=== PATIENT | male | born 1955 | race Caucasian/White ===

== ENCOUNTER 2016-09-30 15:04 | Emergency (ER) | payer MEDICARE, MEDICAID ==
[~2016-09-30 15:04] MED LIST: /HYDR10T PO; /LAMO20TA PO; /MOM400 PO; ABIL15TA PO; ABIL15TA2 PO; ACET-654 PO; ACET50TA PO; ALBU17IN2 INH; ARTISOL10 OU; ARTISOL2 OU; ASTE137S; ATIV2INJ2 IM; ATOR1TAB19 PO; AUGM500T34 PO; AUGM875T27 PO; AZEL0.055; AZEL0.1S3; BENZ1TA PO; BENZ1TAB PO; CALC0.25 PO; CARV3.12 PO; CEFD1CAP8 PO; CEPH500C PO; CLIN1CAP5 PO; CLON1TAB PO; COLA100C PO; COUM1TAB17 PO; COUM7.5T PO; DEPA500T2 PO; DIPH50VL IM; DOCU100T PO; DOXY100C PO; DOXY10CA PO; DOXY200C PO; DOXY75CA3 PO; ECON1CRE TOP; FLON0.05; FLON0.054; FLON1SPR; FRUICHW PO; HALD5INJ2 IM; HYDR-3363 PO; HYDR25T PO; KETOPOW TOP; KLON1TAB PO; LAMI200T3 PO; LATU80TA PO; LEVA250T PO; LIPI10TA PO; LITH1TAB PO; LITH300C PO; LITH300T2 PO; LOPR50TA PO; LORA2TA IM; MUPI2OI TOP; MYLASS PO; NATURAL TEARS OU; NYST100024 TOP; NYST10CR TOP; OLAN10TA2 PO; OMEP40CA2 PO; OXCA150T PO; PRIL20CA9 PO; PRIL40CA PO; RISP4TAB33 PO; ROCA0.25 PO; SENN15UDC PO; THERTAB30 PO; TRIL150T PO; TYLE325T5 PO; VITMTA PO; ZYPR15TA PO; ZYPR20TA PO; [UNRECOGNIZED DRUG - CODE] IM; [UNRECOGNIZED DRUG - CODE] TOP; [UNRECOGNIZED DRUG - OTHER] TOP
[2016-09-30 15:51] LABS: BASO % 0.6 % (0.0-1.0); EOS # 0.3 K/mm3 (0.0-0.50); EOS % 7.5 % (0.0-3.0); LARGE UNSTAINED CELL # 0.1 K/mm3 (0.0-0.4); LARGE UNSTAINED CELL % 3.1 % (0.0-4.0); LYMPH # 1.3 K/mm3 (1.5-4.5); LYMPH % 33.5 % (24.0-44.0); MEAN CORPUSCULAR HEMOGLOBIN 29.6 pg (27.0-33.0); MEAN CORPUSCULAR HGB CONC 32.5 g/dl (32.0-36.5); MEAN CORPUSCULAR VOLUME 91.2 fl (80.0-96.0); MONO # 0.3 K/mm3 (0.0-0.8); MONO % 8.2 % (0.0-5.0); NEUTROPHILS # 1.7 K/mm3 (1.8-7.7); PLATELET COUNT, AUTOMATED 167 k/mm3 (150-450); RED CELL DISTRIBUTION WIDTH 13.7 % (11.5-14.5); WHITE BLOOD COUNT 3.6 K/mm3 (4.0-10.0)
[2016-09-30 15:59] LABS: INR 2.4
[2016-09-30 16:23] LABS: CALCIUM LEVEL 9.5 MG/DL (8.8-10.2); CREATININE FOR GFR 2.03 MG/DL (0.70-1.30); GLOMERULAR FILTRATION RATE 35.8 (>49); POTASSIUM SERUM 4.2 MEQ/L (3.5-5.1)
--- NOTE | 2016-09-30 17:01 | REP ---
RIGHT LOWER EXTREMITY DOPPLER VENOUS ULTRASOUND: 09/30/2016. Comparison: 10/26/2015. Clinical history: Right lower extremity pain. Evaluate for DVT. Technique: The deep venous system of the right lower extremity is evaluated with king scale imaging, compression ultrasound, color imaging and duplex Doppler interrogation. Examination from the groin through the popliteal fossa into the proximal calf. Findings: There is full compressibility from the common femoral vein in the inguinal region through the popliteal vein. Color imaging confirms patency throughout the course of the deep venous system. There is respiratory variation and augmented flow at all levels. Impression: 1. No Doppler venous ultrasound evidence of DVT in the right lower extremity. Signed by Emiliano Morrlel MD 09/30/2016 04:52 P
--- NOTE | 2016-09-30 18:02 | EDDOCDS ---
Nurse's Notes [facility] Name: Palmira Gerard Age: 61 yrs Sex: Male : 1955 Arrival Date: 09/30/2016 Time: 15:04 Bed 15 Private MD: Diagnosis: Pain in unspecified limb-right - transient - no signs of DVT or cellulitis at this point Presentation: 09/30 15:10 Presenting complaint: EMS states: Pt with chronic cellulitis with reported pain to both kc3 legs. Adult Sepsis Screening:. Suicide/Homicide risk assessment- Unable to assess, due to patient's chronic mental disability. 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 Transition of care: patient was received from [facility]. 15:10 Acuity: LETITIA Level 3 kc3 15:10 Method Of Arrival: Ambulance kc3 15:22 Adult Sepsis Screening: The patient does not have new or worsening altered mentation. kc3 Patient's respiratory rate is less than 22. Systolic blood pressure is greater than 100. Patient has a qSOFA score of 0- Negative Sepsis Screen. Triage Assessment: 15:18 General: Appears in no apparent distress, comfortable, Behavior is agitated. Pain: kc3 Location: right leg and left leg. HIV screening NA for this visit Offered previously. Neurological: Level of Consciousness is awake, alert, Oriented to person, place. Respiratory: Airway is patent Respiratory effort is even, unlabored. Musculoskeletal: Circulation, motion, and sensation intact. Historical: - Allergies: NSAIDS; - Home Meds: 1. cogentin benztropine 1 mg twice a day 2. theragram M 1 tab daily 3. Colace 100 mg oral cap 2 caps twice a day 4. Klonopin 1 mg Oral tab 1 tab 3 times per day 5. Ativan 2mg IM as needed 6. Flonase 50 mcg/actuation Nasal spsn 2 sprays once daily 7. Zyprexa 30 mg Oral twice a day 8. lithium carbonate 300 mg Oral TbER 2 times per day 9. Lamictal 200 mg Oral tab 1 tab 2 times per day 10. Prilosec 40 mg Oral cpDR 1 cap once daily 11. astelin 2 sprays twice a day 12. Coreg 3.125 mg Oral tab 1 tab every 12 hours 13. Atarax 25 mg Oral tab 1 tab 3 times per day 14. nystatin 100,000 unit/gram Topical powd 2 times per day 15. Lipitor 10 mg Oral tab 1 tab once daily 16. Coumadin 7.5 mg Oral tab 1 tab daily 17. Keflex 500 mg Oral cap daily 18. calcitriol 0.25 mcg oral cap 1 cap 5 x a week 19. Latuda 60 mg oral tab 2 tabs once daily 20. Natural Tears (PF) ophthalmic four times a day as needed 21. Triamcinolone Acetonide Topical as needed 22. nystatin 100,000 unit/gram Topical powd 2 times per day 23. Hydrocortisone Topical as needed 24. Eucerin Topical crea as needed - PMHx: Chronic Renal Insufficiency; Diabetes - NIDDM: controlled; GERD; Hypercholesterolemia; mild mental retardation; Hypertension; Schizo-Affective Disorder; Seizure Disorder; - PSHx: none; - Social history: No barriers to communication noted, The patient speaks fluent French, Speaks appropriately for age, Smoking status: Patient uses tobacco products, light tobacco smoker. - Family history: Not pertinent. - : The pt / caregiver states he / she is on anticoagulants: coumadin. Home medication list is obtained from the facility MAR. - Exposure Risk Screening:: None identified. Screenin:20 Screening information is obtained from residence staff. Fall risk: At risk due to kc3 apparent cognitive impairment, The following interventions are performed due to a positive Fall Risk Screen: Fall Risk is added to Special Handling on the patient Summary Screen. A Fall Risk Bracelet was applied to the patient. Side Rails are placed in the up position. A Call Gomes is given with instruction to call for help when getting out of bed. Fall Alert bracelet is placed on the patient. Assistance ADL's: Requires assistance with meal preparation, this assistance is provided by residence staff, ambulation, assistance is provided by residence staff, housework, assistance is provided by residence staff, medication administration, assistance is provided by residence staff. Abuse/DV Screen: The patient / caregiver reports he/she is: not in a situation that causes fear, pain or injury. Nutritional screening: No deficits noted. Advance Directives: Currently, there is a health care proxy, Natalie Bright. home support is adequate. Assessment: 15:22 General: See triage for initial assessment. . kc3 16:00 General: Caregivers at bedside. Pt given magazines. . kc3 17:00 General: Pt ambulated to restroom and back to bed without assistance. . kc3 17:30 General: Pt given room service tray. . kc3 17:56 General: Appears in no apparent distress, comfortable, Behavior is appropriate for age, kc3 cooperative, Caregivers at bedside. . Respiratory: Respiratory effort is even, unlabored. Derm: Skin is pink, warm & dry. 17:57 General: Appears in no apparent distress, comfortable, Behavior is appropriate for age. kc3 Respiratory: Respiratory effort is even, unlabored. Derm: Skin is pink, warm & dry. Vital Signs: 15:12 BP 110 / 74; Pulse 84; Resp 16; Temp 99.1(TE); Pulse Ox 96% on R/A; Weight 72.57 kg; kc3 Height 5 ft. 7 in. (170.18 cm); 17:59 BP 140 / 87; Pulse 73; Resp 18; Temp 97.6(TE); Pulse Ox 97% on R/A; kc3 15:12 Body Mass Index 25.06 (72.57 kg, 170.18 cm) kc3 Vitals: 15:12 Log In Time N/A - ambulance arrival. kc3 ED Course: 15:05 Patient visited by Amanda Santos, Field Examiner. deg 15:05 Patient moved to Waiting deg 15:06 Mira Ramachandran RN is Primary Nurse. deg 15:06 Patient moved to 15 deg 15:12 Alice Fish MD is Attending Physician. ml 15:12 Patient visited by Alice Fish MD. ml 15:12 Triage Initiated kc3 15:23 The patient / caregiver is instructed regarding the plan of care and ED course. kc3 15:41 PTT Sent. kc3 15:41 PT/INR Sent. kc3 15:41 MED Profile Sent. kc3 15:42 CBC with Diff Sent. kc3 15:44 Patient visited by Mira Ramachandran RN. kc3 15:54 [facility] Payment Agreement was scanned into [employer] and attached to record. zo 15:57 Patient name changed from Palmira\S\\S\Tremonte\S\ to Palmira\S\ \S\Tremonte. EDMS 16:02 Patient moved to Ultrasound hgl 16:20 Patient visited by Mira Ramachandran RN. kc3 16:20 Patient moved to 15 kc3 16:51 Patient visited by Mira Ramachandran RN. kc3 17:34 Patient visited by Mira Ramachandran RN. kc3 17:37 US Lower Extremity R/O DVT Returned. EDIA 17:42 Inderjit Fountain PA is Referral Physician. ml 18:00 No IV's were initiated during this patient's visit. No procedures done that require kc3 assistance. Order Results: Lab Order: CBC with Diff; SPEC'M 09/30/16 15:36 Test: WHITE BLOOD COUNT; Value: 3.6; Range: 4.0-10.0; Abnormal: Below low normal; Units: K/mm3; Status: F Test: RED BLOOD COUNT; Value: 3.50; Range: 4.30-6.10; Abnormal: Below low normal; Units: M/mm3; Status: F Test: HEMOGLOBIN; Value: 10.4; Range: 14.0-18.0; Abnormal: Below low normal; Units: g/dl; Status: F Test: HEMATOCRIT; Value: 31.9; Range: 42.0-52.0; Abnormal: Below low normal; Units: %; Status: F Test: MEAN CORPUSCULAR VOLUME; Value: 91.2; Range: 80.0-96.0; Units: fl; Status: F Test: MEAN CORPUSCULAR HEMOGLOBIN; Value: 29.6; Range: 27.0-33.0; Units: pg; Status: F Test: MEAN CORPUSCULAR HGB CONC; Value: 32.5; Range: 32.0-36.5; Units: g/dl; Status: F Test: RED CELL DISTRIBUTION WIDTH; Value: 13.7; Range: 11.5-14.5; Units: %; Status: F Test: PLATELET COUNT, AUTOMATED; Value: 167; Range: 150-450; Units: k/mm3; Status: F Test: NEUTROPHILS %; Value: 47.0; Range: 36.0-66.0; Units: %; Status: F Test: LYMPH %; Value: 33.5; Range: 24.0-44.0; Units: %; Status: F Test: MONO %; Value: 8.2; Range: 0.0-5.0; Abnormal: Above high normal; Units: %; Status: F Test: EOS %; Value: 7.5; Range: 0.0-3.0; Abnormal: Above high normal; Units: %; Status: F Test: BASO %; Value: 0.6; Range: 0.0-1.0; Units: %; Status: F Test: LARGE UNSTAINED CELL %; Value: 3.1; Range: 0.0-4.0; Units: %; Status: F Test: NEUTROPHILS #; Value: 1.7; Range: 1.8-7.7; Abnormal: Below low normal; Units: K/mm3; Status: F Test: LYMPH #; Value: 1.3; Range: 1.5-4.5; Abnormal: Below low normal; Units: K/mm3; Status: F Test: MONO #; Value: 0.3; Range: 0.0-0.8; Units: K/mm3; Status: F Test: EOS #; Value: 0.3; Range: 0.0-0.50; Units: K/mm3; Status: F Test: BASO #; Value: 0.0; Range: 0.0-0.2; Units: K/mm3; Status: F Test: LARGE UNSTAINED CELL #; Value: 0.1; Range: 0.0-0.4; Units: K/mm3; Status: F Lab Order: [facility]; [facility]' 09/30/16 15:36 Test: GLUCOSE, FASTING; Value: 112; Range: 80-110; Abnormal: Above high normal; Units: MG/DL; Status: F Test: BLOOD UREA NITROGEN; Value: 28; Range: 7-18; Abnormal: Above high normal; Units: MG/DL; Status: F Test: CREATININE FOR GFR; Value: 2.03; Range: 0.70-1.30; Abnormal: Above high normal; Units: MG/DL; Status: F Test: GLOMERULAR FILTRATION RATE; Value: 35.8; Range: >49; Abnormal: Below low normal; Status: F Test: SODIUM LEVEL; Value: 144; Range: 136-145; Units: MEQ/L; Status: F Test: POTASSIUM SERUM; Value: 4.2; Range: 3.5-5.1; Units: MEQ/L; Status: F Test: CHLORIDE LEVEL; Value: 107; Range: 98-107; Units: MEQ/L; Status: F Test: CARBON DIOXIDE LEVEL; Value: 31; Range: 21-32; Units: MEQ/L; Status: F Test: ANION GAP; Value: 6; Range: 8-16; Abnormal: Below low normal; Units: MEQ/L; Status: F Test: CALCIUM LEVEL; Value: 9.5; Range: 8.8-10.2; Units: MG/DL; Status: F Test Note: ; Units are mL/min/1.73 m2 Chronic Kidney Disease Staging per NKF: Stage I & II GFR >=60 Normal to Mildly Decreased Stage III GFR 30-59 Moderately Decreased Stage IV GFR 15-29 Severely Decreased Stage V GFR <15 Very Little GFR Left ESRD GFR <15 on TRACE CLERK Lab Order: PT/INR; SPEC'M 09/30/16 15:36 Test: PROTHROMBIN TIME; Value: 26.2; Range: 12.3-14.5; Abnormal: Above high normal; Units: SECONDS; Status: F Test: INR; Value: 2.40; Status: F Test Note: ; THERAPUTIC HUMAN INR VALUES INDICATIONS NORMAL RANGES PROPHYLAXIS/TREATMENT OF: VENOUS THROMBOSIS 2.0-3.0 PULMONARY EMBOLISM 2.0-3.0 PREVENTION OF SYSTEMIC EMBOLISM FROM: TISSUE HEART VALVES 2.0-3.0 ACUTE MYOCARDIAL INFARCTION 2.0-3.0 VALVULAR HEART DISEASE 2.0-3.0 ATRIAL FIBRILLATION 2.0-3.0 MECHANICAL VALVES(HIGH RISK) 2.5-3.5 RECURRENT MYOCARDIAL INFARCTION 2.5-3.5 Lab Order: PTT; SPEC'09/30/16 15:36 Test: PARTIAL THROMBOPLASTIN TIME; Value: 64.2; Range: 26.6-37.1; Abnormal: Above high normal; Units: SECONDS; Status: F Radiology Order: US Lower Extremity R/O DVT Test: US Lower Extremity R/O DVT REASON FOR EXAMINATION: pain; RIGHT LOWER EXTREMITY DOPPLER VENOUS ULTRASOUND: 09/30/2016.; ; Comparison: 10/26/2015.; ; Clinical history: Right lower extremity pain. Evaluate for DVT.; ; Technique: The deep venous system of the right lower extremity is evaluated with; king scale imaging, compression ultrasound, color imaging and duplex Doppler; interrogation. Examination from the groin through the popliteal fossa into the; proximal calf.; ; Findings: There is full compressibility from the common femoral vein in the; inguinal region through the popliteal vein. Color imaging confirms patency; throughout the course of the deep venous system. There is respiratory variation; and augmented flow at all levels.; ; Impression:; 1. No Doppler venous ultrasound evidence of DVT in the right lower extremity.; ; ; Signed by; Emiliano Morrell MD 09/30/2016 04:52 P; Outcome: 17:42 Discharge ordered by Provider. 18:00 Discharge Assessment: Patient awake, alert and oriented x 3. No cognitive and/or kc3 functional deficits noted. Patient verbalized understanding of disposition instructions. patient administered narcotics - no. The following High Risk Discharge criteria are identified: None. Discharged to [facility]. Condition: stable. Discharge instructions given to hydrometer finisher, Instructed on discharge instructions, follow up and referral plans. Demonstrated understanding of instructions, Pt was receptive of discharge instructions/ teaching. Ultrasound Study completed. Property :Personal belongings accompany Pt. 18:01 Patient left the ED. kc3 Signatures: Dispatcher [employer] Alice Jackson MD MD ml Murray, Denise, Field Examiner Unit Iker Braden Huy hgl Crane, Kelsi,RN RN kc3 MTDD
--- NOTE | 2016-09-30 18:02 | EDDOCDS ---
Physician Documentation [facility] Name: Palmira Gerard Age: 61 yrs Sex: Male : 1955 Arrival Date: 09/30/2016 Time: 15:04 Bed 15 Private MD: Disposition: 09/30/16 17:42 Discharged to Home/Self Care. Impression: Pain in unspecified limb - right - transient - no signs of DVT or cellulitis at this point. - Condition is Stable. - Discharge Instructions: Pain Without a Known Cause. - Medication Reconciliation, Local Pharmacy Hours form. - Follow up: Inderjit Fountain PA; When: 2 - 3 days. - Problem is new. - Symptoms are unchanged. - Notes: there are no signs of cellulitis or DVT at this point in time. REturn if fever, redness, increasing pain. Follow up with Inderjit Fountain,. Historical: - Allergies: NSAIDS; - Home Meds: 1. cogentin benztropine 1 mg twice a day 2. theragram M 1 tab daily 3. Colace 100 mg oral cap 2 caps twice a day 4. Klonopin 1 mg Oral tab 1 tab 3 times per day 5. Ativan 2mg IM as needed 6. Flonase 50 mcg/actuation Nasal spsn 2 sprays once daily 7. Zyprexa 30 mg Oral twice a day 8. lithium carbonate 300 mg Oral TbER 2 times per day 9. Lamictal 200 mg Oral tab 1 tab 2 times per day 10. Prilosec 40 mg Oral cpDR 1 cap once daily 11. astelin 2 sprays twice a day 12. Coreg 3.125 mg Oral tab 1 tab every 12 hours 13. Atarax 25 mg Oral tab 1 tab 3 times per day 14. nystatin 100,000 unit/gram Topical powd 2 times per day 15. Lipitor 10 mg Oral tab 1 tab once daily 16. Coumadin 7.5 mg Oral tab 1 tab daily 17. Keflex 500 mg Oral cap daily 18. calcitriol 0.25 mcg oral cap 1 cap 5 x a week 19. Latuda 60 mg oral tab 2 tabs once daily 20. Natural Tears (PF) ophthalmic four times a day as needed 21. Triamcinolone Acetonide Topical as needed 22. nystatin 100,000 unit/gram Topical powd 2 times per day 23. Hydrocortisone Topical as needed 24. Eucerin Topical crea as needed - PMHx: Chronic Renal Insufficiency; Diabetes - NIDDM: controlled; GERD; Hypercholesterolemia; mild mental retardation; Hypertension; Schizo-Affective Disorder; Seizure Disorder; - PSHx: none; - Social history: No barriers to communication noted, The patient speaks fluent Lithuanian, Speaks appropriately for age, Smoking status: Patient uses tobacco products, light tobacco smoker. - Family history: Not pertinent. - : The pt / caregiver states he / she is on anticoagulants: coumadin. Home medication list is obtained from the facility OCT. - Exposure Risk Screening:: None identified. Vital Signs: 09/30 15:12 BP 110 / 74; Pulse 84; Resp 16; Temp 99.1(TE); Pulse Ox 96% on R/A; Weight 72.57 kg / kc3 159.99 lbs; Height 5 ft. 7 in. (170.18 cm); 17:59 BP 140 / 87; Pulse 73; Resp 18; Temp 97.6(TE); Pulse Ox 97% on R/A; kc3 15:12 Body Mass Index 25.06 (72.57 kg, 170.18 cm) kc3 MDM: 15:34 CBC with Diff Ordered. EDMS 15:34 MED Profile Ordered. EDMS 15:34 PT/INR Ordered. EDMS 15:34 PTT Ordered. EDMS 15:35 US Lower Extremity R/O DVT Ordered. EDMS 15:45 Financial registration complete. zo 15:54 [facility] Payment Agreement was scanned into [employer] and attached to record. zo 16:23 REGULAR DIET ROOM SERVICE ED+DIET ordered. EDMS 17:02 CBC with Diff Reviewed. ml 17:02 MED Profile Reviewed. ml 17:02 PT/INR Reviewed. ml 17:02 PTT Reviewed. ml Signatures: Dispatcher [employer] EDMS Alice Fish MD MD ml Olin, Zoeann zo Crane, KelsiRN RN kc3 The chart was reviewed and I authenticate all verbal orders and agree with the evaluation and treatment provided.Attachments: 15:54 [facility] Payment Agreement zo MTDD
--- NOTE | 2016-10-02 19:03 | EDDOCDS ---
Nurse's Notes [facility] Name: Lalito Gerard Age: 61 yrs Sex: Male : 1955 Arrival Date: 09/30/2016 Time: 15:04 Bed 15 Private MD: Diagnosis: Pain in unspecified limb-right - transient - no signs of DVT or cellulitis at this point Presentation: 09/30 15:10 Presenting complaint: EMS states: Pt with chronic cellulitis with reported pain to both kc3 legs. Adult Sepsis Screening:. Suicide/Homicide risk assessment- Unable to assess, due to patient's chronic mental disability. Status: Patient is not a captain room service or dependent. Transition of care: patient was received from [facility]. 15:10 Acuity: LETITIA Level 3 kc3 15:10 Method Of Arrival: Ambulance kc3 15:22 Adult Sepsis Screening: The patient does not have new or worsening altered mentation. kc3 Patient's respiratory rate is less than 22. Systolic blood pressure is greater than 100. Patient has a qSOFA score of 0- Negative Sepsis Screen. Triage Assessment: 15:18 General: Appears in no apparent distress, comfortable, Behavior is agitated. Pain: kc3 Location: right leg and left leg. HIV screening NA for this visit Offered previously. Neurological: Level of Consciousness is awake, alert, Oriented to person, place. Respiratory: Airway is patent Respiratory effort is even, unlabored. Musculoskeletal: Circulation, motion, and sensation intact. Historical: - Allergies: NSAIDS; - Home Meds: 1. cogentin benztropine 1 mg twice a day 2. theragram M 1 tab daily 3. Colace 100 mg oral cap 2 caps twice a day 4. Klonopin 1 mg Oral tab 1 tab 3 times per day 5. Ativan 2mg IM as needed 6. Flonase 50 mcg/actuation Nasal spsn 2 sprays once daily 7. Zyprexa 30 mg Oral twice a day 8. lithium carbonate 300 mg Oral TbER 2 times per day 9. Lamictal 200 mg Oral tab 1 tab 2 times per day 10. Prilosec 40 mg Oral cpDR 1 cap once daily 11. astelin 2 sprays twice a day 12. Coreg 3.125 mg Oral tab 1 tab every 12 hours 13. Atarax 25 mg Oral tab 1 tab 3 times per day 14. nystatin 100,000 unit/gram Topical powd 2 times per day 15. Lipitor 10 mg Oral tab 1 tab once daily 16. Coumadin 7.5 mg Oral tab 1 tab daily 17. Keflex 500 mg Oral cap daily 18. calcitriol 0.25 mcg oral cap 1 cap 5 x a week 19. Latuda 60 mg oral tab 2 tabs once daily 20. Natural Tears (PF) ophthalmic four times a day as needed 21. Triamcinolone Acetonide Topical as needed 22. nystatin 100,000 unit/gram Topical powd 2 times per day 23. Hydrocortisone Topical as needed 24. Eucerin Topical crea as needed - PMHx: Chronic Renal Insufficiency; Diabetes - NIDDM: controlled; GERD; Hypercholesterolemia; mild mental retardation; Hypertension; Schizo-Affective Disorder; Seizure Disorder; - PSHx: none; - Social history: No barriers to communication noted, The patient speaks fluent Latvian, Speaks appropriately for age, Smoking status: Patient uses tobacco products, light tobacco smoker. - Family history: Not pertinent. - : The pt / caregiver states he / she is on anticoagulants: coumadin. Home medication list is obtained from the facility MAR. - Exposure Risk Screening:: None identified. Screenin:20 Screening information is obtained from residence staff. Fall risk: At risk due to kc3 apparent cognitive impairment, The following interventions are performed due to a positive Fall Risk Screen: Fall Risk is added to Special Handling on the patient Summary Screen. A Fall Risk Bracelet was applied to the patient. Side Rails are placed in the up position. A Call Gomes is given with instruction to call for help when getting out of bed. Fall Alert bracelet is placed on the patient. Assistance ADL's: Requires assistance with meal preparation, this assistance is provided by residence staff, ambulation, assistance is provided by residence staff, housework, assistance is provided by residence staff, medication administration, assistance is provided by residence staff. Abuse/DV Screen: The patient / caregiver reports he/she is: not in a situation that causes fear, pain or injury. Nutritional screening: No deficits noted. Advance Directives: Currently, there is a health care proxy, Natalie Bright. home support is adequate. Assessment: 15:22 General: See triage for initial assessment. . kc3 16:00 General: Caregivers at bedside. Pt given magazines. . kc3 17:00 General: Pt ambulated to restroom and back to bed without assistance. . kc3 17:30 General: Pt given room service tray. . kc3 17:56 General: Appears in no apparent distress, comfortable, Behavior is appropriate for age, kc3 cooperative, Caregivers at bedside. . Respiratory: Respiratory effort is even, unlabored. Derm: Skin is pink, warm & dry. 17:57 General: Appears in no apparent distress, comfortable, Behavior is appropriate for age. kc3 Respiratory: Respiratory effort is even, unlabored. Derm: Skin is pink, warm & dry. Vital Signs: 15:12 BP 110 / 74; Pulse 84; Resp 16; Temp 99.1(TE); Pulse Ox 96% on R/A; Weight 72.57 kg; kc3 Height 5 ft. 7 in. (170.18 cm); 17:59 BP 140 / 87; Pulse 73; Resp 18; Temp 97.6(TE); Pulse Ox 97% on R/A; kc3 15:12 Body Mass Index 25.06 (72.57 kg, 170.18 cm) kc3 Vitals: 15:12 Log In Time N/A - ambulance arrival. kc3 ED Course: 15:05 Patient visited by Amanda Santos, Chips Screen Tender. deg 15:05 Patient moved to Waiting deg 15:06 Mira Ramachandran RN is Primary Nurse. deg 15:06 Patient moved to 15 deg 15:12 Alice Fish MD is Attending Physician. ml 15:12 Patient visited by Alice Fish MD. ml 15:12 Triage Initiated kc3 15:23 The patient / caregiver is instructed regarding the plan of care and ED course. kc3 15:41 PTT Sent. kc3 15:41 PT/INR Sent. kc3 15:41 MED Profile Sent. kc3 15:42 CBC with Diff Sent. kc3 15:44 Patient visited by Mira Ramachandran RN. kc3 15:54 [facility] Payment Agreement was scanned into [employer] and attached to record. zo 15:57 Patient name changed from Palmira\S\\S\Tremonte\S\ to Palmira\S\ \S\Tremonte. EDMS 16:02 Patient moved to Ultrasound hgl 16:20 Patient visited by Mira Ramachandran RN. kc3 16:20 Patient moved to 15 kc3 16:51 Patient visited by Mira Ramachandran RN. kc3 17:34 Patient visited by Mira Ramachandran RN. kc3 17:37 US Lower Extremity R/O DVT Returned. EDMS 17:42 Inderjit Fountain PA is Referral Physician. ml 18:00 No IV's were initiated during this patient's visit. No procedures done that require kc3 assistance. 10/01 14:07 T-Sheet-- Draft Copy was scanned into [employer] and attached to record. 14:22 Patient name changed from Palmira\S\ \S\Tremonte\S\ to Lalito\S\ \S\Tremonte. EDMS Order Results: Lab Order: CBC with Diff; SPEC'M 09/30/16 15:36 Test: WHITE BLOOD COUNT; Value: 3.6; Range: 4.0-10.0; Abnormal: Below low normal; Units: K/mm3; Status: F Test: RED BLOOD COUNT; Value: 3.50; Range: 4.30-6.10; Abnormal: Below low normal; Units: M/mm3; Status: F Test: HEMOGLOBIN; Value: 10.4; Range: 14.0-18.0; Abnormal: Below low normal; Units: g/dl; Status: F Test: HEMATOCRIT; Value: 31.9; Range: 42.0-52.0; Abnormal: Below low normal; Units: %; Status: F Test: MEAN CORPUSCULAR VOLUME; Value: 91.2; Range: 80.0-96.0; Units: fl; Status: F Test: MEAN CORPUSCULAR HEMOGLOBIN; Value: 29.6; Range: 27.0-33.0; Units: pg; Status: F Test: MEAN CORPUSCULAR HGB CONC; Value: 32.5; Range: 32.0-36.5; Units: g/dl; Status: F Test: RED CELL DISTRIBUTION WIDTH; Value: 13.7; Range: 11.5-14.5; Units: %; Status: F Test: PLATELET COUNT, AUTOMATED; Value: 167; Range: 150-450; Units: k/mm3; Status: F Test: NEUTROPHILS %; Value: 47.0; Range: 36.0-66.0; Units: %; Status: F Test: LYMPH %; Value: 33.5; Range: 24.0-44.0; Units: %; Status: F Test: MONO %; Value: 8.2; Range: 0.0-5.0; Abnormal: Above high normal; Units: %; Status: F Test: EOS %; Value: 7.5; Range: 0.0-3.0; Abnormal: Above high normal; Units: %; Status: F Test: BASO %; Value: 0.6; Range: 0.0-1.0; Units: %; Status: F Test: LARGE UNSTAINED CELL %; Value: 3.1; Range: 0.0-4.0; Units: %; Status: F Test: NEUTROPHILS #; Value: 1.7; Range: 1.8-7.7; Abnormal: Below low normal; Units: K/mm3; Status: F Test: LYMPH #; Value: 1.3; Range: 1.5-4.5; Abnormal: Below low normal; Units: K/mm3; Status: F Test: MONO #; Value: 0.3; Range: 0.0-0.8; Units: K/mm3; Status: F Test: EOS #; Value: 0.3; Range: 0.0-0.50; Units: K/mm3; Status: F Test: BASO #; Value: 0.0; Range: 0.0-0.2; Units: K/mm3; Status: F Test: LARGE UNSTAINED CELL #; Value: 0.1; Range: 0.0-0.4; Units: K/mm3; Status: F Lab Order: MED Profile; [facility]' 09/30/16 15:36 Test: GLUCOSE, FASTING; Value: 112; Range: 80-110; Abnormal: Above high normal; Units: MG/DL; Status: F Test: BLOOD UREA NITROGEN; Value: 28; Range: 7-18; Abnormal: Above high normal; Units: MG/DL; Status: F Test: CREATININE FOR GFR; Value: 2.03; Range: 0.70-1.30; Abnormal: Above high normal; Units: MG/DL; Status: F Test: GLOMERULAR FILTRATION RATE; Value: 35.8; Range: >49; Abnormal: Below low normal; Status: F Test: SODIUM LEVEL; Value: 144; Range: 136-145; Units: MEQ/L; Status: F Test: POTASSIUM SERUM; Value: 4.2; Range: 3.5-5.1; Units: MEQ/L; Status: F Test: CHLORIDE LEVEL; Value: 107; Range: 98-107; Units: MEQ/L; Status: F Test: CARBON DIOXIDE LEVEL; Value: 31; Range: 21-32; Units: MEQ/L; Status: F Test: ANION GAP; Value: 6; Range: 8-16; Abnormal: Below low normal; Units: MEQ/L; Status: F Test: CALCIUM LEVEL; Value: 9.5; Range: 8.8-10.2; Units: MG/DL; Status: F Test Note: ; Units are mL/min/1.73 m2 Chronic Kidney Disease Staging per NKF: Stage I & II GFR >=60 Normal to Mildly Decreased Stage III GFR 30-59 Moderately Decreased Stage IV GFR 15-29 Severely Decreased Stage V GFR <15 Very Little GFR Left ESRD GFR <15 on TOOL SETTER APPRENTICE Lab Order: PT/INR; SPEC'M 09/30/16 15:36 Test: PROTHROMBIN TIME; Value: 26.2; Range: 12.3-14.5; Abnormal: Above high normal; Units: SECONDS; Status: F Test: INR; Value: 2.40; Status: F Test Note: ; THERAPUTIC HUMAN INR VALUES INDICATIONS NORMAL RANGES PROPHYLAXIS/TREATMENT OF: VENOUS THROMBOSIS 2.0-3.0 PULMONARY EMBOLISM 2.0-3.0 PREVENTION OF SYSTEMIC EMBOLISM FROM: TISSUE HEART VALVES 2.0-3.0 ACUTE MYOCARDIAL INFARCTION 2.0-3.0 VALVULAR HEART DISEASE 2.0-3.0 ATRIAL FIBRILLATION 2.0-3.0 MECHANICAL VALVES(HIGH RISK) 2.5-3.5 RECURRENT MYOCARDIAL INFARCTION 2.5-3.5 Lab Order: PTT; SPEC'M 09/30/16 15:36 Test: PARTIAL THROMBOPLASTIN TIME; Value: 64.2; Range: 26.6-37.1; Abnormal: Above high normal; Units: SECONDS; Status: F Radiology Order: US Lower Extremity R/O DVT Test: US Lower Extremity R/O DVT REASON FOR EXAMINATION: pain; RIGHT LOWER EXTREMITY DOPPLER VENOUS ULTRASOUND: 09/30/2016.; ; Comparison: 10/26/2015.; ; Clinical history: Right lower extremity pain. Evaluate for DVT.; ; Technique: The deep venous system of the right lower extremity is evaluated with; king scale imaging, compression ultrasound, color imaging and duplex Doppler; interrogation. Examination from the groin through the popliteal fossa into the; proximal calf.; ; Findings: There is full compressibility from the common femoral vein in the; inguinal region through the popliteal vein. Color imaging confirms patency; throughout the course of the deep venous system. There is respiratory variation; and augmented flow at all levels.; ; Impression:; 1. No Doppler venous ultrasound evidence of DVT in the right lower extremity.; ; ; Signed by; Emiliano Morrell MD 09/30/2016 04:52 P; Outcome: 09/30 17:42 Discharge ordered by Provider. 18:00 Discharge Assessment: Patient awake, alert and oriented x 3. No cognitive and/or kc3 functional deficits noted. Patient verbalized understanding of disposition instructions. patient administered narcotics - no. The following High Risk Discharge criteria are identified: None. Discharged to [facility]. Condition: stable. Discharge instructions given to deputy probation officer, Instructed on discharge instructions, follow up and referral plans. Demonstrated understanding of instructions, Pt was receptive of discharge instructions/ teaching. Ultrasound Study completed. Property :Personal belongings accompany Pt. 18:01 Patient left the ED. kc3 Signatures: Dispatcher [employer] EDAlice Mnotelongo MD MD ml Murray, Denise, Chips Screen Tender Unit deg Karolina Leonard, Iker Mcqueen Huy Mira Mathias,HEIKE RN kc3 Chart Complete MTDD
--- NOTE | 2016-10-02 19:03 | EDDOCDS ---
Physician Documentation [facility] Name: Lalito Gerard Age: 61 yrs Sex: Male : 1955 Arrival Date: 09/30/2016 Time: 15:04 Bed 15 Private MD: Disposition: 09/30/16 17:42 Discharged to Home/Self Care. Impression: Pain in unspecified limb - right - transient - no signs of DVT or cellulitis at this point. - Condition is Stable. - Discharge Instructions: Pain Without a Known Cause. - Medication Reconciliation, Local Pharmacy Hours form. - Follow up: Inderjit Fountain PA; When: 2 - 3 days. - Problem is new. - Symptoms are unchanged. - Notes: there are no signs of cellulitis or DVT at this point in time. REturn if fever, redness, increasing pain. Follow up with Inderjit Fountain,. Historical: - Allergies: NSAIDS; - Home Meds: 1. cogentin benztropine 1 mg twice a day 2. theragram M 1 tab daily 3. Colace 100 mg oral cap 2 caps twice a day 4. Klonopin 1 mg Oral tab 1 tab 3 times per day 5. Ativan 2mg IM as needed 6. Flonase 50 mcg/actuation Nasal spsn 2 sprays once daily 7. Zyprexa 30 mg Oral twice a day 8. lithium carbonate 300 mg Oral TbER 2 times per day 9. Lamictal 200 mg Oral tab 1 tab 2 times per day 10. Prilosec 40 mg Oral cpDR 1 cap once daily 11. astelin 2 sprays twice a day 12. Coreg 3.125 mg Oral tab 1 tab every 12 hours 13. Atarax 25 mg Oral tab 1 tab 3 times per day 14. nystatin 100,000 unit/gram Topical powd 2 times per day 15. Lipitor 10 mg Oral tab 1 tab once daily 16. Coumadin 7.5 mg Oral tab 1 tab daily 17. Keflex 500 mg Oral cap daily 18. calcitriol 0.25 mcg oral cap 1 cap 5 x a week 19. Latuda 60 mg oral tab 2 tabs once daily 20. Natural Tears (PF) ophthalmic four times a day as needed 21. Triamcinolone Acetonide Topical as needed 22. nystatin 100,000 unit/gram Topical powd 2 times per day 23. Hydrocortisone Topical as needed 24. Eucerin Topical crea as needed - PMHx: Chronic Renal Insufficiency; Diabetes - NIDDM: controlled; GERD; Hypercholesterolemia; mild mental retardation; Hypertension; Schizo-Affective Disorder; Seizure Disorder; - PSHx: none; - Social history: No barriers to communication noted, The patient speaks fluent Austrian, Speaks appropriately for age, Smoking status: Patient uses tobacco products, light tobacco smoker. - Family history: Not pertinent. - : The pt / caregiver states he / she is on anticoagulants: coumadin. Home medication list is obtained from the facility OCT. - Exposure Risk Screening:: None identified. Vital Signs: 09/30 15:12 BP 110 / 74; Pulse 84; Resp 16; Temp 99.1(TE); Pulse Ox 96% on R/A; Weight 72.57 kg / kc3 159.99 lbs; Height 5 ft. 7 in. (170.18 cm); 17:59 BP 140 / 87; Pulse 73; Resp 18; Temp 97.6(TE); Pulse Ox 97% on R/A; kc3 15:12 Body Mass Index 25.06 (72.57 kg, 170.18 cm) kc3 MDM: 15:34 CBC with Diff Ordered. EDMS 15:34 MED Profile Ordered. EDMS 15:34 PT/INR Ordered. EDMS 15:34 PTT Ordered. EDMS 15:35 US Lower Extremity R/O DVT Ordered. EDMS 15:45 Financial registration complete. zo 15:54 [facility] Payment Agreement was scanned into [employer] and attached to record. zo 16:23 REGULAR DIET ROOM SERVICE ED+DIET ordered. EDMS 17:02 CBC with Diff Reviewed. ml 17:02 MED Profile Reviewed. ml 17:02 PT/INR Reviewed. ml 17:02 PTT Reviewed. ml 10/01 14:07 T-Sheet-- Draft Copy was scanned into [employer] and attached to record. gb Signatures: Dispatcher [employer] EDMS Alice Fish MD MD ml Barnhardt, Gloria, Reg Reg Iker Jurado Kelsi,HEIKE RN kc3 The chart was reviewed and I authenticate all verbal orders and agree with the evaluation and treatment provided.Attachments: 09/30 15:54 [facility] Payment Agreement zo 10/01 14:07 T-Sheet-- Draft Copy gb Chart Complete MTDD
--- NOTE | 2016-10-02 19:03 | EDDOCDS ---
Physician Documentation [facility] Name: Lalito Gerard Age: 61 yrs Sex: Male : 1955 Arrival Date: 09/30/2016 Time: 15:04 Bed 15 Private MD: Disposition: 09/30/16 17:42 Discharged to Home/Self Care. Impression: Pain in unspecified limb - right - transient - no signs of DVT or cellulitis at this point. - Condition is Stable. - Discharge Instructions: Pain Without a Known Cause. - Medication Reconciliation, Local Pharmacy Hours form. - Follow up: Inderjit Fountain PA; When: 2 - 3 days. - Problem is new. - Symptoms are unchanged. - Notes: there are no signs of cellulitis or DVT at this point in time. REturn if fever, redness, increasing pain. Follow up with Inderjit Fountain,. Historical: - Allergies: NSAIDS; - Home Meds: 1. cogentin benztropine 1 mg twice a day 2. theragram M 1 tab daily 3. Colace 100 mg oral cap 2 caps twice a day 4. Klonopin 1 mg Oral tab 1 tab 3 times per day 5. Ativan 2mg IM as needed 6. Flonase 50 mcg/actuation Nasal spsn 2 sprays once daily 7. Zyprexa 30 mg Oral twice a day 8. lithium carbonate 300 mg Oral TbER 2 times per day 9. Lamictal 200 mg Oral tab 1 tab 2 times per day 10. Prilosec 40 mg Oral cpDR 1 cap once daily 11. astelin 2 sprays twice a day 12. Coreg 3.125 mg Oral tab 1 tab every 12 hours 13. Atarax 25 mg Oral tab 1 tab 3 times per day 14. nystatin 100,000 unit/gram Topical powd 2 times per day 15. Lipitor 10 mg Oral tab 1 tab once daily 16. Coumadin 7.5 mg Oral tab 1 tab daily 17. Keflex 500 mg Oral cap daily 18. calcitriol 0.25 mcg oral cap 1 cap 5 x a week 19. Latuda 60 mg oral tab 2 tabs once daily 20. Natural Tears (PF) ophthalmic four times a day as needed 21. Triamcinolone Acetonide Topical as needed 22. nystatin 100,000 unit/gram Topical powd 2 times per day 23. Hydrocortisone Topical as needed 24. Eucerin Topical crea as needed - PMHx: Chronic Renal Insufficiency; Diabetes - NIDDM: controlled; GERD; Hypercholesterolemia; mild mental retardation; Hypertension; Schizo-Affective Disorder; Seizure Disorder; - PSHx: none; - Social history: No barriers to communication noted, The patient speaks fluent Pry[place]in[place], Speaks appropriately for age, Smoking status: Patient uses tobacco products, light tobacco smoker. - Family history: Not pertinent. - : The pt / caregiver states he / she is on anticoagulants: coumadin. Home medication list is obtained from the facility OCT. - Exposure Risk Screening:: None identified. Vital Signs: 09/30 15:12 BP 110 / 74; Pulse 84; Resp 16; Temp 99.1(TE); Pulse Ox 96% on R/A; Weight 72.57 kg / kc3 159.99 lbs; Height 5 ft. 7 in. (170.18 cm); 17:59 BP 140 / 87; Pulse 73; Resp 18; Temp 97.6(TE); Pulse Ox 97% on R/A; kc3 15:12 Body Mass Index 25.06 (72.57 kg, 170.18 cm) kc3 MDM: 15:34 CBC with Diff Ordered. EDMS 15:34 MED Profile Ordered. EDMS 15:34 PT/INR Ordered. EDMS 15:34 PTT Ordered. EDMS 15:35 US Lower Extremity R/O DVT Ordered. EDMS 15:45 Financial registration complete. zo 15:54 [facility] Payment Agreement was scanned into [employer] and attached to record. zo 16:23 REGULAR DIET ROOM SERVICE ED+DIET ordered. EDMS 17:02 CBC with Diff Reviewed. ml 17:02 MED Profile Reviewed. ml 17:02 PT/INR Reviewed. ml 17:02 PTT Reviewed. ml 10/01 14:07 T-Sheet-- Draft Copy was scanned into [employer] and attached to record. gb Signatures: Dispatcher [employer] EDMS Alice Fish MD MD ml Barnhardt, Gloria, Reg Reg Iker Jurado Kelsi,HEIKE RN kc3 The chart was reviewed and I authenticate all verbal orders and agree with the evaluation and treatment provided.Attachments: 09/30 15:54 [facility] Payment Agreement zo 10/01 14:07 T-Sheet-- Draft Copy gb Chart Complete MTDD
== END 2016-09-30 18:01 | disposition home or self-care (01) ==
LOC: M ED 15:04
DX: M79.604 Pain in right leg (principal); N18.9 Chronic kidney disease, unspecified; E11.29 Type 2 diabetes mellitus with other diabetic kidney complication; I12.9 Hypertensive chronic kidney disease with stage 1 through stage 4 chronic kidney disease, or unspecified chronic kidney disease; K21.9 Gastro-esophageal reflux disease without esophagitis; E78.00 Pure hypercholesterolemia, unspecified; F70 Mild intellectual disabilities; G40.909 Epilepsy, unspecified, not intractable, without status epilepticus; F25.9 Schizoaffective disorder, unspecified; F17.200 Nicotine dependence, unspecified, uncomplicated; Z79.01 Long term (current) use of anticoagulants; Z79.899 Other long term (current) drug therapy; Z88.6 Allergy status to analgesic agent

== ENCOUNTER → 2016-10-01 | Outpatient (CLI) | payer MEDICARE, MEDICAID ==
--- NOTE | 2016-10-01 08:46 | REP ---
Clinical: Trauma. Technique: AP, lateral, bilateral oblique views left second digit. Findings: The osseous structures and joint spaces are intact and normal. There is no evidence for acute fracture or dislocation. Surrounding soft tissues are unremarkable. No subcutaneous emphysema or radiodense foreign body. Impression: No acute fracture or dislocation. Signed by Alan Salinas MD 10/01/2016 08:38 A
== END ==
LOC: M WUC 08:14
PROVIDERS: ATTEND Physician Assistant
DX: S69.92XA Unspecified injury of left wrist, hand and finger(s), initial encounter (principal); W22.09XA Striking against other stationary object, initial encounter; Y92.89 Other specified places as the place of occurrence of the external cause; Y93.89 Activity, other specified; Y99.8 Other external cause status

== ENCOUNTER → 2016-11-01 | Outpatient (CLI) | payer MEDICARE, MEDICAID ==
[~2016-11-01] MED LIST changes: +COGE1INJ PO; -COLA100C PO; +COLA100C3 PO; +ZYPR10TA PO; +ZYPR1INJ IM; +ZYPR20TA3 PO
[2016-11-01 09:44] LABS: ALBUMIN 3.6 GM/DL (3.2-5.2); ALBUMIN/GLOBULIN RATIO 1.24 (1.00-1.93); BILIRUBIN,TOTAL 0.3 MG/DL (0.2-1.0); CREATININE FOR GFR 2.7 MG/DL (0.70-1.30); GLOMERULAR FILTRATION RATE 25.8 (>49); POTASSIUM SERUM 4.5 MEQ/L (3.5-5.1); TOTAL PROTEIN 6.5 GM/DL (6.4-8.2)
== END ==
LOC: M WUC 08:04
PROVIDERS: ATTEND Nurse Practitioner Family
DX: E11.22 Type 2 diabetes mellitus with diabetic chronic kidney disease (principal); E78.4 Other hyperlipidemia; N18.3 Chronic kidney disease, stage 3 (moderate); D63.1 Anemia in chronic kidney disease

== ENCOUNTER → 2016-11-01 | Outpatient (CLI) | payer MEDICARE, MEDICAID ==
[~2016-11-01] MED LIST changes: -COGE1INJ PO; +COLA100C PO; -COLA100C3 PO; -ZYPR10TA PO; -ZYPR1INJ IM; -ZYPR20TA3 PO
[2016-11-01 09:17] LABS: MEAN CORPUSCULAR HEMOGLOBIN 30.9 pg (27.0-33.0); MEAN CORPUSCULAR HGB CONC 33.6 g/dl (32.0-36.5); MEAN CORPUSCULAR VOLUME 91.9 fl (80.0-96.0); RED CELL DISTRIBUTION WIDTH 13.5 % (11.5-14.5); WHITE BLOOD COUNT 3.4 K/mm3 (4.0-10.0)
[2016-11-01 09:36] LABS: ALBUMIN 3.7 GM/DL (3.2-5.2); CREATININE FOR GFR 2.68 MG/DL (0.70-1.30); MAGNESIUM LEVEL 2.2 MG/DL (1.8-2.4); PHOSPHORUS LEVEL 2.2 MG/DL (2.5-4.9); POTASSIUM SERUM 4.4 MEQ/L (3.5-5.1)
== END ==
LOC: M WUC 08:09
PROVIDERS: ATTEND Internal Medicine Nephrology
DX: E11.22 Type 2 diabetes mellitus with diabetic chronic kidney disease (principal); N18.3 Chronic kidney disease, stage 3 (moderate); N25.81 Secondary hyperparathyroidism of renal origin; D63.1 Anemia in chronic kidney disease

== ENCOUNTER → 2016-11-05 | Outpatient (REF) | payer MEDICARE, MEDICAID | LOC: M SFHCPLAZ 11:42 | PROVIDERS: ATTEND Internal Medicine Infectious Disease | DX: L03.119 Cellulitis of unspecified part of limb (principal); Z53.8 Procedure and treatment not carried out for other reasons ==

== ENCOUNTER → 2016-11-06 | Outpatient (CLI) | payer MEDICARE, MEDICAID ==
--- NOTE | 2016-11-06 11:52 | REP ---
Clinical: Chronic medical renal disease. Technique: Real time king scale ultrasound examination using curved array transducer. Findings: The kidneys are normal in reniform shape demonstrating mild increased parenchymal echogenicity and subtle cortical lobulation suggesting chronic medical renal disease. There is no evidence for hydronephrosis, nephrolithiasis, or renal mass lesion. Right kidney measures 10.5 x 5.0 x 5.4 cm and includes 3 cm medial parapelvic cyst. Left kidney measures 9.9 x 5.9 x 4.8 cm. Impression: Chronic medical renal disease and 3 cm right parapelvic cyst. Signed by Alan Salinas MD 11/06/2016 11:44 A
== END ==
LOC: M RAD 11:03
PROVIDERS: ATTEND Internal Medicine Nephrology
DX: N18.3 Chronic kidney disease, stage 3 (moderate) (principal); E11.9 Type 2 diabetes mellitus without complications; I12.9 Hypertensive chronic kidney disease with stage 1 through stage 4 chronic kidney disease, or unspecified chronic kidney disease

== ENCOUNTER → 2016-11-09 | Outpatient (CLI) | payer MEDICARE, MEDICAID ==
[~2016-11-09] MED LIST changes: +COGE1INJ PO; +ZYPR10TA PO; +ZYPR1INJ IM; +ZYPR20TA3 PO
== END ==
LOC: M WUC 08:51
PROVIDERS: ATTEND Internal Medicine Nephrology
DX: N18.3 Chronic kidney disease, stage 3 (moderate) (principal); E87.0 Hyperosmolality and hypernatremia; F31.9 Bipolar disorder, unspecified

== ENCOUNTER 2016-11-10 15:47 | Emergency (ER) | payer MEDICARE, MEDICAID ==
[~2016-11-10] VITALS: Ht 170.2 cm; Wt 74.8 kg
[~2016-11-10 15:47] MED LIST changes: -COGE1INJ PO; -COLA100C PO; +COLA100C3 PO; -ZYPR10TA PO; -ZYPR1INJ IM; -ZYPR20TA3 PO
[2016-11-10 16:04] VITALS: BP 123/75
[2016-11-10] MEDS ORDERED: LITH300C PO (16:21)
[2016-11-10] MEDS ORDERED: ZYPR10TA PO (16:21)
[2016-11-10] MEDS ORDERED: COUM7.5T PO (16:21)
[2016-11-10] MEDS ORDERED: COGE1INJ PO (16:21)
[2016-11-10] MEDS ORDERED: ZYPR20TA3 PO (16:21)
[2016-11-10] MEDS ORDERED: ZYPR1INJ IM (16:21)
--- NOTE | 2016-11-10 16:35 | REP ---
Clinical: Trauma. Comparison: 05/23/2016. Findings: Age-related atrophy and microvascular ischemic changes are appreciated. The ventricles and sulci are symmetric. Tai-white differentiation is maintained. There is no evidence for acute intracranial hemorrhage, mass/mass effect, pathology or infarction. No extra-axial fluid collection. Calvarium is intact. Paranasal sinuses and mastoid air cells are clear. Impression: Age related atrophy and microvascular ischemic changes. No acute intracranial hemorrhage, infarction, or mass/mass effect. Signed by Alan Salinas MD 11/10/2016 04:26 P
[2016-11-10] MEDS ORDERED: POLYSPORIN OPHTH OINT 3.5 GM As Ordered ONE (16:41)
--- NOTE | 2016-11-10 16:49 | REP ---
Clinical: Trauma. Fall. Technique: AP and lateral views of the left knee. Findings: Age-related degenerative changes are appreciated. No acute fracture dislocation. Anterior swelling. No obvious effusion. Impression: Anterior swelling. No acute fracture or dislocation. Signed by Alan Salinas MD 11/10/2016 04:41 P
== END 2016-11-10 16:48 | disposition home or self-care (01) ==
LOC: EDBD 15:47 → M ED 16:12
DX: S09.90XA Unspecified injury of head, initial encounter (principal); W18.30XA Fall on same level, unspecified, initial encounter; Y92.099 Unspecified place in other non-institutional residence as the place of occurrence of the external cause; Y93.89 Activity, other specified; Y99.9 Unspecified external cause status; E11.9 Type 2 diabetes mellitus without complications; D64.9 Anemia, unspecified; F25.0 Schizoaffective disorder, bipolar type; F89 Unspecified disorder of psychological development; Z79.01 Long term (current) use of anticoagulants; Z79.899 Other long term (current) drug therapy; Z88.6 Allergy status to analgesic agent

== ENCOUNTER → 2017-01-16 | Outpatient (CLI) | payer MEDICARE, MEDICAID ==
[~2017-01-16] MED LIST changes: +COGE1INJ PO; +ZYPR10TA PO; +ZYPR1INJ IM; +ZYPR20TA3 PO
[2017-01-16 13:38] LABS: PROLACTIN 38.7 NG/ML (2.1-17.7)
== END ==
LOC: M WUC 08:38
PROVIDERS: ATTEND Anesthesiology Pain Medicine
DX: Z51.81 Encounter for therapeutic drug level monitoring (principal); Z79.899 Other long term (current) drug therapy; R79.89 Other specified abnormal findings of blood chemistry

== ENCOUNTER → 2017-01-16 | Outpatient (CLI) | payer MEDICARE, MEDICAID | LOC: M WUC 08:43 | PROVIDERS: ATTEND Internal Medicine Infectious Disease | DX: R79.89 Other specified abnormal findings of blood chemistry (principal) ==

== ENCOUNTER → 2017-03-06 | Outpatient (CLI) | payer MEDICARE, MEDICAID ==
[~2017-03-06] MED LIST changes: -ABIL15TA2 PO; +ABIL1TAB12 PO; -ACET-654 PO; +ACET1TAB17 PO; +BENZ-52 PO; +CLIN150C14 PO; -CLIN1CAP5 PO; -COLA100C3 PO; +COLA100C5 PO; +EUCECRE3 TOP; -HYDR25T PO; +LAC-12LO3 TOP; +LAMI1TAB9 PO; -LAMI200T3 PO; +LEVA1TAB PO; -LEVA250T PO; +LORA1TAB12 PO; +LORA2TA PO; -NYST100024 TOP; +NYST1POW9 TOP; +PROM25TA PO
[2017-03-06 13:06] LABS: BASO % 0.5 % (0.0-1.0); EOS # 0.2 K/mm3 (0.0-0.50); EOS % 3.9 % (0.0-3.0); LARGE UNSTAINED CELL # 0.1 K/mm3 (0.0-0.4); LARGE UNSTAINED CELL % 2.5 % (0.0-4.0); LYMPH # 1.1 K/mm3 (1.5-4.5); LYMPH % 22.7 % (24.0-44.0); MEAN CORPUSCULAR HEMOGLOBIN 32.4 pg (27.0-33.0); MEAN CORPUSCULAR HGB CONC 34.9 g/dl (32.0-36.5); MEAN CORPUSCULAR VOLUME 92.9 fl (80.0-96.0); MONO # 0.4 K/mm3 (0.0-0.8); MONO % 7.8 % (0.0-5.0); NEUTROPHILS # 2.8 K/mm3 (1.8-7.7); NEUTROPHILS % 62.6 % (36.0-66.0); PLATELET COUNT, AUTOMATED 210 k/mm3 (150-450); RED CELL DISTRIBUTION WIDTH 13.8 % (11.5-14.5); WHITE BLOOD COUNT 4.5 K/mm3 (4.0-10.0)
[2017-03-06 13:14] LABS: ALBUMIN 3.7 GM/DL (3.2-5.2); ALBUMIN/GLOBULIN RATIO 1.28 (1.00-1.93); BILIRUBIN,TOTAL 0.4 MG/DL (0.2-1.0); CALCIUM LEVEL 9.8 MG/DL (8.8-10.2); CREATININE FOR GFR 1.95 MG/DL (0.70-1.30); GLOMERULAR FILTRATION RATE 37.5 (>49); POTASSIUM SERUM 4.4 MEQ/L (3.5-5.1); TOTAL PROTEIN 6.6 GM/DL (6.4-8.2)
[2017-03-07 14:15] LABS: PSA TOTAL 1.2 ng/mL (0.0-4.0)
== END ==
LOC: M WUC 08:42
PROVIDERS: ATTEND Nurse Practitioner Family
DX: E11.9 Type 2 diabetes mellitus without complications (principal); N18.3 Chronic kidney disease, stage 3 (moderate); E78.4 Other hyperlipidemia; K21.9 Gastro-esophageal reflux disease without esophagitis; Z12.5 Encounter for screening for malignant neoplasm of prostate

== ENCOUNTER → 2017-04-11 | Outpatient (REF) | payer MEDICARE, MEDICAID ==
[2017-04-11 12:18] LABS: BASO % 0.7 % (0.0-1.0); EOS # 0.2 K/mm3 (0.0-0.50); EOS % 5.4 % (0.0-3.0); LARGE UNSTAINED CELL # 0.1 K/mm3 (0.0-0.4); LARGE UNSTAINED CELL % 2.9 % (0.0-4.0); LYMPH # 1.1 K/mm3 (1.5-4.5); LYMPH % 27.5 % (24.0-44.0); MEAN CORPUSCULAR HEMOGLOBIN 31.3 pg (27.0-33.0); MEAN CORPUSCULAR HGB CONC 33.5 g/dl (32.0-36.5); MEAN CORPUSCULAR VOLUME 93.5 fl (80.0-96.0); MONO # 0.3 K/mm3 (0.0-0.8); MONO % 7.8 % (0.0-5.0); NEUTROPHILS # 2.1 K/mm3 (1.8-7.7); NEUTROPHILS % 55.7 % (36.0-66.0); PLATELET COUNT, AUTOMATED 202 k/mm3 (150-450); RED CELL DISTRIBUTION WIDTH 13.4 % (11.5-14.5); WHITE BLOOD COUNT 3.8 K/mm3 (4.0-10.0)
[2017-04-11 12:48] LABS: ANION GAP 7 MEQ/L (8-16); BLOOD UREA NITROGEN 39 MG/DL (7-18); CALCIUM LEVEL 9.4 MG/DL (8.8-10.2); CARBON DIOXIDE LEVEL 28 MEQ/L (21-32); CHLORIDE LEVEL 109 MEQ/L (98-107); CREATININE FOR GFR 2.32 MG/DL (0.70-1.30); GLOMERULAR FILTRATION RATE 30.6 (>49); GLUCOSE, FASTING 125 MG/DL (80-110); POTASSIUM SERUM 4.8 MEQ/L (3.5-5.1); SODIUM LEVEL 144 MEQ/L (136-145)
== END ==
LOC: M SFHCPLAZ 09:11
PROVIDERS: ATTEND Internal Medicine Infectious Disease
DX: L03.119 Cellulitis of unspecified part of limb (principal)
CPT/HCPCS: 36415; 80048; 85025; 86140; G0463

== ENCOUNTER → 2017-05-09 | Outpatient (CLI) | payer MEDICARE, MEDICAID ==
--- NOTE | 2017-05-09 18:25 | REP ---
Left hand series: Four views. History: Pain in the left hand. Findings: There is moderate to marked dorsal soft tissue swelling over the metacarpals. There is old post-traumatic deformity along the diaphysis of the third metacarpal. No acute fracture is seen. No opaque foreign body is seen. Impression: Old 3rd metacarpal fracture. Diffuse soft tissue swelling. No acute fracture seen. Signed by Fuad Adorno MD 05/10/2017 08:07 A
== END ==
LOC: M WUC 13:26
PROVIDERS: ATTEND Physician Assistant
DX: M25.542 Pain in joints of left hand (principal)

== ENCOUNTER 2017-05-29 10:23 | Day surgery (SDC) | payer MEDICARE, MEDICAID ==
[~2017-05-29] VITALS: Ht 167.6 cm; Wt 72.6 kg
[~2017-05-29 10:23] MED LIST changes: +ACETAMINOPHEN 325 MG TAB PO PRN; +BSS with VANC/TOB/EPI for EYE CASES IR ONE; +CYCLOPENTOLATE 2% OPHTH SOLN 2ML BTL OS ONE; -EUCECRE3 TOP; -LAC-12LO3 TOP; +LIDOCAINE 3.5 % 1ML OPHTH TOPICAL GEL OU ONE; -LORA1TAB12 PO; -LORA2TA PO; +MIDAZOLAM INJ 2 MG/2 ML VIAL (J2250) As Ordered ONE; +OFLOXACIN 0.3 % (OCUFLOX) OPTH SOL 5ML OS ONE; +PHENYLEPHRINE 2.5% OPHTH SOL 2ML OS ONE; -PROM25TA PO; +PROPARACAINE 0.5% OPHTH SOL 15ML OS PRN; +TROPICAMIDE 1% OPHTH SOLN 2ML OS ONE; +fentaNYL 100 MCG/2 ML INJECTION (J3010) As Ordered ONE
[2017-05-29] MEDS ORDERED: LR 500 ML IV ONE (10:30)
[2017-05-29] MEDS ORDERED: HEALON DUET (HEALON 10MG/ML 0.55ML & HEALON ENDOCOAT 30MG/ML 0.85ML) As Ordered ONE (11:10)
[2017-05-29] MEDS ORDERED: MOXIFLOXACIN IN BSS 0.25MG/0.25ML INTRACAMERAL INJ (OR EYE ONLY)(J2280) As Ordered ONE (11:10)
[2017-05-29] MEDS ORDERED: POVIDONE-IODINE 5% OPHTH PREP SOL 30ML As Ordered ONE (11:10)
[2017-05-29] MEDS ORDERED: TRIAMCINOLONE PRES FR 40 MG/ML 1ML(TRIESENCE)(OR EYE ONLY)(J3300 PER 1MG) As Ordered ONE (11:10)
[2017-05-29] MEDS ORDERED: LIDOCAINE 1% SDV 5 ML VIAL As Ordered ONE (11:10)
[2017-05-29] MEDS ORDERED: KETOROLAC 0.5% OPHTH SOLN OS ONE (12:45)
[2017-05-29] MEDS ORDERED: AcetaZOLAMIDE 500 MG ER CAP PO ONE (12:45)
[2017-05-29] MEDS ORDERED: TRIMETHOBENZAMIDE 300 MG CAP PO PRN (12:45)
[2017-05-29] MEDS ORDERED: LR 1,000 ML IV SCH (12:45)
[2017-05-29] MEDS ORDERED: ONDANSETRON 4MG/2ML VIAL (J2405) IV PRN (12:45)
[2017-05-29 13:00] VITALS: BP 123/84
--- NOTE | 2017-05-30 10:13 | RO ---
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 PROCEDURE: Phacoemulsification with intraocular lens implantation along with placement of 7 mm Malyugin ring to dilate the pupil. SURGEON: Mikie Otero MD OFFSHORE DIVER: None. ANESTHESIA: COMPLICATIONS: None. PROCEDURE IN DETAIL: The patient was brought to the operating room and laid in supine position. The left eye was prepped and draped in a sterile fashion for ophthalmic surgery and a lid speculum was placed. A side port incision was then made and EndoCoat was injected into the anterior chamber. A temporal clear cornea incision was then made with a 2.5 mm keratome and capsulorrhexis was done followed by hydrodissection. Prior to this, the Malyugin ring 7 mm was then inserted into the anterior chamber and with the help of the hook pupil was dilated. Following capsulorrhexis and hydrodissection, phacoemulsification was done in a divide and conquer method within the capsular bag followed by aspiration of the cortical material. Healon was then placed in the capsular bag followed by placement of the intraocular lens. Excess viscoelastic was then aspirated prior to that and Malyugin ring was removed with the help of the inserted. The wound was hydrated and subconjunctival injection of triamcinolone and intracameral injection of moxifloxacin were given. The lid speculum removed, and patient returned to the recovery room in stable condition.
== END 2017-05-29 13:15 | disposition home or self-care (01) ==
LOC: M SDC 10:23
PROVIDERS: ATTEND Ophthalmology
DX: H25.9 Unspecified age-related cataract (principal); H57.03 Miosis; E11.9 Type 2 diabetes mellitus without complications; I10 Essential (primary) hypertension; K21.9 Gastro-esophageal reflux disease without esophagitis; F32.9 Major depressive disorder, single episode, unspecified; F41.9 Anxiety disorder, unspecified; F17.210 Nicotine dependence, cigarettes, uncomplicated; N18.3 Chronic kidney disease, stage 3 (moderate); Z79.899 Other long term (current) drug therapy
CPT/HCPCS: 66982; J2250; J2280; J3010; J3300; V2632

== ENCOUNTER 2017-06-01 22:56 | Emergency (ER) | payer MEDICARE, MEDICAID ==
[~2017-06-01] VITALS: Ht 167.6 cm; Wt 79.5 kg
[~2017-06-01 22:56] MED LIST changes: -ACETAMINOPHEN 325 MG TAB PO PRN; -BSS with VANC/TOB/EPI for EYE CASES IR ONE; -CYCLOPENTOLATE 2% OPHTH SOLN 2ML BTL OS ONE; -LIDOCAINE 3.5 % 1ML OPHTH TOPICAL GEL OU ONE; -MIDAZOLAM INJ 2 MG/2 ML VIAL (J2250) As Ordered ONE; -OFLOXACIN 0.3 % (OCUFLOX) OPTH SOL 5ML OS ONE; -PHENYLEPHRINE 2.5% OPHTH SOL 2ML OS ONE; -PROPARACAINE 0.5% OPHTH SOL 15ML OS PRN; -TROPICAMIDE 1% OPHTH SOLN 2ML OS ONE; -fentaNYL 100 MCG/2 ML INJECTION (J3010) As Ordered ONE
[2017-06-01] MEDS ORDERED: LACTULOSE 20 GM/30 ML SYRUP UD PO ONE (23:45)
[2017-06-01] MEDS ORDERED: PROM25TA PO (23:45)
[2017-06-01] MEDS ORDERED: ZYPR20TA PO (23:45)
[2017-06-01] MEDS ORDERED: LORA1TAB12 PO (23:45)
[2017-06-01] MEDS ORDERED: EUCECRE3 TOP (23:45)
[2017-06-01] MEDS ORDERED: LAC-12LO3 TOP (23:45)
[2017-06-01] MEDS ORDERED: LORA2TA PO (23:45)
[2017-06-01] MEDS ORDERED: COUM1TAB17 PO (23:45)
[2017-06-02 00:43] LABS: CALCIUM LEVEL 9.2 MG/DL (8.8-10.2); CREATININE FOR GFR 2.06 MG/DL (0.70-1.30); GLOMERULAR FILTRATION RATE 35.1 (>49); POTASSIUM SERUM 3.8 MEQ/L (3.5-5.1)
[2017-06-02 01:59] LABS: LITHIUM LEVEL 0.93 MEQ/L (0.60-1.20)
[2017-06-02 02:22] VITALS: BP 109/67
--- NOTE | 2017-06-02 11:30 | REP ---
Abdomen series: Three views. History: Pain. Comparison chest x-ray is from October 23, 2015. Findings: Supine AP chest x-ray shows no evidence of infiltrate. Heart is not enlarged. Supine and cross-table lateral views of the abdomen are presented. Bowel gas pattern is unremarkable. There is no evidence of free intraperitoneal air or significant air fluid level. There are degenerative disc changes in the thoracolumbar spine. Some osteoarthritic facet disease is seen in the lower lumbar spine as well. No mass, organomegaly, or pathologic calcification is seen. Impression: Unremarkable abdominal views. Signed by Fuad Adorno MD 06/02/2017 09:38 A
== END 2017-06-02 02:30 | disposition home or self-care (01) ==
LOC: M ED 22:56 → EDBD 22:56 → M ED 06-02 02:30
DX: K59.00 Constipation, unspecified (principal); F17.200 Nicotine dependence, unspecified, uncomplicated; Z79.01 Long term (current) use of anticoagulants; Z79.899 Other long term (current) drug therapy; Z88.6 Allergy status to analgesic agent

== ENCOUNTER 2017-06-11 07:31 | Emergency (ER) | payer MEDICARE, MEDICAID ==
[~2017-06-11] VITALS: Ht 167.6 cm; Wt 101.4 kg
[~2017-06-11 07:31] MED LIST changes: +EUCECRE3 TOP; +LAC-12LO3 TOP; +LORA1TAB12 PO; +LORA2TA PO; +PROM25TA PO
--- NOTE | 2017-06-11 08:24 | REP ---
CT brain without contrast: History: Patient on Coumadin. Trauma. Comparison study November 10 2016. Findings: Digital line person radiographs are unremarkable. Bone window settings demonstrate an intact bony calvarium. There is mild mucosal thickening in the sphenoid and posterior ethmoid sinuses. No intraorbital abnormality is seen. There is mild diffuse cerebral atrophy. There is no evidence of intracranial hemorrhage. No infarct, mass, extra-axial fluid collection or midline shift is seen. Mild vascular calcification is observed. Impression: No acute intracranial lesion. Mild vascular calcification and diffuse atrophy again seen. Signed by Fuad Adorno MD 06/11/2017 12:49 P
--- NOTE | 2017-06-11 08:25 | REP ---
CT study of the cervical spine without contrast: History: Trauma. Patient on Coumadin. Technique: Helical scanning is acquired and overlapping 2 mm high resolution axial images were generated and reviewed at bone and soft tissue window settings. Coronal and sagittal multiplanar re-formations images are generated. CT findings: There is no evidence of cervical spine element fracture. No skull base fracture is seen. Cervical vertebral body heights are preserved. Alignment is normal. Facet joints are normally aligned bilaterally at each cervical level on multiplanar re-formations images. There is no evidence of intraspinal or paraspinal hematoma. No extra vertebral abnormality is seen. There is some degenerative spondylosis change with degenerative disc disease at C 05/06 and C6-7 and C7-T1. There is osteoarthritis at the articulation between the dens and the anterior arch of C1. There is minimal osteoarthritic facet hypertrophy. Impression: Degenerative spondylosis changes, otherwise negative CT study of the cervical spine without contrast. No fracture seen. Signed by Fuad Adorno MD 06/11/2017 08:16 A
[2017-06-11 10:04] VITALS: BP 111/78
== END 2017-06-11 10:20 | disposition home or self-care (01) ==
LOC: M ED 07:31
DX: S60.229A Contusion of unspecified hand, initial encounter (principal); W19.XXXA Unspecified fall, initial encounter; Y92.099 Unspecified place in other non-institutional residence as the place of occurrence of the external cause; Y93.9 Activity, unspecified; Y99.9 Unspecified external cause status; M47.892 Other spondylosis, cervical region; E11.9 Type 2 diabetes mellitus without complications; I10 Essential (primary) hypertension; F81.9 Developmental disorder of scholastic skills, unspecified; Z87.01 Personal history of pneumonia (recurrent); Z86.718 Personal history of other venous thrombosis and embolism; F17.200 Nicotine dependence, unspecified, uncomplicated; Z79.01 Long term (current) use of anticoagulants; Z79.899 Other long term (current) drug therapy; Z88.6 Allergy status to analgesic agent

== ENCOUNTER → 2017-07-16 | Outpatient (CLI) | payer MEDICARE, MEDICAID ==
[2017-07-16 10:05] LABS: BASO % 0.6 % (0.0-1.0); EOS # 0.2 10^3/uL (0.0-0.50); EOS % 3.2 % (0.0-3.0); IMMATURE GRANULOCYTE % 0.2 % (0-0); LYMPH # 1.3 10^3/uL (1.5-4.5); LYMPH % 25.2 % (24.0-44.0); MEAN CORPUSCULAR HEMOGLOBIN 31.2 pg (27.0-33.0); MEAN CORPUSCULAR HGB CONC 33.3 g/dl (32.0-36.5); MEAN CORPUSCULAR VOLUME 93.7 fl (80.0-96.0); MONO # 0.5 10^3/uL (0.0-0.8); MONO % 10.5 % (0.0-5.0); NEUTROPHILS # 3.1 10^3/uL (1.8-7.7); NEUTROPHILS % 60.3 % (36.0-66.0); PLATELET COUNT, AUTOMATED 187 10^3/uL (150-450); RED CELL DISTRIBUTION WIDTH 13.9 % (11.5-14.5); WHITE BLOOD COUNT 5.1 10^3/uL (4.0-10.0)
[2017-07-16 10:29] LABS: CALCIUM LEVEL 10.1 MG/DL (8.8-10.2); CREATININE FOR GFR 1.87 MG/DL (0.70-1.30); GLOMERULAR FILTRATION RATE 39.3 (>49); POTASSIUM SERUM 4.5 MEQ/L (3.5-5.1)
== END ==
LOC: M WUC 08:14
PROVIDERS: ATTEND Nurse Practitioner Family
DX: N18.3 Chronic kidney disease, stage 3 (moderate) (principal)

== ENCOUNTER → 2017-08-07 | Outpatient (CLI) | payer MEDICARE, MEDICAID ==
[2017-08-07 10:22] LABS: THYROXINE (T4) 8.8 UG/DL (4.5-12.0)
[2017-08-07 11:53] LABS: PROLACTIN 30.3 NG/ML (2.1-17.7)
== END ==
LOC: M WUC 08:20
PROVIDERS: ATTEND Anesthesiology Pain Medicine
DX: Z51.81 Encounter for therapeutic drug level monitoring (principal); Z79.899 Other long term (current) drug therapy

== ENCOUNTER 2017-08-13 14:18 | Emergency (ER) | payer MEDICARE, MEDICAID | END 2017-08-13 16:57 | disposition home or self-care (01) | LOC: M ED 14:18 | DX: S00.93XA Contusion of unspecified part of head, initial encounter (principal); W01.10XA Fall on same level from slipping, tripping and stumbling with subsequent striking against unspecified object, initial encounter; Y92.099 Unspecified place in other non-institutional residence as the place of occurrence of the external cause; Y93.9 Activity, unspecified; E11.9 Type 2 diabetes mellitus without complications; R56.9 Unspecified convulsions; M50.80 Other cervical disc disorders, unspecified cervical region; Z79.02 Long term (current) use of antithrombotics/antiplatelets; Z79.899 Other long term (current) drug therapy; Z88.6 Allergy status to analgesic agent | CPT/HCPCS: 70450 ==

== ENCOUNTER 2017-10-16 07:59 | Day surgery (SDC) | payer MEDICARE, MEDICAID ==
[2017-10-16] MEDS: LIDOCAINE 1% SDV 5 ML VIAL As Ordered (07:05)
[~2017-10-16 07:59] MED LIST changes: -/HYDR10T PO; -/LAMO20TA PO; -/MOM400 PO; -ABIL15TA PO; -ABIL1TAB12 PO; -ACET1TAB17 PO; -ACET50TA PO; +ACETAMINOPHEN 325 MG TAB PO; -ALBU17IN2 INH; -ARTISOL10 OU; -ARTISOL2 OU; -ASTE137S; -ATIV2INJ2 IM; -ATOR1TAB19 PO; -AUGM500T34 PO; -AUGM875T27 PO; -AZEL0.055; -AZEL0.1S3; -BENZ-52 PO; -BENZ1TA PO; -BENZ1TAB PO; -CALC0.25 PO; -CARV3.12 PO; -CEFD1CAP8 PO; -CEPH500C PO; -CLIN150C14 PO; -CLON1TAB PO; -COGE1INJ PO; -COLA100C5 PO; -COUM1TAB17 PO; -COUM7.5T PO; -DEPA500T2 PO; -DIPH50VL IM; -DOCU100T PO; -DOXY100C PO; -DOXY10CA PO; -DOXY200C PO; -DOXY75CA3 PO; -ECON1CRE TOP; -EUCECRE3 TOP; -FLON0.05; -FLON0.054; -FLON1SPR; -FRUICHW PO; -HALD5INJ2 IM; -HYDR-3363 PO; -KETOPOW TOP; -KLON1TAB PO; -LAC-12LO3 TOP; -LAMI1TAB9 PO; -LATU80TA PO; -LEVA1TAB PO; -LIPI10TA PO; -LITH1TAB PO; -LITH300C PO; -LITH300T2 PO; -LOPR50TA PO; -LORA1TAB12 PO; -LORA2TA IM; -LORA2TA PO; +MIDAZOLAM INJ 2 MG/2 ML VIAL (J2250) As Ordered; -MUPI2OI TOP; -MYLASS PO; -NATURAL TEARS OU; -NYST10CR TOP; -NYST1POW9 TOP; -OLAN10TA2 PO; -OMEP40CA2 PO; -OXCA150T PO; +PHENYLEPHRINE HCL 10 % OPHTH. SOL 5ML OD; -PRIL20CA9 PO; -PRIL40CA PO; -PROM25TA PO; +PROPARACAINE 0.5% OPHTH SOL 15ML OD; -RISP4TAB33 PO; -ROCA0.25 PO; -SENN15UDC PO; -THERTAB30 PO; -TRIL150T PO; -TYLE325T5 PO; -VITMTA PO; -ZYPR10TA PO; -ZYPR15TA PO; -ZYPR1INJ IM; -ZYPR20TA PO; -ZYPR20TA3 PO; -[UNRECOGNIZED DRUG - CODE] IM; -[UNRECOGNIZED DRUG - CODE] TOP; -[UNRECOGNIZED DRUG - OTHER] TOP; +fentaNYL 100 MCG/2 ML INJECTION (J3010) As Ordered
[2017-10-16] MEDS ORDERED: AcetaZOLAMIDE 500 MG ER CAP PO (08:15)
[2017-10-16] MEDS ORDERED: TRIMETHOBENZAMIDE 300 MG CAP PO (08:15)
[2017-10-16] MEDS: MOXIFLOXACIN IN BSS 0.25MG/0.25ML INTRACAMERAL INJ (OR EYE ONLY)(J2280) As Ordered (08:29)
[2017-10-16] MEDS ORDERED: PHENYLEPHRINE 2.5% OPHTH SOL 2ML As Ordered (09:00)
[2017-10-16] MEDS ORDERED: TROPICAMIDE 1% OPHTH SOLN 2ML As Ordered (09:00)
[2017-10-16] MEDS ORDERED: CYCLOPENTOLATE 2% OPHTH SOLN 2ML BTL As Ordered (09:00)
[2017-10-16] MEDS ORDERED: OFLOXACIN 0.3 % (OCUFLOX) OPTH SOL 5ML As Ordered (09:00)
[2017-10-16] MEDS: OFLOXACIN 0.3 % (OCUFLOX) OPTH SOL 5ML OD (09:20)
[2017-10-16] MEDS: CYCLOPENTOLATE 2% OPHTH SOLN 2ML BTL OD (09:20)
[2017-10-16] MEDS: PHENYLEPHRINE 2.5% OPHTH SOL 2ML OD (09:20)
[2017-10-16] MEDS: LIDOCAINE 3.5 % 1ML OPHTH TOPICAL GEL OU (09:20)
[2017-10-16] MEDS: TROPICAMIDE 1% OPHTH SOLN 2ML OD (09:20)
[2017-10-16] MEDS: HEALON DUET (HEALON 10MG/ML 0.55ML & HEALON ENDOCOAT 30MG/ML 0.85ML) As Ordered (10:49)
[2017-10-16] MEDS: POVIDONE-IODINE 5% OPHTH PREP SOL 30ML As Ordered ×2 (10:49→10:50)
[2017-10-16] MEDS: BSS with VANC/TOB/EPI for EYE CASES IR (10:49)
[2017-10-16] MEDS: TRIAMCINOLONE PRES FR 40 MG/ML 1ML(TRIESENCE)(OR EYE ONLY)(J3300 PER 1MG) As Ordered (10:50)
== END 2017-10-16 11:31 | disposition home or self-care (01) ==
LOC: M SDC 07:59
DX: H26.9 Unspecified cataract (principal); I12.9 Hypertensive chronic kidney disease with stage 1 through stage 4 chronic kidney disease, or unspecified chronic kidney disease; E78.4 Other hyperlipidemia; I73.9 Peripheral vascular disease, unspecified; E11.22 Type 2 diabetes mellitus with diabetic chronic kidney disease; K21.9 Gastro-esophageal reflux disease without esophagitis; D64.9 Anemia, unspecified; R23.3 Spontaneous ecchymoses; M12.9 Arthropathy, unspecified; F41.9 Anxiety disorder, unspecified; F32.9 Major depressive disorder, single episode, unspecified; R51 Headache; F20.5 Residual schizophrenia; F70 Mild intellectual disabilities; R56.9 Unspecified convulsions; N18.3 Chronic kidney disease, stage 3 (moderate); Z88.6 Allergy status to analgesic agent; Z79.899 Other long term (current) drug therapy; Z79.02 Long term (current) use of antithrombotics/antiplatelets; Z86.718 Personal history of other venous thrombosis and embolism; Z72.0 Tobacco use
CPT/HCPCS: 66984

== ENCOUNTER → 2017-10-30 | Outpatient (REF) | payer MEDICARE, MEDICAID ==
[2017-10-30 18:01] LABS: FERRITIN 35 NG/ML (26-388); IRON (FE) 46 UG/DL (65-175); PERCENT SATURATION 14.2 % (19.7-50.0); TOTAL IRON BINDING CAPACITY 323 UG/DL (250-450); VITAMIN B12 LEVEL 902 PG/ML
[2017-10-30 18:02] LABS: FOLATE 18.9 NG/ML
== END ==
LOC: M LAB REF 17:22
DX: D64.9 Anemia, unspecified (principal)
CPT/HCPCS: 82746

== ENCOUNTER 2017-10-31 20:28 | Emergency (ER) | payer MEDICARE, MEDICAID ==
[2017-10-31] MEDS: NS 1,000 ML IV (21:15)
[2017-10-31] MEDS: MORPHINE 2 MG/ML 1ML SYRINGE (J2270) IV (21:20)
[2017-10-31 21:25] LABS: BASO % 0.4 % (0.0-1.0); EOS # 0.3 10^3/uL (0.0-0.50); EOS % 6.3 % (0.0-3.0); HEMOGLOBIN 9.7 g/dl (14.0-18.0); IMMATURE GRANULOCYTE % 0.4 % (0-3.0); LYMPH # 1.2 10^3/uL (1.5-4.5); LYMPH % 24.3 % (24.0-44.0); MEAN CORPUSCULAR HEMOGLOBIN 31.7 pg (27.0-33.0); MEAN CORPUSCULAR HGB CONC 32.3 g/dl (32.0-36.5); MONO # 0.5 10^3/uL (0.0-0.8); MONO % 10.8 % (0.0-5.0); NEUTROPHILS # 2.8 10^3/uL (1.8-7.7); NEUTROPHILS % 57.8 % (36.0-66.0); PLATELET COUNT, AUTOMATED 192 10^3/uL (150-450); RED BLOOD COUNT 3.06 10^6/uL (4.30-6.10); RED CELL DISTRIBUTION WIDTH 13.6 % (11.5-14.5); WHITE BLOOD COUNT 4.9 10^3/uL (4.0-10.0)
[2017-10-31 22:56] LABS: INR 2.26; PROTHROMBIN TIME 25.8 SECONDS (12.4-14.5)
[2017-10-31] MEDS ORDERED: ISOVUE-370 76% 100ML VIAL (Q9967) As Ordered (23:21)
[2017-10-31 23:43] LABS: ALBUMIN 3.1 GM/DL (3.2-5.2); ALBUMIN/GLOBULIN RATIO 1.11 (1.00-1.93); ALKALINE PHOSPHATASE 106 U/L (45-117); ALT/SGPT 34 U/L (12-78); ANION GAP 4 MEQ/L (8-16); AST/SGOT 16 U/L (7-37); BILIRUBIN,DIRECT < 0.1 MG/DL (0.0-0.2); BILIRUBIN,TOTAL 0.3 MG/DL (0.2-1.0); BLOOD UREA NITROGEN 28 MG/DL (7-18); CALCIUM LEVEL 8.9 MG/DL (8.8-10.2); CARBON DIOXIDE LEVEL 29 MEQ/L (21-32); CHLORIDE LEVEL 109 MEQ/L (98-107); CREATININE FOR GFR 1.91 MG/DL (0.70-1.30); GLOMERULAR FILTRATION RATE 38.3 (>49); GLUCOSE, FASTING 129 MG/DL (70-100); LIPASE 100 U/L (73-393); SODIUM LEVEL 142 MEQ/L (136-145); TOTAL PROTEIN 5.9 GM/DL (6.4-8.2)
[2017-11-01 00:12] LABS: KETONE, URINE AUTO RFX NEGATIVE (NEGATIVE); LEUKOCYTE ESTERASE UR AUTO RFX NEGATIVE (NEGATIVE); NITRITE, URINE AUTO RFX NEGATIVE (NEGATIVE); RBC, URINE AUTO RFX 0 /HPF (0-3); SPECIFIC GRAVITY UR AUTO RFX 1.002 (1.002-1.035); SQUAM EPITHELIAL CELL UR AURFX 0 /HPF (0-6); WBC, URINE AUTO RFX 0 /HPF (0-3)
== END 2017-11-01 01:26 | disposition home or self-care (01) ==
LOC: M ED 11-01 01:26
DX: S30.1XXA Contusion of abdominal wall, initial encounter (principal); S27.321A Contusion of lung, unilateral, initial encounter; W19.XXXA Unspecified fall, initial encounter; Y92.10 Unspecified residential institution as the place of occurrence of the external cause; J91.8 Pleural effusion in other conditions classified elsewhere; D64.9 Anemia, unspecified; E11.9 Type 2 diabetes mellitus without complications; I12.9 Hypertensive chronic kidney disease with stage 1 through stage 4 chronic kidney disease, or unspecified chronic kidney disease; N18.9 Chronic kidney disease, unspecified; E78.5 Hyperlipidemia, unspecified; R56.9 Unspecified convulsions; F25.9 Schizoaffective disorder, unspecified; K21.9 Gastro-esophageal reflux disease without esophagitis; H53.9 Unspecified visual disturbance; F79 Unspecified intellectual disabilities; F17.210 Nicotine dependence, cigarettes, uncomplicated; F17.290 Nicotine dependence, other tobacco product, uncomplicated; Z79.01 Long term (current) use of anticoagulants; Z79.899 Other long term (current) drug therapy; Z79.51 Long term (current) use of inhaled steroids; Z86.718 Personal history of other venous thrombosis and embolism; Z88.8 Allergy status to other drugs, medicaments and biological substances
CPT/HCPCS: J2270

== ENCOUNTER 2017-12-10 12:32 | Emergency (ER) | payer MEDICARE, MEDICAID ==
[2017-12-10] MEDS: EMLA CREAM 5GM (LIDOCAINE/PRILOCAINE) TOP (15:51)
== END 2017-12-10 16:53 | disposition home or self-care (01) ==
LOC: M ED 12:32
DX: S09.90XA Unspecified injury of head, initial encounter (principal); S01.01XA Laceration without foreign body of scalp, initial encounter; W01.10XA Fall on same level from slipping, tripping and stumbling with subsequent striking against unspecified object, initial encounter; Y92.099 Unspecified place in other non-institutional residence as the place of occurrence of the external cause; Y93.89 Activity, other specified; Y99.9 Unspecified external cause status; E11.9 Type 2 diabetes mellitus without complications; I10 Essential (primary) hypertension; R56.9 Unspecified convulsions; N28.9 Disorder of kidney and ureter, unspecified; F79 Unspecified intellectual disabilities; F17.200 Nicotine dependence, unspecified, uncomplicated; M47.812 Spondylosis without myelopathy or radiculopathy, cervical region; Z79.01 Long term (current) use of anticoagulants; Z79.899 Other long term (current) drug therapy; Z88.6 Allergy status to analgesic agent
CPT/HCPCS: 70450

== ENCOUNTER 2018-01-08 11:12 | Inpatient (IN) | payer MEDICARE, MEDICAID ==
[2018-01-08 13:16] LABS: BASO % 0.6 % (0.0-1.0); EOS # 0.2 10^3/uL (0.0-0.50); EOS % 3.7 % (0.0-3.0); HEMATOCRIT 33.6 % (42.0-52.0); HEMOGLOBIN 11.3 g/dl (13.5-17.5); IMMATURE GRANULOCYTE % 0.4 % (0-3.0); LYMPH # 0.9 10^3/uL (1.5-4.5); LYMPH % 16.7 % (24.0-44.0); MEAN CORPUSCULAR HGB CONC 33.6 g/dl (32.0-36.5); MEAN CORPUSCULAR VOLUME 95.2 fl (80.0-96.0); MONO # 0.5 10^3/uL (0.0-0.8); MONO % 9.8 % (0.0-5.0); NEUTROPHILS # 3.5 10^3/uL (1.8-7.7); NEUTROPHILS % 68.8 % (36.0-66.0); PLATELET COUNT, AUTOMATED 193 10^3/uL (150-450); RED BLOOD COUNT 3.53 10^6/uL (4.30-6.10); RED CELL DISTRIBUTION WIDTH 13.3 % (11.5-14.5); WHITE BLOOD COUNT 5.1 10^3/uL (4.0-10.0)
[2018-01-08 13:27] LABS: INR 2.18; PROTHROMBIN TIME 25.1 SECONDS (12.4-14.5)
[2018-01-08 13:35] LABS: AMMONIA 48 uMOL/L (<32)
[2018-01-08 13:40] LABS: ALBUMIN 3.9 GM/DL (3.2-5.2); ALBUMIN/GLOBULIN RATIO 1.26 (1.00-1.93); ALKALINE PHOSPHATASE 213 U/L (45-117); ALT/SGPT 31 U/L (12-78); ANION GAP 4 MEQ/L (8-16); AST/SGOT 16 U/L (7-37); BILIRUBIN,TOTAL 0.6 MG/DL (0.2-1.0); BLOOD UREA NITROGEN 45 MG/DL (7-18); CALCIUM LEVEL 10.6 MG/DL (8.8-10.2); CARBON DIOXIDE LEVEL 26 MEQ/L (21-32); CHLORIDE LEVEL 108 MEQ/L (98-107); CREATININE FOR GFR 2.55 MG/DL (0.70-1.30); GLOMERULAR FILTRATION RATE 27.5 (>49); GLUCOSE, FASTING 82 MG/DL (70-100); SODIUM LEVEL 138 MEQ/L (136-145)
[2018-01-08 13:47] LABS: LITHIUM LEVEL 2.22 MEQ/L (0.60-1.20); POTASSIUM SERUM 5.8 MEQ/L (3.5-5.1)
[2018-01-08] MEDS ORDERED: NS 1,000 ML IV (14:05)
[2018-01-08] MEDS: NS 1,000 ML IV ×3 (14:40→21:36)
[2018-01-08] MEDS: WARFARIN SOD 2.5 MG TAB PO (17:00)
[2018-01-08 18:24] LABS: PHOSPHORUS LEVEL 3.3 MG/DL (2.5-4.9)
[2018-01-08] MEDS: AZELASTINE 137MCG NASAL SPY 30 ML (ASTELIN) (21:00)
[2018-01-08] MEDS: FLUTICASONE PROP 0.05% NASAL SPRAY 16 GM (FLONASE) (21:00)
[2018-01-08] MEDS: SOD POLYSTYRENE SULFONATE SUSP 15 GM/60 ML UD PO (21:48)
[2018-01-08] MEDS: CARVedilol 3.125 MG TAB PO (21:52)
[2018-01-08] MEDS: lamoTRIgine 100MG TAB PO (21:53)
[2018-01-08] MEDS: MULTIVITAMINS/MINERALS THERAP 1 TAB PO (21:53)
[2018-01-08] MEDS: DOCUSATE SODIUM 100 MG CAP PO (21:53)
[2018-01-08] MEDS: LURASIDONE HCL 40 MG TAB (LATUDA) PO (23:45)
[2018-01-09] MEDS: NS 1,000 ML IV ×3 (05:26→21:57)
[2018-01-09 06:12] LABS: BASO % 0.2 % (0.0-1.0); EOS # 0.2 10^3/uL (0.0-0.50); EOS % 4.9 % (0.0-3.0); HEMATOCRIT 31.7 % (42.0-52.0); HEMOGLOBIN 10.2 g/dl (13.5-17.5); IMMATURE GRANULOCYTE % 0.5 % (0-3.0); LYMPH # 0.8 10^3/uL (1.5-4.5); LYMPH % 18.5 % (24.0-44.0); MEAN CORPUSCULAR HGB CONC 32.2 g/dl (32.0-36.5); MEAN CORPUSCULAR VOLUME 96.4 fl (80.0-96.0); MONO # 0.5 10^3/uL (0.0-0.8); MONO % 11.1 % (0.0-5.0); NEUTROPHILS # 2.6 10^3/uL (1.8-7.7); NEUTROPHILS % 64.8 % (36.0-66.0); PLATELET COUNT, AUTOMATED 178 10^3/uL (150-450); RED BLOOD COUNT 3.29 10^6/uL (4.30-6.10); RED CELL DISTRIBUTION WIDTH 13.6 % (11.5-14.5); WHITE BLOOD COUNT 4.1 10^3/uL (4.0-10.0)
[2018-01-09 06:22] LABS: INR 2.19; PROTHROMBIN TIME 25.1 SECONDS (12.4-14.5)
[2018-01-09 06:47] LABS: ALBUMIN 3.3 GM/DL (3.2-5.2); ALBUMIN/GLOBULIN RATIO 1.22 (1.00-1.93); ALKALINE PHOSPHATASE 208 U/L (45-117); ALT/SGPT 28 U/L (12-78); ANION GAP 3 MEQ/L (8-16); AST/SGOT 15 U/L (7-37); BILIRUBIN,TOTAL 0.4 MG/DL (0.2-1.0); BLOOD UREA NITROGEN 34 MG/DL (7-18); CALCIUM LEVEL 9.4 MG/DL (8.8-10.2); CARBON DIOXIDE LEVEL 27 MEQ/L (21-32); CHLORIDE LEVEL 114 MEQ/L (98-107); CREATININE FOR GFR 2.13 MG/DL (0.70-1.30); GLOMERULAR FILTRATION RATE 33.8 (>49); GLUCOSE, FASTING 141 MG/DL (70-100); POTASSIUM SERUM 4.8 MEQ/L (3.5-5.1); SODIUM LEVEL 144 MEQ/L (136-145)
[2018-01-09 06:57] LABS: LITHIUM LEVEL 1.61 MEQ/L (0.60-1.20)
[2018-01-09] MEDS ORDERED: OLANZapine 10 MG TAB PO (09:00)
[2018-01-09] MEDS: DOCUSATE SODIUM 100 MG CAP PO ×2 (10:32→21:58)
[2018-01-09] MEDS: OMEPRAZOLE 20 MG CAP PO (10:32)
[2018-01-09] MEDS: CARVedilol 3.125 MG TAB PO ×2 (10:33→21:58)
[2018-01-09] MEDS: FERROUS GLUCONATE 324 MG TAB PO (10:34)
[2018-01-09] MEDS: ATORVASTATIN 10 MG TAB PO (10:34)
[2018-01-09] MEDS: lamoTRIgine 100MG TAB PO ×2 (10:34→21:59)
[2018-01-09] MEDS: OLANZapine 10 MG TAB PO (10:35)
[2018-01-09] MEDS: AZELASTINE 137MCG NASAL SPY 30 ML (ASTELIN) ×2 (10:35→22:00)
[2018-01-09] MEDS ORDERED: GLUCOSE 4 GM CHEW TABLET PO (14:45)
[2018-01-09] MEDS ORDERED: GLUCAGON FOR INJ 1 MG VIAL (J1610) SC (14:45)
[2018-01-09] MEDS ORDERED: DEXTROSE 50% 50 ML SYRINGE IV (14:45)
[2018-01-09] MEDS: WARFARIN SOD 5 MG TAB PO (18:15)
[2018-01-09 18:16] LABS: BEDSIDE GLUCOSE 204 MG/DL (80-115)
[2018-01-09] MEDS: HumaLOG INSULIN (NovoLOG) PER UNIT SC ×2 (18:21→21:00)
[2018-01-09 21:41] LABS: BEDSIDE GLUCOSE 103 MG/DL (80-115)
[2018-01-09] MEDS: MULTIVITAMINS/MINERALS THERAP 1 TAB PO (21:59)
[2018-01-09] MEDS: LURASIDONE HCL 40 MG TAB (LATUDA) PO (21:59)
[2018-01-09] MEDS: FLUTICASONE PROP 0.05% NASAL SPRAY 16 GM (FLONASE) (22:00)
[2018-01-10 05:52] LABS: BASO % 0.5 % (0.0-1.0); EOS # 0.2 10^3/uL (0.0-0.50); EOS % 3.4 % (0.0-3.0); HEMATOCRIT 33.2 % (42.0-52.0); HEMOGLOBIN 10.4 g/dl (13.5-17.5); IMMATURE GRANULOCYTE % 0.5 % (0-3.0); LYMPH # 0.9 10^3/uL (1.5-4.5); MEAN CORPUSCULAR HEMOGLOBIN 31.1 pg (27.0-33.0); MEAN CORPUSCULAR HGB CONC 31.3 g/dl (32.0-36.5); MEAN CORPUSCULAR VOLUME 99.4 fl (80.0-96.0); MONO # 0.5 10^3/uL (0.0-0.8); MONO % 8.3 % (0.0-5.0); NEUTROPHILS # 4.1 10^3/uL (1.8-7.7); NEUTROPHILS % 72.3 % (36.0-66.0); PLATELET COUNT, AUTOMATED 193 10^3/uL (150-450); RED BLOOD COUNT 3.34 10^6/uL (4.30-6.10); RED CELL DISTRIBUTION WIDTH 13.7 % (11.5-14.5); WHITE BLOOD COUNT 5.7 10^3/uL (4.0-10.0)
[2018-01-10 06:03] LABS: INR 1.48; PROTHROMBIN TIME 18.3 SECONDS (12.4-14.5)
[2018-01-10] MEDS: NS 1,000 ML IV (06:25)
[2018-01-10 07:37] LABS: ALBUMIN 3.2 GM/DL (3.2-5.2); ALBUMIN/GLOBULIN RATIO 0.97 (1.00-1.93); ALKALINE PHOSPHATASE 212 U/L (45-117); ALT/SGPT 29 U/L (12-78); ANION GAP 2 MEQ/L (8-16); AST/SGOT 13 U/L (7-37); BILIRUBIN,TOTAL 0.5 MG/DL (0.2-1.0); BLOOD UREA NITROGEN 26 MG/DL (7-18); CALCIUM LEVEL 9.8 MG/DL (8.8-10.2); CARBON DIOXIDE LEVEL 26 MEQ/L (21-32); CHLORIDE LEVEL 120 MEQ/L (98-107); CREATININE FOR GFR 1.95 MG/DL (0.70-1.30); GLOMERULAR FILTRATION RATE 37.4 (>49); GLUCOSE, FASTING 136 MG/DL (70-100); POTASSIUM SERUM 4.7 MEQ/L (3.5-5.1); SODIUM LEVEL 148 MEQ/L (136-145); TOTAL PROTEIN 6.5 GM/DL (6.4-8.2)
[2018-01-10 09:31] LABS: LITHIUM LEVEL 1.07 MEQ/L (0.60-1.20)
[2018-01-10 09:46] LABS: LACTIC ACID SEPSIS PROTOCOL 0.8 MMOL/L (0.4-2.0)
[2018-01-10] MEDS: OLANZapine 10 MG TAB PO (10:23)
[2018-01-10] MEDS: DOCUSATE SODIUM 100 MG CAP PO ×2 (10:23→21:01)
[2018-01-10] MEDS: ATORVASTATIN 10 MG TAB PO (10:23)
[2018-01-10] MEDS: FERROUS GLUCONATE 324 MG TAB PO (10:23)
[2018-01-10] MEDS: lamoTRIgine 100MG TAB PO ×2 (10:23→21:01)
[2018-01-10] MEDS: OMEPRAZOLE 20 MG CAP PO (10:23)
[2018-01-10] MEDS: HumaLOG INSULIN (NovoLOG) PER UNIT SC ×4 (10:23→21:00)
[2018-01-10] MEDS: AZELASTINE 137MCG NASAL SPY 30 ML (ASTELIN) ×2 (10:24→21:03)
[2018-01-10] MEDS: CARVedilol 3.125 MG TAB PO ×2 (10:24→21:02)
[2018-01-10 12:06] LABS: BEDSIDE GLUCOSE 152 MG/DL (80-115)
[2018-01-10] MEDS: WARFARIN SOD 2.5 MG TAB PO (17:39)
[2018-01-10] MEDS: MULTIVITAMINS/MINERALS THERAP 1 TAB PO (21:01)
[2018-01-10 21:02] LABS: BEDSIDE GLUCOSE 128 MG/DL (80-115)
[2018-01-10] MEDS: LURASIDONE HCL 40 MG TAB (LATUDA) PO (21:02)
[2018-01-10] MEDS: FLUTICASONE PROP 0.05% NASAL SPRAY 16 GM (FLONASE) (21:03)
[2018-01-11 05:33] LABS: BASO % 0.3 % (0.0-1.0); EOS # 0.2 10^3/uL (0.0-0.50); EOS % 2.6 % (0.0-3.0); HEMATOCRIT 34.1 % (42.0-52.0); HEMOGLOBIN 11.1 g/dl (13.5-17.5); IMMATURE GRANULOCYTE % 0.4 % (0-3.0); MEAN CORPUSCULAR HEMOGLOBIN 31.6 pg (27.0-33.0); MEAN CORPUSCULAR HGB CONC 32.6 g/dl (32.0-36.5); MEAN CORPUSCULAR VOLUME 97.2 fl (80.0-96.0); MONO # 0.6 10^3/uL (0.0-0.8); MONO % 8.7 % (0.0-5.0); NEUTROPHILS # 5.4 10^3/uL (1.8-7.7); PLATELET COUNT, AUTOMATED 209 10^3/uL (150-450); RED BLOOD COUNT 3.51 10^6/uL (4.30-6.10); RED CELL DISTRIBUTION WIDTH 13.9 % (11.5-14.5); WHITE BLOOD COUNT 7.3 10^3/uL (4.0-10.0)
[2018-01-11 05:50] LABS: INR 1.37; PROTHROMBIN TIME 17.2 SECONDS (12.4-14.5)
[2018-01-11 05:53] LABS: ALBUMIN 3.6 GM/DL (3.2-5.2); ALBUMIN/GLOBULIN RATIO 1.09 (1.00-1.93); ALKALINE PHOSPHATASE 239 U/L (45-117); ALT/SGPT 30 U/L (12-78); ANION GAP 3 MEQ/L (8-16); AST/SGOT 10 U/L (7-37); BILIRUBIN,TOTAL 0.7 MG/DL (0.2-1.0); BLOOD UREA NITROGEN 25 MG/DL (7-18); CALCIUM LEVEL 10.6 MG/DL (8.8-10.2); CARBON DIOXIDE LEVEL 30 MEQ/L (21-32); CHLORIDE LEVEL 120 MEQ/L (98-107); CREATININE FOR GFR 2.03 MG/DL (0.70-1.30); GLOMERULAR FILTRATION RATE 35.7 (>49); GLUCOSE, FASTING 150 MG/DL (70-100); POTASSIUM SERUM 4.8 MEQ/L (3.5-5.1); SODIUM LEVEL 153 MEQ/L (136-145); TOTAL PROTEIN 6.9 GM/DL (6.4-8.2)
[2018-01-11] MEDS: DOCUSATE SODIUM 100 MG CAP PO ×2 (08:04→20:54)
[2018-01-11] MEDS: lamoTRIgine 100MG TAB PO ×2 (08:04→20:55)
[2018-01-11] MEDS: OLANZapine 10 MG TAB PO (08:04)
[2018-01-11] MEDS: ATORVASTATIN 10 MG TAB PO (08:04)
[2018-01-11] MEDS: CARVedilol 3.125 MG TAB PO ×2 (08:05→10:57)
[2018-01-11] MEDS: OMEPRAZOLE 20 MG CAP PO (08:05)
[2018-01-11] MEDS: FERROUS GLUCONATE 324 MG TAB PO (08:05)
[2018-01-11] MEDS: AZELASTINE 137MCG NASAL SPY 30 ML (ASTELIN) ×2 (08:06→21:01)
[2018-01-11] MEDS: D5W 1,000 ML IV ×2 (08:06→12:03)
[2018-01-11] MEDS: HumaLOG INSULIN (NovoLOG) PER UNIT SC ×4 (08:06→20:46)
[2018-01-11 08:14] LABS: LITHIUM LEVEL 0.92 MEQ/L (0.60-1.20)
[2018-01-11 11:32] LABS: BEDSIDE GLUCOSE 124 MG/DL (80-115)
[2018-01-11] MEDS: ERYTHROMYCIN OPHTH OINT OU ×3 (12:07→21:01)
[2018-01-11 12:59] LABS: ANION GAP 4 MEQ/L (8-16); BLOOD UREA NITROGEN 24 MG/DL (7-18); CALCIUM LEVEL 10.1 MG/DL (8.8-10.2); CARBON DIOXIDE LEVEL 28 MEQ/L (21-32); CHLORIDE LEVEL 113 MEQ/L (98-107); CREATININE FOR GFR 1.99 MG/DL (0.70-1.30); GLOMERULAR FILTRATION RATE 36.6 (>49); GLUCOSE, FASTING 118 MG/DL (70-100); POTASSIUM SERUM 4.6 MEQ/L (3.5-5.1); SODIUM LEVEL 145 MEQ/L (136-145)
[2018-01-11 16:46] LABS: BEDSIDE GLUCOSE 149 MG/DL (80-115)
[2018-01-11] MEDS: WARFARIN SOD 2.5 MG TAB PO (16:55)
[2018-01-11 20:43] LABS: BEDSIDE GLUCOSE 185 MG/DL (80-115)
[2018-01-11] MEDS: MULTIVITAMINS/MINERALS THERAP 1 TAB PO (20:54)
[2018-01-11] MEDS: CARVedilol 6.25 MG TAB PO (20:55)
[2018-01-11] MEDS: LITHIUM CARBONATE 150 MG CAP PO (20:55)
[2018-01-11] MEDS: LURASIDONE HCL 40 MG TAB (LATUDA) PO (20:58)
[2018-01-11] MEDS: FLUTICASONE PROP 0.05% NASAL SPRAY 16 GM (FLONASE) (21:01)
[2018-01-12 06:50] LABS: BASO % 0.6 % (0.0-1.0); EOS # 0.2 10^3/uL (0.0-0.50); EOS % 2.9 % (0.0-3.0); HEMATOCRIT 33.7 % (42.0-52.0); IMMATURE GRANULOCYTE % 0.3 % (0-3.0); LYMPH # 1.2 10^3/uL (1.5-4.5); LYMPH % 17.2 % (24.0-44.0); MEAN CORPUSCULAR HEMOGLOBIN 31.3 pg (27.0-33.0); MEAN CORPUSCULAR HGB CONC 32.6 g/dl (32.0-36.5); MONO # 0.7 10^3/uL (0.0-0.8); MONO % 9.5 % (0.0-5.0); NEUTROPHILS % 69.5 % (36.0-66.0); PLATELET COUNT, AUTOMATED 198 10^3/uL (150-450); RED BLOOD COUNT 3.51 10^6/uL (4.30-6.10); RED CELL DISTRIBUTION WIDTH 13.9 % (11.5-14.5); WHITE BLOOD COUNT 7.2 10^3/uL (4.0-10.0)
[2018-01-12 07:04] LABS: INR 1.34; PROTHROMBIN TIME 16.9 SECONDS (12.4-14.5)
[2018-01-12 07:10] LABS: ALBUMIN 3.4 GM/DL (3.2-5.2); ALBUMIN/GLOBULIN RATIO 1.17 (1.00-1.93); ALKALINE PHOSPHATASE 205 U/L (45-117); ALT/SGPT 28 U/L (12-78); ANION GAP 3 MEQ/L (8-16); AST/SGOT 15 U/L (7-37); BILIRUBIN,TOTAL 0.6 MG/DL (0.2-1.0); BLOOD UREA NITROGEN 28 MG/DL (7-18); CALCIUM LEVEL 10.3 MG/DL (8.8-10.2); CARBON DIOXIDE LEVEL 29 MEQ/L (21-32); CHLORIDE LEVEL 112 MEQ/L (98-107); CREATININE FOR GFR 2.13 MG/DL (0.70-1.30); GLOMERULAR FILTRATION RATE 33.8 (>49); GLUCOSE, FASTING 130 MG/DL (70-100); POTASSIUM SERUM 4.5 MEQ/L (3.5-5.1); SODIUM LEVEL 144 MEQ/L (136-145); TOTAL PROTEIN 6.3 GM/DL (6.4-8.2)
[2018-01-12 07:28] LABS: LITHIUM LEVEL 0.77 MEQ/L (0.60-1.20)
[2018-01-12] MEDS: HumaLOG INSULIN (NovoLOG) PER UNIT SC (07:30)
[2018-01-12] MEDS: CARVedilol 12.5 MG TAB PO (09:00)
[2018-01-12] MEDS: OLANZapine 10 MG TAB PO (09:12)
[2018-01-12] MEDS: DOCUSATE SODIUM 100 MG CAP PO (09:13)
[2018-01-12] MEDS: LITHIUM CARBONATE 150 MG CAP PO (09:13)
[2018-01-12] MEDS: lamoTRIgine 100MG TAB PO (09:13)
[2018-01-12] MEDS: FERROUS GLUCONATE 324 MG TAB PO (09:13)
[2018-01-12] MEDS: ATORVASTATIN 10 MG TAB PO (09:13)
[2018-01-12] MEDS: OMEPRAZOLE 20 MG CAP PO (09:13)
[2018-01-12] MEDS: ERYTHROMYCIN OPHTH OINT OU (09:15)
[2018-01-12] MEDS: AZELASTINE 137MCG NASAL SPY 30 ML (ASTELIN) (09:15)
[2018-01-15 09:10] LABS: LAMOTRIGINE (LAMICTAL) 6.7 ug/mL
== END 2018-01-12 12:05 | disposition home or self-care (01) | DRG 683 ==
LOC: M MSPAV 01-11 09:17 → M ED 11:12 → M ED INP 15:24 → M PCU 20:57
DX: N17.9 Acute kidney failure, unspecified (principal); E87.0 Hyperosmolality and hypernatremia; T43.595A Adverse effect of other antipsychotics and neuroleptics, initial encounter; F25.9 Schizoaffective disorder, unspecified; I10 Essential (primary) hypertension; E11.9 Type 2 diabetes mellitus without complications; E78.5 Hyperlipidemia, unspecified; N18.3 Chronic kidney disease, stage 3 (moderate); G40.909 Epilepsy, unspecified, not intractable, without status epilepticus; Z79.01 Long term (current) use of anticoagulants; F41.9 Anxiety disorder, unspecified; K21.9 Gastro-esophageal reflux disease without esophagitis; R42 Dizziness and giddiness; R29.6 Repeated falls; F79 Unspecified intellectual disabilities; J30.9 Allergic rhinitis, unspecified; Z79.899 Other long term (current) drug therapy; K59.00 Constipation, unspecified; Z88.6 Allergy status to analgesic agent; D50.9 Iron deficiency anemia, unspecified; E87.5 Hyperkalemia; E83.52 Hypercalcemia

== ENCOUNTER → 2018-01-14 | Outpatient (CLI) | payer MEDICARE, MEDICAID ==
[2018-01-14 12:47] LABS: INR 1.51; PROTHROMBIN TIME 18.6 SECONDS (12.4-14.5)
== END ==
LOC: M WUC 08:45
DX: I48.1 Persistent atrial fibrillation (principal)
CPT/HCPCS: 85610

== ENCOUNTER → 2018-02-04 | Outpatient (CLI) | payer MEDICARE, MEDICAID ==
[2018-02-04 10:28] LABS: BASO % 0.4 % (0.0-1.0); EOS # 0.2 10^3/uL (0.0-0.50); EOS % 3.7 % (0.0-3.0); HEMATOCRIT 30.3 % (42.0-52.0); HEMOGLOBIN 9.6 g/dl (13.5-17.5); IMMATURE GRANULOCYTE % 0.8 % (0-3.0); LYMPH # 1.2 10^3/uL (1.5-4.5); LYMPH % 24.3 % (24.0-44.0); MEAN CORPUSCULAR HEMOGLOBIN 31.3 pg (27.0-33.0); MEAN CORPUSCULAR HGB CONC 31.7 g/dl (32.0-36.5); MEAN CORPUSCULAR VOLUME 98.7 fl (80.0-96.0); MONO # 0.7 10^3/uL (0.0-0.8); MONO % 13.7 % (0.0-5.0); NEUTROPHILS # 2.9 10^3/uL (1.8-7.7); NEUTROPHILS % 57.1 % (36.0-66.0); PLATELET COUNT, AUTOMATED 171 10^3/uL (150-450); RED BLOOD COUNT 3.07 10^6/uL (4.30-6.10); RED CELL DISTRIBUTION WIDTH 14.6 % (11.5-14.5); WHITE BLOOD COUNT 5.1 10^3/uL (4.0-10.0)
[2018-02-04 10:55] LABS: ERYTHROCYTE SEDIMENTATION RATE 54 mm/hr (0-20)
[2018-02-04 11:47] LABS: ANION GAP 6 MEQ/L (8-16); BLOOD UREA NITROGEN 30 MG/DL (7-18); C REACTIVE PROTEIN QUANTITATIV 0.99 MG/DL (0.00-0.30); CARBON DIOXIDE LEVEL 31 MEQ/L (21-32); CHLORIDE LEVEL 107 MEQ/L (98-107); GLOMERULAR FILTRATION RATE 43.8 (>49); GLUCOSE, FASTING 106 MG/DL (70-100); POTASSIUM SERUM 4.5 MEQ/L (3.5-5.1); SODIUM LEVEL 144 MEQ/L (136-145)
== END ==
LOC: M RAD 09:23
DX: L03.119 Cellulitis of unspecified part of limb (principal); I82.511 Chronic embolism and thrombosis of right femoral vein
CPT/HCPCS: 93971

== ENCOUNTER → 2018-02-12 | Outpatient (CLI) | payer MEDICARE, MEDICAID ==
[2018-02-12 12:10] LABS: BASO % 0.4 % (0.0-1.0); EOS # 0.2 10^3/uL (0.0-0.50); EOS % 4.4 % (0.0-3.0); HEMATOCRIT 31.6 % (42.0-52.0); HEMOGLOBIN 10.3 g/dl (13.5-17.5); IMMATURE GRANULOCYTE % 0.6 % (0-3.0); LYMPH # 1.3 10^3/uL (1.5-4.5); LYMPH % 26.1 % (24.0-44.0); MEAN CORPUSCULAR HEMOGLOBIN 31.6 pg (27.0-33.0); MEAN CORPUSCULAR HGB CONC 32.6 g/dl (32.0-36.5); MEAN CORPUSCULAR VOLUME 96.9 fl (80.0-96.0); MONO # 0.6 10^3/uL (0.0-0.8); MONO % 13.3 % (0.0-5.0); NEUTROPHILS # 2.7 10^3/uL (1.8-7.7); NEUTROPHILS % 55.2 % (36.0-66.0); PLATELET COUNT, AUTOMATED 228 10^3/uL (150-450); RED BLOOD COUNT 3.26 10^6/uL (4.30-6.10); RED CELL DISTRIBUTION WIDTH 13.9 % (11.5-14.5); WHITE BLOOD COUNT 4.8 10^3/uL (4.0-10.0)
[2018-02-12 12:37] LABS: ALBUMIN 3.5 GM/DL (3.2-5.2); ALBUMIN/GLOBULIN RATIO 1.25 (1.00-1.93); ALKALINE PHOSPHATASE 155 U/L (45-117); ALT/SGPT 53 U/L (12-78); ANION GAP 6 MEQ/L (8-16); AST/SGOT 21 U/L (7-37); BILIRUBIN,TOTAL 0.4 MG/DL (0.2-1.0); BLOOD UREA NITROGEN 34 MG/DL (7-18); CARBON DIOXIDE LEVEL 32 MEQ/L (21-32); CHLORIDE LEVEL 107 MEQ/L (98-107); CHOLESTEROL LEVEL 146 MG/DL (<200); CHOLESTEROL RISK RATIO 4.171 (<5); CREATININE FOR GFR 1.78 MG/DL (0.70-1.30); GLOMERULAR FILTRATION RATE 41.6 (>49); GLUCOSE, FASTING 105 MG/DL (70-100); HDL CHOLESTEROL 35 MG/DL (>40); LDL CHOLESTEROL 47.6 MG/DL (<100); NON-HDL-C 111 MG/DL; POTASSIUM SERUM 4.4 MEQ/L (3.5-5.1); SODIUM LEVEL 145 MEQ/L (136-145); THYROID STIMULATING HORMONE 0.689 uIU/ML (0.358-3.740); TOTAL PROTEIN 6.3 GM/DL (6.4-8.2); TRIGLYCERIDES LEVEL 317 MG/DL (<150)
[2018-02-12 12:38] LABS: LITHIUM LEVEL 0.34 MEQ/L (0.60-1.20)
[2018-02-12 12:43] LABS: PROLACTIN 40.6 NG/ML (2.1-17.7)
[2018-02-12 13:00] LABS: ESTIMATED AVERAGE GLUCOSE 108 MG/DL (60-110); HEMOGLOBIN A1c 5.4 %
== END ==
LOC: M WUC 08:32
DX: F71 Moderate intellectual disabilities (principal); Z79.899 Other long term (current) drug therapy
CPT/HCPCS: 80178

== ENCOUNTER → 2018-02-25 | Outpatient (REF) | payer MEDICARE, MEDICAID | LOC: M SFHCPLAZ 15:58 | DX: L03.115 Cellulitis of right lower limb (principal) | CPT/HCPCS: 87186; 87205 ==

== ENCOUNTER 2018-03-13 08:24 | Emergency (ER) | payer MEDICARE, MEDICAID ==
[2018-03-13] MEDS ORDERED: HALOPERIDOL 5 MG/ML VIAL (J1630) As Ordered (08:50)
[2018-03-13] MEDS ORDERED: diphenhydrAMINE INJ 50MG/ML VIAL (J1200) As Ordered (08:50)
[2018-03-13] MEDS: diphenhydrAMINE INJ 50MG/ML VIAL (J1200) IM (09:00)
[2018-03-13] MEDS: HALOPERIDOL 5 MG/ML VIAL (J1630) IM (09:00)
[2018-03-13 10:02] LABS: BASO % 0.4 % (0.0-1.0); EOS # 0.4 10^3/uL (0.0-0.50); HEMATOCRIT 33.1 % (42.0-52.0); HEMOGLOBIN 10.5 g/dl (13.5-17.5); IMMATURE GRANULOCYTE % 0.5 % (0-3.0); LYMPH # 0.8 10^3/uL (1.5-4.5); LYMPH % 9.4 % (24.0-44.0); MEAN CORPUSCULAR HEMOGLOBIN 31.1 pg (27.0-33.0); MEAN CORPUSCULAR HGB CONC 31.7 g/dl (32.0-36.5); MEAN CORPUSCULAR VOLUME 97.9 fl (80.0-96.0); MONO # 0.9 10^3/uL (0.0-0.8); MONO % 10.5 % (0.0-5.0); NEUTROPHILS # 6.1 10^3/uL (1.8-7.7); NEUTROPHILS % 74.2 % (36.0-66.0); PLATELET COUNT, AUTOMATED 193 10^3/uL (150-450); RED BLOOD COUNT 3.38 10^6/uL (4.30-6.10); RED CELL DISTRIBUTION WIDTH 13.5 % (11.5-14.5); WHITE BLOOD COUNT 8.2 10^3/uL (4.0-10.0)
[2018-03-13 10:33] LABS: ALKALINE PHOSPHATASE 140 U/L (45-117); ALT/SGPT 47 U/L (12-78); AST/SGOT 17 U/L (7-37); BILIRUBIN,DIRECT 0.1 MG/DL (0.0-0.2); BILIRUBIN,TOTAL 0.5 MG/DL (0.2-1.0); BLOOD UREA NITROGEN 28 MG/DL (7-18); CALCIUM LEVEL 9.5 MG/DL (8.8-10.2); CHLORIDE LEVEL 108 MEQ/L (98-107); CPK CREATINE PHOSPHOKINASE 119 U/L (39-308); CREATININE FOR GFR 2.16 MG/DL (0.70-1.30); GLUCOSE, FASTING 124 MG/DL (70-100); LIPASE 78 U/L (73-393); POTASSIUM SERUM 4.3 MEQ/L (3.5-5.1); SODIUM LEVEL 146 MEQ/L (136-145); TOTAL PROTEIN 6.7 GM/DL (6.4-8.2); TROPONIN I < 0.02 NG/ML (< 0.10)
[2018-03-13 10:39] LABS: CK-MB VALUE MASS < 1.0 NG/ML (<3.6); MB/CK RELATIVE INDEX 0.84 (< OR =4); NT-PRO BNP 126 PG/ML (<125); THYROID STIMULATING HORMONE 0.425 uIU/ML (0.358-3.740)
[2018-03-13 12:30] LABS: ALBUMIN 3.4 GM/DL (3.2-5.2); ALBUMIN/GLOBULIN RATIO 1.03 (1.00-1.93); ANION GAP 6 MEQ/L (8-16); CARBON DIOXIDE LEVEL 32 MEQ/L (21-32)
[2018-03-13 15:25] LABS: CPK CREATINE PHOSPHOKINASE 154 U/L (39-308); TROPONIN I < 0.02 NG/ML (< 0.10)
[2018-03-13 15:26] LABS: CK-MB VALUE MASS < 1.0 NG/ML (<3.6); MB/CK RELATIVE INDEX 0.64 (< OR =4)
== END 2018-03-13 16:48 | disposition home or self-care (01) ==
LOC: M ED 08:24
DX: R07.9 Chest pain, unspecified (principal); E11.9 Type 2 diabetes mellitus without complications; I12.9 Hypertensive chronic kidney disease with stage 1 through stage 4 chronic kidney disease, or unspecified chronic kidney disease; N18.9 Chronic kidney disease, unspecified; F79 Unspecified intellectual disabilities; Z79.899 Other long term (current) drug therapy; Z79.01 Long term (current) use of anticoagulants; Z88.8 Allergy status to other drugs, medicaments and biological substances
CPT/HCPCS: J1200

== ENCOUNTER → 2018-04-03 | Outpatient (CLI) | payer MEDICARE, MEDICAID ==
[2018-04-03 09:18] LABS: BASO % 0.4 % (0.0-1.0); EOS # 0.3 10^3/uL (0.0-0.50); EOS % 5.5 % (0.0-3.0); HEMATOCRIT 30.9 % (42.0-52.0); IMMATURE GRANULOCYTE % 0.4 % (0-3.0); LYMPH # 1.4 10^3/uL (1.5-4.5); LYMPH % 28.4 % (24.0-44.0); MEAN CORPUSCULAR HEMOGLOBIN 30.8 pg (27.0-33.0); MEAN CORPUSCULAR HGB CONC 32.4 g/dl (32.0-36.5); MEAN CORPUSCULAR VOLUME 95.1 fl (80.0-96.0); MONO # 0.5 10^3/uL (0.0-0.8); MONO % 10.8 % (0.0-5.0); NEUTROPHILS # 2.7 10^3/uL (1.8-7.7); NEUTROPHILS % 54.5 % (36.0-66.0); PLATELET COUNT, AUTOMATED 234 10^3/uL (150-450); RED BLOOD COUNT 3.25 10^6/uL (4.30-6.10); RED CELL DISTRIBUTION WIDTH 13.5 % (11.5-14.5); WHITE BLOOD COUNT 4.9 10^3/uL (4.0-10.0)
[2018-04-03 10:01] LABS: ALBUMIN 3.3 GM/DL (3.2-5.2); ALBUMIN/GLOBULIN RATIO 0.92 (1.00-1.93); ALKALINE PHOSPHATASE 142 U/L (45-117); ALT/SGPT 48 U/L (12-78); ANION GAP 5 MEQ/L (8-16); AST/SGOT 20 U/L (7-37); BILIRUBIN,TOTAL 0.3 MG/DL (0.2-1.0); BLOOD UREA NITROGEN 24 MG/DL (7-18); CALCIUM LEVEL 9.7 MG/DL (8.8-10.2); CARBON DIOXIDE LEVEL 32 MEQ/L (21-32); CHLORIDE LEVEL 108 MEQ/L (98-107); CHOLESTEROL LEVEL 166 MG/DL (<200); GLOMERULAR FILTRATION RATE 36.2 (>49); GLUCOSE, FASTING 96 MG/DL (70-100); HDL CHOLESTEROL 40 MG/DL (>40); LDL CHOLESTEROL 79.6 MG/DL (<100); NON-HDL-C 126 MG/DL; POTASSIUM SERUM 4.3 MEQ/L (3.5-5.1); SODIUM LEVEL 145 MEQ/L (136-145); TOTAL PROTEIN 6.9 GM/DL (6.4-8.2); TRIGLYCERIDES LEVEL 232 MG/DL (<150)
[2018-04-03 10:27] LABS: ESTIMATED AVERAGE GLUCOSE 111 MG/DL (60-110); HEMOGLOBIN A1c 5.5 %
[2018-04-04 14:46] LABS: PSA TOTAL 2.3 ng/mL (0.0-4.0)
== END ==
LOC: M WUC 08:10
DX: E78.4 Other hyperlipidemia (principal); E11.9 Type 2 diabetes mellitus without complications; K21.9 Gastro-esophageal reflux disease without esophagitis; Z12.5 Encounter for screening for malignant neoplasm of prostate
CPT/HCPCS: 80053

== ENCOUNTER 2018-04-21 13:03 | Emergency (ER) | payer MEDICARE, MEDICAID | END 2018-04-21 16:55 | disposition home or self-care (01) | LOC: M ED 13:03 | DX: L03.113 Cellulitis of right upper limb (principal); E11.9 Type 2 diabetes mellitus without complications; F41.9 Anxiety disorder, unspecified; F32.9 Major depressive disorder, single episode, unspecified; F25.9 Schizoaffective disorder, unspecified; K21.9 Gastro-esophageal reflux disease without esophagitis; F79 Unspecified intellectual disabilities; R51 Headache; R56.9 Unspecified convulsions; Z86.718 Personal history of other venous thrombosis and embolism; Z88.8 Allergy status to other drugs, medicaments and biological substances; Z79.899 Other long term (current) drug therapy; Z79.01 Long term (current) use of anticoagulants | CPT/HCPCS: 73090 ==

== ENCOUNTER → 2018-06-17 | Outpatient (REF) | payer MEDICARE, MEDICAID ==
[2018-06-17 11:41] LABS: BASO % 0.4 % (0.0-1.0); EOS # 0.2 10^3/uL (0.0-0.50); EOS % 3.9 % (0.0-3.0); HEMATOCRIT 34.3 % (42.0-52.0); HEMOGLOBIN 11.1 g/dl (13.5-17.5); IMMATURE GRANULOCYTE % 0.5 % (0-3.0); LYMPH # 1.3 10^3/uL (1.5-4.5); LYMPH % 22.8 % (24.0-44.0); MEAN CORPUSCULAR HGB CONC 32.4 g/dl (32.0-36.5); MEAN CORPUSCULAR VOLUME 92.7 fl (80.0-96.0); MONO # 0.8 10^3/uL (0.0-0.8); MONO % 13.8 % (0.0-5.0); NEUTROPHILS # 3.4 10^3/uL (1.8-7.7); NEUTROPHILS % 58.6 % (36.0-66.0); PLATELET COUNT, AUTOMATED 190 10^3/uL (150-450); RED CELL DISTRIBUTION WIDTH 13.6 % (11.5-14.5); WHITE BLOOD COUNT 5.7 10^3/uL (4.0-10.0)
[2018-06-17 11:54] LABS: INR 1.81; PROTHROMBIN TIME 21.3 SECONDS (12.1-14.4)
[2018-06-17 12:18] LABS: ERYTHROCYTE SEDIMENTATION RATE 54 mm/hr (0-20)
[2018-06-17 12:43] LABS: ANION GAP 6 MEQ/L (8-16); BLOOD UREA NITROGEN 32 MG/DL (7-18); CALCIUM LEVEL 9.5 MG/DL (8.8-10.2); CARBON DIOXIDE LEVEL 30 MEQ/L (21-32); CHLORIDE LEVEL 108 MEQ/L (98-107); CREATININE FOR GFR 2.23 MG/DL (0.70-1.30); GLOMERULAR FILTRATION RATE 31.9 (>49); GLUCOSE, FASTING 100 MG/DL (70-100); POTASSIUM SERUM 4.5 MEQ/L (3.5-5.1); SODIUM LEVEL 144 MEQ/L (136-145)
== END ==
LOC: M SFHCPLAZ 09:32
DX: L03.119 Cellulitis of unspecified part of limb (principal); I82.511 Chronic embolism and thrombosis of right femoral vein
CPT/HCPCS: 80048

== ENCOUNTER → 2018-07-02 | Outpatient (REF) | payer MEDICARE, MEDICAID ==
[2018-07-02 20:20] LABS: INR 2.38; PROTHROMBIN TIME 26.5 SECONDS (12.1-14.4)
== END ==
LOC: M LAB REF 19:51
DX: Z79.01 Long term (current) use of anticoagulants (principal)
CPT/HCPCS: 85610

== ENCOUNTER 2018-07-30 18:05 | Emergency (ER) | payer MEDICARE, MEDICAID ==
[2018-07-30] MEDS: LORazepam 2 MG/ML VIAL (J2060) IM (19:29)
== END 2018-07-30 20:40 | disposition home or self-care (01) ==
LOC: M ED 18:05
DX: F43.20 Adjustment disorder, unspecified (principal); R45.1 Restlessness and agitation; I12.9 Hypertensive chronic kidney disease with stage 1 through stage 4 chronic kidney disease, or unspecified chronic kidney disease; N18.9 Chronic kidney disease, unspecified; Z79.899 Other long term (current) drug therapy; Z88.8 Allergy status to other drugs, medicaments and biological substances; F17.210 Nicotine dependence, cigarettes, uncomplicated
CPT/HCPCS: J2060

== ENCOUNTER → 2018-08-01 | Outpatient (REF) | payer MEDICARE, MEDICAID ==
[~2018-08-01] MED LIST changes: +/HYDR10T PO; +/LAMO20TA PO; +/MOM400 PO; +ABIL15TA PO; +ABIL1TAB12 PO; +ACET1TAB55 PO; +ACET50TA PO; -ACETAMINOPHEN 325 MG TAB PO; +ALBU17IN2 INH; +AMIL5TAB4 PO; +AMMO12CR4 TOP; +ARTISOL10 OU; +ARTISOL2 OU; +ASTE137S; +ATIV2INJ2 IM; +ATOR1TAB19 PO; +AUGM500T34 PO; +AUGM875T27 PO; +AZEL0.055; +AZEL0.1S; +AZEL0.1S3; +BENZ-52 PO; +BENZ1TA PO; +BENZ1TAB PO; +CALC0.25 PO; +CARV12.5 PO; +CARV3.12 PO; +CARV6.25 PO; +CEFD1CAP8 PO; +CEPH500C PO; +CLIN150C14 PO; +CLON1TAB8 PO; +COGE1INJ PO; +COLA100C5 PO; +COUM1TAB17 PO; +COUM1TAB19 PO; +COUM2.5T17 PO; +COUM7.5T PO; +DEPA500T2 PO; +DIPH50VL IM; +DOCU100T PO; +DOXY100C PO; +DOXY10CA PO; +DOXY200C PO; +DOXY75CA3 PO; +ECON1CRE TOP; +ERYT5OPO OU; +EUCECRE3 TOP; +FERR325T16 PO; +FINA5TAB2 PO; +FLOM0.4C39 PO; +FLON0.05; +FLON0.054; +FLON1SPR; +FRUICHW PO; +HALD5INJ2 IM; +HYDR-3363 PO; +KEFL500C17 PO; +KETOPOW TOP; +KLON1TAB PO; +LAC-12LO3 TOP; +LAMI1TAB9 PO; +LATU1TAB PO; +LATU80TA PO; +LEVA250T13 PO; +LIPI10TA PO; +LITH150C PO; +LITH1TAB PO; +LITH300C PO; +LITH300T2 PO; +LOPR50TA PO; +LORA1TAB12 PO; +LORA2TA IM; +LORA2TA PO; +LORA2TAB9 PO; -MIDAZOLAM INJ 2 MG/2 ML VIAL (J2250) As Ordered; +MUCI600T37 PO; +MUPI2OI TOP; +MYLASS PO; +NATURAL TEARS OU; +NYST10CR TOP; +NYST1POW9 TOP; +OLAN10TA2 PO; +OMEP40CA2 PO; +OXCA150T21 PO; -PHENYLEPHRINE HCL 10 % OPHTH. SOL 5ML OD; +PRIL20CA9 PO; +PRIL40CA PO; +PROM25TA PO; -PROPARACAINE 0.5% OPHTH SOL 15ML OD; +RISP4TAB33 PO; +ROCA0.25 PO; +SENN15UDC PO; +THERTAB30 PO; +TRIA25CR TOP; +TRIL150T PO; +TYLE325T5 PO; +VITA50005 PO; +VITMTA PO; +WARF-23 PO; +ZYPR10TA PO; +ZYPR15TA PO; +ZYPR1INJ IM; +ZYPR20TA PO; +ZYPR20TA3 PO; +[UNRECOGNIZED DRUG - CODE] IM; +[UNRECOGNIZED DRUG - CODE] OU; +[UNRECOGNIZED DRUG - CODE] OU; +[UNRECOGNIZED DRUG - CODE] TOP; +[UNRECOGNIZED DRUG - OTHER] TOP; -fentaNYL 100 MCG/2 ML INJECTION (J3010) As Ordered
[2018-08-01 19:40] LABS: BASO % 0.4 % (0.0-1.0); EOS # 0.3 10^3/uL (0.0-0.50); EOS % 5.6 % (0.0-3.0); HEMATOCRIT 29.1 % (42.0-52.0); HEMOGLOBIN 9.1 g/dl (13.5-17.5); LYMPH # 1.2 10^3/uL (1.5-4.5); MEAN CORPUSCULAR HEMOGLOBIN 29.7 pg (27.0-33.0); MEAN CORPUSCULAR HGB CONC 31.3 g/dl (32.0-36.5); MEAN CORPUSCULAR VOLUME 95.1 fl (80.0-96.0); MONO # 0.5 10^3/uL (0.0-0.8); MONO % 10.8 % (0.0-5.0); NEUTROPHILS # 2.8 10^3/uL (1.8-7.7); NEUTROPHILS % 57.8 % (36.0-66.0); PLATELET COUNT, AUTOMATED 228 10^3/uL (150-450); RED BLOOD COUNT 3.06 10^6/uL (4.30-6.10); WHITE BLOOD COUNT 4.8 10^3/uL (4.0-10.0)
[2018-08-01 19:44] LABS: ALBUMIN 3.4 GM/DL (3.2-5.2); BILIRUBIN,TOTAL 0.5 MG/DL (0.2-1.0); CHOLESTEROL RISK RATIO 4.342 (<5); CREATININE FOR GFR 2.12 MG/DL (0.70-1.30); GLOMERULAR FILTRATION RATE 33.9 (>49); LITHIUM LEVEL 0.36 MEQ/L (0.60-1.20); POTASSIUM SERUM 4.4 MEQ/L (3.5-5.1); THYROID STIMULATING HORMONE 0.889 uIU/ML (0.358-3.740); TOTAL PROTEIN 6.4 GM/DL (6.4-8.2)
[2018-08-01 19:49] LABS: HEMOGLOBIN A1c 5.8 %
== END ==
LOC: M LABDRWAD 18:59
PROVIDERS: ATTEND Physician Assistant
DX: F25.9 Schizoaffective disorder, unspecified (principal); E07.9 Disorder of thyroid, unspecified; E78.00 Pure hypercholesterolemia, unspecified

== ENCOUNTER → 2018-08-06 | Outpatient (REF) | payer MEDICARE, MEDICAID ==
[2018-08-06 12:48] LABS: INR 2.01; PROTHROMBIN TIME 23.2 SECONDS (12.1-14.4)
== END ==
LOC: M LABDRWAD 12:02
DX: Z79.01 Long term (current) use of anticoagulants (principal)

== ENCOUNTER 2018-08-07 15:16 | Inpatient (IN) | payer MEDICARE, MEDICAID ==
[2018-08-07] MEDS ORDERED: LORazepam 2 MG/ML VIAL (J2060) As Ordered (15:45)
[2018-08-07] MEDS: LORazepam 2 MG/ML VIAL (J2060) IM (15:47)
[2018-08-07] MEDS: NS 1,000 ML IV ×2 (17:01→23:58)
[2018-08-07 17:09] LABS: BASO % 0.3 % (0.0-1.0); EOS # 0.2 10^3/uL (0.0-0.50); EOS % 1.5 % (0.0-3.0); HEMATOCRIT 30.5 % (42.0-52.0); HEMOGLOBIN 9.7 g/dl (13.5-17.5); IMMATURE GRANULOCYTE % 0.3 % (0-3.0); LYMPH # 1.2 10^3/uL (1.5-4.5); LYMPH % 10.1 % (24.0-44.0); MEAN CORPUSCULAR HEMOGLOBIN 29.9 pg (27.0-33.0); MEAN CORPUSCULAR HGB CONC 31.8 g/dl (32.0-36.5); MEAN CORPUSCULAR VOLUME 94.1 fl (80.0-96.0); MONO % 8.5 % (0.0-5.0); NEUTROPHILS # 9.1 10^3/uL (1.8-7.7); NEUTROPHILS % 79.3 % (36.0-66.0); PLATELET COUNT, AUTOMATED 182 10^3/uL (150-450); RED BLOOD COUNT 3.24 10^6/uL (4.30-6.10); RED CELL DISTRIBUTION WIDTH 14.7 % (11.5-14.5); WHITE BLOOD COUNT 11.5 10^3/uL (4.0-10.0)
[2018-08-07] MEDS: LORazepam 2 MG/ML VIAL (J2060) IV ×2 (17:19→22:36)
[2018-08-07 17:27] LABS: ALBUMIN 3.1 GM/DL (3.2-5.2); ALBUMIN/GLOBULIN RATIO 1.03 (1.00-1.93); ALKALINE PHOSPHATASE 131 U/L (45-117); ALT/SGPT 26 U/L (12-78); ANION GAP 7 MEQ/L (8-16); AST/SGOT 9 U/L (7-37); BILIRUBIN,DIRECT < 0.1 MG/DL (0.0-0.2); BILIRUBIN,TOTAL 0.5 MG/DL (0.2-1.0); BLOOD UREA NITROGEN 36 MG/DL (7-18); CARBON DIOXIDE LEVEL 31 MEQ/L (21-32); CHLORIDE LEVEL 104 MEQ/L (98-107); CREATININE FOR GFR 2.85 MG/DL (0.70-1.30); GLOMERULAR FILTRATION RATE 24.1 (>49); GLUCOSE, FASTING 216 MG/DL (70-100); INR 2.33; POTASSIUM SERUM 4.2 MEQ/L (3.5-5.1); PROTHROMBIN TIME 26.1 SECONDS (12.1-14.4); SODIUM LEVEL 142 MEQ/L (136-145); TOTAL PROTEIN 6.1 GM/DL (6.4-8.2)
[2018-08-07 17:32] LABS: INFLUENZA A AMPLIFICATION NEGATIVE (NEGATIVE); INFLUENZA B AMPLIFICATION NEGATIVE (NEGATIVE)
[2018-08-07] MEDS: HALOPERIDOL 5 MG/ML VIAL (J1630) IM ×2 (17:55→22:35)
[2018-08-07 18:30] LABS: IRON (FE) 18 UG/DL (65-175)
[2018-08-07 18:31] LABS: FERRITIN 28 NG/ML (26-388); PERCENT SATURATION 6.2 % (19.7-50.0); TOTAL IRON BINDING CAPACITY 292 UG/DL (250-450)
[2018-08-07 18:36] LABS: KETONE, URINE AUTO RFX NEGATIVE (NEGATIVE); LEUKOCYTE ESTERASE UR AUTO RFX NEGATIVE (NEGATIVE); NITRITE, URINE AUTO RFX NEGATIVE (NEGATIVE); RBC, URINE AUTO RFX 0 /HPF (0-3); SPECIFIC GRAVITY UR AUTO RFX 1.005 (1.002-1.035); SQUAM EPITHELIAL CELL UR AURFX 0 /HPF (0-6); WBC, URINE AUTO RFX 1 /HPF (0-3)
[2018-08-07] MEDS: ACETAMINOPHEN TAB 650MG DOSE (2X325MG) PO (18:45)
[2018-08-07] MEDS: cefTRIAXone SOD 1 GM in D5W MINI-BAG PLUS 50 ML IV (18:49)
[2018-08-07] MEDS ORDERED: BISACODYL 10 MG SUPP PR (20:30)
[2018-08-07] MEDS ORDERED: BISACODYL 5 MG TAB PO (20:30)
[2018-08-07] MEDS: HumaLOG INSULIN (NovoLOG) PER UNIT SC (21:00)
[2018-08-07] MEDS ORDERED: GLUCAGON FOR INJ 1 MG VIAL (J1610) SC (21:00)
[2018-08-07] MEDS ORDERED: DEXTROSE 50% 50 ML SYRINGE IV (21:00)
[2018-08-07] MEDS ORDERED: GLUCOSE 4 GM CHEW TABLET PO (21:00)
[2018-08-07] MEDS: hydrOXYzine 25 MG TAB PO (22:35)
[2018-08-08] MEDS: AZITHROMYCIN INJ 500 MG, VIAL MATE ADAPTER 1 EACH in D5W 250 ML IV (00:41)
[2018-08-08] MEDS: NS 1,000 ML IV ×3 (04:19→17:06)
[2018-08-08] MEDS: LORazepam 2 MG/ML VIAL (J2060) IV ×2 (04:51→21:51)
[2018-08-08 05:50] LABS: HEMATOCRIT 27.2 % (42.0-52.0); HEMOGLOBIN 8.4 g/dl (13.5-17.5); MEAN CORPUSCULAR HEMOGLOBIN 29.8 pg (27.0-33.0); MEAN CORPUSCULAR HGB CONC 30.9 g/dl (32.0-36.5); MEAN CORPUSCULAR VOLUME 96.5 fl (80.0-96.0); PLATELET COUNT, AUTOMATED 172 10^3/uL (150-450); RED BLOOD COUNT 2.82 10^6/uL (4.30-6.10); WHITE BLOOD COUNT 11.8 10^3/uL (4.0-10.0)
[2018-08-08 06:05] LABS: INR 2.49; PROTHROMBIN TIME 27.4 SECONDS (12.1-14.4)
[2018-08-08 06:18] LABS: ANION GAP 8 MEQ/L (8-16); BLOOD UREA NITROGEN 28 MG/DL (7-18); CALCIUM LEVEL 8.6 MG/DL (8.8-10.2); CARBON DIOXIDE LEVEL 28 MEQ/L (21-32); CHLORIDE LEVEL 107 MEQ/L (98-107); CREATININE FOR GFR 2.52 MG/DL (0.70-1.30); GLOMERULAR FILTRATION RATE 27.7 (>49); GLUCOSE, FASTING 162 MG/DL (70-100); POTASSIUM SERUM 4.1 MEQ/L (3.5-5.1); SODIUM LEVEL 143 MEQ/L (136-145)
[2018-08-08] MEDS ORDERED: LORazepam 2 MG/ML VIAL (J2060) IM (07:45)
[2018-08-08] MEDS ORDERED: LORazepam 1 MG TAB PO (07:45)
[2018-08-08] MEDS ORDERED: TRIAMCINOLONE ACETONIDE 0.025 % 80 GM CREAM TOP (07:45)
[2018-08-08] MEDS: DOCUSATE SODIUM 100 MG CAP PO (08:22)
[2018-08-08] MEDS: CARVedilol 6.25 MG TAB PO (08:24)
[2018-08-08] MEDS: clonazePAM 1 MG TAB PO ×3 (08:24→22:47)
[2018-08-08] MEDS: OMEPRAZOLE 20 MG CAP PO (08:24)
[2018-08-08] MEDS: ATORVASTATIN 10 MG TAB PO (08:25)
[2018-08-08] MEDS: CALCITRIOL 0.25 MCG CAP (S0169) PO (08:25)
[2018-08-08] MEDS: FERROUS GLUCONATE 324 MG TAB PO (08:25)
[2018-08-08] MEDS: LITHIUM CARBONATE 150 MG CAP PO ×2 (08:26→22:47)
[2018-08-08] MEDS: OLANZapine 10 MG TAB PO (08:26)
[2018-08-08] MEDS: NYSTATIN 100,000 UNITS/GM TOPICAL PWD 15 GM TOP ×2 (08:27→22:52)
[2018-08-08] MEDS: LACTIC ACID 12% LOTION 225 GM BTL TOP ×2 (08:32→22:52)
[2018-08-08] MEDS: EUCERIN 120GM CREAM TOP ×4 (08:32→22:52)
[2018-08-08] MEDS: HumaLOG INSULIN (NovoLOG) PER UNIT SC ×4 (08:33→22:48)
[2018-08-08] MEDS: lamoTRIgine 100MG TAB PO ×2 (08:53→22:47)
[2018-08-08 11:17] LABS: LITHIUM LEVEL 0.45 MEQ/L (0.60-1.20)
[2018-08-08] MEDS: guaiFENesin ER 600 MG TAB PO ×2 (13:36→22:47)
[2018-08-08] MEDS ORDERED: LURASIDONE 20 MG TAB (LATUDA) PO (16:00)
[2018-08-08 16:33] LABS: ANION GAP 7 MEQ/L (8-16); BLOOD UREA NITROGEN 27 MG/DL (7-18); CARBON DIOXIDE LEVEL 25 MEQ/L (21-32); CHLORIDE LEVEL 114 MEQ/L (98-107); CREATININE FOR GFR 2.23 MG/DL (0.70-1.30); GLOMERULAR FILTRATION RATE 31.9 (>49); GLUCOSE, FASTING 160 MG/DL (70-100); SODIUM LEVEL 146 MEQ/L (136-145)
[2018-08-08 16:49] LABS: BEDSIDE GLUCOSE 162 MG/DL (80-115)
[2018-08-08 16:49] LABS: BEDSIDE GLUCOSE 153 MG/DL (80-115)
[2018-08-08] MEDS: WARFARIN SOD 5 MG TAB PO (16:57)
[2018-08-08] MEDS: LURASIDONE HCL 40 MG TAB (LATUDA) PO (17:05)
[2018-08-08] MEDS ORDERED: cefTRIAXone SOD 1 GM in D5W MINI-BAG PLUS 50 ML IV (20:00)
[2018-08-08] MEDS ORDERED: LORazepam 2 MG/ML VIAL (J2060) IV (21:00)
[2018-08-08 22:27] LABS: BEDSIDE GLUCOSE 153 MG/DL (80-115)
[2018-08-08 22:35] LABS: ABG BASE EXCESS 2.8 (-2.0-2.0); ABG HCO3 29.2 MEQ/L (22.0-26.0); ABG O2 SATURATION 92.7 % (95.0-99.0); ABG PARTIAL PRESSURE CO2 54.3 mmHg (35.0-45.0); ABG PARTIAL PRESSURE O2 64.2 mmHg (75.0-100.0); ABG STANDARD HCO3 26.9 MEQ/L (22.0-26.0); ABG TOTAL CO2 30.8 MEQ/L (23.0-31.0); ABG pH (ARTERIAL) 7.348 UNITS (7.350-7.450)
[2018-08-08] MEDS: TAMSULOSIN 0.4 MG CAP PO (22:46)
[2018-08-08] MEDS: FINASTERIDE 5 MG TAB PO (22:47)
[2018-08-08] MEDS: SENOKOT S TAB PO (22:48)
[2018-08-08] MEDS: ONDANSETRON 4MG/2ML VIAL (J2405) IV (22:48)
[2018-08-08] MEDS: MULTIVITAMINS/MINERALS THERAP 1 TAB PO (22:48)
[2018-08-08] MEDS: FLUTICASONE PROP 0.05% NASAL SPRAY 16 GM (FLONASE) (22:52)
[2018-08-08] MEDS: CARVedilol 3.125 MG TAB PO (22:52)
[2018-08-08] MEDS: IPRATROPIUM 0.5MG/ALBUTEROL 2.5MG INH SOL UD 3ML (DUONEB)(J7620) NEB (23:15)
[2018-08-09] MEDS ORDERED: IPRATROPIUM 0.5MG/ALBUTEROL 2.5MG INH SOL UD 3ML (DUONEB)(J7620) NEB (01:45)
[2018-08-09] MEDS: IPRATROPIUM 0.5MG/ALBUTEROL 2.5MG INH SOL UD 3ML (DUONEB)(J7620) NEB ×4 (02:00→20:55)
[2018-08-09 05:27] LABS: ABG BASE EXCESS 3.4 (-2.0-2.0); ABG HCO3 29.9 MEQ/L (22.0-26.0); ABG O2 SATURATION 92.7 % (95.0-99.0); ABG PARTIAL PRESSURE CO2 55.5 mmHg (35.0-45.0); ABG PARTIAL PRESSURE O2 66.3 mmHg (75.0-100.0); ABG STANDARD HCO3 27.5 MEQ/L (22.0-26.0); ABG TOTAL CO2 31.6 MEQ/L (23.0-31.0); ABG pH (ARTERIAL) 7.349 UNITS (7.350-7.450)
[2018-08-09 05:42] LABS: HEMATOCRIT 29.8 % (42.0-52.0); HEMOGLOBIN 8.9 g/dl (13.5-17.5); MEAN CORPUSCULAR HEMOGLOBIN 29.7 pg (27.0-33.0); MEAN CORPUSCULAR HGB CONC 29.9 g/dl (32.0-36.5); MEAN CORPUSCULAR VOLUME 99.3 fl (80.0-96.0); PLATELET COUNT, AUTOMATED 177 10^3/uL (150-450); RED CELL DISTRIBUTION WIDTH 14.9 % (11.5-14.5); WHITE BLOOD COUNT 7.6 10^3/uL (4.0-10.0)
[2018-08-09 05:52] LABS: INR 1.95; PROTHROMBIN TIME 22.6 SECONDS (12.1-14.4)
[2018-08-09 05:58] LABS: ESTIMATED AVERAGE GLUCOSE 120 MG/DL (60-110); HEMOGLOBIN A1c 5.8 %
[2018-08-09 05:59] LABS: ANION GAP 2 MEQ/L (8-16); BLOOD UREA NITROGEN 20 MG/DL (7-18); CALCIUM LEVEL 9.6 MG/DL (8.8-10.2); CARBON DIOXIDE LEVEL 32 MEQ/L (21-32); CHLORIDE LEVEL 113 MEQ/L (98-107); GLOMERULAR FILTRATION RATE 34.2 (>49); GLUCOSE, FASTING 129 MG/DL (70-100); POTASSIUM SERUM 4.6 MEQ/L (3.5-5.1); SODIUM LEVEL 147 MEQ/L (136-145)
[2018-08-09] MEDS: LACTIC ACID 12% LOTION 225 GM BTL TOP ×2 (08:34→21:16)
[2018-08-09] MEDS: EUCERIN 120GM CREAM TOP ×3 (08:34→21:15)
[2018-08-09] MEDS: FERROUS GLUCONATE 324 MG TAB PO (08:35)
[2018-08-09] MEDS: clonazePAM 1 MG TAB PO ×3 (08:35→21:12)
[2018-08-09] MEDS: OLANZapine 10 MG TAB PO (08:35)
[2018-08-09] MEDS: SENOKOT S TAB PO ×2 (08:35→21:12)
[2018-08-09] MEDS: guaiFENesin ER 600 MG TAB PO ×2 (08:35→21:12)
[2018-08-09] MEDS: NYSTATIN 100,000 UNITS/GM TOPICAL PWD 15 GM TOP ×2 (08:35→21:16)
[2018-08-09] MEDS: LITHIUM CARBONATE 150 MG CAP PO ×2 (08:35→22:00)
[2018-08-09] MEDS: lamoTRIgine 100MG TAB PO ×2 (08:35→21:12)
[2018-08-09] MEDS: ATORVASTATIN 10 MG TAB PO (08:36)
[2018-08-09] MEDS: OMEPRAZOLE 20 MG CAP PO (08:36)
[2018-08-09] MEDS: CARVedilol 3.125 MG TAB PO ×2 (08:36→21:00)
[2018-08-09] MEDS: D5W 1,000 ML IV ×2 (14:42→21:15)
[2018-08-09] MEDS: WARFARIN SOD 3 MG TAB PO (17:28)
[2018-08-09] MEDS: LURASIDONE HCL 40 MG TAB (LATUDA) PO (17:28)
[2018-08-09] MEDS: FLUTICASONE PROP 0.05% NASAL SPRAY 16 GM (FLONASE) (21:00)
[2018-08-09] MEDS: cefTRIAXone SOD 1 GM in D5W MINI-BAG PLUS 50 ML IV (21:11)
[2018-08-09] MEDS: FINASTERIDE 5 MG TAB PO (21:11)
[2018-08-09] MEDS: MULTIVITAMINS/MINERALS THERAP 1 TAB PO (21:12)
[2018-08-09] MEDS: TAMSULOSIN 0.4 MG CAP PO (21:12)
[2018-08-09 21:35] LABS: BEDSIDE GLUCOSE 195 MG/DL (80-115)
[2018-08-09] MEDS: AZITHROMYCIN INJ 500 MG, VIAL MATE ADAPTER 1 EACH in D5W 250 ML IV (22:00)
[2018-08-10] MEDS: IPRATROPIUM 0.5MG/ALBUTEROL 2.5MG INH SOL UD 3ML (DUONEB)(J7620) NEB ×4 (02:00→20:06)
[2018-08-10] MEDS: ACETAMINOPHEN TAB 650MG DOSE (2X325MG) PO (03:15)
[2018-08-10 07:16] LABS: HEMATOCRIT 28.5 % (42.0-52.0); HEMOGLOBIN 8.9 g/dl (13.5-17.5); MEAN CORPUSCULAR HEMOGLOBIN 29.4 pg (27.0-33.0); MEAN CORPUSCULAR HGB CONC 31.2 g/dl (32.0-36.5); MEAN CORPUSCULAR VOLUME 94.1 fl (80.0-96.0); PLATELET COUNT, AUTOMATED 191 10^3/uL (150-450); RED BLOOD COUNT 3.03 10^6/uL (4.30-6.10); RED CELL DISTRIBUTION WIDTH 14.5 % (11.5-14.5); WHITE BLOOD COUNT 6.2 10^3/uL (4.0-10.0)
[2018-08-10 07:18] LABS: ANION GAP 4 MEQ/L (8-16); BLOOD UREA NITROGEN 18 MG/DL (7-18); C REACTIVE PROTEIN QUANTITATIV 5.08 MG/DL (0.00-0.30); CALCIUM LEVEL 9.4 MG/DL (8.8-10.2); CARBON DIOXIDE LEVEL 31 MEQ/L (21-32); CHLORIDE LEVEL 106 MEQ/L (98-107); GLOMERULAR FILTRATION RATE 34.2 (>49); GLUCOSE, FASTING 115 MG/DL (70-100); POTASSIUM SERUM 4.1 MEQ/L (3.5-5.1); SODIUM LEVEL 141 MEQ/L (136-145)
[2018-08-10 07:24] LABS: INR 1.91; PROTHROMBIN TIME 22.2 SECONDS (12.1-14.4)
[2018-08-10] MEDS: guaiFENesin ER 600 MG TAB PO ×2 (08:57→21:06)
[2018-08-10] MEDS: lamoTRIgine 100MG TAB PO ×2 (08:57→21:07)
[2018-08-10] MEDS: OLANZapine 10 MG TAB PO (08:57)
[2018-08-10] MEDS: ATORVASTATIN 10 MG TAB PO (08:57)
[2018-08-10] MEDS: clonazePAM 1 MG TAB PO ×3 (08:57→21:07)
[2018-08-10] MEDS: FERROUS GLUCONATE 324 MG TAB PO (08:57)
[2018-08-10] MEDS: NYSTATIN 100,000 UNITS/GM TOPICAL PWD 15 GM TOP ×2 (08:58→21:08)
[2018-08-10] MEDS: EUCERIN 120GM CREAM TOP ×3 (08:58→21:09)
[2018-08-10] MEDS: SENOKOT S TAB PO ×2 (08:58→21:07)
[2018-08-10] MEDS: LACTIC ACID 12% LOTION 225 GM BTL TOP ×2 (08:58→21:08)
[2018-08-10] MEDS: LITHIUM CARBONATE 150 MG CAP PO ×2 (08:58→21:07)
[2018-08-10] MEDS: OMEPRAZOLE 20 MG CAP PO (08:58)
[2018-08-10] MEDS: CARVedilol 3.125 MG TAB PO ×2 (08:59→21:06)
[2018-08-10] MEDS ORDERED: IRON SUCROSE 100MG 5ML VIAL (J1756 PER 1MG) IV (09:00)
[2018-08-10] MEDS: IRON SUCROSE 200 MG in NS 100 ML OVER 1 HR IV (10:22)
[2018-08-10] MEDS: D5W 1,000 ML IV (12:36)
[2018-08-10] MEDS: LURASIDONE HCL 40 MG TAB (LATUDA) PO (17:03)
[2018-08-10] MEDS: WARFARIN SOD 4 MG TAB PO (17:04)
[2018-08-10] MEDS: WARFARIN SOD 3 MG TAB PO (17:04)
[2018-08-10] MEDS: cefTRIAXone SOD 1 GM in D5W MINI-BAG PLUS 50 ML IV (21:03)
[2018-08-10] MEDS: TAMSULOSIN 0.4 MG CAP PO (21:06)
[2018-08-10] MEDS: MULTIVITAMINS/MINERALS THERAP 1 TAB PO (21:07)
[2018-08-10] MEDS: FINASTERIDE 5 MG TAB PO (21:07)
[2018-08-10] MEDS: AZITHROMYCIN INJ 500 MG, VIAL MATE ADAPTER 1 EACH in D5W 250 ML IV (22:01)
[2018-08-10] MEDS: FLUTICASONE PROP 0.05% NASAL SPRAY 16 GM (FLONASE) (22:50)
[2018-08-11] MEDS: IPRATROPIUM 0.5MG/ALBUTEROL 2.5MG INH SOL UD 3ML (DUONEB)(J7620) NEB ×2 (01:46→07:24)
[2018-08-11 06:14] LABS: ANION GAP 3 MEQ/L (8-16); BLOOD UREA NITROGEN 21 MG/DL (7-18); C REACTIVE PROTEIN QUANTITATIV 2.68 MG/DL (0.00-0.30); CALCIUM LEVEL 9.5 MG/DL (8.8-10.2); CARBON DIOXIDE LEVEL 31 MEQ/L (21-32); CHLORIDE LEVEL 111 MEQ/L (98-107); GLOMERULAR FILTRATION RATE 34.2 (>49); GLUCOSE, FASTING 115 MG/DL (70-100); POTASSIUM SERUM 4.8 MEQ/L (3.5-5.1); SODIUM LEVEL 145 MEQ/L (136-145)
[2018-08-11 08:03] LABS: HEMATOCRIT 32.1 % (42.0-52.0); MEAN CORPUSCULAR HEMOGLOBIN 30.5 pg (27.0-33.0); MEAN CORPUSCULAR HGB CONC 31.2 g/dl (32.0-36.5); MEAN CORPUSCULAR VOLUME 97.9 fl (80.0-96.0); PLATELET COUNT, AUTOMATED 197 10^3/uL (150-450); RED BLOOD COUNT 3.28 10^6/uL (4.30-6.10); RED CELL DISTRIBUTION WIDTH 14.5 % (11.5-14.5); WHITE BLOOD COUNT 5.9 10^3/uL (4.0-10.0)
[2018-08-11] MEDS: OLANZapine 10 MG TAB PO (08:22)
[2018-08-11] MEDS: ATORVASTATIN 10 MG TAB PO (08:22)
[2018-08-11] MEDS: LACTIC ACID 12% LOTION 225 GM BTL TOP (08:23)
[2018-08-11] MEDS: lamoTRIgine 100MG TAB PO (08:23)
[2018-08-11] MEDS: LITHIUM CARBONATE 150 MG CAP PO (08:23)
[2018-08-11] MEDS: guaiFENesin ER 600 MG TAB PO (08:23)
[2018-08-11] MEDS: CARVedilol 3.125 MG TAB PO (08:23)
[2018-08-11] MEDS: OMEPRAZOLE 20 MG CAP PO (08:23)
[2018-08-11] MEDS: CALCITRIOL 0.25 MCG CAP (S0169) PO (08:23)
[2018-08-11] MEDS: clonazePAM 1 MG TAB PO (08:23)
[2018-08-11] MEDS: FERROUS GLUCONATE 324 MG TAB PO (08:23)
[2018-08-11] MEDS: EUCERIN 120GM CREAM TOP (08:24)
[2018-08-11] MEDS: SENOKOT S TAB PO (08:24)
[2018-08-11] MEDS: NYSTATIN 100,000 UNITS/GM TOPICAL PWD 15 GM TOP (08:24)
[2018-08-11] MEDS: IRON SUCROSE 200 MG in NS 100 ML OVER 1 HR IV (10:00)
== END 2018-08-11 13:29 | disposition home or self-care (01) | DRG 682 ==
LOC: M PCU 08-09 01:11 → M ED 15:16 → M ED INP 20:19 → M MSPAV 23:36
DX: N17.9 Acute kidney failure, unspecified (principal); J15.9 Unspecified bacterial pneumonia; E87.0 Hyperosmolality and hypernatremia; J20.9 Acute bronchitis, unspecified; B97.89 Other viral agents as the cause of diseases classified elsewhere; K21.9 Gastro-esophageal reflux disease without esophagitis; D50.9 Iron deficiency anemia, unspecified; G40.909 Epilepsy, unspecified, not intractable, without status epilepticus; F41.9 Anxiety disorder, unspecified; I12.9 Hypertensive chronic kidney disease with stage 1 through stage 4 chronic kidney disease, or unspecified chronic kidney disease; D72.829 Elevated white blood cell count, unspecified; R33.9 Retention of urine, unspecified; N18.3 Chronic kidney disease, stage 3 (moderate); Z86.718 Personal history of other venous thrombosis and embolism; E16.2 Hypoglycemia, unspecified; F25.9 Schizoaffective disorder, unspecified; F79 Unspecified intellectual disabilities; Z79.01 Long term (current) use of anticoagulants; Z79.899 Other long term (current) drug therapy; E11.65 Type 2 diabetes mellitus with hyperglycemia; Z88.6 Allergy status to analgesic agent; D63.1 Anemia in chronic kidney disease

== ENCOUNTER → 2018-08-25 | Outpatient (REF) | payer MEDICARE, MEDICAID ==
[~2018-08-25] MED LIST changes: +CEFD300CAP PO; +DOXY100T PO; +ELIQ2.5T PO; +HALO1TA PO; +HALO5TA PO; -PROM25TA PO; +PROM25TA12 PO; +ZYPR5TAB2 PO
[2018-08-25 13:31] LABS: APPEARANCE, URINE CLEAR (CLEAR); BACTERIA, URINE AUTO NEGATIVE (NEGATIVE); BILIRUBIN, URINE AUTO NEGATIVE (NEGATIVE); BLOOD, URINE BLOOD NEGATIVE (NEGATIVE); COLOR, URINE STRAW (YELLOW); GLUCOSE, URINE (UA) AUTO NEGATIVE (NEGATIVE); KETONE, URINE AUTO NEGATIVE (NEGATIVE); LEUKOCYTE ESTERASE, URINE AUTO NEGATIVE (NEGATIVE); NITRITE, URINE AUTO NEGATIVE (NEGATIVE); PROTEIN, URINE AUTO NEGATIVE (NEGATIVE); RBC, URINE AUTO 0 /HPF (0-3); SPECIFIC GRAVITY URINE AUTO 1.004 (1.002-1.035); SQUAMOUS EPITHELIAL CELL UR AU 0 /HPF (0-6); UROBILINOGEN, URINE AUTO 0.2 mg/dL (0.0-2.0); WBC, URINE AUTO 1 /HPF (0-3)
== END ==
LOC: M SMT 13:08
PROVIDERS: ATTEND Nurse Practitioner Women's Health
DX: N28.89 Other specified disorders of kidney and ureter (principal)
CPT/HCPCS: 51798; 81001; 87086; G0463

== ENCOUNTER 2018-10-10 16:49 | Inpatient (IN) | payer MEDICARE, MEDICAID ==
[~2018-10-10] VITALS: Ht 167.6 cm; Wt 90.7 kg
[~2018-10-10 16:49] MED LIST changes: -ELIQ2.5T PO; -HALO1TA PO; -HALO5TA PO; -ZYPR5TAB2 PO
[2018-10-10] MEDS ORDERED: NS 1,000 ML IV ONE (18:00)
[2018-10-10 19:00] LABS: INFLUENZA A AMPLIFICATION NEGATIVE (NEGATIVE); INFLUENZA B AMPLIFICATION NEGATIVE (NEGATIVE)
[2018-10-10 19:02] LABS: BASO % 0.1 % (0.0-1.0); HEMATOCRIT 23.3 % (42.0-52.0); HEMOGLOBIN 7.2 g/dl (13.5-17.5); LYMPH # 0.6 10^3/uL (1.5-4.5); LYMPH % 5.4 % (24.0-44.0); MEAN CORPUSCULAR HEMOGLOBIN 30.3 pg (27.0-33.0); MEAN CORPUSCULAR HGB CONC 30.9 g/dl (32.0-36.5); MEAN CORPUSCULAR VOLUME 97.9 fl (80.0-96.0); MONO # 0.5 10^3/uL (0.0-0.8); MONO % 4.4 % (0.0-5.0); NEUTROPHILS # 9.9 10^3/uL (1.8-7.7); NEUTROPHILS % 88.7 % (36.0-66.0); PLATELET COUNT, AUTOMATED 191 10^3/uL (150-450); RED BLOOD COUNT 2.38 10^6/uL (4.30-6.10); WHITE BLOOD COUNT 11.2 10^3/uL (4.0-10.0)
[2018-10-10 19:15] LABS: MONO SCRN NEGATIVE (NEGATIVE)
[2018-10-10 19:23] LABS: ALT/SGPT 26 U/L (12-78); BILIRUBIN,DIRECT 0.1 MG/DL (0.0-0.2); BILIRUBIN,TOTAL 0.4 MG/DL (0.2-1.0); BLOOD UREA NITROGEN 38 MG/DL (7-18); CALCIUM LEVEL 8.6 MG/DL (8.8-10.2); CARBON DIOXIDE LEVEL 28 MEQ/L (21-32); CHLORIDE LEVEL 103 MEQ/L (98-107); CREATININE FOR GFR 2.75 MG/DL (0.70-1.30); GLOMERULAR FILTRATION RATE 25.1 (>49); GLUCOSE, FASTING 151 MG/DL (70-100); POTASSIUM SERUM 4.4 MEQ/L (3.5-5.1); SODIUM LEVEL 138 MEQ/L (136-145)
[2018-10-10] MEDS ORDERED: ZYPR5TAB2 PO (19:26)
[2018-10-10] MEDS ORDERED: HALO5TA PO (19:26)
[2018-10-10] MEDS ORDERED: ELIQ2.5T PO ×2 (19:26→19:30)
[2018-10-10] MEDS ORDERED: ZYPR10TA PO (19:26)
[2018-10-10] MEDS ORDERED: HALO1TA PO (19:26)
[2018-10-10] MEDS: GASTROGRAFIN SOLUTION 30ML PO SCH ×2 (19:56→20:30)
[2018-10-10] MEDS ORDERED: ACETAMINOPHEN 325 MG TAB PO ONE (22:00)
--- NOTE | 2018-10-10 22:14 | REPVR ---
EXAM: CT Abdomen and Pelvis Without Contrast EXAM DATE/TIME: 10/10/2018 9:47 PM CLINICAL HISTORY: 63 years old, male; Pain; Abdominal pain; Localized; Left lower quadrant (llq); Patient HX: Patient has MR unable to follow breathing instructions; Additional info: SOB, llq pain, fever, MR TECHNIQUE: Axial computed tomography images of the abdomen and pelvis without contrast. All CT scans at this facility use at least one of these dose optimization techniques: automated exposure control; mA and/or kV adjustment per patient size (includes targeted exams where dose is matched to clinical indication); or iterative reconstruction. Coronal and sagittal reformatted images were created and reviewed. COMPARISON: CT ABD PELVIS W/O CONTRAST 10/31/2017 11:50 PM FINDINGS: Lower thorax: Cardiomegaly. Small sliding hiatal hernia. ABDOMEN: Liver: Normal. No mass. Gallbladder and bile ducts: Normal. No calcified stones. No ductal dilation. Pancreas: Mildly edematous appearance of the pancreas, findings may indicate the presence of mild pancreatitis. Correlation with serum amylase and lipase suggested. Spleen: Normal. No splenomegaly. Adrenals: Normal. No mass. Kidneys and ureters: Low density lesion in the anterior aspect of the right kidney measuring 2.6 x 2.2 cm may represent a cyst although correlation with ultrasound suggested in order to exclude a solid process. Stomach and bowel: Diffuse thickening of the gastric wall likely related to incomplete distention. Clinical correlation to exclude infiltrative disease suggested. There is increased feces throughout the colon consistent with constipation. Appendix: No evidence of appendicitis. PELVIS: Bladder: Unremarkable as visualized. Reproductive: Unremarkable as visualized. ABDOMEN and PELVIS: Intraperitoneal space: Normal. No free air. No significant fluid collection. Bones/joints: The spine demonstrates moderate degenerative changes. Soft tissues: Note is made of dependent anasarca. Vasculature: The aorta demonstrates mild atherosclerotic calcification. Lymph nodes: Normal. No enlarged lymph nodes. IMPRESSION: 1. Mildly edematous appearance of the pancreas, findings may indicate the presence of mild pancreatitis. Correlation with serum amylase and lipase suggested. 2. Diffuse thickening of the gastric wall likely related to incomplete distention. Clinical correlation to exclude infiltrative disease suggested. 3. Low density lesion in the anterior aspect of the right kidney measuring 2.6 x 2.2 cm may represent a cyst although correlation with ultrasound suggested in order to exclude a solid process. 4. There is increased feces throughout the colon consistent with constipation. Electronically signed by: Inderjit Leary On 10/10/2018 22:13:37 PM
--- NOTE | 2018-10-10 22:16 | REPVR ---
EXAM: CT Chest Without Contrast EXAM DATE/TIME: 10/10/2018 9:47 PM CLINICAL HISTORY: 63 years old, male; Signs and symptoms; Fever and shortness of breath; Patient HX: PT unable to follow breathing instructions; Additional info: SOB, llq pain, fever, MR TECHNIQUE: Axial computed tomography images of the chest without intravenous contrast. All CT scans at this facility use at least one of these dose optimization techniques: automated exposure control; mA and/or kV adjustment per patient size (includes targeted exams where dose is matched to clinical indication); or iterative reconstruction. Coronal and sagittal reformatted images were created and reviewed. COMPARISON: CT Chest without contrast 08/08/2018 11:29 PM FINDINGS: Lungs: Compressive atelectasis both lower lung zones, right greater than left likely positional. Lungs otherwise clear. Pleural space: Normal. No pneumothorax. No pleural effusion. Heart: Normal. No cardiomegaly. No pericardial effusion. Mediastinum: Small sliding hiatal hernia. Pulmonary arteries: Prominent central pulmonary arteries may indicate the presence of pulmonary arterial hypertension. Aorta: Normal. No aortic aneurysm. Lymph nodes: Unremarkable. No enlarged lymph nodes. Bones/joints: Multiple old rib fractures on the left. Soft tissues: Unremarkable. IMPRESSION: No acute findings. Electronically signed by: Inderjit Leary On 10/10/2018 22:16:16 PM
[2018-10-10 23:06] LABS: APPEARANCE, URINE CLEAR (CLEAR); BACTERIA, URINE AUTO NEGATIVE (NEGATIVE); BILIRUBIN, URINE AUTO NEGATIVE (NEGATIVE); BLOOD, URINE BLOOD NEGATIVE (NEGATIVE); COLOR, URINE STRAW (YELLOW); GLUCOSE, URINE (UA) AUTO NEGATIVE (NEGATIVE); KETONE, URINE AUTO NEGATIVE (NEGATIVE); LEUKOCYTE ESTERASE, URINE AUTO NEGATIVE (NEGATIVE); NITRITE, URINE AUTO NEGATIVE (NEGATIVE); PROTEIN, URINE AUTO NEGATIVE (NEGATIVE); RBC, URINE AUTO 2 /HPF (0-3); SPECIFIC GRAVITY URINE AUTO 1.003 (1.002-1.035); SQUAMOUS EPITHELIAL CELL UR AU 0 /HPF (0-6); UROBILINOGEN, URINE AUTO 0.2 mg/dL (0.0-2.0); WBC, URINE AUTO 0 /HPF (0-3)
[2018-10-10 23:24] LABS: LIPASE 43 U/L (73-393)
[2018-10-11] MEDS ORDERED: NS 1,000 ML IV SCH (00:21)
[2018-10-11 00:44] LABS: ERYTHROCYTE SEDIMENTATION RATE 107 mm/hr (0-20)
[2018-10-11] MEDS ORDERED: HALO5TA PO (00:55)
[2018-10-11] MEDS ORDERED: FINA5TAB2 PO (00:55)
[2018-10-11] MEDS ORDERED: VANCOMYCIN HCL 1,000 MG, VIAL MATE ADAPTER 1 EACH in D5W 250 ML IV ONE (01:00)
[2018-10-11] MEDS: ACETAMINOPHEN TAB 650MG DOSE (2X325MG) PO PRN ×2 (02:56→21:22)
[2018-10-11 02:58] VITALS: BP 115/68
[2018-10-11 05:11] LABS: BASO % 0.1 % (0.0-1.0); EOS % 0.1 % (0.0-3.0); HEMATOCRIT 21.9 % (42.0-52.0); LYMPH # 0.7 10^3/uL (1.5-4.5); LYMPH % 8.7 % (24.0-44.0); MEAN CORPUSCULAR HEMOGLOBIN 29.6 pg (27.0-33.0); MEAN CORPUSCULAR HGB CONC 30.1 g/dl (32.0-36.5); MEAN CORPUSCULAR VOLUME 98.2 fl (80.0-96.0); MONO # 0.4 10^3/uL (0.0-0.8); MONO % 5.6 % (0.0-5.0); NEUTROPHILS # 6.7 10^3/uL (1.8-7.7); NEUTROPHILS % 84.9 % (36.0-66.0); PLATELET COUNT, AUTOMATED 175 10^3/uL (150-450); RED BLOOD COUNT 2.23 10^6/uL (4.30-6.10); WHITE BLOOD COUNT 7.9 10^3/uL (4.0-10.0)
--- NOTE | 2018-10-11 05:15 | PHACANCOPD ---
PHARMACY VANCOMYCIN DOSING Pt Demographics Demographics Patient Age:63 , Weight:90.700 , Gender: male Adjusted Body Weight Date: 10/11/18, Adjusted Body Weight: [74.5] Kg Vancomycin Vancomycin indication: CELLULITIS Vancomycin Target Ranges: 10-20 mcg/ml Vancomycin Load Y/N: No Load Dose Date Time Vancomycin Load Dose: Date: Time: Vancomycin Dose Date: 10/11/18. Current Vancomycin Dose: [1 GM Q24H] Intermittent Dosing?: No Labs Labs Laboratory Tests 10/10/18 18:06 Red Blood Count 2.38 L, Mean Corpuscular Volume 97.9 H, Mean Corpuscular Hemoglobin 30.3, Mean Corpuscular Hemoglobin Concent 30.9 L, Red Cell Distribution Width 14.8 H, Neutrophils (%) (Auto) 88.7 H, Lymphocytes (%) (Auto) 5.4 L, Monocytes (%) (Auto) 4.4, Eosinophils (%) (Auto) 0.0, Basophils (%) (Auto) 0.1, Neutrophils # (Auto) 9.9 H, Lymphocytes # (Auto) 0.6 L, Monocytes # (Auto) 0.5, Eosinophils # (Auto) 0.0, Basophils # (Auto) 0.0 Micro Microbiology 10/10/18 Blood Culture, Received Pending 10/10/18 Blood Culture, Received Pending 10/10/18 Group A Streptococcus Screen ([facility]), Received Pending 10/10/18 Urine Culture, Received Pending Creatinine Clearance Date:10/11/18. Creatinine Clearance: [29.4].CALCULATED Pending Labs Vancomycin trough due Assessment and Plan Maintaining Current Dose?: Yes Reason for dose change: No Dose Change Pharmacist Note Pharmacist Note Date: 10/11/18. Pharmacist note:rx.cellulitis with Pip/Tazo 2.25 IV Q8h plus Vancomycin per Pharmacy consult. SCR=2.75,CRCL=29.4.Allergy:NSAIDS, Vancomycin 1 GM 10/11@03,then 1 gram IV Q24 hours to begin 10/11@2100. First trough scheduled prior to the third dose ()-will continue to follow [facility] Oct 11, 2018 05:15
[2018-10-11 05:18] LABS: HEMOGLOBIN 6.6 g/dl (13.5-17.5)
[2018-10-11 05:28] LABS: CALCIUM LEVEL 8.4 MG/DL (8.8-10.2); CREATININE FOR GFR 2.64 MG/DL (0.70-1.30); GLOMERULAR FILTRATION RATE 26.3 (>49); POTASSIUM SERUM 4.3 MEQ/L (3.5-5.1)
[2018-10-11 07:05] LABS: HEMATOCRIT 23.3 % (42.0-52.0); HEMOGLOBIN 7.1 g/dl (13.5-17.5); MEAN CORPUSCULAR HEMOGLOBIN 30.3 pg (27.0-33.0); MEAN CORPUSCULAR HGB CONC 30.5 g/dl (32.0-36.5); MEAN CORPUSCULAR VOLUME 99.6 fl (80.0-96.0); PLATELET COUNT, AUTOMATED 153 10^3/uL (150-450); RED BLOOD COUNT 2.34 10^6/uL (4.30-6.10); WHITE BLOOD COUNT 8.4 10^3/uL (4.0-10.0)
--- NOTE | 2018-10-11 07:06 | HPE ---
DATE OF ADMISSION: 10/11/2018 ATTENDING PHYSICIAN: Ara Dillard MD CHIEF COMPLAINT: Fever. HISTORY OF PRESENT ILLNESS: The patient is a 63-year-old male came from [facility] with complaint of fever. Since patient has mental retardation and he is very confused, he is not able to provide any information. [facility] staff provided history. Per [facility] staff, patient was doing fine until today. He was found to have a temperature of 103. Also he complained of some difficulty breathing, and also he was found to have worsening redness in his right lower extremity. So, he was sent her for full evaluation. In the ER, he was found to have temperature up to 102.9 and also his initial workup indicated he has worsening kidney function and worsening chronic anemia. His chest and abdominal CT were normal. Medicine service called for admission. REVIEW OF SYSTEMS: Not available due to mental retardation as well as confusion. PAST MEDICAL HISTORY: 1. Mental retardation. 2. Schizoaffective disorder. 3. Hypertension. 4. Chronic anemia. 5. Chronic kidney disease (CKD), stage III. 6. History of deep venous thrombosis (DVT). On Eliquis. 7. Acid reflux. PAST SURGICAL HISTORY: Right lower extremity surgery. ALLERGIES: No known drug allergies. MEDICATIONS: Reviewed. SOCIAL HISTORY: No alcohol abuse. No illicit drug abuse. No tobacco use. He is a resident in [facility]. He is FULL CODE. PHYSICAL EXAMINATION: VITALS: Temperature 102.9, heart rate 123, respiratory rate 20, blood pressure 107/56 and oxygen saturation 95% on room air. GENERAL: He is awake, alert, but he is very confused. He does not follow any commands. He does not answer any questoins. HEENT: Atraumatic. Pupils equal, round and reactive to light. No jaundice. Extraocular muscles intact. Ears, nose, throat: Normal. Mouth: Mucous moist. Neck: No JVD. No bruits. LUNGS: Clear. No wheezing, no crackles. HEART: S1, S2, regular, but tachycardia. ABDOMEN: Soft, bowel sounds positive. Nontender. LOWER EXTREMITIES: Extensive redness in his right lower extremities below the knee, up the ankle, but there is no evidence of abscess. SKIN: No other rashes. NEUROLOGICAL: Nonfocal. PSYCHOLOGICAL: Demented, but no acute psychosis. DIAGNOSTICS AND LABS: CBC and differential: WBC 11.2, hemoglobin and hematocrit 7.2/23.3, platelets 195. Sodium 130, potassium 4.4, chloride 102, bicarbonate 28, BUN 28, creatinine 2.75. UA is normal. Influenza screen was normal. Abdominal as well as chest CT was unremarkable. IMPRESSION: 1. Severe sepsis. 2. Right lower extremity cellulitis. 3. Acute on CKD, stage III. 4. Acute on chronic anemia. 5. History of mental retardation. 6. History of DVT, on Eliquis. PLAN: Patient will be admitted to the PCU for close monitoring. Will treat him with IV fluid and antibiotics including Zosyn and vancomycin since he has history of Methicillin-resistant Staphylococcus aureus (MRSA). Will follow the cultures. Will continue most regular medications including Eliquis. Will followup his hemoglobin and hematocrit. May need a transfusion if his hemoglobin and hematocrit is done more. THAO
[2018-10-11] MEDS ORDERED: NS 2,000 ML IV ONE (08:30)
[2018-10-11] MEDS ORDERED: ACETAMINOPHEN TAB 650MG DOSE (2X325MG) PO ONE (08:30)
[2018-10-11] MEDS: HALOPERIDOL 5 MG TAB PO SCH ×2 (08:53→20:35)
[2018-10-11] MEDS: EUCERIN 120GM CREAM TOP SCH ×4 (08:53→20:40)
[2018-10-11] MEDS: LACTIC ACID 12% LOTION 225 GM BTL TOP SCH ×3 (08:53→20:40)
[2018-10-11] MEDS: LITHIUM CARBONATE 150 MG CAP PO SCH ×2 (08:54→20:32)
[2018-10-11] MEDS: NYSTATIN 100,000 UNITS/GM TOPICAL PWD 15 GM TOP SCH ×3 (08:54→20:41)
[2018-10-11] MEDS: clonazePAM 1 MG TAB PO SCH ×3 (08:54→20:33)
[2018-10-11] MEDS: FERROUS GLUCONATE 324 MG TAB PO SCH (08:54)
[2018-10-11] MEDS: BENZTROPINE 1 MG TAB PO SCH ×2 (08:55→20:33)
[2018-10-11] MEDS: APIXABAN 2.5 MG TAB (ELIQUIS) PO SCH ×2 (08:55→20:32)
[2018-10-11] MEDS: lamoTRIgine 100MG TAB PO SCH ×2 (08:55→20:32)
[2018-10-11] MEDS: OMEPRAZOLE 20 MG CAP PO SCH (08:55)
[2018-10-11] MEDS: ATORVASTATIN 10 MG TAB PO SCH (08:55)
[2018-10-11] MEDS: DOCUSATE SODIUM 100 MG CAP PO SCH ×2 (08:56→20:32)
[2018-10-11] MEDS: OLANZapine 5 MG TAB PO SCH ×3 (08:56→16:34)
[2018-10-11] MEDS: PIPERACILLIN/TAZOBACTAM SOD 2.25 GM in D5W MINI-BAG PLUS 50 ML IV SCH ×5 (08:57→23:41)
--- NOTE | 2018-10-11 08:58 | REP ---
Renal ultrasound for renal failure: The right kidney measures 10.0 x 4.5 x 4.6 cm. The left kidney measures 9.2 x 4.4 x 5.1 cm. The kidneys are in the low normal size range. Renal cortical echogenicity is mildly echogenic bilaterally, compatible with medical renal disease. There is no hydronephrosis on the right or the left. No renal calculi are identified. No renal solid masses are identified. There are two right renal cyst in the lower pole, one measuring up to 2.7 cm in diameter and the other measuring up to 1.2 cm in diameter. These appear to be Bosniak type 1 simple cysts. There is a single cyst in the lower pole left kidney measuring up to 1.2 cm. This appears to be a Bosniak type 1 simple cyst. Impression: Mild bilateral renal cortical echogenicity. The kidneys are in the low normal size range. There are bilateral renal cortical simple cysts. No hydronephrosis, calculus or solid mass. Electronically Signed by Mikal Pina MD 10/11/2018 08:49 A
[2018-10-11] MEDS ORDERED: HALOPERIDOL 5 MG TAB PO PRN (09:00)
[2018-10-11] MEDS: CARVedilol 6.25 MG TAB PO SCH ×2 (09:02→20:35)
[2018-10-11 09:42] LABS: C REACTIVE PROTEIN QUANTITATIV 18.8 MG/DL (0.00-0.30)
[2018-10-11] MEDS ORDERED: diphenhydrAMINE 25 MG CAP PO ONE (09:45)
[2018-10-11 10:42] LABS: ERYTHROCYTE SEDIMENTATION RATE > 140 mm/hr (0-20)
--- NOTE | 2018-10-11 10:45 | IPNPDOC ---
Date Seen The patient was seen on 10/11/18. Progress Note SUBJECTIVE: Pt c/o rigors, fever, chills, and rightleg pain. no cough, no sob. no dizziness, lightheadedness. OBJECTIVE: PHYSICAL EXAMINATION: VITALS: PLS SEE BELOW GENERAL: He is awake, alert, but he is very confused. He does not follow any commands. He does not answer any questoins. HEENT: Atraumatic. Pupils equal, round and reactive to light. No jaundice. Extraocular muscles intact. Ears, nose, throat: Normal. Mouth: Mucous moist. Neck: No JVD. No bruits. LUNGS: Clear. No wheezing, no crackles. HEART: S1, S2, regular, but tachycardia. ABDOMEN: Soft, bowel sounds positive. Nontender. LOWER EXTREMITIES: Extensive redness in his right lower extremities below the knee, up the ankle, but there is no evidence of abscess. SKIN: No other rashes. NEUROLOGICAL: Nonfocal. PSYCHOLOGICAL: Demented, but no acute psychosis. DIAGNOSTICS AND LABS:PLS SEE BELOW IMAGING STUDIES: Renal ultrasound for renal failure: The right kidney measures 10.0 x 4.5 x 4.6 cm. The left kidney measures 9.2 x 4.4 x 5.1 cm. The kidneys are in the low normal size range. Renal cortical echogenicity is mildly echogenic bilaterally, compatible with medical renal disease. There is no hydronephrosis on the right or the left. No renal calculi are identified. No renal solid masses are identified. There are two right renal cyst in the lower pole, one measuring up to 2.7 cm in diameter and the other measuring up to 1.2 cm in diameter. These appear to be Bosniak type 1 simple cysts. There is a single cyst in the lower pole left kidney measuring up to 1.2 cm. This appears to be a Bosniak type 1 simple cyst. Impression: Mild bilateral renal cortical echogenicity. The kidneys are in the low normal size range. There are bilateral renal cortical simple cysts. No hydronephrosis, calculus or solid mass. Electronically Signed by Mikal Pina MD 10/11/2018 08:49 A DD: Mikal Pina MD 10/11/18 0846 ASSESSMENT AND PLAN:The patient is a 63-year-old male came from [facility] with complaint of fever. Since patient has mental retardation and he is very confused, he is not able to provide any information. [facility] staff provided history. Per [facility] staff, patient was doing fine until today. He was found to have a temperature of 103. Also he complained of some difficulty breathing, and also he was found to have worsening redness in his right lower extremity. So, he was sent her for full evaluation. In the ER, he was found to have temperature up to 102.9 and also his initial workup indicated he has worsening kidney function and worsening chronic anemia. His chest CT was abnormal, which was not significant. Medicine service called for admission. Severe sepsis/ Right lower extremity, cellulitis. atient will be admitted to the PCU for close monitoring. Will treat him with IV fluid and antibiotic including Zosyn and vancomycin since he has history of Methicillin-resistant Staphylococcus aureus (MRSA). Will follow the cultures. Acute onset CKD, stage III. RENAL u/s no solid masses. avoid nephrotoxins, renally dose meds, strict i/o. ivfluids for sepsis Acute on chronic anemia. iron studies, retic count, stool for blood. hgb 10 as goal. History of mental retardation/ schizophrenia. hcp contacted History of DVT, on Eliquis. VS, I&O, 24H, Fishbone Vital Signs/I&O Vital Signs Date Time Temp Pulse Resp B/P (MAP) Pulse Ox O2 Delivery O2 Flow Rate FiO2 10/11/18 09:02 125 120/70 10/11/18 08:00 100.3 22 94 10/11/18 01:09 Room Air I&O- Last 24 Hours up to 6 AM 10/11/18 06:00 Intake Total 30 ml Output Total 700 ml Balance -670 ml Laboratory Data 24H LABS Laboratory Tests 2 10/10/18 18:06: Immature Granulocyte % (Auto) 1.4, White Blood Count 11.2H, Red Blood Count 2.38L, Hemoglobin 7.2L, Hematocrit 23.3L, Mean Corpuscular Volume 97.9H, Mean Corpuscular Hemoglobin 30.3, Mean Corpuscular Hemoglobin Concent 30.9L, Red Cell Distribution Width 14.8H, Platelet Count 191, Neutrophils (%) (Auto) 88.7H, Lymphocytes (%) (Auto) 5.4L, Monocytes (%) (Auto) 4.4, Eosinophils (%) (Auto) 0.0, Basophils (%) (Auto) 0.1, Neutrophils # (Auto) 9.9H, Lymphocytes # (Auto) 0.6L, Monocytes # (Auto) 0.5, Eosinophils # (Auto) 0.0, Basophils # (Auto) 0.0, Nucleated Red Blood Cells % (auto) 0.0, Erythrocyte Sedimentation Rate 107H, Anion Gap 7L, Glomerular Filtration Rate 25.1L, Calcium Level 8.6L, Aspartate Amino Transf (AST/SGOT) 31, Alanine Aminotransferase (ALT/SGPT) 26, Alkaline Phosphatase 115, Total Bilirubin 0.4, Direct Bilirubin 0.1, C-Reactive Protein, Quantitative 15.60H, Total Protein 6.0L, Albumin 3.0L, Albumin/Globulin Ratio 1. 00, Lipase 43L, Monoscreen NEGATIVE 10/10/18 18:07: Urine Appearance CLEAR, Urine Color STRAW, Urine pH 6.0, Urine Specific Streeter 1.003, Urine Protein NEGATIVE, Urine Glucose (UA) NEGATIVE, Urine Ketones NEGATIVE, Urine Urobilinogen 0.2, Urine Bilirubin NEGATIVE, Urine Leukocyte Esterase NEGATIVE, Urine Blood NEGATIVE, Urine Nitrite NEGATIVE, Urine WBC (Auto) 0, Urine RBC (Auto) 2, Urine Hyaline Casts (Auto) 0, Urine Bacteria (Auto) NEGATIVE, Urine Squamous Epithelial Cells 0, Urine Sperm (Auto) , Lactic Acid Level 1.4, Influenza Type A (RT-PCR) NEGATIVE, Influenza Type B (RT-PCR) NEGATIVE, Respiratory Syncytial Virus (RT-PCR NEGATIVE 10/11/18 04:22: Immature Granulocyte % (Auto) 0.6, White Blood Count 7.9, Red Blood Count 2.23L, Hemoglobin 6.6*L, Hematocrit 21.9L, Mean Corpuscular Volume 98.2H, Mean Corpuscular Hemoglobin 29.6, Mean Corpuscular Hemoglobin Concent 30.1L, Red Cell Distribution Width 15.0H, Platelet Count 175, Neutrophils (%) (Auto) 84.9H, Lymphocytes (%) (Auto) 8.7L, Monocytes (%) (Auto) 5.6H, Eosinophils (%) (Auto) 0.1, Basophils (%) (Auto) 0.1, Neutrophils # (Auto) 6.7, Lymphocytes # (Auto) 0.7L, Monocytes # (Auto) 0.4, Eosinophils # (Auto) 0.0, Basophils # (Auto) 0.0, Nucleated Red Blood Cells % (auto) 0.0, Anion Gap 6L, Glomerular Filtration Rate 26.3L, Calcium Level 8.4L, C-Reactive Protein, Quantitative 18.80H, Blood Urea Nitrogen 34H, Creatinine 2.64H, Sodium Level 140, Potassium Level 4.3, Chloride Level 106, Carbon Dioxide Level 28 10/11/18 06:45: Nucleated Red Blood Cells % (auto) 0.0 CBC/BMP Laboratory Tests 10/10/18 18:06 Red Blood Count 2.38 L, Mean Corpuscular Volume 97.9 H, Mean Corpuscular Hemoglobin 30.3, Mean Corpuscular Hemoglobin Concent 30.9 L, Red Cell Distribution Width 14.8 H, Neutrophils (%) (Auto) 88.7 H, Lymphocytes (%) (Auto) 5.4 L, Monocytes (%) (Auto) 4.4, Eosinophils (%) (Auto) 0.0, Basophils (%) (Auto) 0.1, Neutrophils # (Auto) 9.9 H, Lymphocytes # (Auto) 0.6 L, Monocytes # (Auto) 0.5, Eosinophils # (Auto) 0.0, Basophils # (Auto) 0.0 10/11/18 04:22 Red Blood Count 2.23 L, Mean Corpuscular Volume 98.2 H, Mean Corpuscular Hemoglobin 29.6, Mean Corpuscular Hemoglobin Concent 30.1 L, Red Cell Distribution Width 15.0 H, Neutrophils (%) (Auto) 84.9 H, Lymphocytes (%) (Auto) 8.7 L, Monocytes (%) (Auto) 5.6 H, Eosinophils (%) (Auto) 0.1, Basophils (%) (Auto) 0.1, Neutrophils # (Auto) 6.7, Lymphocytes # (Auto) 0.7 L, Monocytes # (Auto) 0.4, Eosinophils # (Auto) 0.0, Basophils # (Auto) 0.0, Calcium Level 8.4 L 10/11/18 06:45 Red Blood Count 2.34 L, Mean Corpuscular Volume 99.6 H, Mean Corpuscular Hemoglobin 30.3, Mean Corpuscular Hemoglobin Concent 30.5 L, Red Cell Distribution Width 14.9 H Microbiology Microbiology 10/10/18 Blood Culture, Received Pending 10/10/18 Blood Culture, Received Pending 10/10/18 Group A Streptococcus Screen (CAROL), Received Pending 10/10/18 Respiratory Virus Panel (PCR) (CAROL), Received Pending 10/10/18 Urine Culture, Received Pending NINI PICKARD MD Oct 11, 2018 10:39
[2018-10-11 12:00] VITALS: BP 100/53
[2018-10-11 15:06] LABS: HEMATOCRIT 29.6 % (42.0-52.0); MEAN CORPUSCULAR HEMOGLOBIN 29.8 pg (27.0-33.0); MEAN CORPUSCULAR HGB CONC 30.7 g/dl (32.0-36.5); PLATELET COUNT, AUTOMATED 158 10^3/uL (150-450); RED BLOOD COUNT 3.05 10^6/uL (4.30-6.10); WHITE BLOOD COUNT 8.2 10^3/uL (4.0-10.0)
[2018-10-11 16:00] VITALS: BP 110/64
[2018-10-11 16:25] LABS: HEMOGLOBIN 9.1 g/dl (13.5-17.5)
[2018-10-11 20:00] VITALS: BP 121/75
[2018-10-11] MEDS: FLUTICASONE PROP 0.05% NASAL SPRAY 16 GM (FLONASE) SCH (20:31)
[2018-10-11] MEDS: MULTIVITAMINS/MINERALS THERAP 1 TAB PO SCH (20:33)
[2018-10-11] MEDS: FINASTERIDE 5 MG TAB PO SCH (20:33)
[2018-10-11] MEDS: OLANZapine 10 MG TAB PO SCH (20:33)
[2018-10-11] MEDS: VANCOMYCIN HCL 1,000 MG, VIAL MATE ADAPTER 1 EACH in D5W 250 ML IV SCH (20:45)
[2018-10-11 21:15] LABS: HEMOGLOBIN 9.9 g/dl (13.5-17.5); MEAN CORPUSCULAR HEMOGLOBIN 30.5 pg (27.0-33.0); MEAN CORPUSCULAR HGB CONC 30.9 g/dl (32.0-36.5); MEAN CORPUSCULAR VOLUME 98.5 fl (80.0-96.0); PLATELET COUNT, AUTOMATED 188 10^3/uL (150-450); RED BLOOD COUNT 3.25 10^6/uL (4.30-6.10); WHITE BLOOD COUNT 9.2 10^3/uL (4.0-10.0)
[2018-10-12] VITALS (7 sets, daily range): BP systolic 112–156; BP diastolic 77–89
[2018-10-12] MEDS: ACETAMINOPHEN TAB 650MG DOSE (2X325MG) PO PRN ×2 (01:28→13:07)
[2018-10-12] MEDS: diphenhydrAMINE 25 MG CAP PO PRN (03:14)
[2018-10-12 04:50] LABS: BASO % 0.4 % (0.0-1.0); EOS # 0.4 10^3/uL (0.0-0.50); EOS % 4.4 % (0.0-3.0); HEMATOCRIT 29.3 % (42.0-52.0); LYMPH # 0.7 10^3/uL (1.5-4.5); LYMPH % 9.1 % (24.0-44.0); MEAN CORPUSCULAR HEMOGLOBIN 30.2 pg (27.0-33.0); MEAN CORPUSCULAR HGB CONC 30.7 g/dl (32.0-36.5); MEAN CORPUSCULAR VOLUME 98.3 fl (80.0-96.0); MONO # 0.8 10^3/uL (0.0-0.8); MONO % 9.8 % (0.0-5.0); NEUTROPHILS % 75.7 % (36.0-66.0); RED BLOOD COUNT 2.98 10^6/uL (4.30-6.10)
[2018-10-12 05:08] LABS: CALCIUM LEVEL 8.7 MG/DL (8.8-10.2); CREATININE FOR GFR 2.25 MG/DL (0.70-1.30); GLOMERULAR FILTRATION RATE 31.6 (>49); POTASSIUM SERUM 4.2 MEQ/L (3.5-5.1)
[2018-10-12 05:42] LABS: PLATELET COUNT, AUTOMATED 167 10^3/uL (150-450)
[2018-10-12] MEDS: PIPERACILLIN/TAZOBACTAM SOD 2.25 GM in D5W MINI-BAG PLUS 50 ML IV SCH ×2 (08:14→18:55)
[2018-10-12] MEDS: ATORVASTATIN 10 MG TAB PO SCH (08:15)
[2018-10-12] MEDS: BENZTROPINE 1 MG TAB PO SCH ×2 (08:15→20:45)
[2018-10-12] MEDS: clonazePAM 1 MG TAB PO SCH ×3 (08:15→20:45)
[2018-10-12] MEDS: LITHIUM CARBONATE 150 MG CAP PO SCH ×2 (08:15→20:45)
[2018-10-12] MEDS: DOCUSATE SODIUM 100 MG CAP PO SCH ×2 (08:15→20:44)
[2018-10-12] MEDS: HALOPERIDOL 5 MG TAB PO SCH ×2 (08:15→20:47)
[2018-10-12] MEDS: OMEPRAZOLE 20 MG CAP PO SCH (08:15)
[2018-10-12] MEDS: CARVedilol 6.25 MG TAB PO SCH ×2 (08:16→20:45)
[2018-10-12] MEDS: OLANZapine 10 MG TAB PO SCH (08:16)
[2018-10-12] MEDS: APIXABAN 2.5 MG TAB (ELIQUIS) PO SCH ×2 (08:16→20:47)
[2018-10-12] MEDS: FERROUS GLUCONATE 324 MG TAB PO SCH (08:16)
[2018-10-12] MEDS: lamoTRIgine 100MG TAB PO SCH ×2 (08:16→20:46)
[2018-10-12] MEDS: LACTIC ACID 12% LOTION 225 GM BTL TOP SCH ×2 (08:17→21:00)
[2018-10-12] MEDS: EUCERIN 120GM CREAM TOP SCH ×3 (08:17→21:00)
[2018-10-12] MEDS: OLANZapine 5 MG TAB PO SCH ×3 (08:17→18:54)
[2018-10-12] MEDS: NYSTATIN 100,000 UNITS/GM TOPICAL PWD 15 GM TOP SCH ×2 (08:18→21:00)
--- NOTE | 2018-10-12 09:45 | IPNPDOC ---
Date Seen The patient was seen on 10/12/18. Progress Note SUBJECTIVE: Per RN overnight, pt c/o severe pruritis and was scratching his right inner thigh and leg. s/p bendaryl due to increased agitation. on prn atarax. since blood tranfusion, pt's h&h has improved. he denies any recurrent rigors or chills. afebrile and on broad spectrum abx. pt is refusing to take any new medications. sister gave verbal consent for blood transfusion yesterday. OBJECTIVE: PHYSICAL EXAMINATION: VITALS: PLS SEE BELOW GENERAL: He is awake, alert, but he is very confused. He does not follow any commands. He does not answer any questoins. HEENT: Atraumatic. Pupils equal, round and reactive to light. No jaundice. Extraocular muscles intact. Ears, nose, throat: Normal. Mouth: Mucous moist. Neck: No JVD. No bruits. LUNGS: Clear. No wheezing, no crackles. HEART: S1, S2, regular, but tachycardia. ABDOMEN: Soft, bowel sounds positive. Nontender. LOWER EXTREMITIES: Extensive redness in his right lower extremities below the knee, up the ankle, but there is no evidence of abscess. SKIN: No other rashes. NEUROLOGICAL: Nonfocal. PSYCHOLOGICAL: Demented, but no acute psychosis. DIAGNOSTICS AND LABS:PLS SEE BELOW IMAGING STUDIES: Renal ultrasound for renal failure: The right kidney measures 10.0 x 4.5 x 4.6 cm. The left kidney measures 9.2 x 4.4 x 5.1 cm. The kidneys are in the low normal size range. Renal cortical echogenicity is mildly echogenic bilaterally, compatible with medical renal disease. There is no hydronephrosis on the right or the left. No renal calculi are identified. No renal solid masses are identified. There are two right renal cyst in the lower pole, one measuring up to 2.7 cm in diameter and the other measuring up to 1.2 cm in diameter. These appear to be Bosniak type 1 simple cysts. There is a single cyst in the lower pole left kidney measuring up to 1.2 cm. This appears to be a Bosniak type 1 simple cyst. Impression: Mild bilateral renal cortical echogenicity. The kidneys are in the low normal size range. There are bilateral renal cortical simple cysts. No hydronephrosis, calculus or solid mass. Electronically Signed by Mikal Pina MD 10/11/2018 08:49 A DD: Mikal Pina MD 10/11/18 0846 ASSESSMENT AND PLAN:The patient is a 63-year-old male came from [facility] with complaint of fever. Since patient has mental retardation and he is very confused, he is not able to provide any information. [facility] staff provided history. Per [facility] staff, patient was doing fine until today. He was found to have a temperature of 103. Also he complained of some difficulty breathing, and also he was found to have worsening redness in his right lower extremity. So, he was sent her for full evaluation. In the ER, he was found to have temperature up to 102.9 and also his initial workup indicated he has worsening kidney function and worsening chronic anemia. His chest CT was abnormal, which was not significant. Medicine service called for admission. Severe sepsis/ Right lower extremity, cellulitis. atient will be admitted to the PCU for close monitoring. Will treat him with IV fluid and antibiotic including Zosyn and vancomycin since he has history of Methicillin-resistant Staphylococcus aureus (MRSA). Will follow the cultures. Acute onset CKD, stage III. RENAL u/s no solid masses. avoid nephrotoxins, renally dose meds, strict i/o. ivfluids for sepsis Acute on chronic anemia. s/p 2 units rbc transfusion. reviewed iron studies, retic count, stool for blood. hgb 10 as goal. History of mental retardation/ schizophrenia. hcp contacted History of DVT, on Eliquis. disposition: medically stable for medsurg transfer. VS, I&O, 24H, Fishbone Vital Signs/I&O Vital Signs Date Time Temp Pulse Resp B/P (MAP) Pulse Ox O2 Delivery O2 Flow Rate FiO2 10/12/18 08:00 98.8 109 18 93 10/12/18 04:00 117/77 (90) 10/11/18 01:09 Room Air I&O- Last 24 Hours up to 6 AM 10/12/18 06:00 Intake Total 1040 ml Output Total 0 ml Balance 1040 ml Laboratory Data 24H LABS Laboratory Tests 2 10/11/18 15:00: Nucleated Red Blood Cells % (auto) 0.0 10/11/18 20:56: Nucleated Red Blood Cells % (auto) 0.0 10/12/18 04:24: Nucleated Red Blood Cells % (auto) 0.0, Immature Granulocyte % (Auto) 0.6, White Blood Count 8.0, Red Blood Count 2.98L, Hemoglobin 9.0L, Hematocrit 29.3L, Mean Corpuscular Volume 98.3H, Mean Corpuscular Hemoglobin 30.2, Mean Corpuscular Hemoglobin Concent 30.7L, Red Cell Distribution Width 16.8H, Platelet Count 167, Neutrophils (%) (Auto) 75.7H, Lymphocytes (%) (Auto) 9.1L, Monocytes (%) (Auto) 9.8H, Eosinophils (%) (Auto) 4.4H, Basophils (%) (Auto) 0.4, Neutrophils # (Auto) 6.0, Lymphocytes # (Auto) 0.7L, Monocytes # (Auto) 0.8, Eosinophils # (Auto) 0.4, Basophils # (Auto) 0.0, Anion Gap 7L, Glomerular Filtration Rate 31.6L, Blood Urea Nitrogen 29H, Creatinine 2.25H, Sodium Level 144, Potassium Level 4.2, Chloride Level 112H, Carbon Dioxide Level 25, Calcium Level 8.7L CBC/BMP Laboratory Tests 10/11/18 15:00 Red Blood Count 3.05 L, Mean Corpuscular Volume 97.0 H, Mean Corpuscular Hemoglobin 29.8, Mean Corpuscular Hemoglobin Concent 30.7 L, Red Cell Distribution Width 16.3 H 10/11/18 20:56 Red Blood Count 3.25 L, Mean Corpuscular Volume 98.5 H, Mean Corpuscular Hemoglobin 30.5, Mean Corpuscular Hemoglobin Concent 30.9 L, Red Cell Distribution Width 16.8 H 10/12/18 04:24 Red Blood Count 2.98 L, Mean Corpuscular Volume 98.3 H, Mean Corpuscular Hemoglobin 30.2, Mean Corpuscular Hemoglobin Concent 30.7 L, Red Cell Distribution Width 16.8 H, Neutrophils (%) (Auto) 75.7 H, Lymphocytes (%) (Auto) 9.1 L, Monocytes (%) (Auto) 9.8 H, Eosinophils (%) (Auto) 4.4 H, Basophils (%) (Auto) 0.4, Neutrophils # (Auto) 6.0, Lymphocytes # (Auto) 0.7 L, Monocytes # (Auto) 0.8, Eosinophils # (Auto) 0.4, Basophils # (Auto) 0.0, Calcium Level 8.7 L Microbiology Microbiology 10/10/18 Blood Culture - Preliminary, Resulted No growth after 24 hours . All specim... 10/10/18 Blood Culture - Preliminary, Resulted No growth after 24 hours . All specim... 10/10/18 Group A Streptococcus Screen ([facility]) - Final, Complete 10/10/18 Respiratory Virus Panel (PCR) (CAROL) - Final, Complete 10/10/18 Urine Culture - Final, Complete NINI PICKARD MD Oct 12, 2018 09:45
[2018-10-12] MEDS ORDERED: diphenhydrAMINE INJ 50MG/ML VIAL (J1200) IV STA (18:10)
[2018-10-12] MEDS ORDERED: LORazepam 2 MG/ML VIAL (J2060) IV STA (18:10)
[2018-10-12] MEDS: hydrOXYzine 25 MG TAB PO PRN (18:54)
[2018-10-12] MEDS: FINASTERIDE 5 MG TAB PO SCH (20:46)
[2018-10-12] MEDS: MULTIVITAMINS/MINERALS THERAP 1 TAB PO SCH (20:47)
[2018-10-12] MEDS: VANCOMYCIN HCL 1,000 MG, VIAL MATE ADAPTER 1 EACH in D5W 250 ML IV SCH (21:00)
[2018-10-12] MEDS: FLUTICASONE PROP 0.05% NASAL SPRAY 16 GM (FLONASE) SCH (21:00)
[2018-10-12] MEDS ORDERED: HALOPERIDOL 5 MG/ML VIAL (J1630) IM PRN (22:00)
[2018-10-13 05:54] LABS: BASO % 0.4 % (0.0-1.0); EOS # 0.3 10^3/uL (0.0-0.50); EOS % 6.1 % (0.0-3.0); HEMATOCRIT 28.9 % (42.0-52.0); LYMPH # 0.6 10^3/uL (1.5-4.5); LYMPH % 11.6 % (24.0-44.0); MEAN CORPUSCULAR HEMOGLOBIN 29.7 pg (27.0-33.0); MEAN CORPUSCULAR HGB CONC 31.1 g/dl (32.0-36.5); MEAN CORPUSCULAR VOLUME 95.4 fl (80.0-96.0); MONO # 0.5 10^3/uL (0.0-0.8); MONO % 9.6 % (0.0-5.0); NEUTROPHILS # 3.9 10^3/uL (1.8-7.7); NEUTROPHILS % 71.6 % (36.0-66.0); PLATELET COUNT, AUTOMATED 190 10^3/uL (150-450); RED BLOOD COUNT 3.03 10^6/uL (4.30-6.10); WHITE BLOOD COUNT 5.4 10^3/uL (4.0-10.0)
[2018-10-13 06:01] LABS: CALCIUM LEVEL 9.2 MG/DL (8.8-10.2); CREATININE FOR GFR 2.13 MG/DL (0.70-1.30); GLOMERULAR FILTRATION RATE 33.7 (>49); POTASSIUM SERUM 4.5 MEQ/L (3.5-5.1)
[2018-10-13] MEDS ORDERED: diphenhydrAMINE INJ 50MG/ML VIAL (J1200) IV STA (08:56)
[2018-10-13] MEDS ORDERED: LORazepam 2 MG/ML VIAL (J2060) IV STA (08:57)
[2018-10-13] MEDS: LACTIC ACID 12% LOTION 225 GM BTL TOP SCH ×2 (09:00→21:00)
[2018-10-13] MEDS: NYSTATIN 100,000 UNITS/GM TOPICAL PWD 15 GM TOP SCH ×2 (09:00→21:00)
[2018-10-13] MEDS: EUCERIN 120GM CREAM TOP SCH ×3 (09:00→21:00)
[2018-10-13] MEDS: PIPERACILLIN/TAZOBACTAM SOD 2.25 GM in D5W MINI-BAG PLUS 50 ML IV SCH ×4 (09:32→18:20)
[2018-10-13] MEDS: LITHIUM CARBONATE 150 MG CAP PO SCH ×2 (09:44→21:10)
[2018-10-13] MEDS: OMEPRAZOLE 20 MG CAP PO SCH (09:44)
[2018-10-13] MEDS: CALCITRIOL 0.25 MCG CAP (S0169) PO SCH (09:44)
[2018-10-13] MEDS: DOCUSATE SODIUM 100 MG CAP PO SCH ×2 (09:44→21:08)
[2018-10-13] MEDS: ATORVASTATIN 10 MG TAB PO SCH (09:44)
[2018-10-13] MEDS: hydrOXYzine 25 MG TAB PO PRN (09:45)
[2018-10-13] MEDS: clonazePAM 1 MG TAB PO SCH ×3 (09:45→21:11)
[2018-10-13] MEDS: BENZTROPINE 1 MG TAB PO SCH ×2 (09:45→21:10)
[2018-10-13] MEDS: FERROUS GLUCONATE 324 MG TAB PO SCH (09:45)
[2018-10-13] MEDS: OLANZapine 5 MG TAB PO SCH ×3 (09:45→17:47)
[2018-10-13] MEDS: lamoTRIgine 100MG TAB PO SCH ×2 (09:45→21:11)
[2018-10-13] MEDS: APIXABAN 2.5 MG TAB (ELIQUIS) PO SCH ×2 (09:45→21:11)
[2018-10-13] MEDS: ACETAMINOPHEN TAB 650MG DOSE (2X325MG) PO PRN ×2 (09:45→21:11)
[2018-10-13] MEDS: CARVedilol 6.25 MG TAB PO SCH ×2 (09:56→21:07)
[2018-10-13] MEDS ORDERED: PILL CRUSHER/CUTTER 1 EACH XX PRN (10:30)
[2018-10-13] MEDS: VANCOMYCIN HCL 1,000 MG, VIAL MATE ADAPTER 1 EACH in D5W 250 ML IV SCH (10:45)
[2018-10-13] MEDS: HALOPERIDOL 5 MG TAB PO SCH ×2 (11:58→21:06)
--- NOTE | 2018-10-13 20:19 | IPNPDOC ---
Date Seen The patient was seen on 10/13/18. Progress Note SUBJECTIVE: Per RN, pt has been refusing to take his po meds. He has not been taking his haldol, and has been yelling out, "I don't want any pills." At times, he is cooperative and RN is able to hang his IV antibiotics. Per RN, pt has been scratching his inner right thigh and leg. This morning, pt c/o severe pruritis in his right leg and thigh. "It bothers me. It's itchy, but I don't want pills." Iv benadryl given for pruritus. Pt became more belligerent yelling out and more agitated. Iv ativan could not be given as it would be chemical restraint. After a few minutes, patient settled down and RN was able to give IV zosyn. OBJECTIVE: PHYSICAL EXAMINATION: VITALS: PLS SEE BELOW GENERAL: He is awake, alert, but he is very agitated, yelling. HEENT: Atraumatic. Pupils equal, round and reactive to light. No jaundice. Extraocular muscles intact. Ears, nose, throat: Normal. Mouth: Mucous moist. Neck: No JVD. No bruits. LUNGS: Clear. No wheezing, no crackles. HEART: S1, S2, regular, but tachycardia. ABDOMEN: Soft, bowel sounds positive. Nontender. LOWER EXTREMITIES: Extensive redness in his right lower extremities below the knee, up the ankle, but there is no evidence of abscess. some induration and weeping. SKIN: No other rashes. NEUROLOGICAL: Nonfocal. PSYCHOLOGICAL: Demented, but no acute psychosis. DIAGNOSTICS AND LABS:PLS SEE BELOW IMAGING STUDIES: Renal ultrasound for renal failure: The right kidney measures 10.0 x 4.5 x 4.6 cm. The left kidney measures 9.2 x 4.4 x 5.1 cm. The kidneys are in the low normal size range. Renal cortical echogenicity is mildly echogenic bilaterally, compatible with medical renal disease. There is no hydronephrosis on the right or the left. No renal calculi are identified. No renal solid masses are identified. There are two right renal cyst in the lower pole, one measuring up to 2.7 cm in diameter and the other measuring up to 1.2 cm in diameter. These appear to be Bosniak type 1 simple cysts. There is a single cyst in the lower pole left kidney measuring up to 1.2 cm. This appears to be a Bosniak type 1 simple cyst. Impression: Mild bilateral renal cortical echogenicity. The kidneys are in the low normal size range. There are bilateral renal cortical simple cysts. No hydronephrosis, calculus or solid mass. Electronically Signed by Mikal Pina MD 10/11/2018 08:49 A DD: Mikal Pina MD 10/11/18 0846 ASSESSMENT AND PLAN:The patient is a 63-year-old male came from [facility] with complaint of fever. Since patient has mental retardation and he is very confused, he is not able to provide any information. [facility] staff provided history. Per [facility] staff, patient was doing fine until today. He was found to have a temperature of 103. Also he complained of some difficulty breathing, and also he was found to have worsening redness in his right lower extremity. So, he was sent her for full evaluation. In the ER, he was found to have temperature up to 102.9 and also his initial workup indicated he has worsening kidney function and worsening chronic anemia. His chest CT was abnormal, which was not significant. Medicine service called for admission. Severe sepsis/ Right lower extremity, cellulitis. on iv Zosyn and vancomycin since he has history of Methicillin-resistant Staphylococcus aureus (MRSA). Will follow the cultures. slightly improved. CKD, stage III. RENAL u/s no solid masses. avoid nephrotoxins, renally dose meds, strict i/o. ivfluids for sepsis . at baseline creatinine. Acute on chronic anemia. s/p 2 units rbc transfusion. reviewed iron studies, retic count, stool for blood. hgb 10 as goal. History of mental retardation/ schizophrenia. hcp contacted. will need psychiatriac consultation if schizophrenia symptoms arise or pt becomes much more agitated. History of DVT, on Eliquis. disposition: if increased agitation, will need psych to assess for active schizo issues.. VS, I&O, 24H, Fishbone Vital Signs/I&O Vital Signs Date Time Temp Pulse Resp B/P (MAP) Pulse Ox O2 Delivery O2 Flow Rate FiO2 10/13/18 09:56 106 131/80 10/12/18 22:00 96.6 20 96 10/11/18 01:09 Room Air I&O- Last 24 Hours up to 6 AM 10/13/18 06:00 Intake Total 2390 ml Output Total 800 ml Balance 1590 ml Laboratory Data 24H LABS Laboratory Tests 2 10/13/18 05:20: Immature Granulocyte % (Auto) 0.7, White Blood Count 5.4, Red Blood Count 3.03L, Hemoglobin 9.0L, Hematocrit 28.9L, Mean Corpuscular Volume 95.4, Mean Corpuscular Hemoglobin 29.7, Mean Corpuscular Hemoglobin Concent 31.1L, Red Cell Distribution Width 15.6H, Platelet Count 190, Neutrophils (%) (Auto) 71.6H, Lymphocytes (%) (Auto) 11.6L, Monocytes (%) (Auto) 9.6H, Eosinophils (%) (Auto) 6.1H, Basophils (%) (Auto) 0.4, Neutrophils # (Auto) 3.9, Lymphocytes # (Auto) 0.6L, Monocytes # (Auto) 0.5, Eosinophils # (Auto) 0.3, Basophils # (Auto) 0.0, Nucleated Red Blood Cells % (auto) 0.0, Anion Gap 5L, Glomerular Filtration Rate 33.7L, Blood Urea Nitrogen 21H, Creatinine 2.13H, Sodium Level 147H, Potassium Level 4.5, Chloride Level 114H, Carbon Dioxide Level 28, Calcium Level 9.2 CBC/BMP Laboratory Tests 10/13/18 05:20 Red Blood Count 3.03 L, Mean Corpuscular Volume 95.4, Mean Corpuscular Hemoglobin 29.7, Mean Corpuscular Hemoglobin Concent 31.1 L, Red Cell Distribution Width 15.6 H, Neutrophils (%) (Auto) 71.6 H, Lymphocytes (%) (Auto) 11.6 L, Monocytes (%) (Auto) 9.6 H, Eosinophils (%) (Auto) 6.1 H, Basophils (%) (Auto) 0.4, Neutrophils # (Auto) 3.9, Lymphocytes # (Auto) 0.6 L, Monocytes # (Auto) 0.5, Eosinophils # (Auto) 0.3, Basophils # (Auto) 0.0, Calcium Level 9.2 Microbiology Microbiology 10/10/18 Blood Culture - Preliminary, Resulted No Growth after 72 hours. All specime... 10/10/18 Blood Culture - Preliminary, Resulted No Growth after 72 hours. All specime... 10/10/18 Group A Streptococcus Screen ([facility]OL) - Final, Complete 10/10/18 Respiratory Virus Panel (PCR) (CAROL) - Final, Complete 10/10/18 Urine Culture - Final, Complete NINI PICKARD MD Oct 13, 2018 20:19
[2018-10-13] MEDS: NS 0.45% 1,000 ML IV SCH (20:30)
[2018-10-13] MEDS: FLUTICASONE PROP 0.05% NASAL SPRAY 16 GM (FLONASE) SCH (21:00)
[2018-10-13] MEDS: MULTIVITAMINS/MINERALS THERAP 1 TAB PO SCH (21:00)
[2018-10-13] MEDS: diphenhydrAMINE 25 MG CAP PO PRN (21:06)
[2018-10-13] MEDS: FINASTERIDE 5 MG TAB PO SCH (21:06)
[2018-10-13] MEDS: OLANZapine 10 MG TAB PO SCH (21:06)
[2018-10-13 22:00] VITALS: BP 146/87
[2018-10-14] MEDS: hydrOXYzine 25 MG TAB PO PRN ×2 (03:04→17:25)
[2018-10-14] MEDS: ACETAMINOPHEN TAB 650MG DOSE (2X325MG) PO PRN ×3 (03:51→17:25)
[2018-10-14] MEDS ORDERED: HALOPERIDOL 5 MG TAB PO PRN (09:00)
[2018-10-14 09:16] VITALS: BP 130/85
[2018-10-14 09:16] LABS: BASO % 0.5 % (0.0-1.0); EOS # 0.4 10^3/uL (0.0-0.50); HEMATOCRIT 34.4 % (42.0-52.0); HEMOGLOBIN 10.5 g/dl (13.5-17.5); LYMPH # 0.8 10^3/uL (1.5-4.5); LYMPH % 20.3 % (24.0-44.0); MEAN CORPUSCULAR HGB CONC 30.5 g/dl (32.0-36.5); MEAN CORPUSCULAR VOLUME 98.3 fl (80.0-96.0); MONO # 0.4 10^3/uL (0.0-0.8); MONO % 9.7 % (0.0-5.0); NEUTROPHILS # 2.5 10^3/uL (1.8-7.7); NEUTROPHILS % 59.8 % (36.0-66.0); PLATELET COUNT, AUTOMATED 191 10^3/uL (150-450); WHITE BLOOD COUNT 4.1 10^3/uL (4.0-10.0)
[2018-10-14 09:40] LABS: C REACTIVE PROTEIN QUANTITATIV 8.27 MG/DL (0.00-0.30); CALCIUM LEVEL 9.2 MG/DL (8.8-10.2); CREATININE FOR GFR 1.75 MG/DL (0.70-1.30); GLOMERULAR FILTRATION RATE 42.3 (>49); POTASSIUM SERUM 4.9 MEQ/L (3.5-5.1); VANCOMYCIN LEVEL TROUGH 9.7 UG/ML (10.0-20.0)
[2018-10-14 09:47] LABS: ERYTHROCYTE SEDIMENTATION RATE 69 mm/hr (0-20)
[2018-10-14] MEDS: lamoTRIgine 100MG TAB PO SCH ×2 (10:20→20:11)
[2018-10-14] MEDS: CALCITRIOL 0.25 MCG CAP (S0169) PO SCH (10:21)
[2018-10-14] MEDS: diphenhydrAMINE 25 MG CAP PO PRN ×2 (10:22→20:10)
[2018-10-14] MEDS: OMEPRAZOLE 20 MG CAP PO SCH (10:22)
[2018-10-14] MEDS: CARVedilol 6.25 MG TAB PO SCH ×2 (10:22→20:13)
[2018-10-14] MEDS: DOCUSATE SODIUM 100 MG CAP PO SCH ×2 (10:22→20:10)
[2018-10-14] MEDS: FERROUS GLUCONATE 324 MG TAB PO SCH (10:23)
[2018-10-14] MEDS: ATORVASTATIN 10 MG TAB PO SCH (10:23)
[2018-10-14] MEDS: LITHIUM CARBONATE 150 MG CAP PO SCH ×2 (10:23→20:10)
[2018-10-14] MEDS: BENZTROPINE 1 MG TAB PO SCH ×2 (10:23→20:10)
[2018-10-14] MEDS: OLANZapine 5 MG TAB PO SCH ×3 (10:23→17:26)
[2018-10-14] MEDS: APIXABAN 2.5 MG TAB (ELIQUIS) PO SCH ×2 (10:23→20:11)
[2018-10-14] MEDS: clonazePAM 1 MG TAB PO SCH ×3 (10:23→20:12)
[2018-10-14] MEDS: EUCERIN 120GM CREAM TOP SCH ×3 (10:24→20:27)
[2018-10-14] MEDS: HALOPERIDOL 5 MG TAB PO SCH ×2 (10:24→20:12)
[2018-10-14] MEDS: LACTIC ACID 12% LOTION 225 GM BTL TOP SCH ×2 (10:25→20:27)
[2018-10-14] MEDS: NYSTATIN 100,000 UNITS/GM TOPICAL PWD 15 GM TOP SCH ×2 (10:25→20:27)
[2018-10-14] MEDS: NS 0.45% 1,000 ML IV SCH (11:36)
[2018-10-14] MEDS: PIPERACILLIN/TAZOBACTAM SOD 2.25 GM in D5W MINI-BAG PLUS 50 ML IV SCH ×3 (11:36)
[2018-10-14] MEDS: VANCOMYCIN HCL 1,000 MG, VIAL MATE ADAPTER 1 EACH in D5W 250 ML IV SCH (11:37)
--- NOTE | 2018-10-14 12:48 | IPNPDOC ---
Text Note Date of Service The patient was seen on 10/14/18. NOTE Subjective: Patient is a 63 year old male with with a PMHx MR, HTN, Hx of DVT on Eliquis, CKD3, Anemia, Schizoaffective disorder and GERD who presented to the ER with complaints of fever and was found to have a right lower extremity cellulitis. Patient was admitted to hospitalist service for further evaluation and treatment. Patient was seen and examined at the bedside. Patient did not have any complaints. Minimally conversive. Objective: Vitals (See below) General: Lying in bed, no acute distress, comfortable, AAOx3 HEENT: NC, AT CVS: RRR, +S1S2 Lungs: Fair air entry b/l, -w/r/r Abdomen: Soft, ND, NT Extremities: - Edema, - Calf tenderness Assessment and plan: Severe sepsis - likely 2/2 RLE cellulitis - Currently appears to be doing better - Physical still reveal some swelling, redness - reportedly improved from prior - Leukocytosis resolved; CRP improving - Blood culture 10/10: Negative after 72 hours - Will start Cefdinir / Doxycycline; s/p Vancomycin and Zosyn CKD3 - Creatinine has trended down - Cr appears to have improved Acute on Chronic Anemia - s/p 2 units PRBC MR / Schizophrenia - Patient continues to have agitation; will continue with existing medications History of DVT / DVT prophylaxis - c/w Eliquis Disposition: - Awaiting clinical improvement of LE cellulitis VS,Nash, I+O VS, Nash, I+O Laboratory Tests 10/14/18 08:55 Red Blood Count 3.50 L, Mean Corpuscular Volume 98.3 H, Mean Corpuscular Hemoglobin 30.0, Mean Corpuscular Hemoglobin Concent 30.5 L, Red Cell Distributi on Width 15.1 H, Neutrophils (%) (Auto) 59.8, Lymphocytes (%) (Auto) 20.3 L, Monocytes (%) (Auto) 9.7 H, Eosinophils (%) (Auto) 9.0 H, Basophils (%) (Auto) 0.5, Neutrophils # (Auto) 2.5, Lymphocytes # (Auto) 0.8 L, Monocytes # (Auto) 0.4, Eosinophils # (Auto) 0.4, Basophils # (Auto) 0.0, Calcium Level 9.2 Vital Signs Date Time Temp Pulse Resp B/P (MAP) Pulse Ox O2 Delivery O2 Flow Rate FiO2 10/14/18 10:22 97 130/85 10/14/18 09:16 97.0 20 97 10/11/18 01:09 Room Air I&O- Last 24 Hours up to 6 AM 10/14/18 06:00 Intake Total 3355 ml Output Total 750 ml Balance 2605 ml OLMAN UNDERWOOD MD Oct 14, 2018 12:48
[2018-10-14 14:00] VITALS: BP 135/90
[2018-10-14] MEDS: CEFDINIR 300 MG CAP (OMNICEF) PO SCH ×2 (14:34→20:12)
[2018-10-14] MEDS: DOXYCYCLINE HYCLATE 100 MG TAB PO SCH ×2 (14:34→20:09)
[2018-10-14] MEDS: MULTIVITAMINS/MINERALS THERAP 1 TAB PO SCH (20:10)
[2018-10-14] MEDS: OLANZapine 10 MG TAB PO SCH (20:11)
[2018-10-14] MEDS: FINASTERIDE 5 MG TAB PO SCH (20:12)
[2018-10-14] MEDS: FLUTICASONE PROP 0.05% NASAL SPRAY 16 GM (FLONASE) SCH (20:27)
[2018-10-14 22:00] VITALS: BP 141/79
[2018-10-15 02:00] VITALS: BP 133/84
[2018-10-15] MEDS: diphenhydrAMINE 25 MG CAP PO PRN (03:36)
[2018-10-15] MEDS: hydrOXYzine 25 MG TAB PO PRN (03:36)
[2018-10-15 06:00] VITALS: BP 129/81
[2018-10-15 06:41] LABS: BASO % 0.6 % (0.0-1.0); EOS # 0.3 10^3/uL (0.0-0.50); EOS % 9.7 % (0.0-3.0); HEMATOCRIT 27.9 % (42.0-52.0); HEMOGLOBIN 8.6 g/dl (13.5-17.5); LYMPH # 0.7 10^3/uL (1.5-4.5); LYMPH % 21.3 % (24.0-44.0); MEAN CORPUSCULAR HEMOGLOBIN 30.1 pg (27.0-33.0); MEAN CORPUSCULAR HGB CONC 30.8 g/dl (32.0-36.5); MEAN CORPUSCULAR VOLUME 97.6 fl (80.0-96.0); MONO # 0.4 10^3/uL (0.0-0.8); MONO % 12.5 % (0.0-5.0); NEUTROPHILS # 1.7 10^3/uL (1.8-7.7); NEUTROPHILS % 54.3 % (36.0-66.0); PLATELET COUNT, AUTOMATED 191 10^3/uL (150-450); RED BLOOD COUNT 2.86 10^6/uL (4.30-6.10); WHITE BLOOD COUNT 3.2 10^3/uL (4.0-10.0)
[2018-10-15 07:15] LABS: CALCIUM LEVEL 9.2 MG/DL (8.8-10.2); CREATININE FOR GFR 1.8 MG/DL (0.70-1.30); GLOMERULAR FILTRATION RATE 40.9 (>49); POTASSIUM SERUM 4.6 MEQ/L (3.5-5.1)
[2018-10-15] MEDS ORDERED: DOXY100T PO (08:29)
[2018-10-15] MEDS ORDERED: CEFD300CAP PO (08:29)
[2018-10-15] MEDS: FERROUS GLUCONATE 324 MG TAB PO SCH (09:00)
[2018-10-15] MEDS: CALCITRIOL 0.25 MCG CAP (S0169) PO SCH (09:00)
[2018-10-15] MEDS: DOCUSATE SODIUM 100 MG CAP PO SCH (09:59)
[2018-10-15] MEDS: CEFDINIR 300 MG CAP (OMNICEF) PO SCH (09:59)
[2018-10-15] MEDS: clonazePAM 1 MG TAB PO SCH (10:00)
[2018-10-15] MEDS: lamoTRIgine 100MG TAB PO SCH (10:00)
[2018-10-15] MEDS: APIXABAN 2.5 MG TAB (ELIQUIS) PO SCH (10:00)
[2018-10-15 10:01] VITALS: BP 129/81
[2018-10-15] MEDS: DOXYCYCLINE HYCLATE 100 MG TAB PO SCH (10:01)
[2018-10-15] MEDS: OMEPRAZOLE 20 MG CAP PO SCH (10:01)
[2018-10-15] MEDS: HALOPERIDOL 5 MG TAB PO SCH (10:01)
[2018-10-15] MEDS: BENZTROPINE 1 MG TAB PO SCH (10:01)
[2018-10-15] MEDS: CARVedilol 6.25 MG TAB PO SCH (10:01)
[2018-10-15] MEDS: LITHIUM CARBONATE 150 MG CAP PO SCH (10:02)
[2018-10-15] MEDS: EUCERIN 120GM CREAM TOP SCH (10:02)
[2018-10-15] MEDS: OLANZapine 5 MG TAB PO SCH (10:02)
[2018-10-15] MEDS: ATORVASTATIN 10 MG TAB PO SCH (10:02)
[2018-10-15] MEDS: LACTIC ACID 12% LOTION 225 GM BTL TOP SCH (10:03)
[2018-10-15] MEDS: NYSTATIN 100,000 UNITS/GM TOPICAL PWD 15 GM TOP SCH (10:03)
--- NOTE | 2018-10-15 13:09 | DS.PDOC ---
Discharge Summary General Date of Admission Oct 11, 2018 at 00:21 Date of Discharge 10/15/2018 Discharge Summary PROCEDURES PERFORMED DURING STAY: [None]. ADMITTING DIAGNOSES / DISCHARGE DIAGNOSES: s/p Severe sepsis - likely 2/2 RLE cellulitis CKD3 Acute on Chronic Anemia Mental retardation / Cognitive delay Schizophrenia History of DVT DVT prophylaxis COMPLICATIONS/CHIEF COMPLAINT: Right leg redness / swelling / warmth HISTORY OF PRESENT ILLNESS: Patient is a 63 year old male with with a PMHx MR, HTN, Hx of DVT on Eliquis, CKD3, Anemia, Schizoaffective disorder and GERD who presented to the ER with complaints of fever and was found to have a right lower extremity cellulitis. Patient was admitted to hospitalist service for further evaluation and treatment. HOSPITAL COURSE: s/p Severe sepsis - likely 2/2 RLE cellulitis - Currently appears to be doing better - Physical shows resolution of swelling, redness and warmth - Leukocytosis resolved; CRP improving - Blood culture 10/10: Negative after 72 hours - c/w Cefdinir / Doxycycline; s/p Vancomycin and Zosyn - will complete course of antibiotics as outpatient CKD3 - Creatinine has trended down - Cr appears to have improved Acute on Chronic Anemia - s/p 2 units PRBC MR / Schizophrenia - Patient continues to have agitation; will continue with existing medications History of DVT / DVT prophylaxis - c/w Eliquis DISCHARGE MEDICATIONS: Please see below. ALLERGIES: Please see below. PHYSICAL EXAMINATION ON DISCHARGE: Vitals (See below) General: Lying in bed, no acute distress, comfortable, AAOx3 HEENT: NC, AT CVS: RRR, +S1S2 Lungs: Fair air entry b/l, no evidence of wheezing / rhonchi / rales Abdomen: Soft, ND, non-tender Extremities: No evidence of pitting edema, - Calf tenderness Skin: Improved redness / warmth / tenderness of Right leg LABORATORY DATA: Please see below. ACTIVITY: [As tolerated]. DISCHARGE PLAN: Follow up with Dr. Marleni Fountain within 7 days Remain compliant with treatment plan and medications Return to the ER if you experience any problems DISPOSITION: Transfer to [facility] DISCHARGE CONDITION: [Stable]. TIME SPENT ON DISCHARGE: Greater than [35] minutes. Vital Signs/I&Os Vital Signs Date Time Temp Pulse Resp B/P (MAP) Pulse Ox O2 Delivery O2 Flow Rate FiO2 10/15/18 10:01 84 129/81 10/15/18 06:00 98.0 19 98 10/11/18 01:09 Room Air I&O- Last 24 Hours up to 6 AM 10/15/18 06:00 Intake Total 4900 ml Output Total 400 ml Balance 4500 ml Laboratory Data Labs 24H Laboratory Tests 2 10/15/18 06:04: Immature Granulocyte % (Auto) 1.6, White Blood Count 3.2L, Red Blood Count 2.86L, Hemoglobin 8.6L, Hematocrit 27.9L, Mean Corpuscular Volume 97.6H, Mean Corpuscular Hemoglobin 30.1, Mean Corpuscular Hemoglobin Concent 30.8L, Red Cell Distribution Width 14.6H, Platelet Count 191, Neutrophils (%) (Auto) 54.3, Lym phocytes (%) (Auto) 21.3L, Monocytes (%) (Auto) 12.5H, Eosinophils (%) (Auto) 9.7H, Basophils (%) (Auto) 0.6, Neutrophils # (Auto) 1.7L, Lymphocytes # (Auto) 0.7L, Monocytes # (Auto) 0.4, Eosinophils # (Auto) 0.3, Basophils # (Auto) 0.0, Nucleated Red Blood Cells % (auto) 0.0 10/15/18 06:05: Anion Gap 4L, Glomerular Filtration Rate 40.9L, Blood Urea Nitrogen 21H, Creatinine 1.80H, Sodium Level 145, Potassium Level 4.6, Chloride Level 111H, Carbon Dioxide Level 30, Calcium Level 9.2 CBC/BMP Laboratory Tests 10/15/18 06:04 Red Blood Count 2.86 L, Mean Corpuscular Volume 97.6 H, Mean Corpuscular Hemoglobin 30.1, Mean Corpuscular Hemoglobin Concent 30.8 L, Red Cell Distribution Width 14.6 H, Neutrophils (%) (Auto) 54.3, Lymphocytes (%) (Auto) 21.3 L, Monocytes (%) (Auto) 12.5 H, Eosinophils (%) (Auto) 9.7 H, Basophils (%) (Auto) 0.6, Neutrophils # (Auto) 1.7 L, Lymphocytes # (Auto) 0.7 L, Monocytes # (Auto) 0.4, Eosinophils # (Auto) 0.3, Basophils # (Auto) 0.0 10/15/18 06:05 Calcium Level 9.2 Microbiology Microbiology 10/10/18 Blood Culture - Preliminary, Resulted No Growth after 72 hours. All specime... 10/10/18 Blood Culture - Preliminary, Resulted No Growth after 72 hours. All specime... 10/10/18 Group A Streptococcus Screen ([facility]) - Final, Complete 10/10/18 Respiratory Virus Panel (PCR) (CAR[facility]) - Final, Complete 10/10/18 Urine Culture - Final, Complete Discharge Medications Scheduled (Azelastine Hydrochloride) 0.1 % Spr, 1 SPRAY NA BID, (Reported) Ammonium Lactate (Ammonium Lactate) 12 % Cre, 1 DOSE TOP BID, (Reported) APPLIES TO BOTTOM OF FEET Apixaban Base (Eliquis) 2.5 Mg Tab, 2.5 MG PO BID, (Reported) Atorvastatin Calcium (Atorvastatin Calcium) 10 Mg Tab, 10 MG PO DAILY, (Report ed) Benztropine Mesylate (Benztropine Mesylate) 1 Mg Tab, 1 MG PO BID, (Reported) Calcitriol (Rocaltrol) 0.25 Mcg Cap, 0.25 MCG PO 5XW, (Reported) SATURDAY-SATURDAY Carvedilol (Carvedilol) 6.25 Mg Tab, 6.25 MG PO BID, (Reported) Cefdinir (Cefdinir) 300 Mg Cap, 300 MG PO BID Clonazepam (Clonazepam) 1 Mg Tab, 1 MG PO TID, (Reported) 0800/1600/QHS Docusate Sodium (Colace) 100 Mg Cap, 200 MG PO BID, (Reported) Doxycycline Hyclate (Doxycycline Hyclate) 100 Mg Tab, 100 MG PO BID Ergocalciferol (Vitamin D) 50,000 Unit Cap, 50,000 UNIT PO 1XWK, (Reported) TAKES ON SATURDAY NIGHTS Eucerin (Eucerin) 1 Cre Cre, 1 DOSE TOP TID, (Reported) USES ON RIGHT LEG Ferrous Gluconate (Ferrous Gluconate) 324 Mg Tab, 324 MG PO DAILY, (Reported) Finasteride (Finasteride) 5 Mg Tab, 5 MG PO QHS, (Reported) Fluticasone Propionate (Flonase Allergy Relief) 50 Mcg/Act Spr, 2 SPRAYS NA QHS, (Reported) Haloperidol (Haloperidol) 5 Mg Tab, 2.5 MG PO BID, (Reported) Lamotrigine (Lamictal) 200 Mg Tab, 200 MG PO BID, (Reported) Wedron Carbonate (Wedron Carbonate) 150 Mg Cap, 150 MG PO BID, (Reported) Multivitamins *[facility] STOCKED* (Thera M Plus *[facility] STOCKED*) 1 Tab Tab, 1 TAB PO QHS, (Reported) Nystatin (Nystatin Powder) 100,000 Unit/Gm Pow, 1 DOSE TOP BID, (Reported) APPLY BETWEEN TOES Olanzapine (Zyprexa) 5 Mg Tab, 5 MG PO TID, (Reported) Olanzapine (Zyprexa) 10 Mg Tab, 10 MG PO QHS, (Reported) Omeprazole (Omeprazole) 40 Mg Cap, 40 MG PO DAILY, (Reported) Sorbitan (Ocusoft Lid Scrub) 1 Ea Pad, 1 EA OU BID, (Reported) Scheduled PRN Haloperidol (Haloperidol) 5 Mg Tab, 5 MG PO DAILY PRN for ANXIETY/AGITATION, (Reported) Hydroxyzine HCl (Hydroxyzine HCl) 25 Mg Tab, 25 MG PO TID PRN for ITCHING, (Reported) Allergies Coded Allergies: NSAIDs (Verified Adverse Reaction, Intermediate, GERD, LIVER ISSUES, 08/07/18) OLMAN UNDERWOOD MD Oct 15, 2018 13:09
[2018-10-17] MEDS ORDERED: VITAMIN D 50,000 UNITS CAPSULE (ERGOCALCIFEROL 1.25MG) PO SCH (21:00)
== END 2018-10-15 10:30 | disposition home or self-care (01) | DRG 872 ==
LOC: M ED 16:49 → M ED INP 10-11 00:21 → M PCU 10-11 02:35 → M MS5PR 10-12 14:50
PROVIDERS: ADMIT Hospitalist; ATTEND Internal Medicine
DX: A41.9 Sepsis, unspecified organism (principal); L03.115 Cellulitis of right lower limb; N18.3 Chronic kidney disease, stage 3 (moderate); F79 Unspecified intellectual disabilities; F20.9 Schizophrenia, unspecified; D64.9 Anemia, unspecified; Z86.718 Personal history of other venous thrombosis and embolism; I12.9 Hypertensive chronic kidney disease with stage 1 through stage 4 chronic kidney disease, or unspecified chronic kidney disease; Z79.899 Other long term (current) drug therapy; Z88.6 Allergy status to analgesic agent; K21.9 Gastro-esophageal reflux disease without esophagitis; Z79.01 Long term (current) use of anticoagulants

== ENCOUNTER → 2018-10-10 | Outpatient (REF) | payer MEDICARE, MEDICAID ==
[~2018-10-10] MED LIST changes: -CEFD300CAP PO; -DOXY100T PO
== END ==
LOC: M LAB REF 19:06
PROVIDERS: ATTEND Physician Assistant Medical
DX: R50.9 Fever, unspecified (principal); R41.0 Disorientation, unspecified

== ENCOUNTER → 2018-11-21 | Outpatient (REF) | payer MEDICARE, MEDICAID ==
[~2018-11-21] MED LIST changes: -/LAMO20TA PO; -/MOM400 PO; -ACET50TA PO; -AMMO12CR4 TOP; +AMMO12CR7 TOP; -ATIV2INJ2 IM; +ATIV2INJ5 IM; +BENA2CRE3 TOP; -BENZ1TA PO; +BENZ1TAB42 PO; +CEFD300CAP PO; +DIPH50IN14 IM; -DIPH50VL IM; +DOXY100T PO; +ELIQ2.5T PO; +ERYT1OIN26 OU; -ERYT5OPO OU; +HALO1TA PO; +HALO5TA PO; +MAPA500T17 PO; +MILK10SU PO; +MUPI1OIN2 TOP; -MUPI2OI TOP; +NYST100029 TOP; -NYST10CR TOP; +ZYPR5TAB2 PO; -[UNRECOGNIZED DRUG - OTHER] TOP
[2018-11-21 19:15] LABS: PERCENT SATURATION 29.6 % (19.7-50.0)
== END ==
LOC: M LAB REF 17:25
PROVIDERS: ATTEND Internal Medicine Nephrology
DX: D50.9 Iron deficiency anemia, unspecified (principal)

== ENCOUNTER → 2018-12-10 | Outpatient (REF) | payer MEDICARE, MEDICAID ==
[2018-12-10 20:04] LABS: BASO % 0.6 % (0.0-1.0); EOS # 0.3 10^3/uL (0.0-0.50); EOS % 5.7 % (0.0-3.0); HEMATOCRIT 27.3 % (42.0-52.0); HEMOGLOBIN 8.2 g/dl (13.5-17.5); LYMPH # 1.3 10^3/uL (1.5-4.5); MEAN CORPUSCULAR HEMOGLOBIN 28.6 pg (27.0-33.0); MEAN CORPUSCULAR VOLUME 95.1 fl (80.0-96.0); MONO # 0.5 10^3/uL (0.0-0.8); MONO % 10.4 % (0.0-5.0); NEUTROPHILS # 2.9 10^3/uL (1.8-7.7); NEUTROPHILS % 57.3 % (36.0-66.0); PLATELET COUNT, AUTOMATED 284 10^3/uL (150-450); RED BLOOD COUNT 2.87 10^6/uL (4.30-6.10); WHITE BLOOD COUNT 5.1 10^3/uL (4.0-10.0)
== END ==
LOC: M LABDRWAD 19:14
PROVIDERS: ATTEND Nurse Practitioner Family
DX: L03.115 Cellulitis of right lower limb (principal)

== ENCOUNTER 2019-02-18 20:24 | Emergency (ER) | payer MEDICARE, MEDICAID ==
[~2019-02-18] VITALS: Ht 167.6 cm; Wt 79.5 kg
[2019-02-18] MEDS ORDERED: VITMTA PO (21:21)
[2019-02-18] MEDS ORDERED: LATU1TAB PO (21:34)
[2019-02-18] MEDS ORDERED: TRIA1CR80 TOP (21:34)
[2019-02-18] MEDS ORDERED: BENA25TA5 PO (21:34)
[2019-02-18] MEDS ORDERED: EYEL1MED TOP (21:34)
[2019-02-18] MEDS ORDERED: EUCECRE8 TOP (21:34)
--- NOTE | 2019-02-18 22:05 | REPVR ---
EXAM: CT Head Without Contrast EXAM DATE/TIME: 02/18/2019 8:51 PM CLINICAL HISTORY: 63 years old, male; Injury or trauma; Fall; Initial encounter; Blunt trauma (contusions or hematomas); Additional info: Head injury on blood thinners TECHNIQUE: Imaging protocol: Axial computed tomography images of the head without contrast. Radiation optimization: All CT scans at this facility use at least one of these dose optimization techniques: automated exposure control; mA and/or kV adjustment per patient size (includes targeted exams where dose is matched to clinical indication); or iterative reconstruction. COMPARISON: CT Head without contrast 01/08/2018 11:45 AM FINDINGS: Brain: Tiny hypodense lacunar infarcts are visualized within the left thalamus, too small to determine acuity. There is minimal periventricular white matter hypodensity, likely representing small vessel ischemic disease in a patient this age. The acuity of the white matter disease is indeterminate. The white-king differentiation is otherwise preserved demonstrating no acute territorial type infarct. No acute intracranial hemorrhage is seen. Midline shift: There is no midline shift. Ventricles: There is minimal to mild prominence of the ventricles and sulci, compatible with atrophy. Bones/joints: The calvarium demonstrates no evidence for a depressed fracture. Sinuses: Mucosal thickening of scattered ethmoid air cells. Mastoid air cells: Mild effusions within the right mastoid air cells. Soft tissues: There is soft tissue fullness/swelling involving the nasal cavity. Vasculature: Intracranial atherosclerosis visualized. IMPRESSION: 1. No acute intracranial hemorrhage. 2. Tiny hypodense lacunar infarcts are visualized within the left thalamus, too small to determine acuity. If further evaluation is clinically indicated, an MRI of the brain is recommended. 3. There is minimal periventricular white matter hypodensity, likely representing small vessel ischemic disease in a patient this age. 4. Minimal to mild atrophy. 5. Additional findings described above. Electronically signed by: Allan Kessler On 02/18/2019 22:05:39 PM
--- NOTE | 2019-02-18 22:12 | REPVR ---
EXAM: CT Cervical Spine Without Contrast EXAM DATE/TIME: 02/18/2019 8:51 PM CLINICAL HISTORY: 63 years old, male; Injury or trauma; Fall; Initial encounter; Blunt trauma TECHNIQUE: Imaging protocol: Axial computed tomography images of the cervical spine without contrast. Coronal and sagittal reformatted images were created and reviewed. Radiation optimization: All CT scans at this facility use at least one of these dose optimization techniques: automated exposure control; mA and/or kV adjustment per patient size (includes targeted exams where dose is matched to clinical indication); or iterative reconstruction. COMPARISON: CT Spine,cervical w/o contrast 01/08/2018 11:45 AM FINDINGS: Vertebrae: Motion artifact limits evaluation for fracture from the C1-C6 vertebral levels. No acute fracture of the C7 vertebral level. No abnormal subluxation of the cervical vertebral bodies. The facet alignment is preserved bilaterally. The occipital condyles appear intact. Discs/Spinal canal/Neural foramina: Spondylosis is visualized at multiple cervical levels. Although limited by artifact, there appears to be moderate narrowing of the thecal sac at C5-6 and C6-7. Facet arthropathy is identified at multiple cervical levels. Soft tissues: The prevertebral soft tissues are unremarkable. Lungs: No pneumothorax, as visualized. IMPRESSION: 1. Motion artifact limits evaluation for fracture from the C1-C6 vertebral levels. Repeat CT imaging is recommended, as clinically indicated. 2. Spondylosis is visualized at multiple cervical levels. 3. Although limited by artifact, there appears to be moderate narrowing of the thecal sac at C5-6 and C6-7. Electronically signed by: Allan Kessler On 02/18/2019 22:12:40 PM
--- NOTE | 2019-02-18 23:38 | REPVR ---
EXAM: CT Cervical Spine Without Contrast EXAM DATE/TIME: 02/18/2019 10:56 PM CLINICAL HISTORY: 63 years old, male; Injury or trauma; Fall; Initial encounter; Blunt trauma TECHNIQUE: Imaging protocol: Axial computed tomography images of the cervical spine without contrast. Coronal and sagittal reformatted images were created and reviewed. Radiation optimization: All CT scans at this facility use at least one of these dose optimization techniques: automated exposure control; mA and/or kV adjustment per patient size (includes targeted exams where dose is matched to clinical indication); or iterative reconstruction. COMPARISON: CT Spine,cervical w/o contrast 02/18/2019 8:47 PM FINDINGS: Vertebrae: No acute cervical spine fracture or subluxation. The facet alignment is preserved bilaterally. The occipital condyles and C1-C2 articulations appear intact. Hypertrophic degenerative changes are identified at the junction of the anterior C1 arch and dens process. Discs/Spinal canal/Neural foramina: Spondylosis is visualized at multiple cervical levels. Facet arthropathy is identified at multiple cervical levels. Artifact limits evaluation of the lower cervical spinal canal. Soft tissues: The prevertebral soft tissues are unremarkable. Lungs: No pneumothorax, as visualized. IMPRESSION: 1. No acute cervical spine fracture or subluxation. 2. Spondylosis is visualized at multiple cervical levels. Electronically signed by: Allan Kessler On 02/18/2019 23:37:29 PM
[2019-02-19 00:06] VITALS: BP 129/79
--- NOTE | 2019-02-23 11:38 | ED PDOC ---
Post-Departure Follow-Up shanti guzman faxed formal report of ct c spine for fu Alice Leyav MD Feb 23, 2019 11:38
--- NOTE | 2019-02-23 11:39 | ED PDOC ---
Post-Departure Follow-Up ct head also faxed to Alice Goodman MD Feb 23, 2019 11:39
[2019-03-06] MEDS ORDERED: DOXY100T16 PO (16:13)
== END 2019-02-19 00:12 | disposition home or self-care (01) ==
LOC: M ED 20:24
DX: S09.90XA Unspecified injury of head, initial encounter (principal); W08.XXXA Fall from other furniture, initial encounter; Y92.198 Other place in other specified residential institution as the place of occurrence of the external cause; M47.812 Spondylosis without myelopathy or radiculopathy, cervical region; F79 Unspecified intellectual disabilities; I12.9 Hypertensive chronic kidney disease with stage 1 through stage 4 chronic kidney disease, or unspecified chronic kidney disease; K21.9 Gastro-esophageal reflux disease without esophagitis; F25.9 Schizoaffective disorder, unspecified; D64.9 Anemia, unspecified; N18.9 Chronic kidney disease, unspecified; Z86.718 Personal history of other venous thrombosis and embolism; Z79.899 Other long term (current) drug therapy; Z79.01 Long term (current) use of anticoagulants

== ENCOUNTER → 2019-02-27 | Outpatient (CLI) | payer MEDICARE, MEDICAID ==
[~2019-02-27] MED LIST changes: +BENA25TA5 PO; +DOXY100T16 PO; +ERYTOIN8 OU; +EUCECRE8 TOP; +EYEL1MED TOP; +FLON1SPR NARES; +LORA2CON5 PO; +TRIA1CR80 TOP; +VENTAER INH
[2019-02-27 13:25] LABS: BASO % 0.7 % (0.0-1.0); EOS # 0.4 10^3/uL (0.0-0.50); EOS % 6.8 % (0.0-3.0); HEMATOCRIT 29.4 % (42.0-52.0); HEMOGLOBIN 9.2 g/dl (13.5-17.5); LYMPH # 1.3 10^3/uL (1.5-4.5); LYMPH % 20.8 % (24.0-44.0); MEAN CORPUSCULAR HEMOGLOBIN 29.3 pg (27.0-33.0); MEAN CORPUSCULAR HGB CONC 31.3 g/dl (32.0-36.5); MEAN CORPUSCULAR VOLUME 93.6 fl (80.0-96.0); MONO # 0.8 10^3/uL (0.0-0.8); MONO % 12.9 % (0.0-5.0); NEUTROPHILS # 3.6 10^3/uL (1.8-7.7); NEUTROPHILS % 57.8 % (36.0-66.0); PLATELET COUNT, AUTOMATED 228 10^3/uL (150-450); RED BLOOD COUNT 3.14 10^6/uL (4.30-6.10); WHITE BLOOD COUNT 6.1 10^3/uL (4.0-10.0)
[2019-02-27 13:45] LABS: BILIRUBIN,TOTAL 0.3 MG/DL (0.2-1.0); CALCIUM LEVEL 9.3 MG/DL (8.8-10.2); CREATININE FOR GFR 2.52 MG/DL (0.70-1.30); GLOMERULAR FILTRATION RATE 27.7 (>49); POTASSIUM SERUM 4.7 MEQ/L (3.5-5.1); TOTAL PROTEIN 6.3 GM/DL (6.4-8.2)
--- NOTE | 2019-02-27 15:08 | REP ---
Chest x-ray: Two views. History: Fever. Comparison study: August 08, 2018. Findings: The lungs are symmetrically aerated. No new infiltrate is seen. Pleural angles are sharp. Heart is not enlarged. There is an old slightly displaced healed rib fracture on the right. There are degenerative changes in the thoracic spine. Impression: No acute cardiopulmonary disease. Electronically Signed by Fuad Adorno MD 02/27/2019 08:18 P
== END ==
LOC: M WUC 10:46
PROVIDERS: ATTEND Physician Assistant
DX: R50.9 Fever, unspecified (principal)

== ENCOUNTER 2019-03-06 10:43 | Observation (INO) | payer MEDICARE, MEDICAID ==
[~2019-03-06] VITALS: Ht 167.6 cm; Wt 80.0 kg
[~2019-03-06 10:43] MED LIST changes: -DOXY100T16 PO; -ERYTOIN8 OU; -FLON1SPR NARES; -LORA1TAB12 PO; +LORA1TAB4 PO; -LORA2CON5 PO; +LORA2TAB14 PO; -LORA2TAB9 PO; -OMEP40CA2 PO; +OMEP40CA97 PO; -VENTAER INH
[2019-03-06] MEDS ORDERED: LORA2CON5 PO (11:38)
[2019-03-06] MEDS ORDERED: FLON1SPR NARES (11:38)
[2019-03-06 12:24] LABS: BASO % 0.1 % (0.0-1.0); EOS # 0.4 10^3/uL (0.0-0.50); EOS % 2.1 % (0.0-3.0); HEMATOCRIT 33.3 % (42.0-52.0); HEMOGLOBIN 10.6 g/dl (13.5-17.5); LYMPH # 0.5 10^3/uL (1.5-4.5); LYMPH % 3.2 % (24.0-44.0); MEAN CORPUSCULAR HGB CONC 31.8 g/dl (32.0-36.5); MEAN CORPUSCULAR VOLUME 94.3 fl (80.0-96.0); MONO # 1.1 10^3/uL (0.0-0.8); MONO % 6.8 % (0.0-5.0); NEUTROPHILS # 14.6 10^3/uL (1.8-7.7); NEUTROPHILS % 87.1 % (36.0-66.0); PLATELET COUNT, AUTOMATED 205 10^3/uL (150-450); RED BLOOD COUNT 3.53 10^6/uL (4.30-6.10); WHITE BLOOD COUNT 16.8 10^3/uL (4.0-10.0)
--- NOTE | 2019-03-06 12:45 | REP ---
Chest x-ray: Two views. History: New infiltrate on chest x-ray February 27, 2019. Comparison chest CT study October 10, 2018. Chest x-ray findings: There are multiple healed or healing bilateral rib fractures. No infiltrate is seen. Pleural angles are sharp. Heart is not enlarged. Pulmonary vasculature is not increased. Impression: Multiple bilateral old healed rib fractures. No acute infiltrate seen. Electronically Signed by Fuad Adorno MD 03/06/2019 01:05 P
[2019-03-06 13:04] LABS: CALCIUM LEVEL 9.9 MG/DL (8.8-10.2); GLOMERULAR FILTRATION RATE 36.2 (>49); POTASSIUM SERUM 4.3 MEQ/L (3.5-5.1)
[2019-03-06] MEDS ORDERED: ERYTOIN8 OU (16:13)
[2019-03-06] MEDS ORDERED: DOXY100T27 PO (16:13)
[2019-03-06] MEDS ORDERED: FINA5TAB2 PO (16:13)
[2019-03-06] MEDS ORDERED: VENTAER INH (16:13)
[2019-03-06] MEDS ORDERED: DALBAVANCIN 1,125 MG in D5W 250 ML IV ONE (16:30)
[2019-03-06] MEDS ORDERED: LORazepam 2 MG/ML VIAL (J2060) IM STA (16:55)
[2019-03-06] MEDS ORDERED: ACETAMINOPHEN 500 MG TAB PO ONE (17:00)
[2019-03-06] MEDS ORDERED: NS 1,000 ML IV ONE (19:00)
--- NOTE | 2019-03-06 19:25 | CR.PDOC ---
General Date of Consultation: Mar 06, 2019 Referring Provider: Clary Desai Attending Physician: ANTOINETTE BRAND MD Consultation Hospitalist consult note REASON FOR CONSULTATION/CHIEF COMPLAINT: right LE redness HISTORY OF PRESENT ILLNESS: Mr. Gerard is a 61-year-old male patient from [facility] brought in by staff for concern of fevers. Per the staff, he has had low temps of 100 yesterday that improved with Tylenol. They state he had low-grade temperatures of 99 starting end of last week, for which she was brought to urgent care on Saturday, and diagnosed with bronchitis and given doxycycline, which they state he is compliant with, as he receives [id number] care at [facility]. They brought him in because they were told he had a fever of 101.4 earlier today at daycare. However they state that he is otherwise like himself without any new complaints. They deny any recent chills, nausea, vomiting, abdominal pain, constipation, diarrhea, skin rashes, and loss of appetite of the patient. Hospitalist was consulted for concern of right lower extremity erythema for possible cellulitis. Patient does not allow any physical exam when examined at bedside in the ER and becomes belligerent and physical 1 attempting. Information obtained from his staff clarifies that his right lower extremity is always erythematous and has been treated for cellulitis in September this year. They state he picks at his lower legs often and is unhygienic overall, which is visible on exam. Per the staff, who have been with him since April 2018, they state he is otherwise like his normal self besides his temperature. ALLERGIES: Please see below. HOME MEDICATIONS: Please see below. PAST MEDICAL HISTORY: 1. Schizoaffective disorder 2. Hx of right femoral DVT, on Elig[place] 3. Hyperlipidemia 4. CKD stage III 5. Secondary hyperparathyroidism 6. 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 GERD PAST SURGICAL HISTORY: Right lower extremity surgery. SOCIAL HISTORY: lives at [facility], no drugs, alcohol, or illicit substances. REVIEW OF SYSTEMS: Patient is fast asleep and does not want to answer any questions, although he does awaken to his name and sternal rub. However due to his baseline MR, he is a very poor historian. Per his EMAIL PRODUCER and [facility] staff in the room, both confirm that he is essentially at his baseline currently. No recent chills, nausea, vomiting, abdominal pain, skin rashes, constipation or diarrhea. They state his right lower extremity is always erythematous and has not been oozing any additional fluids or pus. They denied patient complaining of any pain of his lower legs. They states that besides the fever, he is otherwise healthy and like his normal self. They deny the pt having any coughing or wheezing in the past few days. PHYSICAL EXAMINATION: Limited as the patient did not allow self or attending to touch and to examine him. One attempted, he kicked out his leg in an attempt to hit us. He did not allow us to listen to his heart or lungs or to unbandaged his right lower extremity. Per history or see staff, this is quite normal for him to burst out in anger. When reattempting to examine him, he repeated the same violent behavior. VITAL SIGNS: Please see below. GENERAL APPEARANCE: resting comfy in bed, NAD, baseline mental retardation HEENT: NCAT, dry mucous membrane PSYCHIATRIC: incoherent at times, lashing out, emotional, violently moving arms and legs attempting to kick anyone touching him LABORATORY DATA: Please see below. ASSESSMENT/PLAN: 1. Possible right lower extremity cellulitis: Patient did not allow any examination at all and became violent when attempting to unwrap his bandages. Per [facility] staff, his right lower extremity is always erythematous and often gets treated for cellulitis, most recently September this year. He was started on oral doxycycline last Saturday, currently being day 7 of his course, however he was started on this by urgent care for presumed bronchitis given his low-grade t emps. Patient is otherwise doing well per the [facility] staff, and infectious etiology is suspicious at this point given his clinical picture and information obtained from his day staff. He is not ill appearing, there is no lactic acidosis, and when asked how he is feeling, patient says "fine" and when asked if his leg is bothering him, he says "no." Chest x-ray and right lower extremity Doppler negative. We have recommended he get 1 dose of renally-dosed Dalvance, which will provide prolonged coverage for MRSA as well. This was discussed with ER Provider and also Pharmacist. It was relayed that pt is not ill-appearing, resting comfortably and of his normal state of health per his day-to-day staff accompanying him. His [facility] staff has been advised to bring him back immediately should he appear unwell or if they have any concerns. They were also explained that pt may still have low-grade temps for the next few days as antibiotic takes his course. All questions were answered. The remainder of his medical conditions, he is to follow-up with his regular physicians and continue her current outpatient regimen. His renal function is at baseline. Vital Signs/I&O Vital Signs Date Time Temp Pulse Resp B/P (MAP) Pulse Ox O2 Delivery O2 Flow Rate FiO2 03/06/19 18:29 101.1 123 22 113/65 (81) 93 Room Air Laboratory Data Labs 24H Laboratory Tests 2 03/06/19 12:16: Immature Granulocyte % (Auto) 0.7, White Blood Count 16.8H, Red Blood Count 3.53L, Hemoglobin 10.6L, Hematocrit 33.3L, Mean Corpuscular Volume 94.3, Mean Corpuscular Hemoglobin 30.0, Mean Corpuscular Hemoglobin Concent 31.8L, Red Cell Distribution Width 14.6H, Platelet Count 205, Neutrophils (%) (Auto) 87.1H, Lymphocytes (%) (Auto) 3.2L, Monocytes (%) (Auto) 6.8H, Eosinophils (%) (Auto) 2.1, Basophils (%) (Auto) 0.1, Neutrophils # (Auto) 14.6H, Lymphocytes # (Auto) 0.5L, Monocytes # (Auto) 1.1H, Eosinophils # (Auto) 0.4, Basophils # (Auto) 0.0, Nucleated Red Blood Cells % (auto) 0.0, D-Dimer, Quantitative 312.68, Anion Gap 7L, Glomerular Filtration Rate 36.2L, Blood Urea Nitrogen 34H, Creatinine 2.00H, Sodium Level 139, Potassium Level 4.3, Chloride Level 102, Carbon Dioxide Level 30, Calcium Level 9.9 03/06/19 13:41: POC Lactate (Misc Panel) 1.42 CBC/BMP Laboratory Tests 03/06/19 12:16 Red Blood Count 3.53 L, Mean Corpuscular Volume 94.3, Mean Corpuscular Hemoglobin 30.0, Mean Corpuscular Hemoglobin Concent 31.8 L, Red Cell Distribution Width 14.6 H, Neutrophils (%) (Auto) 87.1 H, Lymphocytes (%) (Auto) 3.2 L, Monocytes (%) (Auto) 6.8 H, Eosinophils (%) (Auto) 2.1, Basophils (%) (Auto) 0.1, Neutrophils # (Auto) 14.6 H, Lymphocytes # (Auto) 0.5 L, Monocytes # (Auto) 1.1 H, Eosinophils # (Auto) 0.4, Basophils # (Auto) 0.0, Calcium Level 9.9 Allergies Coded Allergies: NSAIDS (Non-Steroidal Anti-Inflamma (Verified Adverse Reaction, Intermediate, GERD , LIVER ISSUES, 02/18/19) Home Medications Scheduled Apixaban (Eliquis) 2.5 Mg Tab, 2.5 MG PO BID, (Reported) Atorvastatin Calcium (Atorvastatin Calcium) 10 Mg Tab, 10 MG PO DAILY, (Repor brandon) Azelastine HCl (Azelastine HCl) 0.1 % Spr, 2 SPRAY NA BID, (Reported) Benztropine Mesylate (Benztropine Mesylate) 1 Mg Tab, 1 MG PO BID, (Reported) Calcitriol (Rocaltrol) 0.25 Mcg Cap, 0.25 MCG PO 5XW, (Reported) SATURDAY-SATURDAY Carvedilol (Carvedilol) 6.25 Mg Tab, 6.25 MG PO BID, (Reported) Clonazepam (Clonazepam) 1 Mg Tab, 1 MG PO TID, (Reported) 0800/1600/QHS Docusate Sodium (Colace) 100 Mg Cap, 200 MG PO BID, (Reported) Doxycycline Monohydrate (Doxycycline Monohydrate) 100 Mg Tablet, 100 MG PO BID, (Reported) FOR 10 DAYS, STARTED 02/27 Ergocalciferol (Vitamin D2) (Vitamin D2) 50,000 Unit Cap, 50,000 UNIT PO 1XWK, (Reported) TAKES ON SATURDAY NIGHTS Erythromycin Base (Erythromycin) 3.5 Gm Oint...g., 1 APLCT OU TID, (Reported) apply 1 cm ribbon into the lower conjunctival sac Eyelid Cleanser Combination 5 (Ocusoft Lid Scrub) 1 Each Med..pad, 1 EACH TOP BID, (Reported) USES TO REMOVE OIL AND DEBRIS ASSOCIATED WITH DRY EYES Ferrous Gluconate (Ferrous Gluconate) 324 Mg Tab, 324 MG PO DAILY, (Reported) Finasteride (Finasteride) 5 Mg Tablet, 5 MG PO QHS, (Reported) Fluticasone Propionate (Flonase Allergy Relief) 9.9 Ml [place].susp, 2 SPRAY NARES QHS, (Reported) Haloperidol (Haloperidol) 5 Mg Tab, 2.5 MG PO BID, (Reported) Hydroxyzine HCl (Hydroxyzine HCl) 25 Mg Tab, 25 MG PO TID, (Reported) Lamotrigine (Lamictal) 200 Mg Tab, 200 MG PO BID, (Reported) Edgeworth Carbonate (Edgeworth Carbonate) 150 Mg Cap, 150 MG PO BID, (Reported) Multivitamins (Thera M Plus Tablet) 1 Tab Tab, 1 TAB PO DAILY, (Reported) Nystatin (Nystatin Powder) 100,000 Unit/Gm Pow, 1 DOSE TOP BID, (Reported) APPLY BETWEEN TOES Olanzapine (Zyprexa) 5 Mg Tab, 5 MG PO TID, (Reported) AM/NOON/1600 Olanzapine (Zyprexa) 10 Mg Tab, 10 MG PO QHS, (Reported) Omeprazole (Omeprazole) 40 Mg Cap, 40 MG PO DAILY, (Reported) Scheduled PRN Albuterol Sulfate (Ventolin Hfa) 18 Gm Hfa.aer.ad, 2 PUFF INH Q4H PRN for SHORTNESS OF BREATH, (Reported) diphenhydrAMINE HCl (Benadryl Allergy) 25 Mg Tablet, 50 MG PO DAILY PRN for ANX IETY/AGITATION, (Reported) GME ATTESTATION GME ATTESTATION My faculty preceptor for this patient encounter was physically present during the encounter and was fully available. All aspects of the patient interview, examination, medical decision making process, and medical care plan development were reviewed and approved by the faculty preceptor. The faculty preceptor is aware and concurs with the plan as stated in the body of this note and will attest to such by his/her cosignature. ATTENDING NOTE I have personally seen and examined the patient . I agree with the finding and the plan of care as documented above in the resident's note. Patient is very uncooperative to exam . he di tell that his belly was hurting but had a full lunch with no issues. As per staff from [facility] he is at his baseline mental status. ED provider to treat the cellulitis with Dalvance and discharge from the ED. JEAN-PAUL SPENCE DO Mar 06, 2019 19:25 ANTOINETTE BRAND MD Mar 06, 2019 23:26
[2019-03-06] MEDS: IPRATROPIUM 0.5MG/ALBUTEROL 2.5MG INH SOL UD 3ML (DUONEB)(J7620) NEB SCH (20:00)
[2019-03-06] MEDS ORDERED: MOM 30ML SUSPENSION UDC PO PRN (20:30)
[2019-03-06] MEDS ORDERED: ACETAMINOPHEN TAB 650MG DOSE (2X325MG) PO PRN (20:30)
[2019-03-06] MEDS ORDERED: MAALOX 30 ML SUSP *UDC PO PRN (20:30)
--- NOTE | 2019-03-06 20:40 | HPEPDOC ---
General Date of Admission 03/06/19 Date of Service: Mar 06, 2019 Primary Care Physician: A Attending Physician: LIOR WORTHINGTON MD Chief Complaint The patient is a 63-year-old male admitted with a reason for visit of Fever, Skin Problem. Source: Caregiver Exam Limitations: Mild cognitive slowing Timing/Duration: Unsure Severity: Moderate Associated Symptoms: Cough, Shortness of breath History of Present Illness Evangeline [age] years old white male with intellectual disability, was seen in the ED by internal medicine group and was scheduled to be discharged home after getting IV dalvance for right lower leg cellulitis. Called in by PA from ED that they don't feel comfortable discharging patient home as patient was agitated now. He has calmed down but also has cough and shortness of breath. Patient is being admitted with acute bronchitis, exacerbation of COPD as patient is active smoker and cellulitis right lower extremity Home Medications Scheduled Apixaban (Eliquis) 2.5 Mg Tab, 2.5 MG PO BID, (Reported) Atorvastatin Calcium (Atorvastatin Calcium) 10 Mg Tab, 10 MG PO DAILY, (Reported) Azelastine HCl (Azelastine HCl) 0.1 % Spr, 2 SPRAY NA BID, (Reported) Benztropine Mesylate (Benztropine Mesylate) 1 Mg Tab, 1 MG PO BID, (Reported) Calcitriol (Rocaltrol) 0.25 Mcg Cap, 0.25 MCG PO 5XW, (Reported) SATURDAY-SATURDAY Carvedilol (Carvedilol) 6.25 Mg Tab, 6.25 MG PO BID, (Reported) Clonazepam (Clonazepam) 1 Mg Tab, 1 MG PO TID, (Reported) 0800/1600/QHS Docusate Sodium (Colace) 100 Mg Cap, 200 MG PO BID, (Reported) Doxycycline Monohydrate (Doxycycline Monohydrate) 100 Mg Tablet, 100 MG PO BID, (Reported) FOR 10 DAYS, STARTED 02/27 Ergocalciferol (Vitamin D2) (Vitamin D2) 50,000 Unit Cap, 50,000 UNIT PO 1XWK, (Reported) TAKES ON SATURDAY NIGHTS Erythromycin Base (Erythromycin) 3.5 Gm Oint...g., 1 APLCT OU TID, (Reported) apply 1 cm ribbon into the lower conjunctival sac Eyelid Cleanser Combination 5 (Ocusoft Lid Scrub) 1 Each Med..pad, 1 EACH TOP BID, (Reported) USES TO REMOVE OIL AND DEBRIS ASSOCIATED WITH DRY EYES Ferrous Gluconate (Ferrous Gluconate) 324 Mg Tab, 324 MG PO DAILY, (Reported) Finasteride (Finasteride) 5 Mg Tablet, 5 MG PO QHS, (Reported) Fluticasone Propionate (Flonase Allergy Relief) 9.9 Ml Gregory.susp, 2 SPRAY NARES QHS, (Reported) Haloperidol (Haloperidol) 5 Mg Tab, 2.5 MG PO BID, (Reported) Hydroxyzine HCl (Hydroxyzine HCl) 25 Mg Tab, 25 MG PO TID, (Reported) Lamotrigine (Lamictal) 200 Mg Tab, 200 MG PO BID, (Reported) Pitkin Carbonate (Pitkin Carbonate) 150 Mg Cap, 150 MG PO BID, (Reported) Multivitamins (Thera M Plus Tablet) 1 Tab Tab, 1 TAB PO DAILY, (Reported) Nystatin (Nystatin Powder) 100,000 Unit/Gm Pow, 1 DOSE TOP BID, (Reported) APPLY BETWEEN TOES Olanzapine (Zyprexa) 5 Mg Tab, 5 MG PO TID, (Reported) AM/NOON/1600 Olanzapine (Zyprexa) 10 Mg Tab, 10 MG PO QHS, (Reported) Omeprazole (Omeprazole) 40 Mg Cap, 40 MG PO DAILY, (Reported) Scheduled PRN Albuterol Sulfate (Ventolin Hfa) 18 Gm Hfa.aer.ad, 2 PUFF INH Q4H PRN for SHORTNESS OF BREATH, (Reported) diphenhydrAMINE HCl (Benadryl Allergy) 25 Mg Tablet, 50 MG PO DAILY PRN for ANXIETY/AGITATION, (Reported) Allergies Coded Allergies: NSAIDS (Non-Steroidal Anti-Inflamma (Verified Adverse Reaction, Intermediate, GERD , LIVER ISSUES, 02/18/19) Past Medical History Medical History DVT right leg. Pleural effusion intellectually challenged Surgical History Close head injury in the past, right leg surgery Social History * Smoker: current smoker Alcohol: Denies Drugs: denies A-FIB/CHADSVASC A-FIB History Current/History of A-Fib/PAF?: No Review of Systems Constitutional: Reports: Other (unable to obtained review of systems secondary to patient's mental status and agitation) Physical Examination General Exam: Positive: Alert, Other (, not cooperative. Agitated) Eye Exam: Positive: PERRLA, Conjunctiva & lids normal ENT Exam: Positive: Atraumatic, Mucous membr. moist/pink Neck Exam: Positive: Supple, JVD Chest Exam: Positive: Wheezing, Other (bilateral expiratory wheezing) Heart Exam: Positive: Rate Normal, Normal S1, Normal S2 Abdomen Exam: Positive: Normal bowel sounds Extremity Exam: Positive: Normal pulses Skin Exam: Positive: Other skin issue (, chronic ischemic changes. Right lower extremity) Neuro Exam: Positive: Other (, unable to do neuro exam) Psych Exam: Positive: Other (. Agitated) Vital Signs Vital Signs Date Time Temp Pulse Resp B/P (MAP) Pulse Ox O2 Delivery O2 Flow Rate FiO2 03/06/19 20:12 100.3 119 20 114/60 (78) 94 03/06/19 18:29 Room Air Laboratory Data Labs 24H Laboratory Tests 2 03/06/19 12:16: Immature Granulocyte % (Auto) 0.7, White Blood Count 16.8H, Red Blood Count 3.53L, Hemoglobin 10.6L, Hematocrit 33.3L, Mean Corpuscular Volume 94.3, Mean Corpuscular Hemoglobin 30.0, Mean Corpuscular Hemoglobin Concent 31.8L, Red Cell Distribution Width 14.6H, Platelet Count 205, Neutrophils (%) (Auto) 87.1H, Lymphocytes (%) (Auto) 3.2L, Monocytes (%) (Auto) 6.8H, Eosinophils (%) (Auto) 2.1, Basophils (%) (Auto) 0.1, Neutrophils # (Auto) 14.6H, Lymphocytes # (Auto) 0.5L, Monocytes # (Auto) 1.1H, Eosinophils # (Auto) 0.4, Basophils # (Auto) 0.0, Nucleated Red Blood Cells % (auto) 0.0, D-Dimer, Quantitative 312.68, Anion Gap 7L, Glomerular Filtration Rate 36.2L, Blood Urea Nitrogen 34H, Creatinine 2.00H, Sodium Level 139, Potassium Level 4.3, Chloride Level 102, Carbon Dioxide Level 30, Calcium Level 9.9 03/06/19 13:41: POC Lactate (Misc Panel) 1.42 CBC/BMP Laboratory Tests 03/06/19 12:16 Red Blood Count 3.53 L, Mean Corpuscular Volume 94.3, Mean Corpuscular Hemoglobin 30.0, Mean Corpuscular Hemoglobin Concent 31.8 L, Red Cell Distribution Width 14.6 H, Neutrophils (%) (Auto) 87.1 H, Lymphocytes (%) (Auto) 3.2 L, Monocytes (%) (Auto) 6.8 H, Eosinophils (%) (Auto) 2.1, Basophils (%) (Auto) 0.1, Neutrophils # (Auto) 14.6 H, Lymphocytes # (Auto) 0.5 L, Monocytes # (Auto) 1.1 H, Eosinophils # (Auto) 0.4, Basophils # (Auto) 0.0, Calcium Level 9.9 Microbiology Microbiology 03/06/19 Respiratory Virus Panel (PCR) ([facility]) - Final, Complete Human Rhinovirus/Enterovirus Problems (1) COPD exacerbation Status: Acute Problem Text: Admitted under observation to medical floor Solu-Medrol 60 mg IV every 8 hours DuoNeb every 4 hours and Proventil nebulizer when necessary every hour O2 support 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 for Atypical coverage A.m. labs including CBC (3) Cellulitis of right leg Status: Chronic Problem Text: Patient received a dose of dalvance in the ED Continue monitoring clinical condition Will order blood cultures 2, febrile again Dressing as per nursing Plan / VTE VTE Prophylaxis Ordered?: Yes LIOR WORTHINGTON MD Mar 06, 2019 20:40
[2019-03-06] MEDS ORDERED: IPRATROPIUM 0.5MG/ALBUTEROL 2.5MG INH SOL UD 3ML (DUONEB)(J7620) NEB PRN (20:45)
[2019-03-06] MEDS ORDERED: VITAMIN D 50,000 UNITS CAPSULE (ERGOCALCIFEROL 1.25MG) PO SCH (21:00)
[2019-03-06] MEDS ORDERED: FINASTERIDE 5 MG TAB PO SCH (21:00)
[2019-03-06] MEDS ORDERED: OLANZapine 10 MG TAB PO SCH (21:00)
[2019-03-06] MEDS ORDERED: FLUTICASONE PROP 0.05% NASAL SPRAY 16 GM (FLONASE) NARES SCH (21:00)
[2019-03-06] MEDS ORDERED: DOCUSATE SODIUM 100 MG CAP PO SCH (21:00)
[2019-03-06] MEDS: NYSTATIN 100,000 UNITS/GM TOPICAL PWD 15 GM TOP SCH (21:00)
[2019-03-06] MEDS: hydrOXYzine 25 MG TAB PO SCH (21:10)
[2019-03-06] MEDS: APIXABAN 2.5 MG TAB (ELIQUIS) PO SCH (21:11)
[2019-03-06] MEDS: DOCUSATE SODIUM 100 MG CAP PO SCH (21:11)
[2019-03-06] MEDS: clonazePAM 1 MG TAB PO SCH (21:12)
[2019-03-06] MEDS: haloperidoL 5 MG TAB PO SCH (21:12)
[2019-03-06] MEDS: methylPREDNISolone INJ 125 MG/2 ML VIAL (J2930) IV SCH (21:12)
[2019-03-06] MEDS: lamoTRIgine 100MG TAB PO SCH (21:12)
[2019-03-06] MEDS: ERYTHROMYCIN OPHTH OINT OU SCH (21:13)
[2019-03-06] MEDS: CARVedilol 6.25 MG TAB PO SCH (21:24)
[2019-03-06] MEDS: LITHIUM CARBONATE 150 MG CAP PO SCH (21:54)
[2019-03-06] MEDS ORDERED: HALOPERIDOL 5 MG/ML VIAL (J1630) IM STA (22:51)
[2019-03-07] MEDS: IPRATROPIUM 0.5MG/ALBUTEROL 2.5MG INH SOL UD 3ML (DUONEB)(J7620) NEB SCH ×4 (04:00→11:41)
[2019-03-07] MEDS: methylPREDNISolone INJ 125 MG/2 ML VIAL (J2930) IV SCH (05:47)
[2019-03-07 06:00] VITALS: BP 116/67
[2019-03-07] MEDS ORDERED: BUDESONIDE 0.25 MG/2 ML INHALATION SUSPENSION INH SCH (08:00)
[2019-03-07] MEDS ORDERED: OLANZapine 5 MG TAB PO SCH (09:00)
[2019-03-07] MEDS: LITHIUM CARBONATE 150 MG CAP PO SCH (09:00)
[2019-03-07] MEDS: NYSTATIN 100,000 UNITS/GM TOPICAL PWD 15 GM TOP SCH (09:00)
[2019-03-07] MEDS: DOCUSATE SODIUM 100 MG CAP PO SCH ×2 (09:00→10:25)
[2019-03-07] MEDS: ERYTHROMYCIN OPHTH OINT OU SCH (09:00)
[2019-03-07] MEDS ORDERED: ATORVASTATIN 10 MG TAB PO SCH (09:00)
[2019-03-07] MEDS ORDERED: ENOXAPARIN 40 MG/0.4 ML SYRINGE (J1650) SC SCH (09:00)
[2019-03-07] MEDS: MULTIVITAMINS/MINERALS THERAP 1 TAB PO SCH ×2 (09:00→10:26)
[2019-03-07] MEDS: OMEPRAZOLE 20 MG CAP PO SCH ×2 (09:00→10:24)
[2019-03-07] MEDS ORDERED: AZITHROMYCIN 250 MG TAB PO SCH (09:00)
[2019-03-07] MEDS: FERROUS GLUCONATE 324 MG TAB PO SCH ×2 (09:00→10:26)
[2019-03-07] MEDS: haloperidoL 5 MG TAB PO SCH (10:23)
[2019-03-07] MEDS: hydrOXYzine 25 MG TAB PO SCH (10:23)
[2019-03-07] MEDS: lamoTRIgine 100MG TAB PO SCH (10:24)
[2019-03-07] MEDS: clonazePAM 1 MG TAB PO SCH (10:25)
[2019-03-07 10:26] VITALS: BP 128/70
[2019-03-07] MEDS: APIXABAN 2.5 MG TAB (ELIQUIS) PO SCH (10:26)
[2019-03-07] MEDS: CARVedilol 6.25 MG TAB PO SCH (10:26)
--- NOTE | 2019-03-07 12:15 | DS.PDOC ---
Discharge Summary General Date of Admission Mar 06, 2019 at 21:03 Date of Discharge 03/07/19 Attending Physician: ANTOINETTE BRAND MD Discharge Summary PROCEDURES PERFORMED DURING STAY: None. ADMITTING DIAGNOSES: 1. fever DISCHARGE DIAGNOSES: 1. 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 HISTORY OF PRESENT ILLNESS: Mr. Gerard is a 63-year-old male patient from [facility] brought in by staff for concern of fevers. Per the staff, he has had low temps of 100 yesterday that improved with Tylenol. They state he had low-grade temperatures of 99 starting end of last week, for which she was brought to urgent care on Saturday, and diagnosed with bronchitis and given doxycycline, which they state he is compliant with, as he receives dnvnve-alr-mpwdi care at [facility]. They brought him in because they were told he had a fever of 101.4 earlier today at daycare. However they state that he is otherwise like himself without any new complaints. They deny any recent chills, nausea, vomiting, abdominal pain, constipation, diarrhea, skin rashes, and loss of appetite of the patient. Hospitalist was consulted for concern of right lower extremity erythema for possible cellulitis. He was initially belligerent and refused exam, kicking violently when attempting to auscultate or undress leg wrapping. ER was advised to give him 1 dose renally-dosed Dalvance and send home given that he looked well and his own [facility] staff was not concerned about his health being out of the ordinary. He received Dalvance, but continued being aggressive, and thus was admitted. HOSPITAL COURSE: Positive for rhinovirus/enterovirus. Patient had no lactic acidosis. Was afebrile the next morning. He was of better mentation the next morning and allowed a physical exam this time, which revealed clear lungs bilaterally, no accessory muscle use. Left lower extremity was erythematous and showed signs of chronic skin changes with visible lesions supporting his history of picking at his wounds, but no sign of infection. He was cleared for discharge. His [facility] staff was informed of his viral bronchitis, and advised to implement respiratory precautions at their facility and symtomatic management for his fever, cough and any bronchospasm. Patient was otherwise doing well and has no complaints, and per staff, no longer coughing. Is medically stable and at his baseline per his [employer] rep. DISCHARGE MEDICATIONS: Please see below. ALLERGIES: Please see below. PHYSICAL EXAMINATION ON DISCHARGE: VITAL SIGNS: Please see below. GENERAL: resting comfy in bed, NAD, poor historian at baseline given cognitive deficits, poor hygiene HEENT: NCAT, moist weeks membranes, poor dentition NECK: Supple CARDIOVASCULAR EXAMINATION: Regular rate and rhythm RESPIRATORY EXAMINATION: Clear throughout, no accessory muscle use, no adventitious sounds, equal chest rise ABDOMINAL EXAMINATION: Soft nontender nondistended EXTREMITIES: Able to move all extremities SKIN: LLE erythematous. No edema or warmth or tenderness. No signs of infection, no purulent drainage or abscess. Appears chronic venous stasis changes PSYCHIATRIC EXAMINATION: Baseline psychiatric issues, aggressive and combative at times, cognitive deficits LABORATORY DATA: Please see below. IMAGIN03/06/2019 CXR: Multiple bilateral old healed rib fractures. No acute infiltrate seen. PROGNOSIS: Fair ACTIVITY: As tolerated. DIET: 2G sodium DISPOSITION: Back to [facility] DISCHARGE INSTRUCTIONS: 1. Follow-up with PCP in one week 2. Supportive care for cough. DISCHARGE CONDITION: Stable. TIME SPENT ON DISCHARGE: 35 minutes. Vital Signs/I&Os Vital Signs Date Time Temp Pulse Resp B/P (MAP) Pulse Ox O2 Delivery O2 Flow Rate FiO2 03/07/19 10:26 100 128/70 03/07/19 06:00 97.8 18 93 03/06/19 18:29 Room Air I&O- Last 24 Hours up to 6 AM 03/07/19 06:00 Intake Total 2206.25 ml Output Total 350 ml Balance 1856.25 ml Laboratory Data Labs 24H Laboratory Tests 2 03/06/19 12:16: Immature Granulocyte % (Auto) 0.7, White Blood Count 16.8H, Red Blood Count 3.53L, Hemoglobin 10.6L, Hematocrit 33.3L, Mean Corpuscular Volume 94.3, Mean Corpuscular Hemoglobin 30.0, Mean Corpuscular Hemoglobin Concent 31.8L, Red Cell Distribution Width 14.6H, Platelet Count 205, Neutrophils (%) (Auto) 87.1H, Lymphocytes (%) (Auto) 3.2L, Monocytes (%) (Auto) 6.8H, Eosinophils (%) (Auto) 2.1, Basophils (%) (Auto) 0.1, Neutrophils # (Auto) 14.6H, Lymphocytes # (Auto) 0.5L, Monocytes # (Auto) 1.1H, Eosinophils # (Auto) 0.4, Basophils # (Auto) 0.0, Nucleated Red Blood Cells % (auto) 0.0, D-Dimer, Quantitative 312.68, Anion Gap 7L, Glomerular Filtration Rate 36.2L, Blood Urea Nitrogen 34H, Creatinine 2.00H, Sodium Level 139, Potassium Level 4.3, Chloride Level 102, Carbon Dioxide Level 30, Calcium Level 9.9 03/06/19 13:41: POC Lactate (Misc Panel) 1.42 CBC/BMP Laboratory Tests 03/06/19 12:16 Red Blood Count 3.53 L, Mean Corpuscular Volume 94.3, Mean Corpuscular Hemoglobin 30.0, Mean Corpuscular Hemoglobin Concent 31.8 L, Red Cell Distribution Width 14.6 H, Neutrophils (%) (Auto) 87.1 H, Lymphocytes (%) (Auto) 3.2 L, Monocytes (%) (Auto) 6.8 H, Eosinophils (%) (Auto) 2.1, Basophils (%) (Auto) 0.1, Neutrophils # (Auto) 14.6 H, Lymphocytes # (Auto) 0.5 L, Monocytes # (Auto) 1.1 H, Eosinophils # (Auto) 0.4, Basophils # (Auto) 0.0, Calcium Level 9.9 Microbiology Microbiology 03/06/19 Respiratory Virus Panel (PCR) (CAROL) - Final, Complete Human Rhinovirus/Enterovirus Discharge Medications Scheduled Apixaban (Eliquis) 2.5 Mg Tab, 2.5 MG PO BID, (Reported) Atorvastatin Calcium (Atorvastatin Calcium) 10 Mg Tab, 10 MG PO DAILY, (Reported) Azelastine HCl (Azelastine HCl) 0.1 % Spr, 2 SPRAY NA BID, (Reported) Benztropine Mesylate (Benztropine Mesylate) 1 Mg Tab, 1 MG PO BID, (Reported) Calcitriol (Rocaltrol) 0.25 Mcg Cap, 0.25 MCG PO 5XW, (Reported) SATURDAY-SATURDAY Carvedilol (Carvedilol) 6.25 Mg Tab, 6.25 MG PO BID, (Reported) Clonazepam (Clonazepam) 1 Mg Tab, 1 MG PO TID, (Reported) 0800/1600/QHS Docusate Sodium (Colace) 100 Mg Cap, 200 MG PO BID, (Reported) Ergocalciferol (Vitamin D2) (Vitamin D2) 50,000 Unit Cap, 50,000 UNIT PO 1XWK, (Reported) TAKES ON SATURDAY NIGHTS Erythromycin Base (Erythromycin) 3.5 Gm Oint...g., 1 APLCT OU TID, (Reported) apply 1 cm ribbon into the lower conjunctival sac Eyelid Cleanser Combination 5 (Ocusoft Lid Scrub) 1 Each Med..pad, 1 EACH TOP BID, (Reported) USES TO REMOVE OIL AND DEBRIS ASSOCIATED WITH DRY EYES Ferrous Gluconate (Ferrous Gluconate) 324 Mg Tab, 324 MG PO DAILY, (Reported) Finasteride (Finasteride) 5 Mg Tablet, 5 MG PO QHS, (Reported) Fluticasone Propionate (Flonase Allergy Relief) 9.9 Ml [place].susp, 2 SPRAY NARES QHS, (Reported) Haloperidol (Haloperidol) 5 Mg Tab, 2.5 MG PO BID, (Reported) Hydroxyzine HCl (Hydroxyzine HCl) 25 Mg Tab, 25 MG PO TID, (Reported) Lamotrigine (Lamictal) 200 Mg Tab, 200 MG PO BID, (Reported) Saucier Carbonate (Saucier Carbonate) 150 Mg Cap, 150 MG PO BID, (Reported) Multivitamins (Thera M Plus Tablet) 1 Tab Tab, 1 TAB PO DAILY, (Reported) Nystatin (Nystatin Powder) 100,000 Unit/Gm Pow, 1 DOSE TOP BID, (Reported) APPLY BETWEEN TOES Olanzapine (Zyprexa) 5 Mg Tab, 5 MG PO TID, (Reported) AM/NOON/1600 Olanzapine (Zyprexa) 10 Mg Tab, 10 MG PO QHS, (Reported) Omeprazole (Omeprazole) 40 Mg Cap, 40 MG PO DAILY, (Reported) Scheduled PRN Albuterol Sulfate (Ventolin Hfa) 18 Gm Hfa.aer.ad, 2 PUFF INH Q4H PRN for SHORTNESS OF BREATH, (Reported) diphenhydrAMINE HCl (Benadryl Allergy) 25 Mg Tablet, 50 MG PO DAILY PRN for ANXIETY/AGITATION, (Reported) Allergies Coded Allergies: NSAIDS (Non-Steroidal Anti-Inflamma (Verified Adverse Reaction, Intermediate, GERD , LIVER ISSUES, 02/18/19) GME ATTESTATION GME ATTESTATION My faculty preceptor for this patient encounter was physically present during the encounter and was fully available. All aspects of the patient interview, examination, medical decision making process, and medical care plan development were reviewed and approved by the faculty preceptor. The faculty preceptor is aware and concurs with the plan as stated in the body of this note and will attest to such by his/her cosignature. ATTENDING NOTE I saw and examined the patient. I agree with the finding and the plan of care as documented in the resident's note. I spent 35 mins in counselling the patient and coordinating the discharge. JEAN-PAUL SPENCE DO Mar 07, 2019 12:15 ANTOINETTE BRAND MD Mar 14, 2019 09:20
--- NOTE | 2019-03-07 19:12 | ECGEPIP ---
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
[2019-03-09] MEDS ORDERED: CALCITRIOL 0.25 MCG CAP (S0169) PO SCH (09:00)
== END 2019-03-07 13:05 | disposition home or self-care (01) ==
LOC: M ED 10:43 → M ED INP 21:03 → M MSPAV 22:29
PROVIDERS: ADMIT Internal Medicine; ATTEND Internal Medicine Nephrology
DX: J20.6 Acute bronchitis due to rhinovirus (principal); F25.9 Schizoaffective disorder, unspecified; Z86.718 Personal history of other venous thrombosis and embolism; Z79.01 Long term (current) use of anticoagulants; E78.49 Other hyperlipidemia; N18.3 Chronic kidney disease, stage 3 (moderate); N25.81 Secondary hyperparathyroidism of renal origin; D63.1 Anemia in chronic kidney disease; K21.9 Gastro-esophageal reflux disease without esophagitis; L03.115 Cellulitis of right lower limb; F17.210 Nicotine dependence, cigarettes, uncomplicated; Z79.899 Other long term (current) drug therapy
CPT/HCPCS: 36415; 71046; 80048; 83605; 85025; 85379; 87486; 87581; 87633; 87798; 93005; 96361; 96372; 96374; 96375; 96376; 99284; G0378; J0875; J1630; J2060; J2930

== ENCOUNTER → 2019-03-26 | Outpatient (REF) | payer MEDICARE, MEDICAID ==
[~2019-03-26] MED LIST changes: +DOXY100T16 PO; +ERYTOIN8 OU; +FLON1SPR NARES; +LORA1TAB12 PO; -LORA1TAB4 PO; +LORA2CON5 PO; -LORA2TAB14 PO; +LORA2TAB9 PO; +OMEP40CA2 PO; -OMEP40CA97 PO; +VENTAER INH
[2019-03-26 14:12] LABS: PERCENT SATURATION 47.9 % (19.7-50.0)
== END ==
LOC: M LAB REF 13:33
PROVIDERS: ATTEND Nurse Practitioner Family
DX: D64.9 Anemia, unspecified (principal)

== ENCOUNTER → 2019-07-30 | Outpatient (REF) | payer MEDICARE, MEDICAID ==
[~2019-07-30] MED LIST changes: -DOXY100T16 PO; +DOXY100T27 PO; -OMEP40CA2 PO; +OMEP40CA97 PO
[2019-07-30 13:16] LABS: BASO % 0.4 % (0.0-1.0); EOS # 0.3 10^3/uL (0.0-0.5); EOS % 3.9 % (0.0-3.0); HEMATOCRIT 35.2 % (42.0-52.0); LYMPH # 1.1 10^3/uL (1.5-5.0); LYMPH % 14.4 % (24.0-44.0); MEAN CORPUSCULAR HEMOGLOBIN 30.2 pg (27.0-33.0); MEAN CORPUSCULAR HGB CONC 31.3 g/dl (32.0-36.5); MEAN CORPUSCULAR VOLUME 96.7 fl (80.0-96.0); MONO # 0.8 10^3/uL (0.0-0.8); MONO % 10.9 % (0.0-5.0); NEUTROPHILS # 5.2 10^3/uL (1.5-8.5); NEUTROPHILS % 69.7 % (36.0-66.0); PLATELET COUNT, AUTOMATED 215 10^3/uL (150-450); RED BLOOD COUNT 3.64 10^6/uL (4.30-6.10); WHITE BLOOD COUNT 7.4 10^3/uL (4.0-10.0)
[2019-07-30 13:32] LABS: ALBUMIN 3.3 GM/DL (3.2-5.2); BILIRUBIN,TOTAL 0.6 MG/DL (0.2-1.0); CALCIUM LEVEL 9.3 MG/DL (8.8-10.2); CHOLESTEROL RISK RATIO 4.547 (<5); CREATININE FOR GFR 1.95 MG/DL (0.70-1.30); GLOMERULAR FILTRATION RATE 37.2 (>49); LITHIUM LEVEL 0.41 MEQ/L (0.60-1.20); POTASSIUM SERUM 4.5 MEQ/L (3.5-5.1); THYROID STIMULATING HORMONE 0.688 uIU/ML (0.358-3.740); TOTAL PROTEIN 6.5 GM/DL (6.4-8.2)
[2019-07-30 14:21] LABS: HEMOGLOBIN A1c 6.5 %
== END ==
LOC: M LABDRWAD 12:52
PROVIDERS: ATTEND Physician Assistant
DX: F25.9 Schizoaffective disorder, unspecified (principal); Z79.899 Other long term (current) drug therapy

== ENCOUNTER → 2019-10-13 | Outpatient (REF) | payer MEDICARE, MEDICAID ==
[~2019-10-13] MED LIST changes: -LORA1TAB12 PO; +LORA1TAB4 PO; +LORA2TAB14 PO; -LORA2TAB9 PO; +OLAN5TAB PO; +PRED10TA2 PO
== END ==
LOC: M LAB REF 16:02
PROVIDERS: ATTEND Surgery
DX: L97.312 Non-pressure chronic ulcer of right ankle with fat layer exposed (principal); L02.413 Cutaneous abscess of right upper limb

== ENCOUNTER 2019-10-27 09:13 | Inpatient (IN) | payer MEDICARE, MEDICAID ==
[~2019-10-27] VITALS: Ht 167.6 cm; Wt 88.0 kg
[2019-10-27] VITALS (7 sets, daily range): BP systolic 86–123; BP diastolic 56–73
[~2019-10-27 09:13] MED LIST changes: -OLAN5TAB PO; -PRED10TA2 PO
[2019-10-27] MEDS ORDERED: methylPREDNISolone INJ 125 MG/2 ML VIAL (J2930) IV ONE (09:45)
[2019-10-27] MEDS: IPRATROPIUM 0.5MG/ALBUTEROL 2.5MG INH SOL UD 3ML (DUONEB)(J7620) NEB PRN ×3 (09:50→10:50)
[2019-10-27 09:53] LABS: ABG BASE EXCESS 10.1 (-2.0-2.0); ABG HCO3 41.4 MEQ/L (22.0-26.0); ABG O2 SATURATION 98.4 % (95.0-99.0); ABG PARTIAL PRESSURE O2 134.7 mmHg (75.0-100.0); ABG STANDARD HCO3 33.9 MEQ/L (22.0-26.0); ABG TOTAL CO2 44.6 MEQ/L (23.0-31.0)
[2019-10-27] MEDS ORDERED: ACETAMINOPHEN 650 MG SUPP PR ONE (10:00)
[2019-10-27 10:01] LABS: ABG pH (ARTERIAL) 7.222 UNITS (7.350-7.450)
[2019-10-27 10:16] LABS: BASO # 0.1 10^3/uL (0.0-0.2); BASO % 0.5 % (0.0-1.0); EOS # 0.2 10^3/uL (0.0-0.5); EOS % 1.8 % (0.0-3.0); HEMATOCRIT 37.6 % (42.0-52.0); HEMOGLOBIN 11.5 g/dl (13.5-17.5); LYMPH # 1.1 10^3/uL (1.5-5.0); LYMPH % 10.2 % (24.0-44.0); MEAN CORPUSCULAR HEMOGLOBIN 30.4 pg (27.0-33.0); MEAN CORPUSCULAR HGB CONC 30.6 g/dl (32.0-36.5); MEAN CORPUSCULAR VOLUME 99.5 fl (80.0-96.0); MONO # 0.8 10^3/uL (0.0-0.8); MONO % 7.5 % (0.0-5.0); NEUTROPHILS # 8.3 10^3/uL (1.5-8.5); NEUTROPHILS % 78.6 % (36.0-66.0); PLATELET COUNT, AUTOMATED 256 10^3/uL (150-450); RED BLOOD COUNT 3.78 10^6/uL (4.30-6.10); WHITE BLOOD COUNT 10.5 10^3/uL (4.0-10.0)
--- NOTE | 2019-10-27 10:17 | REP ---
PORTABLE CHEST X-RAY: Sitting AP view. HISTORY: Dyspnea and cough. COMPARISON STUDY: 03/06/2019. FINDINGS: Oxygen delivery tubing and EKG monitoring electrodes are seen. Cardiac enlargement is observed. There is blunting of the left lateral pleural angle and some elevation of the right hemidiaphragm again noted. There is questionable blunting of the right lateral pleural angle. Pulmonary vasculature is cephalized. Today's views exposed at a lesser level of inspiration than the prior study. IMPRESSION: Cardiomegaly. Small left effusion. Question small right effusion. Low level of inspiration. Cephalization of the pulmonary vasculature. Electronically Signed by Fuad Adorno MD 10/27/2019 12:54 P
[2019-10-27 10:47] LABS: INFLUENZA A AMPLIFICATION NEGATIVE (NEGATIVE); INFLUENZA B AMPLIFICATION NEGATIVE (NEGATIVE)
[2019-10-27] MEDS ORDERED: HYDR-3363 PO (10:50)
[2019-10-27] MEDS ORDERED: ATOR1TAB19 PO (10:50)
[2019-10-27] MEDS ORDERED: OLAN5TAB PO (10:58)
[2019-10-27] MEDS ORDERED: FUROSEMIDE 40 MG/4 ML VIAL (J1940) IV ONE ×2 (11:00)
[2019-10-27 11:11] LABS: ALBUMIN 3.5 GM/DL (3.2-5.2); ALT/SGPT 27 U/L (12-78); BILIRUBIN,DIRECT < 0.1 MG/DL (0.0-0.2); BILIRUBIN,TOTAL 0.3 MG/DL (0.2-1.0); BLOOD UREA NITROGEN 22 MG/DL (7-18); CALCIUM LEVEL 9.9 MG/DL (8.8-10.2); CARBON DIOXIDE LEVEL 38 MEQ/L (21-32); CHLORIDE LEVEL 107 MEQ/L (98-107); CK-MB VALUE MASS 1.3 NG/ML (<3.6); CPK CREATINE PHOSPHOKINASE 253 U/L (39-308); CREATININE FOR GFR 1.95 MG/DL (0.70-1.30); GLOMERULAR FILTRATION RATE 37.2 (>49); GLUCOSE, FASTING 166 MG/DL (70-100); MB/CK RELATIVE INDEX 0.51 (< OR =4); NT-PRO BNP 654 PG/ML (<125); POTASSIUM SERUM 5.4 MEQ/L (3.5-5.1); SODIUM LEVEL 146 MEQ/L (136-145); TOTAL PROTEIN 6.9 GM/DL (6.4-8.2); TROPONIN I 0.02 NG/ML (< 0.10)
[2019-10-27] MEDS ORDERED: VANCOMYCIN HCL 1,000 MG, VIAL MATE ADAPTER 1 EACH in D5W 250 ML IV ONE ×2 (12:00→14:00)
[2019-10-27] MEDS ORDERED: CALCIUM GLUCONATE 1,000 MG in D5W MINI-BAG PLUS 100 ML IV ONE (12:00)
--- NOTE | 2019-10-27 12:12 | REP ---
CT of the chest without IV contrast: Comparison is the chest CT of 10/10/2018. There are small bilateral lower lobe infiltrates. There are small bilateral pleural effusions. There are multiple small nodular densities in the right middle lobe. These are all changes from the prior study. There is no mediastinal or axillary lymph node enlargement. The study is insensitive for hilar lymph node enlargement in the absence of known IV contrast. The unenhanced thoracic aorta is unremarkable. Cardiac size is enlarged. There is no pericardial effusion. Upper abdomen: The adrenals are unremarkable. The visualized areas of the hepatic parenchyma, gallbladder, pancreas and spleen are unremarkable. Impression: Small bilateral lower lobe infiltrates. Small bilateral pleural effusions. Multiple small nodular densities in the right middle lobe. All of these findings are changes from the comparison CT. Electronically Signed by Mikal Pina MD 10/27/2019 12:03 P
[2019-10-27 12:20] LABS: C REACTIVE PROTEIN QUANTITATIV 2.42 MG/DL (0.00-0.30)
--- NOTE | 2019-10-27 12:32 | HPE ---
DATE OF ADMISSION: 10/27/2019 CHIEF COMPLAINT: Fever, shortness of breath. HISTORY OF PRESENT ILLNESS: This is a 64-year-old male with a history of chronic kidney disease stage III, deep vein thrombosis (DVT) on chronic anticoagulation, hypertension, intellectual disability, schizoaffective disorder, anxiety, behavioral issues, who was in his usual state of health until a few days ago when he developed sinus congestion with exposure to staff members with the flu. The patient was not feeling well and was seen at the [facility], diagnosed with a sinus infection, would not permit anyone to examine him fully, had a temperature of 102, was given antibiotic, which he continued at home. The patient was in day hab yesterday morning. [facility] ([facility]) staff were called to take him home as he was not feeling well. When he got home, he had a fever and vomited, slept all day long. After awakening for dinner, he was able to sit up and eat his meals, took his medications. This morning, he had a temperature of 102.1 with labored breathing. The patient has not had any diarrhea, headaches or neck stiffness at home. Shortness of breath was much more apparent and he was seen in the emergency room this morning. The patient had a maximum temperature (t-max) of 101.9, white count was 10.5 with 78% neutrophils. Arterial blood gas was 7.22, CO2 of 103, O2 of 134. Chest x-ray showed vascular congestion, cardiomegaly, left pleural effusion and small right effusion, low level of inspiration. The patient was placed on bilevel positive airway pressure (BIPAP) and pulmonary was consulted. Influenza A and B were negative. [place] level is low at 0.4, creatinine at baseline at 1.95, troponin 0.02, and BNP was 654. Lactic acid was normal at 1.4. Due to vascular congestion seen on chest x-ray, the patient was given one dose of IV Lasix 40 mg, two sets of blood cultures were sent, urinalysis is still pending, Sánchez still needs to be placed. REVIEW OF SYSTEMS: Could not be completed, as the patient is obtunded. PAST MEDICAL HISTORY: 1. Schizoaffective disorder. 2. Behavioral issues. 3. Intellectual disability. 4. Chronic kidney disease III, baseline creatinine of 2.0. 5. Iron deficiency anemia. 6. Hypertension. 7. History of seizure. 8. Reflux disease. 9. History of deep vein thrombosis (DVT) on chronic anticoagulation. 10. [place] toxicity. 11. Reflux. 12. Chronic right lower extremity infection. PAST SURGICAL HISTORY: 1. Right leg surgery. SOCIAL HISTORY: Resident at [facility]. FULL CODE. No alcohol use. ALLERGIES: Nonsteroidal antiinflammatory drugs (NSAIDs). HOME MEDICATIONS: - Eliquis 2.5 mg twice a day - atorvastatin 10 mg daily - azelastine one spray twice a day - benztropine 1 mg twice a day - calcitriol 0.25 mcg five times weekly - clonazepam 1 mg three times a day - Coreg 6.25 mg twice a day - ferrous gluconate 324 mg daily - finasteride 4 mg at night - Flonase two sprays in the nares at night - hydroxyzine 25 mg three times a day - lithium 150 mg twice a day - multivitamin one tablet daily - Nystatin topically twice a day - olanzapine 10 mg at night and 5 mg three times a day - Prilosec 40 mg daily FAMILY HISTORY: Could not be obtained as the patient is obtunded. PHYSICAL EXAMINATION: VITAL SIGNS: Temperature 101.9, pulse 120, respiratory rate 38, blood pressure 152/84, 95% on BiPAP 14/8. GENERAL: The patient is obtunded, unresponsive. Pupils are reactive. Unable to assess for jugular venous distention (JVD), as the patient is on BiPAP with a thick neck. LUNGS: Diminished with wheezing, rales and crackles at the bases. HEART: S1, S2. Sinus tachycardia. ABDOMEN: Obese, soft, nontender, nondistended. EXTREMITIES: The patient has erythema and excoriations in the right lower extremity, which is new according to staff members. Scarring is noted in the left lower extremity. No pitting edema. EKG showed sinus tachycardia, ventricular rate of 123, inferior wave changes with possible inferior myocardial infarction. LABORATORY DATA: White count 10, hemoglobin 11, hematocrit 37, platelet count 256, 28% neutrophils, lymphocytes 10. Sodium 146, potassium 5.4, chloride 107, bicarbonate 38, BUN 22, creatinine 1.95, glucose 166. Lactic acid 1.4, calcium 9.9, total bilirubin 0.3, direct bilirubin less than 0.1, AST 17, ALT 27, alkaline phosphatase 150, total CK 253, MB fraction 1.3, relative index 0.51, troponin 0.02, BNP 654, albumin 3.5. IMAGING STUDIES: Chest x-ray showed cardiomegaly, small left effusion, low level of inspiration, cephalization of pulmonary vasculature, small right effusion. ASSESSMENT AND PLAN: This is a 64-year-old male with a history of schizoaffective disorder, intellectual disability, chronic kidney disease stage III, anxiety, and behavioral issues, iron deficiency anemia, hypertension, history of seizure disorder, who was brought to the emergency room with a several day complaint of sinus infection, treated with antibiotic and now with a fever of 101.9 and fever at home of 102. The patient is currently obtunded with acute hypercapnic respiratory failure with vascular congestion on chest x-ray. ACUTE ISSUES: 1. Sepsis, most likely from a sinus infection. The patient has a fever of 101.9. Influenza A and B are negative. Respiratory panel has been obtained. Sputum culture if the patient is much more awake can be obtained. Repeat CT of the chest to determine if the patient has any infiltrate on the chest x-ray versus edema. The patient does have some excoriations on the right lower extremity. We have added intravenous vancomycin and pharmacy consulted for renal dosing. 2. Acute hypercapnic respiratory failure. The patient has been placed on BiPAP. Pulmonology has been consulted for management of the BiPAP. Nothing by mouth status due to obtundation and risk for aspiration. 4. Chronic kidney disease stage III with hyperkalemia and hypernatremia. Nephrology has been consulted for help in management of fluid status. 5. History of deep vein thrombosis (DVT). On chronic Eliquis. The patient will be evaluated for any intracranial hemorrhage with a stat CT of the head. If negative, may start on heparin subcutaneously. 6. Right lower extremity possible cellulitis with scarring and some excoriations. The patient is on broad spectrum antibiotics for now due to fevers. 7. Hyperkalemia. Calcium gluconate and rectal Kayexalate. Recheck metabolic panel serially. 8. Diet. Nothing by mouth. 9. Deep vein thrombosis (DVT) prophylaxis. If negative CT of the head heparin subcutaneously. CODE STATUS: FULL CODE.
--- NOTE | 2019-10-27 12:36 | CR ---
DATE OF CONSULTATION: 10/27/2019 I was asked by Dr. Santizo to evaluate Mr. Gerard for acute and chronic hypercapnic respiratory failure. HISTORY OF PRESENT ILLNESS: Mr. Gerard is a 64-year-old male. He is a resident of [facility] ([facility]) who reportedly became ill last Saturday with nasal congestion. He was seen by Dr. Herrera's office. He would not allow an examination, and because his nasal congestion, they thought perhaps he had a sinus infection and he was placed on amoxicillin. He also has a right elbow abscess for which he has been on doxycycline. He did reasonably well over the weekend and went to work yesterday. At work, he had one episode emesis and was sent home. This morning his breathing was described as labored and he had a temperature of 102 and a saturation of reportedly in the mid 60s. 911 was summoned and he was brought to the emergency department. He was hypoxic when seen by the emergency family practice medical doctor (hand wrapper operator) when he presented to the emergency room he was saturating 93% on non-rebreather with 15 meters flow. They report a room air saturation of 42% on arrival as well. An arterial blood gas was obtained which showed a pH of 7.22 and a pCO2 103, so was started on noninvasive mechanical ventilation. He had influenza A and B swab, which were negative. A viral panel has been ordered but not yet done. The [facility] staff reportedly had influenza in early September. Additional information is that he has a mildly erythematous and warm right garvin region with scratches on it. Apparently, this is habitual for him and he is followed for this. He was doing well until 2 days ago when he again scratched that region. ALLERGIES: NSAIDs. MEDICATIONS ON ADMISSION: - Eliquis 2.5 mg by mouth daily - atorvastatin 10 mg by mouth daily - azelastine nasal spray 1 spray twice a day - benztropine 1 mg by mouth twice a day - calcitriol 0.25 mcg by mouth five times a week - carvedilol 6.25 mg by mouth twice a day - clonazepam 1 mg by mouth three times a day - ferrous gluconate to 324 mg by mouth daily - finasteride 5 mg by mouth nightly - Flonase nasal spray two sprays each nares nightly - hydroxyzine 25 mg by mouth three times a day - lithium carbonate 150 mg by mouth twice a day - multivitamin one by mouth daily - nystatin powder topically between toes twice a day - Zyprexa 5 mg by mouth three times a day - olanzapine 10 mg by mouth nightly - omeprazole 40 mg by mouth daily PAST MEDICAL HISTORY: 1. Schizoaffective disorder. 2. Mental retardation. 3. Hypertension. 4. Chronic anemia. 5. Chronic kidney disease stage III. 6. History of deep venous thrombosis (DVT), on Eliquis. 7. Gastroesophageal reflux disease 8. Status post surgery to his right lower extremity. 9. Diabetes mellitus, type 2, diet controlled. SOCIAL HISTORY: Mr. Gerard resides at [facility]. He does not drink alcohol. No tobacco usage. No illicit drug usage. He is a [employer]. FAMILY HISTORY: Unattainable secondary to decreased mental status and mental retardation. REVIEW OF SYSTEMS: Unattainable secondary to decreased mental status and mental retardation. What is known from the [facility] staff is contained in the history of present illness (HPI). PHYSICAL EXAMINATION: GENERAL: Mr. Gerard is lying in bed with a full face mask in place and no acute distress. He will occasionally mumble and at one point, raised his fist to strike. VITAL SIGNS: Temperature of 101.9, pulse 115, blood pressure 128/64 with a MAP 85, sPO2 96% on noninvasive mechanical ventilation with an IPAP of 20 and EPAP 10. I am not certain of the oxygen bleed in, with an FiO2 of 0.5. HEENT: Anicteric, pupils 2-3 mm and reactive. Oropharynx and nares not examined secondary to full face mask. NECK: Supple, without jugular venous distention (JVD), thyromegaly or masses, trachea is midline. LYMPH: Without cervical or supraclavicular lymphadenopathy. CHEST: Normal shape. LUNGS: Symmetric excursion, fair air entry, no wheeze, rhonchi or crackle on tidal excursion. Normal I:E. No accessory muscle usage or retractions. CARDIOVASCULAR: Tachycardiac, regular rhythm, normal S1, S2, no murmur, rub or gallop appreciated. ABDOMEN: Positive bowel sounds, obese, nondistended, no hepatosplenomegaly or masses expected appreciated. EXTREMITIES: Warm and well-perfused. He has an erythematous and mildly warm region on the right garvin, which has some excoriated regions. No clubbing, cyanosis, edema. Palpable pedal pulses bilaterally. NEURO: Easy to arouse and mumbles (I do not know his baseline status). LABORATORY DATA: CBC showed a hemoglobin 11.5, hematocrit 37.6, platelet count 256,000, white blood cell count 10,500 with a differential 77% neutrophils, 10%, lymphocytes 8% monocytes. Chemistries show sodium 146, potassium 5.4, chloride 107, bicarbonate 38, anion gap 1, BUN 22, creatinine 1.95, glucose 166, lactic acid 1.4. Calcium 9.9, total bilirubin 0.3, AST 17, ALT 27, alkaline phosphatase 150, CK 253, CK-MB 1.3, troponin-I 0.02, BMP 654, total protein 6.9, albumin 3.5. [place] level 0.4 Influenza A and influenza B swab negative. Arterial blood gas was 7.22/103/135 with a measured saturation of 98.4 and a base excess of 10.1. I reviewed his chest x-ray from earlier today. That x-ray is difficult to interpret given poor inspiration. There is a blunting of the left costophrenic angle and possibly some air bronchograms retrocardiac (though again shallow breath). He has a mild elevation right hemidiaphragm which is old. There is increased pulmonary vascular markings but again shallow inspiration. No consolidated region. IMPRESSION: 1. Acute on chronic respiratory failure: I suspect that the acute portion is secondary to an acute respiratory infection be it viral or bacterial. I suspect a chronic portion may be secondary to untreated sleep apnea (he does not wear a device at [facility]). There may be other reasons for the chronic portion. 2. Abnormal chest x-ray: It is difficult to interpret his chest x-ray because of poor inspiration and would not over interpret. 3. Right garvin cellulitis. 4. Chronic kidney disease, stage III. 5. Hypertension at baseline. 6. History of right femoral DVT greater than 10 years ago, on Eliquis. 7. Diabetes mellitus, type 2, diet controlled. 8. Mental retardation. 9. Schizoaffective disorder. 1o. Gastroesophageal reflux disease (GERD). RECOMMENDATIONS: 1. Continue on noninvasive mechanical ventilation. On his current settings (07/06), he is receiving at tidal volume in the low to mid 300s. 2. Will check a blood gas after his been on this device for close to 2 hours. 3. Agree with sending a respiratory panel. I am most suspicious of a viral process given his constellation of symptoms. 4. Agree with antibiotics pending further information. Regardless, he needs some antibiotics for his elbow and garvin. Given that he is in a health care facility, agree with broad-spectrum including vancomycin and Zosyn. Hopefully, this to be weaned later. 5. Would send a procalcitonin as again a lot of the history supports a viral process. Critical care time: 40 minutes. THAO
--- NOTE | 2019-10-27 12:37 | REP ---
HEAD CT WITHOUT CONTRAST: HISTORY: Unresponsive. Patient on Eliquis for DVT. Rule out intracranial hemorrhage. COMPARISON STUDY: Comparison head CT study February 18, 2019. CT FINDINGS: Bone window settings demonstrate an intact bony calvarium. There is no evidence of skull fracture or incidental bony calvarial lesion. The visualized paranasal sinuses appear clear. There is minimal vascular calcification in the distal internal carotids. No intraorbital abnormality is seen. On soft tissue window setting images; the lateral, third, and fourth ventricles are normal in size and position. Tai-white differentiation pattern is normal above and below the tentorium. There are is no evidence of intracranial hemorrhage. No mass, edema, infarction, or midline shift is seen. No extra-axial fluid collection is appreciated. IMPRESSION: Minimal vascular calcification. Otherwise negative noncontrast head CT. Electronically Signed by Fuad Adorno MD 10/27/2019 12:57 P
[2019-10-27 12:56] LABS: ERYTHROCYTE SEDIMENTATION RATE 73 mm/hr (0-20)
--- NOTE | 2019-10-27 13:07 | REP ---
Duplex extremity venous ultrasound: Bilateral lower extremities. History: Right leg erythema. History of DVT. Rule out DVT. Findings: The deep veins are anechoic and fully compressible from the groin to the popliteal fossa in the right and left lower extremity. Color flow imaging is homogeneous. Spectral Doppler interrogation demonstrates intact respiratory variation in flow and normal manual augmentation of flow. There is no evidence of deep vein thrombosis. Impression: Negative bilateral lower extremity duplex venous ultrasound. No evidence of deep vein thrombosis. Electronically Signed by Fuad Adorno MD 10/27/2019 12:59 P
[2019-10-27 13:08] LABS: ABG BASE EXCESS 9.7 (-2.0-2.0); ABG HCO3 40.1 MEQ/L (22.0-26.0); ABG O2 SATURATION 97.6 % (95.0-99.0); ABG PARTIAL PRESSURE O2 107.7 mmHg (75.0-100.0); ABG STANDARD HCO3 33.4 MEQ/L (22.0-26.0)
[2019-10-27 13:11] LABS: ABG pH (ARTERIAL) 7.247 UNITS (7.350-7.450)
[2019-10-27 13:12] LABS: ABG PARTIAL PRESSURE CO2 94.1 mmHg (35.0-45.0)
[2019-10-27] MEDS: PIPERACILLIN/TAZOBACTAM SOD 3.375 GM in D5W MINI-BAG PLUS 50 ML IV SCH ×2 (15:35→20:29)
[2019-10-27 16:22] LABS: ABG BASE EXCESS 7.1 (-2.0-2.0); ABG HCO3 37.6 MEQ/L (22.0-26.0); ABG O2 SATURATION 96.7 % (95.0-99.0); ABG PARTIAL PRESSURE O2 101.4 mmHg (75.0-100.0); ABG STANDARD HCO3 30.9 MEQ/L (22.0-26.0); ABG TOTAL CO2 40.5 MEQ/L (23.0-31.0)
[2019-10-27 16:25] LABS: ABG PARTIAL PRESSURE CO2 94.7 mmHg (35.0-45.0); ABG pH (ARTERIAL) 7.217 UNITS (7.350-7.450)
[2019-10-27 18:09] LABS: ABG BASE EXCESS 11.1 (-2.0-2.0); ABG HCO3 37.9 MEQ/L (22.0-26.0); ABG O2 SATURATION 78.9 % (95.0-99.0); ABG STANDARD HCO3 34.4 MEQ/L (22.0-26.0); ABG TOTAL CO2 39.8 MEQ/L (23.0-31.0); ABG pH (ARTERIAL) 7.404 UNITS (7.350-7.450)
[2019-10-27 18:12] LABS: ABG PARTIAL PRESSURE O2 40.4 mmHg (75.0-100.0)
[2019-10-27 20:40] LABS: ABG BASE EXCESS 9.5 (-2.0-2.0); ABG HCO3 37.7 MEQ/L (22.0-26.0); ABG O2 SATURATION 96.3 % (95.0-99.0); ABG PARTIAL PRESSURE O2 86.9 mmHg (75.0-100.0); ABG STANDARD HCO3 33.2 MEQ/L (22.0-26.0); ABG pH (ARTERIAL) 7.329 UNITS (7.350-7.450)
[2019-10-27 20:41] LABS: ABG PARTIAL PRESSURE CO2 73.4 mmHg (35.0-45.0)
[2019-10-27 21:03] LABS: CALCIUM LEVEL 10.2 MG/DL (8.8-10.2); CREATININE FOR GFR 2.54 MG/DL (0.70-1.30); GLOMERULAR FILTRATION RATE 27.4 (>49); POTASSIUM SERUM 5.2 MEQ/L (3.5-5.1)
[2019-10-27] MEDS ORDERED: VANCOMYCIN HCL 750 MG, VIAL MATE ADAPTER 1 EACH in D5W 250 ML IV SCH (22:00)
[2019-10-28] VITALS (7 sets, daily range): BP systolic 107–137; BP diastolic 66–80; O2SAT 98
[2019-10-28] MEDS: PIPERACILLIN/TAZOBACTAM SOD 3.375 GM in D5W MINI-BAG PLUS 50 ML IV SCH ×2 (03:23→08:18)
[2019-10-28 05:05] LABS: HEMOGLOBIN 10.7 g/dl (13.5-17.5); MEAN CORPUSCULAR HEMOGLOBIN 29.6 pg (27.0-33.0); MEAN CORPUSCULAR HGB CONC 29.7 g/dl (32.0-36.5); MEAN CORPUSCULAR VOLUME 99.4 fl (80.0-96.0); PLATELET COUNT, AUTOMATED 255 10^3/uL (150-450); RED BLOOD COUNT 3.62 10^6/uL (4.30-6.10); WHITE BLOOD COUNT 9.1 10^3/uL (4.0-10.0)
[2019-10-28 05:46] LABS: CALCIUM LEVEL 10.1 MG/DL (8.8-10.2); CREATININE FOR GFR 2.43 MG/DL (0.70-1.30); GLOMERULAR FILTRATION RATE 28.8 (>49); POTASSIUM SERUM 4.6 MEQ/L (3.5-5.1)
--- NOTE | 2019-10-28 08:33 | IPNPDOC ---
Subjective Date Seen The patient was seen on 10/28/19. Subjective Chief Complaint/HPI respiratory failure with hypoxia Events since last encounter Patient weaned off of Bipap this am. ABG obtained and is stable. Patient awake and requesting water and food. Constitutional: Denies: Fever, Night Sweats ENT: Denies: Head Aches, Ear Pain, Dysphagia Skin: Denies: Rash, Lesions, Breakdown Pulmonary: Reports: Dyspnea, Cough Cardiovascular: Denies: Chest Pain, Palpitations, Orthopnea, Paroxysmal Noc. Dyspnea, Edema, Lt Headedness Gastrointestinal: Denies: Nausea, Vomiting, Abdominal Pain, Diarrhea, Constipation Genitourinary: Reports: Retention; Denies: Dysuria, Frequency, Incontinence Psych: Reports: Mood Normal; Denies: Depression, Memory Issues Objective Physical Examination General Exam: Positive: Alert, No Acute Distress Eye Exam: Positive: PERRLA, Conjunctiva & lids normal, EOMI; Negative: Sclera icteric Neck Exam: Positive: Supple; Negative: JVD, thyromegaly Chest Exam: Positive: Diminished (bibasilar) Telemetry: Positive: No significant arrhythmia Abdomen Exam: Positive: Normal bowel sounds, Soft; Negative: Tenderness, Hepatospenomegaly Psych Exam: Positive: Mental status NL, Mood NL, Oriented x 3 Assessment /Plan Problems (1) Coronavirus infection Problem Text: CORONAVIRUS NL63 on respiratory panel. Procalcitonin level pending. Most likely will not need abx tx. (2) Acute on chronic respiratory failure with hypoxia and hypercapnia Status: Acute Problem Text: weaned from Bipap to NC. (3) Hypernatremia Status: Acute Problem Text: monitor. taking po well. recheck in am. (4) Diabetes Status: Chronic Problem Text: Hgba1c 6.5. will monitor. (5) Schizoaffective disorder Status: Chronic Problem Text: routine home medications ordered: lithium resumed. will order baseline level (6) Seizure disorder Status: Chronic Problem Text: home medications ordered: lamictal (7) DVT (deep venous thrombosis) Status: Chronic Problem Text: resumed Eliquis (8) Mental retardation Status: Chronic Problem Text: stable behavior (9) HTN (hypertension) Status: Chronic Problem Text: resume home dose coreg 6.25 mg po bid (10) HLD (hyperlipidemia) Status: Chronic Problem Text: resume home dose Atorvastatin 10 mg po daily Plan/VTE VTE Prophylaxis Ordered?: Yes VS, I&O, 24H, Fishbone Vital Signs/I&O Vital Signs Date Time Temp Pulse Resp B/P (MAP) Pulse Ox O2 Delivery O2 Flow Rate FiO2 10/28/19 07:58 30 10/28/19 07:56 97.1 86 19 137/73 (94) 99 NIPPV (BIPAP/CPAP) 10/27/19 09:45 15.0 I&O- Last 24 Hours up to 6 AM 10/28/19 05:59 Intake Total 1035 ml Output Total 1830 ml Balance -795 ml Laboratory Data 24H LABS Laboratory Tests 2 10/27/19 09:36: Blood Gas Bicarbonate Standard 33.9H, Arterial Blood pH 7.222*L, Arterial Blood Partial Pressure CO2 103.0*H, Arterial Blood Partial Pressure O2 134.7H, Arterial Blood Total CO2 44.6H, Arterial Blood HCO3 41.4H, Arterial Blood Base Excess 10.1H, Arterial Blood Oxygen Saturation 98.4 10/27/19 09:52: Immature Granulocyte % (Auto) 1.4, Neutrophils (%) (Auto) 78.6H, Lymphocytes (%) (Auto) 10.2L, Monocytes (%) (Auto) 7.5H, Eosinophils (%) (Auto) 1.8, Basophils (%) (Auto) 0.5, Neutrophils # (Auto) 8.3, Lymphocytes # (Auto) 1.1L, Monocytes # (Auto) 0.8, Eosinophils # (Auto) 0.2, Basophils # (Auto) 0.1, Nucleated Red Blood Cells % (auto) 0.0, Erythrocyte Sedimentation Rate 73H, Anion Gap 1L, Glomerular Filtration Rate 37.2L, Lactic Acid Level 1.4, Calcium Level 9.9, Total Bilirubin 0.3, Direct Bilirubin < 0.1, Aspartate Amino Transf (AST/SGOT) 17, Alanine Aminotransferase (ALT/SGPT) 27, Alkaline Phosphatase 150H, Total Creatine Kinase 253, Creatine Kinase MB 1.3, Creatine Kinase MB Relative Index 0.51, Troponin I 0.02, C-Reactive Protein, Quantitative 2.42H, WH-Ham-C-Type Natriuretic Peptide 654H, Total Protein 6.9, Albumin 3.5, Albumin/Globulin Ratio 1.03, [place] Level 0.40L, Influenza Type A (RT-PCR) NEGATIVE, Influenza Type B (RT-PCR) NEGATIVE 10/27/19 12:58: Blood Gas Bicarbonate Standard 33.4H, Arterial Blood pH 7.247*L, Arterial Blood Partial Pressure CO2 94.1*H, Arterial Blood Partial Pressure O2 107.7H, Arterial Blood Total CO2 43.0H, Arterial Blood HCO3 40.1H, Arterial Blood Base Excess 9.7H, Arterial Blood Oxygen Saturation 97.6, Urine Color YELLOW, Urine Appearance CLEAR, Urine pH 6.0, Urine Specific [place] 1.008, Urine Protein 2+H, Urine Glucose (UA) NEGATIVE, Urine Ketones NEGATIVE, Urine Blood 1+H, Urine Nitrite NEGATIVE, Urine Bilirubin NEGATIVE, Urine Urobilinogen 0.2, Urine Leukocyte Esterase NEGATIVE, Urine WBC (Auto) 1, Urine RBC (Auto) 0, Urine Hyaline Casts (Auto) 0, Urine Bacteria (Auto) NEGATIVE, Urine Squamous Epithelial Cells 0, Urine Sperm (Auto) , Methicillin-Resist S.aureus DNA PCR DETECTEDH 10/27/19 15:53: Blood Gas Bicarbonate Standard 30.9H, Arterial Blood pH 7.217*L, Arterial Blood Partial Pressure CO2 94.7*H, Arterial Blood Partial Pressure O2 101.4H, Arterial Blood Total CO2 40.5H, Arterial Blood HCO3 37.6H, Arterial Blood Base Excess 7.1H, Arterial Blood Oxygen Saturation 96.7 10/27/19 17:57: Blood Gas Bicarbonate Standard 34.4H, Arterial Blood pH 7.404, Arterial Blood Partial Pressure CO2 62.0*H, Arterial Blood Partial Pressure O2 40.4*L, Arterial Blood Total CO2 39.8H, Arterial Blood HCO3 37.9H, Arterial Blood Base Excess 11.1H, Arterial Blood Oxygen Saturation 78.9L 10/27/19 20:21: Anion Gap 5L, Glomerular Filtration Rate 27.4L, Calcium Level 10.2 10/27/19 20:32: Blood Gas Bicarbonate Standard 33.2H, Arterial Blood pH 7.329L, Arterial Blood Partial Pressure CO2 73.4*H, Arterial Blood Partial Pressure O2 86.9, Arterial Blood Total CO2 40.0H, Arterial Blood HCO3 37.7H, Arterial Blood Base Excess 9.5H, Arterial Blood Oxygen Saturation 96.3 10/28/19 04:46: Anion Gap 3L, Glomerular Filtration Rate 28.8L, Calcium Level 10.1, Nucleated Red Blood Cells % (auto) 0.0 CBC/BMP Laboratory Tests 10/27/19 09:52 10/27/19 20:21 10/28/19 04:46 Microbiology Microbiology 10/27/19 Blood Culture, Received Pending 10/27/19 Respiratory Virus Panel (PCR) ([facility]) - Final, Complete Coronavirus Nl63 10/27/19 Blood Culture, Received Pending Emily Mcintosh [facility] Oct 28, 2019 08:33
[2019-10-28] MEDS: APIXABAN 2.5 MG TAB (ELIQUIS) PO SCH ×2 (10:27→20:07)
[2019-10-28] MEDS: clonazePAM 1 MG TAB PO SCH ×3 (10:27→20:07)
[2019-10-28] MEDS: LITHIUM CARBONATE 150 MG CAP PO SCH ×2 (10:27→20:13)
[2019-10-28] MEDS: OMEPRAZOLE 20 MG CAP PO SCH (10:27)
[2019-10-28] MEDS: ATORVASTATIN 10 MG TAB PO SCH (10:27)
[2019-10-28] MEDS: CARVedilol 6.25 MG TAB PO SCH ×2 (10:27→20:10)
[2019-10-28] MEDS: CALCITRIOL 0.25 MCG CAP (S0169) PO SCH (10:28)
[2019-10-28] MEDS: MULTIVITAMINS/MINERALS THERAP 1 TAB PO SCH (10:28)
[2019-10-28] MEDS: hydrOXYzine 25 MG TAB PO SCH ×3 (10:28→20:07)
[2019-10-28] MEDS: AZELASTINE 137MCG NASAL SPY 30 ML (ASTELIN) SCH ×2 (10:28→20:06)
[2019-10-28] MEDS: OLANZapine 5 MG TAB PO SCH ×4 (10:28→20:06)
[2019-10-28] MEDS: FERROUS GLUCONATE 324 MG TAB PO SCH (10:28)
[2019-10-28] MEDS: BENZTROPINE 1 MG TAB PO SCH ×2 (10:28→20:13)
[2019-10-28] MEDS: methylPREDNISolone INJ 125 MG/2 ML VIAL (J2930) IV SCH ×2 (10:29→16:10)
[2019-10-28] MEDS: NYSTATIN 100,000 UNITS/GM TOPICAL PWD 15 GM TOP SCH ×2 (10:29→20:06)
--- NOTE | 2019-10-28 10:29 | CR ---
DATE OF CONSULTATION: 10/27/2019 CONSULTATION FOR: Ara Dillard MD REASON FOR CONSULTATION: Acute renal failure and acute respiratory failure. HISTORY OF PRESENT ILLNESS: This is a 64-year-old gentleman with multiple chronic medical problems including a known history of stage III of chronic kidney disease with baseline serum creatinine of about 1.9 mg/dl, history of deep venous thrombosis (DVT) requiring chronic anticoagulation, hypertension, schizoaffective disorder, and left ear disability, and behavioral issues. He was seen by [facility] recently and diagnosed with a sinus infection; and as the patient was unable to cooperate for a complete examination, a presumptive diagnosis was made, and the patient was given antibiotic. He is now admitted to [facility] in intensive care unit (ICU) for respiratory failure, as he was brought to the emergency room with difficulty breathing today. He did test positive for coronavirus N163, which is not Covid-19. Nephrology consultation was requested, as the patient has significant acidosis and acute kidney injury superimposed on chronic kidney disease. I have seen the patient in intensive care unit this afternoon. The patient is unable to provide any information, and he is not usually even good historian at baseline. He is a [facility] ([facility]) resident, and currently a [facility] staff member is also present in the room. PAST SURGICAL HISTORY: Is significant for right leg surgery. PAST MEDICAL HISTORY: Is significant for stage III of chronic kidney disease, secondary hyperparathyroidism, hyperlipidemia, schizoaffective disorder, benign prostatic hypertrophy (BPH), anemia with iron deficiency, hypertension, gastroesophageal reflux disease. ALLERGIES: He has allergy to NSAIDs. MEDICATIONS: His home medications include: - Eliquis 2.5 mg twice a day for history of DVT - atorvastatin 10 mg daily - benztropine 1 mg twice a day - calcitriol 0.25 mcg five times a week - clonazepam 1 mg three times a day - Coreg 6.25 mg (dictation cut off) - ferrous gluconate 324 mg daily - finasteride 5 mg at bedtime - Flonase nasal spray at night - hydroxyzine 25 mg three times a day - lithium 150 mg twice a day - multivitamin one tablet daily - Prilosec 40 mg daily - olanzapine 10 mg at night and 5 mg three times a day FAMILY HISTORY: Is noncontributory. REVIEW OF SYSTEMS: The patient is not able to provide any information. He was brought to the emergency room with respiratory insufficiency and has been put on bilateral positive airway pressure (BiPAP). Prior to this, he did have respiratory symptoms for a few days and was treated with antibiotics for presumed respiratory infection. Apparently, other residents of [facility] have been treated for similar symptoms. PHYSICAL EXAMINATION: Temperature 102 degrees Fahrenheit, heart rate 120 per minute, and respiratory rate 38 per minute. Blood pressure is now about 89/54 mmHg while he is on BiPAP. The patient is obtunded, currently on BiPAP. Neck veins are difficult to be assessed. Heart sounds are tachycardiac. Lungs have bilateral rhonchi and mild wheezing. Abdomen: Soft and nontender. Bowel sounds are present. Extremities: Without any cyanosis or clubbing. Skin has no rash or ulcers. Neurologically, he is not able to cooperate for an examination. LABORATORY DATA: WBC count is 10.5, hemoglobin 11.5, and hematocrit 37.6. Platelets 256. Initial blood gas showed a pH of 7.22, pCO2 103, pO2 134.7, and bicarbonate 34. Another blood gas showed a pH of 7.21, pCO2 94.7, and pO2 101.4. Most recent blood gas showed a pH of 7.40, pCO2 62. and pO2 40.4. Saturation 79%. CT scan of chest showed infiltrates and some pulmonary nodules with minimal effusion. His chemistry showed a sodium 146, potassium 5.4, CO2 38, BUN 22, and creatinine 1.95. Glucose 166 and lactic acid 1.4. AST 17, ALT 27, alkaline phosphatase 150, troponin 0.02, pro-BNP 654, and albumin 3.5. Urinalysis showed 2+ protein and 1+ blood with only 1 WBC. His respiratory panel showed coronavirus N163. PROBLEMS: 1. Acute kidney injury superimposed on chronic kidney disease. His kidney function is still at about baseline. His volume status seems clinically reasonably well compensated. I do not feel that he is volume overloaded at present. We will monitor him closely. 2. Hyperkalemia. Mild hyperkalemia most likely related to respiratory acidosis and is likely to correct in repeat laboratories. At this point, no intervention is needed. Only will need to repeat his chemistry. 3. Respiratory acidosis and respiratory failure. The patient has tested positive for coronavirus N163 and not COVID-19. He is being treated with BiPAP and supportive care. His respiratory acidosis has already improved with adjustment in the BiPAP. His volume status is reasonably well compensated, and I do not feel that any urgent nephrology intervention, like continuous renal replacement therapy (CRRT) is indicated. 4. Anemia, at baseline. He does have anemia history and could be slightly volume depleted now. No urgent intervention is indicated at this point. Nephrology service will follow him along with you. I thank you for involving us in the care of Mr. Gerard.
--- NOTE | 2019-10-28 11:04 | PHACANCOPD ---
PHARMACY VANCOMYCIN DOSING Pt Demographics Demographics Patient Age:64 , Weight:90.000 , Gender: male Adjusted Body Weight Date: 10/28/19, Adjusted Body Weight: Kg Events Past 24 Hours Events Past 24 Hours: YES: Change in CrCl; NO: Dialysis, Diuretic Therapy, Fever, Elevation in WBC, Pending Diagnostics, Pending Procedures, Other Vancomycin Vancomycin Target Ranges: 15-20 mcg/ml Vancomycin Load Y/N: Yes Load Dose Date Time Vancomycin Load Dose: 2GM Date: 10/27/19 Time: 1300 Vancomycin Dose Date: 10/28/19. Current Vancomycin Dose: Intermittent Dosing?: No Labs Labs Vital Signs Label Value Date Time Patient Temperature 97.2 degrees F 10/28/19 0400 Temperature Source Temporal 10/28/19 0400 Patient Temperature 97.1 degrees F 10/28/19 0756 Temperature Source Temporal 10/28/19 0756 Patient Temperature 97.0 degrees F 10/28/19 0000 Temperature Source Temporal 10/28/19 0000 Item Value Date Time White Blood Count 9.1 10^3/uL 10/28/19 0446 White Blood Count 10.5 10^3/uL H 10/27/19 0952 Erythrocyte Sedimentation Rate 73 mm/hr H 10/27/19 0952 Methicillin-Resist S.aureus DNA PCR DETECTED H 10/27/19 1258 Vancomycin Level Trough 23.3 UG/ML H 10/28/19 0900 Creatinine 2.43 MG/DL H 10/28/19 0446 Creatinine 2.54 MG/DL H 10/27/19 2021 Micro Microbiology 10/27/19 Blood Culture - Preliminary, Resulted No growth after 24 hours . All specim... 10/27/19 Respiratory Virus Panel (PCR) ([facility]) - Final, Complete Coronavirus Nl63 10/27/19 Blood Culture - Preliminary, Resulted No growth after 24 hours . All specim... Creatinine Clearance Date:10/28/19. Creatinine Clearance: . Assessment and Plan Maintaining Current Dose?: No Reason for dose change: Trough too high Pharmacist Note Pharmacist Note Date: 10/28/19. Pharmacist note: Trough today before 3rd dose resulted at 23.3mcg/ml. I have changed the dose to Vanco 1250mg IV Q24H@2100 based on previous consults. Pt positive for coronavirus, pending procalcitonin and will likely be able to d/c abx. Scr baseline is ~2.2. We will continue to monitor and adjust dose as needed. [facility] Oct 28, 2019 11:04
--- NOTE | 2019-10-28 13:19 | CCN ---
DATE: 10/28/2019 Mr. Gerard was admitted for acute and chronic hypercapnic respiratory failure. Last evening he had difficulties with a worsened arterial blood gas with a pH of 7.22. He was also less responsive. Manipulations were made to the noninvasive mechanical ventilator, including using it as a true ventilator with the set rate of 20 breaths per minute. After an hour on these settings, his gas completely normalized. At that point, the set rate was decreased 16 to allow him to overbreathe ventilator. He gradually became more alert and began spontaneously overbreathing the ventilator. This morning, he is wide awake and answering questions. He had a breakfast of clear liquids and tolerated it well, though he did drink his carbonated soda rather rapidly. He is not complaining of any discomfort. He feels a little bit nauseous after drinking so fast but otherwise feels okay. His last bowel movement was a couple of days ago, and he has difficulty with chronic constipation though does well if he is kept on Colace. He stated he was coughing, though the aide that was with him said that he has not been coughing this morning. When he was admitted he was febrile but has remained afebrile since admission. OBJECTIVE: PHYSICAL EXAMINATION: GENERAL: Mr. Gerard is sitting in bed in no acute distress. He can complete full sentences. No cough throughout the evaluation. VITAL SIGNS: Temperature 97.1 with a maximal temperature of 97.2, pulse 86, respiratory rate high teens, blood pressure 137/73 with a mean arterial pressure (MAP) of 94. SpO2 was on 100% 2 liters by nasal cannula. HEENT: Anicteric. Nares patent bilaterally. Oropharynx clear. He has a slight right facial droop with deviation of the tongue in that direction (chronic). NECK: Supple without jugular venous distention (JVD), without thyromegaly or masses. Trachea is midline. LYMPHATICS: Without cervical or supraclavicular lymphadenopathy. LUNGS: Symmetric excursion. Good air entry. No wheeze, rhonchi, or crackle on tidal excursion. Normal inspiratory to expiratory (I-to-E). No accessory muscle usage or retractions. CARDIOVASCULAR: Regular rate and rhythm with a normal S1, S2. No murmur, rub, or gallop appreciated. ABDOMEN: Mild protuberance, soft, positive bowel sounds. No hepatosplenomegaly or masses appreciated. EXTREMITIES: Warm and well perfused without clubbing, cyanosis, or edema. Palpable pedal pulses. Right garvin is less erythematous and no longer warmer than the other leg. LABORATORY DATA: CBC showed a hemoglobin of 10.7, hematocrit 36, platelet count 255,000, white blood cell count 9100. His chemistry showed a sodium 146, potassium 4.6, chloride 103, bicarbonate 40, anion gap 3, BUN 32, creatinine 2.4, glucose 167, calcium 10.1. Arterial blood gas yesterday afternoon was 7.22/95/101 with saturation of 97%. This was on non-invasive mechanical ventilation 18/10 with an FiO2 of 0.50, and a backup rate of 10. A repeat blood gas on NIMV / with an FiO2 of 0.21 and a rate of 20 was 7.4/62/40 with a measured saturation of 79%. A final blood gas on NIMV at 09/06 with a rate of 16 and an FiO2 of 0.3 was 7.33/73/87 with a measured saturation of 96%. Viral panel came back positive for coronavirus NL63. IMPRESSION: 1. Acute and chronic hypercapnic respiratory failure. I feel that acute portion was secondary to the coronavirus in the setting of what is likely obstructive sleep apnea along with medications. His acute decompensation appears to have resolved. The etiology of his chronic hypercapnia is not known, but I am suspicious for obstructive sleep apnea. 2. Coronavirus. 3. Abnormal chest CT scan with several nodules. Differential would include inflammatory, infectious, or other. 4. Right garvin cellulitis, improved. 5. Chronic kidney disease, stage III, renal following. 6. Diabetes mellitus, type 2, diet controlled. 7. Mental retardation. 8. Schizoaffective disorder. 9. Gastroesophageal reflux disease (GERD), on omeprazole. 10. Deep vein thrombosis (DVT) prophylaxis, fully anticoagulated with Eliquis. 11. Infectious disease. On Zosyn and vancomycin. 12. Nutrition. On clears. RECOMMENDATIONS: 1. Agree with plan to discontinue antibiotics if his procalcitonin is normal. 2. In regard to his abnormal chest CT scan, would recommend a repeat in about approximately 3 months. 3. Will discontinue Solu-Medrol. He has no history of an obstructive lung process. 4. More than likely he will not require noninvasive mechanical ventilation; however, I feel he likely would benefit, at least while is recovering form his acute illness, from bilevel therapy nocturnally and with naps. 5. I would continue his diet with clear liquids for the immediate future, given that he is a full code and he did have significant difficulty last evening, though I suspect that it will not be long before it can be advanced. CRITICAL CARE: Was 35 minutes, not including procedure time. THAO
--- NOTE | 2019-10-28 15:19 | REP ---
Renal ultrasound for a YADIRA on CKD: For comparison is 10/11/2018. The right kidney measures 9.5 x 4.7 x 4.4 cm. The left kidney measures 9.5 x 4.9 x 5.5 cm. The kidneys are in the low normal size range, as previously. There is increased echogenicity of the renal cortices bilaterally. This is compatible with medical renal disease was also present previously. There is no hydronephrosis on the right on the left. There are no renal calculi on the right on the left. There are no solid renal masses on the wall. There is a Bosniak type 1 cyst in the right renal lower pole medially measuring 2.9 x 1.6 x 1.6 cm. On the prior study there was an additional right renal cyst and there was also a left renal cyst. These cysts are not visible on the study today. The study today is technically difficult because the patient is unable to suspend respirations. Bladder: There is a Sánchez catheter. The bladder is collapsed and cannot be evaluated. Impression: The kidneys are in the low normal size range bilaterally. There is bilateral renal cortical echogenicity, compatible with medical renal disease. There is no hydronephrosis. There are no solid renal masses. There are no calculi. There is a single Bosniak type 1 right renal cyst. On the comparison study there was an additional right renal cyst and there was a left renal cyst. The cisterna visible on the study today. The study today is technically difficult, the patient is unable to suspend respiration. Electronically Signed by Mikal Pina MD 10/28/2019 03:11 P
[2019-10-28] MEDS: FLUTICASONE PROP 0.05% NASAL SPRAY 16 GM (FLONASE) NARES SCH (20:06)
[2019-10-28] MEDS: VANCOMYCIN HCL 750 MG, VIAL MATE ADAPTER 1 EACH in D5W 250 ML IV SCH (20:06)
[2019-10-28] MEDS: FINASTERIDE 5 MG TAB PO SCH (20:07)
--- NOTE | 2019-10-28 20:43 | ECGEPIP ---
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
[2019-10-28] MEDS: VANCOMYCIN HCL 500 MG in D5W MINI-BAG PLUS 100 ML IV SCH (21:30)
[2019-10-29] VITALS (7 sets, daily range): BP systolic 105–121; BP diastolic 58–70
[2019-10-29] MEDS: methylPREDNISolone INJ 125 MG/2 ML VIAL (J2930) IV SCH ×3 (01:05→16:28)
[2019-10-29 05:03] LABS: HEMATOCRIT 33.5 % (42.0-52.0); HEMOGLOBIN 10.2 g/dl (13.5-17.5); MEAN CORPUSCULAR HEMOGLOBIN 29.6 pg (27.0-33.0); MEAN CORPUSCULAR HGB CONC 30.4 g/dl (32.0-36.5); MEAN CORPUSCULAR VOLUME 97.1 fl (80.0-96.0); PLATELET COUNT, AUTOMATED 255 10^3/uL (150-450); RED BLOOD COUNT 3.45 10^6/uL (4.30-6.10); WHITE BLOOD COUNT 8.2 10^3/uL (4.0-10.0)
[2019-10-29 05:22] LABS: CALCIUM LEVEL 9.3 MG/DL (8.8-10.2); CREATININE FOR GFR 2.21 MG/DL (0.70-1.30); GLOMERULAR FILTRATION RATE 32.2 (>49)
[2019-10-29] MEDS: hydrOXYzine 25 MG TAB PO SCH ×3 (08:49→21:09)
[2019-10-29] MEDS: BENZTROPINE 1 MG TAB PO SCH ×2 (08:49→21:08)
[2019-10-29] MEDS: MULTIVITAMINS/MINERALS THERAP 1 TAB PO SCH (08:49)
[2019-10-29] MEDS: APIXABAN 2.5 MG TAB (ELIQUIS) PO SCH ×2 (08:49→21:08)
[2019-10-29] MEDS: OMEPRAZOLE 20 MG CAP PO SCH (08:49)
[2019-10-29] MEDS: ATORVASTATIN 10 MG TAB PO SCH (08:50)
[2019-10-29] MEDS: CARVedilol 6.25 MG TAB PO SCH ×2 (08:50→21:09)
[2019-10-29] MEDS: LITHIUM CARBONATE 150 MG CAP PO SCH ×2 (08:50→21:08)
[2019-10-29] MEDS: OLANZapine 5 MG TAB PO SCH ×4 (08:50→21:09)
[2019-10-29] MEDS: FERROUS GLUCONATE 324 MG TAB PO SCH (08:50)
[2019-10-29] MEDS: clonazePAM 1 MG TAB PO SCH ×3 (08:51→21:08)
[2019-10-29] MEDS: AZELASTINE 137MCG NASAL SPY 30 ML (ASTELIN) SCH ×2 (08:51→21:09)
[2019-10-29] MEDS: CALCITRIOL 0.25 MCG CAP (S0169) PO SCH (08:51)
[2019-10-29] MEDS: NYSTATIN 100,000 UNITS/GM TOPICAL PWD 15 GM TOP SCH ×2 (08:51→21:10)
--- NOTE | 2019-10-29 08:54 | IPNPDOC ---
Subjective Date Seen The patient was seen on 10/29/19. Subjective Chief Complaint/HPI Pt this morning states that he is feeling a lot better. He states that it feels easier to breath, he is less SOB. He has less cough. He slept well last night. Nursing reports that he did well off BIpap when awake yesterday. General: Denies: Fatigue Constitutional: Denies: Chills, Fever ENT: Denies: Head Aches Pulmonary: Denies: Dyspnea, Cough Cardiovascular: Denies: Chest Pain, Palpitations Gastrointestinal: Denies: Nausea, Vomiting, Abdominal Pain, Diarrhea Neurological: Denies: Weakness Psych: Reports: Mood Normal Objective Physical Examination General Exam: Positive: Alert, No Acute Distress Eye Exam: Negative: Sclera icteric ENT Exam: Positive: Mucous membr. moist/pink Neck Exam: Positive: Supple; Negative: JVD, thyromegaly Chest Exam: Positive: Diminished (bibasilar) Telemetry: Positive: No significant arrhythmia Abdomen Exam: Positive: Normal bowel sounds, Soft; Negative: Tenderness, Hepatospenomegaly Extremity Exam: Negative: Edema Neuro Exam: Positive: Normal Speech Psych Exam: Positive: Oriented x 3 Assessment /Plan Problems (1) Coronavirus infection Problem Text: CORONAVIRUS NL63 on respiratory panel. Procalcitonin level 0.30. Most likely will not need abx tx. (2) Acute on chronic respiratory failure with hypoxia and hypercapnia Status: Acute Problem Text: Pulm following, Bipap while sleeping, otherwise has been weaned to NC. (3) Hypernatremia Status: Resolved Problem Text: monitor. taking po well. recheck in am. (4) Diabetes Status: Chronic Problem Text: Hgba1c 6.5. will monitor. (5) Schizoaffective disorder Status: Chronic Problem Text: routine home medications ordered: lithium resumed. will order baseline level (6) Seizure disorder Status: Chronic Problem Text: home medications ordered: lamictal (7) DVT (deep venous thrombosis) Status: Chronic Problem Text: resumed Eliquis (8) Mental retardation Status: Chronic Problem Text: stable behavior (9) HTN (hypertension) Status: Chronic Problem Text: resume home dose coreg 6.25 mg po bid (10) HLD (hyperlipidemia) Status: Chronic Problem Text: resume home dose Atorvastatin 10 mg po daily Plan/VTE VTE Prophylaxis Ordered?: Yes VS, I&O, 24H, Kenneybonnitin Vital Signs/I&O Vital Signs Date Time Temp Pulse Resp B/P (MAP) Pulse Ox O2 Delivery O2 Flow Rate FiO2 10/29/19 04:00 97.6 85 18 120/58 (78) 95 NIPPV (BIPAP/CPAP) 1.0 10/28/19 20:00 30 I&O- Last 24 Hours up to 6 AM 10/29/19 05:59 Intake Total 2595 ml Output Total 2725 ml Balance -130 ml Laboratory Data 24H LABS Laboratory Tests 2 10/28/19 09:00: Vancomycin Level Trough 23.3H, [place] Level 0.31L 10/29/19 04:36: Nucleated Red Blood Cells % (auto) 0.0, Anion Gap 2L, Glomerular Filtration Rate 32.2L, Calcium Level 9.3 CBC/BMP Laboratory Tests 10/29/19 04:36 Microbiology Microbiology 10/27/19 Blood Culture - Preliminary, Resulted No growth after 24 hours . All specim... 10/27/19 Respiratory Virus Panel (PCR) ([facility]) - Final, Complete Coronavirus Nl63 10/27/19 Blood Culture - Preliminary, Resulted No growth after 24 hours . All specim... BRANDY WRIGHT PA-C Oct 29, 2019 08:54
--- NOTE | 2019-10-29 12:25 | IPN ---
DATE: 10/29/2019 NOTE: Mr. Gerard did well overnight. He used the table top bilevel device without difficulty. He was placed on 1 liter bleed in though it is not clear that he truly required it. This morning he is alert and awake and eating. He offers no complaints. There were no hemodynamic events overnight. OBJECTIVE: PHYSICAL EXAMINATION: VITAL SIGNS: Temperature of 97.6 with a maximum temperature (t-max) of 98.1, pulse 87, blood pressure 117/67, respiratory rate 18, SPO2 in the 90s on 1 meter by nasal cannula. General: Mr. Gerard is sitting in bed in no acute distress. He is eating his breakfast. He had one cough while I was in the room. He is nasal cannula in place. HEENT: Anicteric. Nares: Patent bilaterally. Moist mucosa. O2 tubing in place. Oropharynx clear, no lesions, again with mild right facial droop and tongue deviation (chronic). Neck: Supple, without jugular venous distention (JVD). Without thyromegaly or masses. Trachea is midline. Lymphatics: Without cervical or supraclavicular lymphadenopathy. Lungs: Symmetric excursion, good air entry, no wheeze, rhonchi or crackle on tidal excursion. Normal I to E. No accessory muscle usage or retractions. Cardiovascular: Regular rate and rhythm with a normal S1, S2. No murmur, rub or gallop appreciated. Abdomen: Positive bowel sounds, mild to acute protuberance, soft, nontender, no hepatosplenomegaly or masses appreciated. Extremities: Warm and well-perfused, without clubbing, cyanosis or significant edema. Palpable pedal pulses bilaterally. The right lower garvin is not warm and remains with decreased erythema. The small lesion on the right just above the elbow is clean and not fluctuant. LABORATORY DATA: CBC showed a hemoglobin 10.2, hematocrit 33.5, platelet count 255,000, white blood cell count 8200. Chemistry shows sodium 140, potassium 5.0, chloride 101, bicarbonate 37, anion gap 2, BUN 40, creatinine 2.2, glucose 229, calcium 9.3. Cultures remain negative. Procalcitonin 0.30. IMPRESSION: 1. Acute on chronic respiratory failure with the acute portion being secondary to coronavirus and that portion is resolving. The chronic portion is unknown but thought possibly, in part, secondary to untreated obstructive lead sleep apnea. 2. Coronavirus. 3. Abnormal CT scan with several nodules, recommend consideration of repeat CT in 3 months if clinically indicated. Differential includes inflammatory, infectious, or other. 4. Right garvin cellulitis, improving. 5. Chronic kidney disease, stage III, renal following. 6. Diabetes mellitus, type 2, diet-controlled. 7. Mental retardation. 8. Schizoaffective disorder. 9. Gastroesophageal reflux disease (GERD), on omeprazole. 10. Deep vein thrombosis (DVT) prophylaxis. Fully anticoagulated with Eliquis. 11. Infectious. On Zosyn and vancomycin. 12. Nutrition, full regular diet. RECOMMENDATIONS 1. Procalcitonin returned in the range of low risk for progression to severe sepsis / septic shock with localized infection possible. Given that his presentation was consistent with a viral syndrome and he is positive for coronavirus, would recommend discontinuing broad-spectrum antibiotics. It would be reasonable to continue antibiotics for his cellulitis and possibly his elbow lesion, although that looks as if it is almost resolved. 2. Agree with transfer out of the intensive care unit (ICU). 3. Would recommend discontinuing the Sánchez. 4. We will continue on bedside bilevel therapy as he is now as he resolves his acute illness. If it is felt that he would benefit from this long-term, he will need to be evaluated as an outpatient and will need to be referred to the pulmonary clinic. As we were consulted for noninvasive mechanical ventilation and he no longer has that need, the intensive service will sign off. Please re contact the nurse first assist service or pulmonary service should there be further problems / questions. THAO
--- NOTE | 2019-10-29 13:34 | IPN ---
DATE OF SERVICE: 10/28/2019 SUBJECTIVE: The patient is seen and examined this morning in the intensive care unit at the bedside. Denies any overnight events or complaints. Seen on nasal cannula at the time of my visit. Reports he is thirsty and is requesting drinks at the bedside. He remains with Sánchez catheter in place. His blood gas has improved. Vital Signs: Temperature 98.4, pulse 77, respiratory rate 21, blood pressure 107/70, saturating 98% on bilevel positive airway pressure (BiPAP). Intake yesterday was 980, urine output yesterday was 1600, net negative 620. Weight in the bed scale today is 90 kg. General: The patient is seen sitting in bed, head of the bed elevated, awake, alert and in no apparent distress. He was on nasal cannula at the time of my visit. He was sipping liquids. His sclerae are anicteric. Ear, nose and throat are unremarkable. Neck is supple. Jugular veins are not elevated. Heart sounds are regular, S1, S2. No friction murmur. Lungs are symmetric air entry. No accessory muscle use seen on nasal cannula. No crackle or rale. Abdomen is soft, obese and nontender. Genitourinary shows Sánchez catheter with urine. Extremities are negative for clubbing, cyanosis or edema. Neurologic: He is awake, alert, at baseline mentation, and cooperative with the physical exam. LABORATORY DATA: White count 9.1, hemoglobin 10.7, platelet 255. Sodium 146, potassium 4.6, bicarbonate 40, BUN 32, creatinine 2.4. Renal ultrasound, 10/28/2019, Sánchez catheter in collapsed bladder, echogenic kidneys without hydronephrosis. Bosniak type 1 right renal cyst. INPATIENT MEDICATIONS: Reviewed by myself. He continues on renally dosed vancomycin, Solu-Medrol 80 mg IV every 8 hours, and remainder medications are unchanged from prior. PROBLEMS: 1. Acute kidney injury on chronic kidney disease (CKD) stage III. Baseline creatinine is around 1.8 to 2. Renal function is slightly worse than baseline, and the patient is also mildly hypernatremic. 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 2. Hyperkalemia. It has improved with improvement in his acidosis and no intervention is needed at present. 3. Hypernatremia. It is mild. 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 Recommend liberal oral hydration. 4. Metabolic alkalosis. It is appropriate and secondary to his significant respiratory acidosis. The primary pulmonary team is managing his BiPAP.
--- NOTE | 2019-10-29 14:08 | IPN ---
DATE OF SERVICE: 10/29/2019 SUBJECTIVE: The patient was seen and examined this morning at the bedside in the intensive care unit. He reports he is thirsty and is requesting assistance with beverages. Otherwise, denies any new complaints. Renal function continues to improve towards baseline. Urine output to Sánchez catheter has been adequate. He offers no complaints. Vital Signs: Temperature 98.0, pulse 84, respiratory rate 18, blood pressure 121/66, saturating 95% on 1 liter nasal cannula. Intake yesterday 2600, urine output 2600, equivalent fluid balance. Weight in the bed scale today 89.8 kg. General: The patient is seen awake, alert and sitting in bed with the head of the bed elevated drinking liquids. Chronic tremor in the hand noted. He is on nasal cannula. Sclerae are anicteric. Neck is supple. Jugular veins were not elevated. Heart sounds are regular. S1, S2. There is no edema in the peripheries. Lungs show symmetric air entry. He is comfortable on nasal cannula. There is no accessory muscle use. There is no tachypnea. Abdomen is soft and nontender. There are bowel sounds. Genitourinary: Shows the Sánchez catheter draining clear yellow urine. Extremities are negative for clubbing, cyanosis or edema. Labs: Sodium 140, potassium 5.0, bicarbonate 37, BUN 40, creatinine 2.2, hemoglobin 10.2. INPATIENT MEDICATIONS: Reviewed by myself and no change as compared to yesterday. PROBLEMS: 1. Acute kidney injury on chronic kidney disease (CKD) stage III. Renal function has improved in the past 24 hours and is going back towards baseline. The patient is encouraged for liberal oral fluid hydration. Please keep liquids at bedside within easy reach. 2. Hyperkalemia. It is mild and intermittent. I have added on a 2 gram potassium restriction. 3. Hypernatremia. It was very mild, it has resolved. 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 4. Nephrology signing off at this time. Please reconsult as needed.
--- NOTE | 2019-10-29 20:44 | PHACANCOPD ---
PHARMACY VANCOMYCIN DOSING Pt Demographics Demographics Patient Age:64 , Weight:89.800 , Gender: male Adjusted Body Weight Date: 10/28/19, Adjusted Body Weight: Kg Events Past 24 Hours Events Past 24 Hours: NO: Dialysis, Diuretic Therapy, Change in CrCl, Fever, Elevation in WBC, Pending Diagnostics, Pending Procedures, Other Vancomycin Vancomycin Target Ranges: 15-20 mcg/ml Vancomycin Load Y/N: Yes Load Dose Date Time Vancomycin Load Dose: 2GM Date: 10/27/19 Time: 1300 Vancomycin Dose Date: 10/28/19. Current Vancomycin Dose: [1250MG Q24H] Intermittent Dosing?: No Labs Labs Item Value Date Time White Blood Count 8.2 10^3/uL 10/29/196 Glomerular Filtration Rate 32.2 L 10/29/19 0436 Creatinine 2.21 MG/DL H 10/29/19 0436 Blood Urea Nitrogen 40 MG/DL H 10/29/19 0436 Vancomycin Level Trough 17.7 UG/ML 10/29/19 2000 Vital Signs Label Value Date Time Patient Temperature 97.9 degrees F 10/29/19 1600 Temperature Source Temporal 10/29/19 1600 Micro Microbiology 10/27/19 Blood Culture - Preliminary, Resulted No Growth after 48 hours. All Specime... 10/27/19 Respiratory Virus Panel (PCR) ([facility]) - Final, Complete Coronavirus Nl63 10/27/19 Blood Culture - Preliminary, Resulted No Growth after 48 hours. All Specime... Creatinine Clearance Date:10/28/19. Creatinine Clearance: [~30]. Assessment and Plan Maintaining Current Dose?: Yes Reason for dose change: No Dose Change Pharmacist Note Pharmacist Note Date: 10/29/19. Pharmacist note: Trough of 17.7 is within target range. Will continue current dosing. Will monitor and make adjustments as needed. KASHIF SAM PHARMACY Oct 29, 2019 20:44
[2019-10-29] MEDS: FINASTERIDE 5 MG TAB PO SCH (21:08)
[2019-10-29] MEDS: VANCOMYCIN HCL 750 MG, VIAL MATE ADAPTER 1 EACH in D5W 250 ML IV SCH (21:09)
[2019-10-29] MEDS: FLUTICASONE PROP 0.05% NASAL SPRAY 16 GM (FLONASE) NARES SCH (21:09)
[2019-10-29] MEDS: VANCOMYCIN HCL 500 MG in D5W MINI-BAG PLUS 100 ML IV SCH (22:54)
[2019-10-30] VITALS: BP 118/78
[2019-10-30] MEDS: methylPREDNISolone INJ 125 MG/2 ML VIAL (J2930) IV SCH ×4 (01:15→21:00)
[2019-10-30 04:00] VITALS: BP 122/68
[2019-10-30 04:44] LABS: HEMOGLOBIN 10.3 g/dl (13.5-17.5); MEAN CORPUSCULAR HEMOGLOBIN 29.6 pg (27.0-33.0); MEAN CORPUSCULAR HGB CONC 30.3 g/dl (32.0-36.5); MEAN CORPUSCULAR VOLUME 97.7 fl (80.0-96.0); PLATELET COUNT, AUTOMATED 253 10^3/uL (150-450); RED BLOOD COUNT 3.48 10^6/uL (4.30-6.10); WHITE BLOOD COUNT 8.3 10^3/uL (4.0-10.0)
[2019-10-30 05:31] LABS: CALCIUM LEVEL 10.1 MG/DL (8.8-10.2); CREATININE FOR GFR 2.1 MG/DL (0.70-1.30); GLOMERULAR FILTRATION RATE 34.1 (>49); POTASSIUM SERUM 5.1 MEQ/L (3.5-5.1)
[2019-10-30 08:00] VITALS: BP 131/69
[2019-10-30] MEDS: NYSTATIN 100,000 UNITS/GM TOPICAL PWD 15 GM TOP SCH ×3 (10:00→21:00)
[2019-10-30] MEDS: OLANZapine 5 MG TAB PO SCH ×4 (10:01→20:53)
[2019-10-30] MEDS: LITHIUM CARBONATE 150 MG CAP PO SCH ×2 (10:01→20:51)
[2019-10-30] MEDS: CALCITRIOL 0.25 MCG CAP (S0169) PO SCH (10:02)
[2019-10-30] MEDS: clonazePAM 1 MG TAB PO SCH ×3 (10:02→20:52)
[2019-10-30] MEDS: BENZTROPINE 1 MG TAB PO SCH ×2 (10:02→20:52)
[2019-10-30] MEDS: MULTIVITAMINS/MINERALS THERAP 1 TAB PO SCH (10:03)
[2019-10-30] MEDS: CARVedilol 6.25 MG TAB PO SCH ×2 (10:03→20:56)
[2019-10-30] MEDS: FERROUS GLUCONATE 324 MG TAB PO SCH (10:03)
[2019-10-30] MEDS: ATORVASTATIN 10 MG TAB PO SCH (10:04)
[2019-10-30] MEDS: OMEPRAZOLE 20 MG CAP PO SCH (10:04)
[2019-10-30] MEDS: hydrOXYzine 25 MG TAB PO SCH ×3 (10:04→20:54)
[2019-10-30] MEDS: APIXABAN 2.5 MG TAB (ELIQUIS) PO SCH ×2 (10:04→20:51)
[2019-10-30] MEDS: AZELASTINE 137MCG NASAL SPY 30 ML (ASTELIN) SCH ×2 (10:05→20:54)
--- NOTE | 2019-10-30 11:03 | IPNPDOC ---
Subjective Date Seen The patient was seen on 10/30/19. Subjective Chief Complaint/HPI Pt this morning states that he is feeling better. [facility] staff at bedside, no new concerns. General: Denies: Fatigue Constitutional: Denies: Chills, Fever Pulmonary: Denies: Dyspnea, Cough Cardiovascular: Denies: Chest Pain Gastrointestinal: Denies: Nausea, Vomiting Psych: Reports: Mood Normal Objective Physical Examination General Exam: Positive: Alert, No Acute Distress Eye Exam: Negative: Sclera icteric ENT Exam: Positive: Mucous membr. moist/pink Neck Exam: Positive: Supple; Negative: JVD, thyromegaly Chest Exam: Positive: Wheezing, Diminished (bibasilar) Telemetry: Positive: No significant arrhythmia Abdomen Exam: Positive: Normal bowel sounds, Soft; Negative: Tenderness, Hepatospenomegaly Extremity Exam: Negative: Edema Neuro Exam: Positive: Normal Speech Psych Exam: Positive: Oriented x 3 Assessment /Plan Problems (1) Coronavirus infection Problem Text: CORONAVIRUS NL63 on respiratory panel. Procalcitonin level 0.30. (2) Acute on chronic respiratory failure with hypoxia and hypercapnia Status: Acute Problem Text: 10/29 Pulm has signed off as of yesterday, nursing spoke with Dr Webber while I was present to address the Bipap. Reports that pt will need to be DC without, may need home O2, then will need close outpt f/u with Pulm for outpt testing. 10/28 Pulm following, Bipap while sleeping, otherwise has been weaned to NC. (3) Hypernatremia Status: Resolved Problem Text: monitor. taking po well. recheck in am. (4) Diabetes Status: Chronic Problem Text: Hgba1c 6.5. will monitor. (5) Schizoaffective disorder Status: Chronic Problem Text: routine home medications ordered: lithium resumed. will order baseline level (6) Seizure disorder Status: Chronic Problem Text: home medications ordered: lamictal (7) DVT (deep venous thrombosis) Status: Chronic Problem Text: resumed Eliquis (8) Mental retardation Status: Chronic Problem Text: stable behavior (9) HTN (hypertension) Status: Chronic Problem Text: resume home dose coreg 6.25 mg po bid (10) HLD (hyperlipidemia) Status: Chronic Problem Text: resume home dose Atorvastatin 10 mg po daily Plan/VTE VTE Prophylaxis Ordered?: Yes VS, I&O, 24H, Fishbone Vital Signs/I&O Vital Signs Date Time Temp Pulse Resp B/P (MAP) Pulse Ox O2 Delivery O2 Flow Rate FiO2 10/30/19 10:03 83 125/78 10/30/19 08:00 97.2 26 95 Nasal Cannula 1.0 10/28/19 20:00 30 I&O- Last 24 Hours up to 6 AM 10/30/19 06:00 Intake Total 3715 ml Output Total 4900 ml Balance -1185 ml Laboratory Data 24H LABS Laboratory Tests 2 10/29/19 20:00: Vancomycin Level Trough 17.7 10/30/19 04:22: Nucleated Red Blood Cells % (auto) 0.0, Anion Gap 3L, Glomerular Filtration Rate 34.1L, Calcium Level 10.1 CBC/BMP Laboratory Tests 10/30/19 04:22 Microbiology Microbiology 10/27/19 Blood Culture - Preliminary, Resulted No Growth after 72 hours. All specime... 10/27/19 Respiratory Virus Panel (PCR) ([facility]) - Final, Complete Coronavirus Nl63 10/27/19 Blood Culture - Preliminary, Resulted No Growth after 72 hours. All specime... BRANDY WRIGHT PA-C Oct 30, 2019 11:03
[2019-10-30] MEDS: DOXYCYCLINE HYCLATE 100 MG TAB PO SCH ×2 (11:30→18:03)
[2019-10-30 15:31] VITALS: BP 138/86
[2019-10-30 20:00] VITALS: BP 134/71
[2019-10-30] MEDS: FINASTERIDE 5 MG TAB PO SCH (20:52)
[2019-10-30] MEDS: FLUTICASONE PROP 0.05% NASAL SPRAY 16 GM (FLONASE) NARES SCH ×2 (20:54→21:00)
[2019-10-31 02:00] VITALS: BP 117/66
[2019-10-31 06:00] VITALS: BP 110/67
[2019-10-31] MEDS: DOXYCYCLINE HYCLATE 100 MG TAB PO SCH ×2 (06:33→18:45)
[2019-10-31 07:01] LABS: HEMATOCRIT 36.3 % (42.0-52.0); MEAN CORPUSCULAR HEMOGLOBIN 29.6 pg (27.0-33.0); MEAN CORPUSCULAR HGB CONC 30.3 g/dl (32.0-36.5); MEAN CORPUSCULAR VOLUME 97.6 fl (80.0-96.0); PLATELET COUNT, AUTOMATED 224 10^3/uL (150-450); RED BLOOD COUNT 3.72 10^6/uL (4.30-6.10); WHITE BLOOD COUNT 7.1 10^3/uL (4.0-10.0)
[2019-10-31 07:23] LABS: CREATININE FOR GFR 1.99 MG/DL (0.70-1.30); GLOMERULAR FILTRATION RATE 36.3 (>49); POTASSIUM SERUM 4.1 MEQ/L (3.5-5.1)
[2019-10-31] MEDS: clonazePAM 1 MG TAB PO SCH ×3 (08:33→20:28)
[2019-10-31] MEDS: methylPREDNISolone INJ 125 MG/2 ML VIAL (J2930) IV SCH ×2 (08:33→20:30)
[2019-10-31] MEDS: OMEPRAZOLE 20 MG CAP PO SCH (08:34)
[2019-10-31] MEDS: OLANZapine 5 MG TAB PO SCH ×4 (08:34→20:28)
[2019-10-31] MEDS: BENZTROPINE 1 MG TAB PO SCH ×2 (08:34→20:30)
[2019-10-31] MEDS: ATORVASTATIN 10 MG TAB PO SCH (08:34)
[2019-10-31] MEDS: FERROUS GLUCONATE 324 MG TAB PO SCH (08:34)
[2019-10-31] MEDS: MULTIVITAMINS/MINERALS THERAP 1 TAB PO SCH (08:34)
[2019-10-31] MEDS: hydrOXYzine 25 MG TAB PO SCH ×3 (08:34→20:30)
[2019-10-31] MEDS: APIXABAN 2.5 MG TAB (ELIQUIS) PO SCH ×2 (08:34→20:29)
[2019-10-31] MEDS: CARVedilol 6.25 MG TAB PO SCH ×2 (08:34→20:30)
[2019-10-31] MEDS: LITHIUM CARBONATE 150 MG CAP PO SCH ×2 (08:35→20:29)
[2019-10-31] MEDS: NYSTATIN 100,000 UNITS/GM TOPICAL PWD 15 GM TOP SCH ×2 (08:36→20:31)
[2019-10-31] MEDS: AZELASTINE 137MCG NASAL SPY 30 ML (ASTELIN) SCH ×2 (08:36→20:31)
[2019-10-31 10:00] VITALS: BP 131/81
[2019-10-31 14:00] VITALS: BP 138/79
--- NOTE | 2019-10-31 16:18 | IPNPDOC ---
Subjective Date Seen The patient was seen on 10/31/19. Subjective Chief Complaint/HPI He reports he is feeling fairly well and does not have concerns about his breathing today. He really would like to go home as soon as possible. Staff reports he is doing well, but that he still occasionally tries to do things that cause him problems (like drinking too fast). General: Reports: ROS Unobtainable (Limited secondary to his intellectual disability) Constitutional: Denies: Chills, Fever Pulmonary: Reports: Dyspnea, Cough Cardiovascular: Denies: Chest Pain, Palpitations Gastrointestinal: Denies: Nausea, Vomiting Objective Physical Examination General Exam: Positive: Alert (laying in bed interacting with his staff member when I entered the room), No Acute Distress Eye Exam: Negative: Sclera icteric ENT Exam: Positive: Mucous membr. moist/pink Neck Exam: Positive: Supple; Negative: Lymphadenopathy Chest Exam: Positive: Wheezing (only scattered inspiratory and expiratory), Diminished (bibasilar) Telemetry: Positive: No significant arrhythmia Abdomen Exam: Positive: Normal bowel sounds, Soft; Negative: Tenderness, Hepatospenomegaly Extremity Exam: Negative: Edema Neuro Exam: Positive: Normal Speech Psych Exam: Negative: Anxiety Assessment /Plan Problems (1) Acute on chronic respiratory failure with hypoxia and hypercapnia Status: Acute Problem Text: 10/30 - has been weaned off oxygen most of the day. His saturations did dip down while up to go to the bathroom and while sleeping. 10/29 Pulm has signed off as of yesterday, nursing spoke with Dr Webber while I was present to address the Bipap. Reports that pt will need to be DC without, may need home O2, then will need close outpt f/u with Pulm for outpt testing. 10/28 Pulm following, Bipap while sleeping, otherwise has been weaned to NC. (2) Coronavirus infection Problem Text: CORONAVIRUS NL63 on respiratory panel. Procalcitonin level 0.30. (3) Hypernatremia Status: Resolved Problem Text: monitor. taking po well. recheck in am. (4) Diabetes Status: Chronic Problem Text: Hgba1c 6.5. will monitor. (5) Schizoaffective disorder Status: Chronic Problem Text: routine home medications ordered: lithium resumed. will order baseline level (6) Seizure disorder Status: Chronic Problem Text: home medications ordered: lamictal (7) DVT (deep venous thrombosis) Status: Chronic Problem Text: resumed Eliquis (8) Mental retardation Status: Chronic Problem Text: stable behavior (9) HTN (hypertension) Status: Chronic Problem Text: resume home dose coreg 6.25 mg po bid (10) HLD (hyperlipidemia) Status: Chronic Problem Text: resume home dose Atorvastatin 10 mg po daily Plan/VTE VTE Prophylaxis Ordered?: Yes Plan Anticipated Discharge: Other Anticipated D/C (back to [facility] tomorrow if he doesn't require supplemental oxygen) VS, I&O, 24H, Fishbone Vital Signs/I&O Vital Signs Date Time Temp Pulse Resp B/P (MAP) Pulse Ox O2 Delivery O2 Flow Rate FiO2 10/31/19 14:00 98.1 89 14 138/79 (98) 90 Nasal Cannula 1.0 10/28/19 20:00 30 I&O- Last 24 Hours up to 6 AM 10/31/19 06:00 Intake Total 6870 ml Output Total 4025 ml Balance 2845 ml Laboratory Data 24H LABS Laboratory Tests 2 10/31/19 06:31: Nucleated Red Blood Cells % (auto) 0.0, Anion Gap 1L, Glomerular Filtration Rate 36.3L, Calcium Level 10.0 CBC/BMP Laboratory Tests 10/31/19 06:31 Microbiology Microbiology 10/27/19 Blood Culture - Preliminary, Resulted No Growth after 72 hours. All specime... 10/27/19 Respiratory Virus Panel (PCR) (CAROL) - Final, Complete Coronavirus Nl63 10/27/19 Blood Culture - Preliminary, Resulted No Growth after 72 hours. All specime... Ned Bowman MD Oct 31, 2019 4:18 pm
[2019-10-31 20:00] VITALS: BP 118/82
[2019-10-31] MEDS: FINASTERIDE 5 MG TAB PO SCH (20:29)
[2019-10-31] MEDS: FLUTICASONE PROP 0.05% NASAL SPRAY 16 GM (FLONASE) NARES SCH (20:30)
[2019-11-01 02:00] VITALS: BP 120/78
[2019-11-01 06:00] VITALS: BP 136/81
[2019-11-01] MEDS: DOXYCYCLINE HYCLATE 100 MG TAB PO SCH (06:30)
[2019-11-01 07:40] LABS: HEMATOCRIT 38.2 % (42.0-52.0); HEMOGLOBIN 11.5 g/dl (13.5-17.5); MEAN CORPUSCULAR HEMOGLOBIN 29.5 pg (27.0-33.0); MEAN CORPUSCULAR HGB CONC 30.1 g/dl (32.0-36.5); MEAN CORPUSCULAR VOLUME 97.9 fl (80.0-96.0); PLATELET COUNT, AUTOMATED 245 10^3/uL (150-450); WHITE BLOOD COUNT 8.5 10^3/uL (4.0-10.0)
[2019-11-01 08:00] LABS: CALCIUM LEVEL 10.1 MG/DL (8.8-10.2); CREATININE FOR GFR 1.85 MG/DL (0.70-1.30); GLOMERULAR FILTRATION RATE 39.5 (>49); POTASSIUM SERUM 5.2 MEQ/L (3.5-5.1)
[2019-11-01] MEDS: clonazePAM 1 MG TAB PO SCH (08:28)
[2019-11-01] MEDS: FERROUS GLUCONATE 324 MG TAB PO SCH (08:28)
[2019-11-01 08:29] VITALS: BP 136/81
[2019-11-01] MEDS: LITHIUM CARBONATE 150 MG CAP PO SCH (08:29)
[2019-11-01] MEDS: CARVedilol 6.25 MG TAB PO SCH (08:29)
[2019-11-01] MEDS: MULTIVITAMINS/MINERALS THERAP 1 TAB PO SCH (08:29)
[2019-11-01] MEDS: BENZTROPINE 1 MG TAB PO SCH (08:29)
[2019-11-01] MEDS: OMEPRAZOLE 20 MG CAP PO SCH (08:29)
[2019-11-01] MEDS: hydrOXYzine 25 MG TAB PO SCH (08:29)
[2019-11-01] MEDS: APIXABAN 2.5 MG TAB (ELIQUIS) PO SCH (08:29)
[2019-11-01] MEDS: NYSTATIN 100,000 UNITS/GM TOPICAL PWD 15 GM TOP SCH (08:30)
[2019-11-01] MEDS: methylPREDNISolone INJ 125 MG/2 ML VIAL (J2930) IV SCH (08:30)
[2019-11-01] MEDS: OLANZapine 5 MG TAB PO SCH ×2 (08:30→12:34)
[2019-11-01] MEDS: AZELASTINE 137MCG NASAL SPY 30 ML (ASTELIN) SCH (08:30)
[2019-11-01] MEDS: ATORVASTATIN 10 MG TAB PO SCH (08:30)
--- NOTE | 2019-11-01 12:54 | DS.PDOC ---
Discharge Summary General Date of Admission Oct 27, 2019 at 10:40 Date of Discharge 11/01/19 Primary Care Physician: Mickey Herrera MD Attending Physician: Ned Bowman MD Specialist/Consultants Involve: Aline BRADLEY MD Specialist/Consultants Involve Drs. Miles (nephrology) Discharge Summary PROCEDURES PERFORMED DURING STAY: [None]. ADMITTING DIAGNOSES: 1. . DISCHARGE DIAGNOSES: 1. . COMPLICATIONS/CHIEF COMPLAINT: Acute Chronic Respiratory Failure W Hypoxia. HISTORY OF PRESENT ILLNESS: . HOSPITAL COURSE: . DISCHARGE MEDICATIONS: Please see below. ALLERGIES: Please see below. PHYSICAL EXAMINATION ON DISCHARGE: VITAL SIGNS: Please see below. GENERAL: HEENT: NECK: CARDIOVASCULAR EXAMINATION: RESPIRATORY EXAMINATION: ABDOMINAL EXAMINATION: EXTREMITIES: SKIN: NEUROLOGICAL EXAMINATION: PSYCHIATRIC EXAMINATION: LABORATORY DATA: Please see below. IMAGING: PROGNOSIS: ACTIVITY: [As tolerated]. DIET: DISCHARGE PLAN: DISPOSITION: . DISCHARGE INSTRUCTIONS: 1. . ITEMS TO FOLLOWUP ON ON OUTPATIENT: 1. . DISCHARGE CONDITION: [Stable]. TIME SPENT ON DISCHARGE: Greater than minutes. Vital Signs/I&Os Vital Signs Date Time Temp Pulse Resp B/P (MAP) Pulse Ox O2 Delivery O2 Flow Rate FiO2 11/01/19 08:29 84 136/81 11/01/19 06:00 97.7 20 96 Room Air 10/31/19 20:00 0.5 10/28/19 20:00 30 I&O- Last 24 Hours up to 6 AM 11/01/19 05:59 Intake Total 3520 ml Output Total 1100 ml Balance 2420 ml Laboratory Data Labs 24H Laboratory Tests 2 11/01/19 07:15: Nucleated Red Blood Cells % (auto) 0.0 11/01/19 07:16: Anion Gap 3L, Glomerular Filtration Rate 39.5L, Calcium Level 10.1 CBC/BMP Laboratory Tests 11/01/19 07:15 11/01/19 07:16 Microbiology Microbiology 10/27/19 Blood Culture - Final, Complete NO GROWTH AFTER 5 DAYS 10/27/19 Respiratory Virus Panel (PCR) (CAROL) - Final, Complete Coronavirus Nl63 10/27/19 Blood Culture - Final, Complete NO GROWTH AFTER 5 DAYS Discharge Medications Scheduled Apixaban (Eliquis) 2.5 Mg Tab, 2.5 MG PO BID, (Reported) Atorvastatin Calcium (Atorvastatin Calcium) 10 Mg Tablet, 10 MG PO DAILY, (Reported) Azelastine HCl (Azelastine HCl) 0.1 % Spr, 1 SPRAY NA BID, (Reported) Benztropine Mesylate (Benztropine Mesylate) 1 Mg Tab, 1 MG PO BID, (Reported) Calcitriol (Rocaltrol) 0.25 Mcg Cap, 0.25 MCG PO 5XW, (Reported) SATURDAY-SATURDAY Carvedilol (Carvedilol) 6.25 Mg Tab, 6.25 MG PO BID, (Reported) Clonazepam (Clonazepam) 1 Mg Tab, 1 MG PO TID, (Reported) 0800/1600/QHS Ferrous Gluconate (Ferrous Gluconate) 324 Mg Tab, 324 MG PO DAILY, (Reported) Finasteride (Finasteride) 5 Mg Tablet, 5 MG PO QHS, (Reported) Fluticasone Propionate (Flonase Allergy Relief) 9.9 Ml [place].susp, 2 SPRAY NARES QHS, (Reported) Hydroxyzine HCl (Hydroxyzine HCl) 25 Mg Tablet, 25 MG PO TID, (Reported) [place] Carbonate ([place] Carbonate) 150 Mg Cap, 150 MG PO BID, (Reported) Multivitamins (Thera M Plus Tablet) 1 Tab Tab, 1 TAB PO DAILY, (Reported) Nystatin (Nystatin Powder) 100,000 Unit/Gm Pow, 1 DOSE TOP BID, (Reported) APPLY BETWEEN TOES Olanzapine (Zyprexa) 5 Mg Tab, 5 MG PO TID, (Reported) AM/NOON/1600 Olanzapine (Olanzapine) 5 Mg Tablet, 10 MG PO QHS, (Reported) Omeprazole (Omeprazole) 40 Mg Cap, 40 MG PO DAILY, (Reported) Allergies Coded Allergies: NSAIDS (Non-Steroidal Anti-Inflamma (Verified Adverse Reaction, Intermediate, GERD , LIVER ISSUES, 02/18/19) Ned Bowman MD Nov 01, 2019 12:54
[2019-11-01] MEDS ORDERED: DOXY100T PO (13:06)
[2019-11-01] MEDS ORDERED: PRED10TA2 PO (13:06)
[2019-11-01 14:00] VITALS: BP 151/95
== END 2019-11-01 15:40 | disposition home or self-care (01) | DRG 189 ==
LOC: M ED 09:13 → EDBD 09:13 → M ED INP 10:40 → ENRESERVTM 10:51 → ENRESERVDT 10:51 → M ICU 11:55 → M MS5PR 10-30 15:05
PROVIDERS: ADMIT General Practice; ATTEND Family Medicine
DX: J96.22 Acute and chronic respiratory failure with hypercapnia (principal); E87.0 Hyperosmolality and hypernatremia; L03.115 Cellulitis of right lower limb; N17.9 Acute kidney failure, unspecified; E87.2 Acidosis; B97.29 Other coronavirus as the cause of diseases classified elsewhere; Z79.899 Other long term (current) drug therapy; Z88.8 Allergy status to other drugs, medicaments and biological substances; N18.3 Chronic kidney disease, stage 3 (moderate); Z79.01 Long term (current) use of anticoagulants; Z86.718 Personal history of other venous thrombosis and embolism; I12.9 Hypertensive chronic kidney disease with stage 1 through stage 4 chronic kidney disease, or unspecified chronic kidney disease; F41.9 Anxiety disorder, unspecified; F25.9 Schizoaffective disorder, unspecified; F79 Unspecified intellectual disabilities; D50.9 Iron deficiency anemia, unspecified; K21.9 Gastro-esophageal reflux disease without esophagitis; E87.5 Hyperkalemia; G40.909 Epilepsy, unspecified, not intractable, without status epilepticus; E11.9 Type 2 diabetes mellitus without complications; E78.5 Hyperlipidemia, unspecified

== ENCOUNTER 2019-12-22 09:40 | Inpatient (IN) | payer MEDICARE, MEDICAID ==
[~2019-12-22] VITALS: Ht 160 cm; Wt 89.9 kg
[~2019-12-22 09:40] MED LIST changes: -ERYT1OIN26 OU; +ERYT5OIN25 OU; +OLAN5TAB PO; +PRED10TA2 PO
[2019-12-22] MEDS ORDERED: ACETAMINOPHEN 650 MG SUPP PR ONE (10:30)
[2019-12-22 10:47] LABS: VENOUS HCO3 32.4 MEQ/L (23.0-27.0); VENOUS O2 SATURATION 98.8 % (60.0-80.0); VENOUS PARTIAL PRESSURE CO2 60.8 mmHg (38.0-50.0); VENOUS PARTIAL PRESSURE O2 141.6 mmHg (30.0-50.0); VENOUS PH 7.344 UNITS (7.330-7.430); VENOUS TOTAL CO2 34.2 MEQ/L (24.0-28.0)
[2019-12-22 10:49] LABS: BASO % 0.2 % (0.0-1.0); EOS % 0.2 % (0.0-3.0); HEMATOCRIT 39.8 % (42.0-52.0); HEMOGLOBIN 12.2 g/dl (13.5-17.5); LYMPH # 0.4 10^3/uL (1.5-5.0); LYMPH % 2.3 % (24.0-44.0); MEAN CORPUSCULAR HEMOGLOBIN 29.9 pg (27.0-33.0); MEAN CORPUSCULAR HGB CONC 30.7 g/dl (32.0-36.5); MEAN CORPUSCULAR VOLUME 97.5 fl (80.0-96.0); MONO % 5.7 % (0.0-5.0); NEUTROPHILS # 15.7 10^3/uL (1.5-8.5); NEUTROPHILS % 90.3 % (36.0-66.0); PLATELET COUNT, AUTOMATED 194 10^3/uL (150-450); RED BLOOD COUNT 4.08 10^6/uL (4.30-6.10); WHITE BLOOD COUNT 17.3 10^3/uL (4.0-10.0)
[2019-12-22 11:05] LABS: INR 1.13; PROTHROMBIN TIME 14.2 SECONDS (11.8-14.0)
[2019-12-22 11:06] LABS: PARTIAL THROMBOPLASTIN TIME 42.8 SECONDS (25.0-38.4)
--- NOTE | 2019-12-22 11:16 | REP ---
REASON: Pyrexia. COMPARISON: 10/27/2019 The technique utilized in obtaining the radiograph has magnified the cardiac silhouette and accentuated the interstitial markings. There is cardiomegaly accentuated by technique. Once again, lung alexandre are hypo expanded. Once again, there is evidence to suggest pulmonary vascular redistribution, however, the examination was obtained in a semiupright fashion. The opacity seen previously in the left lower lobe is not definitely present today. There are no new abnormal opacities. There is no change in the osseous structures. IMPRESSION: Cardiomegaly. Technical factors as described above. I cannot rule out the possibility of mild interstitial edema. PA and lateral views of the chest are recommended. Electronically Signed by Terrell Dickson DO 12/22/2019 12:09 P
[2019-12-22 11:28] LABS: ALBUMIN 3.4 GM/DL (3.2-5.2); ALT/SGPT 18 U/L (12-78); BILIRUBIN,DIRECT 0.2 MG/DL (0.0-0.2); BLOOD UREA NITROGEN 30 MG/DL (7-18); CALCIUM LEVEL 9.5 MG/DL (8.8-10.2); CARBON DIOXIDE LEVEL 34 MEQ/L (21-32); CHLORIDE LEVEL 102 MEQ/L (98-107); CK-MB VALUE MASS < 1.0 NG/ML (<3.6); CPK CREATINE PHOSPHOKINASE 26 U/L (39-308); CREATININE FOR GFR 2.48 MG/DL (0.70-1.30); GLOMERULAR FILTRATION RATE 28.2 (>49); GLUCOSE, FASTING 280 MG/DL (70-100); LIPASE 46 U/L (73-393); MB/CK RELATIVE INDEX 3.85 (< OR =4); POTASSIUM SERUM 5.1 MEQ/L (3.5-5.1); SODIUM LEVEL 140 MEQ/L (136-145); TROPONIN I < 0.02 NG/ML (< 0.10)
[2019-12-22] MEDS ORDERED: NS 1,000 ML IV SCH (11:30)
--- NOTE | 2019-12-22 11:37 | REP ---
Right lower extremity Duplex Doppler venous ultrasound: Real time compression and duplex Doppler interrogation of the right lower extremity deep venous system is performed. The right common femoral, superficial femoral and popliteal veins are fully compressible with transducer pressure and demonstrate normal spontaneous and phasic flow, without evidence of deep venous thrombosis. Impression: No evidence of deep venous thrombosis of the right lower extremity femoral popliteal venous system. There are two enlarged right inguinal lymph nodes with fatty lesly, measuring 3.0 x 2.2 x 2.6 cm and 4.0 x 2.2 x 2.4 cm. Electronically Signed by Mikal Tai MD 12/22/2019 11:28 A
[2019-12-22] MEDS ORDERED: IBUPROFEN 100 MG/5 ML SUSP UDC DYE FREE As Ordered ONE (11:59)
[2019-12-22] MEDS ORDERED: IBUPROFEN 100 MG/5 ML SUSP UDC DYE FREE PO ONE (12:00)
[2019-12-22] MEDS ORDERED: CEFTAROLINE FOSAMIL 600 MG in D5W MINI-BAG PLUS 50 ML IV ONE (12:15)
[2019-12-22 12:31] LABS: LITHIUM LEVEL 0.63 MEQ/L (0.60-1.20)
[2019-12-22] MEDS ORDERED: COLA100C5 PO (13:20)
[2019-12-22] MEDS ORDERED: LAMI1TAB9 PO (13:20)
[2019-12-22] MEDS ORDERED: HALO5TA PO (13:20)
[2019-12-22] MEDS ORDERED: ACETAMINOPHEN TAB 650MG DOSE (2X325MG) PO PRN (13:45)
[2019-12-22] MEDS ORDERED: PILL CUTTER 1 EACH XX PRN (14:30)
[2019-12-22 14:50] VITALS: BP 106/63
[2019-12-22] MEDS: NS 1,000 ML IV SCH ×2 (14:53→21:21)
[2019-12-22] MEDS: clonazePAM 1 MG TAB PO SCH ×3 (15:02→21:35)
--- NOTE | 2019-12-22 15:09 | HPEPDOC ---
[facility] Medical History & Physical Date of Admission December 22, 2019 Date of Service: December 22, 2019 Attending Physician: Kristal Garcia MD History and Physical CHIEF COMPLAINT: Fever HISTORY OF PRESENT ILLNESS: Patient is a 64-year-old male with past medical history of recurrent right lower extremity cellulitis, hypertension, iron deficiency anemia, CK D stage III, chronic femoral vein thrombosis in the right lower extremity on our request, GERD, history of seizures, diabetes mellitus type 2, schizoaffective disorder, anxiety, mental handicap, secondary hyperparathyroidism of renal cause who presented to [facility] emergency room from [facility] with fever according to staff. The patient is a poor historian and most of the information was given to us by the industrial sales representative from the home and ER notes. There was reports of sudden onset of fever, increased weakness, lethargy, decreased appetite, substernal chest pain described as sharp, intermittent, 4- 5/10, resolved on its own. The pain was not associated with activity or a particular activity. The patient denied nausea, vomiting, shortness of breath, recent sick contacts. The patient has a history of recurrent right lower extremity cellulitis and is on chronic antibiotic treatment, he's had multiple hospitalizations in the past. According to staff his right lower extremity has looked increasingly red and has become more warm to touch over the past several days. He also follows with adult health clinical nurse specialist outside of the hospital. In the ER, VS showed temperature 102.8, pulse [id number], blood pressure 121/80, O2 sat 96% on room air. Patient appeared diaphoretic, denied chest pain on exam. Trop neg, ECG showed sinus tachycardia with possible anterior WI of indeterminate age, old probably WI inferior- all similar to prior ECG on file from 10/27/2019. Right lower extremity was red, warm, slightly tender to touch. He had chronic skin changes below the knee; however, above the right knee there appeared to be new areas of cellulitis developing extending into the groin. There was no redness in the groin or in the genital area. Chest x-ray showed cardiomegaly, possibility of mild interstitial edema. PA and lateral views of the chest were recommended. Doppler RLE showed no evidence of deep venous thrombosis of the right lower extremity femoral popliteal venous system. WBC 17K, LA elevated at 2.6, COVID neg. Cr 2.48, baseline Cr 1.95-2.5. He was started on IVFs and given IV ceftaroline x 1 dose. Patient showed little improvement in VS and remained lethargic. He was admitted for recurrent RLE cellulitis, sepsis. REVIEW OF SYSTEMS: CONSTITUTIONAL: Denies unexplained weight gain or weight loss EYES: Denies eye drainage, eye pain, visual changes, dry/irritated eye EARS, NOSE, MOUTH, THROAT: Denies difficulty hearing, ringing in ears, mouth sores, loose teeth, sore throat, facial numbness or pain NECK: Denies swollen glands CARDIOVASCULAR: Denies irregular heartbeat, racing heart, pain in legs with walking RESPIRATORY: Denies shortness of breath, wheezing, sputum production, oxygen at home, coughing up blood, cough lasting > 1 month GASTROINTESTINAL: Denies abdominal pain, constipation, bloody stool, diarrhea, heartburn, nausea, vomiting GENITOURINARY: Denies painful urination, bloody urine, frequent urination, urgency, leaking urine, impotence MUSCULOSKELETAL: Denies joint pain, muscle pain, leg swelling INTEGUMENTARY: Denies itching, change in existing skin lesion, hair loss or increase, breast changes. NEUROLOGICAL: Denies headaches, dizziness, difficulty walking, numbness or tingling PAST MEDICAL HISTORY: 1. Recurrent right lower extremity cellulitis, prior hospitalizations on chronic suppressive antibiotic therapy 2. Hypertension 3. Iron deficiency anemia 4. CK D stage III 5. Hyperlipidemia 6. History of seizure 7. GERD 8. Diabetes mellitus type 2 9. Mental disability 10. Secondary hyperparathyroidism of renal cause 11. Schizoaffective disorder 12. Anxiety 13. Behavioral issues, aggression 14. Chronic venous stasis dermatitis and ulcers 15. Chronic respiratory failure history PAST SURGICAL HISTORY: 1. Right lower extremity surgery FAMILY HISTORY: The patient was a poor historian due to his mental disability and lethargy, but the following information was collected from notes sent over from the home: Father: Unknown history Mother: Own history, Siblings: 16 siblings, history unknown according to notes SOCIAL HISTORY: Current smoker of cigarettes and cigars, 5 cigarettes or less daily. The patient has no history of alcohol or drug abuse. The patient lives [place] at [facility]. He is a full code. ALLERGIES: Please see below. HOME MEDICATIONS: Please see below. PHYSICAL EXAMINATION: CONSTITUTIONAL: No acute distress, lethargic, resting in bed, AAO x 1 EYES: PERRLA, EOM intact HENT, MOUTH: Normocephalic, atraumatic,dry mucous membranes, NECK: SUPPLE, no JVD, no lymphadenopathy, no carotid bruit CV: tachycardic, Regular rhythm, S1S2 normal, no murmurs/rubs/gallops RESPIRATORY: Clear to auscultation bilaterally, no rales/rhonchi/wheezes GI: Distended abdomen, nontender. BS positive in 4 quadrants, soft, no rebound or guarding, no organomegaly : Deferred MUSCULOSKELETAL: Normal ROM. No cyanosis, clubbing, swelling, joint deformity. INTEGUMENTARY: Multiple small scabbed areas on the RLE, no open sores. Warm, erythematous and slightly tender to touch below the right knee. Areas of redness/rash above the right knee/on right thigh appears cellulitic, +1 edema, nonpitting below right knee. LLE no redness. NEUROLOGIC: Cranial Nerves II-XII are intact, no focal deficits LABORATORY DATA: Please see below IMAGING: Doppler RLE: showed no evidence of deep venous thrombosis of the right lower extremity femoral popliteal venous system. CXR: Cardiomegaly. Technical factors as described above. I cannot rule out the possibility of mild interstitial edema. PA and lateral views of the chest are recommended. Note: CXR PA/lateral being done now and will f/u results. ASSESSMENT: 64-year-old male with history of recurrent right lower from the cellulitis admitted under inpatient status for worsening right lower extremity cellulitis, sepsis. PLAN: 1. Recurrent right lower extremity cellulitis, sepsis. Hx of chronic venous statis/dermatitis; however, this does not look like chronic skin changes. On daily doxycycline but lactic acid incr, WBC greater than 17,000, febrile. F/u repeat LA. C/w IVFs, Ceftaroline, tylenol PRN, daily labs, telemetry. 2. HTN. BP slightly lower than normal at 109/60. On IVFs for sepsis, holding BB today, resume if BP increases. 3. Chest pain. Currently resolved. CXR above with additional views to be obtained. BNP mildly elevated, abnormal ECG, trop neg x1. F/u 2 additional troponin. Resume home meds, holding BB due to lower than normal BP. 4. Mental disability/schizoaffective disorder/anxiety/ behavioral issues with aggression. Currently stable. Resume all home medications. Patient has industrial sales representative with him at bedside from his facility. 5. Iron deficiency anemia. Stable. C/w iron supplement. F/u CBC daily. 6. Hx of DVT. New doppler RLE neg. C/w anticoagulation. 7. HLD. C/w statin. 8. CKD Stage III. BL Cr appears to be 1.9-2.5. At baseline currently. F/u daily labs. 9. Hx of seizure. No seizure-like activity. C/w home medications. 10. GERD. C/w PPI. 11. BPH. C/w finasteride. 12. DM type II. Not on home medications. 280 on initial blood draw. Start on ISS, consistent carb diet, AC/HS blood sugar checks. 13. DVT px. Eliquis BID. DISPOSITION: Early admitted under inpatient status. Plan is for patient to return to prior living situation on discharge when medically cleared. Vital Signs Vital Signs Date Time Temp Pulse Resp B/P (MAP) Pulse Ox O2 Delivery O2 Flow Rate FiO2 12/22/19 14:16 103 93 12/22/19 14:15 96/51 (66) 12/22/19 13:10 101.6 12/22/19 10:51 Nasal Cannula 4.0 12/22/19 10:45 32 Laboratory Data Labs 24H Laboratory Tests 2 12/22/19 10:12: Immature Granulocyte % (Auto) 1.3, Neutrophils (%) (Auto) 90.3H, Lymphocytes (%) (Auto) 2.3L, Monocytes (%) (Auto) 5.7H, Eosinophils (%) (Auto) 0.2, Basophils (%) (Auto) 0.2, Neutrophils # (Auto) 15.7H, Lymphocytes # (Auto) 0.4L, Monocytes # (Auto) 1.0H, Eosinophils # (Auto) 0.0, Basophils # (Auto) 0.0, Nucleated Red Blood Cells % (auto) 0.0, Prothrombin Time 14.2H, Prothromb Time International Ratio 1.13, Activated Partial Thromboplast Time 42.8H, Lactic Acid Level 2.6*H, Coronavirus (COVID-19)(PCR) NEGATIVE 12/22/19 10:21: Urine Color YELLOW, Urine Appearance CLEAR, Urine pH 7.0, Urine Specific [place] 1.005, Urine Protein 2+H, Urine Glucose (UA) 1+H, Urine Ketones NEGATIVE, Urine Blood NEGATIVE, Urine Nitrite NEGATIVE, Urine Bilirubin NEGATIVE, Urine Urobilinogen 0.2, Urine Leukocyte Esterase NEGATIVE, Urine WBC (Auto) 1, Urine RBC (Auto) 1, Urine Hyaline Casts (Auto) 0, Urine Bacteria (Auto) NEGATIVE, Urine Squamous Epithelial Cells 0, Urine Sperm (Auto) , Blood Gas Bicarbonate Standard 29.0, Venous Blood pH 7.344, Venous Blood Partial Pressure CO2 60.8H, Venous Blood Partial Pressure O2 141.6H, Venous Blood Total Carbon Dioxide 34.2H, Venous Blood HCO3 32.4H, Venous Blood Oxygen Saturation 98.8H, Venous Blood Base Excess 5.0H, Anion Gap 4L, Glomerular Filtration Rate 28.2L, Calcium Level 9.5, Total Bilirubin 1.0, Direct Bilirubin 0.2, Aspartate Amino Transf (AST/SGOT) 7, Alanine Aminotransferase (ALT/SGPT) 18, Alkaline Phosphatase 135H, Total Creatine Kinase 26L, Creatine Kinase MB < 1.0, Creatine Kinase MB Relative Index 3.85, Troponin I < 0.02, Total Protein 7.0, Albumin 3.4, Albumin/Globulin Ratio 0.94L, Lipase 46L 12/22/19 11:52: OG-Aoq-I-Type Natriuretic Peptide 255H, [place] Level 0.63 CBC/BMP Laboratory Tests 12/22/19 10:12 12/22/19 10:21 Microbiology Microbiology 12/22/19 Respiratory Virus Panel (PCR) (CAROL) - Final, Complete 12/22/19 Blood Culture, Received Pending 12/22/19 Blood Culture, Received Pending Home Medications Scheduled Apixaban (Eliquis) 2.5 Mg Tab, 2.5 MG PO BID Atorvastatin Calcium (Atorvastatin Calcium) 10 Mg Tablet, 10 MG PO DAILY Azelastine HCl (Azelastine HCl) 0.1 % Spr, 1 SPRAY NA BID Benztropine Mesylate (Benztropine Mesylate) 1 Mg Tab, 1 MG PO BID Calcitriol (Rocaltrol) 0.25 Mcg Cap, 0.25 MCG PO 5XW SATURDAY-SATURDAY Carvedilol (Carvedilol) 6.25 Mg Tab, 6.25 MG PO BID Clonazepam (Clonazepam) 1 Mg Tab, 1 MG PO TID 0800/1600/QHS Docusate Sodium (Colace) 100 Mg Capsule, 200 MG PO BID Ferrous Gluconate (Ferrous Gluconate) 324 Mg Tab, 324 MG PO DAILY Finasteride (Finasteride) 5 Mg Tablet, 5 MG PO QHS Fluticasone Propionate (Flonase Allergy Relief) 9.9 Ml [place].susp, 2 SPRAY NARES QHS Haloperidol (Haloperidol) 5 Mg Tablet, 2.5 MG PO BID Hydroxyzine HCl (Hydroxyzine HCl) 25 Mg Tablet, 25 MG PO TID Lamotrigine (Lamictal) 200 Mg Tablet, 200 MG PO BID [place] Carbonate ([place] Carbonate) 150 Mg Cap, 150 MG PO BID Multivitamins (Thera M Plus Tablet) 1 Tab Tab, 1 TAB PO QHS Nystatin (Nystatin Powder) 100,000 Unit/Gm Pow, 1 DOSE TOP BID APPLY BETWEEN TOES Olanzapine (Zyprexa) 5 Mg Tab, 5 MG PO TID AM/NOON/1600 Olanzapine (Olanzapine) 5 Mg Tablet, 10 MG PO QHS Omeprazole (Omeprazole) 40 Mg Cap, 40 MG PO DAILY Allergies Coded Allergies: NSAIDS (Non-Steroidal Anti-Inflamma (Verified Adverse Reaction, Intermediate, GERD , LIVER ISSUES, 02/18/19) A-FIB/CHADSVASC A-FIB History Current/History of A-Fib/PAF?: No Current PO Anticoag Therapy: Yes Age/Risk Factor Scoring CHADSVASC: CHADSVASC Response (Comments) Value Age Risk Factor Age < 65 years old 0 Gender Risk Factor Male 0 Hx of CHF No 0 Hx of HTN Yes 1 Hx of Stroke/TIA/or VTE No 0 Hx of Diabetes Yes 1 Hx of Vascular Disease No 0 Total 2 Treatment Treatment ordered: Apixaban Kristal Garcia MD December 22, 2019 15:09
[2019-12-22] MEDS: hydrOXYzine 25 MG TAB PO SCH ×3 (17:01→21:35)
[2019-12-22] MEDS: OLANZapine 5 MG TAB PO SCH (17:03)
[2019-12-22 20:00] VITALS: BP 101/61
[2019-12-22] MEDS ORDERED: CARVedilol 6.25 MG TAB PO SCH (21:00)
[2019-12-22] MEDS: NYSTATIN 100,000 UNITS/GM TOPICAL PWD 15 GM TOP SCH (21:00)
[2019-12-22] MEDS: AZELASTINE 137MCG NASAL SPY 30 ML (ASTELIN) SCH (21:00)
[2019-12-22] MEDS: FLUTICASONE PROP 0.05% NASAL SPRAY 16 GM (FLONASE) NARES SCH (21:00)
[2019-12-22] MEDS: LITHIUM CARBONATE 150 MG CAP PO SCH ×2 (21:18→21:35)
[2019-12-22] MEDS: haloperidoL 5 MG TAB PO SCH ×2 (21:18→21:35)
[2019-12-22] MEDS: DOCUSATE SODIUM 100 MG CAP PO SCH ×2 (21:19→21:35)
[2019-12-22] MEDS: FINASTERIDE 5 MG TAB PO SCH ×2 (21:19→21:35)
[2019-12-22] MEDS: BENZTROPINE 1 MG TAB PO SCH ×2 (21:19→21:35)
[2019-12-22] MEDS: MULTIVITAMINS/MINERALS THERAP 1 TAB PO SCH ×2 (21:19→21:35)
[2019-12-22] MEDS: OLANZapine 10 MG TAB PO SCH ×2 (21:20→21:35)
[2019-12-22] MEDS: APIXABAN 2.5 MG TAB (ELIQUIS) PO SCH ×2 (21:20→21:35)
[2019-12-22] MEDS: lamoTRIgine 100MG TAB PO SCH ×2 (21:20→21:35)
[2019-12-23] MEDS ORDERED: CEFTAROLINE FOSAMIL 600 MG in D5W MINI-BAG PLUS 50 ML IV SCH ×2
[2019-12-23] MEDS: CEFTAROLINE FOSAMIL 400 MG in D5W MINI-BAG PLUS 50 ML IV SCH ×2 (00:05→13:07)
[2019-12-23 04:00] VITALS: BP 125/85
[2019-12-23 05:51] LABS: BASO % 0.2 % (0.0-1.0); EOS # 0.1 10^3/uL (0.0-0.5); EOS % 1.5 % (0.0-3.0); HEMATOCRIT 35.1 % (42.0-52.0); HEMOGLOBIN 10.8 g/dl (13.5-17.5); LYMPH # 0.8 10^3/uL (1.5-5.0); LYMPH % 8.6 % (24.0-44.0); MEAN CORPUSCULAR HEMOGLOBIN 30.3 pg (27.0-33.0); MEAN CORPUSCULAR HGB CONC 30.8 g/dl (32.0-36.5); MEAN CORPUSCULAR VOLUME 98.6 fl (80.0-96.0); MONO # 0.8 10^3/uL (0.0-0.8); MONO % 8.4 % (0.0-5.0); NEUTROPHILS # 7.6 10^3/uL (1.5-8.5); NEUTROPHILS % 80.9 % (36.0-66.0); PLATELET COUNT, AUTOMATED 143 10^3/uL (150-450); RED BLOOD COUNT 3.56 10^6/uL (4.30-6.10); WHITE BLOOD COUNT 9.3 10^3/uL (4.0-10.0)
[2019-12-23] MEDS: NS 1,000 ML IV SCH ×3 (06:09→23:12)
[2019-12-23 06:21] LABS: ALBUMIN 2.8 GM/DL (3.2-5.2); ALT/SGPT 19 U/L (12-78); BILIRUBIN,TOTAL 0.4 MG/DL (0.2-1.0); BLOOD UREA NITROGEN 34 MG/DL (7-18); CALCIUM LEVEL 8.6 MG/DL (8.8-10.2); CARBON DIOXIDE LEVEL 37 MEQ/L (21-32); CHLORIDE LEVEL 105 MEQ/L (98-107); CREATININE FOR GFR 2.69 MG/DL (0.70-1.30); GLOMERULAR FILTRATION RATE 25.6 (>49); GLUCOSE, FASTING 143 MG/DL (70-100); POTASSIUM SERUM 4.7 MEQ/L (3.5-5.1); SODIUM LEVEL 141 MEQ/L (136-145); TOTAL PROTEIN 6.4 GM/DL (6.4-8.2)
[2019-12-23 08:00] VITALS: BP 142/88
[2019-12-23] MEDS: clonazePAM 1 MG TAB PO SCH ×3 (08:32→23:17)
[2019-12-23] MEDS: OMEPRAZOLE 20 MG CAP PO SCH (08:33)
[2019-12-23] MEDS: FERROUS GLUCONATE 324 MG TAB PO SCH (08:34)
[2019-12-23] MEDS: DOCUSATE SODIUM 100 MG CAP PO SCH ×2 (08:34→23:17)
[2019-12-23] MEDS: APIXABAN 2.5 MG TAB (ELIQUIS) PO SCH ×2 (08:35→23:16)
[2019-12-23] MEDS: haloperidoL 5 MG TAB PO SCH ×2 (08:35→23:18)
[2019-12-23] MEDS: LITHIUM CARBONATE 150 MG CAP PO SCH ×2 (08:35→23:18)
[2019-12-23] MEDS: BENZTROPINE 1 MG TAB PO SCH ×2 (08:35→23:20)
[2019-12-23] MEDS: lamoTRIgine 100MG TAB PO SCH ×2 (08:35→23:16)
[2019-12-23] MEDS: ATORVASTATIN 10 MG TAB PO SCH (08:36)
[2019-12-23] MEDS: hydrOXYzine 25 MG TAB PO SCH ×3 (08:37→23:18)
--- NOTE | 2019-12-23 08:55 | ECGEPIP ---
[facility] - ED Test Date: 2019-12-22 Pat Name: EVELYN ORDOÑEZ Department: Room: [place] [address] Gender: Male Tire Specialist: doron : [id number] Requested By: ASHLEY Florez Order Number: [id number] Reading MD: Nemo Mccauley Measurements Intervals [place] Rate: 125 P: 16 NH: 199 QRS: -60 QRSD: 84 T: 18 QT: 283 QTc: 409 Interpretive Statements SINUS TACHYCARDIA POSSIBLE ANTERIOR MYOCARDIAL INFARCTION, OF INDETERMINATE AGE INFERIOR MYOCARDIAL INFARCTION, PROBABLY OLD SIMILAR 10/27/19 Electronically Signed on 12-23-2019 8:55:40 EDT by Nemo Mccauley
[2019-12-23] MEDS: AZELASTINE 137MCG NASAL SPY 30 ML (ASTELIN) SCH ×2 (09:00→23:20)
[2019-12-23] MEDS: NYSTATIN 100,000 UNITS/GM TOPICAL PWD 15 GM TOP SCH ×2 (09:00→23:20)
[2019-12-23] MEDS: OLANZapine 5 MG TAB PO SCH ×3 (09:46→16:41)
[2019-12-23] MEDS: OLANZapine 10 MG TAB PO SCH ×2 (13:06→23:17)
[2019-12-23 16:00] VITALS: BP 161/95
--- NOTE | 2019-12-23 19:14 | IPNPDOC ---
Date Seen The patient was seen on 12/23/19. Progress Note SUBJECTIVE: Improved HR, WBC wnl, afebrile. Remains on 2 L NC but will try to wean off today. Cr 2.69. Sleepy this AM; however, according to staff at bedside from home this is normal for patient. Transferring to med/surg with tele. OBJECTIVE: VITAL SIGNS: Please see below PHYSICAL EXAMINATION: CONSTITUTIONAL: No acute distress,resting in bed EYES: PERRLA, EOM intact HENT, MOUTH: Normocephalic, atraumatic,dry mucous membranes, NECK: SUPPLE, no JVD, no lymphadenopathy, no carotid bruit CV: tachycardic, Regular rhythm, S1S2 normal, no murmurs/rubs/gallops RESPIRATORY: Clear to auscultation bilaterally, no rales/rhonchi/wheezes GI: Distended abdomen, nontender. BS positive in 4 quadrants, soft, no rebound or guarding, no organomegaly : Deferred MUSCULOSKELETAL: Normal ROM. No cyanosis, clubbing, swelling, joint deformity. INTEGUMENTARY: Multiple small scabbed areas on the RLE, no open sores. Warm, erythematous and slightly tender to touch below the right knee. Areas of re dness/rash above the right knee/on right thigh appears cellulitic- slightly more red today, area outlined in marker. +1 edema, nonpitting below right knee. LLE no redness. NEUROLOGIC: Cranial Nerves II-XII are intact, no focal deficits LABORATORY DATA: Please see below IMAGING: No new imaging. ASSESSMENT: 64-year-old male with history of recurrent right lower from the cellulitis admitted under inpatient status for worsening right lower extremity cellulitis, resolved sepsis. PLAN: 1. Recurrent right lower extremity cellulitis, resolved sepsis. WBC wnl, afebrile, lactic acid normal. C/w IVFs, Ceftaroline (Day 2), tylenol PRN, daily labs. 2. HTN. BP slightly high today, decreased IVFs. Consider dose of lasix, started BB again with holding parameters. 3. Atypical chest pain- resolved. Troponin neg x3, no events overnight on tele. Resume home medications. 4. CKD Stage III. Cr slightly increased with IVFs. BL Cr appears to be 1.9-2.5. F/u daily labs. 5. Iron deficiency anemia. Stable. C/w iron supplement. F/u CBC daily. 6. Hx of DVT. New doppler RLE neg. C/w anticoagulation. 7. HLD. C/w statin. 8. Mental disability/schizoaffective disorder/anxiety/ behavioral issues with aggression. Currently stable. Patient has paper sales representative with him at bedside from his facility. C/w all home medications. 9. Hx of seizure. No seizure-like activity. C/w home medications. 10. GERD. C/w PPI. 11. BPH. C/w finasteride. 12. DM type II. Not on home medications. Start on ISS, consistent carb diet, AC/HS blood sugar checks. 13. DVT px. Eliquis BID. DISPOSITION: Currently under inpatient status. Plan is for patient to return to prior living situation on discharge when medically cleared. PT/OT ordered. VS, I&O, 24H, Fishbone Vital Signs/I&O Vital Signs Date Time Temp Pulse Resp B/P (MAP) Pulse Ox O2 Delivery O2 Flow Rate FiO2 12/23/19 16:00 99.5 106 20 161/95 (117) 94 12/23/19 12:00 2.0 12/23/19 04:00 Nasal Cannula I&O- Last 24 Hours up to 6 AM 12/23/19 06:00 Intake Total 2350 ml Output Total 300 ml Balance 2050 ml Laboratory Data 24H LABS Laboratory Tests 2 12/22/19 21:11: Lactic Acid Level 0.8, Troponin I < 0.02 12/22/19 21:18: Bedside Glucose (Misc Panel) 246H 12/23/19 04:54: Lactic Acid Level 0.6, Immature Granulocyte % (Auto) 0.4, Neutrophils (%) (Auto) 80.9H, Lymphocytes (%) (Auto) 8.6L, Monocytes (%) (Auto) 8.4H, Eosinophils (%) (Auto) 1.5, Basophils (%) (Auto) 0.2, Neutrophils # (Auto) 7.6, Lymphocytes # (Auto) 0.8L, Monocytes # (Auto) 0.8, Eosinophils # (Auto) 0.1, Basophils # (Auto) 0.0, Nucleated Red Blood Cells % (auto) 0.0, Anion Gap , Glomerular Filtration Rate 25.6L, Calcium Level 8.6L, Total Bilirubin 0.4#, Aspartate Amino Transf (AST/SGOT) 11, Alanine Aminotransferase (ALT/SGPT) 19, Alkaline Phosphatase 119H, Total Protein 6.4, Albumin 2.8L, Albumin/Globulin Ratio 0.78L 12/23/19 13:14: Bedside Glucose (Misc Panel) 171H 12/23/19 18:22: Bedside Glucose (Misc Panel) 162H CBC/BMP Laboratory Tests 12/23/19 04:54 Microbiology Microbiology 12/22/19 Respiratory Virus Panel (PCR) (CAROL) - Final, Complete 12/22/19 Blood Culture - Preliminary, Resulted No growth after 24 hours . All specim... 12/22/19 Blood Culture - Preliminary, Resulted No growth after 24 hours . All specim... Current Medications Current Medications Medications (Trade) Dose Ordered Sig/Grant Route PRN Reason Start Time Stop Time Status Last Admin Dose Admin Acetaminophen (Tylenol Tab) 650 mg Q4H PRN PO PAIN OR FEVER 12/22/19 13:45 Apixaban (Eliquis) 2.5 mg BID PO 12/22/19 21:00 12/23/19 08:35 Atorvastatin Calcium (Lipitor) 10 mg DAILY PO 12/23/19 09:00 12/23/19 08:36 Azelastine HCl (Astelin) 1 spray BID NA 12/22/19 21:00 Benztropine Mesylate (Cogentin) 1 mg BID PO 12/22/19 21:00 12/23/19 08:35 Carvedilol (COReg) 6.25 mg BID PO 12/22/19 21:00 12/22/19 14:59 DC Ceftaroline Fosamil 400 mg/ Dextrose 50 ml @ 50 mls/hr Q12H IV 12/23/19 00:00 12/23/19 13:07 Ceftaroline Fosamil 600 mg/ Dextrose 50 ml @ 50 mls/hr Q12H IV 12/23/19 00:00 12/22/19 14:25 DC Clonazepam (KlonoPIN) 1 mg TID PO 12/22/19 16:00 12/23/19 16:36 Docusate Sodium (Colace) 200 mg BID PO 12/22/19 21:00 12/23/19 08:34 Ferrous Gluconate (Fergon) 324 mg DAILY PO 12/23/19 09:00 12/23/19 08:34 Finasteride (Proscar) 5 mg QHS PO 12/22/19 21:00 12/22/19 21:35 Fluticasone Propionate (Flonase 0.05% Nasal [place]) 2 spray QHS NARES 12/22/19 21:00 Haloperidol (Haldol) 2.5 mg BID PO 12/22/19 21:00 12/23/19 08:35 Home Med (Med Rec Complete!) ASDIRECTED XX 12/22/19 13:30 12/22/19 13:23 DC Hydroxyzine HCl (Atarax) 25 mg TID PO 12/22/19 16:00 12/23/19 16:37 Lamotrigine (LaMICtal) 200 mg BID PO 12/22/19 21:00 12/23/19 08:35 Utopia Carbonate (Utopia Carbonate) 150 mg BID PO 12/22/19 21:00 12/23/19 08:35 Multivitamins (Theragram-M) 1 tab QHS PO 12/22/19 21:00 12/22/19 21:35 Nystatin (Mycostatin Powder, Nystop) 1 dose BID TOP 12/22/19 21:00 Olanzapine (ZyPREXA) 5 mg TID@0800,1200,1600 PO 12/22/19 16:00 12/23/19 16:41 Olanzapine (ZyPREXA) 10 mg QHS PO 12/22/19 21:00 12/23/19 13:06 Omeprazole (PriLOSEC) 40 mg DAILY PO 12/23/19 09:00 12/23/19 08:33 Sodium Chloride 1,000 ml @ 125 mls/hr Q8H IV 12/22/19 13:45 12/23/19 15:44 Sodium Chloride 1,000 ml @ 150 mls/hr Q6H40M IV 12/22/19 11:30 12/22/19 14:04 DC 12/22/19 11:54 Allergies Coded Allergies: NSAIDS (Non-Steroidal Anti-Inflamma (Verified Adverse Reaction, Intermediate, GERD , LIVER ISSUES, 02/18/19) Kristal Garcia MD December 23, 2019 19:14
[2019-12-23 20:00] VITALS: BP 136/72
[2019-12-23] MEDS: MULTIVITAMINS/MINERALS THERAP 1 TAB PO SCH (23:16)
[2019-12-23] MEDS: FINASTERIDE 5 MG TAB PO SCH (23:17)
[2019-12-23] MEDS: CARVedilol 6.25 MG TAB PO SCH (23:19)
[2019-12-23] MEDS: FLUTICASONE PROP 0.05% NASAL SPRAY 16 GM (FLONASE) NARES SCH (23:21)
[2019-12-24 04:00] VITALS: BP 138/76
[2019-12-24 06:00] LABS: BASO % 0.3 % (0.0-1.0); EOS # 0.2 10^3/uL (0.0-0.5); HEMOGLOBIN 10.8 g/dl (13.5-17.5); LYMPH # 0.8 10^3/uL (1.5-5.0); MEAN CORPUSCULAR HEMOGLOBIN 29.8 pg (27.0-33.0); MEAN CORPUSCULAR VOLUME 99.2 fl (80.0-96.0); MONO # 0.7 10^3/uL (0.0-0.8); MONO % 8.5 % (0.0-5.0); NEUTROPHILS % 77.5 % (36.0-66.0); PLATELET COUNT, AUTOMATED 148 10^3/uL (150-450); RED BLOOD COUNT 3.63 10^6/uL (4.30-6.10); WHITE BLOOD COUNT 7.7 10^3/uL (4.0-10.0)
[2019-12-24 06:34] LABS: ALBUMIN 2.9 GM/DL (3.2-5.2); BILIRUBIN,TOTAL 0.4 MG/DL (0.2-1.0); CREATININE FOR GFR 2.52 MG/DL (0.70-1.30); GLOMERULAR FILTRATION RATE 27.7 (>49); POTASSIUM SERUM 4.7 MEQ/L (3.5-5.1); TOTAL PROTEIN 6.2 GM/DL (6.4-8.2)
[2019-12-24] MEDS: NYSTATIN 100,000 UNITS/GM TOPICAL PWD 15 GM TOP SCH ×2 (09:00→21:00)
[2019-12-24] MEDS: APIXABAN 2.5 MG TAB (ELIQUIS) PO SCH ×2 (09:44→21:00)
[2019-12-24] MEDS: clonazePAM 1 MG TAB PO SCH ×3 (09:44→21:00)
[2019-12-24] MEDS: haloperidoL 5 MG TAB PO SCH ×2 (09:44→21:00)
[2019-12-24] MEDS: OLANZapine 5 MG TAB PO SCH ×3 (09:44→16:31)
[2019-12-24] MEDS: lamoTRIgine 100MG TAB PO SCH ×2 (09:44→21:00)
[2019-12-24] MEDS: LITHIUM CARBONATE 150 MG CAP PO SCH ×2 (09:45→21:00)
[2019-12-24] MEDS: CARVedilol 6.25 MG TAB PO SCH ×2 (09:45→21:00)
[2019-12-24] MEDS: DOCUSATE SODIUM 100 MG CAP PO SCH ×2 (09:45→21:00)
[2019-12-24] MEDS: OMEPRAZOLE 20 MG CAP PO SCH (09:45)
[2019-12-24] MEDS: AZELASTINE 137MCG NASAL SPY 30 ML (ASTELIN) SCH ×2 (09:46→21:00)
[2019-12-24] MEDS: FERROUS GLUCONATE 324 MG TAB PO SCH (09:46)
[2019-12-24] MEDS: ATORVASTATIN 10 MG TAB PO SCH (09:46)
[2019-12-24] MEDS: hydrOXYzine 25 MG TAB PO SCH ×3 (09:46→21:00)
[2019-12-24] MEDS: BENZTROPINE 1 MG TAB PO SCH ×2 (09:50→21:00)
[2019-12-24 12:15] VITALS: BP 140/87
[2019-12-24] MEDS ORDERED: HALOPERIDOL 5MG/ML VIAL (J1630 PER 1) IM ONE (12:30)
--- NOTE | 2019-12-24 13:15 | IPNPDOC ---
Date Seen The patient was seen on 12/24/19. Progress Note SUBJECTIVE: Agitated this a.m., nurses could not get IV due to poor venous access and agitation combined. The patient became combative with nursing staff around 12:30 this afternoon and he was needing to be given 1 mg of IM Haldol. Infectious disease was called to discuss case, awaiting return call. WBC within normal limits, remains afebrile with improving cellulitis. OBJECTIVE: VITAL SIGNS: Please see below PHYSICAL EXAMINATION: CONSTITUTIONAL: Agitated, mumbling-according to bedside sitter, this can be baseline for patient. EYES: PERRLA, EOM intact HENT, MOUTH: Normocephalic, atraumatic,dry mucous membranes, NECK: SUPPLE, no JVD, no lymphadenopathy, no carotid bruit CV: tachycardic, Regular rhythm, S1S2 normal, no murmurs/rubs/gallops RESPIRATORY: Clear to auscultation bilaterally, no rales/rhonchi/wheezes GI: nontender. BS positive in 4 quadrants, soft, no rebound or guarding, no organomegaly : Deferred MUSCULOSKELETAL: Normal ROM. No cyanosis, clubbing, swelling, joint deformity. INTEGUMENTARY: Multiple small scabbed areas on the RLE, no open sores. Warm, erythematous and slightly tender to touch below the right knee. Areas of redness/rash above the right knee/on right thigh appears cellulitic- improved compared to yesterday. nonpitting edema below right knee. LLE no redness. NEUROLOGIC: Cranial Nerves II-XII are intact, no focal deficits LABORATORY DATA: Please see below IMAGING: No new imaging. ASSESSMENT: 64-year-old male with history of recurrent right lower from the cellulitis admitted under inpatient status for worsening right lower extremity cellulitis, resolved sepsis. PLAN: 1. Recurrent right lower extremity cellulitis, resolved sepsis. WBC wnl, afebrile. Appears to be improving. D/twila IVF, Ceftaroline (Day 3), tylenol PRN, daily labs. Poor access, nurses will attempt again after haldol administration. 2. Increased agitation, aggression. Hx of mental disability/schizoaffective disorder/anxiety/ behavioral issues with aggression. S/p 1 mg IM haldol in addition, f/u ECG. Patient has c s s representative with him at bedside from his facility. C/w all home medications. 3. HTN. BP slightly high still, stopped IVF. C/w BB again with holding parameters. 4. CKD Stage III. Cr 2.5, near baseline. F/u daily labs. 5. Iron deficiency anemia. Stable. C/w iron supplement. F/u CBC daily. 6. Hx of DVT. New doppler RLE neg. C/w anticoagulation. 7. HLD. C/w statin. 8. Hx of seizure. No seizure-like activity. C/w home medications. 9. GERD. C/w PPI. 10. BPH. C/w finasteride. 11. DM type II. Not on home medications. Start on ISS, consistent carb diet, AC/HS blood sugar checks. 12. DVT px. Eliquis BID. DISPOSITION: Currently under inpatient status. Plan is for patient to return to prior living situation on discharge when medically cleared. PT/OT ordered. VS, I&O, 24H, Fishbone Vital Signs/I&O Vital Signs Date Time Temp Pulse Resp B/P (MAP) Pulse Ox O2 Delivery O2 Flow Rate FiO2 12/24/19 09:45 114 138/76 12/24/19 04:00 99.6 18 90 Room Air 12/23/19 12:00 2.0 I&O- Last 24 Hours up to 6 AM 12/24/19 06:00 Intake Total 1440 ml Output Total 1600 ml Balance -160 ml Laboratory Data 24H LABS Laboratory Tests 2 12/23/19 13:14: Bedside Glucose (Misc Panel) 171H 12/23/19 18:22: Bedside Glucose (Misc Panel) 162H 12/23/19 23:17: Bedside Glucose (Misc Panel) 142H 12/24/19 05:43: Immature Granulocyte % (Auto) 0.7, Neutrophils (%) (Auto) 77.5H, Lymphocytes (%) (Auto) 11.0L, Monocytes (%) (Auto) 8.5H, Eosinophils (%) (Auto) 2.0, Basophils (%) (Auto) 0.3, Neutrophils # (Auto) 6.0, Lymphocytes # (Auto) 0.8L, Monocytes # (Auto) 0.7, Eosinophils # (Auto) 0.2, Basophils # (Auto) 0.0, Nucleated Red Blood Cells % (auto) 0.0, Anion Gap 1L, Glomerular Filtration Rate 27.7L, Calcium Level 9.0, Total Bilirubin 0.4, Aspartate Amino Transf (AST/SGOT) 10, Alanine Aminotransferase (ALT/SGPT) 32, Alkaline Phosphatase 123H, Total Protein 6.2L, Albumin 2.9L, Albumin/Globulin Ratio 0.88L CBC/BMP Laboratory Tests 12/24/19 05:43 Microbiology Microbiology 12/22/19 Respiratory Virus Panel (PCR) (CAROL) - Final, Complete 12/22/19 Blood Culture - Preliminary, Resulted No Growth after 48 hours. All Specime... 12/22/19 Blood Culture - Preliminary, Resulted No Growth after 48 hours. All Specime... Current Medications Current Medications Medications (Trade) Dose Ordered Sig/Grant Route PRN Reason Start Time Stop Time Status Last Admin Dose Admin Acetaminophen (Tylenol Tab) 650 mg Q4H PRN PO PAIN OR FEVER 12/22/19 13:45 Apixaban (Eliquis) 2.5 mg BID PO 12/22/19 21:00 12/24/19 09:44 Atorvastatin Calcium (Lipitor) 10 mg DAILY PO 12/23/19 09:00 12/24/19 09:46 Azelastine HCl (Astelin) 1 spray BID NA 12/22/19 21:00 12/24/19 09:46 Benztropine Mesylate (Cogentin) 1 mg BID PO 12/22/19 21:00 12/24/19 09:50 Carvedilol (COReg) 6.25 mg BID PO 12/22/19 21:00 12/22/19 14:59 DC Carvedilol (COReg) 6.25 mg BID PO 12/23/19 21:00 12/24/19 09:45 Ceftaroline Fosamil 400 mg/ Dextrose 50 ml @ 50 mls/hr Q12H IV 12/23/19 00:00 12/23/19 13:07 Ceftaroline Fosamil 600 mg/ Dextrose 50 ml @ 50 mls/hr Q12H IV 12/23/19 00:00 12/22/19 14:25 DC Clonazepam (KlonoPIN) 1 mg TID PO 12/22/19 16:00 12/24/19 09:44 Docusate Sodium (Colace) 200 mg BID PO 12/22/19 21:00 12/24/19 09:45 Ferrous Gluconate (Fergon) 324 mg DAILY PO 12/23/19 09:00 12/24/19 09:46 Finasteride (Proscar) 5 mg QHS PO 12/22/19 21:00 12/23/19 23:17 Fluticasone Propionate (Flonase 0.05% Nasal [place]) 2 spray QHS NARES 12/22/19 21:00 Haloperidol (Haldol) 2.5 mg BID PO 12/22/19 21:00 12/24/19 09:44 Home Med (Med Rec Complete!) ASDIRECTED XX 12/22/19 13:30 12/22/19 13:23 DC Hydroxyzine HCl (Atarax) 25 mg TID PO 12/22/19 16:00 12/24/19 09:46 Lamotrigine (LaMICtal) 200 mg BID PO 12/22/19 21:00 12/24/19 09:44 Mildred Carbonate (Mildred Carbonate) 150 mg BID PO 12/22/19 21:00 12/24/19 09:45 Multivitamins (Theragram-M) 1 tab QHS PO 12/22/19 21:00 12/23/19 23:16 Nystatin (Mycostatin Powder, Nystop) 1 dose BID TOP 12/22/19 21:00 Olanzapine (ZyPREXA) 5 mg TID@0800,1200,1600 PO 12/22/19 16:00 12/24/19 09:44 Olanzapine (ZyPREXA) 10 mg QHS PO 12/22/19 21:00 12/23/19 23:17 Omeprazole (PriLOSEC) 40 mg DAILY PO 12/23/19 09:00 12/24/19 09:45 Sodium Chloride 1,000 ml @ 80 mls/hr [id number] IV 12/22/19 13:45 12/24/19 08:29 DC 12/23/19 15:44 Sodium Chloride 1,000 ml @ 150 mls/hr Q6H40M IV 12/22/19 11:30 12/22/19 14:04 DC 12/22/19 11:54 Allergies Coded Allergies: NSAIDS (Non-Steroidal Anti-Inflamma (Verified Adverse Reaction, Intermediate, GERD , LIVER ISSUES, 02/18/19) Kristal Garcia MD December 24, 2019 13:15
[2019-12-24 13:51] LABS: VENOUS BASE EXCESS 3.5 (-2.0-2.0); VENOUS HCO3 32.4 MEQ/L (23.0-27.0); VENOUS O2 SATURATION 87.6 % (60.0-80.0); VENOUS PH 7.253 UNITS (7.330-7.430); VENOUS STANDARD HCO3 27.4 MEQ/L; VENOUS TOTAL CO2 34.7 MEQ/L (24.0-28.0)
[2019-12-24] MEDS: CEFTAROLINE FOSAMIL 400 MG in D5W MINI-BAG PLUS 50 ML IV SCH ×4 (14:11→23:57)
[2019-12-24 16:00] VITALS: BP 118/71
[2019-12-24 16:40] LABS: ABG BASE EXCESS 3.8 (-2.0-2.0); ABG HCO3 32.8 MEQ/L (22.0-26.0); ABG O2 SATURATION 97.1 % (95.0-99.0); ABG STANDARD HCO3 27.9 MEQ/L (22.0-26.0); ABG TOTAL CO2 35.2 MEQ/L (23.0-31.0)
[2019-12-24 16:43] LABS: ABG PARTIAL PRESSURE CO2 76.9 mmHg (35.0-45.0); ABG pH (ARTERIAL) 7.248 UNITS (7.350-7.450)
[2019-12-24] MEDS ORDERED: ALBUTEROL SULFATE 2.5 MG/0.5 ML INH NEB SOLN NEB PRN (17:15)
[2019-12-24] MEDS ORDERED: FUROSEMIDE 40MG/4ML VIAL (J1940) IV ONE (17:30)
[2019-12-24] MEDS ORDERED: GLUCAGON INJ 1MG VIAL SC PRN (17:45)
[2019-12-24] MEDS ORDERED: DEXTROSE 50% 50 ML SYRINGE IV PRN (17:45)
[2019-12-24] MEDS ORDERED: GLUCOSE 4GM CHEW TABLET PO PRN (17:45)
--- NOTE | 2019-12-24 18:04 | REP ---
Clinical: Hypoxia. Comparison: 12/22/2019. Findings: Mediastinum and cardiac silhouette are stable with mild cardiomegaly again suggested. Lung alexandre demonstrate chronic changes without focal consolidation, effusion, or pneumothorax. Skeletal structures are intact. Impression: No focal consolidation or effusion. Stable cardiomegaly. Electronically Signed by Alan Salinas MD 12/24/2019 05:56 P
[2019-12-24 18:43] LABS: CHOLESTEROL RISK RATIO 5.5 (<5)
[2019-12-24 19:33] LABS: HEMOGLOBIN A1c 7.6 %
[2019-12-24] MEDS: OLANZapine 10 MG TAB PO SCH (19:56)
[2019-12-24 20:00] VITALS: BP 137/80
[2019-12-24] MEDS: IPRATROPIUM 0.5MG/ALBUTEROL 2.5MG INH SOL UD 3ML (DUONEB)(J7620) NEB SCH (20:00)
[2019-12-24] MEDS: MULTIVITAMINS/MINERALS THERAP 1 TAB PO SCH (21:00)
[2019-12-24] MEDS ORDERED: HumaLOG INSULIN (NovoLOG) PER UNIT SC SCH (21:00)
[2019-12-24] MEDS: FLUTICASONE PROP 0.05% NASAL SPRAY 16 GM (FLONASE) NARES SCH (21:00)
--- NOTE | 2019-12-24 21:18 | ECGEPIP ---
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
[2019-12-24 22:00] VITALS: BP 110/71
[2019-12-24 22:44] LABS: ABG BASE EXCESS 8.6 (-2.0-2.0); ABG HCO3 35.8 MEQ/L (22.0-26.0); ABG O2 SATURATION 99.1 % (95.0-99.0); ABG PARTIAL PRESSURE O2 194.2 mmHg (75.0-100.0); ABG STANDARD HCO3 32.5 MEQ/L (22.0-26.0); ABG TOTAL CO2 37.8 MEQ/L (23.0-31.0); ABG pH (ARTERIAL) 7.365 UNITS (7.350-7.450)
[2019-12-24 22:45] LABS: ABG PARTIAL PRESSURE CO2 64.1 mmHg (35.0-45.0)
[2019-12-25] VITALS (17 sets, daily range): BP systolic 84–128; BP diastolic 56–83; O2SAT 95–97
[2019-12-25] MEDS: IPRATROPIUM 0.5MG/ALBUTEROL 2.5MG INH SOL UD 3ML (DUONEB)(J7620) NEB SCH ×7 (00:31→23:27)
[2019-12-25] MEDS: DOCUSATE SODIUM 100 MG CAP PO SCH ×2 (02:13→20:06)
[2019-12-25] MEDS: FINASTERIDE 5 MG TAB PO SCH ×2 (02:14→20:05)
[2019-12-25 04:33] LABS: BASO % 0.2 % (0.0-1.0); EOS # 0.3 10^3/uL (0.0-0.5); EOS % 5.4 % (0.0-3.0); HEMATOCRIT 38.4 % (42.0-52.0); HEMOGLOBIN 11.3 g/dl (13.5-17.5); LYMPH # 0.7 10^3/uL (1.5-5.0); MEAN CORPUSCULAR HGB CONC 29.4 g/dl (32.0-36.5); MEAN CORPUSCULAR VOLUME 98.7 fl (80.0-96.0); MONO # 0.6 10^3/uL (0.0-0.8); MONO % 9.7 % (0.0-5.0); NEUTROPHILS # 4.2 10^3/uL (1.5-8.5); NEUTROPHILS % 72.4 % (36.0-66.0); PLATELET COUNT, AUTOMATED 146 10^3/uL (150-450); RED BLOOD COUNT 3.89 10^6/uL (4.30-6.10); WHITE BLOOD COUNT 5.8 10^3/uL (4.0-10.0)
[2019-12-25 05:02] LABS: ALBUMIN 3.2 GM/DL (3.2-5.2); BILIRUBIN,TOTAL 0.5 MG/DL (0.2-1.0); CALCIUM LEVEL 9.9 MG/DL (8.8-10.2); CREATININE FOR GFR 2.31 MG/DL (0.70-1.30); GLOMERULAR FILTRATION RATE 30.6 (>49); POTASSIUM SERUM 4.8 MEQ/L (3.5-5.1); TOTAL PROTEIN 6.6 GM/DL (6.4-8.2)
[2019-12-25] MEDS ORDERED: HumaLOG INSULIN (NovoLOG) PER UNIT SC SCH (07:30)
[2019-12-25] MEDS: OLANZapine 5 MG TAB PO SCH ×4 (08:00→20:06)
[2019-12-25 08:12] LABS: ABG BASE EXCESS 8.2 (-2.0-2.0); ABG HCO3 37.1 MEQ/L (22.0-26.0); ABG O2 SATURATION 96.6 % (95.0-99.0); ABG TOTAL CO2 39.5 MEQ/L (23.0-31.0); ABG pH (ARTERIAL) 7.297 UNITS (7.350-7.450)
[2019-12-25 08:18] LABS: ABG PARTIAL PRESSURE CO2 77.6 mmHg (35.0-45.0)
[2019-12-25] MEDS: clonazePAM 1 MG TAB PO SCH ×3 (08:28→20:05)
[2019-12-25] MEDS: ATORVASTATIN 10 MG TAB PO SCH (08:28)
[2019-12-25] MEDS: haloperidoL 5 MG TAB PO SCH ×2 (08:28→20:07)
[2019-12-25] MEDS: FERROUS GLUCONATE 324 MG TAB PO SCH (08:28)
[2019-12-25] MEDS: CARVedilol 6.25 MG TAB PO SCH ×2 (08:29→20:07)
[2019-12-25] MEDS ORDERED: ENOXAPARIN 100MG/1ML SYRINGE (J1650 PER 10MG) SC SCH (09:00)
[2019-12-25] MEDS: hydrOXYzine 25 MG TAB PO SCH ×3 (09:30→20:06)
[2019-12-25] MEDS: LITHIUM CARBONATE 150 MG CAP PO SCH ×2 (09:30→20:07)
[2019-12-25] MEDS: lamoTRIgine 100MG TAB PO SCH ×2 (09:30→20:06)
[2019-12-25] MEDS: AZELASTINE 137MCG NASAL SPY 30 ML (ASTELIN) SCH ×2 (09:31→20:04)
[2019-12-25] MEDS: NYSTATIN 100,000 UNITS/GM TOPICAL PWD 15 GM TOP SCH ×2 (09:31→20:05)
[2019-12-25] MEDS: BENZTROPINE 1 MG TAB PO SCH ×2 (09:33→20:07)
--- NOTE | 2019-12-25 10:56 | CCN ---
DATE OF VISIT: 12/25/2019 ATTENDING PHYSICIAN: REASON FOR CONSULTATION: Respiratory acidosis. Mr. Gerard is a 64-year-old gentleman who is a resident of [facility]. He has known multiple medical problems, including significant difficulties with mental disability, schizophrenia and seizure disorder. He has difficulties as well with behavioral disorder and aggression. He is admitted with a right lower extremity cellulitis which has been an ongoing problem for him. He has underlying chronic kidney disease as well. Yesterday, he was noted to have mental status changes and suffered a fall. Blood gas done at that point in time showed a pH of 7.25 and pCo2 of 75. This is corroborated with an arterial blood gas with a pH of 7.248, pCO2 of 76.9 and pO2 of 108. He was moved to the intensive care unit and placed on noninvasive support. Repeat blood gas at that time showed a pH of 7.365, pCO2 of 64 and pO2 of 194. Chest x-ray done at that time was poor inspiratory effort, but cannot rule out some vascular congestion. I spoke at length with yesterday and physically attended the patient this morning. At 0800, he was a little bit more sedate. Blood gas done at that time showed a pH of 7.297, pCO2 of 77.6 and a pAO2 of 93.0. On exam, however, with BiPAP mask in place, he is easily arousable. He wants to eat. T-max overnight was 97.9, blood pressures 80s to the 120s systolic, heart rate generally in the 90s and respiratory rate varies from 11 to 20 depending upon whether or not he is being stimulated. Ins and outs midnight to midnight are 2560 mL in with 3445 mL out. On exam, he is sedate, but arousable. Moves all extremities. Pupils react. Sclerae are clear. Trachea is in the midline. Chest is quite clear to both auscultation and percussion, except for some faint crackles at the extreme bases bilaterally. No focal adventitious breath sounds are identified. Cardiac exam is generally regular. Peripheral pulses palpable. Trace edema. Abdomen is soft with active bowel sounds. No convincing organomegaly or masses. Extremities are without cyanosis or clubbing. Neurologically, he is conversant. He does not routinely follow commands, but I am told that this is his baseline. The most pressing problems requiring my presence at the bedside: 1. Acute on chronic respiratory failure, both hypoxemic and hypercapnic. 2. Cellulitis. 3. Seizure disorder. 4. Mental disability. 5. Mental illness. I had a very lengthy discussion with who is his attending. At this point, manipulations will be made in the noninvasive support. He certainly is not in extremis and I do not believe he will require intubation. I reviewed his medication list, which has multiple sedating psychiatric meds on it and I believe that is part of the issue. He also has a little bit of a change in his sleep wake cycle and seems to actually do better at night than during the day. For now, I would hold him in an nothing by mouth status until he is able to maintain at least several hours off the BiPAP. He is also being seen by infectious diseases for his cellulitis and I did speak at length with Dr. Ward regarding him this morning as well. They are managing his antimicrobials. His last white blood cell count was down to 5.8. At this point, he is critically ill. My hopes is that we will be able to keep him managed with just noninvasive support. I certainly wonder about concomitant underlying sleep apnea, but at this point, will treat him empirically. At this point, we will continue as outlined above. START TIME: 914 I LEFT THE BEDSIDE AT: 0956 41 minutes of critical care time delivered at the bedside, not including procedures.
[2019-12-25] MEDS: HumaLOG INSULIN (NovoLOG) PER UNIT SC SCH ×2 (12:00→18:00)
[2019-12-25] MEDS: DIMETHICONE 2% OINTMENT(VANIPLY) 70GM TUBE TOP SCH ×2 (12:27→20:04)
[2019-12-25] MEDS: CEFTAROLINE FOSAMIL 400 MG in D5W MINI-BAG PLUS 50 ML IV SCH (12:28)
--- NOTE | 2019-12-25 16:48 | IPNPDOC ---
Date Seen The patient was seen on 12/25/19. Progress Note SUBJECTIVE: Repeat ABG this a.m. showed worsening hypercapnia, at bedside the patient was more obtunded than baseline in the morning. Modifications were made to pressure settings on BiPAP and will recheck ABG 12/26/2019 in the a.m. Pulmonary is consult it to help manage. 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 Our concern with removing them completely would be withdrawal as he has been on many of these medications for a very long time. Infectious disease was consult it on the case and agrees with current treatment. OBJECTIVE: VITAL SIGNS: Please see below PHYSICAL EXAMINATION: CONSTITUTIONAL: lethargic, mumbling at times EYES: PERRLA, EOM intact HENT, MOUTH: Normocephalic, atraumatic,dry mucous membranes, BIPAP mask in place NECK: SUPPLE, no JVD, no lymphadenopathy, no carotid bruit CV: regular rhythm, S1S2 normal, no murmurs/rubs/gallops RESPIRATORY: Clear to auscultation bilaterally, no rales/rhonchi/wheezes GI: nontender. BS positive in 4 quadrants, soft, no rebound or guarding, no organomegaly : Deferred MUSCULOSKELETAL: Normal ROM. No cyanosis, clubbing, swelling, joint deformity. INTEGUMENTARY: Multiple small scabbed areas on the RLE, no open sores. . Areas of cellulitis redness/rash above the right knee/on right thigh improving. Area below knee on right leg improving as well. Nonpitting edema below right knee. LLE no redness. NEUROLOGIC: no focal deficits, CN 2-12 not tested LABORATORY DATA: Please see below IMAGING: CXR 12/24/19: No focal consolidation or effusion. Stable cardiomegaly. ASSESSMENT: 64-year-old male admitted to ICU for acute hypoxic and hypercapnic respiratory failure, right lower extremity cellulitis. PLAN: 1. Acute hypoxic and hypercapnic respiratory failure likely multifactorial to obesity hypoventilation syndrome, possible DANIEL. Cannot rule out medications as factor as well. Decreased many sedating medications, increased pressures on BIPAP machine and will repeat ABG in AM. More awake throughout the day today, will monitor mental status closely. Ensuring HOB raised 45 degrees, avoiding allowing patient to lay in bent position. 2. Right lower extremity cellulitis. WBC wnl, afebrile. Appears to be improving. C/w Ceftaroline (Day 4), tylenol PRN, daily labs. ID following. 3. Hx of mental disability/schizoaffective disorder/anxiety/ behavioral issues with aggression. Monitor for changes in behavior, as we have decreased multiple medications. Patient has signs sales representative with him at bedside from his facility. 4. HTN. Controlled. C/w BB again with holding parameters. 5. CKD Stage III. Cr 2.3, near baseline. F/u daily labs. 6. Iron deficiency anemia. Stable. C/w iron supplement. F/u CBC daily. 7. Hx of DVT. C/w anticoagulation. 8. HLD. C/w statin. 9. Hx of seizure. No seizure-like activity. C/w home medications. 10. GERD. C/w PPI. 11. BPH. C/w finasteride. 12. DM type II. HbA1c 7.5, not on home medications but should be. Start on ISS, consistent carb diet, AC/HS blood sugar checks. 13. DVT px. Apixiban BID. DISPOSITION: Currently under inpatient status in ICU. TOTAL AMOUNT OF ICU TIME SPENT ADDRESSING CARE: 45 mins 1. Acute on chronic respiratory failure, both hypoxemic and hypercapnic. 2. Cellulitis. 3. Seizure disorder. 4. Mental disability. 5. Mental illness. I had a very lengthy discussion with who is his attending. At this point, manipulations will be made in the noninvasive support. He certainly is not in extremis and I do not believe he will require intubation. I reviewed his medication list, which has multiple sedating psychiatric meds on it and I believe that is part of the issue. He also has a little bit of a change in his sleep wake cycle and seems to actually do better at night than during the day. For now, I would hold him in an nothing by mouth status until he is able to maintain at least several hours off the BiPAP. He is also being seen by infectious diseases for his cellulitis and I did speak at length with Dr. Ward regarding him this morning as well. They are managing his antimicrobials. His last white blood cell count was down to 5.8. At this point, he is critically ill. My hopes is that we will be able to keep him managed with just noninvasive support. I certainly wonder about concomitant underlying sleep apnea, but at this point, will treat him empirically. At this point, we will continue as outlined above. START TIME: 914 I LEFT THE BEDSIDE AT: 0956 41 minutes of critical care time delivered at the bedside, not including procedures. VS, I&O, 24H, Fishbone Vital Signs/I&O Vital Signs Date Time Temp Pulse Resp B/P (MAP) Pulse Ox O2 Delivery O2 Flow Rate FiO2 12/25/19 16:00 97.1 89 16 117/76 (90) 96 NIPPV (BIPAP/CPAP) 30 12/24/19 20:00 2.0 I&O- Last 24 Hours up to 6 AM 12/25/19 06:00 Intake Total 2860 ml Output Total 3845 ml Balance -985 ml Laboratory Data 24H LABS Laboratory Tests 2 12/24/19 22:35: Bedside Glucose (Misc Panel) 150H 12/24/19 22:38: Blood Gas Bicarbonate Standard 32.5H, Arterial Blood pH 7.365, Arterial Blood Partial Pressure CO2 64.1*H, Arterial Blood Partial Pressure O2 194.2H, Arterial Blood Total CO2 37.8H, Arterial Blood HCO3 35.8H, Arterial Blood Base Excess 8.6 H, Arterial Blood Oxygen Saturation 99.1H 12/25/19 04:12: Immature Granulocyte % (Auto) 0.3, Neutrophils (%) (Auto) 72.4H, Lymphocytes (%) (Auto) 12.0L, Monocytes (%) (Auto) 9.7H, Eosinophils (%) (Auto) 5.4H, Basophils (%) (Auto) 0.2, Neutrophils # (Auto) 4.2, Lymphocytes # (Auto) 0.7L, Monocytes # (Auto) 0.6, Eosinophils # (Auto) 0.3, Basophils # (Auto) 0.0, Nucleated Red Bloo d Cells % (auto) 0.0, Anion Gap 3L, Glomerular Filtration Rate 30.6L, Calcium Level 9.9, Total Bilirubin 0.5, Aspartate Amino Transf (AST/SGOT) 11, Alanine Aminotransferase (ALT/SGPT) 19, Alkaline Phosphatase 127H, Total Protein 6.6, Albumin 3.2, Albumin/Globulin Ratio 0.94L 12/25/19 08:01: Blood Gas Bicarbonate Standard 32.0H, Arterial Blood pH 7.297L, Arterial Blood Partial Pressure CO2 77.6*H, Arterial Blood Partial Pressure O2 93.0, Arterial Blood Total CO2 39.5H, Arterial Blood HCO3 37.1H, Arterial Blood Base Excess 8.2H, Arterial Blood Oxygen Saturation 96.6 12/25/19 12:07: Bedside Glucose (Misc Panel) 140H CBC/BMP Laboratory Tests 12/25/19 04:12 Microbiology Microbiology 12/22/19 Respiratory Virus Panel (PCR) (CAROL) - Final, Complete 12/22/19 Blood Culture - Preliminary, Resulted No Growth after 72 hours. All specime... 12/22/19 Blood Culture - Preliminary, Resulted No Growth after 72 hours. All specime... Current Medications Current Medications Medications (Trade) Dose Ordered Sig/Grant Route PRN Reason Start Time Stop Time Status Last Admin Dose Admin Acetaminophen (Tylenol Tab) 650 mg Q4H PRN PO PAIN OR FEVER 12/22/19 13:45 Albuterol Sulfate (Proventil Neb) 2.5 mg Q6HP PRN NEB SHORTNESS OF BREATH 12/24/19 17:15 Albuterol/ Ipratropium (Duoneb (Ipr 0.5mg/Alb 2.5mg)) 3 ml RQ4H NEB 12/24/19 20:00 12/25/19 15:06 Apixaban (Eliquis) 2.5 mg BID PO 12/22/19 21:00 12/25/19 09:07 DC 12/24/19 09:44 Atorvastatin Calcium (Lipitor) 10 mg DAILY PO 12/23/19 09:00 12/24/19 09:46 Azelastine HCl (Astelin) 1 spray BID NA 12/22/19 21:00 12/25/19 09:31 Benztropine Mesylate (Cogentin) 1 mg BID PO 12/22/19 21:00 12/25/19 09:33 Carvedilol (COReg) 6.25 mg BID PO 12/22/19 21:00 12/22/19 14:59 DC Carvedilol (COReg) 6.25 mg BID PO 12/23/19 21:00 12/24/19 09:45 Ceftaroline Fosamil 400 mg/ Dextrose 50 ml @ 50 mls/hr Q12H IV 12/23/19 00:00 12/25/19 12:28 Ceftaroline Fosamil 600 mg/ Dextrose 50 ml @ 50 mls/hr Q12H IV 12/23/19 00:00 12/22/19 14:25 DC Clonazepam (KlonoPIN) 1 mg BID PO 12/25/19 21:00 Clonazepam (KlonoPIN) 1 mg TID PO 12/22/19 16:00 12/25/19 16:28 DC 12/24/19 16:31 Dextrose (Dextrose 50%) 25 ml ASDIRECTED PRN IV SEE LABEL COMMENTS 12/24/19 17:45 Dimethicone (Vaniply) 1 dose BID TOP 12/25/19 09:00 12/25/19 12:27 Docusate Sodium (Colace) 200 mg BID PO 12/22/19 21:00 12/24/19 09:45 Enoxaparin Sodium (Lovenox) 90 mg Q12H SC 12/25/19 09:00 12/25/19 10:44 Ferrous Gluconate (Fergon) 324 mg DAILY PO 12/23/19 09:00 12/24/19 09:46 Finasteride (Proscar) 5 mg QHS PO 12/22/19 21:00 12/23/19 23:17 Fluticasone Propionate (Flonase 0.05% Nasal [place]) 2 spray QHS NARES 12/22/19 21:00 Glucagon (Glucagon) 1 mg ASDIRECTED PRN SC SEE LABEL COMMENTS 12/24/19 17:45 Glucose (Glucose) 16 GM ASDIRECTED PRN PO SEE LABEL COMMENTS 12/24/19 17:45 Haloperidol (Haldol) 2.5 mg BID PO 12/22/19 21:00 12/24/19 09:44 Home Med (Med Rec Complete!) ASDIRECTED XX 12/22/19 13:30 12/22/19 13:23 DC Hydroxyzine HCl (Atarax) 25 mg BID PO 12/25/19 21:00 Hydroxyzine HCl (Atarax) 25 mg TID PO 12/22/19 16:00 12/25/19 16:28 DC 12/25/19 16:05 Insulin Human Lispro (HumaLOG INSULIN) SEE PROTOCOL TABLE AC SC 12/25/19 07:30 12/25/19 09:16 DC Insulin Human Lispro (HumaLOG INSULIN) SEE PROTOCOL TABLE Q6H SC 12/25/19 12:00 Insulin Human Lispro (HumaLOG INSULIN) SEE PROTOCOL TABLE QHS SC 12/24/19 21:00 12/25/19 09:16 DC Lamotrigine (LaMICtal) 200 mg BID PO 12/22/19 21:00 12/25/19 09:30 [place] Carbonate ([place] Carbonate) 150 mg BID PO 12/22/19 21:00 12/25/19 09:30 Multivitamins (Theragram-M) 1 tab QHS PO 12/22/19 21:00 12/23/19 23:16 Nystatin (Mycostatin Powder, Nystop) 1 dose BID TOP 12/22/19 21:00 12/25/19 09:31 Olanzapine (ZyPREXA) 5 mg BID@0900,1600 PO 12/26/19 09:00 Olanzapine (ZyPREXA) 5 mg QHS PO 12/25/19 21:00 Olanzapine (ZyPREXA) 5 mg TID@0800,1200,1600 PO 12/22/19 16:00 12/25/19 16:28 DC 12/25/19 16:04 Olanzapine (ZyPREXA) 10 mg QHS PO 12/22/19 21:00 12/25/19 16:28 DC 12/24/19 19:56 Omeprazole (PriLOSEC) 40 mg DAILY PO 12/23/19 09:00 12/25/19 09:16 DC 12/24/19 09:45 Sodium Chloride 1,000 ml @ 80 mls/hr [id number] IV 12/22/19 13:45 12/24/19 08:29 DC 12/23/19 15:44 Sodium Chloride 1,000 ml @ 150 mls/hr Q6H40M IV 12/22/19 11:30 12/22/19 14:04 DC 12/22/19 11:54 Allergies Coded Allergies: NSAIDS (Non-Steroidal Anti-Inflamma (Verified Adverse Reaction, Intermediate, GERD , LIVER ISSUES, 02/18/19) Kristal Garcia MD December 25, 2019 16:48
[2019-12-25] MEDS: FLUTICASONE PROP 0.05% NASAL SPRAY 16 GM (FLONASE) NARES SCH (20:04)
[2019-12-25] MEDS: MULTIVITAMINS/MINERALS THERAP 1 TAB PO SCH (20:06)
[2019-12-25] MEDS: APIXABAN 2.5 MG TAB (ELIQUIS) PO SCH (20:06)
[2019-12-26] VITALS (14 sets, daily range): BP systolic 106–132; BP diastolic 67–82; O2SAT 93–96
[2019-12-26] MEDS: HumaLOG INSULIN (NovoLOG) PER UNIT SC SCH ×5 (00:23→20:52)
[2019-12-26] MEDS: CEFTAROLINE FOSAMIL 400 MG in D5W MINI-BAG PLUS 50 ML IV SCH ×2 (00:23→11:53)
[2019-12-26] MEDS: IPRATROPIUM 0.5MG/ALBUTEROL 2.5MG INH SOL UD 3ML (DUONEB)(J7620) NEB SCH ×6 (03:30→23:32)
[2019-12-26 04:59] LABS: BASO % 0.5 % (0.0-1.0); EOS # 0.2 10^3/uL (0.0-0.5); EOS % 5.1 % (0.0-3.0); HEMATOCRIT 37.3 % (42.0-52.0); LYMPH # 0.7 10^3/uL (1.5-5.0); LYMPH % 17.2 % (24.0-44.0); MEAN CORPUSCULAR HEMOGLOBIN 29.2 pg (27.0-33.0); MEAN CORPUSCULAR HGB CONC 29.5 g/dl (32.0-36.5); MEAN CORPUSCULAR VOLUME 98.9 fl (80.0-96.0); MONO # 0.4 10^3/uL (0.0-0.8); NEUTROPHILS # 2.9 10^3/uL (1.5-8.5); PLATELET COUNT, AUTOMATED 163 10^3/uL (150-450); RED BLOOD COUNT 3.77 10^6/uL (4.30-6.10); WHITE BLOOD COUNT 4.3 10^3/uL (4.0-10.0)
[2019-12-26 05:19] LABS: BILIRUBIN,TOTAL 0.5 MG/DL (0.2-1.0); CALCIUM LEVEL 10.2 MG/DL (8.8-10.2); CREATININE FOR GFR 2.19 MG/DL (0.70-1.30); GLOMERULAR FILTRATION RATE 32.5 (>49); POTASSIUM SERUM 4.6 MEQ/L (3.5-5.1)
[2019-12-26 05:40] LABS: ABG HCO3 38.1 MEQ/L (22.0-26.0); ABG O2 SATURATION 95.6 % (95.0-99.0); ABG PARTIAL PRESSURE O2 83.1 mmHg (75.0-100.0); ABG STANDARD HCO3 33.7 MEQ/L (22.0-26.0); ABG TOTAL CO2 40.4 MEQ/L (23.0-31.0); ABG pH (ARTERIAL) 7.331 UNITS (7.350-7.450)
[2019-12-26 05:44] LABS: ABG PARTIAL PRESSURE CO2 73.8 mmHg (35.0-45.0)
[2019-12-26] MEDS: DOCUSATE SODIUM 100 MG CAP PO SCH ×2 (08:00→20:51)
[2019-12-26] MEDS: lamoTRIgine 100MG TAB PO SCH ×2 (08:01→20:51)
[2019-12-26] MEDS: BENZTROPINE 1 MG TAB PO SCH ×2 (08:01→20:51)
[2019-12-26] MEDS: AZELASTINE 137MCG NASAL SPY 30 ML (ASTELIN) SCH ×2 (08:01→20:50)
[2019-12-26] MEDS: hydrOXYzine 25 MG TAB PO SCH ×2 (08:01→20:52)
[2019-12-26] MEDS: OLANZapine 5 MG TAB PO SCH ×3 (08:01→20:51)
[2019-12-26] MEDS: LITHIUM CARBONATE 150 MG CAP PO SCH ×2 (08:02→20:51)
[2019-12-26] MEDS: CARVedilol 6.25 MG TAB PO SCH ×2 (08:02→20:52)
[2019-12-26] MEDS: APIXABAN 2.5 MG TAB (ELIQUIS) PO SCH ×2 (08:02→20:51)
[2019-12-26] MEDS: ATORVASTATIN 10 MG TAB PO SCH (08:02)
[2019-12-26] MEDS: NYSTATIN 100,000 UNITS/GM TOPICAL PWD 15 GM TOP SCH ×2 (08:03→20:50)
[2019-12-26] MEDS: DIMETHICONE 2% OINTMENT(VANIPLY) 70GM TUBE TOP SCH ×2 (08:03→20:50)
[2019-12-26] MEDS: clonazePAM 1 MG TAB PO SCH ×2 (08:04→20:51)
[2019-12-26] MEDS: haloperidoL 5 MG TAB PO SCH ×2 (08:14→20:51)
[2019-12-26] MEDS: FERROUS GLUCONATE 324 MG TAB PO SCH (08:14)
--- NOTE | 2019-12-26 10:07 | CR ---
DATE OF CONSULTATION: 12/25/2019 ATTENDING PHYSICIAN: Akanksha Ward MD REASON FOR CONSULTATION: Recurrent cellulitis of the right lower extremity. HISTORY OF PRESENT ILLNESS: The patient is a 64-year-old male who presented to the hospital on 12/22/2019 with sudden onset of fever, increased weakness, and lethargy with worsening redness of the right lower extremity, especially in the thigh area just above the knee. The patient lives at the [facility], and most of the history came from the patient's housing management representative who came from the home. This morning, the patient is obtunded, which has been going on since about 1600 yesterday where the patient appears to be in respiratory acidosis and was on noninvasive positive pressure ventilation. In talking with the patient's nurse, as well as the patient's hospitalist attending, , the redness on the patient's leg has been getting better. The patient was placed on intravenous (IV) ceftaroline renally dosed at 400 mg IV every 12 hours because the patient does have a history of methicillin-resistant Staphylococcus aureus (MRSA) in wound back in 2018 on the right lower extremity and was also found to have positive MRSA in the nares and in hospitalization in October of 2019. The redness in the patient's leg is resolving and has retreated from the marker line that had been drawn upon the patient's initial admission. The patient's biggest problem at this time appears to be the obtundedness secondary to the respiratory acidosis. PAST MEDICAL HISTORY: 1. Recurrent right lower extremity cellulitis with prior hospitalizations, and he was on chronic suppressive antibiotic therapy for right lower extremity cellulitis in 2016. 2. Hypertension. 3. Iron-deficiency anemia. 4. Chronic kidney disease (CKD) stage III with baseline creatinine 1.95 to 2.5. 5. Diabetes type 2. 6. Intellectual disability. 7. Secondary hyperparathyroidism of renal cause. 8. Schizoaffective disorder. 9. Anxiety. 10. Behavioral issues with aggression. 11. Chronic venous stasis dermatitis and ulcers. 12. Chronic respiratory failure history. 13. Chronic femoral vein thrombosis in the right lower extremity. PAST SURGICAL HISTORY: The patient has had surgeries on the right lower extremity. FAMILY HISTORY: The patient is unable to answer questions at this time but appearing to look at the medical record, he did not know his father's history or his mother's history. His mother is . The patient has sixteen siblings, and the history is unknown. SOCIAL HISTORY: The patient is a current smoker of cigarettes and cigars of five cigarettes or less daily. He has no history of alcohol or drug abuse. 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. ALLERGIES: NONSTEROIDAL ANTIINFLAMMATORY DRUGS (NSAIDs). CURRENT INPATIENT MEDICATIONS: - insulin sliding scale - enoxaparin 90 mg every 12 hours - dimethicone topically daily - DuoNeb nebulizers - albuterol nebulizers as needed - carvedilol 6.25 twice a day - atorvastatin 10 mg daily - ferrous gluconate 324 mg daily - ceftaroline 400 mg IV every 12 hours - azelastine spray - benztropine docusate twice a day - finasteride 5 mg at night - fluticasone at night - haloperidol 2.5 mg twice a day - lamotrigine 200 mg twice a day - lithium 150 mg twice a day - multivitamins - nystatin powder - olanzapine 10 mg - Klonopin 1 mg three times a day - hydroxyzine 25 mg three times a day - olanzapine 5 mg three times a day - Tylenol as needed for fever or pain REVIEW OF SYSTEMS: Was unable to be elicited secondary to the patient's lethargy. PHYSICAL EXAMINATION: Vital signs: Temperature 97,3, pulse 88, respiratory rate 15, blood pressure 123/80, pulse oximetry 96% on noninvasive positive pressure ventilation with an FIO2 of 30%. General: The patient would wake up to painful stimuli and was able to somewhat wake up during examination later on in the morning but was not oriented to where he was and was unable to answer any questions. The patient does not appear to be in any acute distress. HEENT: Normocephalic, atraumatic with noninvasive positive pressure ventilation mask in place on the patient's face. Lungs: Were clear to auscultation bilaterally with minimal air movement. Cardiovascular: Was a regular rate and rhythm with no murmurs. Abdomen: Was soft, obese, and nontender. No organomegaly was appreciated. Extremities: Left lower extremity showed no edema. The right lower extremity showed red skin changes and chronic venous stasis skin changes with thickening and scaling of the skin, especially around the ankle and on the foot. The patient did have an area that was demarcated with a marker on the inner aspect of the right thigh just above the knee where there was some erythema within the marker. However, this did appear to be getting better. Skin: Findings in the lower extremities as above. No other rashes were present on the skin. Neurological examination: Unable to be performed due to the patient's lethargy. LABORATORY STUDIES: Today, complete blood count (CBC) was 5.8, hemoglobin 11.3, hematocrit 38.4, platelet count 146. Sodium 143, potassium 4.8, chloride 105, bicarbonate 35, BUN 29, creatinine 2.31, glucose 163, calcium 9.9, bilirubin 0.5, AST 11, ALT 19, alkaline phosphatase 127, total protein 6.6, albumin 3.2. MICROBIOLOGY: The patient has had two blood cultures that are negative times 72 hours that were done on 12/22/2019. Respiratory viral panel was negative on 12/22/2019. COVID-19 testing was also performed and was negative. IMAGING: The patient had a right lower extremity duplex venous ultrasound performed on 12/22/2019, which was reported to show no evidence of deep venous thrombosis of the right lower extremity femoral popliteal venous system. There were two enlarged right inguinal lymph nodes with fatty lsely, measuring 3.0 x 2.2 x 2.6 cm and 4.0 x 2.2 x 2.4 cm. The patient has had two chest x-rays with the most recent one being on 12/24/2019, which was reported as showing no focal consolidation or effusion and stable cardiomegaly. ASSESSMENT AND PLAN: The patient is a 64-year-old male who presented to the hospital with fever, lethargy, and weakness, who was diagnosed with sepsis with the source thought to be secondary from cellulitis. 1. Cellulitis. The patient's cellulitis is getting better at this time on IV ceftaroline. As long as the patient is nothing by mouth at this time we can continue with IV ceftaroline 400 mg every 12 hours, which is the renal dosing. Once the patient is able to tolerate oral intake, the patient can be switched to doxycycline 100 mg twice a day for 5 days. 2. Sepsis. This is secondary to cellulitis. This is resolved at this time, and the patient continues to get better from an infectious disease standpoint. However, the patient does have a hypercarbic respiratory failure that did require him to go on noninvasive positive pressure ventilation, which is being managed by Dr. Webber of pulmonology. PLAN: The plan is to continue with IV ceftaroline at this time until the patient is able to tolerate by mouth. Once the patient is able to tolerate by mouth, he can be switched to doxycycline 100 mg twice a day for 5 days. The patient should also undergo MRSA decolonization upon discharge with Hibiclens body washes daily for the first 3 days and then every other day for the next month. The patient should also have mupirocin ointment in the nares, fingernails, groin, and axilla once a day for a week for decolonization. We will follow along with the patient, and we thank you for the consult.
--- NOTE | 2019-12-26 12:49 | CCN ---
DATE OF VISIT: 12/26/2019 I again attended Lalito Gerard here in the intensive care unit. Patient has been examined and chart reviewed. I spoke at length with the nurse at the bedside, his aide from his residence, and as well as with Dr. Colon regarding his status. He is much more awake, alert, and appropriate. He has been able to be off noninvasive support. He just finished a meal without difficulties. At the moment, he is quite pleasant, just keeps stating he wants to go back home. Denies any complaints. Maximum temperature (Tmax) overnight 97.8, blood pressures 112-120 systolic, heart rate in the 80s with a sinus mechanism, respiratory rate 14-18 without accessory muscle use. Ins and outs midnight to midnight: 1700 mL in with 3680 mL out. Most recent other laboratories show a white blood cell count of 5.3, hemoglobin 11.0, platelet count of 163,000, 67% segs, no bands. Sodium 145, potassium 4.6, chloride 106, CO2 36, BUN 29, creatinine 2.19, down from 2.31 yesterday. Blood gas done this morning on noninvasive support I of 18, E of 10, FiO2 of 30%, showed a pH 7.331, pCO2 of 73.8, pO2 of 83. On exam, he is awake, alert, appropriate, pleasantly interactive at the moment, although gets upset when discussing his need to stay in the hospital. HEENT: Otherwise normocephalic, atraumatic. Pupils do react. Neck appears supple. Trachea is in the midline. Chest is clear to both auscultation and percussion, symmetric expansion, and no significant focal adventitious breath sounds are identified. Cardiac exam is regular with no gallop. Peripheral pulses palpable. Trace edema. Abdomen, obese, soft with active bowel sounds. Extremities are without cyanosis or clubbing. Neurologically, he does move all extremities. IMPRESSION: 1. Acute on chronic respiratory failure, both hypoxemic and hypercapnic. 2. Obstructive sleep apnea (DANIEL) suspected. 3. Cellulitis. 4. Seizure disorder. 5. Mental disability. 6. Underlying mental illness. At this point, I believe that his blood gas is really at his baseline. I suspect he does have underlying DANIEL complicated by at least some element of cor pulmonale. He has diuresed well. Antibiotics are being managed through primary service and infectious diseases for his cellulitis. I do believe trying to limit some of his sedating medications is worthwhile in view of the above, but I am told that every time that has been attempted in the past, he becomes extremely aggressive. Very difficult, as I do not believe that keeping someone on a noninvasive port to compensate for medications would be prudent. Certainly, outpatient evaluation regarding sleep apnea could be considered if it is felt by his caretakers that he would be compliant with therapy. Certainly, a sleep study would have to be done as an outpatient. For now, we will use the noninvasive support/bilevel positive airway pressure (BiPAP) for naps and at bedtime. Will wean that as able. Further recommendations will be made in the progress record as new information becomes available.
--- NOTE | 2019-12-26 15:58 | IPNPDOC ---
Date Seen The patient was seen on 12/26/19. Progress Note SUBJECTIVE: Repeat ABG this a.m. showed persistent hypercapnia with pCO2 in 70's. When trending ABG, this seems to be his baseline. More awake, alert and following commands on exam but appears weak. Starting diet. As per pulmonary, likely has DANIEL. Will use Bipap for naps and nighttime. Patient's RLE shows multiple excoriation gregory, some that are bleeding and weeping. Patient has been scratchi ng the lower extremity. Will cover loosely and c/w wound care. Patient denies chest pain, shortness of breath, n/v/d. OBJECTIVE: VITAL SIGNS: Please see below PHYSICAL EXAMINATION: CONSTITUTIONAL: awake, following commands but weak EYES: PERRLA, EOM intact HENT, MOUTH: Normocephalic, atraumatic,dry mucous membranes, BIPAP mask in place NECK: SUPPLE, no JVD, no lymphadenopathy, no carotid bruit CV: regular rhythm, S1S2 normal, no murmurs/rubs/gallops RESPIRATORY: Clear to auscultation bilaterally, no rales/rhonchi/wheezes GI: nontender. BS positive in 4 quadrants, soft, no rebound or guarding, no organomegaly : Deferred MUSCULOSKELETAL: Normal ROM. No cyanosis, clubbing, swelling, joint deformity. INTEGUMENTARY: Multiple excoriation gregory on RLE, some bleeding and weeping. Cellulitis appears slightly worsened on RLE below knee. Cellulitis redness/rash above the right knee/on right thigh improving. LLE no redness. NEUROLOGIC: no focal deficits, CN 2-12 not tested LABORATORY DATA: Please see below IMAGING: No new imaging. ASSESSMENT: 64-year-old male treated in ICU for acute hypoxic and hypercapnic respiratory failure, right lower extremity cellulitis. PLAN: 1. Acute hypoxic and hypercapnic respiratory failure likely multifactorial to obesity hypoventilation syndrome, possible DANIEL. Cannot rule out medications as factor as well. More awake and alert after decreased many sedating medications, ABG believed to be near baseline- chronic hypercapnia. C/w BIPAP at naps, night. Will need o/p sleep study if he would tolerate. Encouraging to position in upright position during day, HOB >30-45 degress 2. Right lower extremity cellulitis. Slightly worsened after patient scratching, leaving open lesions. C/w ceftaroline (Day 5), tylenol PRN, daily labs. ID following. Wound care. 3. Hx of mental disability/schizoaffective disorder/anxiety/ behavioral issues with aggression. Behavior is stable on decreased dose of meds. Patient has kiosk sales representative with him at bedside from his facility. 4. HTN. Controlled. C/w BB again with holding parameters. 5. CKD Stage III. Cr 2.19 is at baseline. F/u daily labs. 6. Iron deficiency anemia. Stable. C/w iron supplement, CBC daily. 7. Hx of DVT. C/w anticoagulation. 8. HLD. C/w statin. 9. Hx of seizure. No seizure-like activity. C/w home medications. 10. GERD. C/w PPI. 11. BPH. C/w finasteride. 12. DM type II. HbA1c 7.5, not on home medications but should be on PO after d ischarge. C/w ISS, consistent carb diet, AC/HS blood sugar checks. 13. DVT px. Apixiban BID. DISPOSITION: Currently under inpatient status in ICU. Plan is eventually to discharge back to [facility]. TOTAL AMOUNT OF ICU TIME SPENT ADDRESSING CARE: 35 mins VS, I&O, 24H, Fishbone Vital Signs/I&O Vital Signs Date Time Temp Pulse Resp B/P (MAP) Pulse Ox O2 Delivery O2 Flow Rate FiO2 12/26/19 12:00 97.8 90 16 116/80 (92) 93 Nasal Cannula 2.0 12/26/19 12:00 30 I&O- Last 24 Hours up to 6 AM 12/26/19 06:00 Intake Total 1720 ml Output Total 3225 ml Balance -1505 ml Laboratory Data 24H LABS Laboratory Tests 2 12/25/19 17:49: Bedside Glucose (Misc Panel) 138H 12/26/19 00:08: Bedside Glucose (Misc Panel) 128H 12/26/19 04:28: Immature Granulocyte % (Auto) 0.2, Neutrophils (%) (Auto) 67.0H, Lymphocytes (%) (Auto) 17.2L, Monocytes (%) (Auto) 10.0H, Eosinophils (%) (Auto) 5.1H, Basophils (%) (Auto) 0.5, Neutrophils # (Auto) 2.9, Lymphocytes # (Auto) 0.7L, Monocytes # (Auto) 0.4, Eosinophils # (Auto) 0.2, Basophils # (Auto) 0.0, Nucleated Red Blood Cells % (auto) 0.0, Anion Gap 3L, Glomerular Filtration Rate 32.5L, Calcium Level 10.2, Total Bilirubin 0.5, Aspartate Amino Transf (AST/SGOT) 7, Alanine Aminotransferase (ALT/SGPT) 20, Alkaline Phosphatase 120H, VU-Fiv-Y-Type Natriuretic Peptide 79, Total Protein 7.0, Albumin 3.0L, Albumin/Globulin Ratio 0.75L 12/26/19 05:19: Blood Gas Bicarbonate Standard 33.7H, Arterial Blood pH 7.331L, Arterial Blood Partial Pressure CO2 73.8*H, Arterial Blood Partial Pressure O2 83.1, Arterial Blood Total CO2 40.4H, Arterial Blood HCO3 38.1H, Arterial Blood Base Excess 10.0H, Arterial Blood Oxygen Saturation 95.6 12/26/19 05:39: Bedside Glucose (Misc Panel) 135H 12/26/19 11:43: Bedside Glucose (Misc Panel) 178H CBC/BMP Laboratory Tests 12/26/19 04:28 Microbiology Microbiology 12/22/19 Respiratory Virus Panel (PCR) (CAROL) - Final, Complete 12/22/19 Blood Culture - Preliminary, Resulted No Growth after 72 hours. All specime... 12/22/19 Blood Culture - Preliminary, Resulted No Growth after 72 hours. All specime... Current Medications Current Medications Medications (Trade) Dose Ordered Sig/Grant Route PRN Reason Start Time Stop Time Status Last Admin Dose Admin Acetaminophen (Tylenol Tab) 650 mg Q4H PRN PO PAIN OR FEVER 12/22/19 13:45 Albuterol Sulfate (Proventil Neb) 2.5 mg Q6HP PRN NEB SHORTNESS OF BREATH 12/24/19 17:15 Albuterol/ Ipratropium (Duoneb (Ipr 0.5mg/Alb 2.5mg)) 3 ml RQ4H NEB 12/24/19 20:00 12/26/19 11:33 Apixaban (Eliquis) 2.5 mg BID PO 12/22/19 21:00 12/25/19 09:07 DC 12/24/19 09:44 Apixaban (Eliquis) 2.5 mg BID PO 12/25/19 21:00 12/26/19 08:02 Atorvastatin Calcium (Lipitor) 10 mg DAILY PO 12/23/19 09:00 12/26/19 08:02 Azelastine HCl (Astelin) 1 spray BID NA 12/22/19 21:00 12/26/19 08:01 Benztropine Mesylate (Cogentin) 1 mg BID PO 12/22/19 21:00 12/26/19 08:01 Carvedilol (COReg) 6.25 mg BID PO 12/22/19 21:00 12/22/19 14:59 DC Carvedilol (COReg) 6.25 mg BID PO 12/23/19 21:00 12/26/19 08:02 Ceftaroline Fosamil 400 mg/ Dextrose 50 ml @ 50 mls/hr Q12H IV 12/23/19 00:00 12/26/19 11:53 Ceftaroline Fosamil 600 mg/ Dextrose 50 ml @ 50 mls/hr Q12H IV 12/23/19 00:00 12/22/19 14:25 DC Clonazepam (KlonoPIN) 1 mg BID PO 12/25/19 21:00 12/26/19 08:04 Clonazepam (KlonoPIN) 1 mg TID PO 12/22/19 16:00 12/25/19 16:28 DC 12/24/19 16:31 Dextrose (Dextrose 50%) 25 ml ASDIRECTED PRN IV SEE LABEL COMMENTS 12/24/19 17:45 Dimethicone (Vaniply) 1 dose BID TOP 12/25/19 09:00 12/26/19 08:03 Docusate Sodium (Colace) 200 mg BID PO 12/22/19 21:00 12/26/19 08:00 Enoxaparin Sodium (Lovenox) 90 mg Q12H SC 12/25/19 09:00 12/25/19 17:02 DC 12/25/19 10:44 Ferrous Gluconate (Fergon) 324 mg DAILY PO 12/23/19 09:00 12/26/19 08:14 Finasteride (Proscar) 5 mg QHS PO 12/22/19 21:00 12/25/19 20:05 Fluticasone Propionate (Flonase 0.05% Nasal [place]) 2 spray QHS NARES 12/22/19 21:00 12/25/19 20:04 Glucagon (Glucagon) 1 mg ASDIRECTED PRN SC SEE LABEL COMMENTS 12/24/19 17:45 Glucose (Glucose) 16 GM ASDIRECTED PRN PO SEE LABEL COMMENTS 12/24/19 17:45 Haloperidol (Haldol) 2.5 mg BID PO 12/22/19 21:00 12/26/19 08:14 Home Med (Med Rec Complete!) ASDIRECTED XX 12/22/19 13:30 12/22/19 13:23 DC Hydroxyzine HCl (Atarax) 25 mg BID PO 12/25/19 21:00 12/26/19 08:01 Hydroxyzine HCl (Atarax) 25 mg TID PO 12/22/19 16:00 12/25/19 16:28 DC 12/25/19 16:05 Insulin Human Lispro (HumaLOG INSULIN) SEE PROTOCOL TABLE AC AK 12/25/19 07:30 12/25/19 09:16 DC Insulin Human Lispro (H[facility]LOG INSULIN) [facility] 12/25[facility] 12:00 12/26/19 10:22 DC 12/26/19 05:42 Insulin Human Lispro (HumaLOG INSULIN) SEE PROTOCOL TABLE QHS AK 12/24/19 21:00 12/25/19 09:16 DC Insulin Human Lispro (HumaLOG INSULIN) See Protocol Table AC AK 12/26/19 12:00 12/26/19 11:53 Insulin Human Lispro (HumaLOG INSULIN) See Protocol Table QHS AK 12/26/19 21:00 Lamotrigine (LaMICtal) 200 mg BID PO 12/22/19 21:00 12/26/19 08:01 [place] Carbonate ([place] Carbonate) 150 mg BID PO 12/22/19 21:00 12/26/19 08:02 Multivitamins (Theragram-M) 1 tab QHS PO 12/22/19 21:00 12/25/19 20:06 Nystatin (Mycostatin Powder, Nystop) 1 dose BID TOP 12/22/19 21:00 12/26/19 08:03 Olanzapine (ZyPREXA) 5 mg BID@0900,1600 PO 12/26/19 09:00 12/26/19 08:01 Olanzapine (ZyPREXA) 5 mg QHS PO 12/25/19 21:00 12/25/19 20:06 Olanzapine (ZyPREXA) 5 mg TID@0800,1200,1600 PO 12/22/19 16:00 12/25/19 16:28 DC 12/25/19 16:04 Olanzapine (ZyPREXA) 10 mg QHS PO 12/22/19 21:00 12/25/19 16:28 DC 12/24/19 19:56 Omeprazole (PriLOSEC) 40 mg DAILY PO 12/23/19 09:00 12/25/19 09:16 DC 12/24/19 09:45 Sodium Chloride 1,000 ml @ 80 mls/hr Q63M87H IV 12/22/19 13:45 12/24/19 08:29 DC 12/23/19 15:44 Sodium Chloride 1,000 ml @ 150 mls/hr Q6H40M IV 12/22/19 11:30 12/22/19 14:04 DC 12/22/19 11:54 Allergies Coded Allergies: NSAIDS (Non-Steroidal Anti-Inflamma (Verified Adverse Reaction, Interm ediate, GERD , LIVER ISSUES, 02/18/19) Kristal Garcia MD December 26, 2019 15:58
[2019-12-26] MEDS: FLUTICASONE PROP 0.05% NASAL SPRAY 16 GM (FLONASE) NARES SCH (20:50)
[2019-12-26] MEDS: MULTIVITAMINS/MINERALS THERAP 1 TAB PO SCH (20:51)
[2019-12-26] MEDS: FINASTERIDE 5 MG TAB PO SCH (20:51)
[2019-12-27] VITALS (10 sets, daily range): BP systolic 91–131; BP diastolic 61–81; O2SAT 91–96
[2019-12-27] MEDS: CEFTAROLINE FOSAMIL 400 MG in D5W MINI-BAG PLUS 50 ML IV SCH ×3 (00:55→23:43)
[2019-12-27] MEDS: IPRATROPIUM 0.5MG/ALBUTEROL 2.5MG INH SOL UD 3ML (DUONEB)(J7620) NEB SCH ×6 (03:34→23:22)
[2019-12-27 05:12] LABS: BASO % 0.3 % (0.0-1.0); EOS # 0.3 10^3/uL (0.0-0.5); EOS % 5.3 % (0.0-3.0); HEMATOCRIT 36.2 % (42.0-52.0); HEMOGLOBIN 10.9 g/dl (13.5-17.5); LYMPH # 0.9 10^3/uL (1.5-5.0); LYMPH % 15.4 % (24.0-44.0); MEAN CORPUSCULAR HEMOGLOBIN 29.5 pg (27.0-33.0); MEAN CORPUSCULAR HGB CONC 30.1 g/dl (32.0-36.5); MEAN CORPUSCULAR VOLUME 97.8 fl (80.0-96.0); MONO # 0.5 10^3/uL (0.0-0.8); MONO % 9.3 % (0.0-5.0); PLATELET COUNT, AUTOMATED 173 10^3/uL (150-450); WHITE BLOOD COUNT 5.8 10^3/uL (4.0-10.0)
[2019-12-27 05:18] LABS: ALBUMIN 3.1 GM/DL (3.2-5.2); BILIRUBIN,TOTAL 0.4 MG/DL (0.2-1.0); CALCIUM LEVEL 9.7 MG/DL (8.8-10.2); CREATININE FOR GFR 2.39 MG/DL (0.70-1.30); GLOMERULAR FILTRATION RATE 29.4 (>49); POTASSIUM SERUM 4.8 MEQ/L (3.5-5.1); TOTAL PROTEIN 6.3 GM/DL (6.4-8.2)
[2019-12-27] MEDS: HumaLOG INSULIN (NovoLOG) PER UNIT SC SCH ×4 (10:14→20:57)
[2019-12-27] MEDS: clonazePAM 1 MG TAB PO SCH ×2 (10:14→20:51)
[2019-12-27] MEDS: DOCUSATE SODIUM 100 MG CAP PO SCH ×2 (10:15→20:49)
[2019-12-27] MEDS: BENZTROPINE 1 MG TAB PO SCH ×2 (10:15→20:47)
[2019-12-27] MEDS: OLANZapine 5 MG TAB PO SCH ×3 (10:15→20:50)
[2019-12-27] MEDS: CARVedilol 6.25 MG TAB PO SCH ×2 (10:15→20:49)
[2019-12-27] MEDS: LITHIUM CARBONATE 150 MG CAP PO SCH ×2 (10:16→20:50)
[2019-12-27] MEDS: APIXABAN 2.5 MG TAB (ELIQUIS) PO SCH ×2 (10:16→20:47)
[2019-12-27] MEDS: hydrOXYzine 25 MG TAB PO SCH ×2 (10:16→20:50)
[2019-12-27] MEDS: ATORVASTATIN 10 MG TAB PO SCH (10:16)
[2019-12-27] MEDS: lamoTRIgine 100MG TAB PO SCH ×2 (10:16→20:47)
[2019-12-27] MEDS: AZELASTINE 137MCG NASAL SPY 30 ML (ASTELIN) SCH ×2 (10:17→20:52)
[2019-12-27] MEDS: NYSTATIN 100,000 UNITS/GM TOPICAL PWD 15 GM TOP SCH ×2 (10:17→20:53)
[2019-12-27] MEDS: DIMETHICONE 2% OINTMENT(VANIPLY) 70GM TUBE TOP SCH ×2 (10:17→20:52)
[2019-12-27] MEDS: haloperidoL 5 MG TAB PO SCH ×2 (10:22→20:47)
[2019-12-27] MEDS: FERROUS GLUCONATE 324 MG TAB PO SCH (10:22)
--- NOTE | 2019-12-27 10:23 | IPN ---
DATE OF VISIT: 12/27/2019 I again attended Lalito Gerard here in the intensive care unit. Patient has been examined and chart reviewed. I spoke at length with the nurse at the bedside and the primary service. He has tolerated noninvasive support overnight. He was doing better from a mental status standpoint when he is off. This morning, he is awake, alert, and wants breakfast. Maximum temperature (Tmax) overnight 98.2, blood pressure 91-110 systolic, heart rate generally in the 70s with a sinus mechanism, respiratory rate 14-18 without accessory muscle use. Ins and outs midnight to midnight; 2845 mL in with 2770 mL out. White blood cell count of 5.8, hemoglobin 10.9, platelet count 173,000, 60% segs, no bands. Sodium 143, potassium of 4.8, chloride 105, CO2 36, BUN 38, creatinine 2.39. No new blood gas this morning. On exam, he is awake, alert, and follows commands. Appropriately interactive. HEENT: Shows pupils reactive to light. Sclerae clear. Trachea is in the midline. Chest, diminished but symmetric expansion. Some faint crackles at the bases with early inspiration. Clear with inspiratory effort. No other focal adventitious breath sounds are identified. Cardiac exam is regular. Peripheral pulses palpable. He does have trace edema. Abdomen, soft with active bowel sounds, mildly obese. No obvious organomegaly or masses. Extremities show a cellulitis of the right lower extremity. Area is consistent with excoriation. Neurologically, he is awake, alert, interactive. Consistent with his learning disability. IMPRESSION: 1. Acute on chronic respiratory failure, both hypoxemic and hypercapnic. 2. Suspect underlying obstructive sleep apnea (DANIEL). Further evaluation pending. 3. Mental disability. 4. Cellulitis, right lower extremity. RECOMMENDATIONS: At this point, we will transition him over to a tabletop and, hopefully, he could be allowed to get out to the progressive care unit. He will likely require formal nocturnal polysomnography upon discharge. Certainly, his medications play a role in his overall status. We will proceed as outlined above. Further recommendations will be made in the progress record as new information becomes available.
--- NOTE | 2019-12-27 11:20 | IPNPDOC ---
Date Seen The patient was seen on 12/27/19. Progress Note SUBJECTIVE: Awake and more alert this AM, BIPAP has been being used with naps, night time. 2 L NC during the day. Tolerating diet well, transferring to PCU today. Patient denies chest pain, shortness of breath, n/v/d. OBJECTIVE: VITAL SIGNS: Please see below PHYSICAL EXAMINATION: CONSTITUTIONAL: awake, following commands. More alert EYES: PERRLA, EOM intact HENT, MOUTH: Normocephalic, atraumatic,dry mucous membranes, BIPAP mask in place NECK: SUPPLE, no JVD, no lymphadenopathy, no carotid bruit CV: regular rhythm, S1S2 normal, no murmurs/rubs/gallops RESPIRATORY: Decreased breath sounds bilaterally, mild crackles in bases. No rales/rhonchi/wheezes GI: nontender. BS positive in 4 quadrants, soft, no rebound or guarding, no organomegaly : Deferred MUSCULOSKELETAL: Normal ROM. No cyanosis, clubbing, swelling, joint deformity. INTEGUMENTARY: Multiple excoriation gregory on RLE, some scabbed compared to yesterday, some weeping. Cellulitis appears slightly improved compared to 12/26/19, redness/rash above the right knee/on right thigh continues to improve. LLE no redness. NEUROLOGIC: no focal deficits, CN 2-12 not tested LABORATORY DATA: Please see below IMAGING: No new imaging. ASSESSMENT: 64-year-old male who is being treated for acute hypoxic and h ypercapnic respiratory failure, right lower extremity cellulitis. PLAN: 1. Acute on chronic hypercapnic respiratory failure likely multifactorial to obesity hypoventilation syndrome, possible DANIEL. Chronic hypercapnia on ABG. On 2 L NC between Bipap, decreased breath sounds still. C/w tabletop BIPAP at naps, night. Will need o/p nocturnal polysomnography upon discharge. Encouraging to position in upright position during day, HOB >30-45 degress. Duoneb ATC, albuterol PRN. 2. Right lower extremity cellulitis. Slightly improved today, multiple lesions now scabbed. C/w ceftaroline (Day 6), tylenol PRN, daily labs. ID following. Wound care. 3. Hx of mental disability/schizoaffective disorder/anxiety/ behavioral issues with aggression. Behavior is stable. Patient has group sales representative with him at bedside from his facility. 4. HTN. Controlled. C/w BB again with holding parameters. 5. CKD Stage III. Cr 2.39 is at baseline. F/u daily labs. 6. Iron deficiency anemia. Stable. C/w iron supplement, CBC daily. 7. Hx of DVT. C/w anticoagulation. 8. HLD. C/w statin. 9. Hx of seizure. No seizure-like activity. C/w home medications. 10. GERD. C/w PPI. 11. BPH. C/w finasteride. 12. DM type II. HbA1c 7.5, not on home medications but should be on PO after discharge. C/w ISS, consistent carb diet, AC/HS blood sugar checks. 13. DVT px. Apixiban BID. DISPOSITION: Transferring to PCU today. Plan is eventually to discharge back to [facility] when medically appropriate. TOTAL AMOUNT OF ICU TIME SPENT ADDRESSING CARE: 35 mins VS, I&O, 24H, Fishbone Vital Signs/I&O Vital Signs Date Time Temp Pulse Resp B/P (MAP) Pulse Ox O2 Delivery O2 Flow Rate FiO2 12/27/19 10:15 87 98/64 12/27/19 10:00 97.6 16 95 Nasal Cannula 2.0 12/27/19 07:53 30 I&O- Last 24 Hours up to 6 AM 12/27/19 06:00 Intake Total 2605 ml Output Total 2825 ml Balance -220 ml Laboratory Data 24H LABS Laboratory Tests 2 12/26/19 11:43: Bedside Glucose (Misc Panel) 178H 12/26/19 16:59: Bedside Glucose (Misc Panel) 109 12/26/19 20:48: Bedside Glucose (Misc Panel) 141H 12/27/19 04:35: Immature Granulocyte % (Auto) 0.7, Neutrophils (%) (Auto) 69.0H, Lymphocytes (%) (Auto) 15.4L, Monocytes (%) (Auto) 9.3H, Eosinophils (%) (Auto) 5.3H, Basophils (%) (Auto) 0.3, Neutrophils # (Auto) 4.0, Lymphocytes # (Auto) 0.9L, Monocytes # (Auto) 0.5, Eosinophils # (Auto) 0.3, Basophils # (Auto) 0.0, Nucleated Red Blood Cells % (auto) 0.0, Anion Gap 2L, Glomerular Filtration Rate 29.4L, Calcium Level 9.7, Total Bilirubin 0.4, Aspartate Amino Transf (AST/SGOT) 7, Alanine Aminotransferase (ALT/SGPT) 17, Alkaline Phosphatase 113, Total Protein 6.3L, Albumin 3.1L, Albumin/Globulin Ratio 0.97L 12/27/19 09:26: Bedside Glucose (Misc Panel) 133H CBC/BMP Laboratory Tests 12/27/19 04:35 Microbiology Microbiology 12/22/19 Respiratory Virus Panel (PCR) (CAROL) - Final, Complete 12/22/19 Blood Culture - Final, Complete NO GROWTH AFTER 5 DAYS 12/22/19 Blood Culture - Final, Complete NO GROWTH AFTER 5 DAYS Current Medications Current Medications Medications (Trade) Dose Ordered Sig/Grant Route PRN Reason Start Time Stop Time Status Last Admin Dose Admin Acetaminophen (Tylenol Tab) 650 mg Q4H PRN PO PAIN OR FEVER 12/22/19 13:45 Albuterol Sulfate (Proventil Neb) 2.5 mg Q6HP PRN NEB SHORTNESS OF BREATH 12/24/19 17:15 Albuterol/ Ipratropium (Duoneb (Ipr 0.5mg/Alb 2.5mg)) 3 ml RQ4H NEB 12/24/19 20:00 12/27/19 07:50 Apixaban (Eliquis) 2.5 mg BID PO 12/22/19 21:00 12/25/19 09:07 DC 12/24/19 09:44 Apixaban (Eliquis) 2.5 mg BID PO 12/25/19 21:00 12/27/19 10:16 Atorvastatin Calcium (Lipitor) 10 mg DAILY PO 12/23/19 09:00 12/27/19 10:16 Azelastine HCl (Astelin) 1 spray BID NA 12/22/19 21:00 12/27/19 10:17 Benztropine Mesylate (Cogentin) 1 mg BID PO 12/22/19 21:00 12/27/19 10:15 Carvedilol (COReg) 6.25 mg BID PO 12/22/19 21:00 12/22/19 14:59 DC Carvedilol (COReg) 6.25 mg BID PO 12/23/19 21:00 12/26/19 20:52 Ceftaroline Fosamil 400 mg/ Dextrose 50 ml @ 50 mls/hr Q12H IV 12/23/19 00:00 12/27/19 00:55 Ceftaroline Fosamil 600 mg/ Dextrose 50 ml @ 50 mls/hr Q12H IV 12/23/19 00:00 12/22/19 14:25 DC Clonazepam (KlonoPIN) 1 mg BID PO 12/25/19 21:00 12/27/19 10:14 Clonazepam (KlonoPIN) 1 mg TID PO 12/22/19 16:00 12/25/19 16:28 DC 12/24/19 16:31 Dextrose (Dextrose 50%) 25 ml ASDIRECTED PRN IV SEE LABEL COMMENTS 12/24/19 17:45 Dimethicone (Vaniply) 1 dose BID TOP 12/25/19 09:00 12/27/19 10:17 Docusate Sodium (Colace) 200 mg BID PO 12/22/19 21:00 12/27/19 10:15 Enoxaparin Sodium (Lovenox) 90 mg Q12H SC 12/25/19 09:00 12/25/19 17:02 DC 12/25/19 10:44 Ferrous Gluconate (Fergon) 324 mg DAILY PO 12/23/19 09:00 12/27/19 10:22 Finasteride (Proscar) 5 mg QHS PO 12/22/19 21:00 12/26/19 20:51 Fluticasone Propionate (Flonase 0.05% Nasal [place]) 2 spray QHS NARES 12/22/19 21:00 12/26/19 20:50 Glucagon (Glucagon) 1 mg ASDIRECTED PRN SC SEE LABEL COMMENTS 12/24/19 17:45 Glucose (Glucose) 16 GM ASDIRECTED PRN PO SEE LABEL COMMENTS 12/24/19 17:45 Haloperidol (Haldol) 2.5 mg BID PO 12/22/19 21:00 12/27/19 10:22 Home Med (Med Rec Complete!) ASDIRECTED XX 12/22/19 13:30 12/22/19 13:23 DC Hydroxyzine HCl (Atarax) 25 mg BID PO 12/25/19 21:00 12/27/19 10:16 Hydroxyzine HCl (Atarax) 25 mg TID PO 12/22/19 16:00 12/25/19 16:28 DC 12/25/19 16:05 Insulin Human Lispro (HumaLOG INSULIN) SEE PROTOCOL TABLE AC SC 12/25/19 07:30 12/25/19 09:16 DC Insulin Human Lispro (HumaLOG INSULIN) SEE PROTOCOL TABLE Q6H SC 12/25/19 12:00 12/26/19 10:22 DC 12/26/19 05:42 Insulin Human Lispro (HumaLOG INSULIN) SEE PROTOCOL TABLE QHS SC 12/24/19 21:00 12/25/19 09:16 DC Insulin Human Lispro (HumaLOG INSULIN) See Protocol Table AC SC 12/26/19 12:00 12/27/19 10:14 Insulin Human Lispro (HumaLOG INSULIN) See Protocol Table QHS SC 12/26/19 21:00 Lamotrigine (LaMICtal) 200 mg BID PO 12/22/19 21:00 12/27/19 10:16 [place] Carbonate ([place] Carbonate) 150 mg BID PO 12/22/19 21:00 12/27/19 10:16 Miscellaneous (Unresolved Clarification Entry) SEE LABEL COMMENTS DAILY XX 12/27/19 09:00 12/27/19 10:54 DC Multivitamins (Theragram-M) 1 tab QHS PO 12/22/19 21:00 12/26/19 20:51 Nystatin (Mycostatin Powder, Nystop) 1 dose BID TOP 12/22/19 21:00 12/27/19 10:17 Olanzapine (ZyPREXA) 5 mg BID@0900,1600 PO 12/26/19 09:00 12/27/19 10:15 Olanzapine (ZyPREXA) 5 mg QHS PO 12/25/19 21:00 12/26/19 20:51 Olanzapine (ZyPREXA) 5 mg TID@0800,1200,1600 PO 12/22/19 16:00 12/25/19 16:28 DC 12/25/19 16:04 Olanzapine (ZyPREXA) 10 mg QHS PO 12/22/19 21:00 12/25/19 16:28 DC 12/24/19 19:56 Omeprazole (PriLOSEC) 40 mg DAILY PO 12/23/19 09:00 12/25/19 09:16 DC 12/24/19 09:45 Sodium Chloride 1,000 ml @ 80 mls/hr [id number] IV 12/22/19 13:45 12/24/19 08:29 DC 12/23/19 15:44 Sodium Chloride 1,000 ml @ 150 mls/hr Q6H40M IV 12/22/19 11:30 12/22/19 14:04 DC 12/22/19 11:54 Allergies Coded Allergies: NSAIDS (Non-Steroidal Anti-Inflamma (Verified Adverse Reaction, Intermediate, GERD , LIVER ISSUES, 02/18/19) Kristal Garcia MD December 27, 2019 11:20
[2019-12-27] MEDS: FINASTERIDE 5 MG TAB PO SCH (20:50)
[2019-12-27] MEDS: MULTIVITAMINS/MINERALS THERAP 1 TAB PO SCH (20:51)
[2019-12-27] MEDS: FLUTICASONE PROP 0.05% NASAL SPRAY 16 GM (FLONASE) NARES SCH (20:52)
[2019-12-28] VITALS (11 sets, daily range): BP systolic 113–131; BP diastolic 58–84; O2SAT 94–97
[2019-12-28] MEDS: IPRATROPIUM 0.5MG/ALBUTEROL 2.5MG INH SOL UD 3ML (DUONEB)(J7620) NEB SCH ×6 (03:56→23:31)
[2019-12-28 06:06] LABS: HEMATOCRIT 34.8 % (42.0-52.0); HEMOGLOBIN 10.6 g/dl (13.5-17.5); MEAN CORPUSCULAR HEMOGLOBIN 29.9 pg (27.0-33.0); MEAN CORPUSCULAR HGB CONC 30.5 g/dl (32.0-36.5); MEAN CORPUSCULAR VOLUME 98.3 fl (80.0-96.0); PLATELET COUNT, AUTOMATED 165 10^3/uL (150-450); RED BLOOD COUNT 3.54 10^6/uL (4.30-6.10); WHITE BLOOD COUNT 5.1 10^3/uL (4.0-10.0)
[2019-12-28 06:27] LABS: BILIRUBIN,TOTAL 0.6 MG/DL (0.2-1.0); CREATININE FOR GFR 2.22 MG/DL (0.70-1.30); POTASSIUM SERUM 4.5 MEQ/L (3.5-5.1); TOTAL PROTEIN 5.9 GM/DL (6.4-8.2)
[2019-12-28] MEDS: lamoTRIgine 100MG TAB PO SCH ×2 (08:20→20:42)
[2019-12-28] MEDS: APIXABAN 2.5 MG TAB (ELIQUIS) PO SCH ×2 (08:20→20:41)
[2019-12-28] MEDS: clonazePAM 1 MG TAB PO SCH ×2 (08:20→20:42)
[2019-12-28] MEDS: LITHIUM CARBONATE 150 MG CAP PO SCH ×2 (08:20→20:41)
[2019-12-28] MEDS: HumaLOG INSULIN (NovoLOG) PER UNIT SC SCH ×4 (08:20→20:32)
[2019-12-28] MEDS: OLANZapine 5 MG TAB PO SCH ×3 (08:20→20:42)
[2019-12-28] MEDS: ATORVASTATIN 10 MG TAB PO SCH (08:20)
[2019-12-28] MEDS: haloperidoL 5 MG TAB PO SCH ×2 (08:21→20:42)
[2019-12-28] MEDS: hydrOXYzine 25 MG TAB PO SCH ×2 (08:21→20:42)
[2019-12-28] MEDS: CARVedilol 6.25 MG TAB PO SCH ×2 (08:21→20:43)
[2019-12-28] MEDS: BENZTROPINE 1 MG TAB PO SCH ×2 (08:21→20:42)
[2019-12-28] MEDS: DOCUSATE SODIUM 100 MG CAP PO SCH ×2 (08:21→20:44)
[2019-12-28] MEDS: FERROUS GLUCONATE 324 MG TAB PO SCH (08:21)
[2019-12-28] MEDS: DIMETHICONE 2% OINTMENT(VANIPLY) 70GM TUBE TOP SCH ×2 (08:22→20:48)
[2019-12-28] MEDS: NYSTATIN 100,000 UNITS/GM TOPICAL PWD 15 GM TOP SCH ×2 (08:22→20:44)
[2019-12-28] MEDS: AZELASTINE 137MCG NASAL SPY 30 ML (ASTELIN) SCH ×2 (08:22→20:45)
--- NOTE | 2019-12-28 10:31 | IPN ---
PULMONARY PROGRESS NOTE: DATE OF VISIT: 12/28/2019 I saw Lalito Gerard in the intensive care unit. Patient has been examined and chart is reviewed. His aide is at the bedside. He is asleep. He has nasal cannula oxygen placed. He is sitting somewhat recumbent. No snoring. He is resting comfortably. He easily arouses. Maximum temperature (Tmax) overnight 97.8, blood pressure 120 systolic, heart rate 70-100 with a sinus mechanism, respiratory rate 16-18 and unlabored. White blood cell count 5.1, hemoglobin 10.6, platelet count 165,000. Sodium 144, potassium 4.5, chloride 106, CO2 34, BUN 38, creatinine 2.22. Albumin of 3.0. On exam, he is easily arousable and awake. Pupils reactive. Sclerae are clear. Trachea is midline. Lungs are fairly clear without rhonchus or wheeze. Cardiac exam regular. Peripheral pulses are palpable. Abdomen obese but benign. Extremities again show his cellulitis on the right lower extremity. Neurologically, easily arousable. Moves all extremities. Psychiatric exam is reasonable. IMPRESSION: 1. Acute on chronic hypoxic and hypercapnic respiratory failure. 2. Suspect underlying obstructive sleep apnea (DANIEL). 3. Cellulitis. RECOMMENDATIONS: At this point, he is sleeping comfortably without his bilevel positive airway pressure (BiPAP) placed. He is semi-recumbent. I am told that he does not like wearing it. I think it not unreasonable in view of the above to get a nocturnal oximetry while he is here. If the pattern is reasonable, then we will completely discontinue the BiPAP and follow him clinically. We await the outcome of that exam. For now, we will remove the BiPAP and monitor. Further recommendations will be made in the progress record as new information becomes available.
[2019-12-28] MEDS: CEFTAROLINE FOSAMIL 400 MG in D5W MINI-BAG PLUS 50 ML IV SCH (12:14)
[2019-12-28 15:27] LABS: C REACTIVE PROTEIN QUANTITATIV 1.34 MG/DL (0.00-0.30)
--- NOTE | 2019-12-28 16:02 | IPNPDOC ---
Date Seen The patient was seen on 12/28/19. Progress Note SUBJECTIVE: Awake and more alert this AM. Patient is tolerating using BIPAP with naps, night time. Nocturnal oximetry test ordered with pulmonology following. PT/OT believe patient to be at baseline. Tolerating diet well. Patient denies chest pain, shortness of breath, n/v/d. OBJECTIVE: VITAL SIGNS: Please see below PHYSICAL EXAMINATION: CONSTITUTIONAL: awake, following commands-at baseline EYES: PERRLA, EOM intact HENT, MOUTH: Normocephalic, atraumatic,dry mucous membranes, BIPAP mask in place NECK: SUPPLE, no JVD, no lymphadenopathy, no carotid bruit CV: regular rhythm, S1S2 normal, no murmurs/rubs/gallops RESPIRATORY: Decreased breath sounds bilaterally, mild crackles in bases. No rales/rhonchi/wheezes GI: nontender. BS positive in 4 quadrants, soft, no rebound or guarding, no organomegaly : Deferred MUSCULOSKELETAL: Normal ROM. No cyanosis, clubbing, swelling, joint deformity. INTEGUMENTARY: Multiple excoriation gregory on RLE, some scabbed compared to yesterday, some weeping- overall improving. redness/rash above the right knee/on right thigh- light pink and improved. LLE no redness. NEUROLOGIC: no focal deficits, CN 2-12 not tested LABORATORY DATA: Please see below IMAGING: No new imaging. ASSESSMENT: 64-year-old male who is being treated for acute hypoxic and hypercapnic respiratory failure, right lower extremity cellulitis. PLAN: 1. Acute on chronic hypercapnic respiratory failure likely multifactorial to obesity hypoventilation syndrome, possible DANIEL. Currently saturating well on 2 L nasal cannula. Chronic hypercapnia on ABG. Nocturnal oximetry test ordered. C/w tabletop BIPAP at naps, night. Encouraging to position in upright position during day, HOB >30-45 degress. Duoneb ATC, albuterol PRN. 2. Right lower extremity cellulitis. Completed 7 days IV ceftaroline, transitioned to doxycycline 100 mg PO BID x 5 days. ID following. Wound care. 3. Hx of mental disability/schizoaffective disorder/anxiety/ behavioral issues with aggression. Behavior is stable. Patient has resources representative with him at bedside from his facility. Multiple medications have been decreased, tolerating well and would recommend keeping on decreased dose after discharge. 4. HTN. Controlled. C/w BB again with holding parameters. 5. CKD Stage III. Cr near baseline. F/u daily labs. 6. Iron deficiency anemia. Stable. C/w iron supplement, CBC daily. 7. Hx of DVT. C/w anticoagulation. 8. HLD. C/w statin. 9. Hx of seizure. No seizure-like activity. C/w home medications. 10. GERD. C/w PPI. 11. BPH. C/w finasteride. 12. DM type II. HbA1c 7.5, not on home medications but should be on PO after discharge. C/w ISS, consistent carb diet, AC/HS blood sugar checks. 13. DVT px. Apixiban BID. DISPOSITION: Nocturnal oximetry test needing to be done prior to discharge, as patient may need O2/respiratory support overnight at discharge. Plan is eventually to discharge back to [facility] when medically appropriate. VS, I&O, [facility] Vital Signs/I&O Vital Signs Date Time Temp Pulse Resp B/P (MAP) Pulse Ox O2 Delivery O2 Flow Rate FiO2 12/28/19 15:25 2.0 12/28/19 15:24 97 Nasal Cannula 12/28/19 12:00 98.4 77 19 113/58 (76) 12/27/19 07:53 30 I&O- Last 24 Hours up to 6 AM 12/28/19 06:00 Intake Total 1680 ml Output Total 2150 ml Balance -470 ml Laboratory Data 24H LABS Laboratory Tests 2 12/27/19 16:55: Bedside Glucose (Misc Panel) 215H 12/27/19 20:57: Bedside Glucose (Misc Panel) 135H 12/28/19 05:48: Nucleated Red Blood Cells % (auto) 0.0, Anion Gap 4L, Glomerular Filtration Rate 32.0L, Calcium Level 9.0, Total Bilirubin 0.6, Aspartate Amino Transf (AST/SGOT) 12, Alanine Aminotransferase (ALT/SGPT) 22, Alkaline Phosphatase 106, C-Reactive Protein, Quantitative 1.34H, Total Protein 5.9L, Albumin 3.0L, Albumin/Globulin Ratio 1.03 12/28/19 11:34: Bedside Glucose (Misc Panel) 150H CBC/BMP Laboratory Tests 12/28/19 05:48 Microbiology Microbiology 12/22/19 Respiratory Virus Panel (PCR) (CAROL) - Final, Complete 12/22/19 Blood Culture - Final, Complete NO GROWTH AFTER 5 DAYS 12/22/19 Blood Culture - Final, Complete NO GROWTH AFTER 5 DAYS Current Medications Current Medications Medications (Trade) Dose Ordered Sig/Grant Route PRN Reason Start Time Stop Time Status Last Admin Dose Admin Acetaminophen (Tylenol Tab) 650 mg Q4H PRN PO PAIN OR FEVER 12/22/19 13:45 Albuterol Sulfate (Proventil Neb) 2.5 mg Q6HP PRN NEB SHORTNESS OF BREATH 12/24/19 17:15 Albuterol/ Ipratropium (Duoneb (Ipr 0.5mg/Alb 2.5mg)) 3 ml RQ4H NEB 12/24/19 20:00 12/28/19 15:23 Apixaban (Eliquis) 2.5 mg BID PO 12/22/19 21:00 12/25/19 09:07 DC 12/24/19 09:44 Apixaban (Eliquis) 2.5 mg BID PO 12/25/19 21:00 12/28/19 08:20 Atorvastatin Calcium (Lipitor) 10 mg DAILY PO 12/23/19 09:00 12/28/19 08:20 Azelastine HCl (Astelin) 1 spray BID NA 12/22/19 21:00 12/28/19 08:22 Benztropine Mesylate (Cogentin) 1 mg BID PO 12/22/19 21:00 12/28/19 08:21 Carvedilol (COReg) 6.25 mg BID PO 12/22/19 21:00 12/22/19 14:59 DC Carvedilol (COReg) 6.25 mg BID PO 12/23/19 21:00 12/28/19 08:21 Ceftaroline Fosamil 400 mg/ Dextrose 50 ml @ 50 mls/hr Q12H IV 12/23/19 00:00 12/28/19 15:26 DC 12/28/19 12:14 Ceftaroline Fosamil 600 mg/ Dextrose 50 ml @ 50 mls/hr Q12H IV 12/23/19 00:00 12/22/19 14:25 DC Clonazepam (KlonoPIN) 1 mg BID PO 12/25/19 21:00 12/28/19 08:20 Clonazepam (KlonoPIN) 1 mg TID PO 12/22/19 16:00 12/25/19 16:28 DC 12/24/19 16:31 Dextrose (Dextrose 50%) 25 ml ASDIRECTED PRN IV SEE LABEL COMMENTS 12/24/19 17:45 Dimethicone (Vaniply) 1 dose BID TOP 12/25/19 09:00 12/28/19 08:22 Docusate Sodium (Colace) 200 mg BID PO 12/22/19 21:00 12/28/19 08:21 Doxycycline Hyclate (Vibramycin) 100 mg BID PO 12/28/19 21:00 12/31/19 09:00 Enoxaparin Sodium (Lovenox) 90 mg Q12H SC 12/25/19 09:00 12/25/19 17:02 DC 12/25/19 10:44 Ferrous Gluconate (Fergon) 324 mg DAILY PO 12/23/19 09:00 12/28/19 15:30 DC 12/28/19 08:21 Ferrous Gluconate (Fergon) 324 mg DAILY@1300 PO 12/29/19 13:00 Finasteride (Proscar) 5 mg QHS PO 12/22/19 21:00 12/27/19 20:50 Fluticasone Propionate (Flonase 0.05% Nasal [place]) 2 spray QHS NARES 12/22/19 21:00 12/27/19 20:52 Glucagon (Glucagon) 1 mg ASDIRECTED PRN SC SEE LABEL COMMENTS 12/24/19 17:45 Glucose (Glucose) 16 GM ASDIRECTED PRN PO SEE LABEL COMMENTS 12/24/19 17:45 Haloperidol (Haldol) 2.5 mg BID PO 12/22/19 21:00 12/28/19 08:21 Home Med (Med Rec Complete!) ASDIRECTED XX 12/22/19 13:30 12/22/19 13:23 DC Hydroxyzine HCl (Atarax) 25 mg BID PO 12/25/19 21:00 12/28/19 08:21 Hydroxyzine HCl (Atarax) 25 mg TID PO 12/22/19 16:00 12/25/19 16:28 DC 12/25/19 16:05 Insulin Human Lispro (HumaLOG INSULIN) SEE PROTOCOL TABLE AC [place] 12/25/19 07:30 12/25/19 09:16 DC Insulin Human Lispro (HumaLOG INSULIN) SEE PROTOCOL TABLE Q6H SC 12/25/19 12:00 12/26/19 10:22 DC 12/26/19 05:42 Insulin Human Lispro (HumaLOG INSULIN) SEE PROTOCOL TABLE QHS SC 12/24/19 21:00 12/25/19 09:16 DC Insulin Human Lispro (HumaLOG INSULIN) See Protocol Table AC [place] 12/26/19 12:00 12/28/19 12:14 Insulin Human Lispro (HumaLOG INSULIN) See Protocol Table QHS SC 12/26/19 21:00 Lamotrigine (LaMICtal) 200 mg BID PO 12/22/19 21:00 12/28/19 08:20 [place] Carbonate ([place] Carbonate) 150 mg BID PO 12/22/19 21:00 12/28/19 08:20 Miscellaneous (Unresolved Clarification Entry) SEE LABEL COMMENTS DAILY XX 12/27/19 09:00 12/27/19 10:54 DC Multivitamins (Theragram-M) 1 tab QHS PO 12/22/19 21:00 12/28/19 15:29 DC 12/27/19 20:51 Multivitamins (Theragram-M) 1 tab QPM@1800 PO 12/28/19 18:00 Nystatin (Mycostatin Powder, Nystop) 1 dose BID TOP 12/22/19 21:00 12/28/19 08:22 Olanzapine (ZyPREXA) 5 mg BID@0900,1600 PO 12/26/19 09:00 12/28/19 08:20 Olanzapine (ZyPREXA) 5 mg QHS PO 12/25/19 21:00 12/27/19 20:50 Olanzapine (ZyPREXA) 5 mg TID@0800,1200,1600 PO 12/22/19 16:00 12/25/19 16:28 DC 12/25/19 16:04 Olanzapine (ZyPREXA) 10 mg QHS PO 12/22/19 21:00 12/25/19 16:28 DC 12/24/19 19:56 Omeprazole (PriLOSEC) 40 mg DAILY PO 12/23/19 09:00 12/25/19 09:16 DC 12/24/19 09:45 Sodium Chloride 1,000 ml @ 80 mls/hr [id number] IV 12/22/19 13:45 12/24/19 08:29 DC 12/23/19 15:44 Sodium Chloride 1,000 ml @ 150 mls/hr Q6H40M IV 12/22/19 11:30 12/22/19 14:04 DC 12/22/19 11:54 Allergies Coded Allergies: NSAIDS (Non-Steroidal Anti-Inflamma (Verified Adverse Reaction, Intermedi ate, GERD , LIVER ISSUES, 02/18/19) Kristal Garcia MD December 28, 2019 16:02
[2019-12-28] MEDS: MULTIVITAMINS/MINERALS THERAP 1 TAB PO SCH (16:46)
[2019-12-28] MEDS: DOXYCYCLINE HYCLATE 100MG TABLET PO SCH (20:42)
[2019-12-28] MEDS: FINASTERIDE 5 MG TAB PO SCH (20:42)
[2019-12-28] MEDS: FLUTICASONE PROP 0.05% NASAL SPRAY 16 GM (FLONASE) NARES SCH (20:45)
[2019-12-29] VITALS: BP 117/65
--- NOTE | 2019-12-29 | IPN ---
DATE: 12/28/2019 Lalito is doing well. He is a little irritable this afternoon and states he wants to go home. He does not want to wear his oxygen. He does not want too much cream placed on his leg even though it is itchy, and he has been scratching. He remains afebrile with a temperature of 98.4. He has not had fever in 5 days, pulse 77, respirations 19, blood pressure 113/58, oxygen saturation (O2 sat) 97% on 2 liters nasal cannula. Heart: Normal S1, S2. No murmurs. Lungs: Clear. No wheezes, rales or rhonchi. Abdomen: Obese, soft, nontender. Extremities: No edema. Right leg with erythema from the ankle all the way to the midthigh has markedly improved. He has scratch gregory on the bottom of the leg with dry skin. Moisturizer was placed while we were in the room. Genitourinary (): He has a Sánchez catheter for urinary retention after he had mental status changes. We will attempt to remove his Sánchez catheter. LABS: White count is 5.1, hemoglobin 10.6, hematocrit 34.8, platelets 165. Sodium 144, potassium 4.5, chloride 106, bicarbonate 34, BUN 38, creatinine 2.22, glucose 140, calcium 9, total bilirubin 0.6, AST 12, ALT 22, alkaline phosphatase 106, CRP 1.34, total protein 5.9, albumin 3. IMPRESSION: 1. Right lower extremity cellulitis. Blood cultures were negative. The patient was treated with IV ceftaroline, currently day #7. This will be discontinued. He will be switched to oral doxycycline 100 mg twice a day for 3 more days to finish a 10-day course. 2. 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 Would recommend using Hibiclens body wash daily for 3 days, then every other day as an outpatient and mupirocin cream intranasally for 3 days in axilla, groin and intranasally for decolonization. 3. History of deep vein thrombosis (DVT) right lower extremity with lymphedema. Patient at risk of recurrent infection. 4. Venous stasis changes with chronic excoriation. Would recommend moisturizer of lower extremities. 5. Urinary retention. The patient has a Sánchez catheter, which needs to be discontinued. PLAN: Discontinue IV ceftaroline, start doxycycline 100 mg by mouth twice a day with end of treatment being 12/31/2019. Hibiclens body wash daily for 3 days, then every other day for a month and mupirocin cream intranasally, and axilla and groin area. Followup at Dr. Ward's office in 2-3 weeks.
[2019-12-29 04:00] VITALS: BP 112/64
[2019-12-29] MEDS: IPRATROPIUM 0.5MG/ALBUTEROL 2.5MG INH SOL UD 3ML (DUONEB)(J7620) NEB SCH ×6 (04:00→23:11)
[2019-12-29 05:48] LABS: HEMATOCRIT 35.6 % (42.0-52.0); HEMOGLOBIN 10.6 g/dl (13.5-17.5); MEAN CORPUSCULAR HEMOGLOBIN 29.4 pg (27.0-33.0); MEAN CORPUSCULAR HGB CONC 29.8 g/dl (32.0-36.5); MEAN CORPUSCULAR VOLUME 98.9 fl (80.0-96.0); PLATELET COUNT, AUTOMATED 168 10^3/uL (150-450); WHITE BLOOD COUNT 6.1 10^3/uL (4.0-10.0)
[2019-12-29 06:19] LABS: ALBUMIN 3.1 GM/DL (3.2-5.2); BILIRUBIN,TOTAL 0.5 MG/DL (0.2-1.0); CALCIUM LEVEL 8.9 MG/DL (8.8-10.2); CREATININE FOR GFR 2.16 MG/DL (0.70-1.30); POTASSIUM SERUM 4.5 MEQ/L (3.5-5.1); TOTAL PROTEIN 6.3 GM/DL (6.4-8.2)
[2019-12-29 08:00] VITALS: BP 156/94
[2019-12-29] MEDS: HumaLOG INSULIN (NovoLOG) PER UNIT SC SCH ×4 (08:44→20:41)
[2019-12-29] MEDS: DOXYCYCLINE HYCLATE 100MG TABLET PO SCH ×2 (08:45→20:15)
[2019-12-29] MEDS: LITHIUM CARBONATE 150 MG CAP PO SCH ×2 (08:45→20:58)
[2019-12-29] MEDS: BENZTROPINE 1 MG TAB PO SCH ×2 (08:45→20:58)
[2019-12-29] MEDS: APIXABAN 2.5 MG TAB (ELIQUIS) PO SCH ×2 (08:45→20:14)
[2019-12-29] MEDS: clonazePAM 1 MG TAB PO SCH ×2 (08:45→20:58)
[2019-12-29] MEDS: DOCUSATE SODIUM 100 MG CAP PO SCH ×2 (08:45→20:15)
[2019-12-29] MEDS: lamoTRIgine 100MG TAB PO SCH ×2 (08:45→20:15)
[2019-12-29] MEDS: hydrOXYzine 25 MG TAB PO SCH ×2 (08:45→20:15)
[2019-12-29] MEDS: haloperidoL 5 MG TAB PO SCH ×2 (08:45→21:02)
[2019-12-29] MEDS: OLANZapine 5 MG TAB PO SCH ×3 (08:45→20:15)
[2019-12-29] MEDS: ATORVASTATIN 10 MG TAB PO SCH (08:45)
[2019-12-29] MEDS: NYSTATIN 100,000 UNITS/GM TOPICAL PWD 15 GM TOP SCH ×2 (08:46→20:58)
[2019-12-29] MEDS: CARVedilol 6.25 MG TAB PO SCH ×2 (08:46→20:18)
[2019-12-29] MEDS: DIMETHICONE 2% OINTMENT(VANIPLY) 70GM TUBE TOP SCH ×2 (08:47→20:59)
[2019-12-29] MEDS: AZELASTINE 137MCG NASAL SPY 30 ML (ASTELIN) SCH ×2 (08:47→20:58)
--- NOTE | 2019-12-29 09:32 | NOCOX ---
DATE OF PROCEDURE: 12/28/2019 to 12/29/2019 ORDERED BY: Dr. Webber The study is performed on 2 liters nasal cannula. Study of excellent technical quality. Mean oxygen saturation was 94.8%. Lowest reliably recorded oxygen saturation was above 91%. It should be noted that this is done on 2 liters nasal cannula. No significant variability suggesting obstructive sleep apnea is identified. Again, the study is done on supplemental oxygen. One episode at approximately 0455 to 0510 does show an area of desaturation, but this will need to be correlated clinically. IMPRESSION: Borderline nocturnal oximetry on 2 liters. Please correlate clinically.
--- NOTE | 2019-12-29 10:29 | IPN ---
DATE: 12/29/2019 The patient has been examined and the chart was reviewed. I spoke with the aide at the bedside. Maximum temperature (T-max) overnight 98.4, blood pressure 112 to 150 systolic. Heart rate generally in the 70s-80s, respiratory rate in the teens without accessory muscle use. He has been able to be weaned to room air. Nocturnal oxymetry done last evening on 2 liters shows only one area of desaturation but stays above 90 and we will repeat this on room air. On exam, he is awake, alert, and appropriate. Says he is comfortable. Anxious to go home. Pupils react, sclerae clear. Trachea is in the midline. Chest clear to auscultation and percussion and symmetric. No other focal adventitious breath sounds are identified. Cardiac exam regular rate with no gallop. Peripheral pulses are palpable. Still some lower extremity edema. Abdomen obese, soft, with active bowel sounds. Extremities show improvement in his cellulitis of the right lower extremity with some chronic venous stasis changes. Excoriations are healing. Neurologically, he is awake and interactive. IMPRESSION: 1. Acute on chronic respiratory failure. 2. Obstructive sleep apnea suspected. RECOMMENDATION: At this point will check a nocturnal oximetry in room air. If there is suggestion of underlying obstructive sleep apnea, then certainly we can consider outpatient evaluation to see if he qualifies for pressure therapy. The question will really be will he cooperative with not only the exam but with therapy if needed and we will cross that bridge as we come to it. Otherwise, therapy regarding his cellulitis is being managed through primary service and infectious diseases. Further recommendations will be made in the progress records as new information becomes available.
--- NOTE | 2019-12-29 11:10 | IPNPDOC ---
Subjective Date Seen The patient was seen on 12/29/19. Subjective Chief Complaint/HPI Patient is comfortable in no distress. Offers no new complaints Constitutional: Denies: Chills, Fever, Malaise, Night Sweats, Weakness, Fatigue, Weight Loss, Lethargy, Other Pulmonary: Denies: Dyspnea, Cough, Pleuritic Chest Pain, Other Symptoms Cardiovascular: Denies: Chest Pain, Palpitations, Orthopnea, Paroxysmal Noc. Dyspnea, Edema, Lt Headedness, Other Symptoms Gastrointestinal: Denies: Nausea, Vomiting, Abdominal Pain, Diarrhea, Constipation, Melena, Hematochezia, Other Symptoms Musculoskeletal: Denies: Neck Pain, Back Pain, Shoulder Pain, Arm Pain, Hand Pain, Leg Pain, Foot Pain, Joint Pain, Muscle Pain, Spasms, Other Symptoms Objective Physical Examination General Exam: Positive: Alert, Cooperative Eye Exam: Positive: PERRLA, Conjunctiva & lids normal ENT Exam: Positive: Atraumatic Chest Exam: Positive: Clear to auscultation, Normal air movement Heart Exam: Positive: Rate Normal, Normal S1, Normal S2 Abdomen Exam: Positive: Normal bowel sounds, Soft Skin Exam: Positive: Nl turgor and temperature Assessment /Plan Problems (1) Acute and chronic respiratory failure with hypercapnia Status: Acute Problem Text: Acute on chronic hypercapnic respiratory failure likely multifactorial to obesity hypoventilation syndrome, possible DANIEL. Currently s aturating well on 2 L nasal cannula. Chronic hypercapnia on ABG. Nocturnal oximetry test ordered. Continue tabletop BIPAP at naps, night. Encouraging to position in upright position during day, HOB >30-45 degress. Duoneb ATC, albuterol PRN. Pulmonary critical care follow-up noted and appreciated (2) Cellulitis of right lower extremity Status: Acute Problem Text: Right lower extremity cellulitis. Completed 7 days IV ceftaroline, transitioned to doxycycline 100 mg PO BID until 12/31/2019. Follow with ID and wound care as an outpatient once discharged (3) CKD (chronic kidney disease), stage III Status: Chronic Problem Text: Stable continue home meds (4) COPD exacerbation Status: Chronic Problem Text: Stable continue home meds (5) HLD (hyperlipidemia) Status: Chronic Problem Text: Stable continue home meds (6) HTN (hypertension) Status: Chronic Problem Text: Stable continue home meds Plan/VTE VTE Prophylaxis Ordered?: Yes VS, I&O, 24H, Fishbone Vital Signs/I&O Vital Signs Date Time Temp Pulse Resp B/P (MAP) Pulse Ox O2 Delivery O2 Flow Rate FiO2 12/29/19 08:46 74 156/94 12/29/19 08:00 97.7 17 97 Nasal Cannula 2.0 12/27/19 07:53 30 I&O- Last 24 Hours up to 6 AM 12/29/19 06:00 Intake Total 1660 ml Output Total 5075 ml Balance -3415 ml Laboratory Data 24H LABS Laboratory Tests 2 12/28/19 11:34: Bedside Glucose (Misc Panel) 150H 12/28/19 16:31: Bedside Glucose (Misc Panel) 110 12/28/19 20:28: Bedside Glucose (Misc Panel) 211H 12/29/19 05:29: Nucleated Red Blood Cells % (auto) 0.0, Anion Gap 4L, Glomerular Filtration Rate 33.0L, Calcium Level 8.9, Total Bilirubin 0.5, Aspartate Amino Transf (AST/SGOT) 22, Alanine Aminotransferase (ALT/SGPT) 31, Alkaline Phosphatase 110, Total Protein 6.3L, Albumin 3.1L, Albumin/Globulin Ratio 0.97L CBC/BMP Laboratory Tests 12/29/19 05:29 Microbiology Microbiology 12/22/19 Respiratory Virus Panel (PCR) (CAROL) - Final, Complete 12/22/19 Blood Culture - Final, Complete NO GROWTH AFTER 5 DAYS 12/22/19 Blood Culture - Final, Complete NO GROWTH AFTER 5 DAYS LIOR WORTHINGTON MD December 29, 2019 11:10
[2019-12-29] MEDS: FERROUS GLUCONATE 324 MG TAB PO SCH (12:37)
[2019-12-29 12:57] VITALS: BP 120/75
[2019-12-29] MEDS: MULTIVITAMINS/MINERALS THERAP 1 TAB PO SCH (17:12)
[2019-12-29] MEDS: FINASTERIDE 5 MG TAB PO SCH (20:15)
[2019-12-29] MEDS: FLUTICASONE PROP 0.05% NASAL SPRAY 16 GM (FLONASE) NARES SCH (20:58)
[2019-12-29 22:00] VITALS: BP 120/75
[2019-12-30] MEDS: IPRATROPIUM 0.5MG/ALBUTEROL 2.5MG INH SOL UD 3ML (DUONEB)(J7620) NEB SCH ×3 (04:00→11:11)
[2019-12-30 06:00] VITALS: BP 118/74
[2019-12-30] MEDS: NYSTATIN 100,000 UNITS/GM TOPICAL PWD 15 GM TOP SCH (09:09)
[2019-12-30] MEDS: AZELASTINE 137MCG NASAL SPY 30 ML (ASTELIN) SCH (09:09)
[2019-12-30] MEDS: HumaLOG INSULIN (NovoLOG) PER UNIT SC SCH ×2 (09:09→12:10)
[2019-12-30] MEDS: DIMETHICONE 2% OINTMENT(VANIPLY) 70GM TUBE TOP SCH (09:09)
[2019-12-30] MEDS: clonazePAM 1 MG TAB PO SCH (09:10)
[2019-12-30] MEDS: LITHIUM CARBONATE 150 MG CAP PO SCH (09:10)
[2019-12-30] MEDS: ATORVASTATIN 10 MG TAB PO SCH (09:10)
[2019-12-30] MEDS: APIXABAN 2.5 MG TAB (ELIQUIS) PO SCH (09:10)
[2019-12-30] MEDS: hydrOXYzine 25 MG TAB PO SCH (09:10)
[2019-12-30] MEDS: BENZTROPINE 1 MG TAB PO SCH (09:10)
[2019-12-30] MEDS: DOXYCYCLINE HYCLATE 100MG TABLET PO SCH (09:10)
[2019-12-30] MEDS: OLANZapine 5 MG TAB PO SCH (09:10)
[2019-12-30] MEDS: DOCUSATE SODIUM 100 MG CAP PO SCH (09:10)
[2019-12-30] MEDS: lamoTRIgine 100MG TAB PO SCH (09:10)
[2019-12-30] MEDS: haloperidoL 5 MG TAB PO SCH (09:11)
[2019-12-30 09:12] VITALS: BP 132/83
[2019-12-30] MEDS: CARVedilol 6.25 MG TAB PO SCH (09:12)
--- NOTE | 2019-12-30 10:09 | IPNPDOC ---
Subjective Date Seen The patient was seen on 12/30/19. Subjective Chief Complaint/HPI Patient is comfortable in no distress. Wants to go back home General: Denies: ROS Unobtainable, Chills, Night Sweats, Fatigue, Malaise, Normal Appetite, Other Symptoms Constitutional: Denies: Chills, Fever, Malaise, Night Sweats, Weakness, Fatigue, Weight Loss, Lethargy, Other Pulmonary: Denies: Dyspnea, Cough, Pleuritic Chest Pain, Other Symptoms Cardiovascular: Denies: Chest Pain, Palpitations, Orthopnea, Paroxysmal Noc. Dyspnea, Edema, Lt Headedness, Other Symptoms Gastrointestinal: Denies: Nausea, Vomiting, Abdominal Pain, Diarrhea, Constipation, Melena, Hematochezia, Other Symptoms Musculoskeletal: Denies: Neck Pain, Back Pain, Shoulder Pain, Arm Pain, Hand Pain, Leg Pain, Foot Pain, Joint Pain, Muscle Pain, Spasms, Other Symptoms Neurological: Denies: Weakness, Numbness, Incoordination, Change in speech, Confusion, Seizures, Other Symptoms Objective Physical Examination General Exam: Positive: Alert, Cooperative Eye Exam: Positive: PERRLA, Conjunctiva & lids normal ENT Exam: Positive: Atraumatic Chest Exam: Positive: Clear to auscultation, Normal air movement Heart Exam: Positive: Rate Normal, Normal S1, Normal S2 Abdomen Exam: Positive: Normal bowel sounds, Soft Skin Exam: Positive: Nl turgor and temperature Assessment /Plan Problems (1) Acute and chronic respiratory failure with hypercapnia Status: Acute Problem Text: Acute on chronic hypercapnic respiratory failure likely multifactorial to obesity hypoventilation syndrome, possible DANIEL. Currently saturating well on 2 L nasal cannula. Chronic hypercapnia on ABG. Nocturnal oximetry test ordered. Continue tabletop BIPAP at naps, night. Encouraging to position in upright position during day, HOB >30-45 degress. Duoneb ATC, albuterol PRN. Pulmonary critical care follow-up noted and appreciated Patient is clinically stable and ready to be discharged home once the DC arrangements are made (2) Cellulitis of right lower extremity Status: Acute Problem Text: Right lower extremity cellulitis. Completed 7 days IV ceftaroline, transitioned to doxycycline 100 mg PO BID until 12/31/2019. Follow with ID and wound care as an outpatient once discharged (3) CKD (chronic kidney disease), stage III Status: Chronic Problem Text: Stable continue home meds (4) COPD exacerbation Status: Chronic Problem Text: Stable continue home meds (5) HLD (hyperlipidemia) Status: Chronic Problem Text: Stable continue home meds (6) HTN (hypertension) Status: Chronic Problem Text: Stable continue home meds Plan/VTE VTE Prophylaxis Ordered?: Yes VS, I&O, 24H, Fishbone Vital Signs/I&O Vital Signs Date Time Temp Pulse Resp B/P (MAP) Pulse Ox O2 Delivery O2 Flow Rate FiO2 12/30/19 09:12 89 132/83 12/30/19 06:00 98.0 20 96 12/29/19 22:00 Room Air 12/29/19 08:00 2.0 12/27/19 07:53 30 I&O- Last 24 Hours up to 6 AM 12/30/19 06:00 Intake Total 3156 ml Output Total 2100 ml Balance 1056 ml Laboratory Data 24H LABS Laboratory Tests 2 12/29/19 11:50: Bedside Glucose (Misc Panel) 195H 12/29/19 16:38: Bedside Glucose (Misc Panel) 164H 12/30/19 08:35: Bedside Glucose (Misc Panel) 176H Microbiology Microbiology 12/22/19 Respiratory Virus Panel (PCR) (CAROL) - Final, Complete 12/22/19 Blood Culture - Final, Complete NO GROWTH AFTER 5 DAYS 12/22/19 Blood Culture - Final, Complete NO GROWTH AFTER 5 DAYS LIOR WORTHINGTON MD December 30, 2019 10:08
--- NOTE | 2019-12-30 10:32 | NOCOX ---
DATE OF STUDY: Done the night of 12/29/2019 and the morning of 12/30/2019 ORDERING PROVIDER: The study was performed on room air. The oxygen saturation for the study 87%. Lowest reliably recorded oxygen saturation 74% briefly. One element of the saturation occurred at about 0140. This appeared to last about 15 minutes, but then the patient removed the probe. Oxygen saturation did remain less than 88% for greater than 5 minutes, therefore, qualifying the patient for supplemental oxygen. His previous study done on 2 liters shows that that should be sufficient. Please correlate clinically.
[2019-12-30] MEDS: FERROUS GLUCONATE 324 MG TAB PO SCH (12:10)
--- NOTE | 2019-12-30 13:15 | IPN ---
DATE: 12/29/2019 Lalito is doing well. He has no complaints. He just wants magazines. He is getting an overnight oxygen study before his discharge. He has had no fever or chills. No nausea, vomiting or diarrhea. He walks to the bathroom without discomfort. Labs: White count is 6.1, hemoglobin 10.6, hematocrit 35.6, platelets 168. Sodium 142, potassium 4.5, chloride 104, bicarb 34, BUN 37, creatinine 2.16, glucose 125, calcium 8.9, CRP 1.34, total protein 6.3, albumin 3.1. Temperature is 97.5, pulse 82, respirations 19, blood pressure 120/75, O2 sat 91% on 2 liters nasal cannula. Right leg erythema below the knee with dry skin extending all the way to the mid thigh. Erythema has markedly decreased. There is no tenderness. Mild warmth. IMPRESSION: 1. Right lower extremity cellulitis. Currently on p.o. doxycycline. Doing well. End of treatment will be 12/31/2019. 2. History of methicillin-resistant Staphylococcus aureus (MRSA) colonization with positive PCR. Would recommend Hibiclens body wash daily for 3 days and then every other day for a month along with Mupirocin cream intranasally groin, and axilla for decolonization purposes, hopefully decreasing the number of recurrent infections. PLAN: Infectious disease signing off.
[2019-12-30] MEDS ORDERED: DOXY100T PO (13:47)
[2019-12-30] MEDS ORDERED: HIBI4LIQ EX (13:49)
[2019-12-30] MEDS ORDERED: MUPI30CR TOP (13:49)
--- NOTE | 2019-12-30 13:55 | DS.PDOC ---
Discharge Summary General Date of Admission December 22, 2019 at 13:33 Date of Discharge 12/30/19 Discharge Summary PROCEDURES PERFORMED DURING STAY: None. ADMITTING DIAGNOSES: 1. Cellulitis right lower extremity. DISCHARGE DIAGNOSES: 1. Cellulitis of right lower extremity, hypertension, iron deficiency anemia, CK D stage III, femoral vein thromboses, GERD, seizure disorder, diabetes mellitus type 2, schizoaffective disorder, anxiety, mental retardation, secondary hyperparathyroidism. COMPLICATIONS/CHIEF COMPLAINT: Cellulitis Of Right Leg. 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 The patient is a poor historian and most of the information was given to us by the guest experience representative from the home and ER notes. There was reports of sudden onset of fever, increased weakness, lethargy, decreased appetite, substernal chest pain described as sharp, intermittent, 4-5/10, resolved on its own. The pain was not associated with activity or a particular activity. The patient denied nausea, vomiting, shortness of breath, recent sick contacts. The patient has a history of recurrent right lower extremity cellulitis and is on chronic antibiotic treatment, he's had multiple hospitalizations in the past. According to staff his right lower extremity has looked increasingly red and has become more warm to touch over the past several days. He also follows with self pay specialist outside of the hospital. In the ER, VS showed temperature 102.8, pulse 962212, blood pressure 121/80, O2 sat 96% on room air. Patient appeared diaphoretic, denied chest pain on exam. Trop neg, ECG showed sinus tachycardia with possible anterior RI of indeterminate age, old probably RI inferior- all similar to prior ECG on file from 10/27/2019. Right lower extremity was red, warm, slightly tender to touch. He had chronic skin changes below the knee; however, above the right knee there appeared to be new areas of cellulitis developing extending into the groin. There was no redness in the groin or in the genital area. Chest x-ray showed cardiomegaly, possibility of mild interstitial edema. PA and lateral views of the chest were recommended. Doppler RLE showed no evidence of deep venous thrombosis of the right lower extremity femoral popliteal venous system. WBC 17K, LA elevated at 2.6, COVID neg. Cr 2.48, baseline Cr 1.95-2.5. He was started on IVFs and given IV ceftaroline x 1 dose. Patient showed little improvement in VS and remained lethargic. He was admitted for recurrent RLE cellulitis, sepsis. . HOSPITAL COURSE: Patient was admitted with the diagnosis of acute on chronic hypercapnic respiratory failure and was also found to be chronic hypercapnia on blood gases Acute on chronic hypercapnic respiratory failure likely multifactorial to obesit hypoventilation syndrome, possible DANIEL. Currently saturating well on 2 L nasal cannula. Patient was started on nebulizer treatment as well as tabletop BiPAP was continued on naps and nights Patient was kept in upright position during day, HOB >30-45 degress. Duoneb ATC, albuterol PRN. Pulmonary and critical care were as well involving the patient's care Initially he was started on IV antibiotics would but O on switched to by mouth doxycycline and his last dose will be tomorrow And has been cleared by physical therapy as well as ID and pulmonary and will be discharged home today on all his current medications, along with recommendations from ID for shower with hibiclens and applying mupirocin Far chronic disturbance infection to prevent any further recurrences and continue his doxycycline 2 more days Patient advised to follow with his PMD in 1 week . DISCHARGE MEDICATIONS: Please see below. ALLERGIES: Please see below. PHYSICAL EXAMINATION ON DISCHARGE: VITAL SIGNS: Please see below. GENERAL: Within normal limits HEENT: PERRLA. Extraocular muscles intact NECK: Supple CARDIOVASCULAR EXAMINATION: S1, S2, regular RESPIRATORY EXAMINATION: Clear to A&P ABDOMINAL EXAMINATION: , Soft, nontender, bowel sound present EXTREMITIES: No clubbing, cyanosis, edema SKIN: Normal NEUROLOGICAL EXAMINATION: . No focal motor sensory deficit PSYCHIATRIC EXAMINATION: Normal LABORATORY DATA: Please see below. IMAGING: Chest x-ray:Impression: No focal consolidation or effusion. Stable cardiomegaly. PROGNOSIS: Good ACTIVITY: As tolerated. DIET: As tolerated DISCHARGE PLAN: Discharged back to [facility] DISPOSITION: To [facility]. DISCHARGE INSTRUCTIONS: 1. As per discharge instructions. ITEMS TO FOLLOWUP ON ON OUTPATIENT: 1. Follow with PCP in one week. DISCHARGE CONDITION: Stable. TIME SPENT ON DISCHARGE: 35 minutes. Vital Signs/I&Os Vital Signs Date Time Temp Pulse Resp B/P (MAP) Pulse Ox O2 Delivery O2 Flow Rate FiO2 12/30/19 09:12 89 132/83 12/30/19 06:00 98.0 20 96 12/29/19 22:00 Room Air 12/29/19 08:00 2.0 12/27/19 07:53 30 I&O- Last 24 Hours up to 6 AM 12/30/19 06:00 Intake Total 3156 ml Output Total 2100 ml Balance 1056 ml Laboratory Data Labs 24H Laboratory Tests 2 12/29/19 16:38: Bedside Glucose (Misc Panel) 164H 12/29/19 20:39: Bedside Glucose (Misc Panel) 245H 12/30/19 08:35: Bedside Glucose (Misc Panel) 176H 12/30/19 11:58: Bedside Glucose (Misc Panel) 118H FSBS Laboratory Tests Test 12/29/19 16:38 12/29/19 20:39 12/30/19 08:35 12/30/19 11:58 Range/Units Bedside Glucose (Misc Panel) 164 245 176 118 80-115 MG/DL Microbiology Microbiology 12/22/19 Respiratory Virus Panel (PCR) (CAROL) - Final, Complete 12/22/19 Blood Culture - Final, Complete NO GROWTH AFTER 5 DAYS 12/22/19 Blood Culture - Final, Complete NO GROWTH AFTER 5 DAYS Discharge Medications Scheduled Apixaban (Eliquis) 2.5 Mg Tab, 2.5 MG PO BID, (Reported) Atorvastatin Calcium (Atorvastatin Calcium) 10 Mg Tablet, 10 MG PO DAILY, (Reported) Azelastine HCl (Azelastine HCl) 0.1 % Spr, 1 SPRAY NA BID, (Reported) Benztropine Mesylate (Benztropine Mesylate) 1 Mg Tab, 1 MG PO BID, (Reported) Calcitriol (Rocaltrol) 0.25 Mcg Cap, 0.25 MCG PO 5XW, (Reported) SATURDAY-SATURDAY Carvedilol (Carvedilol) 6.25 Mg Tab, 6.25 MG PO BID, (Reported) Chlorhexidine Gluconate (Hibiclens) 118 Ml Liquid, 4 % EX ASDIRECTED Clonazepam (Clonazepam) 1 Mg Tab, 1 MG PO TID, (Reported) 0800/1600/QHS Docusate Sodium (Colace) 100 Mg Capsule, 200 MG PO BID, (Reported) Doxycycline Hyclate (Doxycycline Hyclate) 100 Mg Tablet, 100 MG PO BID Ferrous Gluconate (Ferrous Gluconate) 324 Mg Tab, 324 MG PO DAILY, (Reported) Finasteride (Finasteride) 5 Mg Tablet, 5 MG PO QHS, (Reported) Fluticasone Propionate (Flonase Allergy Relief) 9.9 Ml [place].susp, 2 SPRAY NARES QHS, (Reported) Haloperidol (Haloperidol) 5 Mg Tablet, 2.5 MG PO BID, (Reported) Hydroxyzine HCl (Hydroxyzine HCl) 25 Mg Tablet, 25 MG PO TID, (Reported) Lamotrigine (Lamictal) 200 Mg Tablet, 200 MG PO BID, (Reported) [place] Carbonate ([place] Carbonate) 150 Mg Cap, 150 MG PO BID, (Reported) Multivitamins (Thera M Plus Tablet) 1 Tab Tab, 1 TAB PO QHS, (Reported) Mupirocin (Mupirocin) 30 Gm Cream..g., 1 APLCT TOP ASDIRECTED Nystatin (Nystatin Powder) 100,000 Unit/Gm Pow, 1 DOSE TOP BID, (Reported) APPLY BETWEEN TOES Olanzapine (Zyprexa) 5 Mg Tab, 5 MG PO TID, (Reported) AM/NOON/1600 Olanzapine (Olanzapine) 5 Mg Tablet, 10 MG PO QHS, (Reported) Omeprazole (Omeprazole) 40 Mg Cap, 40 MG PO DAILY, (Reported) Allergies Coded Allergies: NSAIDS (Non-Steroidal Anti-Inflamma (Verified Adverse Reaction, Intermediate, GERD , LIVER ISSUES, 02/18/19) LIOR WORTHINGTON MD December 30, 2019 13:55
[2019-12-30 14:00] VITALS: BP_SYST 121; BP_SYST 132; BP_DIAS 61; BP_DIAS 83
== END 2019-12-30 14:50 | disposition home or self-care (01) | DRG 871 ==
LOC: EDBD 09:40 → M ED 09:40 → M PCU 13:33 → ENRESERV 13:52 → M PCU 14:32 → M ICU 12-24 18:50 → M PCU 12-27 10:37 → M MSPAV 12-29 12:53
PROVIDERS: ADMIT Internal Medicine; ATTEND Internal Medicine
DX: A41.9 Sepsis, unspecified organism (principal); J96.21 Acute and chronic respiratory failure with hypoxia; J96.22 Acute and chronic respiratory failure with hypercapnia; N25.81 Secondary hyperparathyroidism of renal origin; L03.115 Cellulitis of right lower limb; E87.2 Acidosis; J44.1 Chronic obstructive pulmonary disease with (acute) exacerbation; E66.9 Obesity, unspecified; G47.33 Obstructive sleep apnea (adult) (pediatric); I12.9 Hypertensive chronic kidney disease with stage 1 through stage 4 chronic kidney disease, or unspecified chronic kidney disease; D50.9 Iron deficiency anemia, unspecified; N40.0 Benign prostatic hyperplasia without lower urinary tract symptoms; N18.3 Chronic kidney disease, stage 3 (moderate); G40.909 Epilepsy, unspecified, not intractable, without status epilepticus; F41.9 Anxiety disorder, unspecified; I89.0 Lymphedema, not elsewhere classified; F79 Unspecified intellectual disabilities; E78.5 Hyperlipidemia, unspecified; K21.9 Gastro-esophageal reflux disease without esophagitis; E11.22 Type 2 diabetes mellitus with diabetic chronic kidney disease; F25.9 Schizoaffective disorder, unspecified; I87.2 Venous insufficiency (chronic) (peripheral); F17.210 Nicotine dependence, cigarettes, uncomplicated; R07.89 Other chest pain; Z86.718 Personal history of other venous thrombosis and embolism; Z79.01 Long term (current) use of anticoagulants; Z79.899 Other long term (current) drug therapy; Z88.6 Allergy status to analgesic agent; Z86.14 Personal history of Methicillin resistant Staphylococcus aureus infection; Z68.36 Body mass index [BMI] 36.0-36.9, adult

== ENCOUNTER → 2020-02-01 | Outpatient (CLI) | payer MEDICARE, MEDICAID ==
[~2020-02-01] MED LIST changes: -COUM7.5T PO; +COUM7.5T6 PO; +HIBI4LIQ EX; +MUPI30CR TOP
--- NOTE | 2020-02-01 15:31 | REP ---
REASON FOR EXAM: Followup right middle lobe nodules and bilateral lung base opacities. COMPARISON: Chest CT 10/27/2019, the latest prior along with other older CT examinations of the chest. Next latest prior 10/10/2018. The lack of intravenous contrast decreases the sensitivity of the exam. The mediastinum and pulmonary lesly are unchanged. There is no evidence of a gross mass or adenopathy. There are no pleural or pericardial effusions. There is no change in the appearance of the imaged upper abdomen or imaged osseous structures. Evaluation of the lung alexandre show significant respiratory motion artifact obscuring all the detail. The nodules seen previously in the right middle lobe have either resolved or significantly improved. Scattered bibasilar opacities with air bronchograms seen on the prior examination have resolved. There are no new abnormal nodules, masses or opacities. IMPRESSION: Improved findings with exam limitations as described above. Electronically Signed by Terrell Dickson DO 02/01/2020 04:14 P
== END ==
LOC: M RAD 13:27
PROVIDERS: ATTEND Internal Medicine Pulmonary Disease
DX: R91.8 Other nonspecific abnormal finding of lung field (principal)

== ENCOUNTER → 2020-02-11 | Outpatient (REF) | payer MEDICARE, MEDICAID | LOC: M SFHCPLAZ 16:45 | PROVIDERS: ATTEND Internal Medicine Infectious Disease | DX: L03.115 Cellulitis of right lower limb (principal) | CPT/HCPCS: 87070; 87077; 87186; 87205; G0463 ==

== ENCOUNTER 2020-03-25 08:40 | Inpatient (IN) | payer MEDICARE, MEDICAID ==
[~2020-03-25 08:40] MED LIST changes: +AZELASTINE 137MCG NASAL SPY 30 ML (ASTELIN) ONE; +BENZTROPINE 1 MG TAB ONE; +FLUTICASONE PROP 0.05% NASAL SPRAY 16 GM (FLONASE) ONE; +LITHIUM CARBONATE 150 MG CAP ONE; +NYSTATIN 100,000 UNITS/GM TOPICAL PWD 15 GM ONE; +OLANZapine 10 MG TAB ONE; +OLANZapine 5 MG TAB ONE; +PILL CUTTER 1 EACH XX ONE
[2020-03-25] MEDS ORDERED: IPRATROPIUM 0.5MG/ALBUTEROL 2.5MG INH SOL UD 3ML (DUONEB) ONE (10:00)
[2020-03-25] MEDS ORDERED: DOCUSATE SODIUM 100 MG CAP ONE (22:05)
[2020-03-25] MEDS ORDERED: CARVedilol 6.25 MG TAB ONE (22:05)
[2020-03-25] MEDS ORDERED: FINASTERIDE 5 MG TAB ONE (22:05)
[2020-03-25] MEDS ORDERED: clonazePAM 1 MG TAB ONE (22:05)
[2020-03-25] MEDS ORDERED: hydrOXYzine 25 MG TAB As Ordered ONE (22:05)
[2020-03-25] MEDS ORDERED: DOCUSATE SODIUM 100 MG CAP As Ordered ONE (22:05)
[2020-03-25] MEDS ORDERED: hydrOXYzine 25 MG TAB ONE (22:05)
[2020-03-25] MEDS ORDERED: FINASTERIDE 5 MG TAB As Ordered ONE (22:05)
[2020-03-25] MEDS ORDERED: haloperidoL 5 MG TAB ONE (22:05)
[2020-03-25] MEDS ORDERED: CARVedilol 6.25 MG TAB As Ordered ONE (22:05)
[2020-03-25] MEDS ORDERED: clonazePAM 1 MG TAB As Ordered ONE (22:06)
[2020-03-25] MEDS ORDERED: lamoTRIgine 100MG TAB ONE (22:06)
[2020-03-25] MEDS ORDERED: APIXABAN 2.5 MG TAB (ELIQUIS) As Ordered ONE (22:06)
[2020-03-25] MEDS ORDERED: lamoTRIgine 100MG TAB As Ordered ONE (22:06)
[2020-03-25] MEDS ORDERED: APIXABAN 2.5 MG TAB (ELIQUIS) ONE (22:06)
[2020-03-25] MEDS ORDERED: haloperidoL 5 MG TAB As Ordered ONE (22:06)
[2020-03-26] MEDS ORDERED: FUROSEMIDE 20MG/2ML VIAL (J1940) ONE ×2 (06:57)
[2020-03-26] MEDS ORDERED: FUROSEMIDE 20MG/2ML VIAL (J1940) As Ordered ONE (06:57)
[2020-03-26] MEDS ORDERED: ATORVASTATIN 10 MG TAB ONE ×2 (09:02)
[2020-03-26] MEDS ORDERED: lamoTRIgine 100MG TAB As Ordered ONE ×2 (09:02→20:48)
[2020-03-26] MEDS ORDERED: DOCUSATE SODIUM 100 MG CAP As Ordered ONE ×2 (09:02→20:49)
[2020-03-26] MEDS ORDERED: predniSONE 20 MG TAB ONE ×2 (09:02)
[2020-03-26] MEDS ORDERED: OMEPRAZOLE 20 MG CAP ONE ×2 (09:02)
[2020-03-26] MEDS ORDERED: DOCUSATE SODIUM 100 MG CAP ONE ×3 (09:02→20:48)
[2020-03-26] MEDS ORDERED: MULTIVITAMINS/MINERALS THERAP 1 TAB ONE ×2 (09:02)
[2020-03-26] MEDS ORDERED: lamoTRIgine 100MG TAB ONE ×3 (09:02→20:48)
[2020-03-26] MEDS ORDERED: AZITHROMYCIN 250MG TABLET ONE ×3 (09:02→20:48)
[2020-03-26] MEDS ORDERED: hydrOXYzine 25 MG TAB ONE ×3 (09:02→20:48)
[2020-03-26] MEDS ORDERED: AZITHROMYCIN 250MG TABLET As Ordered ONE (09:02)
[2020-03-26] MEDS ORDERED: ATORVASTATIN 10 MG TAB As Ordered ONE (09:03)
[2020-03-26] MEDS ORDERED: predniSONE 20 MG TAB As Ordered ONE (09:03)
[2020-03-26] MEDS ORDERED: MULTIVITAMINS/MINERALS THERAP 1 TAB As Ordered ONE (09:03)
[2020-03-26] MEDS ORDERED: OMEPRAZOLE 20 MG CAP As Ordered ONE (09:03)
[2020-03-26] MEDS ORDERED: hydrOXYzine 25 MG TAB As Ordered ONE ×2 (09:04→20:51)
[2020-03-26] MEDS ORDERED: NICOTINE 21MG/24HR 1 EA TRANSDERMAL ONE (09:07)
[2020-03-26] MEDS ORDERED: APIXABAN 2.5 MG TAB (ELIQUIS) ONE ×2 (09:07→20:48)
[2020-03-26] MEDS ORDERED: NICOTINE 21MG/24HR 1 EA TRANSDERMAL As Ordered ONE (09:07)
[2020-03-26] MEDS ORDERED: CARVedilol 6.25 MG TAB ONE ×2 (09:07→20:48)
[2020-03-26] MEDS ORDERED: CARVedilol 6.25 MG TAB As Ordered ONE ×2 (09:08→20:49)
[2020-03-26] MEDS ORDERED: APIXABAN 2.5 MG TAB (ELIQUIS) As Ordered ONE ×2 (09:08→20:49)
[2020-03-26] MEDS ORDERED: IPRATROPIUM 0.5MG/ALBUTEROL 2.5MG INH SOL UD 3ML (DUONEB) ONE (10:00)
[2020-03-26] MEDS ORDERED: FERROUS SULFATE 325MG TAB As Ordered ONE (11:47)
[2020-03-26] MEDS ORDERED: FERROUS SULFATE 325MG TAB ONE (11:47)
[2020-03-26] MEDS ORDERED: cefTRIAXone SOD 1GM VIAL (J0696 PER 250MG) ONE (11:47)
[2020-03-26] MEDS ORDERED: cefTRIAXone SOD 1GM VIAL (J0696 PER 250MG) As Ordered ONE (11:48)
[2020-03-26] MEDS ORDERED: HumaLOG INSULIN (NovoLOG) PER UNIT As Ordered ONE (17:09)
[2020-03-26] MEDS ORDERED: HumaLOG INSULIN (NovoLOG) PER UNIT ONE (17:09)
[2020-03-26] MEDS ORDERED: FINASTERIDE 5 MG TAB ONE (20:48)
[2020-03-26] MEDS ORDERED: FINASTERIDE 5 MG TAB As Ordered ONE (20:49)
[2020-03-27] MEDS ORDERED: DOCUSATE SODIUM 100 MG CAP ONE (08:11)
[2020-03-27] MEDS ORDERED: AZITHROMYCIN 250MG TABLET As Ordered ONE (08:11)
[2020-03-27] MEDS ORDERED: predniSONE 20 MG TAB ONE (08:11)
[2020-03-27] MEDS ORDERED: NICOTINE 21MG/24HR 1 EA TRANSDERMAL As Ordered ONE (08:11)
[2020-03-27] MEDS ORDERED: NICOTINE 21MG/24HR 1 EA TRANSDERMAL ONE (08:11)
[2020-03-27] MEDS ORDERED: OMEPRAZOLE 20 MG CAP ONE (08:11)
[2020-03-27] MEDS ORDERED: APIXABAN 2.5 MG TAB (ELIQUIS) ONE (08:11)
[2020-03-27] MEDS ORDERED: FERROUS SULFATE 325MG TAB ONE (08:11)
[2020-03-27] MEDS ORDERED: FUROSEMIDE 20MG/2ML VIAL (J1940) ONE (08:11)
[2020-03-27] MEDS ORDERED: hydrOXYzine 25 MG TAB ONE ×2 (08:11→16:36)
[2020-03-27] MEDS ORDERED: MULTIVITAMINS/MINERALS THERAP 1 TAB ONE (08:11)
[2020-03-27] MEDS ORDERED: ATORVASTATIN 10 MG TAB ONE (08:11)
[2020-03-27] MEDS ORDERED: HumaLOG INSULIN (NovoLOG) PER UNIT ONE ×3 (08:11→17:00)
[2020-03-27] MEDS ORDERED: lamoTRIgine 100MG TAB As Ordered ONE (08:11)
[2020-03-27] MEDS ORDERED: CARVedilol 6.25 MG TAB ONE (08:11)
[2020-03-27] MEDS ORDERED: lamoTRIgine 100MG TAB ONE (08:11)
[2020-03-27] MEDS ORDERED: MULTIVITAMINS/MINERALS THERAP 1 TAB As Ordered ONE (08:12)
[2020-03-27] MEDS ORDERED: DOCUSATE SODIUM 100 MG CAP As Ordered ONE (08:12)
[2020-03-27] MEDS ORDERED: OMEPRAZOLE 20 MG CAP As Ordered ONE (08:12)
[2020-03-27] MEDS ORDERED: HumaLOG INSULIN (NovoLOG) PER UNIT As Ordered ONE ×3 (08:13→17:00)
[2020-03-27] MEDS ORDERED: FUROSEMIDE 20MG/2ML VIAL (J1940) As Ordered ONE (08:13)
[2020-03-27] MEDS ORDERED: CARVedilol 6.25 MG TAB As Ordered ONE (08:13)
[2020-03-27] MEDS ORDERED: APIXABAN 2.5 MG TAB (ELIQUIS) As Ordered ONE (08:13)
[2020-03-27] MEDS ORDERED: ATORVASTATIN 10 MG TAB As Ordered ONE (08:13)
[2020-03-27] MEDS ORDERED: FERROUS SULFATE 325MG TAB As Ordered ONE (08:13)
[2020-03-27] MEDS ORDERED: hydrOXYzine 25 MG TAB As Ordered ONE ×2 (08:14→16:36)
[2020-03-27] MEDS ORDERED: predniSONE 20 MG TAB As Ordered ONE (08:14)
[2020-03-27] MEDS ORDERED: IPRATROPIUM 0.5MG/ALBUTEROL 2.5MG INH SOL UD 3ML (DUONEB) ONE (10:00)
[2020-03-27] MEDS ORDERED: cefTRIAXone SOD 1GM VIAL (J0696 PER 250MG) As Ordered ONE (11:15)
[2020-03-27] MEDS ORDERED: cefTRIAXone SOD 1GM VIAL (J0696 PER 250MG) ONE (11:15)
[2020-03-27] MEDS ORDERED: clonazePAM 1 MG TAB ONE (16:36)
[2020-03-27] MEDS ORDERED: clonazePAM 1 MG TAB As Ordered ONE (16:36)
[2020-03-28] MEDS ORDERED: hydrOXYzine 25 MG TAB ONE (08:26)
[2020-03-28] MEDS ORDERED: OMEPRAZOLE 20 MG CAP ONE (08:26)
[2020-03-28] MEDS ORDERED: MULTIVITAMINS/MINERALS THERAP 1 TAB ONE (08:26)
[2020-03-28] MEDS ORDERED: FERROUS GLUCONATE 324 MG TAB ONE (08:26)
[2020-03-28] MEDS ORDERED: CALCITRIOL 0.25 MCG CAP (S0169) ONE (08:26)
[2020-03-28] MEDS ORDERED: APIXABAN 2.5 MG TAB (ELIQUIS) ONE (08:26)
[2020-03-28] MEDS ORDERED: CARVedilol 6.25 MG TAB ONE (08:26)
[2020-03-28] MEDS ORDERED: AZITHROMYCIN 250MG TABLET ONE (08:26)
[2020-03-28] MEDS ORDERED: NICOTINE 21MG/24HR 1 EA TRANSDERMAL ONE (08:26)
[2020-03-28] MEDS ORDERED: DOCUSATE SODIUM 100 MG CAP As Ordered ONE (08:26)
[2020-03-28] MEDS ORDERED: predniSONE 20 MG TAB ONE (08:26)
[2020-03-28] MEDS ORDERED: lamoTRIgine 100MG TAB ONE (08:26)
[2020-03-28] MEDS ORDERED: MULTIVITAMINS/MINERALS THERAP 1 TAB As Ordered ONE (08:26)
[2020-03-28] MEDS ORDERED: HumaLOG INSULIN (NovoLOG) PER UNIT ONE ×2 (08:26→12:05)
[2020-03-28] MEDS ORDERED: DOCUSATE SODIUM 100 MG CAP ONE (08:26)
[2020-03-28] MEDS ORDERED: clonazePAM 1 MG TAB ONE (08:26)
[2020-03-28] MEDS ORDERED: haloperidoL 5 MG TAB ONE (08:26)
[2020-03-28] MEDS ORDERED: AZITHROMYCIN 250MG TABLET As Ordered ONE (08:27)
[2020-03-28] MEDS ORDERED: OMEPRAZOLE 20 MG CAP As Ordered ONE (08:27)
[2020-03-28] MEDS ORDERED: FERROUS GLUCONATE 324 MG TAB As Ordered ONE (08:27)
[2020-03-28] MEDS ORDERED: CARVedilol 6.25 MG TAB As Ordered ONE (08:27)
[2020-03-28] MEDS ORDERED: predniSONE 20 MG TAB As Ordered ONE (08:27)
[2020-03-28] MEDS ORDERED: clonazePAM 1 MG TAB As Ordered ONE (08:28)
[2020-03-28] MEDS ORDERED: NICOTINE 21MG/24HR 1 EA TRANSDERMAL As Ordered ONE (08:28)
[2020-03-28] MEDS ORDERED: HumaLOG INSULIN (NovoLOG) PER UNIT As Ordered ONE ×2 (08:29→12:05)
[2020-03-28] MEDS ORDERED: haloperidoL 5 MG TAB As Ordered ONE (08:29)
[2020-03-28] MEDS ORDERED: CALCITRIOL 0.25 MCG CAP (S0169) As Ordered ONE (08:29)
[2020-03-28] MEDS ORDERED: APIXABAN 2.5 MG TAB (ELIQUIS) As Ordered ONE (08:30)
[2020-03-28] MEDS ORDERED: lamoTRIgine 100MG TAB As Ordered ONE (08:30)
[2020-03-28] MEDS ORDERED: ATORVASTATIN 10 MG TAB ONE (08:38)
[2020-03-28] MEDS ORDERED: hydrOXYzine 25 MG TAB As Ordered ONE (08:38)
[2020-03-28] MEDS ORDERED: ATORVASTATIN 10 MG TAB As Ordered ONE (08:38)
[2020-03-28] MEDS ORDERED: OLANZapine 5 MG TAB ONE (08:56)
[2020-03-28] MEDS ORDERED: OLANZapine 10 MG TAB ONE (08:56)
[2020-03-28] MEDS ORDERED: BENZTROPINE 1 MG TAB ONE (08:56)
--- NOTE | 2020-05-04 16:35 | ECGEPIP ---
SINUS RHYTHM PATTERN CONSISTENT WITH PULMONARY DISEASE SEPTAL MYOCARDIAL INFARCTION, OF INDETERMINATE AGE INFERIOR MYOCARDIAL INFARCTION, PROBABLY OLD ABNORMAL ECG INTERPRETATION BASED ON A DEFAULT AGE OF 40 YEARS SEE SCANNED DOWNTIME REPORT MTDD
[2020-05-08 16:33] LABS: BASO % 0.4 % (0.0-1.0); EOS # 0.2 10^3/uL (0.0-0.5); EOS % 2.7 % (0.0-3.0); HEMATOCRIT 40.9 % (42.0-52.0); HEMOGLOBIN 12.3 g/dl (13.5-17.5); LYMPH # 1.1 10^3/uL (1.5-5.0); LYMPH % 16.3 % (24.0-44.0); MEAN CORPUSCULAR HEMOGLOBIN 30.2 pg (27.0-33.0); MEAN CORPUSCULAR HGB CONC 30.1 g/dl (32.0-36.5); MEAN CORPUSCULAR VOLUME 100.5 fl (80.0-96.0); MONO # 0.8 10^3/uL (0.0-0.8); NEUTROPHILS # 4.8 10^3/uL (1.5-8.5); NEUTROPHILS % 68.9 % (36.0-66.0); PLATELET COUNT, AUTOMATED 187 10^3/uL (150-450); RED BLOOD COUNT 4.07 10^6/uL (4.30-6.10); WHITE BLOOD COUNT 6.9 10^3/uL (4.0-10.0)
--- NOTE | 2020-05-12 12:39 | ECGEPIP ---
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 PULMONARY DISEASE. NO PRIOR TRACING. SEE SCANNED DOWNTIME REPORT
[2020-05-13 14:24] LABS: HEMATOCRIT 40.4 % (42.0-52.0); HEMOGLOBIN 11.8 g/dl (13.5-17.5); MEAN CORPUSCULAR HEMOGLOBIN 29.9 pg (27.0-33.0); MEAN CORPUSCULAR HGB CONC 29.2 g/dl (32.0-36.5); MEAN CORPUSCULAR VOLUME 102.5 fl (80.0-96.0); PLATELET COUNT, AUTOMATED 160 10^3/uL (150-450); RED BLOOD COUNT 3.94 10^6/uL (4.30-6.10)
[2020-05-13 14:26] LABS: BASO % 0.4 % (0.0-1.0); EOS # 0.2 10^3/uL (0.0-0.5); HEMATOCRIT 43.8 % (42.0-52.0); HEMOGLOBIN 12.7 g/dl (13.5-17.5); LYMPH # 0.8 10^3/uL (1.5-5.0); LYMPH % 15.8 % (24.0-44.0); MEAN CORPUSCULAR VOLUME 103.3 fl (80.0-96.0); MONO # 0.7 10^3/uL (0.0-0.8); MONO % 12.2 % (0.0-5.0); NEUTROPHILS # 3.6 10^3/uL (1.5-8.5); NEUTROPHILS % 67.7 % (36.0-66.0); PLATELET COUNT, AUTOMATED 166 10^3/uL (150-450); RED BLOOD COUNT 4.24 10^6/uL (4.30-6.10); WHITE BLOOD COUNT 5.3 10^3/uL (4.0-10.0)
[2020-05-13 18:21] LABS: HEMATOCRIT 44.8 % (42.0-52.0); HEMOGLOBIN 13.2 g/dl (13.5-17.5); MEAN CORPUSCULAR HEMOGLOBIN 30.2 pg (27.0-33.0); MEAN CORPUSCULAR HGB CONC 29.5 g/dl (32.0-36.5); MEAN CORPUSCULAR VOLUME 102.5 fl (80.0-96.0); PLATELET COUNT, AUTOMATED 172 10^3/uL (150-450); RED BLOOD COUNT 4.37 10^6/uL (4.30-6.10); WHITE BLOOD COUNT 6.8 10^3/uL (4.0-10.0)
[2020-05-18 11:20] LABS: HEMATOCRIT 41.5 % (42.0-52.0); HEMOGLOBIN 12.5 g/dl (13.5-17.5); MEAN CORPUSCULAR HEMOGLOBIN 29.8 pg (27.0-33.0); MEAN CORPUSCULAR HGB CONC 30.1 g/dl (32.0-36.5); PLATELET COUNT, AUTOMATED 187 10^3/uL (150-450); RED BLOOD COUNT 4.19 10^6/uL (4.30-6.10); WHITE BLOOD COUNT 6.6 10^3/uL (4.0-10.0)
[2020-06-13 10:22] LABS: CK-MB VALUE MASS < 1.0 NG/ML (<3.6); CPK CREATINE PHOSPHOKINASE 35 U/L (39-308); MB/CK RELATIVE INDEX 2.86 (< OR =4); NT-PRO BNP 576 PG/ML (<125); TROPONIN I < 0.02 NG/ML (< 0.10)
[2020-06-13 11:01] LABS: ABG SITE NOT GIVEN; ABG pH (ARTERIAL) 7.355 UNITS (7.350-7.450)
[2020-06-13 11:02] LABS: ABG HCO3 34.6 MEQ/L (22.0-26.0); ABG O2 SATURATION 36.6 % (95.0-99.0); ABG PARTIAL PRESSURE CO2 63.4 mmHg (35.0-45.0); ABG PARTIAL PRESSURE O2 216.9 mmHg (75.0-100.0); ABG STANDARD HCO3 30.9 MEQ/L (22.0-26.0); ABG TOTAL CO2 36.6 MEQ/L (23.0-31.0)
[2020-06-13 12:36] LABS: VENOUS BASE EXCESS 9.2 (-2.0-2.0); VENOUS HCO3 40.1 MEQ/L (23.0-27.0); VENOUS O2 SATURATION 81.9 % (60.0-80.0); VENOUS PARTIAL PRESSURE CO2 93.8 mmHg (38.0-50.0); VENOUS PARTIAL PRESSURE O2 51.2 mmHg (30.0-50.0); VENOUS PH 7.249 UNITS (7.330-7.430); VENOUS SITE NOT GIVEN; VENOUS STANDARD HCO3 32.6 MEQ/L
[2020-06-13 12:38] LABS: ALBUMIN 3.3 GM/DL (3.2-5.2); ALT/SGPT 21 U/L (12-78); BILIRUBIN,TOTAL 0.3 MG/DL (0.2-1.0); BLOOD UREA NITROGEN 28 MG/DL (7-18); CALCIUM LEVEL 9.3 MG/DL (8.8-10.2); CARBON DIOXIDE LEVEL 38 MEQ/L (21-32); CHLORIDE LEVEL 106 MEQ/L (98-107); CK-MB VALUE MASS < 1.0 NG/ML (<3.6); CPK CREATINE PHOSPHOKINASE 43 U/L (39-308); CREATININE FOR GFR 2.23 MG/DL (0.70-1.30); GLOMERULAR FILTRATION RATE 31.7 (>49); GLUCOSE, FASTING 146 MG/DL (70-100); MB/CK RELATIVE INDEX 2.33 (< OR =4); SODIUM LEVEL 144 MEQ/L (136-145); TOTAL PROTEIN 6.5 GM/DL (6.4-8.2); TROPONIN I < 0.02 NG/ML (< 0.10)
[2020-06-20 21:57] LABS: BLOOD UREA NITROGEN 23 MG/DL (7-18); CALCIUM LEVEL 9.7 MG/DL (8.8-10.2); CARBON DIOXIDE LEVEL 41 MEQ/L (21-32); CHLORIDE LEVEL 106 MEQ/L (98-107); CK-MB VALUE MASS < 1.0 NG/ML (<3.6); CPK CREATINE PHOSPHOKINASE 20 U/L (39-308); CREATININE FOR GFR 2.09 MG/DL (0.70-1.30); GLOMERULAR FILTRATION RATE 34.2 (>49); GLUCOSE, FASTING 169 MG/DL (70-100); MAGNESIUM LEVEL 2.3 MG/DL (1.8-2.4); PHOSPHORUS LEVEL 3.1 MG/DL (2.5-4.9); POTASSIUM SERUM 4.9 MEQ/L (3.5-5.1); SODIUM LEVEL 148 MEQ/L (136-145); TROPONIN I < 0.02 NG/ML (< 0.10)
[2020-06-20 21:59] LABS: ABG MODE OF VENT R/A
[2020-06-20 22:00] LABS: ABG BASE EXCESS 8.9 (-2.0-2.0); ABG HCO3 37.6 MEQ/L (22.0-26.0); ABG O2 SATURATION 92.8 % (95.0-99.0); ABG PARTIAL PRESSURE CO2 72.9 mmHg (35.0-45.0); ABG PARTIAL PRESSURE O2 63.8 mmHg (75.0-100.0); ABG STANDARD HCO3 32.6 MEQ/L (22.0-26.0); ABG TOTAL CO2 39.8 MEQ/L (23.0-31.0)
[2020-06-20 22:01] LABS: CREATININE,RANDOM URINE 66.3 MG/DL; TOTAL PROTEIN,RANDOM URINE 85.7 MG/DL (0.0-12.0)
[2020-06-20 22:13] LABS: ABG MODE OF VENT R/A; ABG pH (ARTERIAL) 7.206 UNITS (7.350-7.450)
[2020-06-20 22:14] LABS: ABG BASE EXCESS 7.8 (-2.0-2.0); ABG HCO3 39.4 MEQ/L (22.0-26.0); ABG O2 SATURATION 96.6 % (95.0-99.0); ABG PARTIAL PRESSURE CO2 101.6 mmHg (35.0-45.0); ABG PARTIAL PRESSURE O2 94.6 mmHg (75.0-100.0); ABG STANDARD HCO3 31.6 MEQ/L (22.0-26.0); ABG TOTAL CO2 42.5 MEQ/L (23.0-31.0)
[2020-06-20 22:15] LABS: ABG pH (ARTERIAL) 7.272 UNITS (7.350-7.450)
[2020-06-20 22:16] LABS: ABG MODE OF VENT R/A
[2020-06-20 22:17] LABS: ABG BASE EXCESS 9.6 (-2.0-2.0); ABG O2 SATURATION 91.6 % (95.0-99.0); ABG PARTIAL PRESSURE CO2 88.8 mmHg (35.0-45.0); ABG PARTIAL PRESSURE O2 62.4 mmHg (75.0-100.0); ABG STANDARD HCO3 33.2 MEQ/L (22.0-26.0); ABG TOTAL CO2 42.8 MEQ/L (23.0-31.0)
[2020-06-20 22:20] LABS: ALBUMIN 3.3 GM/DL (3.2-5.2); ALT/SGPT 19 U/L (12-78); BILIRUBIN,TOTAL 0.3 MG/DL (0.2-1.0); BLOOD UREA NITROGEN 22 MG/DL (7-18); CALCIUM LEVEL 9.1 MG/DL (8.8-10.2); CARBON DIOXIDE LEVEL 41 MEQ/L (21-32); CHLORIDE LEVEL 108 MEQ/L (98-107); CREATININE FOR GFR 2.08 MG/DL (0.70-1.30); GLOMERULAR FILTRATION RATE 34.4 (>49); GLUCOSE, FASTING 167 MG/DL (70-100); POTASSIUM SERUM 5.3 MEQ/L (3.5-5.1); SODIUM LEVEL 146 MEQ/L (136-145); TOTAL PROTEIN 6.7 GM/DL (6.4-8.2); TROPONIN I < 0.02 NG/ML (< 0.10)
[2020-06-20 22:33] LABS: ABG MODE OF VENT R/A; ABG pH (ARTERIAL) 7.172 UNITS (7.350-7.450)
[2020-06-20 22:34] LABS: ABG BASE EXCESS 14.5 (-2.0-2.0); ABG HCO3 48.4 MEQ/L (22.0-26.0); ABG PARTIAL PRESSURE CO2 135.2 mmHg (35.0-45.0); ABG PARTIAL PRESSURE O2 105.3 mmHg (75.0-100.0); ABG STANDARD HCO3 38.3 MEQ/L (22.0-26.0); ABG TOTAL CO2 52.6 MEQ/L (23.0-31.0)
[2020-06-20 23:12] LABS: CALCIUM LEVEL 9.5 MG/DL (8.8-10.2); CREATININE FOR GFR 2.3 MG/DL (0.70-1.30); GLOMERULAR FILTRATION RATE 30.6 (>49); POTASSIUM SERUM 4.1 MEQ/L (3.5-5.1)
[2020-06-21 02:52] LABS: BLOOD UREA NITROGEN 22 MG/DL (7-18); CARBON DIOXIDE LEVEL 42 MEQ/L (21-32); CHLORIDE LEVEL 108 MEQ/L (98-107); CK-MB VALUE MASS < 1.0 NG/ML (<3.6); CPK CREATINE PHOSPHOKINASE 32 U/L (39-308); CREATININE FOR GFR 2.07 MG/DL (0.70-1.30); GLOMERULAR FILTRATION RATE 34.6 (>49); GLUCOSE, FASTING 267 MG/DL (70-100); LITHIUM LEVEL 0.54 MEQ/L (0.60-1.20); MB/CK RELATIVE INDEX 3.12 (< OR =4); POTASSIUM SERUM 5.4 MEQ/L (3.5-5.1); SODIUM LEVEL 147 MEQ/L (136-145); TROPONIN I < 0.02 NG/ML (< 0.10)
[2020-06-21 04:12] LABS: CALCIUM LEVEL 9.5 MG/DL (8.8-10.2); CREATININE FOR GFR 2.2 MG/DL (0.70-1.30); GLOMERULAR FILTRATION RATE 32.2 (>49); POTASSIUM SERUM 3.9 MEQ/L (3.5-5.1)
== END 2020-03-28 08:57 | disposition home or self-care (01) | DRG 189 ==
LOC: M ED 08:40 → M PCU 12:00
PROVIDERS: ADMIT Internal Medicine; ATTEND Internal Medicine
DX: J96.21 Acute and chronic respiratory failure with hypoxia (principal); N17.9 Acute kidney failure, unspecified; L03.115 Cellulitis of right lower limb; E66.2 Morbid (severe) obesity with alveolar hypoventilation; J44.1 Chronic obstructive pulmonary disease with (acute) exacerbation; G47.33 Obstructive sleep apnea (adult) (pediatric); Z91.19 Patient's noncompliance with other medical treatment and regimen; F20.9 Schizophrenia, unspecified; I27.20 Pulmonary hypertension, unspecified; I50.810 Right heart failure, unspecified; Z79.01 Long term (current) use of anticoagulants; Z79.899 Other long term (current) drug therapy; Z86.718 Personal history of other venous thrombosis and embolism; F17.210 Nicotine dependence, cigarettes, uncomplicated

== ENCOUNTER → 2020-04-12 | Outpatient (REF) | payer MEDICARE, MEDICAID ==
[~2020-04-12] MED LIST changes: -AZELASTINE 137MCG NASAL SPY 30 ML (ASTELIN) ONE; -BENZTROPINE 1 MG TAB ONE; -FLUTICASONE PROP 0.05% NASAL SPRAY 16 GM (FLONASE) ONE; -LITHIUM CARBONATE 150 MG CAP ONE; -NYSTATIN 100,000 UNITS/GM TOPICAL PWD 15 GM ONE; -OLANZapine 10 MG TAB ONE; -OLANZapine 5 MG TAB ONE; -PILL CUTTER 1 EACH XX ONE
[2020-04-12 15:15] LABS: HEMATOCRIT 43.4 % (42.0-52.0); HEMOGLOBIN 13.8 g/dl (13.5-17.5); MEAN CORPUSCULAR HEMOGLOBIN 30.7 pg (27.0-33.0); MEAN CORPUSCULAR HGB CONC 31.8 g/dl (32.0-36.5); MEAN CORPUSCULAR VOLUME 96.4 fl (80.0-96.0); PLATELET COUNT, AUTOMATED 210 10^3/uL (150-450); WHITE BLOOD COUNT 6.8 10^3/uL (4.0-10.0)
[2020-04-12 16:55] LABS: HEMOGLOBIN A1c 6.8 %
[2020-04-12 23:01] LABS: ALBUMIN 3.7 GM/DL (3.2-5.2); BILIRUBIN,TOTAL 0.6 MG/DL (0.2-1.0); CALCIUM LEVEL 9.9 MG/DL (8.8-10.2); CREATININE FOR GFR 2.02 MG/DL (0.70-1.30); GLOMERULAR FILTRATION RATE 35.6 (>49); POTASSIUM SERUM 4.9 MEQ/L (3.5-5.1); TOTAL PROTEIN 7.1 GM/DL (6.4-8.2)
== END ==
LOC: M LABDRWAD 13:26
PROVIDERS: ATTEND Physician Assistant
DX: K21.9 Gastro-esophageal reflux disease without esophagitis (principal); J44.9 Chronic obstructive pulmonary disease, unspecified; E11.9 Type 2 diabetes mellitus without complications; R10.9 Unspecified abdominal pain; N18.3 Chronic kidney disease, stage 3 (moderate); Z12.5 Encounter for screening for malignant neoplasm of prostate
CPT/HCPCS: 36415; 80053; 82150; 83036; 85027; G0103; G0463

== ENCOUNTER → 2020-08-03 | Outpatient (CLI) | payer MEDICARE, MEDICAID ==
--- NOTE | 2020-08-03 08:39 | REP ---
INDICATION: OTHER ASCITES. COMPARISON: Abdomen and pelvis CT dated 10/10/2018. TECHNIQUE: Complete abdomen ultrasound. FINDINGS: There is no cholelithiasis, gallbladder wall thickening or pericholecystic fluid. There is no intrahepatic or extrahepatic biliary duct dilatation. The common duct measures 4.1 mm in diameter. The hepatic parenchyma is homogeneous and otherwise unremarkable. There are no solid or cystic hepatic masses. The visualized portions of the pancreas are unremarkable. Portions of the pancreas are obscured by bowel gas. The spleen measures 12.4 x 7.5 x 9.9 cm for a splenic index of 920, compatible splenomegaly. Normal splenic index is less than 480. There are tiny echogenic foci throughout the spleen, possibly granulomas. They are not visible on the comparison CT. The right kidney measures 9.9 x 3.6 x 4.3 cm and is in the low normal size range. The left kidney measures 8.6 x 4.9 x 4.9 cm and is in the atrophic size range. There is no hydronephrosis on the right or the left. No renal calculi are identified on right or the left. No solid renal masses are identified on the right or the left. There is a right renal upper pole Bosniak type 1 cyst measuring 2.3 x 2.1 x 3.1 cm. There is a left renal lower pole Bosniak type 1 cyst measuring 1.1 by 1.0 x 1.0 cm. There is right perinephric fluid. The proximal aorta is obscured by bowel gas. The mid aorta measures 1.6 cm in diameter and the distal aorta measures 1.6 cm in diameter. No aortic aneurysm in the visualized areas. No free fluid is identified in the abdomen. IMPRESSION: No ascites is identified. Splenomegaly. There are small splenic echogenic foci, possibly granulomas, not visible on the comparison CT. Portions of the pancreas are obscured by bowel gas. The proximal aorta is obscured by bowel gas. The left kidney is atrophic size. There are bilateral Bosniak type 1 renal cysts. There is right perinephric fluid. The study is technically difficult because of patient inability to breath hold, bowel gas and patient body habitus. <Electronically signed by Mikal Pina > 08/03/20 [id number]
== END ==
LOC: M RAD 07:09
PROVIDERS: ATTEND Nurse Practitioner Family
DX: R18.8 Other ascites (principal); R10.10 Upper abdominal pain, unspecified; R16.1 Splenomegaly, not elsewhere classified; N28.1 Cyst of kidney, acquired

== ENCOUNTER → 2020-08-25 | Outpatient (REF) | payer MEDICARE, MEDICAID | LOC: M LAB REF 17:03 | PROVIDERS: ATTEND Nurse Practitioner Family | DX: F20.81 Schizophreniform disorder (principal); Z79.899 Other long term (current) drug therapy ==

== ENCOUNTER 2020-09-09 19:29 | Emergency (ER) | payer MEDICARE, MEDICAID ==
[~2020-09-09 19:29] MED LIST changes: -CLIN150C14 PO; +CLIN150C15 PO
--- NOTE | 2020-09-09 20:33 | REPVR ---
PROCEDURE INFORMATION: Exam: XR Chest, 1 View Exam date and time: 09/09/2020 8:26 PM Age: 65 years old Clinical indication: Shortness of breath; Additional info: SOB TECHNIQUE: Imaging protocol: XR of the chest Views: 1 view. COMPARISON: CT Chest without contrast 03/25/2020 10:37 AM FINDINGS: Lungs: Unremarkable. No consolidation. Pleural space: Unremarkable. No pleural effusion. No pneumothorax. Heart/Mediastinum: Unremarkable. No cardiomegaly. Bones/joints: Unremarkable. IMPRESSION: No acute findings. Electronically signed by: Inderjit Leary On 09/09/2020 20:32:10 PM
[2020-09-09 21:06] LABS: BASO % 0.4 % (0.0-1.0); EOS # 0.2 10^3/uL (0.0-0.5); EOS % 3.1 % (0.0-3.0); HEMATOCRIT 39.7 % (42.0-52.0); HEMOGLOBIN 12.5 g/dl (13.5-17.5); LYMPH # 1.4 10^3/uL (1.5-5.0); LYMPH % 20.7 % (24.0-44.0); MEAN CORPUSCULAR HEMOGLOBIN 28.8 pg (27.0-33.0); MEAN CORPUSCULAR HGB CONC 31.5 g/dl (32.0-36.5); MEAN CORPUSCULAR VOLUME 91.5 fl (80.0-96.0); MONO # 0.7 10^3/uL (0.0-0.8); MONO % 10.3 % (0.0-5.0); NEUTROPHILS # 4.4 10^3/uL (1.5-8.5); NEUTROPHILS % 64.9 % (36.0-66.0); PLATELET COUNT, AUTOMATED 200 10^3/uL (150-450); RED BLOOD COUNT 4.34 10^6/uL (4.30-6.10); WHITE BLOOD COUNT 6.8 10^3/uL (4.0-10.0)
--- NOTE | 2020-09-09 21:16 | ECGEPIP ---
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
[2020-09-09 21:44] LABS: ALBUMIN 3.6 GM/DL (3.2-5.2); ALT/SGPT 28 U/L (12-78); BILIRUBIN,DIRECT 0.1 MG/DL (0.0-0.2); BILIRUBIN,TOTAL 0.4 MG/DL (0.2-1.0); BLOOD UREA NITROGEN 33 MG/DL (7-18); CALCIUM LEVEL 9.6 MG/DL (8.8-10.2); CARBON DIOXIDE LEVEL 34 MEQ/L (21-32); CHLORIDE LEVEL 103 MEQ/L (98-107); CK-MB VALUE MASS < 1.0 NG/ML (<3.6); CPK CREATINE PHOSPHOKINASE 31 U/L (39-308); CREATININE FOR GFR 2.57 MG/DL (0.70-1.30); GLOMERULAR FILTRATION RATE 26.9 (>49); GLUCOSE, FASTING 198 MG/DL (70-100); LIPASE 96 U/L (73-393); MB/CK RELATIVE INDEX 3.23 (< OR =4); POTASSIUM SERUM 3.7 MEQ/L (3.5-5.1); SODIUM LEVEL 141 MEQ/L (136-145); TOTAL PROTEIN 6.6 GM/DL (6.4-8.2); TROPONIN I < 0.02 NG/ML (< 0.10)
[2020-09-09 23:02] VITALS: BP 123/76
== END 2020-09-09 23:04 | disposition home or self-care (01) ==
LOC: M ED 19:29
DX: I12.9 Hypertensive chronic kidney disease with stage 1 through stage 4 chronic kidney disease, or unspecified chronic kidney disease (principal); R06.02 Shortness of breath; E11.9 Type 2 diabetes mellitus without complications; E78.5 Hyperlipidemia, unspecified; F17.200 Nicotine dependence, unspecified, uncomplicated; Z88.6 Allergy status to analgesic agent; Z79.01 Long term (current) use of anticoagulants; Z79.899 Other long term (current) drug therapy

== ENCOUNTER 2020-11-16 13:51 | Emergency (ER) | payer MEDICARE, MEDICAID ==
[~2020-11-16] VITALS: Ht 165.1 cm; Wt 94.6 kg
[2020-11-16] MEDS ORDERED: NS 1,000 ML IV SCH (14:10)
[2020-11-16] MEDS ORDERED: ONDANSETRON 4MG/2ML VIAL IV ONE (14:30)
--- NOTE | 2020-11-16 15:30 | REP ---
INDICATION: abdl pain. COMPARISON: 09/09/2020. TECHNIQUE: Portable AP chest with the patient upright.. FINDINGS: The lung alexandre are clear. Cardiac size is upper normal. The lesly, mediastinum and skeletal structures are unchanged. An old fracture of the right 8th rib posterior arch, unchanged. IMPRESSION: No interval change. Essentially negative portable chest. <Electronically signed by Mikal Pina > 11/16/20 [id number]
[2020-11-16 15:39] LABS: BASO % 0.7 % (0.0-1.0); EOS # 0.2 10^3/uL (0.0-0.5); EOS % 3.9 % (0.0-3.0); HEMATOCRIT 39.7 % (42.0-52.0); HEMOGLOBIN 12.7 g/dl (13.5-17.5); LYMPH # 1.2 10^3/uL (1.5-5.0); LYMPH % 19.6 % (24.0-44.0); MEAN CORPUSCULAR HEMOGLOBIN 29.9 pg (27.0-33.0); MEAN CORPUSCULAR VOLUME 93.4 fl (80.0-96.0); MONO # 0.6 10^3/uL (0.0-0.8); MONO % 9.5 % (2.0-8.0); NEUTROPHILS # 3.8 10^3/uL (1.5-8.5); NEUTROPHILS % 65.4 % (36.0-66.0); PLATELET COUNT, AUTOMATED 207 10^3/uL (150-450); RED BLOOD COUNT 4.25 10^6/uL (4.30-6.10); WHITE BLOOD COUNT 5.9 10^3/uL (4.0-10.0)
[2020-11-16 16:10] LABS: ALBUMIN 3.6 GM/DL (3.2-5.2); ALT/SGPT 36 U/L (12-78); AMYLASE 63 U/L (25-115); BILIRUBIN,DIRECT < 0.1 MG/DL (0.0-0.2); BILIRUBIN,TOTAL 0.4 MG/DL (0.2-1.0); CK-MB VALUE MASS < 1.0 NG/ML (<3.6); CPK CREATINE PHOSPHOKINASE 65 U/L (39-308); LIPASE 86 U/L (73-393); MB/CK RELATIVE INDEX 1.54 (< OR =4); TROPONIN I < 0.02 NG/ML (< 0.10)
--- NOTE | 2020-11-16 17:17 | REP ---
INDICATION: vomiting cr 2.2. . COMPARISON: 10/10/2018. TECHNIQUE: The patient reportedly has a creatinine level of 2.2. Therefore, the study is performed without IV contrast. There also is no bowel contrast. FINDINGS: The visualized lower lung alexandre are unremarkable. The unenhanced hepatic parenchyma is homogeneous. The gallbladder is unremarkable. The head and uncinate process of the pancreas appear enlarged but stable and unchanged from the prior study. This may represent sequela of pancreatitis. Correlation with the patient's clinical history is recommended. There is no evidence of acute pancreatic inflammation. There is no evidence of pancreatic cyst or pseudocyst. Pancreatic duct is not dilated. The spleen is normal size and unremarkable. The adrenals are unremarkable. There is a faintly visible hypodense lesion in the lower pole of the right kidney, similar to the prior CT. It measures approximately 2.9 cm in diameter. On a recent renal ultrasound dated 10/28/2019 there was a renal cyst in this location. The abdominal aorta is unremarkable. There is no periaortic mass or adenopathy. There is no bowel distention or obstruction. The mesentery is unremarkable. Pelvis: The terminal ileum and pancreas are unremarkable. There is no adenopathy or ascites. The bladder is incompletely distended but otherwise unremarkable. IMPRESSION: The head and uncinate process of the pancreas appear enlargement stable and unchanged from 10/10/2018. This may represent sequela of pancreatitis. There is no CT evidence of acute pancreatitis. There is no pancreatic cyst or pseudocyst. The pancreatic duct is not dilated. MRI follow-up of the pancreas might be considered for further evaluation. There is a right renal cortical cyst. This cyst is also noted on the recent renal ultrasound. There is no ascites or adenopathy. No bowel distention or obstruction. Terminal ileum and appendix are unremarkable. <Electronically signed by Mikal Pina > 11/16/20 [id number]
[2020-11-16 17:53] VITALS: BP 128/81
--- NOTE | 2020-11-16 20:49 | ECGEPIP ---
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
--- NOTE | 2020-11-16 21:58 | ED PDOC ---
Post-Departure Follow-Up ct abd/p faxed to dr pedro for fu Alice Leyva MD Nov 16, 2020 21:58
== END 2020-11-16 18:01 | disposition home or self-care (01) ==
LOC: M ED 13:51 → EDBD 13:51 → M ED 18:01
DX: R10.9 Unspecified abdominal pain (principal); R11.2 Nausea with vomiting, unspecified; R94.31 Abnormal electrocardiogram [ECG] [EKG]; E11.9 Type 2 diabetes mellitus without complications; I12.9 Hypertensive chronic kidney disease with stage 1 through stage 4 chronic kidney disease, or unspecified chronic kidney disease; E78.5 Hyperlipidemia, unspecified; F17.200 Nicotine dependence, unspecified, uncomplicated; Z88.6 Allergy status to analgesic agent; Z79.899 Other long term (current) drug therapy; Z79.01 Long term (current) use of anticoagulants
CPT/HCPCS: 71045; 74176; 80047; 80076; 82150; 82550; 82553; 83605; 83690; 84484; 85025; 87040; 93005; 93041; 96360; 96361; 99285; J2405

== ENCOUNTER → 2020-11-29 | Outpatient (REF) | payer MEDICARE, MEDICAID ==
[~2020-11-29] MED LIST changes: +FERR324T21 PO; -FERR325T16 PO
[2020-11-29 18:25] LABS: BASO % 0.5 % (0.0-1.0); EOS # 0.2 10^3/uL (0.0-0.5); EOS % 3.5 % (0.0-3.0); HEMATOCRIT 40.4 % (42.0-52.0); HEMOGLOBIN 12.6 g/dl (13.5-17.5); LYMPH # 1.3 10^3/uL (1.5-5.0); LYMPH % 21.1 % (24.0-44.0); MEAN CORPUSCULAR HGB CONC 31.2 g/dl (32.0-36.5); MEAN CORPUSCULAR VOLUME 92.9 fl (80.0-96.0); MONO # 0.7 10^3/uL (0.0-0.8); MONO % 11.2 % (2.0-8.0); NEUTROPHILS # 3.8 10^3/uL (1.5-8.5); NEUTROPHILS % 62.4 % (36.0-66.0); PLATELET COUNT, AUTOMATED 204 10^3/uL (150-450); RED BLOOD COUNT 4.35 10^6/uL (4.30-6.10); WHITE BLOOD COUNT 6.1 10^3/uL (4.0-10.0)
[2020-11-29 18:42] LABS: ALBUMIN 3.9 GM/DL (3.2-5.2); ALT/SGPT 27 U/L (12-78); BILIRUBIN,TOTAL 0.4 MG/DL (0.2-1.0); BLOOD UREA NITROGEN 33 MG/DL (7-18); CALCIUM LEVEL 10.2 MG/DL (8.8-10.2); CARBON DIOXIDE LEVEL 36 MEQ/L (21-32); CHLORIDE LEVEL 105 MEQ/L (98-107); CHOLESTEROL LEVEL 239 MG/DL (<200); CHOLESTEROL RISK RATIO 5.975 (<5); CREATININE FOR GFR 2.21 MG/DL (0.70-1.30); FREE T4 0.95 NG/DL (0.76-1.46); GLOMERULAR FILTRATION RATE 32.1 (>49); GLUCOSE, FASTING 183 MG/DL (70-100); HDL CHOLESTEROL 40 MG/DL (>40); NON-HDL-C 199 MG/DL; POTASSIUM SERUM 4.3 MEQ/L (3.5-5.1); SODIUM LEVEL 144 MEQ/L (136-145); THYROID STIMULATING HORMONE 0.564 uIU/ML (0.358-3.740); TOTAL PROTEIN 6.9 GM/DL (6.4-8.2); TRIGLYCERIDES LEVEL 452 MG/DL (<150)
[2020-11-29 19:18] LABS: HEMOGLOBIN A1c 6.6 %
== END ==
LOC: M SFHCADAM 11:50
PROVIDERS: ATTEND Physician Assistant
DX: D61.818 Other pancytopenia (principal); E11.22 Type 2 diabetes mellitus with diabetic chronic kidney disease; E78.2 Mixed hyperlipidemia; Z12.5 Encounter for screening for malignant neoplasm of prostate
CPT/HCPCS: 80053; 80061; 83036; 84439; 84443; 85025; G0103; G0463

== ENCOUNTER → 2021-03-15 | Outpatient (REF) | payer MEDICARE, MEDICAID ==
[~2021-03-15] MED LIST changes: -OLAN10TA2 PO; +OLAN1TAB16 PO; +OLAN1TAB20 PO; -OLAN5TAB PO; +OMEP40CA4 PO; -OMEP40CA97 PO
[2021-03-15 13:17] LABS: ALBUMIN 3.8 GM/DL (3.2-5.2); ALT/SGPT 38 U/L (12-78); BILIRUBIN,TOTAL 0.6 MG/DL (0.2-1.0); BLOOD UREA NITROGEN 28 MG/DL (7-18); CALCIUM LEVEL 9.8 MG/DL (8.8-10.2); CARBON DIOXIDE LEVEL 36 MEQ/L (21-32); CHLORIDE LEVEL 105 MEQ/L (98-107); CHOLESTEROL LEVEL 182 MG/DL (<200); CHOLESTEROL RISK RATIO 5.055 (<5); CREATININE FOR GFR 2.36 MG/DL (0.70-1.30); GLOMERULAR FILTRATION RATE 29.6 (>49); GLUCOSE, FASTING 117 MG/DL (70-100); HDL CHOLESTEROL 36 MG/DL (>40); NON-HDL-C 146 MG/DL; SODIUM LEVEL 142 MEQ/L (136-145); TOTAL PROTEIN 6.6 GM/DL (6.4-8.2); TRIGLYCERIDES LEVEL 480 MG/DL (<150)
== END ==
LOC: M SFHCADAM 09:59
PROVIDERS: ATTEND Physician Assistant
DX: E78.2 Mixed hyperlipidemia (principal)

== ENCOUNTER → 2021-03-15 | Outpatient (REF) | payer MEDICARE, MEDICAID ==
[2021-03-15 13:07] LABS: HEMOGLOBIN A1c 6.2 %
[2021-03-15 13:18] LABS: LITHIUM LEVEL 0.52 MEQ/L (0.60-1.20)
[2021-03-15 13:23] LABS: PROLACTIN 55.2 NG/ML (2.1-17.7)
== END ==
LOC: M LABDRWAD 12:27
PROVIDERS: ATTEND Physician Assistant
DX: F25.9 Schizoaffective disorder, unspecified (principal); Z79.899 Other long term (current) drug therapy; F71 Moderate intellectual disabilities; E78.5 Hyperlipidemia, unspecified

== ENCOUNTER → 2021-06-07 | Outpatient (REF) | payer MEDICARE, MEDICAID ==
[~2021-06-07] MED LIST changes: -CLIN150C15 PO; +CLIN150C17 PO; -DOXY100C PO; +DOXY100C3 PO
[2021-06-07 13:39] LABS: ALBUMIN 3.6 GM/DL (3.2-5.2); ALT/SGPT 40 U/L (12-78); BILIRUBIN,TOTAL 0.5 MG/DL (0.2-1.0); BLOOD UREA NITROGEN 26 MG/DL (7-18); CALCIUM LEVEL 10.5 MG/DL (8.8-10.2); CARBON DIOXIDE LEVEL 34 MEQ/L (21-32); CHLORIDE LEVEL 104 MEQ/L (98-107); CHOLESTEROL LEVEL 304 MG/DL (<200); CHOLESTEROL RISK RATIO 8.216 (<5); CREATININE FOR GFR 2.17 MG/DL (0.70-1.30); GLOMERULAR FILTRATION RATE 32.7 (>49); GLUCOSE, FASTING 122 MG/DL (70-100); HDL CHOLESTEROL 37 MG/DL (>40); NON-HDL-C 267 MG/DL; POTASSIUM SERUM 4.1 MEQ/L (3.5-5.1); SODIUM LEVEL 141 MEQ/L (136-145); TOTAL PROTEIN 6.6 GM/DL (6.4-8.2); TRIGLYCERIDES LEVEL 634 MG/DL (<150)
== END ==
LOC: M SFHCADAM 08:55
PROVIDERS: ATTEND Physician Assistant
DX: E78.1 Pure hyperglyceridemia (principal)

== ENCOUNTER → 2021-07-20 | Outpatient (CLI) | payer MEDICARE, MEDICAID ==
[~2021-07-20] MED LIST changes: +DOXY-350 PO; +INCR1INH INH; +MUCI600T31 PO; +SUCR1TAB56 PO; +TRAD5TAB PO; +VASC1CAP2 PO
== END ==
LOC: M LABSMTC 09:23
PROVIDERS: ATTEND Pediatrics
DX: Z20.822 Contact with and (suspected) exposure to COVID-19 (principal)

== ENCOUNTER 2021-07-23 13:39 | Inpatient (IN) | payer MEDICARE, MEDICAID ==
[~2021-07-23] VITALS: Ht 167.6 cm; Wt 87.0 kg
[2021-07-23] MEDS: AZELASTINE 137MCG NASAL SPY 30 ML (ASTELIN) SCH
[~2021-07-23 13:39] MED LIST changes: -CEFD1CAP8 PO; +CEFD300C41 PO; -DOXY-350 PO; -HALO1TA PO; +HALO1TAB PO; -HALO5TA PO; +HALO5TAB33 PO; -INCR1INH INH; +LATU80TA2 PO; -MUCI600T31 PO; -SUCR1TAB56 PO; -TRAD5TAB PO; -VASC1CAP2 PO
[2021-07-23] MEDS ORDERED: ACETAMINOPHEN 650 MG SUPP PR ONE (14:35)
[2021-07-23 16:24] LABS: BASO % 0.3 % (0.0-1.0); EOS # 0.1 10^3/uL (0.0-0.5); EOS % 0.8 % (0.0-3.0); HEMATOCRIT 35.4 % (42.0-52.0); HEMOGLOBIN 11.2 g/dl (13.5-17.5); LYMPH # 0.8 10^3/uL (1.5-5.0); LYMPH % 8.5 % (24.0-44.0); MEAN CORPUSCULAR HEMOGLOBIN 28.6 pg (27.0-33.0); MEAN CORPUSCULAR HGB CONC 31.6 g/dl (32.0-36.5); MEAN CORPUSCULAR VOLUME 90.5 fl (80.0-96.0); MONO # 0.7 10^3/uL (0.0-0.8); MONO % 8.1 % (2.0-8.0); NEUTROPHILS # 7.3 10^3/uL (1.5-8.5); NEUTROPHILS % 81.6 % (36.0-66.0); PLATELET COUNT, AUTOMATED 158 10^3/uL (150-450); RED BLOOD COUNT 3.91 10^6/uL (4.30-6.10)
[2021-07-23 16:33] LABS: INR 1.63; PROTHROMBIN TIME 19.7 SECONDS (12.7-14.5)
[2021-07-23 16:34] LABS: PARTIAL THROMBOPLASTIN TIME 53.8 SECONDS (25.9-37.0)
[2021-07-23] MEDS ORDERED: NS 1,000 ML IV SCH (16:35)
[2021-07-23 16:36] LABS: D-DIMER QUANT 897.41 ng/ml (<500)
[2021-07-23 16:57] LABS: ALBUMIN 2.8 GM/DL (3.2-5.2); BILIRUBIN,DIRECT 0.2 MG/DL (0.0-0.2); BILIRUBIN,TOTAL 0.4 MG/DL (0.2-1.0); CALCIUM LEVEL 9.3 MG/DL (8.8-10.2); CREATININE FOR GFR 3.27 MG/DL (0.70-1.30); GLOMERULAR FILTRATION RATE 20.3 (>49); POTASSIUM SERUM 4.3 MEQ/L (3.5-5.1); THYROID STIMULATING HORMONE 0.259 uIU/ML (0.358-3.740); TOTAL PROTEIN 6.2 GM/DL (6.4-8.2)
[2021-07-23] MEDS ORDERED: GLUCOSE 4GM CHEW TABLET PO PRN (17:20)
[2021-07-23] MEDS: NS 1,000 ML IV SCH (17:20)
[2021-07-23] MEDS ORDERED: DEXTROSE 50% 50 ML SYRINGE IV PRN (17:20)
[2021-07-23] MEDS ORDERED: GLUCAGON INJ 1MG VIAL SC PRN (17:20)
[2021-07-23] MEDS ORDERED: MOM 30ML SUSPENSION UDC PO PRN (17:20)
[2021-07-23] MEDS ORDERED: MAALOX 30 ML SUSP *UDC PO PRN (17:20)
[2021-07-23 18:11] LABS: PHOSPHORUS LEVEL 3.1 MG/DL (2.5-4.9)
[2021-07-23 18:12] LABS: LITHIUM LEVEL 0.61 MEQ/L (0.60-1.20); MAGNESIUM LEVEL 2.6 MG/DL (1.8-2.4); URIC ACID 10.5 MG/DL (3.5-7.2)
[2021-07-23] MEDS ORDERED: VASC1CAP2 PO (18:19)
[2021-07-23] MEDS ORDERED: HALO5TAB33 PO (18:19)
[2021-07-23] MEDS ORDERED: INCR1INH INH (18:19)
[2021-07-23] MEDS ORDERED: TRAD5TAB PO (18:19)
[2021-07-23] MEDS ORDERED: SUCR1TAB56 PO (18:19)
[2021-07-23] MEDS ORDERED: HOME MED LIST COMPLETE! XX SCH (18:20)
[2021-07-23] MEDS: cefTRIAXone SOD 1 GM in D5W MINI-BAG PLUS 50 ML IV SCH (18:37)
[2021-07-23] MEDS: dexameTHASONE 4 MG/ML 1ML VIAL (J1100 PER 1MG) IV SCH (18:37)
[2021-07-23] MEDS: HumaLOG INSULIN (NovoLOG) PER UNIT SC SCH ×2 (18:37→23:43)
[2021-07-23] MEDS ORDERED: SODIUM CHLORIDE 0.9% INJ 10 ML SYR IV ONE (20:00)
[2021-07-23] MEDS ORDERED: REMDESIVIR 200 MG in NS 250 ML IV ONE (20:00)
[2021-07-23] MEDS: DOXYCYCLINE HYCLATE 100 MG in D5W MINI-BAG PLUS 100 ML IV SCH (20:27)
[2021-07-23 20:30] LABS: C REACTIVE PROTEIN QUANTITATIV 24.2 MG/DL (0.00-0.30)
[2021-07-23 21:22] LABS: ABG BASE EXCESS 1.3 (-2.0-2.0); ABG HCO3 28.6 MEQ/L (22.0-26.0); ABG O2 SATURATION 97.6 % (95.0-99.0); ABG PARTIAL PRESSURE CO2 58.9 mmHg (35.0-45.0); ABG PARTIAL PRESSURE O2 114.3 mmHg (75.0-100.0); ABG STANDARD HCO3 25.6 MEQ/L (22.0-26.0); ABG TOTAL CO2 30.4 MEQ/L (23.0-31.0); ABG pH (ARTERIAL) 7.304 UNITS (7.350-7.450)
[2021-07-23 21:29] VITALS: BP 98/60
[2021-07-23] MEDS ORDERED: PILL CUTTER 1 EACH XX PRN (21:45)
[2021-07-23 22:00] VITALS: O2SAT 96
[2021-07-23] MEDS: CARVedilol 6.25 MG TAB PO SCH (22:32)
[2021-07-23 22:43] LABS: VENOUS BASE EXCESS 0.1 (-2.0-2.0); VENOUS HCO3 26.4 MEQ/L (23.0-27.0); VENOUS O2 SATURATION 96.7 % (60.0-80.0); VENOUS PARTIAL PRESSURE CO2 50.2 mmHg (38.0-50.0); VENOUS PARTIAL PRESSURE O2 95.3 mmHg (30.0-50.0); VENOUS PH 7.339 UNITS (7.330-7.430); VENOUS STANDARD HCO3 24.6 MEQ/L
[2021-07-23] MEDS: BENZTROPINE 1 MG TAB PO SCH (22:46)
[2021-07-23] MEDS: APIXABAN 2.5 MG TAB (ELIQUIS) PO SCH (22:46)
[2021-07-23] MEDS: LITHIUM CARBONATE 150 MG CAP PO SCH (22:46)
[2021-07-23] MEDS: guaiFENesin ER 600 MG TAB PO SCH (22:47)
[2021-07-23] MEDS: DOCUSATE SODIUM 100MG CAPSULE PO SCH (22:47)
[2021-07-23] MEDS: lamoTRIgine 100MG TAB PO SCH (22:47)
[2021-07-23] MEDS: FINASTERIDE 5 MG TAB PO SCH (22:48)
[2021-07-23] MEDS: SUCRALFATE 1 GM TAB PO SCH (22:48)
[2021-07-23] MEDS: hydrOXYzine 25 MG TAB PO SCH (22:50)
[2021-07-23] MEDS: OLANZapine 10 MG TAB PO SCH (22:52)
[2021-07-23] MEDS: BARICITINIB 2MG TABLET (OLUMIANT) FOR EUA PO SCH (22:55)
[2021-07-23 23:01] LABS: INR 1.45; PROTHROMBIN TIME 18.1 SECONDS (12.7-14.5)
[2021-07-23 23:03] LABS: PARTIAL THROMBOPLASTIN TIME 109.1 SECONDS (25.9-37.0)
[2021-07-23 23:18] LABS: LITHIUM LEVEL 0.61 MEQ/L (0.60-1.20)
[2021-07-23 23:39] VITALS: BP 109/76
[2021-07-24] VITALS (10 sets, daily range): BP systolic 95–109; BP diastolic 55–67; O2SAT 91–95
[2021-07-24 00:35] LABS: APPEARANCE, URINE CLEAR (CLEAR); BACTERIA, URINE AUTO NEGATIVE (NEGATIVE); BILIRUBIN, URINE AUTO NEGATIVE (NEGATIVE); BLOOD, URINE BLOOD 1+ (NEGATIVE); COLOR, URINE YELLOW (YELLOW); GLUCOSE, URINE (UA) AUTO NEGATIVE (NEGATIVE); KETONE, URINE AUTO NEGATIVE (NEGATIVE); LEUKOCYTE ESTERASE, URINE AUTO NEGATIVE (NEGATIVE); NITRITE, URINE AUTO NEGATIVE (NEGATIVE); PROTEIN, URINE AUTO 1+ mg/dL (NEGATIVE); RBC, URINE AUTO 0 /HPF (0-3); SPECIFIC GRAVITY URINE AUTO 1.005 (1.002-1.035); SQUAMOUS EPITHELIAL CELL UR AU 0 /HPF (0-6); UROBILINOGEN, URINE AUTO 0.2 mg/dL (0.0-2.0); WBC, URINE AUTO 0 /HPF (0-3)
[2021-07-24 00:53] LABS: CHLORIDE,RANDOM URINE < 10 MEQ/L; CREATININE,RANDOM URINE 44.6 MG/DL; POTASSIUM RANDOM URINE 15.5 MEQ/L; SODIUM,RANDOM URINE 15 MEQ/L; TOTAL PROTEIN,RANDOM URINE 45.6 MG/DL (0.0-12.0)
[2021-07-24 01:04] LABS: RSV AMPLIFICATION NEGATIVE (NEGATIVE)
[2021-07-24 01:21] LABS: OSMOLALITY URINE 208 MOSM/KG (50-1400)
[2021-07-24] MEDS: NS 1,000 ML IV SCH ×2 (03:20→12:21)
[2021-07-24] MEDS: HumaLOG INSULIN (NovoLOG) PER UNIT SC SCH ×5 (06:30→21:14)
[2021-07-24] MEDS: DOXYCYCLINE HYCLATE 100 MG in D5W MINI-BAG PLUS 100 ML IV SCH ×2 (06:30→18:13)
[2021-07-24 07:06] LABS: BASO % 0.2 % (0.0-1.0); EOS % 0.2 % (0.0-3.0); HEMATOCRIT 33.3 % (42.0-52.0); HEMOGLOBIN 10.3 g/dl (13.5-17.5); LYMPH # 0.8 10^3/uL (1.5-5.0); LYMPH % 13.7 % (24.0-44.0); MEAN CORPUSCULAR HEMOGLOBIN 28.5 pg (27.0-33.0); MEAN CORPUSCULAR HGB CONC 30.9 g/dl (32.0-36.5); MONO # 0.4 10^3/uL (0.0-0.8); MONO % 6.5 % (2.0-8.0); NEUTROPHILS # 4.5 10^3/uL (1.5-8.5); NEUTROPHILS % 78.5 % (36.0-66.0); PLATELET COUNT, AUTOMATED 152 10^3/uL (150-450); RED BLOOD COUNT 3.62 10^6/uL (4.30-6.10); WHITE BLOOD COUNT 5.7 10^3/uL (4.0-10.0)
[2021-07-24 08:03] LABS: ALBUMIN 2.5 GM/DL (3.2-5.2); BILIRUBIN,TOTAL 0.2 MG/DL (0.2-1.0); C REACTIVE PROTEIN QUANTITATIV 24.6 MG/DL (0.00-0.30); CREATININE FOR GFR 3.2 MG/DL (0.70-1.30); GLOMERULAR FILTRATION RATE 20.9 (>49); MAGNESIUM LEVEL 2.9 MG/DL (1.8-2.4); POTASSIUM SERUM 4.4 MEQ/L (3.5-5.1); TOTAL PROTEIN 6.9 GM/DL (6.4-8.2)
[2021-07-24] MEDS: CARVedilol 6.25 MG TAB PO SCH ×2 (09:00→20:13)
[2021-07-24] MEDS: AZELASTINE 137MCG NASAL SPY 30 ML (ASTELIN) SCH ×2 (09:46→21:19)
[2021-07-24] MEDS: FLUTICASONE PROP 0.05% NASAL SPRAY 16 GM (FLONASE) NARES SCH (09:46)
[2021-07-24] MEDS: lamoTRIgine 100MG TAB PO SCH ×2 (09:46→19:56)
[2021-07-24] MEDS: OMEPRAZOLE 20MG CAP PO SCH (09:47)
[2021-07-24] MEDS: hydrOXYzine 25 MG TAB PO SCH ×3 (09:47→19:56)
[2021-07-24] MEDS: APIXABAN 2.5 MG TAB (ELIQUIS) PO SCH ×2 (09:47→19:57)
[2021-07-24] MEDS: BENZTROPINE 1 MG TAB PO SCH ×2 (09:47→19:57)
[2021-07-24] MEDS: OLANZapine 5 MG TAB PO SCH ×3 (09:48→13:58)
[2021-07-24] MEDS: DOCUSATE SODIUM 100MG CAPSULE PO SCH ×2 (09:48→19:56)
[2021-07-24] MEDS: SUCRALFATE 1 GM TAB PO SCH ×4 (09:48→19:57)
[2021-07-24] MEDS: CALCITRIOL 0.25 MCG CAP (S0169) PO SCH (09:48)
[2021-07-24] MEDS: BARICITINIB 2MG TABLET (OLUMIANT) FOR EUA PO SCH (09:48)
[2021-07-24] MEDS: MULTIVITAMINS/MINERALS THERAP 1 TAB PO SCH (09:48)
[2021-07-24] MEDS: dexameTHASONE 4 MG/ML 1ML VIAL (J1100 PER 1MG) IV SCH (09:49)
[2021-07-24] MEDS: LITHIUM CARBONATE 150 MG CAP PO SCH ×2 (09:49→19:57)
[2021-07-24] MEDS: FERROUS GLUCONATE 324 MG TAB PO SCH (09:49)
[2021-07-24] MEDS: guaiFENesin ER 600 MG TAB PO SCH ×2 (12:16→19:56)
[2021-07-24] MEDS: ACETAMINOPHEN TAB 650MG DOSE (2X325MG) PO PRN (17:23)
[2021-07-24] MEDS: cefTRIAXone SOD 1 GM in D5W MINI-BAG PLUS 50 ML IV SCH (17:24)
[2021-07-24] MEDS: SODIUM CHLORIDE 0.9% INJ 10 ML SYR IV SCH (19:53)
[2021-07-24] MEDS: REMDESIVIR 100 MG in NS 250 ML IV SCH (19:53)
[2021-07-24] MEDS: OLANZapine 10 MG TAB PO SCH (19:56)
[2021-07-24] MEDS: FINASTERIDE 5 MG TAB PO SCH (20:03)
[2021-07-25] VITALS (14 sets, daily range): BP systolic 105–141; BP diastolic 59–81; O2SAT 83–98
[2021-07-25 06:22] LABS: BASO % 0.2 % (0.0-1.0); EOS # 0.2 10^3/uL (0.0-0.5); EOS % 2.4 % (0.0-3.0); HEMATOCRIT 35.7 % (42.0-52.0); LYMPH # 0.6 10^3/uL (1.5-5.0); LYMPH % 6.8 % (24.0-44.0); MEAN CORPUSCULAR HEMOGLOBIN 28.5 pg (27.0-33.0); MEAN CORPUSCULAR HGB CONC 30.8 g/dl (32.0-36.5); MEAN CORPUSCULAR VOLUME 92.5 fl (80.0-96.0); MONO # 0.6 10^3/uL (0.0-0.8); MONO % 6.3 % (2.0-8.0); NEUTROPHILS # 7.7 10^3/uL (1.5-8.5); NEUTROPHILS % 83.4 % (36.0-66.0); PLATELET COUNT, AUTOMATED 190 10^3/uL (150-450); RED BLOOD COUNT 3.86 10^6/uL (4.30-6.10); WHITE BLOOD COUNT 9.2 10^3/uL (4.0-10.0)
[2021-07-25 06:54] LABS: INR 1.3; PROTHROMBIN TIME 16.6 SECONDS (12.7-14.5)
[2021-07-25 06:55] LABS: PARTIAL THROMBOPLASTIN TIME 74.4 SECONDS (25.9-37.0)
[2021-07-25] MEDS: DOXYCYCLINE HYCLATE 100 MG in D5W MINI-BAG PLUS 100 ML IV SCH ×2 (06:55→18:04)
[2021-07-25 06:58] LABS: ALBUMIN 2.5 GM/DL (3.2-5.2); BILIRUBIN,TOTAL 0.3 MG/DL (0.2-1.0); CALCIUM LEVEL 9.5 MG/DL (8.8-10.2); CREATININE FOR GFR 2.77 MG/DL (0.70-1.30); GLOMERULAR FILTRATION RATE 24.6 (>49); MAGNESIUM LEVEL 2.5 MG/DL (1.8-2.4); POTASSIUM SERUM 4.3 MEQ/L (3.5-5.1); TOTAL PROTEIN 6.9 GM/DL (6.4-8.2)
[2021-07-25] MEDS: HumaLOG INSULIN (NovoLOG) PER UNIT SC SCH ×4 (07:30→19:49)
[2021-07-25] MEDS: OLANZapine 5 MG TAB PO SCH ×3 (08:00→15:33)
[2021-07-25] MEDS: DOCUSATE SODIUM 100MG CAPSULE PO SCH ×2 (09:00→19:37)
[2021-07-25] MEDS: BENZTROPINE 1 MG TAB PO SCH ×2 (09:00→19:34)
[2021-07-25] MEDS: OMEPRAZOLE 20MG CAP PO SCH (09:00)
[2021-07-25] MEDS: lamoTRIgine 100MG TAB PO SCH ×2 (09:00→19:38)
[2021-07-25] MEDS: CARVedilol 6.25 MG TAB PO SCH ×2 (09:00→19:37)
[2021-07-25] MEDS: SUCRALFATE 1 GM TAB PO SCH ×4 (09:00→19:34)
[2021-07-25] MEDS: LITHIUM CARBONATE 150 MG CAP PO SCH ×2 (09:00→19:33)
[2021-07-25] MEDS: FERROUS GLUCONATE 324 MG TAB PO SCH (09:00)
[2021-07-25] MEDS: BARICITINIB 2MG TABLET (OLUMIANT) FOR EUA PO SCH (09:00)
[2021-07-25] MEDS: MULTIVITAMINS/MINERALS THERAP 1 TAB PO SCH (09:00)
[2021-07-25] MEDS: hydrOXYzine 25 MG TAB PO SCH ×3 (09:00→19:37)
[2021-07-25] MEDS: APIXABAN 2.5 MG TAB (ELIQUIS) PO SCH ×2 (09:00→19:37)
[2021-07-25] MEDS: AZELASTINE 137MCG NASAL SPY 30 ML (ASTELIN) SCH ×2 (09:00→19:39)
[2021-07-25] MEDS: CALCITRIOL 0.25 MCG CAP (S0169) PO SCH (09:00)
[2021-07-25] MEDS: guaiFENesin ER 600 MG TAB PO SCH ×2 (09:00→19:33)
[2021-07-25] MEDS: FLUTICASONE PROP 0.05% NASAL SPRAY 16 GM (FLONASE) NARES SCH (09:00)
[2021-07-25] MEDS: dexameTHASONE 4 MG/ML 1ML VIAL (J1100 PER 1MG) IV SCH (10:06)
[2021-07-25 16:10] LABS: MYCOPLASMA PNEUMONIAE IgG 308 U/mL (0-99); MYCOPLASMA PNEUMONIAE IgM <770 U/mL (0-769)
[2021-07-25] MEDS: cefTRIAXone SOD 1 GM in D5W MINI-BAG PLUS 50 ML IV SCH (17:06)
[2021-07-25] MEDS: SODIUM CHLORIDE 0.9% INJ 10 ML SYR IV SCH (19:32)
[2021-07-25] MEDS: REMDESIVIR 100 MG in NS 250 ML IV SCH (19:33)
[2021-07-25] MEDS: FINASTERIDE 5 MG TAB PO SCH (19:37)
[2021-07-25] MEDS: OLANZapine 10 MG TAB PO SCH (19:39)
[2021-07-26] VITALS (8 sets, daily range): BP systolic 93–129; BP diastolic 57–83; O2SAT 93–97
[2021-07-26] MEDS: DOXYCYCLINE HYCLATE 100 MG in D5W MINI-BAG PLUS 100 ML IV SCH (06:39)
[2021-07-26 07:19] LABS: BASO % 0.3 % (0.0-1.0); EOS # 0.3 10^3/uL (0.0-0.5); EOS % 5.3 % (0.0-3.0); HEMATOCRIT 31.5 % (42.0-52.0); HEMOGLOBIN 9.5 g/dl (13.5-17.5); LYMPH # 0.7 10^3/uL (1.5-5.0); MEAN CORPUSCULAR HEMOGLOBIN 28.7 pg (27.0-33.0); MEAN CORPUSCULAR HGB CONC 30.2 g/dl (32.0-36.5); MEAN CORPUSCULAR VOLUME 95.2 fl (80.0-96.0); MONO # 0.6 10^3/uL (0.0-0.8); MONO % 9.7 % (2.0-8.0); NEUTROPHILS # 4.6 10^3/uL (1.5-8.5); NEUTROPHILS % 72.3 % (36.0-66.0); PLATELET COUNT, AUTOMATED 181 10^3/uL (150-450); RED BLOOD COUNT 3.31 10^6/uL (4.30-6.10); WHITE BLOOD COUNT 6.4 10^3/uL (4.0-10.0)
[2021-07-26 07:52] LABS: ALBUMIN 2.1 GM/DL (3.2-5.2); BILIRUBIN,TOTAL 0.2 MG/DL (0.2-1.0); CALCIUM LEVEL 9.9 MG/DL (8.8-10.2); CREATININE FOR GFR 2.28 MG/DL (0.70-1.30); GLOMERULAR FILTRATION RATE 30.8 (>49); MAGNESIUM LEVEL 2.5 MG/DL (1.8-2.4); POTASSIUM SERUM 4.2 MEQ/L (3.5-5.1); TOTAL PROTEIN 6.3 GM/DL (6.4-8.2)
[2021-07-26] MEDS: dexameTHASONE 4 MG/ML 1ML VIAL (J1100 PER 1MG) IV SCH (08:52)
[2021-07-26] MEDS: HumaLOG INSULIN (NovoLOG) PER UNIT SC SCH ×4 (08:52→21:00)
[2021-07-26] MEDS: OMEPRAZOLE 20MG CAP PO SCH (08:53)
[2021-07-26] MEDS: APIXABAN 2.5 MG TAB (ELIQUIS) PO SCH ×2 (08:53→21:23)
[2021-07-26] MEDS: CALCITRIOL 0.25 MCG CAP (S0169) PO SCH (08:53)
[2021-07-26] MEDS: BARICITINIB 2MG TABLET (OLUMIANT) FOR EUA PO SCH (08:53)
[2021-07-26] MEDS: DOCUSATE SODIUM 100MG CAPSULE PO SCH ×2 (08:53→21:22)
[2021-07-26] MEDS: MULTIVITAMINS/MINERALS THERAP 1 TAB PO SCH (08:54)
[2021-07-26] MEDS: guaiFENesin ER 600 MG TAB PO SCH ×2 (08:54→21:23)
[2021-07-26] MEDS: OLANZapine 5 MG TAB PO SCH ×3 (08:54→13:56)
[2021-07-26] MEDS: LITHIUM CARBONATE 150 MG CAP PO SCH ×2 (08:54→21:23)
[2021-07-26] MEDS: SUCRALFATE 1 GM TAB PO SCH ×4 (08:54→21:23)
[2021-07-26] MEDS: hydrOXYzine 25 MG TAB PO SCH ×3 (08:54→21:23)
[2021-07-26] MEDS: lamoTRIgine 100MG TAB PO SCH ×2 (08:54→21:22)
[2021-07-26] MEDS: BENZTROPINE 1 MG TAB PO SCH ×2 (08:55→21:22)
[2021-07-26] MEDS: FERROUS GLUCONATE 324 MG TAB PO SCH (08:55)
[2021-07-26] MEDS: CARVedilol 6.25 MG TAB PO SCH ×2 (09:00→21:23)
[2021-07-26] MEDS: FLUTICASONE PROP 0.05% NASAL SPRAY 16 GM (FLONASE) NARES SCH (09:00)
[2021-07-26] MEDS: AZELASTINE 137MCG NASAL SPY 30 ML (ASTELIN) SCH ×2 (09:00→21:24)
[2021-07-26 16:09] LABS: BODY FLUID CULTURE Not indicated. (.); LEGIONELLA ANTIGEN URINE Negative (Negative); ORGANISM ID Not indicated. (.); SPECIMEN SOURCE Urine (.); URINE STREP PNEUMONIAE ANTIGEN Negative (Negative)
[2021-07-26] MEDS: cefTRIAXone SOD 1 GM in D5W MINI-BAG PLUS 50 ML IV SCH (18:34)
[2021-07-26] MEDS: OLANZapine 10 MG TAB PO SCH (21:22)
[2021-07-26] MEDS: FINASTERIDE 5 MG TAB PO SCH (21:22)
[2021-07-26] MEDS: DOXYCYCLINE HYCLATE 100MG TABLET PO SCH (21:22)
[2021-07-26] MEDS: SODIUM CHLORIDE 0.9% INJ 10 ML SYR IV SCH (21:25)
[2021-07-26] MEDS: REMDESIVIR 100 MG in NS 250 ML IV SCH (21:25)
[2021-07-27] VITALS (7 sets, daily range): BP systolic 109–127; BP diastolic 62–84; O2SAT 92–94
[2021-07-27 07:21] LABS: BASO % 0.6 % (0.0-1.0); EOS # 0.5 10^3/uL (0.0-0.5); EOS % 6.6 % (0.0-3.0); HEMOGLOBIN 9.9 g/dl (13.5-17.5); LYMPH % 15.1 % (24.0-44.0); MEAN CORPUSCULAR HEMOGLOBIN 28.4 pg (27.0-33.0); MEAN CORPUSCULAR VOLUME 94.6 fl (80.0-96.0); MONO # 0.7 10^3/uL (0.0-0.8); NEUTROPHILS # 4.5 10^3/uL (1.5-8.5); NEUTROPHILS % 65.9 % (36.0-66.0); PLATELET COUNT, AUTOMATED 220 10^3/uL (150-450); RED BLOOD COUNT 3.49 10^6/uL (4.30-6.10); WHITE BLOOD COUNT 6.8 10^3/uL (4.0-10.0)
[2021-07-27 07:31] LABS: INR 1.24
[2021-07-27 07:33] LABS: PARTIAL THROMBOPLASTIN TIME 64.2 SECONDS (25.9-37.0)
[2021-07-27 07:47] LABS: ALBUMIN 2.2 GM/DL (3.2-5.2); BILIRUBIN,TOTAL 0.3 MG/DL (0.2-1.0); CALCIUM LEVEL 10.7 MG/DL (8.8-10.2); CREATININE FOR GFR 2.08 MG/DL (0.70-1.30); GLOMERULAR FILTRATION RATE 34.3 (>49); MAGNESIUM LEVEL 2.5 MG/DL (1.8-2.4); POTASSIUM SERUM 4.4 MEQ/L (3.5-5.1); TOTAL PROTEIN 6.3 GM/DL (6.4-8.2)
[2021-07-27] MEDS: dexameTHASONE 4 MG/ML 1ML VIAL (J1100 PER 1MG) IV SCH (08:50)
[2021-07-27] MEDS: HumaLOG INSULIN (NovoLOG) PER UNIT SC SCH ×4 (08:50→20:55)
[2021-07-27] MEDS: BARICITINIB 2MG TABLET (OLUMIANT) FOR EUA PO SCH (08:51)
[2021-07-27] MEDS: DOXYCYCLINE HYCLATE 100MG TABLET PO SCH ×2 (08:52→20:36)
[2021-07-27] MEDS: LITHIUM CARBONATE 150 MG CAP PO SCH ×2 (08:52→20:35)
[2021-07-27] MEDS: APIXABAN 2.5 MG TAB (ELIQUIS) PO SCH ×2 (08:53→20:36)
[2021-07-27] MEDS: CALCITRIOL 0.25 MCG CAP (S0169) PO SCH (08:53)
[2021-07-27] MEDS: hydrOXYzine 25 MG TAB PO SCH ×3 (08:53→20:36)
[2021-07-27] MEDS: OLANZapine 5 MG TAB PO SCH ×3 (08:53→16:13)
[2021-07-27] MEDS: CARVedilol 6.25 MG TAB PO SCH ×2 (08:53→20:36)
[2021-07-27] MEDS: BENZTROPINE 1 MG TAB PO SCH ×2 (08:53→20:36)
[2021-07-27] MEDS: lamoTRIgine 100MG TAB PO SCH ×2 (08:53→20:36)
[2021-07-27] MEDS: OMEPRAZOLE 20MG CAP PO SCH (08:54)
[2021-07-27] MEDS: AZELASTINE 137MCG NASAL SPY 30 ML (ASTELIN) SCH ×2 (08:54→20:37)
[2021-07-27] MEDS: guaiFENesin ER 600 MG TAB PO SCH ×2 (08:54→20:35)
[2021-07-27] MEDS: SUCRALFATE 1 GM TAB PO SCH ×4 (08:54→20:35)
[2021-07-27] MEDS: FERROUS GLUCONATE 324 MG TAB PO SCH (08:54)
[2021-07-27] MEDS: FLUTICASONE PROP 0.05% NASAL SPRAY 16 GM (FLONASE) NARES SCH (08:54)
[2021-07-27] MEDS: MULTIVITAMINS/MINERALS THERAP 1 TAB PO SCH (08:54)
[2021-07-27] MEDS: DOCUSATE SODIUM 100MG CAPSULE PO SCH ×2 (09:02→20:35)
[2021-07-27] MEDS: cefTRIAXone SOD 1 GM in D5W MINI-BAG PLUS 50 ML IV SCH (17:56)
[2021-07-27] MEDS: FINASTERIDE 5 MG TAB PO SCH (20:35)
[2021-07-27] MEDS: SODIUM CHLORIDE 0.9% INJ 10 ML SYR IV SCH (20:38)
[2021-07-27] MEDS: REMDESIVIR 100 MG in NS 250 ML IV SCH (20:38)
[2021-07-27] MEDS: OLANZapine 10 MG TAB PO SCH (20:40)
[2021-07-28] VITALS (10 sets, daily range): BP systolic 113–120; BP diastolic 58–75; O2SAT 86–96
[2021-07-28] MEDS: DOXYCYCLINE HYCLATE 100MG TABLET PO SCH ×2 (07:00→19:49)
[2021-07-28 07:07] LABS: BASO # 0.1 10^3/uL (0.0-0.2); BASO % 0.7 % (0.0-1.0); EOS # 0.4 10^3/uL (0.0-0.5); EOS % 5.4 % (0.0-3.0); HEMATOCRIT 33.8 % (42.0-52.0); HEMOGLOBIN 9.9 g/dl (13.5-17.5); LYMPH # 1.3 10^3/uL (1.5-5.0); MEAN CORPUSCULAR HEMOGLOBIN 28.2 pg (27.0-33.0); MEAN CORPUSCULAR HGB CONC 29.3 g/dl (32.0-36.5); MEAN CORPUSCULAR VOLUME 96.3 fl (80.0-96.0); MONO # 0.6 10^3/uL (0.0-0.8); MONO % 7.9 % (2.0-8.0); NEUTROPHILS # 4.9 10^3/uL (1.5-8.5); NEUTROPHILS % 65.1 % (36.0-66.0); PLATELET COUNT, AUTOMATED 276 10^3/uL (150-450); RED BLOOD COUNT 3.51 10^6/uL (4.30-6.10); WHITE BLOOD COUNT 7.5 10^3/uL (4.0-10.0)
[2021-07-28 07:41] LABS: ALBUMIN 2.3 GM/DL (3.2-5.2); BILIRUBIN,TOTAL 0.3 MG/DL (0.2-1.0); CALCIUM LEVEL 10.7 MG/DL (8.8-10.2); CREATININE FOR GFR 2.01 MG/DL (0.70-1.30); GLOMERULAR FILTRATION RATE 35.7 (>49); MAGNESIUM LEVEL 2.5 MG/DL (1.8-2.4); POTASSIUM SERUM 4.5 MEQ/L (3.5-5.1); TOTAL PROTEIN 6.3 GM/DL (6.4-8.2)
[2021-07-28] MEDS: dexameTHASONE 4 MG/ML 1ML VIAL (J1100 PER 1MG) IV SCH (08:37)
[2021-07-28] MEDS: FLUTICASONE PROP 0.05% NASAL SPRAY 16 GM (FLONASE) NARES SCH (08:38)
[2021-07-28] MEDS: AZELASTINE 137MCG NASAL SPY 30 ML (ASTELIN) SCH ×2 (08:38→19:52)
[2021-07-28] MEDS: MULTIVITAMINS/MINERALS THERAP 1 TAB PO SCH (08:38)
[2021-07-28] MEDS: HumaLOG INSULIN (NovoLOG) PER UNIT SC SCH ×4 (08:38→19:51)
[2021-07-28] MEDS: CALCITRIOL 0.25 MCG CAP (S0169) PO SCH (08:39)
[2021-07-28] MEDS: guaiFENesin ER 600 MG TAB PO SCH ×2 (08:39→19:50)
[2021-07-28] MEDS: OMEPRAZOLE 20MG CAP PO SCH (08:39)
[2021-07-28] MEDS: lamoTRIgine 100MG TAB PO SCH ×2 (08:39→19:49)
[2021-07-28] MEDS: BARICITINIB 2MG TABLET (OLUMIANT) FOR EUA PO SCH (08:39)
[2021-07-28] MEDS: LITHIUM CARBONATE 150 MG CAP PO SCH ×2 (08:39→19:50)
[2021-07-28] MEDS: hydrOXYzine 25 MG TAB PO SCH ×3 (08:40→23:09)
[2021-07-28] MEDS: SUCRALFATE 1 GM TAB PO SCH ×4 (08:40→23:09)
[2021-07-28] MEDS: BENZTROPINE 1 MG TAB PO SCH ×2 (08:40→19:50)
[2021-07-28] MEDS: DOCUSATE SODIUM 100MG CAPSULE PO SCH ×2 (08:40→23:09)
[2021-07-28] MEDS: FERROUS GLUCONATE 324 MG TAB PO SCH (08:40)
[2021-07-28] MEDS: CARVedilol 6.25 MG TAB PO SCH ×2 (08:40→19:49)
[2021-07-28] MEDS: OLANZapine 5 MG TAB PO SCH ×3 (08:40→17:10)
[2021-07-28] MEDS: APIXABAN 2.5 MG TAB (ELIQUIS) PO SCH ×2 (08:40→19:51)
[2021-07-28] MEDS: ACETAMINOPHEN TAB 650MG DOSE (2X325MG) PO PRN (12:16)
[2021-07-28] MEDS: cefTRIAXone SOD 1 GM in D5W MINI-BAG PLUS 50 ML IV SCH (17:45)
[2021-07-28] MEDS: FINASTERIDE 5 MG TAB PO SCH (19:49)
[2021-07-28] MEDS: OLANZapine 10 MG TAB PO SCH (19:50)
[2021-07-29] VITALS (8 sets, daily range): BP systolic 114–137; BP diastolic 72–83; O2SAT 93–95
[2021-07-29] MEDS: DOXYCYCLINE HYCLATE 100MG TABLET PO SCH ×2 (06:16→18:37)
[2021-07-29] MEDS: OLANZapine 5 MG TAB PO SCH ×3 (08:01→14:00)
[2021-07-29] MEDS: LITHIUM CARBONATE 150 MG CAP PO SCH ×2 (08:01→20:27)
[2021-07-29] MEDS: hydrOXYzine 25 MG TAB PO SCH ×3 (08:01→20:27)
[2021-07-29] MEDS: APIXABAN 2.5 MG TAB (ELIQUIS) PO SCH ×2 (08:01→20:27)
[2021-07-29] MEDS: CARVedilol 6.25 MG TAB PO SCH ×2 (08:01→20:27)
[2021-07-29] MEDS: BARICITINIB 2MG TABLET (OLUMIANT) FOR EUA PO SCH (08:02)
[2021-07-29] MEDS: DOCUSATE SODIUM 100MG CAPSULE PO SCH ×2 (08:02→20:28)
[2021-07-29] MEDS: ACETAMINOPHEN TAB 650MG DOSE (2X325MG) PO PRN (08:02)
[2021-07-29] MEDS: SUCRALFATE 1 GM TAB PO SCH ×4 (08:02→20:28)
[2021-07-29] MEDS: OMEPRAZOLE 20MG CAP PO SCH (08:02)
[2021-07-29] MEDS: guaiFENesin ER 600 MG TAB PO SCH ×2 (08:03→20:27)
[2021-07-29] MEDS: MULTIVITAMINS/MINERALS THERAP 1 TAB PO SCH (08:03)
[2021-07-29] MEDS: BENZTROPINE 1 MG TAB PO SCH ×2 (08:03→20:27)
[2021-07-29] MEDS: lamoTRIgine 100MG TAB PO SCH ×2 (08:03→20:27)
[2021-07-29] MEDS: FERROUS GLUCONATE 324 MG TAB PO SCH (08:03)
[2021-07-29] MEDS: AZELASTINE 137MCG NASAL SPY 30 ML (ASTELIN) SCH ×2 (08:09→21:00)
[2021-07-29] MEDS: FLUTICASONE PROP 0.05% NASAL SPRAY 16 GM (FLONASE) NARES SCH (08:09)
[2021-07-29] MEDS: dexameTHASONE 4 MG/ML 1ML VIAL (J1100 PER 1MG) IV SCH (08:09)
[2021-07-29] MEDS: HumaLOG INSULIN (NovoLOG) PER UNIT SC SCH ×4 (08:10→21:00)
[2021-07-29] MEDS: cefTRIAXone SOD 1 GM in D5W MINI-BAG PLUS 50 ML IV SCH (18:37)
[2021-07-29] MEDS: FINASTERIDE 5 MG TAB PO SCH (20:28)
[2021-07-29] MEDS: OLANZapine 10 MG TAB PO SCH (20:47)
[2021-07-30] VITALS: BP 113/67
[2021-07-30 04:00] VITALS: BP 131/76
[2021-07-30] MEDS: DOXYCYCLINE HYCLATE 100MG TABLET PO SCH ×2 (06:23→18:19)
[2021-07-30 08:00] VITALS: BP 125/76
[2021-07-30] MEDS: HumaLOG INSULIN (NovoLOG) PER UNIT SC SCH ×4 (08:52→21:00)
[2021-07-30] MEDS: dexameTHASONE 4 MG/ML 1ML VIAL (J1100 PER 1MG) IV SCH (08:52)
[2021-07-30] MEDS: BARICITINIB 2MG TABLET (OLUMIANT) FOR EUA PO SCH (08:53)
[2021-07-30] MEDS: OMEPRAZOLE 20MG CAP PO SCH (08:53)
[2021-07-30] MEDS: lamoTRIgine 100MG TAB PO SCH ×2 (08:53→21:26)
[2021-07-30] MEDS: DOCUSATE SODIUM 100MG CAPSULE PO SCH ×2 (08:53→21:26)
[2021-07-30] MEDS: CARVedilol 6.25 MG TAB PO SCH ×2 (08:53→21:28)
[2021-07-30] MEDS: hydrOXYzine 25 MG TAB PO SCH ×3 (08:54→21:27)
[2021-07-30] MEDS: APIXABAN 2.5 MG TAB (ELIQUIS) PO SCH ×2 (08:54→21:27)
[2021-07-30] MEDS: guaiFENesin ER 600 MG TAB PO SCH ×2 (08:54→21:26)
[2021-07-30] MEDS: LITHIUM CARBONATE 150 MG CAP PO SCH ×2 (08:55→21:26)
[2021-07-30] MEDS: SUCRALFATE 1 GM TAB PO SCH ×4 (08:55→21:26)
[2021-07-30] MEDS: OLANZapine 5 MG TAB PO SCH ×2 (08:55→14:09)
[2021-07-30] MEDS: MULTIVITAMINS/MINERALS THERAP 1 TAB PO SCH (08:55)
[2021-07-30] MEDS: BENZTROPINE 1 MG TAB PO SCH ×2 (08:55→21:26)
[2021-07-30] MEDS: FERROUS GLUCONATE 324 MG TAB PO SCH (08:55)
[2021-07-30] MEDS: AZELASTINE 137MCG NASAL SPY 30 ML (ASTELIN) SCH ×2 (08:55→21:26)
[2021-07-30] MEDS: FLUTICASONE PROP 0.05% NASAL SPRAY 16 GM (FLONASE) NARES SCH (08:55)
[2021-07-30 11:13] LABS: HEMOGLOBIN 10.4 g/dl (13.5-17.5); MEAN CORPUSCULAR HEMOGLOBIN 28.7 pg (27.0-33.0); MEAN CORPUSCULAR HGB CONC 30.6 g/dl (32.0-36.5); MEAN CORPUSCULAR VOLUME 93.7 fl (80.0-96.0); PLATELET COUNT, AUTOMATED 325 10^3/uL (150-450); RED BLOOD COUNT 3.63 10^6/uL (4.30-6.10); WHITE BLOOD COUNT 10.3 10^3/uL (4.0-10.0)
[2021-07-30 11:40] LABS: ALBUMIN 2.5 GM/DL (3.2-5.2); BILIRUBIN,TOTAL 0.3 MG/DL (0.2-1.0); CREATININE FOR GFR 1.79 MG/DL (0.70-1.30); GLOMERULAR FILTRATION RATE 40.8 (>49); MAGNESIUM LEVEL 2.7 MG/DL (1.8-2.4); POTASSIUM SERUM 4.7 MEQ/L (3.5-5.1); TOTAL PROTEIN 6.1 GM/DL (6.4-8.2)
[2021-07-30 11:56] LABS: ATYPICAL LYMPH 1 % (0-5); EOSINOPHILS 2 % (0-3); LYMPHOCYTES 13 % (16-44); METAMYELOCYTES 3 % (0-0); MONOCYTES 2 % (0-5); MYELOCYTES 4 % (0-0); NEUTROPHILS 74 % (28-66)
[2021-07-30 11:57] LABS: ANISOCYTOSIS 1+; PLATELET ESTIMATE NORMAL (NORMAL)
[2021-07-30 12:00] VITALS: BP 128/84
[2021-07-30] MEDS: cefTRIAXone SOD 1 GM in D5W MINI-BAG PLUS 50 ML IV SCH (18:20)
[2021-07-30 20:00] VITALS: BP 114/74; O2SAT 95
[2021-07-30] MEDS: OLANZapine 10 MG TAB PO SCH (21:26)
[2021-07-30] MEDS: FINASTERIDE 5 MG TAB PO SCH (21:26)
[2021-07-31] VITALS (11 sets, daily range): BP systolic 98–126; BP diastolic 59–79; O2SAT 90–99
[2021-07-31] MEDS: DOXYCYCLINE HYCLATE 100MG TABLET PO SCH ×2 (06:41→18:07)
[2021-07-31 07:28] LABS: HEMATOCRIT 34.9 % (42.0-52.0); HEMOGLOBIN 10.7 g/dl (13.5-17.5); MEAN CORPUSCULAR HEMOGLOBIN 28.5 pg (27.0-33.0); MEAN CORPUSCULAR HGB CONC 30.7 g/dl (32.0-36.5); MEAN CORPUSCULAR VOLUME 93.1 fl (80.0-96.0); PLATELET COUNT, AUTOMATED 345 10^3/uL (150-450); RED BLOOD COUNT 3.75 10^6/uL (4.30-6.10); WHITE BLOOD COUNT 10.8 10^3/uL (4.0-10.0)
[2021-07-31 07:53] LABS: CALCIUM LEVEL 10.4 MG/DL (8.8-10.2); CREATININE FOR GFR 1.91 MG/DL (0.70-1.30); GLOMERULAR FILTRATION RATE 37.8 (>49); POTASSIUM SERUM 4.6 MEQ/L (3.5-5.1)
[2021-07-31 07:56] LABS: ALBUMIN 2.4 GM/DL (3.2-5.2); ALT/SGPT 33 U/L (12-78); BILIRUBIN,DIRECT < 0.1 MG/DL (0.0-0.2); BILIRUBIN,TOTAL 0.3 MG/DL (0.2-1.0); MAGNESIUM LEVEL 2.4 MG/DL (1.8-2.4); TOTAL PROTEIN 6.5 GM/DL (6.4-8.2)
[2021-07-31 08:04] LABS: ANISOCYTOSIS 1+; ATYPICAL LYMPH 5 % (0-5); EOSINOPHILS 1 % (0-3); LYMPHOCYTES 21 % (16-44); METAMYELOCYTES 1 % (0-0); MONOCYTES 5 % (0-5); MYELOCYTES 3 % (0-0); NEUTROPHILS 64 % (28-66); PLATELET ESTIMATE NORMAL (NORMAL); POIKILOCYTOSIS 1+
[2021-07-31 08:05] LABS: POLYCHROMASIA 1+
[2021-07-31] MEDS: dexameTHASONE 4 MG/ML 1ML VIAL (J1100 PER 1MG) IV SCH (08:34)
[2021-07-31] MEDS: OLANZapine 5 MG TAB PO SCH ×3 (08:34→15:18)
[2021-07-31] MEDS: BARICITINIB 2MG TABLET (OLUMIANT) FOR EUA PO SCH (08:34)
[2021-07-31] MEDS: HumaLOG INSULIN (NovoLOG) PER UNIT SC SCH ×4 (08:34→19:54)
[2021-07-31] MEDS: lamoTRIgine 100MG TAB PO SCH ×2 (08:35→19:52)
[2021-07-31] MEDS: CARVedilol 6.25 MG TAB PO SCH ×2 (08:35→19:48)
[2021-07-31] MEDS: BENZTROPINE 1 MG TAB PO SCH ×2 (08:36→19:48)
[2021-07-31] MEDS: MULTIVITAMINS/MINERALS THERAP 1 TAB PO SCH (08:36)
[2021-07-31] MEDS: hydrOXYzine 25 MG TAB PO SCH ×3 (08:36→19:53)
[2021-07-31] MEDS: SUCRALFATE 1 GM TAB PO SCH ×4 (08:36→19:48)
[2021-07-31] MEDS: APIXABAN 2.5 MG TAB (ELIQUIS) PO SCH ×2 (08:36→19:49)
[2021-07-31] MEDS: guaiFENesin ER 600 MG TAB PO SCH ×2 (08:36→19:48)
[2021-07-31] MEDS: CALCITRIOL 0.25 MCG CAP (S0169) PO SCH (08:36)
[2021-07-31] MEDS: FERROUS GLUCONATE 324 MG TAB PO SCH (08:36)
[2021-07-31] MEDS: LITHIUM CARBONATE 150 MG CAP PO SCH ×2 (08:36→19:53)
[2021-07-31] MEDS: DOCUSATE SODIUM 100MG CAPSULE PO SCH ×2 (08:36→19:49)
[2021-07-31] MEDS: AZELASTINE 137MCG NASAL SPY 30 ML (ASTELIN) SCH ×2 (08:37→20:09)
[2021-07-31] MEDS: FLUTICASONE PROP 0.05% NASAL SPRAY 16 GM (FLONASE) NARES SCH (08:37)
[2021-07-31] MEDS: OMEPRAZOLE 20MG CAP PO SCH (08:38)
[2021-07-31] MEDS: cefTRIAXone SOD 1 GM in D5W MINI-BAG PLUS 50 ML IV SCH (18:08)
[2021-07-31] MEDS: FINASTERIDE 5 MG TAB PO SCH (19:48)
[2021-07-31] MEDS: OLANZapine 10 MG TAB PO SCH (19:49)
[2021-08-01] VITALS (7 sets, daily range): BP systolic 103–115; BP diastolic 63–72; O2SAT 92–97
[2021-08-01] MEDS: DOXYCYCLINE HYCLATE 100MG TABLET PO SCH ×2 (05:40→18:10)
[2021-08-01 06:14] LABS: HEMATOCRIT 33.8 % (42.0-52.0); HEMOGLOBIN 10.2 g/dl (13.5-17.5); MEAN CORPUSCULAR HEMOGLOBIN 28.5 pg (27.0-33.0); MEAN CORPUSCULAR HGB CONC 30.2 g/dl (32.0-36.5); MEAN CORPUSCULAR VOLUME 94.4 fl (80.0-96.0); PLATELET COUNT, AUTOMATED 317 10^3/uL (150-450); RED BLOOD COUNT 3.58 10^6/uL (4.30-6.10); WHITE BLOOD COUNT 11.1 10^3/uL (4.0-10.0)
[2021-08-01 06:27] LABS: INR 1.03; PROTHROMBIN TIME 13.9 SECONDS (12.7-14.5)
[2021-08-01 06:28] LABS: PARTIAL THROMBOPLASTIN TIME 53.9 SECONDS (25.9-37.0)
[2021-08-01 06:39] LABS: CALCIUM LEVEL 10.4 MG/DL (8.8-10.2); CREATININE FOR GFR 1.91 MG/DL (0.70-1.30); GLOMERULAR FILTRATION RATE 37.8 (>49); MAGNESIUM LEVEL 2.4 MG/DL (1.8-2.4); POTASSIUM SERUM 4.2 MEQ/L (3.5-5.1)
[2021-08-01 06:53] LABS: ATYPICAL LYMPH 2 % (0-5); EOSINOPHILS 1 % (0-3); LYMPHOCYTES 18 % (16-44); METAMYELOCYTES 2 % (0-0); MONOCYTES 9 % (0-5); MYELOCYTES 3 % (0-0); NEUTROPHILS 65 % (28-66); PLATELET ESTIMATE NORMAL (NORMAL)
[2021-08-01 06:55] LABS: OVALOCYTES 1+
[2021-08-01] MEDS: HumaLOG INSULIN (NovoLOG) PER UNIT SC SCH ×4 (08:58→21:00)
[2021-08-01] MEDS: LEVEMIR (INSULIN DETEMIR) 1 UNITS/0.01ML SC SCH (08:59)
[2021-08-01] MEDS: lamoTRIgine 100MG TAB PO SCH ×2 (08:59→21:19)
[2021-08-01] MEDS: FLUTICASONE PROP 0.05% NASAL SPRAY 16 GM (FLONASE) NARES SCH (08:59)
[2021-08-01] MEDS: AZELASTINE 137MCG NASAL SPY 30 ML (ASTELIN) SCH ×2 (08:59→21:29)
[2021-08-01] MEDS: dexameTHASONE 4 MG/ML 1ML VIAL (J1100 PER 1MG) IV SCH (08:59)
[2021-08-01] MEDS: APIXABAN 2.5 MG TAB (ELIQUIS) PO SCH ×2 (08:59→21:19)
[2021-08-01] MEDS: OLANZapine 5 MG TAB PO SCH ×3 (09:00→16:11)
[2021-08-01] MEDS: LITHIUM CARBONATE 150 MG CAP PO SCH ×2 (09:00→21:19)
[2021-08-01] MEDS: hydrOXYzine 25 MG TAB PO SCH ×3 (09:01→21:19)
[2021-08-01] MEDS: FERROUS GLUCONATE 324 MG TAB PO SCH (09:01)
[2021-08-01] MEDS: CARVedilol 6.25 MG TAB PO SCH ×2 (09:01→21:18)
[2021-08-01] MEDS: BENZTROPINE 1 MG TAB PO SCH ×2 (09:01→21:18)
[2021-08-01] MEDS: OMEPRAZOLE 20MG CAP PO SCH (09:01)
[2021-08-01] MEDS: CALCITRIOL 0.25 MCG CAP (S0169) PO SCH (09:01)
[2021-08-01] MEDS: DOCUSATE SODIUM 100MG CAPSULE PO SCH ×2 (09:01→21:18)
[2021-08-01] MEDS: BARICITINIB 2MG TABLET (OLUMIANT) FOR EUA PO SCH (09:01)
[2021-08-01] MEDS: SUCRALFATE 1 GM TAB PO SCH ×4 (09:01→21:19)
[2021-08-01] MEDS: MULTIVITAMINS/MINERALS THERAP 1 TAB PO SCH (09:01)
[2021-08-01] MEDS: guaiFENesin ER 600 MG TAB PO SCH ×2 (09:02→21:19)
[2021-08-01] MEDS: cefTRIAXone SOD 1 GM in D5W MINI-BAG PLUS 50 ML IV SCH (18:07)
[2021-08-01] MEDS: OLANZapine 10 MG TAB PO SCH (21:16)
[2021-08-01] MEDS: FINASTERIDE 5 MG TAB PO SCH (21:18)
[2021-08-02] VITALS (7 sets, daily range): BP systolic 98–111; BP diastolic 59–64; O2SAT 92–94
[2021-08-02] MEDS: DOXYCYCLINE HYCLATE 100MG TABLET PO SCH ×2 (05:57→18:01)
[2021-08-02 06:16] LABS: HEMATOCRIT 32.4 % (42.0-52.0); MEAN CORPUSCULAR HEMOGLOBIN 28.6 pg (27.0-33.0); MEAN CORPUSCULAR HGB CONC 30.9 g/dl (32.0-36.5); MEAN CORPUSCULAR VOLUME 92.6 fl (80.0-96.0); PLATELET COUNT, AUTOMATED 314 10^3/uL (150-450); WHITE BLOOD COUNT 11.5 10^3/uL (4.0-10.0)
[2021-08-02 06:41] LABS: ALBUMIN 2.5 GM/DL (3.2-5.2); BILIRUBIN,TOTAL 0.2 MG/DL (0.2-1.0); CALCIUM LEVEL 10.9 MG/DL (8.8-10.2); CREATININE FOR GFR 1.85 MG/DL (0.70-1.30); GLOMERULAR FILTRATION RATE 39.3 (>49); POTASSIUM SERUM 4.2 MEQ/L (3.5-5.1); TOTAL PROTEIN 6.3 GM/DL (6.4-8.2)
[2021-08-02] MEDS: CARVedilol 6.25 MG TAB PO SCH ×2 (09:00→21:00)
[2021-08-02] MEDS: lamoTRIgine 100MG TAB PO SCH ×2 (09:04→22:16)
[2021-08-02] MEDS: BENZTROPINE 1 MG TAB PO SCH ×2 (09:04→22:15)
[2021-08-02] MEDS: OMEPRAZOLE 20MG CAP PO SCH (09:04)
[2021-08-02] MEDS: LITHIUM CARBONATE 150 MG CAP PO SCH ×2 (09:04→21:00)
[2021-08-02] MEDS: MULTIVITAMINS/MINERALS THERAP 1 TAB PO SCH (09:04)
[2021-08-02] MEDS: SUCRALFATE 1 GM TAB PO SCH ×4 (09:05→22:09)
[2021-08-02] MEDS: APIXABAN 2.5 MG TAB (ELIQUIS) PO SCH ×2 (09:05→21:00)
[2021-08-02] MEDS: guaiFENesin ER 600 MG TAB PO SCH ×2 (09:05→22:16)
[2021-08-02] MEDS: OLANZapine 5 MG TAB PO SCH ×3 (09:05→13:44)
[2021-08-02] MEDS: DOCUSATE SODIUM 100MG CAPSULE PO SCH ×2 (09:05→22:15)
[2021-08-02] MEDS: FERROUS GLUCONATE 324 MG TAB PO SCH (09:05)
[2021-08-02] MEDS: hydrOXYzine 25 MG TAB PO SCH ×3 (09:05→21:00)
[2021-08-02] MEDS: BARICITINIB 2MG TABLET (OLUMIANT) FOR EUA PO SCH (09:06)
[2021-08-02] MEDS: CALCITRIOL 0.25 MCG CAP (S0169) PO SCH (09:06)
[2021-08-02] MEDS: HumaLOG INSULIN (NovoLOG) PER UNIT SC SCH ×4 (09:06→21:00)
[2021-08-02] MEDS: FLUTICASONE PROP 0.05% NASAL SPRAY 16 GM (FLONASE) NARES SCH (09:07)
[2021-08-02] MEDS: AZELASTINE 137MCG NASAL SPY 30 ML (ASTELIN) SCH ×2 (09:07→22:17)
[2021-08-02] MEDS: LEVEMIR (INSULIN DETEMIR) 1 UNITS/0.01ML SC SCH (09:07)
[2021-08-02] MEDS: cefTRIAXone SOD 1 GM in D5W MINI-BAG PLUS 50 ML IV SCH (17:24)
[2021-08-02] MEDS: OLANZapine 10 MG TAB PO SCH (22:15)
[2021-08-02] MEDS: FINASTERIDE 5 MG TAB PO SCH (22:17)
[2021-08-03] VITALS (7 sets, daily range): BP systolic 106–128; BP diastolic 63–82; O2SAT 92–94
[2021-08-03] MEDS: DOXYCYCLINE HYCLATE 100MG TABLET PO SCH ×2 (06:56→18:20)
[2021-08-03 08:08] LABS: HEMATOCRIT 36.8 % (42.0-52.0); HEMOGLOBIN 10.9 g/dl (13.5-17.5); MEAN CORPUSCULAR HGB CONC 29.6 g/dl (32.0-36.5); MEAN CORPUSCULAR VOLUME 94.6 fl (80.0-96.0); PLATELET COUNT, AUTOMATED 288 10^3/uL (150-450); RED BLOOD COUNT 3.89 10^6/uL (4.30-6.10); WHITE BLOOD COUNT 7.7 10^3/uL (4.0-10.0)
[2021-08-03] MEDS: BENZTROPINE 1 MG TAB PO SCH ×2 (08:13→20:56)
[2021-08-03] MEDS: MULTIVITAMINS/MINERALS THERAP 1 TAB PO SCH (08:13)
[2021-08-03] MEDS: lamoTRIgine 100MG TAB PO SCH ×2 (08:13→20:56)
[2021-08-03] MEDS: CALCITRIOL 0.25 MCG CAP (S0169) PO SCH (08:13)
[2021-08-03] MEDS: SUCRALFATE 1 GM TAB PO SCH ×4 (08:13→20:57)
[2021-08-03] MEDS: LITHIUM CARBONATE 150 MG CAP PO SCH ×2 (08:14→20:56)
[2021-08-03] MEDS: OMEPRAZOLE 20MG CAP PO SCH (08:14)
[2021-08-03] MEDS: APIXABAN 2.5 MG TAB (ELIQUIS) PO SCH ×2 (08:15→20:57)
[2021-08-03] MEDS: BARICITINIB 2MG TABLET (OLUMIANT) FOR EUA PO SCH (08:15)
[2021-08-03] MEDS: DOCUSATE SODIUM 100MG CAPSULE PO SCH ×2 (08:15→20:57)
[2021-08-03] MEDS: FERROUS GLUCONATE 324 MG TAB PO SCH (08:15)
[2021-08-03] MEDS: OLANZapine 5 MG TAB PO SCH ×3 (08:15→13:52)
[2021-08-03] MEDS: guaiFENesin ER 600 MG TAB PO SCH ×2 (08:15→20:57)
[2021-08-03] MEDS: LEVEMIR (INSULIN DETEMIR) 1 UNITS/0.01ML SC SCH (08:16)
[2021-08-03] MEDS: HumaLOG INSULIN (NovoLOG) PER UNIT SC SCH ×4 (08:16→20:44)
[2021-08-03] MEDS: hydrOXYzine 25 MG TAB PO SCH ×3 (08:16→20:56)
[2021-08-03] MEDS: CARVedilol 6.25 MG TAB PO SCH ×2 (08:17→20:56)
[2021-08-03 08:20] LABS: INR 0.97; PROTHROMBIN TIME 13.3 SECONDS (12.7-14.5)
[2021-08-03 08:21] LABS: PARTIAL THROMBOPLASTIN TIME 47.3 SECONDS (25.9-37.0)
[2021-08-03] MEDS: AZELASTINE 137MCG NASAL SPY 30 ML (ASTELIN) SCH ×2 (08:21→20:57)
[2021-08-03] MEDS: FLUTICASONE PROP 0.05% NASAL SPRAY 16 GM (FLONASE) NARES SCH (08:21)
[2021-08-03 09:05] LABS: ALBUMIN 2.6 GM/DL (3.2-5.2); ALT/SGPT 63 U/L (12-78); BILIRUBIN,DIRECT < 0.1 MG/DL (0.0-0.2); BILIRUBIN,TOTAL 0.4 MG/DL (0.2-1.0); BLOOD UREA NITROGEN 39 MG/DL (7-18); CALCIUM LEVEL 10.4 MG/DL (8.8-10.2); CARBON DIOXIDE LEVEL 36 MEQ/L (21-32); CHLORIDE LEVEL 101 MEQ/L (98-107); CREATININE FOR GFR 1.93 MG/DL (0.70-1.30); FERRITIN 312 NG/ML (26-388); GLOMERULAR FILTRATION RATE 37.4 (>49); GLUCOSE, FASTING 165 MG/DL (70-100); LDH LACTATE DEHYDROGENASE 140 U/L (87-241); NT-PRO BNP 72 PG/ML (<125); POTASSIUM SERUM 4.1 MEQ/L (3.5-5.1); SODIUM LEVEL 141 MEQ/L (136-145); TOTAL PROTEIN 6.6 GM/DL (6.4-8.2)
[2021-08-03] MEDS ORDERED: MUCI600T31 PO (17:57)
[2021-08-03] MEDS ORDERED: DOXY-350 PO (17:59)
[2021-08-03] MEDS ORDERED: PRED10TA2 PO (18:00)
[2021-08-03] MEDS: OLANZapine 10 MG TAB PO SCH (20:57)
[2021-08-03] MEDS: FINASTERIDE 5 MG TAB PO SCH (20:57)
[2021-08-04] VITALS: O2SAT 94
[2021-08-04 04:00] VITALS: BP 123/73; O2SAT 93
[2021-08-04 06:00] VITALS: O2SAT 93
[2021-08-04 06:05] VITALS: O2SAT 92
[2021-08-04] MEDS: DOXYCYCLINE HYCLATE 100MG TABLET PO SCH (06:13)
[2021-08-04 06:53] LABS: HEMATOCRIT 36.2 % (42.0-52.0); HEMOGLOBIN 11.1 g/dl (13.5-17.5); MEAN CORPUSCULAR HGB CONC 30.7 g/dl (32.0-36.5); MEAN CORPUSCULAR VOLUME 94.5 fl (80.0-96.0); PLATELET COUNT, AUTOMATED 257 10^3/uL (150-450); RED BLOOD COUNT 3.83 10^6/uL (4.30-6.10); WHITE BLOOD COUNT 8.9 10^3/uL (4.0-10.0)
[2021-08-04 07:16] LABS: ALBUMIN 2.6 GM/DL (3.2-5.2); BILIRUBIN,TOTAL 0.3 MG/DL (0.2-1.0); CALCIUM LEVEL 10.3 MG/DL (8.8-10.2); CREATININE FOR GFR 1.72 MG/DL (0.70-1.30); GLOMERULAR FILTRATION RATE 42.7 (>49); POTASSIUM SERUM 4.5 MEQ/L (3.5-5.1); TOTAL PROTEIN 6.4 GM/DL (6.4-8.2)
[2021-08-04] MEDS: BARICITINIB 2MG TABLET (OLUMIANT) FOR EUA PO SCH (08:30)
[2021-08-04] MEDS: MULTIVITAMINS/MINERALS THERAP 1 TAB PO SCH (08:30)
[2021-08-04 08:31] VITALS: BP 120/78
[2021-08-04] MEDS: DOCUSATE SODIUM 100MG CAPSULE PO SCH (08:31)
[2021-08-04] MEDS: FERROUS GLUCONATE 324 MG TAB PO SCH (08:31)
[2021-08-04] MEDS: SUCRALFATE 1 GM TAB PO SCH ×2 (08:31→12:33)
[2021-08-04] MEDS: hydrOXYzine 25 MG TAB PO SCH (08:31)
[2021-08-04] MEDS: LITHIUM CARBONATE 150 MG CAP PO SCH (08:31)
[2021-08-04] MEDS: CALCITRIOL 0.25 MCG CAP (S0169) PO SCH (08:31)
[2021-08-04] MEDS: CARVedilol 6.25 MG TAB PO SCH (08:31)
[2021-08-04] MEDS: APIXABAN 2.5 MG TAB (ELIQUIS) PO SCH (08:31)
[2021-08-04] MEDS: BENZTROPINE 1 MG TAB PO SCH (08:31)
[2021-08-04] MEDS: guaiFENesin ER 600 MG TAB PO SCH (08:32)
[2021-08-04] MEDS: OLANZapine 5 MG TAB PO SCH ×3 (08:32→14:39)
[2021-08-04] MEDS: lamoTRIgine 100MG TAB PO SCH (08:32)
[2021-08-04] MEDS: OMEPRAZOLE 20MG CAP PO SCH (08:32)
[2021-08-04] MEDS: LEVEMIR (INSULIN DETEMIR) 1 UNITS/0.01ML SC SCH (08:32)
[2021-08-04] MEDS: HumaLOG INSULIN (NovoLOG) PER UNIT SC SCH ×2 (08:33→12:34)
[2021-08-04] MEDS: FLUTICASONE PROP 0.05% NASAL SPRAY 16 GM (FLONASE) NARES SCH (08:33)
[2021-08-04] MEDS: AZELASTINE 137MCG NASAL SPY 30 ML (ASTELIN) SCH (08:33)
== END 2021-08-04 16:00 | DRG 177 ==
LOC: M ED 13:39 → M ED INP 17:20 → UNDOADMIN 17:20 → M 4MAIN 17:20 → ENRESERV 18:28 → M 4MAIN 21:29 → M ED INP 21:29 → M 4MAIN 07-30 20:24
PROVIDERS: ADMIT Internal Medicine; ATTEND Internal Medicine
DX: U07.1 COVID-19 (principal); J12.82 Pneumonia due to coronavirus disease 2019; J96.01 Acute respiratory failure with hypoxia; G93.41 Metabolic encephalopathy; I13.0 Hypertensive heart and chronic kidney disease with heart failure and stage 1 through stage 4 chronic kidney disease, or unspecified chronic kidney disease; N17.9 Acute kidney failure, unspecified; N25.81 Secondary hyperparathyroidism of renal origin; N18.30 Chronic kidney disease, stage 3 unspecified; E11.9 Type 2 diabetes mellitus without complications; K21.9 Gastro-esophageal reflux disease without esophagitis; G40.909 Epilepsy, unspecified, not intractable, without status epilepticus; D50.9 Iron deficiency anemia, unspecified; N40.0 Benign prostatic hyperplasia without lower urinary tract symptoms; F79 Unspecified intellectual disabilities; Z79.01 Long term (current) use of anticoagulants; F25.9 Schizoaffective disorder, unspecified; Z79.899 Other long term (current) drug therapy; Z88.6 Allergy status to analgesic agent

== ENCOUNTER → 2021-09-28 | Outpatient (CLI) | payer MEDICARE, MEDICAID ==
[~2021-09-28] MED LIST changes: +DOXY-350 PO; +INCR1INH INH; +MUCI600T31 PO; +SUCR1TAB56 PO; +TRAD5TAB PO; +VASC1CAP2 PO
== END ==
LOC: M PLAIMG 14:40
PROVIDERS: ATTEND Family Medicine
DX: K86.9 Disease of pancreas, unspecified (principal); N28.1 Cyst of kidney, acquired

== ENCOUNTER → 2021-10-25 | Outpatient (REF) | payer MEDICARE, MEDICAID ==
[2021-10-25 13:19] LABS: HEMATOCRIT 38.7 % (42.0-52.0); HEMOGLOBIN 12.4 g/dl (13.5-17.5); MEAN CORPUSCULAR HEMOGLOBIN 28.9 pg (27.0-33.0); MEAN CORPUSCULAR VOLUME 90.2 fl (80.0-96.0); PLATELET COUNT, AUTOMATED 153 10^3/uL (150-450); RED BLOOD COUNT 4.29 10^6/uL (4.30-6.10); WHITE BLOOD COUNT 6.4 10^3/uL (4.0-10.0)
[2021-10-25 14:41] LABS: ALBUMIN 3.7 GM/DL (3.2-5.2); BILIRUBIN,TOTAL 0.5 MG/DL (0.2-1.0); CALCIUM LEVEL 9.9 MG/DL (8.8-10.2); CHOLESTEROL RISK RATIO 4.5 (<5); CREATININE FOR GFR 2.12 MG/DL (0.70-1.30); FOLATE 18.5 NG/ML; FREE T4 0.92 NG/DL (0.76-1.46); GLOMERULAR FILTRATION RATE 33.5 (>49); POTASSIUM SERUM 4.4 MEQ/L (3.5-5.1); THYROID STIMULATING HORMONE 0.597 uIU/ML (0.358-3.740); TOTAL 25(OH) VITAMIN D 23.2 NG/ML (30.0-100.0); TOTAL PROTEIN 6.7 GM/DL (6.4-8.2)
[2021-10-25 18:42] LABS: HEMOGLOBIN A1c 6.5 %
== END ==
LOC: M SFHCADAM 11:00
PROVIDERS: ATTEND Family Medicine
DX: K86.9 Disease of pancreas, unspecified (principal); E11.22 Type 2 diabetes mellitus with diabetic chronic kidney disease; E78.2 Mixed hyperlipidemia; I12.9 Hypertensive chronic kidney disease with stage 1 through stage 4 chronic kidney disease, or unspecified chronic kidney disease; N18.4 Chronic kidney disease, stage 4 (severe); E78.1 Pure hyperglyceridemia

== ENCOUNTER 2021-11-23 13:05 | Inpatient (IN) | payer MEDICARE, MEDICAID ==
[~2021-11-23] VITALS: Ht 167.6 cm; Wt 84.0 kg
[2021-11-23 13:57] LABS: ABG BASE EXCESS 1.9 (-2.0-2.0); ABG HCO3 30.6 MEQ/L (22.0-26.0); ABG O2 SATURATION 93.4 % (95.0-99.0); ABG PARTIAL PRESSURE O2 71.9 mmHg (75.0-100.0); ABG STANDARD HCO3 26.1 MEQ/L (22.0-26.0); ABG TOTAL CO2 32.8 MEQ/L (23.0-31.0); ABG pH (ARTERIAL) 7.261 UNITS (7.350-7.450)
[2021-11-23 14:00] LABS: ABG PARTIAL PRESSURE CO2 69.7 mmHg (35.0-45.0)
[2021-11-23] MEDS ORDERED: ACETAMINOPHEN 325 MG SUPP PR ONE (14:45)
[2021-11-23] MEDS ORDERED: ACETAMINOPHEN 650 MG SUPP PR ONE (14:45)
[2021-11-23] MEDS ORDERED: NS 1,000 ML IV ONE (14:50)
[2021-11-23 15:13] LABS: BASO % 0.5 % (0.0-1.0); EOS % 0.5 % (0.0-3.0); HEMATOCRIT 38.1 % (42.0-52.0); HEMOGLOBIN 11.9 g/dl (13.5-17.5); LYMPH # 1.2 10^3/uL (1.5-5.0); MEAN CORPUSCULAR HEMOGLOBIN 28.5 pg (27.0-33.0); MEAN CORPUSCULAR HGB CONC 31.2 g/dl (32.0-36.5); MEAN CORPUSCULAR VOLUME 91.4 fl (80.0-96.0); MONO % 13.1 % (2.0-8.0); NEUTROPHILS # 5.2 10^3/uL (1.5-8.5); NEUTROPHILS % 68.4 % (36.0-66.0); PLATELET COUNT, AUTOMATED 191 10^3/uL (150-450); RED BLOOD COUNT 4.17 10^6/uL (4.30-6.10); WHITE BLOOD COUNT 7.6 10^3/uL (4.0-10.0)
[2021-11-23 15:56] LABS: ALBUMIN 3.3 GM/DL (3.2-5.2); BILIRUBIN,DIRECT 0.1 MG/DL (0.0-0.2); BILIRUBIN,TOTAL 0.6 MG/DL (0.2-1.0); CALCIUM LEVEL 10.5 MG/DL (8.8-10.2); CREATININE FOR GFR 2.94 MG/DL (0.70-1.30); LITHIUM LEVEL 0.95 MEQ/L (0.60-1.20); POTASSIUM SERUM 5.6 MEQ/L (3.5-5.1); THYROID STIMULATING HORMONE 0.218 uIU/ML (0.358-3.740)
[2021-11-23] MEDS ORDERED: FUROSEMIDE 40MG/4ML VIAL (J1940) IV ONE (16:15)
[2021-11-23 16:50] LABS: ABG BASE EXCESS 0.5 (-2.0-2.0); ABG HCO3 29.2 MEQ/L (22.0-26.0); ABG O2 SATURATION 95.7 % (95.0-99.0); ABG PARTIAL PRESSURE O2 94.7 mmHg (75.0-100.0); ABG STANDARD HCO3 24.9 MEQ/L (22.0-26.0); ABG TOTAL CO2 31.3 MEQ/L (23.0-31.0)
[2021-11-23 16:52] LABS: ABG PARTIAL PRESSURE CO2 69.6 mmHg (35.0-45.0)
[2021-11-23] MEDS ORDERED: ATOR40TA75 PO (17:39)
[2021-11-23] MEDS ORDERED: HOME MED LIST COMPLETE! XX SCH (17:40)
[2021-11-23] MEDS: HumaLOG INSULIN (NovoLOG) PER UNIT SC SCH (18:00)
[2021-11-23] MEDS ORDERED: IPRATROPIUM 0.5MG/ALBUTEROL 2.5MG INH SOL UD 3ML (DUONEB) NEB PRN (18:25)
[2021-11-23] MEDS ORDERED: GLUCOSE 4GM CHEW TABLET PO PRN (18:40)
[2021-11-23] MEDS ORDERED: DEXTROSE 50% 50 ML SYRINGE IV PRN (18:40)
[2021-11-23] MEDS ORDERED: GLUCAGON INJ 1MG VIAL SC PRN (18:40)
[2021-11-23] MEDS: IPRATROPIUM 0.5MG/ALBUTEROL 2.5MG INH SOL UD 3ML (DUONEB) NEB SCH (19:15)
[2021-11-23] MEDS ORDERED: PILL CUTTER 1 EACH XX PRN (19:20)
[2021-11-23] MEDS: methylPREDNISolone 125MG 2ML VIAL IV SCH (20:00)
[2021-11-23 20:58] LABS: ABG BASE EXCESS 1.4 (-2.0-2.0); ABG HCO3 30.2 MEQ/L (22.0-26.0); ABG O2 SATURATION 97.8 % (95.0-99.0); ABG PARTIAL PRESSURE O2 121.6 mmHg (75.0-100.0); ABG STANDARD HCO3 25.8 MEQ/L (22.0-26.0); ABG TOTAL CO2 32.4 MEQ/L (23.0-31.0)
[2021-11-23 21:00] LABS: ABG PARTIAL PRESSURE CO2 70.7 mmHg (35.0-45.0); ABG pH (ARTERIAL) 7.249 UNITS (7.350-7.450)
[2021-11-23] MEDS: SUCRALFATE 1 GM TAB PO SCH (21:00)
[2021-11-23] MEDS: OLANZapine 10 MG TAB PO SCH (21:00)
[2021-11-23] MEDS: hydrOXYzine 25 MG TAB PO SCH (21:00)
[2021-11-23] MEDS: ATORVASTATIN 20 MG TAB PO SCH (21:00)
[2021-11-23] MEDS: lamoTRIgine 100MG TAB PO SCH (21:00)
[2021-11-23] MEDS: OMEPRAZOLE 20MG CAP PO SCH (21:00)
[2021-11-23] MEDS: AZELASTINE 137MCG NASAL SPY 30 ML (ASTELIN) SCH (21:00)
[2021-11-23] MEDS: BENZTROPINE 1 MG TAB PO SCH (21:00)
[2021-11-23] MEDS: FINASTERIDE 5MG TAB PO SCH (21:00)
[2021-11-23] MEDS: MULTIVITAMINS/MINERALS THERAP 1 TAB PO SCH (21:00)
[2021-11-23] MEDS: APIXABAN 2.5 MG TAB (ELIQUIS) PO SCH (21:00)
[2021-11-23] MEDS: LITHIUM CARBONATE 150 MG CAP PO SCH (21:00)
[2021-11-23] MEDS: CARVedilol 6.25 MG TAB PO SCH (21:00)
[2021-11-23] MEDS ORDERED: HALOPERIDOL 5MG/ML VIAL (J1630 PER 1) As Ordered ONE (21:31)
[2021-11-23] MEDS ORDERED: HALOPERIDOL 5MG/ML VIAL (J1630 PER 1) IM STA (21:34)
[2021-11-24] VITALS (9 sets, daily range): BP systolic 99–144; BP diastolic 62–87
[2021-11-24] MEDS ORDERED: OLANZapine INTRAMUSCULAR 10MG VIAL IM ONE ×2 (01:00→19:40)
[2021-11-24] MEDS: IPRATROPIUM 0.5MG/ALBUTEROL 2.5MG INH SOL UD 3ML (DUONEB) NEB SCH ×4 (02:00→19:39)
[2021-11-24] MEDS: HumaLOG INSULIN (NovoLOG) PER UNIT SC SCH ×4 (03:11→18:00)
[2021-11-24 06:09] LABS: ABG BASE EXCESS 2.6 (-2.0-2.0); ABG HCO3 32.5 MEQ/L (22.0-26.0); ABG O2 SATURATION 93.8 % (95.0-99.0); ABG PARTIAL PRESSURE O2 76.4 mmHg (75.0-100.0); ABG STANDARD HCO3 26.7 MEQ/L (22.0-26.0)
[2021-11-24 06:10] LABS: ABG PARTIAL PRESSURE CO2 81.2 mmHg (35.0-45.0)
[2021-11-24 07:29] LABS: HEMOGLOBIN 11.3 g/dl (13.5-17.5); MEAN CORPUSCULAR HEMOGLOBIN 29.2 pg (27.0-33.0); MEAN CORPUSCULAR HGB CONC 31.4 g/dl (32.0-36.5); PLATELET COUNT, AUTOMATED 186 10^3/uL (150-450); RED BLOOD COUNT 3.87 10^6/uL (4.30-6.10); WHITE BLOOD COUNT 8.2 10^3/uL (4.0-10.0)
[2021-11-24] MEDS: SUCRALFATE 1 GM TAB PO SCH ×4 (07:30→20:50)
[2021-11-24] MEDS: BENZTROPINE 1 MG TAB PO SCH ×2 (07:50→20:50)
[2021-11-24] MEDS: OLANZapine 5 MG TAB PO SCH ×3 (07:50→14:00)
[2021-11-24] MEDS: hydrOXYzine 25 MG TAB PO SCH ×3 (07:50→20:50)
[2021-11-24] MEDS: APIXABAN 2.5 MG TAB (ELIQUIS) PO SCH ×2 (07:51→20:51)
[2021-11-24] MEDS: CARVedilol 6.25 MG TAB PO SCH ×2 (07:51→20:50)
[2021-11-24] MEDS: LITHIUM CARBONATE 150 MG CAP PO SCH ×2 (07:52→20:51)
[2021-11-24] MEDS: lamoTRIgine 100MG TAB PO SCH ×2 (07:52→20:51)
[2021-11-24] MEDS: AZELASTINE 137MCG NASAL SPY 30 ML (ASTELIN) SCH ×2 (07:53→20:55)
[2021-11-24 08:00] LABS: CALCIUM LEVEL 9.7 MG/DL (8.8-10.2); CREATININE FOR GFR 2.58 MG/DL (0.70-1.30); GLOMERULAR FILTRATION RATE 26.7 (>49); POTASSIUM SERUM 4.9 MEQ/L (3.5-5.1)
[2021-11-24] MEDS: methylPREDNISolone 125MG 2ML VIAL IV SCH ×2 (08:00→19:51)
[2021-11-24] MEDS: FUROSEMIDE 100MG/10ML VIAL (J1940) IV SCH ×2 (08:30→17:00)
[2021-11-24 14:02] LABS: ABG BASE EXCESS 4.7 (-2.0-2.0); ABG HCO3 36.9 MEQ/L (22.0-26.0); ABG PARTIAL PRESSURE O2 128.6 mmHg (75.0-100.0); ABG STANDARD HCO3 28.7 MEQ/L (22.0-26.0); ABG TOTAL CO2 40.3 MEQ/L (23.0-31.0)
[2021-11-24 14:13] LABS: ABG PARTIAL PRESSURE CO2 108.5 mmHg (35.0-45.0)
[2021-11-24 16:34] LABS: ABG BASE EXCESS 5.2 (-2.0-2.0); ABG HCO3 34.3 MEQ/L (22.0-26.0); ABG O2 SATURATION 92.6 % (95.0-99.0); ABG PARTIAL PRESSURE CO2 75.2 mmHg (35.0-45.0); ABG STANDARD HCO3 29.1 MEQ/L (22.0-26.0); ABG TOTAL CO2 36.6 MEQ/L (23.0-31.0); ABG pH (ARTERIAL) 7.277 UNITS (7.350-7.450)
[2021-11-24] MEDS: OMEPRAZOLE 20MG CAP PO SCH (20:51)
[2021-11-24] MEDS: ATORVASTATIN 20 MG TAB PO SCH (20:51)
[2021-11-24] MEDS: FINASTERIDE 5MG TAB PO SCH (20:52)
[2021-11-24] MEDS: OLANZapine 10 MG TAB PO SCH (20:54)
[2021-11-24] MEDS: MULTIVITAMINS/MINERALS THERAP 1 TAB PO SCH (20:54)
[2021-11-24] MEDS ORDERED: diphenhydrAMINE 50MG/ML VIAL (J1200) IV ONE (20:55)
[2021-11-25] VITALS (8 sets, daily range): BP systolic 107–150; BP diastolic 67–82
[2021-11-25] MEDS: HumaLOG INSULIN (NovoLOG) PER UNIT SC SCH ×4 (00:25→17:31)
[2021-11-25] MEDS: IPRATROPIUM 0.5MG/ALBUTEROL 2.5MG INH SOL UD 3ML (DUONEB) NEB SCH ×4 (00:39→20:03)
[2021-11-25] MEDS ORDERED: OLANZapine INTRAMUSCULAR 10MG VIAL IM ONE (03:00)
[2021-11-25 05:32] LABS: HEMATOCRIT 34.2 % (42.0-52.0); HEMOGLOBIN 10.8 g/dl (13.5-17.5); MEAN CORPUSCULAR HEMOGLOBIN 29.2 pg (27.0-33.0); MEAN CORPUSCULAR HGB CONC 31.6 g/dl (32.0-36.5); MEAN CORPUSCULAR VOLUME 92.4 fl (80.0-96.0); PLATELET COUNT, AUTOMATED 187 10^3/uL (150-450); WHITE BLOOD COUNT 7.6 10^3/uL (4.0-10.0)
[2021-11-25 05:49] LABS: CALCIUM LEVEL 10.2 MG/DL (8.8-10.2); CREATININE FOR GFR 3.14 MG/DL (0.70-1.30); GLOMERULAR FILTRATION RATE 21.3 (>49)
[2021-11-25 06:28] LABS: ABG BASE EXCESS 5.8 (-2.0-2.0); ABG HCO3 33.8 MEQ/L (22.0-26.0); ABG O2 SATURATION 91.6 % (95.0-99.0); ABG PARTIAL PRESSURE O2 65.4 mmHg (75.0-100.0); ABG STANDARD HCO3 29.6 MEQ/L (22.0-26.0); ABG TOTAL CO2 35.9 MEQ/L (23.0-31.0); ABG pH (ARTERIAL) 7.312 UNITS (7.350-7.450)
[2021-11-25 06:29] LABS: ABG PARTIAL PRESSURE CO2 68.3 mmHg (35.0-45.0)
[2021-11-25] MEDS: SUCRALFATE 1 GM TAB PO SCH ×4 (07:30→20:35)
[2021-11-25] MEDS: OLANZapine 5 MG TAB PO SCH ×4 (08:00→20:33)
[2021-11-25] MEDS: methylPREDNISolone 125MG 2ML VIAL IV SCH ×2 (08:28→20:34)
[2021-11-25] MEDS: APIXABAN 2.5 MG TAB (ELIQUIS) PO SCH ×2 (09:00→20:35)
[2021-11-25] MEDS: LITHIUM CARBONATE 150 MG CAP PO SCH ×2 (09:00→20:44)
[2021-11-25] MEDS: BENZTROPINE 1 MG TAB PO SCH ×2 (09:00→20:34)
[2021-11-25] MEDS: CARVedilol 6.25 MG TAB PO SCH ×2 (09:00→20:35)
[2021-11-25] MEDS: lamoTRIgine 100MG TAB PO SCH ×2 (09:00→20:34)
[2021-11-25] MEDS: hydrOXYzine 25 MG TAB PO SCH ×3 (09:00→20:33)
[2021-11-25] MEDS: FUROSEMIDE 100MG/10ML VIAL (J1940) IV SCH (09:00)
[2021-11-25] MEDS: AZELASTINE 137MCG NASAL SPY 30 ML (ASTELIN) SCH ×2 (09:37→20:44)
[2021-11-25 11:34] LABS: ABG O2 LITER FLOW 8 L; ABG pH (ARTERIAL) 7.322 UNITS (7.350-7.450)
[2021-11-25 11:35] LABS: ABG BASE EXCESS 7.4 (-2.0-2.0); ABG HCO3 35.5 MEQ/L (22.0-26.0); ABG O2 SATURATION 93.3 % (95.0-99.0); ABG PARTIAL PRESSURE O2 72.4 mmHg (75.0-100.0); ABG STANDARD HCO3 31.1 MEQ/L (22.0-26.0); ABG TOTAL CO2 37.6 MEQ/L (23.0-31.0)
[2021-11-25 11:39] LABS: ABG PARTIAL PRESSURE CO2 70.1 mmHg (35.0-45.0)
[2021-11-25] MEDS: OLANZapine 10 MG TAB PO SCH (20:33)
[2021-11-25] MEDS: OMEPRAZOLE 20MG CAP PO SCH (20:34)
[2021-11-25] MEDS: MULTIVITAMINS/MINERALS THERAP 1 TAB PO SCH (20:34)
[2021-11-25] MEDS: ATORVASTATIN 20 MG TAB PO SCH (20:35)
[2021-11-25] MEDS: FINASTERIDE 5MG TAB PO SCH (20:36)
[2021-11-26] VITALS (8 sets, daily range): BP systolic 94–105; BP diastolic 53–76
[2021-11-26] MEDS: IPRATROPIUM 0.5MG/ALBUTEROL 2.5MG INH SOL UD 3ML (DUONEB) NEB SCH ×4 (01:04→19:56)
[2021-11-26] MEDS: HumaLOG INSULIN (NovoLOG) PER UNIT SC SCH ×5 (06:05→20:40)
[2021-11-26 06:31] LABS: ABG BASE EXCESS 4.8 (-2.0-2.0); ABG HCO3 31.3 MEQ/L (22.0-26.0); ABG O2 SATURATION 69.2 % (95.0-99.0); ABG PARTIAL PRESSURE CO2 56.5 mmHg (35.0-45.0); ABG STANDARD HCO3 28.2 MEQ/L (22.0-26.0); ABG pH (ARTERIAL) 7.361 UNITS (7.350-7.450)
[2021-11-26 06:36] LABS: ABG PARTIAL PRESSURE O2 35.1 mmHg (75.0-100.0)
[2021-11-26] MEDS: SUCRALFATE 1 GM TAB PO SCH ×4 (07:30→20:13)
[2021-11-26] MEDS: AZELASTINE 137MCG NASAL SPY 30 ML (ASTELIN) SCH ×2 (08:58→20:20)
[2021-11-26] MEDS: lamoTRIgine 100MG TAB PO SCH ×2 (08:59→20:13)
[2021-11-26] MEDS: APIXABAN 2.5 MG TAB (ELIQUIS) PO SCH ×2 (08:59→20:16)
[2021-11-26] MEDS: BENZTROPINE 1 MG TAB PO SCH ×2 (08:59→20:13)
[2021-11-26] MEDS: methylPREDNISolone 125MG 2ML VIAL IV SCH (09:00)
[2021-11-26] MEDS: CARVedilol 6.25 MG TAB PO SCH ×2 (09:00→20:15)
[2021-11-26 10:47] LABS: HEMATOCRIT 31.5 % (42.0-52.0); HEMOGLOBIN 10.1 g/dl (13.5-17.5); MEAN CORPUSCULAR HEMOGLOBIN 28.9 pg (27.0-33.0); MEAN CORPUSCULAR HGB CONC 32.1 g/dl (32.0-36.5); MEAN CORPUSCULAR VOLUME 90.3 fl (80.0-96.0); PLATELET COUNT, AUTOMATED 216 10^3/uL (150-450); RED BLOOD COUNT 3.49 10^6/uL (4.30-6.10); WHITE BLOOD COUNT 10.6 10^3/uL (4.0-10.0)
[2021-11-26 11:19] LABS: CREATININE FOR GFR 2.72 MG/DL (0.70-1.30); GLOMERULAR FILTRATION RATE 25.2 (>49)
[2021-11-26] MEDS: LITHIUM CARBONATE 150 MG CAP PO SCH ×2 (11:33→20:16)
[2021-11-26] MEDS: OLANZapine 5 MG TAB PO SCH ×3 (12:24→20:14)
[2021-11-26] MEDS ORDERED: methylPREDNISolone 125MG 2ML VIAL IV SCH (20:00)
[2021-11-26] MEDS: OMEPRAZOLE 20MG CAP PO SCH (20:13)
[2021-11-26] MEDS: ATORVASTATIN 20 MG TAB PO SCH (20:14)
[2021-11-26] MEDS: FINASTERIDE 5MG TAB PO SCH (20:16)
[2021-11-26] MEDS: MULTIVITAMINS/MINERALS THERAP 1 TAB PO SCH (20:16)
[2021-11-27] VITALS (7 sets, daily range): BP systolic 90–143; BP diastolic 53–76
[2021-11-27] MEDS: IPRATROPIUM 0.5MG/ALBUTEROL 2.5MG INH SOL UD 3ML (DUONEB) NEB SCH ×4 (01:28→20:37)
[2021-11-27 05:06] LABS: HEMATOCRIT 29.6 % (42.0-52.0); HEMOGLOBIN 9.6 g/dl (13.5-17.5); MEAN CORPUSCULAR HGB CONC 32.4 g/dl (32.0-36.5); MEAN CORPUSCULAR VOLUME 89.4 fl (80.0-96.0); PLATELET COUNT, AUTOMATED 198 10^3/uL (150-450); RED BLOOD COUNT 3.31 10^6/uL (4.30-6.10)
[2021-11-27 05:31] LABS: CALCIUM LEVEL 9.8 MG/DL (8.8-10.2); CREATININE FOR GFR 2.76 MG/DL (0.70-1.30); GLOMERULAR FILTRATION RATE 24.7 (>49); POTASSIUM SERUM 4.5 MEQ/L (3.5-5.1)
[2021-11-27] MEDS: LITHIUM CARBONATE 150 MG CAP PO SCH ×2 (09:21→21:00)
[2021-11-27] MEDS: CARVedilol 6.25 MG TAB PO SCH ×2 (09:21→21:00)
[2021-11-27] MEDS: BENZTROPINE 1 MG TAB PO SCH ×2 (09:22→21:04)
[2021-11-27] MEDS: OLANZapine 5 MG TAB PO SCH ×4 (09:22→21:05)
[2021-11-27] MEDS: SUCRALFATE 1 GM TAB PO SCH ×4 (09:22→20:55)
[2021-11-27] MEDS: lamoTRIgine 100MG TAB PO SCH ×2 (09:22→21:04)
[2021-11-27] MEDS: APIXABAN 2.5 MG TAB (ELIQUIS) PO SCH ×2 (09:22→20:55)
[2021-11-27] MEDS: methylPREDNISolone 125MG 2ML VIAL IV SCH (09:23)
[2021-11-27] MEDS: HumaLOG INSULIN (NovoLOG) PER UNIT SC SCH ×4 (09:23→21:41)
[2021-11-27] MEDS: LEVEMIR (INSULIN DETEMIR) 1 UNITS/0.01ML SC SCH ×2 (09:23→21:41)
[2021-11-27] MEDS: AZELASTINE 137MCG NASAL SPY 30 ML (ASTELIN) SCH ×2 (09:24→21:41)
[2021-11-27] MEDS: ATORVASTATIN 20 MG TAB PO SCH (21:00)
[2021-11-27] MEDS: OMEPRAZOLE 20MG CAP PO SCH (21:02)
[2021-11-27] MEDS: MULTIVITAMINS/MINERALS THERAP 1 TAB PO SCH (21:05)
[2021-11-27] MEDS: FINASTERIDE 5MG TAB PO SCH (21:05)
[2021-11-27] MEDS ORDERED: guaiFENesin 200 MG TAB PO PRN (23:00)
[2021-11-27] MEDS: ACETAMINOPHEN TAB 650MG DOSE (2X325MG) PO PRN (23:21)
[2021-11-28] VITALS (33 sets, daily range): BP systolic 79–122; BP diastolic 49–66
[2021-11-28] MEDS ORDERED: diphenhydrAMINE 50MG/ML VIAL (J1200) IM STA (00:37)
[2021-11-28] MEDS ORDERED: LORazepam 2 MG/ML VIAL IV STA (01:20)
[2021-11-28] MEDS: IPRATROPIUM 0.5MG/ALBUTEROL 2.5MG INH SOL UD 3ML (DUONEB) NEB SCH ×6 (01:25→23:52)
[2021-11-28] MEDS ORDERED: LEVALBUTEROL 1.25 MG/0.5 ML CONCENTRATE NEB NEB ONE (02:45)
[2021-11-28 05:22] LABS: ABG BASE EXCESS 2.4 (-2.0-2.0); ABG O2 SATURATION 98.8 % (95.0-99.0); ABG STANDARD HCO3 26.6 MEQ/L (22.0-26.0); ABG TOTAL CO2 34.4 MEQ/L (23.0-31.0)
[2021-11-28 05:23] LABS: ABG PARTIAL PRESSURE CO2 80.1 mmHg (35.0-45.0); ABG pH (ARTERIAL) 7.219 UNITS (7.350-7.450)
[2021-11-28 06:00] LABS: BASO # 0.1 10^3/uL (0.0-0.2); BASO % 0.2 % (0.0-1.0); EOS % 0.1 % (0.0-3.0); HEMATOCRIT 35.7 % (42.0-52.0); HEMOGLOBIN 11.3 g/dl (13.5-17.5); LYMPH # 1.5 10^3/uL (1.5-5.0); LYMPH % 6.7 % (24.0-44.0); MEAN CORPUSCULAR HEMOGLOBIN 29.2 pg (27.0-33.0); MEAN CORPUSCULAR HGB CONC 31.7 g/dl (32.0-36.5); MEAN CORPUSCULAR VOLUME 92.2 fl (80.0-96.0); MONO # 1.3 10^3/uL (0.0-0.8); NEUTROPHILS # 19.1 10^3/uL (1.5-8.5); NEUTROPHILS % 85.8 % (36.0-66.0); PLATELET COUNT, AUTOMATED 224 10^3/uL (150-450); RED BLOOD COUNT 3.87 10^6/uL (4.30-6.10); WHITE BLOOD COUNT 22.3 10^3/uL (4.0-10.0)
[2021-11-28 06:32] LABS: ALBUMIN 2.7 GM/DL (3.2-5.2); BILIRUBIN,TOTAL 0.4 MG/DL (0.2-1.0); CALCIUM LEVEL 10.5 MG/DL (8.8-10.2); CREATININE FOR GFR 2.76 MG/DL (0.70-1.30); GLOMERULAR FILTRATION RATE 24.7 (>49); POTASSIUM SERUM 4.8 MEQ/L (3.5-5.1); TOTAL PROTEIN 6.7 GM/DL (6.4-8.2)
[2021-11-28] MEDS ORDERED: SODIUM CHLORIDE 0.9% 1000ML IV SCH (06:35)
[2021-11-28] MEDS ORDERED: VANCOMYCIN HCL 1,000 MG, VIAL MATE ADAPTER 1 EACH in NS 250 ML IV SCH (07:05)
[2021-11-28] MEDS: SUCRALFATE 1 GM TAB PO SCH ×4 (07:30→20:27)
[2021-11-28] MEDS: OLANZapine 5 MG TAB PO SCH ×3 (08:00→14:00)
[2021-11-28] MEDS ORDERED: VANCOMYCIN HCL 750 MG, VIAL MATE ADAPTER 1 EACH in NS 250 ML IV ONE ×2 (08:00→09:00)
[2021-11-28] MEDS: HumaLOG INSULIN (NovoLOG) PER UNIT SC SCH ×4 (08:03→23:11)
[2021-11-28] MEDS: PIPERACILLIN/TAZOBACTAM SOD 3.375 GM in D5W MINI-BAG PLUS 50 ML IV SCH ×3 (08:04→18:34)
[2021-11-28] MEDS: LITHIUM CARBONATE 150 MG CAP PO SCH ×2 (09:00→20:28)
[2021-11-28] MEDS: APIXABAN 2.5 MG TAB (ELIQUIS) PO SCH (09:00)
[2021-11-28] MEDS: LEVEMIR (INSULIN DETEMIR) 1 UNITS/0.01ML SC SCH ×2 (09:00→21:08)
[2021-11-28] MEDS: lamoTRIgine 100MG TAB PO SCH ×2 (09:00→20:28)
[2021-11-28] MEDS: CARVedilol 6.25 MG TAB PO SCH (09:00)
[2021-11-28] MEDS: BENZTROPINE 1 MG TAB PO SCH ×2 (09:00→20:27)
[2021-11-28 09:07] LABS: ABG BASE EXCESS 2.5 (-2.0-2.0); ABG HCO3 30.8 MEQ/L (22.0-26.0); ABG O2 SATURATION 89.3 % (95.0-99.0); ABG PARTIAL PRESSURE O2 56.4 mmHg (75.0-100.0); ABG STANDARD HCO3 26.5 MEQ/L (22.0-26.0); ABG TOTAL CO2 32.8 MEQ/L (23.0-31.0); ABG pH (ARTERIAL) 7.276 UNITS (7.350-7.450)
[2021-11-28 09:10] LABS: ABG PARTIAL PRESSURE CO2 67.6 mmHg (35.0-45.0)
[2021-11-28] MEDS: methylPREDNISolone 125MG 2ML VIAL IV SCH (10:53)
[2021-11-28] MEDS: AZELASTINE 137MCG NASAL SPY 30 ML (ASTELIN) SCH ×2 (10:53→20:28)
[2021-11-28] MEDS ORDERED: NS 1,000 ML IV ONE ×2 (12:25→15:15)
[2021-11-28] MEDS: D5W/0.45% SODIUM CHLORIDE 1,000 ML IV SCH (12:30)
[2021-11-28 14:13] LABS: ABG BASE EXCESS 5.5 (-2.0-2.0); ABG O2 SATURATION 98.9 % (95.0-99.0); ABG PARTIAL PRESSURE O2 186.8 mmHg (75.0-100.0); ABG STANDARD HCO3 29.5 MEQ/L (22.0-26.0); ABG TOTAL CO2 36.3 MEQ/L (23.0-31.0)
[2021-11-28 14:17] LABS: ABG PARTIAL PRESSURE CO2 74.1 mmHg (35.0-45.0)
[2021-11-28] MEDS ORDERED: HALOPERIDOL 5MG/ML VIAL (J1630 PER 1) IM ONE (20:20)
[2021-11-28] MEDS: APIXABAN 5 MG TAB (ELIQUIS) PO SCH (20:27)
[2021-11-28] MEDS: FINASTERIDE 5MG TAB PO SCH (20:28)
[2021-11-28] MEDS: MULTIVITAMINS/MINERALS THERAP 1 TAB PO SCH (20:28)
[2021-11-28] MEDS: ATORVASTATIN 20 MG TAB PO SCH (20:28)
[2021-11-28] MEDS: OMEPRAZOLE 20MG CAP PO SCH (20:28)
[2021-11-28] MEDS ORDERED: diphenhydrAMINE 50MG/ML VIAL (J1200) IV ONE (21:05)
[2021-11-29] VITALS (22 sets, daily range): BP systolic 97–132; BP diastolic 55–82
[2021-11-29] MEDS: PIPERACILLIN/TAZOBACTAM SOD 3.375 GM in D5W MINI-BAG PLUS 50 ML IV SCH ×2 (01:04→06:06)
[2021-11-29] MEDS ORDERED: diphenhydrAMINE 50MG/ML VIAL (J1200) IV ONE (03:00)
[2021-11-29] MEDS: D5W/0.45% SODIUM CHLORIDE 1,000 ML IV SCH (03:03)
[2021-11-29] MEDS: IPRATROPIUM 0.5MG/ALBUTEROL 2.5MG INH SOL UD 3ML (DUONEB) NEB SCH ×5 (04:00→19:15)
[2021-11-29] MEDS: HumaLOG INSULIN (NovoLOG) PER UNIT SC SCH ×4 (05:03→19:49)
[2021-11-29] MEDS ORDERED: VANCOMYCIN HCL 750 MG, VIAL MATE ADAPTER 1 EACH in NS 250 ML IV SCH (08:00)
[2021-11-29] MEDS: APIXABAN 5 MG TAB (ELIQUIS) PO SCH ×2 (08:34→19:41)
[2021-11-29] MEDS: LITHIUM CARBONATE 150 MG CAP PO SCH ×2 (08:34→19:40)
[2021-11-29] MEDS: lamoTRIgine 100MG TAB PO SCH ×2 (08:35→19:39)
[2021-11-29] MEDS: SUCRALFATE 1 GM TAB PO SCH ×4 (08:35→19:41)
[2021-11-29] MEDS: OLANZapine 5 MG TAB PO SCH ×3 (08:35→13:25)
[2021-11-29] MEDS: BENZTROPINE 1 MG TAB PO SCH ×2 (08:35→19:40)
[2021-11-29] MEDS: LEVEMIR (INSULIN DETEMIR) 1 UNITS/0.01ML SC SCH ×2 (08:36→19:38)
[2021-11-29] MEDS: AZELASTINE 137MCG NASAL SPY 30 ML (ASTELIN) SCH ×2 (08:37→19:41)
[2021-11-29] MEDS: methylPREDNISolone 125MG 2ML VIAL IV SCH (08:38)
[2021-11-29] MEDS ORDERED: VANCOMYCIN HCL 500 MG in D5W MINI-BAG PLUS 100 ML IV SCH (09:00)
[2021-11-29] MEDS ORDERED: DOXYCYCLINE HYCLATE 100 MG in D5W MINI-BAG PLUS 100 ML IV SCH (09:00)
[2021-11-29 10:00] LABS: HEMATOCRIT 35.2 % (42.0-52.0); HEMOGLOBIN 10.8 g/dl (13.5-17.5); MEAN CORPUSCULAR HEMOGLOBIN 28.9 pg (27.0-33.0); MEAN CORPUSCULAR HGB CONC 30.7 g/dl (32.0-36.5); MEAN CORPUSCULAR VOLUME 94.1 fl (80.0-96.0); PLATELET COUNT, AUTOMATED 198 10^3/uL (150-450); RED BLOOD COUNT 3.74 10^6/uL (4.30-6.10); WHITE BLOOD COUNT 21.8 10^3/uL (4.0-10.0)
[2021-11-29 10:45] LABS: CALCIUM LEVEL 10.5 MG/DL (8.8-10.2); CREATININE FOR GFR 2.43 MG/DL (0.70-1.30); GLOMERULAR FILTRATION RATE 28.7 (>49); MAGNESIUM LEVEL 2.7 MG/DL (1.8-2.4); PHOSPHORUS LEVEL 1.9 MG/DL (2.5-4.9)
[2021-11-29] MEDS: LevoFLOXacin 750 MG TABLET PO SCH (13:25)
[2021-11-29] MEDS ORDERED: SODIUM PHOSPHATE INJ 20 MMOL in D5W 250 ML IV ONE (14:00)
[2021-11-29 17:40] LABS: VENOUS BASE EXCESS 2.2 (-2.0-2.0); VENOUS HCO3 30.4 MEQ/L (23.0-27.0); VENOUS O2 SATURATION 85.3 % (60.0-80.0); VENOUS PARTIAL PRESSURE CO2 68.6 mmHg (38.0-50.0); VENOUS PARTIAL PRESSURE O2 51.3 mmHg (30.0-50.0); VENOUS PH 7.265 UNITS (7.330-7.430); VENOUS STANDARD HCO3 26.2 MEQ/L; VENOUS TOTAL CO2 32.5 MEQ/L (24.0-28.0)
[2021-11-29] MEDS: LINEZOLID 600MG TABLET (ZYVOX) PO SCH (19:39)
[2021-11-29] MEDS: OMEPRAZOLE 20MG CAP PO SCH (19:39)
[2021-11-29] MEDS: DOCUSATE SODIUM 100MG CAPSULE PO SCH (19:39)
[2021-11-29] MEDS: MULTIVITAMINS/MINERALS THERAP 1 TAB PO SCH (19:40)
[2021-11-29] MEDS: ATORVASTATIN 20 MG TAB PO SCH (19:41)
[2021-11-29] MEDS: FINASTERIDE 5MG TAB PO SCH (19:41)
[2021-11-30] VITALS (14 sets, daily range): BP systolic 100–127; BP diastolic 55–82
[2021-11-30] MEDS: IPRATROPIUM 0.5MG/ALBUTEROL 2.5MG INH SOL UD 3ML (DUONEB) NEB SCH ×6 (00:26→19:50)
[2021-11-30 04:33] LABS: VENOUS BASE EXCESS 6.3 (-2.0-2.0); VENOUS HCO3 32.2 MEQ/L (23.0-27.0); VENOUS O2 SATURATION 98.7 % (60.0-80.0); VENOUS PARTIAL PRESSURE CO2 53.8 mmHg (38.0-50.0); VENOUS PH 7.395 UNITS (7.330-7.430); VENOUS STANDARD HCO3 30.2 MEQ/L; VENOUS TOTAL CO2 33.9 MEQ/L (24.0-28.0)
[2021-11-30 04:36] LABS: HEMATOCRIT 29.1 % (42.0-52.0); HEMOGLOBIN 9.1 g/dl (13.5-17.5); MEAN CORPUSCULAR HEMOGLOBIN 29.1 pg (27.0-33.0); MEAN CORPUSCULAR HGB CONC 31.3 g/dl (32.0-36.5); PLATELET COUNT, AUTOMATED 180 10^3/uL (150-450); RED BLOOD COUNT 3.13 10^6/uL (4.30-6.10); WHITE BLOOD COUNT 19.3 10^3/uL (4.0-10.0)
[2021-11-30 05:23] LABS: CALCIUM LEVEL 10.2 MG/DL (8.8-10.2); CREATININE FOR GFR 1.82 MG/DL (0.70-1.30); POTASSIUM SERUM 3.9 MEQ/L (3.5-5.1)
[2021-11-30] MEDS: ACETAMINOPHEN TAB 650MG DOSE (2X325MG) PO PRN (05:45)
[2021-11-30] MEDS: HumaLOG INSULIN (NovoLOG) PER UNIT SC SCH ×4 (07:30→20:50)
[2021-11-30] MEDS: LEVEMIR (INSULIN DETEMIR) 1 UNITS/0.01ML SC SCH ×2 (08:22→20:51)
[2021-11-30] MEDS: methylPREDNISolone 125MG 2ML VIAL IV SCH (08:23)
[2021-11-30] MEDS: DOCUSATE SODIUM 100MG CAPSULE PO SCH ×2 (08:24→20:48)
[2021-11-30] MEDS: LINEZOLID 600MG TABLET (ZYVOX) PO SCH ×2 (08:24→20:49)
[2021-11-30] MEDS: lamoTRIgine 100MG TAB PO SCH ×2 (08:24→20:49)
[2021-11-30] MEDS: BENZTROPINE 1 MG TAB PO SCH ×2 (08:24→20:48)
[2021-11-30] MEDS: LITHIUM CARBONATE 150 MG CAP PO SCH ×2 (08:24→20:48)
[2021-11-30] MEDS: APIXABAN 5 MG TAB (ELIQUIS) PO SCH ×2 (08:25→20:49)
[2021-11-30] MEDS: SUCRALFATE 1 GM TAB PO SCH ×4 (08:26→20:49)
[2021-11-30] MEDS: AZELASTINE 137MCG NASAL SPY 30 ML (ASTELIN) SCH ×2 (08:27→23:42)
[2021-11-30] MEDS ORDERED: FUROSEMIDE 40MG/4ML VIAL (J1940) IV ONE (10:40)
[2021-11-30] MEDS: OLANZapine INTRAMUSCULAR 10MG VIAL IM PRN (20:14)
[2021-11-30] MEDS: OMEPRAZOLE 20MG CAP PO SCH (20:47)
[2021-11-30] MEDS: MULTIVITAMINS/MINERALS THERAP 1 TAB PO SCH (20:48)
[2021-11-30] MEDS: FINASTERIDE 5MG TAB PO SCH (20:48)
[2021-11-30] MEDS: ATORVASTATIN 20 MG TAB PO SCH (20:50)
[2021-12-01] MEDS: IPRATROPIUM 0.5MG/ALBUTEROL 2.5MG INH SOL UD 3ML (DUONEB) NEB SCH ×6 (00:47→19:20)
[2021-12-01] MEDS: OLANZapine INTRAMUSCULAR 10MG VIAL IM PRN (04:47)
[2021-12-01] MEDS: LevoFLOXacin 750 MG TABLET PO SCH (07:12)
[2021-12-01 07:13] LABS: BASO % 0.1 % (0.0-1.0); EOS # 0.3 10^3/uL (0.0-0.5); EOS % 1.8 % (0.0-3.0); HEMATOCRIT 30.7 % (42.0-52.0); HEMOGLOBIN 9.7 g/dl (13.5-17.5); LYMPH # 1.2 10^3/uL (1.5-5.0); LYMPH % 8.2 % (24.0-44.0); MEAN CORPUSCULAR HEMOGLOBIN 28.9 pg (27.0-33.0); MEAN CORPUSCULAR HGB CONC 31.6 g/dl (32.0-36.5); MEAN CORPUSCULAR VOLUME 91.4 fl (80.0-96.0); MONO # 0.9 10^3/uL (0.0-0.8); MONO % 6.3 % (2.0-8.0); NEUTROPHILS # 12.2 10^3/uL (1.5-8.5); NEUTROPHILS % 82.3 % (36.0-66.0); PLATELET COUNT, AUTOMATED 232 10^3/uL (150-450); RED BLOOD COUNT 3.36 10^6/uL (4.30-6.10); WHITE BLOOD COUNT 14.8 10^3/uL (4.0-10.0)
[2021-12-01 07:46] LABS: ALBUMIN 2.4 GM/DL (3.2-5.2); BILIRUBIN,TOTAL 0.6 MG/DL (0.2-1.0); CREATININE FOR GFR 2.15 MG/DL (0.70-1.30); MAGNESIUM LEVEL 2.1 MG/DL (1.8-2.4); PHOSPHORUS LEVEL 3.2 MG/DL (2.5-4.9); POTASSIUM SERUM 3.5 MEQ/L (3.5-5.1); TOTAL PROTEIN 5.4 GM/DL (6.4-8.2)
[2021-12-01] MEDS: LEVEMIR (INSULIN DETEMIR) 1 UNITS/0.01ML SC SCH ×2 (09:35→21:17)
[2021-12-01] MEDS: HumaLOG INSULIN (NovoLOG) PER UNIT SC SCH ×4 (09:35→21:27)
[2021-12-01] MEDS: APIXABAN 5 MG TAB (ELIQUIS) PO SCH ×2 (09:37→21:17)
[2021-12-01] MEDS: predniSONE 10 MG TAB PO SCH (09:37)
[2021-12-01] MEDS: BENZTROPINE 1 MG TAB PO SCH ×2 (09:37→21:22)
[2021-12-01] MEDS: lamoTRIgine 100MG TAB PO SCH ×2 (09:37→21:16)
[2021-12-01] MEDS: DOCUSATE SODIUM 100MG CAPSULE PO SCH ×2 (09:37→21:17)
[2021-12-01] MEDS: LITHIUM CARBONATE 150 MG CAP PO SCH ×2 (09:37→21:23)
[2021-12-01] MEDS: LINEZOLID 600MG TABLET (ZYVOX) PO SCH ×2 (09:37→21:22)
[2021-12-01] MEDS: SUCRALFATE 1 GM TAB PO SCH ×4 (09:37→21:16)
[2021-12-01] MEDS: AZELASTINE 137MCG NASAL SPY 30 ML (ASTELIN) SCH ×2 (09:38→21:17)
[2021-12-01 14:00] VITALS: BP 99/82
[2021-12-01 16:10] LABS: BODY FLUID CULTURE Not indicated. (.); LEGIONELLA ANTIGEN URINE Negative (Negative); ORGANISM ID Not indicated. (.); SPECIMEN SOURCE Urine (.); URINE STREP PNEUMONIAE ANTIGEN Negative (Negative)
[2021-12-01 18:00] VITALS: BP 118/68
[2021-12-01] MEDS ORDERED: LEVALBUTEROL 1.25 MG/0.5 ML CONCENTRATE NEB INH PRN (19:55)
[2021-12-01] MEDS: IPRATROPIUM 0.02% SOLN 0.5MG 2.5ML NEB INH SCH ×2 (20:00→23:14)
[2021-12-01] MEDS: MULTIVITAMINS/MINERALS THERAP 1 TAB PO SCH (21:16)
[2021-12-01] MEDS: OMEPRAZOLE 20MG CAP PO SCH (21:16)
[2021-12-01] MEDS: FINASTERIDE 5MG TAB PO SCH (21:17)
[2021-12-01] MEDS: ATORVASTATIN 20 MG TAB PO SCH (21:17)
[2021-12-01 21:55] VITALS: BP 106/82
[2021-12-02] MEDS: IPRATROPIUM 0.02% SOLN 0.5MG 2.5ML NEB INH SCH ×5 (03:03→17:50)
[2021-12-02 06:50] LABS: BASO % 0.2 % (0.0-1.0); CREATININE FOR GFR 2.01 MG/DL (0.70-1.30); EOS # 0.1 10^3/uL (0.0-0.5); EOS % 1.3 % (0.0-3.0); GLOMERULAR FILTRATION RATE 35.7 (>49); HEMATOCRIT 32.4 % (42.0-52.0); HEMOGLOBIN 10.1 g/dl (13.5-17.5); LYMPH # 0.9 10^3/uL (1.5-5.0); LYMPH % 9.6 % (24.0-44.0); MAGNESIUM LEVEL 2.4 MG/DL (1.8-2.4); MEAN CORPUSCULAR HEMOGLOBIN 28.1 pg (27.0-33.0); MEAN CORPUSCULAR HGB CONC 31.2 g/dl (32.0-36.5); MONO # 0.8 10^3/uL (0.0-0.8); MONO % 8.7 % (2.0-8.0); NEUTROPHILS # 7.7 10^3/uL (1.5-8.5); PHOSPHORUS LEVEL 2.5 MG/DL (2.5-4.9); PLATELET COUNT, AUTOMATED 244 10^3/uL (150-450); POTASSIUM SERUM 3.5 MEQ/L (3.5-5.1); WHITE BLOOD COUNT 9.7 10^3/uL (4.0-10.0)
[2021-12-02] MEDS: SUCRALFATE 1 GM TAB PO SCH ×4 (08:55→20:34)
[2021-12-02] MEDS: LINEZOLID 600MG TABLET (ZYVOX) PO SCH ×2 (08:56→20:34)
[2021-12-02] MEDS: predniSONE 10 MG TAB PO SCH (08:56)
[2021-12-02] MEDS: BENZTROPINE 1 MG TAB PO SCH ×2 (08:56→20:34)
[2021-12-02] MEDS: LITHIUM CARBONATE 150 MG CAP PO SCH ×2 (08:56→20:34)
[2021-12-02] MEDS: DOCUSATE SODIUM 100MG CAPSULE PO SCH ×2 (08:56→20:34)
[2021-12-02] MEDS: APIXABAN 5 MG TAB (ELIQUIS) PO SCH ×2 (08:56→20:34)
[2021-12-02] MEDS: lamoTRIgine 100MG TAB PO SCH ×2 (08:56→20:34)
[2021-12-02] MEDS: LEVEMIR (INSULIN DETEMIR) 1 UNITS/0.01ML SC SCH ×2 (08:56→20:33)
[2021-12-02] MEDS: HumaLOG INSULIN (NovoLOG) PER UNIT SC SCH ×4 (08:57→20:44)
[2021-12-02] MEDS: AZELASTINE 137MCG NASAL SPY 30 ML (ASTELIN) SCH ×2 (08:57→20:35)
[2021-12-02 14:00] VITALS: BP 110/79
[2021-12-02] MEDS ORDERED: guaiFENesin 200 MG TAB PO PRN (19:55)
[2021-12-02 20:30] VITALS: BP 136/74
[2021-12-02] MEDS: MULTIVITAMINS/MINERALS THERAP 1 TAB PO SCH (20:33)
[2021-12-02] MEDS: ATORVASTATIN 20 MG TAB PO SCH (20:33)
[2021-12-02] MEDS: OMEPRAZOLE 20MG CAP PO SCH (20:34)
[2021-12-02] MEDS: FINASTERIDE 5MG TAB PO SCH (23:05)
[2021-12-03] MEDS: IPRATROPIUM 0.02% SOLN 0.5MG 2.5ML NEB INH SCH ×6 (03:16→19:27)
[2021-12-03] MEDS: LevoFLOXacin 750 MG TABLET PO SCH (05:07)
[2021-12-03 05:24] VITALS: BP 120/82
[2021-12-03 06:51] LABS: BASO % 0.2 % (0.0-1.0); EOS # 0.2 10^3/uL (0.0-0.5); EOS % 1.9 % (0.0-3.0); HEMOGLOBIN 10.3 g/dl (13.5-17.5); LYMPH # 1.3 10^3/uL (1.5-5.0); LYMPH % 11.3 % (24.0-44.0); MEAN CORPUSCULAR HEMOGLOBIN 28.4 pg (27.0-33.0); MEAN CORPUSCULAR HGB CONC 31.2 g/dl (32.0-36.5); MEAN CORPUSCULAR VOLUME 90.9 fl (80.0-96.0); MONO % 8.1 % (2.0-8.0); NEUTROPHILS # 9.2 10^3/uL (1.5-8.5); NEUTROPHILS % 77.2 % (36.0-66.0); PLATELET COUNT, AUTOMATED 246 10^3/uL (150-450); RED BLOOD COUNT 3.63 10^6/uL (4.30-6.10); WHITE BLOOD COUNT 11.9 10^3/uL (4.0-10.0)
[2021-12-03 07:26] LABS: CREATININE FOR GFR 1.89 MG/DL (0.70-1.30); GLOMERULAR FILTRATION RATE 38.3 (>49); MAGNESIUM LEVEL 2.4 MG/DL (1.8-2.4); PHOSPHORUS LEVEL 3.3 MG/DL (2.5-4.9); POTASSIUM SERUM 4.1 MEQ/L (3.5-5.1)
[2021-12-03] MEDS: DOCUSATE SODIUM 100MG CAPSULE PO SCH ×3 (08:45→20:37)
[2021-12-03] MEDS: FLUTICASONE PROP 0.05% NASAL SPRAY 16 GM (FLONASE) NARES SCH (08:45)
[2021-12-03] MEDS: LINEZOLID 600MG TABLET (ZYVOX) PO SCH ×2 (08:45→20:37)
[2021-12-03] MEDS: LITHIUM CARBONATE 150 MG CAP PO SCH ×2 (08:45→20:37)
[2021-12-03] MEDS: APIXABAN 5 MG TAB (ELIQUIS) PO SCH ×2 (08:45→20:37)
[2021-12-03] MEDS: BENZTROPINE 1 MG TAB PO SCH ×2 (08:45→20:37)
[2021-12-03] MEDS: lamoTRIgine 100MG TAB PO SCH ×2 (08:46→20:37)
[2021-12-03] MEDS: predniSONE 10 MG TAB PO SCH (08:46)
[2021-12-03] MEDS: SUCRALFATE 1 GM TAB PO SCH ×4 (08:46→20:42)
[2021-12-03] MEDS: AZELASTINE 137MCG NASAL SPY 30 ML (ASTELIN) SCH ×2 (08:47→20:38)
[2021-12-03] MEDS: HumaLOG INSULIN (NovoLOG) PER UNIT SC SCH ×4 (08:47→20:38)
[2021-12-03] MEDS: LEVEMIR (INSULIN DETEMIR) 1 UNITS/0.01ML SC SCH ×2 (08:47→20:36)
[2021-12-03 14:00] VITALS: BP 133/88
[2021-12-03 18:00] VITALS: BP 136/87
[2021-12-03] MEDS: MULTIVITAMINS/MINERALS THERAP 1 TAB PO SCH (20:36)
[2021-12-03] MEDS: FINASTERIDE 5MG TAB PO SCH (20:36)
[2021-12-03] MEDS: ATORVASTATIN 20 MG TAB PO SCH (20:37)
[2021-12-03] MEDS: OMEPRAZOLE 20MG CAP PO SCH (20:37)
[2021-12-03] MEDS: ACETAMINOPHEN TAB 650MG DOSE (2X325MG) PO PRN (20:42)
[2021-12-04] MEDS: IPRATROPIUM 0.02% SOLN 0.5MG 2.5ML NEB INH SCH ×6 (00:41→19:54)
[2021-12-04 04:25] VITALS: BP 134/87
[2021-12-04 05:31] LABS: BASO % 0.2 % (0.0-1.0); EOS # 0.2 10^3/uL (0.0-0.5); EOS % 1.6 % (0.0-3.0); HEMATOCRIT 32.8 % (42.0-52.0); HEMOGLOBIN 10.3 g/dl (13.5-17.5); LYMPH # 1.3 10^3/uL (1.5-5.0); LYMPH % 10.2 % (24.0-44.0); MEAN CORPUSCULAR HEMOGLOBIN 28.5 pg (27.0-33.0); MEAN CORPUSCULAR HGB CONC 31.4 g/dl (32.0-36.5); MEAN CORPUSCULAR VOLUME 90.6 fl (80.0-96.0); MONO # 0.8 10^3/uL (0.0-0.8); MONO % 6.4 % (2.0-8.0); NEUTROPHILS # 10.4 10^3/uL (1.5-8.5); NEUTROPHILS % 80.3 % (36.0-66.0); PLATELET COUNT, AUTOMATED 253 10^3/uL (150-450); RED BLOOD COUNT 3.62 10^6/uL (4.30-6.10); WHITE BLOOD COUNT 12.9 10^3/uL (4.0-10.0)
[2021-12-04 05:51] LABS: CALCIUM LEVEL 10.1 MG/DL (8.8-10.2); CREATININE FOR GFR 1.67 MG/DL (0.70-1.30); GLOMERULAR FILTRATION RATE 44.2 (>49); MAGNESIUM LEVEL 2.4 MG/DL (1.8-2.4); POTASSIUM SERUM 3.8 MEQ/L (3.5-5.1)
[2021-12-04] MEDS ORDERED: BISACODYL 10 MG SUPP PR ONE (07:15)
[2021-12-04] MEDS: AZELASTINE 137MCG NASAL SPY 30 ML (ASTELIN) SCH ×2 (08:21→21:25)
[2021-12-04] MEDS: FLUTICASONE PROP 0.05% NASAL SPRAY 16 GM (FLONASE) NARES SCH (08:21)
[2021-12-04] MEDS: LEVEMIR (INSULIN DETEMIR) 1 UNITS/0.01ML SC SCH ×2 (08:22→21:19)
[2021-12-04] MEDS: HumaLOG INSULIN (NovoLOG) PER UNIT SC SCH ×4 (08:22→21:00)
[2021-12-04] MEDS: predniSONE 10 MG TAB PO SCH (08:22)
[2021-12-04] MEDS: APIXABAN 5 MG TAB (ELIQUIS) PO SCH ×2 (08:22→21:22)
[2021-12-04] MEDS: SUCRALFATE 1 GM TAB PO SCH ×4 (08:23→21:22)
[2021-12-04] MEDS: lamoTRIgine 100MG TAB PO SCH ×2 (08:23→21:22)
[2021-12-04] MEDS: BENZTROPINE 1 MG TAB PO SCH ×2 (08:23→21:19)
[2021-12-04] MEDS: DOCUSATE SODIUM 100MG CAPSULE PO SCH ×2 (08:23→21:22)
[2021-12-04] MEDS: LINEZOLID 600MG TABLET (ZYVOX) PO SCH ×2 (08:23→21:20)
[2021-12-04] MEDS: LITHIUM CARBONATE 150 MG CAP PO SCH ×2 (10:30→21:22)
[2021-12-04] MEDS: LEVALBUTEROL 1.25 MG/0.5 ML CONCENTRATE NEB INH SCH ×3 (11:37→19:54)
[2021-12-04 12:23] LABS: ABG BASE EXCESS 2.3 (-2.0-2.0); ABG HCO3 28.4 MEQ/L (22.0-26.0); ABG O2 SATURATION 90.7 % (95.0-99.0); ABG PARTIAL PRESSURE CO2 51.8 mmHg (35.0-45.0); ABG PARTIAL PRESSURE O2 59.9 mmHg (75.0-100.0); ABG STANDARD HCO3 26.5 MEQ/L (22.0-26.0); ABG pH (ARTERIAL) 7.357 UNITS (7.350-7.450)
[2021-12-04] MEDS: FUROSEMIDE 40MG/4ML VIAL (J1940) IV SCH ×2 (12:29→17:00)
[2021-12-04 14:00] VITALS: BP 120/82
[2021-12-04 19:08] VITALS: BP 111/76
[2021-12-04] MEDS: MULTIVITAMINS/MINERALS THERAP 1 TAB PO SCH (21:19)
[2021-12-04] MEDS: ATORVASTATIN 20 MG TAB PO SCH (21:20)
[2021-12-04] MEDS: OMEPRAZOLE 20MG CAP PO SCH (21:21)
[2021-12-04] MEDS: FINASTERIDE 5MG TAB PO SCH (21:24)
[2021-12-04] MEDS: CARVedilol 6.25 MG TAB PO SCH (21:42)
[2021-12-05] VITALS (8 sets, daily range): BP systolic 101–131; BP diastolic 49–75; O2SAT 90
[2021-12-05] MEDS: LEVALBUTEROL 1.25 MG/0.5 ML CONCENTRATE NEB INH SCH ×6 (00:26→19:41)
[2021-12-05] MEDS: IPRATROPIUM 0.02% SOLN 0.5MG 2.5ML NEB INH SCH ×6 (00:26→19:41)
[2021-12-05] MEDS ORDERED: ONDANSETRON 4MG/2ML VIAL IV PRN (04:05)
[2021-12-05 04:42] LABS: BASO % 0.2 % (0.0-1.0); EOS # 0.2 10^3/uL (0.0-0.5); EOS % 1.7 % (0.0-3.0); HEMATOCRIT 33.5 % (42.0-52.0); HEMOGLOBIN 10.7 g/dl (13.5-17.5); LYMPH # 1.3 10^3/uL (1.5-5.0); LYMPH % 12.7 % (24.0-44.0); MEAN CORPUSCULAR HEMOGLOBIN 29.1 pg (27.0-33.0); MEAN CORPUSCULAR HGB CONC 31.9 g/dl (32.0-36.5); MONO # 0.8 10^3/uL (0.0-0.8); NEUTROPHILS # 7.7 10^3/uL (1.5-8.5); NEUTROPHILS % 75.8 % (36.0-66.0); PLATELET COUNT, AUTOMATED 260 10^3/uL (150-450); RED BLOOD COUNT 3.68 10^6/uL (4.30-6.10); WHITE BLOOD COUNT 10.2 10^3/uL (4.0-10.0)
[2021-12-05 04:52] LABS: INR 1.15; PROTHROMBIN TIME 15.1 SECONDS (12.7-14.5)
[2021-12-05 04:54] LABS: PARTIAL THROMBOPLASTIN TIME 53.5 SECONDS (25.9-37.0)
[2021-12-05 05:07] LABS: ALBUMIN 2.3 GM/DL (3.2-5.2); BILIRUBIN,TOTAL 0.4 MG/DL (0.2-1.0); C REACTIVE PROTEIN QUANTITATIV 4.87 MG/DL (0.00-0.30); CALCIUM LEVEL 10.1 MG/DL (8.8-10.2); CREATININE FOR GFR 1.97 MG/DL (0.70-1.30); GLOMERULAR FILTRATION RATE 36.5 (>49); MAGNESIUM LEVEL 2.6 MG/DL (1.8-2.4); PHOSPHORUS LEVEL 4.7 MG/DL (2.5-4.9); POTASSIUM SERUM 3.9 MEQ/L (3.5-5.1); TOTAL PROTEIN 6.1 GM/DL (6.4-8.2)
[2021-12-05] MEDS: LevoFLOXacin 750 MG TABLET PO SCH (05:32)
[2021-12-05 05:34] LABS: ERYTHROCYTE SEDIMENTATION RATE 67 mm/hr (0-20)
[2021-12-05] MEDS: CARVedilol 6.25 MG TAB PO SCH ×2 (09:00→20:12)
[2021-12-05] MEDS: DOCUSATE SODIUM 100MG CAPSULE PO SCH ×2 (09:00→20:12)
[2021-12-05] MEDS: LEVEMIR (INSULIN DETEMIR) 1 UNITS/0.01ML SC SCH ×2 (09:11→21:44)
[2021-12-05] MEDS: lamoTRIgine 100MG TAB PO SCH ×2 (09:12→20:09)
[2021-12-05] MEDS: HumaLOG INSULIN (NovoLOG) PER UNIT SC SCH ×4 (09:12→21:44)
[2021-12-05] MEDS: FUROSEMIDE 40MG/4ML VIAL (J1940) IV SCH (09:12)
[2021-12-05] MEDS: predniSONE 10 MG TAB PO SCH (09:13)
[2021-12-05] MEDS: APIXABAN 5 MG TAB (ELIQUIS) PO SCH ×2 (09:13→20:09)
[2021-12-05] MEDS: BENZTROPINE 1 MG TAB PO SCH ×2 (09:13→20:12)
[2021-12-05] MEDS: LINEZOLID 600MG TABLET (ZYVOX) PO SCH ×2 (09:13→20:09)
[2021-12-05] MEDS: SUCRALFATE 1 GM TAB PO SCH ×4 (09:13→20:12)
[2021-12-05] MEDS: LITHIUM CARBONATE 150 MG CAP PO SCH ×2 (09:13→20:12)
[2021-12-05] MEDS: AZELASTINE 137MCG NASAL SPY 30 ML (ASTELIN) SCH ×2 (09:22→20:12)
[2021-12-05] MEDS: FLUTICASONE PROP 0.05% NASAL SPRAY 16 GM (FLONASE) NARES SCH (09:23)
[2021-12-05] MEDS: PIPERACILLIN/TAZOBACTAM SOD 2.25 GM in D5W MINI-BAG PLUS 50 ML IV SCH ×3 (09:45→20:09)
[2021-12-05] MEDS ORDERED: NS 1,000 ML IV ONE ×3 (12:10→22:05)
[2021-12-05 15:27] LABS: ABG BASE EXCESS 2.6 (-2.0-2.0); ABG HCO3 29.5 MEQ/L (22.0-26.0); ABG O2 SATURATION 92.8 % (95.0-99.0); ABG PARTIAL PRESSURE O2 69.4 mmHg (75.0-100.0); ABG STANDARD HCO3 26.7 MEQ/L (22.0-26.0); ABG TOTAL CO2 31.3 MEQ/L (23.0-31.0); ABG pH (ARTERIAL) 7.332 UNITS (7.350-7.450)
[2021-12-05] MEDS: ATORVASTATIN 20 MG TAB PO SCH (20:09)
[2021-12-05] MEDS: OMEPRAZOLE 20MG CAP PO SCH (20:09)
[2021-12-05] MEDS: FINASTERIDE 5MG TAB PO SCH (20:12)
[2021-12-05] MEDS: MULTIVITAMINS/MINERALS THERAP 1 TAB PO SCH (20:12)
[2021-12-05] MEDS ORDERED: BENZONATATE 100MG CAPSULE PO PRN (20:25)
[2021-12-06 00:06] LABS: ABG HCO3 29.7 MEQ/L (22.0-26.0); ABG O2 SATURATION 97.5 % (95.0-99.0); ABG PARTIAL PRESSURE CO2 50.1 mmHg (35.0-45.0); ABG PARTIAL PRESSURE O2 107.8 mmHg (75.0-100.0); ABG STANDARD HCO3 28.1 MEQ/L (22.0-26.0); ABG TOTAL CO2 31.3 MEQ/L (23.0-31.0); ABG pH (ARTERIAL) 7.391 UNITS (7.350-7.450)
[2021-12-06] MEDS: LEVALBUTEROL 1.25 MG/0.5 ML CONCENTRATE NEB INH SCH ×4 (00:21→13:06)
[2021-12-06] MEDS: IPRATROPIUM 0.02% SOLN 0.5MG 2.5ML NEB INH SCH ×4 (00:21→13:06)
[2021-12-06] MEDS: PIPERACILLIN/TAZOBACTAM SOD 2.25 GM in D5W MINI-BAG PLUS 50 ML IV SCH ×2 (02:21→09:11)
[2021-12-06 02:43] VITALS: BP 128/80
[2021-12-06] MEDS ORDERED: NS 1,000 ML IV SCH (03:00)
[2021-12-06] MEDS ORDERED: SODIUM CHLORIDE 0.9% 1000ML IV ONE (03:00)
[2021-12-06 04:43] LABS: VENOUS BASE EXCESS 6.6 (-2.0-2.0); VENOUS HCO3 32.7 MEQ/L (23.0-27.0); VENOUS O2 SATURATION 98.6 % (60.0-80.0); VENOUS PARTIAL PRESSURE CO2 54.9 mmHg (38.0-50.0); VENOUS PARTIAL PRESSURE O2 150.3 mmHg (30.0-50.0); VENOUS PH 7.393 UNITS (7.330-7.430); VENOUS STANDARD HCO3 30.5 MEQ/L; VENOUS TOTAL CO2 34.4 MEQ/L (24.0-28.0)
[2021-12-06 04:51] LABS: HEMATOCRIT 29.8 % (42.0-52.0); HEMOGLOBIN 9.2 g/dl (13.5-17.5); MEAN CORPUSCULAR HEMOGLOBIN 28.3 pg (27.0-33.0); MEAN CORPUSCULAR HGB CONC 30.9 g/dl (32.0-36.5); MEAN CORPUSCULAR VOLUME 91.7 fl (80.0-96.0); PLATELET COUNT, AUTOMATED 227 10^3/uL (150-450); RED BLOOD COUNT 3.25 10^6/uL (4.30-6.10); WHITE BLOOD COUNT 7.9 10^3/uL (4.0-10.0)
[2021-12-06 05:19] LABS: C REACTIVE PROTEIN QUANTITATIV 2.38 MG/DL (0.00-0.30); CALCIUM LEVEL 8.9 MG/DL (8.8-10.2); CREATININE FOR GFR 1.79 MG/DL (0.70-1.30); GLOMERULAR FILTRATION RATE 40.8 (>49); MAGNESIUM LEVEL 2.2 MG/DL (1.8-2.4); PHOSPHORUS LEVEL 3.1 MG/DL (2.5-4.9); POTASSIUM SERUM 4.1 MEQ/L (3.5-5.1)
[2021-12-06 06:00] VITALS: BP 118/75
[2021-12-06 08:00] VITALS: BP 110/75
[2021-12-06] MEDS: SUCRALFATE 1 GM TAB PO SCH ×2 (08:21→12:03)
[2021-12-06] MEDS: HumaLOG INSULIN (NovoLOG) PER UNIT SC SCH ×2 (08:24→12:00)
[2021-12-06 09:00] VITALS: BP 110/71
[2021-12-06] MEDS: CARVedilol 6.25 MG TAB PO SCH (09:00)
[2021-12-06] MEDS: DOCUSATE SODIUM 100MG CAPSULE PO SCH (09:12)
[2021-12-06] MEDS: LEVEMIR (INSULIN DETEMIR) 1 UNITS/0.01ML SC SCH (09:12)
[2021-12-06] MEDS: lamoTRIgine 100MG TAB PO SCH (09:13)
[2021-12-06] MEDS: LINEZOLID 600MG TABLET (ZYVOX) PO SCH (09:13)
[2021-12-06] MEDS: predniSONE 10 MG TAB PO SCH (09:13)
[2021-12-06] MEDS: ACETAMINOPHEN TAB 650MG DOSE (2X325MG) PO PRN (09:14)
[2021-12-06] MEDS: APIXABAN 5 MG TAB (ELIQUIS) PO SCH (09:14)
[2021-12-06] MEDS: BENZTROPINE 1 MG TAB PO SCH (09:14)
[2021-12-06] MEDS: AZELASTINE 137MCG NASAL SPY 30 ML (ASTELIN) SCH (09:15)
[2021-12-06] MEDS: FLUTICASONE PROP 0.05% NASAL SPRAY 16 GM (FLONASE) NARES SCH (09:15)
[2021-12-06] MEDS: LITHIUM CARBONATE 150 MG CAP PO SCH (09:52)
[2021-12-06] MEDS ORDERED: PRED10TA2 PO (10:35)
[2021-12-06] MEDS ORDERED: ELIQ5TAB PO (10:35)
[2021-12-06] MEDS ORDERED: VARIBAR NECTAR 40% w/v 240ML SUSP BTL As Ordered ONE (10:42)
[2021-12-06] MEDS ORDERED: E-Z-PAQUE 96% w/w SUSP 176GM BTL As Ordered ONE (10:42)
[2021-12-06] MEDS ORDERED: VARIBAR PUDDING 40% w/v 230ML TUBE As Ordered ONE (10:42)
[2021-12-06] MEDS ORDERED: BARIUM SULFATE 700 MG TABLET (E-Z-DISK) As Ordered ONE (10:42)
== END 2021-12-06 13:35 | DRG 871 ==
LOC: M ED 13:05 → EDBD 13:05 → M ED INP 18:21 → ENRESERV 11-24 09:27 → M ICU 11-24 10:41 → M 4MAIN 11-30 10:49 → M ICU 11-30 10:50 → M MSPAV 11-30 14:20
PROVIDERS: ADMIT Family Medicine; ATTEND Internal Medicine
DX: A41.9 Sepsis, unspecified organism (principal); J96.22 Acute and chronic respiratory failure with hypercapnia; J18.9 Pneumonia, unspecified organism; J96.21 Acute and chronic respiratory failure with hypoxia; E87.0 Hyperosmolality and hypernatremia; E87.2 Acidosis; J44.1 Chronic obstructive pulmonary disease with (acute) exacerbation; N18.4 Chronic kidney disease, stage 4 (severe); E66.2 Morbid (severe) obesity with alveolar hypoventilation; N25.81 Secondary hyperparathyroidism of renal origin; B97.21 SARS-associated coronavirus as the cause of diseases classified elsewhere; K86.9 Disease of pancreas, unspecified; E87.70 Fluid overload, unspecified; J06.9 Acute upper respiratory infection, unspecified; F79 Unspecified intellectual disabilities; I12.9 Hypertensive chronic kidney disease with stage 1 through stage 4 chronic kidney disease, or unspecified chronic kidney disease; E11.22 Type 2 diabetes mellitus with diabetic chronic kidney disease; F32.A Depression, unspecified; F25.9 Schizoaffective disorder, unspecified; K11.21 Acute sialoadenitis; E78.5 Hyperlipidemia, unspecified; D63.1 Anemia in chronic kidney disease; K21.9 Gastro-esophageal reflux disease without esophagitis; G47.33 Obstructive sleep apnea (adult) (pediatric); Z79.01 Long term (current) use of anticoagulants; Z86.718 Personal history of other venous thrombosis and embolism; Z79.899 Other long term (current) drug therapy; Z88.6 Allergy status to analgesic agent; R56.9 Unspecified convulsions; I87.2 Venous insufficiency (chronic) (peripheral)

== ENCOUNTER 2021-12-06 12:33 | Inpatient (IN) | payer MEDICARE, MEDICAID ==
[~2021-12-06] VITALS: Ht 167.6 cm; Wt 84.0 kg
[~2021-12-06 12:33] MED LIST changes: +ATOR40TA75 PO; +ELIQ5TAB PO
[2021-12-06 14:00] VITALS: BP 131/75
[2021-12-06] MEDS ORDERED: PIPERACILLIN/TAZOBACTAM SOD 2.25 GM in D5W MINI-BAG PLUS 50 ML IV SCH (14:00)
[2021-12-06] MEDS ORDERED: GLUCAGON INJ 1MG VIAL SC PRN (14:35)
[2021-12-06] MEDS ORDERED: GLUCOSE 4GM CHEW TABLET PO PRN (14:35)
[2021-12-06] MEDS ORDERED: ACETAMINOPHEN TAB 650MG DOSE (2X325MG) PO PRN (14:35)
[2021-12-06] MEDS ORDERED: DEXTROSE 50% 50 ML SYRINGE IV PRN (14:35)
[2021-12-06] MEDS ORDERED: BISACODYL 10 MG SUPP PR PRN (14:35)
[2021-12-06] MEDS ORDERED: HALOPERIDOL 5MG/ML VIAL (J1630 PER 1) IM PRN (15:00)
[2021-12-06] MEDS ORDERED: HOME MED LIST COMPLETE! XX SCH (15:30)
[2021-12-06] MEDS ORDERED: MAALOX 30 ML SUSP *UDC PO ONE (16:00)
[2021-12-06] MEDS ORDERED: CEPACOL LOZENGE PO PRN (16:00)
[2021-12-06] MEDS: guaiFENesin 200 MG TAB PO SCH ×2 (16:00→20:43)
[2021-12-06] MEDS: REMEDY PHYTOPLEX Z-GUARD PASTE 113GM TUBE (FROM STOREROOM PRODUCT) TOP SCH ×2 (16:00→21:00)
[2021-12-06] MEDS ORDERED: MAALOX 30 ML SUSP *UDC PO PRN (16:00)
[2021-12-06] MEDS ORDERED: FLEET ENEMA PR ONE (17:00)
[2021-12-06] MEDS ORDERED: CEPACOL LOZENGE PO ONE (17:00)
[2021-12-06] MEDS: HumaLOG INSULIN (NovoLOG) PER UNIT SC SCH ×2 (17:30→20:44)
[2021-12-06] MEDS: SUCRALFATE 1 GM TAB PO SCH ×2 (17:30→20:43)
[2021-12-06] MEDS: MAGIC MOUTHWASH SUSPENSION BTL SSP SCH (17:30)
[2021-12-06] MEDS: IPRATROPIUM HFA INHALER 12.9 GRAMS (ATROVENT HFA) INH SCH ×2 (17:40→20:23)
[2021-12-06] MEDS: LACTOBACILLUS ACIDOPHILUS CAP (BACID) PO SCH ×2 (17:53→20:43)
[2021-12-06] MEDS: PIPERACILLIN/TAZOBACTAM SOD 2.25 GM in D5W MINI-BAG PLUS 50 ML IV SCH (17:54)
[2021-12-06 20:23] VITALS: BP 136/80
[2021-12-06] MEDS: LEVALBUTEROL HFA 45MCG/ACT 15 GM INHALER INH SCH (20:23)
[2021-12-06] MEDS: CARVedilol 6.25 MG TAB PO SCH (20:41)
[2021-12-06] MEDS: APIXABAN 5 MG TAB (ELIQUIS) PO SCH (20:42)
[2021-12-06] MEDS: SENNA 8.6 MG TAB (SENOKOT) PO SCH (20:42)
[2021-12-06] MEDS: lamoTRIgine 100MG TAB PO SCH (20:42)
[2021-12-06] MEDS: LITHIUM CARBONATE 150 MG CAP PO SCH (20:42)
[2021-12-06] MEDS: ATORVASTATIN 20 MG TAB PO SCH (20:42)
[2021-12-06] MEDS: FINASTERIDE 5MG TAB PO SCH (20:43)
[2021-12-06] MEDS: AZELASTINE 137MCG NASAL SPY 30 ML (ASTELIN) SCH (20:43)
[2021-12-06] MEDS: DOCUSATE SODIUM 100MG CAPSULE PO SCH (20:43)
[2021-12-06] MEDS: OMEPRAZOLE 20MG CAP PO SCH (20:43)
[2021-12-06] MEDS: LINEZOLID 600MG TABLET (ZYVOX) PO SCH (20:43)
[2021-12-06] MEDS: LEVEMIR (INSULIN DETEMIR) 1 UNITS/0.01ML SC SCH (20:44)
[2021-12-06] MEDS: BENZTROPINE 1 MG TAB PO SCH (20:45)
[2021-12-07] MEDS: PIPERACILLIN/TAZOBACTAM SOD 2.25 GM in D5W MINI-BAG PLUS 50 ML IV SCH ×4 (00:24→17:37)
[2021-12-07] MEDS: LEVALBUTEROL HFA 45MCG/ACT 15 GM INHALER INH SCH ×4 (01:50→19:59)
[2021-12-07] MEDS ORDERED: RAMELTEON 8 MG TAB (ROZEREM) PO PRN (03:45)
[2021-12-07] MEDS: hydrOXYzine 25 MG TAB PO PRN (05:25)
[2021-12-07] MEDS: MAGIC MOUTHWASH SUSPENSION BTL SSP SCH ×3 (07:30→17:30)
[2021-12-07] MEDS: IPRATROPIUM HFA INHALER 12.9 GRAMS (ATROVENT HFA) INH SCH ×4 (07:42→19:59)
[2021-12-07] MEDS: SUCRALFATE 1 GM TAB PO SCH ×4 (08:59→21:59)
[2021-12-07] MEDS: CARVedilol 6.25 MG TAB PO SCH ×2 (08:59→22:01)
[2021-12-07] MEDS: guaiFENesin 200 MG TAB PO SCH ×3 (08:59→21:59)
[2021-12-07] MEDS: LITHIUM CARBONATE 150 MG CAP PO SCH ×2 (08:59→22:00)
[2021-12-07] MEDS: AZELASTINE 137MCG NASAL SPY 30 ML (ASTELIN) SCH ×2 (09:00→22:00)
[2021-12-07] MEDS: REMEDY PHYTOPLEX Z-GUARD PASTE 113GM TUBE (FROM STOREROOM PRODUCT) TOP SCH ×3 (09:00→22:00)
[2021-12-07] MEDS: DOCUSATE SODIUM 100MG CAPSULE PO SCH ×2 (09:00→22:01)
[2021-12-07] MEDS: APIXABAN 5 MG TAB (ELIQUIS) PO SCH ×2 (09:00→22:00)
[2021-12-07] MEDS: lamoTRIgine 100MG TAB PO SCH ×2 (09:00→22:00)
[2021-12-07] MEDS: BENZTROPINE 1 MG TAB PO SCH ×2 (09:00→21:59)
[2021-12-07] MEDS: LINEZOLID 600MG TABLET (ZYVOX) PO SCH (09:00)
[2021-12-07] MEDS: predniSONE 20 MG TAB PO SCH (09:00)
[2021-12-07] MEDS: FLUTICASONE PROP 0.05% NASAL SPRAY 16 GM (FLONASE) NARES SCH (09:00)
[2021-12-07] MEDS: LACTOBACILLUS ACIDOPHILUS CAP (BACID) PO SCH ×4 (09:00→21:58)
[2021-12-07] MEDS: LEVEMIR (INSULIN DETEMIR) 1 UNITS/0.01ML SC SCH ×2 (09:01→21:58)
[2021-12-07] MEDS: HumaLOG INSULIN (NovoLOG) PER UNIT SC SCH ×5 (09:02→22:00)
[2021-12-07 14:00] VITALS: BP 116/71
[2021-12-07 16:25] LABS: VENOUS BASE EXCESS 6.6 (-2.0-2.0); VENOUS HCO3 33.4 MEQ/L (23.0-27.0); VENOUS O2 SATURATION 99.2 % (60.0-80.0); VENOUS PARTIAL PRESSURE CO2 60.2 mmHg (38.0-50.0); VENOUS PARTIAL PRESSURE O2 167.2 mmHg (30.0-50.0); VENOUS PH 7.362 UNITS (7.330-7.430); VENOUS STANDARD HCO3 30.5 MEQ/L; VENOUS TOTAL CO2 35.2 MEQ/L (24.0-28.0)
[2021-12-07 16:30] LABS: BASO % 0.2 % (0.0-1.0); EOS % 0.2 % (0.0-3.0); HEMATOCRIT 32.1 % (42.0-52.0); HEMOGLOBIN 9.7 g/dl (13.5-17.5); LYMPH # 0.6 10^3/uL (1.5-5.0); LYMPH % 5.2 % (24.0-44.0); MEAN CORPUSCULAR HEMOGLOBIN 28.7 pg (27.0-33.0); MEAN CORPUSCULAR HGB CONC 30.2 g/dl (32.0-36.5); MONO # 0.2 10^3/uL (0.0-0.8); MONO % 1.3 % (2.0-8.0); NEUTROPHILS # 10.3 10^3/uL (1.5-8.5); NEUTROPHILS % 92.3 % (36.0-66.0); PLATELET COUNT, AUTOMATED 215 10^3/uL (150-450); RED BLOOD COUNT 3.38 10^6/uL (4.30-6.10); WHITE BLOOD COUNT 11.2 10^3/uL (4.0-10.0)
[2021-12-07 17:02] LABS: ALBUMIN 2.4 GM/DL (3.2-5.2); BILIRUBIN,TOTAL 0.4 MG/DL (0.2-1.0); CALCIUM LEVEL 9.3 MG/DL (8.8-10.2); CREATININE FOR GFR 1.64 MG/DL (0.70-1.30); GLOMERULAR FILTRATION RATE 45.1 (>49); POTASSIUM SERUM 5.3 MEQ/L (3.5-5.1); TOTAL PROTEIN 5.6 GM/DL (6.4-8.2)
[2021-12-07 21:51] VITALS: BP 119/63
[2021-12-07] MEDS: OMEPRAZOLE 20MG CAP PO SCH (21:58)
[2021-12-07] MEDS: ATORVASTATIN 20 MG TAB PO SCH (21:58)
[2021-12-07] MEDS: SENNA 8.6 MG TAB (SENOKOT) PO SCH (21:59)
[2021-12-07] MEDS: MULTIVITAMINS/MINERALS THERAP 1 TAB PO SCH (21:59)
[2021-12-07] MEDS: FINASTERIDE 5MG TAB PO SCH (22:01)
[2021-12-08] MEDS: PIPERACILLIN/TAZOBACTAM SOD 2.25 GM in D5W MINI-BAG PLUS 50 ML IV SCH ×5 (00:20→23:39)
[2021-12-08] MEDS: LEVALBUTEROL HFA 45MCG/ACT 15 GM INHALER INH SCH ×4 (01:55→20:19)
[2021-12-08 03:58] VITALS: BP 116/73
[2021-12-08] MEDS: IPRATROPIUM HFA INHALER 12.9 GRAMS (ATROVENT HFA) INH SCH ×4 (07:07→20:19)
[2021-12-08] MEDS: MAGIC MOUTHWASH SUSPENSION BTL SSP SCH ×3 (07:30→17:30)
[2021-12-08] MEDS: HumaLOG INSULIN (NovoLOG) PER UNIT SC SCH ×4 (08:08→21:00)
[2021-12-08] MEDS: guaiFENesin 200 MG TAB PO SCH ×3 (08:09→20:35)
[2021-12-08] MEDS: BENZTROPINE 1 MG TAB PO SCH ×2 (08:09→20:35)
[2021-12-08] MEDS: LACTOBACILLUS ACIDOPHILUS CAP (BACID) PO SCH ×4 (08:09→20:35)
[2021-12-08] MEDS: LEVEMIR (INSULIN DETEMIR) 1 UNITS/0.01ML SC SCH ×2 (08:09→20:36)
[2021-12-08] MEDS: predniSONE 20 MG TAB PO SCH (08:10)
[2021-12-08] MEDS: CARVedilol 6.25 MG TAB PO SCH ×2 (08:10→20:35)
[2021-12-08] MEDS: LITHIUM CARBONATE 150 MG CAP PO SCH ×2 (08:10→20:34)
[2021-12-08] MEDS: lamoTRIgine 100MG TAB PO SCH ×2 (08:10→20:35)
[2021-12-08] MEDS: SUCRALFATE 1 GM TAB PO SCH ×4 (08:10→20:35)
[2021-12-08] MEDS: APIXABAN 5 MG TAB (ELIQUIS) PO SCH ×2 (08:10→20:34)
[2021-12-08] MEDS: DOCUSATE SODIUM 100MG CAPSULE PO SCH ×2 (08:20→21:00)
[2021-12-08 08:23] LABS: BASO % 0.2 % (0.0-1.0); EOS # 0.2 10^3/uL (0.0-0.5); EOS % 1.4 % (0.0-3.0); HEMATOCRIT 33.8 % (42.0-52.0); HEMOGLOBIN 10.2 g/dl (13.5-17.5); LYMPH # 1.5 10^3/uL (1.5-5.0); LYMPH % 14.7 % (24.0-44.0); MEAN CORPUSCULAR HEMOGLOBIN 28.9 pg (27.0-33.0); MEAN CORPUSCULAR HGB CONC 30.2 g/dl (32.0-36.5); MEAN CORPUSCULAR VOLUME 95.8 fl (80.0-96.0); MONO # 0.5 10^3/uL (0.0-0.8); MONO % 4.5 % (2.0-8.0); NEUTROPHILS # 8.2 10^3/uL (1.5-8.5); NEUTROPHILS % 78.3 % (36.0-66.0); PLATELET COUNT, AUTOMATED 241 10^3/uL (150-450); RED BLOOD COUNT 3.53 10^6/uL (4.30-6.10); WHITE BLOOD COUNT 10.5 10^3/uL (4.0-10.0)
[2021-12-08] MEDS: AZELASTINE 137MCG NASAL SPY 30 ML (ASTELIN) SCH ×2 (08:25→20:36)
[2021-12-08] MEDS: REMEDY PHYTOPLEX Z-GUARD PASTE 113GM TUBE (FROM STOREROOM PRODUCT) TOP SCH ×3 (08:26→20:37)
[2021-12-08 08:47] LABS: CALCIUM LEVEL 9.9 MG/DL (8.8-10.2); CREATININE FOR GFR 1.7 MG/DL (0.70-1.30); GLOMERULAR FILTRATION RATE 43.3 (>49); MAGNESIUM LEVEL 2.4 MG/DL (1.8-2.4); PHOSPHORUS LEVEL 3.9 MG/DL (2.5-4.9); POTASSIUM SERUM 4.1 MEQ/L (3.5-5.1)
[2021-12-08] MEDS: FLUTICASONE PROP 0.05% NASAL SPRAY 16 GM (FLONASE) NARES SCH (09:00)
[2021-12-08 14:00] VITALS: BP 103/56
[2021-12-08 20:00] VITALS: BP 127/82
[2021-12-08] MEDS: FINASTERIDE 5MG TAB PO SCH (20:35)
[2021-12-08] MEDS: ATORVASTATIN 20 MG TAB PO SCH (20:35)
[2021-12-08] MEDS: MULTIVITAMINS/MINERALS THERAP 1 TAB PO SCH (20:35)
[2021-12-08] MEDS: OMEPRAZOLE 20MG CAP PO SCH (20:36)
[2021-12-08] MEDS: SENNA 8.6 MG TAB (SENOKOT) PO SCH (21:00)
[2021-12-09] MEDS: hydrOXYzine 25 MG TAB PO PRN (01:55)
[2021-12-09] MEDS ORDERED: FLUTICASONE PROP 0.05% NASAL SPRAY 16 GM (FLONASE) NARES PRN (02:00)
[2021-12-09] MEDS: SODIUM CHLORIDE NASAL 0.65% SPRAY BTL (OCEAN) PRN (02:50)
[2021-12-09] MEDS: LEVALBUTEROL HFA 45MCG/ACT 15 GM INHALER INH SCH ×4 (03:09→20:29)
[2021-12-09] MEDS: PIPERACILLIN/TAZOBACTAM SOD 2.25 GM in D5W MINI-BAG PLUS 50 ML IV SCH ×4 (05:42→23:33)
[2021-12-09 06:00] VITALS: BP 118/68
[2021-12-09] MEDS: MAGIC MOUTHWASH SUSPENSION BTL SSP SCH ×3 (07:30→17:21)
[2021-12-09] MEDS: IPRATROPIUM HFA INHALER 12.9 GRAMS (ATROVENT HFA) INH SCH ×3 (07:39→20:29)
[2021-12-09] MEDS: DOCUSATE SODIUM 100MG CAPSULE PO SCH ×2 (09:00→19:03)
[2021-12-09] MEDS: SUCRALFATE 1 GM TAB PO SCH ×4 (09:01→21:14)
[2021-12-09] MEDS: guaiFENesin 200 MG TAB PO SCH ×3 (09:01→21:15)
[2021-12-09] MEDS: LEVEMIR (INSULIN DETEMIR) 1 UNITS/0.01ML SC SCH ×2 (09:01→21:14)
[2021-12-09] MEDS: HumaLOG INSULIN (NovoLOG) PER UNIT SC SCH ×4 (09:01→21:00)
[2021-12-09] MEDS: LITHIUM CARBONATE 150 MG CAP PO SCH ×2 (09:02→21:14)
[2021-12-09] MEDS: predniSONE 10 MG TAB PO SCH (09:02)
[2021-12-09] MEDS: lamoTRIgine 100MG TAB PO SCH ×2 (09:02→21:14)
[2021-12-09] MEDS: APIXABAN 5 MG TAB (ELIQUIS) PO SCH ×2 (09:02→21:14)
[2021-12-09] MEDS: LACTOBACILLUS ACIDOPHILUS CAP (BACID) PO SCH ×4 (09:02→21:14)
[2021-12-09] MEDS: BENZTROPINE 1 MG TAB PO SCH ×2 (09:03→21:14)
[2021-12-09] MEDS: CARVedilol 6.25 MG TAB PO SCH ×2 (09:03→21:14)
[2021-12-09] MEDS: REMEDY PHYTOPLEX Z-GUARD PASTE 113GM TUBE (FROM STOREROOM PRODUCT) TOP SCH ×3 (09:06→21:16)
[2021-12-09] MEDS: AZELASTINE 137MCG NASAL SPY 30 ML (ASTELIN) SCH ×2 (09:06→21:16)
[2021-12-09 14:37] VITALS: BP 116/62
[2021-12-09] MEDS: SENNA 8.6 MG TAB (SENOKOT) PO SCH (19:03)
[2021-12-09 20:00] VITALS: BP 130/80
[2021-12-09] MEDS: FINASTERIDE 5MG TAB PO SCH (21:14)
[2021-12-09] MEDS: MULTIVITAMINS/MINERALS THERAP 1 TAB PO SCH (21:14)
[2021-12-09] MEDS: OMEPRAZOLE 20MG CAP PO SCH (21:14)
[2021-12-09] MEDS: ATORVASTATIN 20 MG TAB PO SCH (21:15)
[2021-12-10] MEDS: IPRATROPIUM HFA INHALER 12.9 GRAMS (ATROVENT HFA) INH SCH ×4 (02:00→19:35)
[2021-12-10] MEDS: LEVALBUTEROL HFA 45MCG/ACT 15 GM INHALER INH SCH ×4 (02:00→19:35)
[2021-12-10] MEDS: SODIUM CHLORIDE NASAL 0.65% SPRAY BTL (OCEAN) PRN ×2 (03:44→08:36)
[2021-12-10] MEDS: PIPERACILLIN/TAZOBACTAM SOD 2.25 GM in D5W MINI-BAG PLUS 50 ML IV SCH ×2 (05:48→12:23)
[2021-12-10 06:00] VITALS: BP 143/82
[2021-12-10] MEDS: MAGIC MOUTHWASH SUSPENSION BTL SSP SCH ×3 (07:30→16:46)
[2021-12-10] MEDS: DOCUSATE SODIUM 100MG CAPSULE PO SCH ×2 (07:50→21:24)
[2021-12-10] MEDS: SUCRALFATE 1 GM TAB PO SCH ×4 (08:35→21:25)
[2021-12-10] MEDS: guaiFENesin 200 MG TAB PO SCH ×3 (08:35→21:25)
[2021-12-10] MEDS: LEVEMIR (INSULIN DETEMIR) 1 UNITS/0.01ML SC SCH ×2 (08:35→21:27)
[2021-12-10] MEDS: LACTOBACILLUS ACIDOPHILUS CAP (BACID) PO SCH ×4 (08:35→21:25)
[2021-12-10] MEDS: lamoTRIgine 100MG TAB PO SCH ×2 (08:35→21:25)
[2021-12-10] MEDS: HumaLOG INSULIN (NovoLOG) PER UNIT SC SCH ×4 (08:35→21:00)
[2021-12-10] MEDS: CARVedilol 6.25 MG TAB PO SCH ×2 (08:36→21:26)
[2021-12-10] MEDS: APIXABAN 5 MG TAB (ELIQUIS) PO SCH ×2 (08:36→21:25)
[2021-12-10] MEDS: LITHIUM CARBONATE 150 MG CAP PO SCH ×2 (08:36→21:26)
[2021-12-10] MEDS: BENZTROPINE 1 MG TAB PO SCH ×2 (08:36→21:25)
[2021-12-10] MEDS: predniSONE 10 MG TAB PO SCH (08:36)
[2021-12-10] MEDS: AZELASTINE 137MCG NASAL SPY 30 ML (ASTELIN) SCH ×2 (08:36→21:27)
[2021-12-10] MEDS: REMEDY PHYTOPLEX Z-GUARD PASTE 113GM TUBE (FROM STOREROOM PRODUCT) TOP SCH ×3 (08:37→21:27)
[2021-12-10 14:00] VITALS: BP 131/78
[2021-12-10 20:00] VITALS: BP 129/81
[2021-12-10] MEDS: ATORVASTATIN 20 MG TAB PO SCH (21:24)
[2021-12-10] MEDS: FINASTERIDE 5MG TAB PO SCH (21:25)
[2021-12-10] MEDS: AUGMENTIN 875 MG TAB PO SCH (21:25)
[2021-12-10] MEDS: OMEPRAZOLE 20MG CAP PO SCH (21:25)
[2021-12-10] MEDS: SENNA 8.6 MG TAB (SENOKOT) PO SCH (21:25)
[2021-12-10] MEDS: MULTIVITAMINS/MINERALS THERAP 1 TAB PO SCH (21:25)
[2021-12-11] MEDS: IPRATROPIUM HFA INHALER 12.9 GRAMS (ATROVENT HFA) INH SCH ×4 (01:35→19:22)
[2021-12-11] MEDS: LEVALBUTEROL HFA 45MCG/ACT 15 GM INHALER INH SCH ×4 (01:35→19:21)
[2021-12-11 06:00] VITALS: BP 133/82
[2021-12-11 06:45] LABS: HEMATOCRIT 33.3 % (42.0-52.0); HEMOGLOBIN 10.3 g/dl (13.5-17.5); MEAN CORPUSCULAR HEMOGLOBIN 28.9 pg (27.0-33.0); MEAN CORPUSCULAR HGB CONC 30.9 g/dl (32.0-36.5); MEAN CORPUSCULAR VOLUME 93.5 fl (80.0-96.0); PLATELET COUNT, AUTOMATED 152 10^3/uL (150-450); RED BLOOD COUNT 3.56 10^6/uL (4.30-6.10); WHITE BLOOD COUNT 10.4 10^3/uL (4.0-10.0)
[2021-12-11 07:07] LABS: CREATININE FOR GFR 1.54 MG/DL (0.70-1.30); GLOMERULAR FILTRATION RATE 48.5 (>49); MAGNESIUM LEVEL 2.3 MG/DL (1.8-2.4); PHOSPHORUS LEVEL 2.3 MG/DL (2.5-4.9); POTASSIUM SERUM 3.8 MEQ/L (3.5-5.1)
[2021-12-11] MEDS: MAGIC MOUTHWASH SUSPENSION BTL SSP SCH ×3 (07:30→17:30)
[2021-12-11] MEDS: SUCRALFATE 1 GM TAB PO SCH ×4 (08:39→20:42)
[2021-12-11] MEDS: AZELASTINE 137MCG NASAL SPY 30 ML (ASTELIN) SCH ×2 (08:39→20:43)
[2021-12-11] MEDS: predniSONE 10 MG TAB PO SCH (08:40)
[2021-12-11] MEDS: LACTOBACILLUS ACIDOPHILUS CAP (BACID) PO SCH ×4 (08:40→20:42)
[2021-12-11] MEDS: guaiFENesin 200 MG TAB PO SCH ×3 (08:40→20:41)
[2021-12-11] MEDS: LEVEMIR (INSULIN DETEMIR) 1 UNITS/0.01ML SC SCH ×2 (08:40→20:41)
[2021-12-11] MEDS: HumaLOG INSULIN (NovoLOG) PER UNIT SC SCH ×4 (08:40→21:00)
[2021-12-11] MEDS: lamoTRIgine 100MG TAB PO SCH ×2 (08:41→20:42)
[2021-12-11] MEDS: AUGMENTIN 875 MG TAB PO SCH ×2 (08:41→20:42)
[2021-12-11] MEDS: DOCUSATE SODIUM 100MG CAPSULE PO SCH ×2 (08:41→21:00)
[2021-12-11] MEDS: APIXABAN 5 MG TAB (ELIQUIS) PO SCH ×2 (08:41→20:42)
[2021-12-11] MEDS: LITHIUM CARBONATE 150 MG CAP PO SCH ×2 (08:41→20:41)
[2021-12-11] MEDS: CARVedilol 6.25 MG TAB PO SCH ×2 (08:41→20:42)
[2021-12-11] MEDS: BENZTROPINE 1 MG TAB PO SCH ×2 (08:41→20:42)
[2021-12-11] MEDS: REMEDY PHYTOPLEX Z-GUARD PASTE 113GM TUBE (FROM STOREROOM PRODUCT) TOP SCH ×3 (08:42→20:43)
[2021-12-11 14:00] VITALS: BP 127/78
[2021-12-11 19:36] VITALS: BP 155/84
[2021-12-11] MEDS: ATORVASTATIN 20 MG TAB PO SCH (20:42)
[2021-12-11] MEDS: FINASTERIDE 5MG TAB PO SCH (20:42)
[2021-12-11] MEDS: OMEPRAZOLE 20MG CAP PO SCH (20:42)
[2021-12-11] MEDS: MULTIVITAMINS/MINERALS THERAP 1 TAB PO SCH (20:43)
[2021-12-11] MEDS: SENNA 8.6 MG TAB (SENOKOT) PO SCH (21:00)
[2021-12-12] MEDS: LEVALBUTEROL HFA 45MCG/ACT 15 GM INHALER INH SCH ×4 (01:05→19:38)
[2021-12-12] MEDS: IPRATROPIUM HFA INHALER 12.9 GRAMS (ATROVENT HFA) INH SCH ×4 (01:05→20:00)
[2021-12-12 05:59] VITALS: BP 127/88
[2021-12-12] MEDS: HumaLOG INSULIN (NovoLOG) PER UNIT SC SCH ×4 (07:30→21:00)
[2021-12-12] MEDS: MAGIC MOUTHWASH SUSPENSION BTL SSP SCH ×3 (07:30→17:08)
[2021-12-12] MEDS: LEVEMIR (INSULIN DETEMIR) 1 UNITS/0.01ML SC SCH ×2 (08:01→21:29)
[2021-12-12] MEDS: DOCUSATE SODIUM 100MG CAPSULE PO SCH ×2 (09:00→21:00)
[2021-12-12] MEDS: SUCRALFATE 1 GM TAB PO SCH ×4 (10:28→21:31)
[2021-12-12] MEDS: guaiFENesin 200 MG TAB PO SCH ×3 (10:28→21:30)
[2021-12-12] MEDS: LACTOBACILLUS ACIDOPHILUS CAP (BACID) PO SCH ×4 (10:28→21:31)
[2021-12-12] MEDS: APIXABAN 5 MG TAB (ELIQUIS) PO SCH ×2 (10:28→21:31)
[2021-12-12] MEDS: LITHIUM CARBONATE 150 MG CAP PO SCH ×2 (10:28→21:30)
[2021-12-12] MEDS: AUGMENTIN 875 MG TAB PO SCH ×2 (10:28→21:31)
[2021-12-12] MEDS: predniSONE 10 MG TAB PO SCH (10:28)
[2021-12-12] MEDS: CARVedilol 6.25 MG TAB PO SCH ×2 (10:29→21:31)
[2021-12-12] MEDS: BENZTROPINE 1 MG TAB PO SCH ×2 (10:29→21:31)
[2021-12-12] MEDS: lamoTRIgine 100MG TAB PO SCH ×2 (10:29→21:30)
[2021-12-12] MEDS: REMEDY PHYTOPLEX Z-GUARD PASTE 113GM TUBE (FROM STOREROOM PRODUCT) TOP SCH ×3 (10:31→21:33)
[2021-12-12] MEDS: AZELASTINE 137MCG NASAL SPY 30 ML (ASTELIN) SCH ×2 (10:31→21:30)
[2021-12-12 14:00] VITALS: BP 131/76
[2021-12-12 20:00] VITALS: BP 132/86
[2021-12-12] MEDS: SENNA 8.6 MG TAB (SENOKOT) PO SCH (21:00)
[2021-12-12] MEDS: MULTIVITAMINS/MINERALS THERAP 1 TAB PO SCH (21:30)
[2021-12-12] MEDS: FINASTERIDE 5MG TAB PO SCH (21:31)
[2021-12-12] MEDS: OMEPRAZOLE 20MG CAP PO SCH (21:31)
[2021-12-12] MEDS: ATORVASTATIN 20 MG TAB PO SCH (21:31)
[2021-12-13] MEDS: LEVALBUTEROL HFA 45MCG/ACT 15 GM INHALER INH SCH ×2 (00:52→07:27)
[2021-12-13] MEDS: IPRATROPIUM HFA INHALER 12.9 GRAMS (ATROVENT HFA) INH SCH ×2 (00:52→07:27)
[2021-12-13 06:00] VITALS: BP 142/88
[2021-12-13] MEDS: DOCUSATE SODIUM 100MG CAPSULE PO SCH (07:06)
[2021-12-13] MEDS: MAGIC MOUTHWASH SUSPENSION BTL SSP SCH ×2 (07:06→11:43)
[2021-12-13] MEDS: HumaLOG INSULIN (NovoLOG) PER UNIT SC SCH ×2 (07:06→11:42)
[2021-12-13] MEDS: LEVEMIR (INSULIN DETEMIR) 1 UNITS/0.01ML SC SCH (07:06)
[2021-12-13 08:51] VITALS: BP 144/84
[2021-12-13 08:53] VITALS: BP 144/84
[2021-12-13] MEDS: SUCRALFATE 1 GM TAB PO SCH ×2 (08:53→11:41)
[2021-12-13] MEDS: CARVedilol 6.25 MG TAB PO SCH (08:53)
[2021-12-13] MEDS: LACTOBACILLUS ACIDOPHILUS CAP (BACID) PO SCH ×2 (08:53→11:41)
[2021-12-13] MEDS: LITHIUM CARBONATE 150 MG CAP PO SCH (08:53)
[2021-12-13] MEDS: APIXABAN 5 MG TAB (ELIQUIS) PO SCH (08:53)
[2021-12-13] MEDS: lamoTRIgine 100MG TAB PO SCH (08:53)
[2021-12-13] MEDS: AUGMENTIN 875 MG TAB PO SCH (08:53)
[2021-12-13] MEDS: guaiFENesin 200 MG TAB PO SCH (08:53)
[2021-12-13] MEDS: BENZTROPINE 1 MG TAB PO SCH (08:53)
[2021-12-13] MEDS: predniSONE 10 MG TAB PO SCH (08:53)
[2021-12-13] MEDS: REMEDY PHYTOPLEX Z-GUARD PASTE 113GM TUBE (FROM STOREROOM PRODUCT) TOP SCH (08:54)
[2021-12-13] MEDS: AZELASTINE 137MCG NASAL SPY 30 ML (ASTELIN) SCH (08:54)
[2021-12-13] MEDS ORDERED: CARV6.25 PO (09:44)
[2021-12-13] MEDS ORDERED: TRAD5TAB PO (09:44)
[2021-12-13] MEDS ORDERED: LAMI1TAB9 PO (09:44)
[2021-12-13] MEDS ORDERED: OMEP40CA4 PO (09:44)
[2021-12-13] MEDS ORDERED: SUCR1TAB56 PO (09:44)
[2021-12-13] MEDS ORDERED: ROCA0.25 PO (09:44)
[2021-12-13] MEDS ORDERED: FINA5TAB2 PO (09:44)
[2021-12-13] MEDS ORDERED: LITH150C PO (09:44)
[2021-12-13] MEDS ORDERED: INCR1INH INH (09:44)
[2021-12-13] MEDS ORDERED: BENZ-52 PO (09:44)
[2021-12-13] MEDS ORDERED: AZEL0.1S (09:44)
[2021-12-13] MEDS ORDERED: ATOR40TA75 PO (09:45)
[2021-12-13] MEDS ORDERED: RISATAB3 PO (09:45)
[2021-12-13] MEDS ORDERED: LEVAINH INH (09:45)
[2021-12-13] MEDS ORDERED: PRED5TA PO (09:45)
[2021-12-13] MEDS ORDERED: IPRAINH INH (09:45)
[2021-12-13] MEDS ORDERED: AMOX875T2 PO (09:45)
[2021-12-13] MEDS ORDERED: ELIQ5TAB PO (09:45)
[2021-12-13 13:30] VITALS: BP 134/85
[2021-12-17] MEDS ORDERED: predniSONE 5 MG TAB PO SCH (09:00)
== END 2021-12-13 13:30 | disposition home or self-care (01) | DRG 948 ==
LOC: M PM&R 13:45
PROVIDERS: ADMIT Physical Medicine & Rehabilitation; ATTEND Physical Medicine & Rehabilitation
DX: R53.1 Weakness (principal); N25.81 Secondary hyperparathyroidism of renal origin; J96.10 Chronic respiratory failure, unspecified whether with hypoxia or hypercapnia; K21.9 Gastro-esophageal reflux disease without esophagitis; R56.9 Unspecified convulsions; F25.9 Schizoaffective disorder, unspecified; E11.9 Type 2 diabetes mellitus without complications; N18.9 Chronic kidney disease, unspecified; F41.9 Anxiety disorder, unspecified; F32.A Depression, unspecified; I87.2 Venous insufficiency (chronic) (peripheral); R13.10 Dysphagia, unspecified; D64.9 Anemia, unspecified; M94.0 Chondrocostal junction syndrome [Tietze]; Z79.01 Long term (current) use of anticoagulants; Z79.899 Other long term (current) drug therapy; Z88.6 Allergy status to analgesic agent

== ENCOUNTER → 2022-01-25 | Outpatient (CLI) | payer MEDICARE, MEDICAID ==
[~2022-01-25] MED LIST changes: +AMOX875T2 PO; +IPRAINH INH; +LEVAINH INH; +PRED5TA PO; +RISATAB3 PO
== END ==
LOC: M PLAIMG 10:48
PROVIDERS: ATTEND Otolaryngology
DX: K11.8 Other diseases of salivary glands (principal)

== ENCOUNTER 2022-05-14 10:17 | Inpatient (IN) | payer MEDICARE, MEDICAID ==
[~2022-05-14] VITALS: Ht 167.6 cm; Wt 81.1 kg
[2022-05-14] VITALS (11 sets, daily range): BP systolic 71–104; BP diastolic 46–63; O2SAT 100
[2022-05-14] MEDS ORDERED: MIDAZOLAM INJ 2MG/2ML VIAL (J2250 PER 1MG) IV STA ×3 (10:34→11:12)
[2022-05-14] MEDS ORDERED: NS 2,630 ML in IV 1 EA IV ONE (11:00)
[2022-05-14 11:52] LABS: BASO % 0.2 % (0.0-1.0); EOS % 0.1 % (0.0-3.0); HEMATOCRIT 32.7 % (42.0-52.0); HEMOGLOBIN 10.3 g/dl (13.5-17.5); LYMPH # 0.4 10^3/uL (1.5-5.0); LYMPH % 2.4 % (24.0-44.0); MEAN CORPUSCULAR HEMOGLOBIN 29.1 pg (27.0-33.0); MEAN CORPUSCULAR HGB CONC 31.5 g/dl (32.0-36.5); MEAN CORPUSCULAR VOLUME 92.4 fl (80.0-96.0); MONO # 0.8 10^3/uL (0.0-0.8); MONO % 5.4 % (2.0-8.0); NEUTROPHILS # 13.3 10^3/uL (1.5-8.5); PLATELET COUNT, AUTOMATED 172 10^3/uL (150-450); RED BLOOD COUNT 3.54 10^6/uL (4.30-6.10); WHITE BLOOD COUNT 14.8 10^3/uL (4.0-10.0)
[2022-05-14 12:16] LABS: INR 1.26; PROTHROMBIN TIME 16.2 SECONDS (12.7-14.5)
[2022-05-14 12:17] LABS: PARTIAL THROMBOPLASTIN TIME 38.7 SECONDS (25.9-37.0)
[2022-05-14 12:19] LABS: ABG BASE EXCESS -1.9 (-2.0-2.0); ABG HCO3 25.2 MEQ/L (22.0-26.0); ABG O2 SATURATION 98.7 % (95.0-99.0); ABG PARTIAL PRESSURE CO2 54.3 mmHg (35.0-45.0); ABG PARTIAL PRESSURE O2 210.2 mmHg (75.0-100.0); ABG STANDARD HCO3 22.9 MEQ/L (22.0-26.0); ABG TOTAL CO2 26.8 MEQ/L (23.0-31.0); ABG pH (ARTERIAL) 7.284 UNITS (7.350-7.450)
[2022-05-14 12:42] LABS: ALBUMIN 3.1 GM/DL (3.2-5.2); BILIRUBIN,DIRECT 0.2 MG/DL (0.0-0.2); BILIRUBIN,TOTAL 0.9 MG/DL (0.2-1.0); C REACTIVE PROTEIN QUANTITATIV 1.92 MG/DL (0.00-0.30); CALCIUM LEVEL 9.3 MG/DL (8.8-10.2); CREATININE FOR GFR 3.08 MG/DL (0.70-1.30); GLOMERULAR FILTRATION RATE 21.7 (>49); POTASSIUM SERUM 4.7 MEQ/L (3.5-5.1); TOTAL PROTEIN 5.4 GM/DL (6.4-8.2)
[2022-05-14 12:51] LABS: MB/CK RELATIVE INDEX 1.41 (< OR =4)
[2022-05-14 12:55] LABS: APPEARANCE, URINE MANUAL HAZY (CLEAR); COLOR, URINE MANUAL YELLOW (YELLOW)
[2022-05-14] MEDS ORDERED: cefTRIAXone SOD 2 GM in D5W MINI-BAG PLUS 50 ML IV ONE (12:55)
[2022-05-14 12:56] LABS: BILIRUBIN, URINE MANUAL NEGATIVE (NEGATIVE); BLOOD URINE MANUAL NEGATIVE (NEGATIVE); GLUCOSE, URINE (UA) MANUAL NEGATIVE (NEGATIVE); KETONE, URINE MANUAL NEGATIVE (NEGATIVE); NITRITE, URINE MANUAL NEGATIVE (NEGATIVE); PROTEIN, URINE MANUAL TRACE mg/dL (NEGATIVE); UROBILINOGEN, URINE MANUAL NORMAL (NORMAL)
[2022-05-14 12:57] LABS: LEUKOCYTE ESTERASE, URINE MAN POSITIVE (NEGATIVE)
[2022-05-14 13:06] LABS: BACTERIA, URINE MOD AMOUNT; MUCUS, URINE MOD AMOUNT (NEGATIVE); SQUAMOUS EPITHELIAL CELL URINE MOD AMOUNT /hpf (SMALL AMT)
[2022-05-14] MEDS: NS 1,000 ML IV SCH (14:45)
[2022-05-14] MEDS ORDERED: BENZ-52 PO (14:56)
[2022-05-14] MEDS ORDERED: CALC1CAP31 PO (14:56)
[2022-05-14] MEDS ORDERED: MM S100C PO (14:56)
[2022-05-14] MEDS ORDERED: AZEL1SPR3 NARES (14:56)
[2022-05-14] MEDS ORDERED: CARV6.25 PO (14:56)
[2022-05-14] MEDS ORDERED: OLAN1TAB16 PO ×2 (14:56)
[2022-05-14] MEDS ORDERED: LITH150C PO (14:56)
[2022-05-14] MEDS ORDERED: FERR324T21 PO (14:56)
[2022-05-14] MEDS ORDERED: ACET1TAB55 PO (14:56)
[2022-05-14] MEDS ORDERED: INCR1INH INH (14:56)
[2022-05-14] MEDS ORDERED: FINA5TAB2 PO (14:56)
[2022-05-14] MEDS ORDERED: SUCR1TA PO (14:56)
[2022-05-14] MEDS ORDERED: VASC1CAP2 PO (14:56)
[2022-05-14] MEDS ORDERED: ATOR40TA75 PO (14:56)
[2022-05-14] MEDS ORDERED: OMEP40CA5 PO (14:56)
[2022-05-14] MEDS ORDERED: FLON1SPR NARES (14:56)
[2022-05-14] MEDS ORDERED: VITMTA PO (14:56)
[2022-05-14] MEDS ORDERED: LAMO200T3 PO (14:56)
[2022-05-14] MEDS ORDERED: HALO5TAB33 PO (14:56)
[2022-05-14] MEDS ORDERED: ELIQ5TAB PO (14:56)
[2022-05-14] MEDS ORDERED: TRAD5TAB PO (14:56)
[2022-05-14] MEDS ORDERED: NS 1,000 ML IV ONE (15:00)
[2022-05-14] MEDS ORDERED: HOME MED LIST COMPLETE! XX SCH (15:00)
[2022-05-14] MEDS ORDERED: DEXTROSE 50% 50 ML SYRINGE IV PRN (16:00)
[2022-05-14] MEDS ORDERED: GLUCAGON INJ 1MG VIAL SC PRN (16:00)
[2022-05-14] MEDS ORDERED: GLUCOSE 4GM CHEW TABLET PO PRN (16:00)
[2022-05-14 16:43] LABS: LITHIUM LEVEL 0.7 MEQ/L (0.60-1.20)
[2022-05-14 17:00] LABS: ABG BASE EXCESS -2.9 (-2.0-2.0); ABG HCO3 22.1 MEQ/L (22.0-26.0); ABG O2 SATURATION 98.8 % (95.0-99.0); ABG PARTIAL PRESSURE CO2 39.2 mmHg (35.0-45.0); ABG PARTIAL PRESSURE O2 183.5 mmHg (75.0-100.0); ABG STANDARD HCO3 22.1 MEQ/L (22.0-26.0); ABG TOTAL CO2 23.3 MEQ/L (23.0-31.0); ABG pH (ARTERIAL) 7.369 UNITS (7.350-7.450)
[2022-05-14] MEDS ORDERED: CEFEPIME HCL 1 GM in D5W MINI-BAG PLUS 50 ML IV SCH (17:00)
[2022-05-14] MEDS: INSULIN LISPRO (NovoLOG) PER UNIT SC SCH ×2 (17:30→21:00)
[2022-05-14] MEDS: OLANZapine 5 MG TAB PO SCH (19:02)
[2022-05-14] MEDS: PANTOPRAZOLE 40MG VIAL IV SCH (19:02)
[2022-05-14] MEDS: DOXYCYCLINE HYCLATE 100 MG in D5W MINI-BAG PLUS 100 ML IV SCH (19:04)
[2022-05-14] MEDS ORDERED: CHLORHEXIDINE GLUCONATE 0.12 % 15ML UDC (PERIDEX ORAL RINSE) MT SCH (21:00)
[2022-05-14] MEDS ORDERED: OLANZapine 5 MG TAB PO SCH (21:00)
[2022-05-14] MEDS ORDERED: ACETAMINOPHEN TAB 650MG DOSE (2X325MG) PO PRN (21:05)
[2022-05-14] MEDS: LITHIUM CARBONATE 150 MG CAP PO SCH (21:22)
[2022-05-14] MEDS: BENZTROPINE 1 MG TAB PO SCH (21:22)
[2022-05-14] MEDS: MULTIVITAMINS/MINERALS THERAP 1 TAB PO SCH (21:22)
[2022-05-14] MEDS: APIXABAN 5 MG TAB (ELIQUIS) PO SCH (21:23)
[2022-05-14] MEDS: FLUTICASONE PROP 0.05% NASAL SPRAY 16 GM (FLONASE) NARES SCH (21:23)
[2022-05-14] MEDS: FINASTERIDE 5MG TAB PO SCH (21:23)
[2022-05-14] MEDS: DOCUSATE SODIUM 100MG CAPSULE PO SCH (21:23)
[2022-05-14] MEDS: AZELASTINE 137MCG NASAL SPY 30 ML (ASTELIN) SCH (21:23)
[2022-05-14] MEDS: lamoTRIgine 100MG TAB PO SCH (21:23)
[2022-05-14] MEDS ORDERED: NS 500 ML IV ONE (23:55)
[2022-05-15] VITALS (85 sets, daily range): BP systolic 68–125; BP diastolic 33–78
[2022-05-15] MEDS ORDERED: HYDROCORTISONE 100 MG/2 ML VIAL (J1720 PER 1) IV ONE (00:40)
[2022-05-15] MEDS ORDERED: NS 500 ML IV ONE (01:35)
[2022-05-15] MEDS: PHENYLEPHRINE HCL INJ 50 MG in D5W 495 ML IV SCH ×2 (02:37→15:44)
[2022-05-15] MEDS: NS 1,000 ML IV SCH ×2 (04:14→17:28)
[2022-05-15] MEDS: DOXYCYCLINE HYCLATE 100 MG in D5W MINI-BAG PLUS 100 ML IV SCH (04:14)
[2022-05-15 05:47] LABS: HEMATOCRIT 29.4 % (42.0-52.0); HEMOGLOBIN 9.5 g/dl (13.5-17.5); MEAN CORPUSCULAR HEMOGLOBIN 29.6 pg (27.0-33.0); MEAN CORPUSCULAR HGB CONC 32.3 g/dl (32.0-36.5); MEAN CORPUSCULAR VOLUME 91.6 fl (80.0-96.0); PLATELET COUNT, AUTOMATED 161 10^3/uL (150-450); RED BLOOD COUNT 3.21 10^6/uL (4.30-6.10); WHITE BLOOD COUNT 19.9 10^3/uL (4.0-10.0)
[2022-05-15 06:22] LABS: CALCIUM LEVEL 8.4 MG/DL (8.8-10.2); CREATININE FOR GFR 2.78 MG/DL (0.70-1.30); GLOMERULAR FILTRATION RATE 24.5 (>49); POTASSIUM SERUM 4.8 MEQ/L (3.5-5.1)
[2022-05-15 06:56] LABS: ANISOCYTOSIS 1+; BASOPHILS 1 % (0-1); LYMPHOCYTES 5 % (16-44); METAMYELOCYTES 3 % (0-0); MONOCYTES 2 % (0-5); NEUTROPHILS 79 % (28-66); OVALOCYTES 2+; PLATELET ESTIMATE NORMAL (NORMAL)
[2022-05-15] MEDS ORDERED: MIDODRINE 2.5 MG TAB PO ONE (07:35)
[2022-05-15] MEDS ORDERED: VANCOMYCIN HCL 1,330 MG in IV FLUID PLACE HOLDER 1 EA IV SCH (07:50)
[2022-05-15] MEDS ORDERED: CALCITRIOL 0.25 MCG CAP (S0169) PO SCH (09:00)
[2022-05-15] MEDS: PANTOPRAZOLE 40MG VIAL IV SCH (09:13)
[2022-05-15] MEDS: BENZTROPINE 1 MG TAB PO SCH ×2 (09:13→20:44)
[2022-05-15] MEDS: lamoTRIgine 100MG TAB PO SCH ×2 (09:13→20:44)
[2022-05-15] MEDS: DOCUSATE SODIUM 100MG CAPSULE PO SCH ×2 (09:13→20:44)
[2022-05-15] MEDS: APIXABAN 5 MG TAB (ELIQUIS) PO SCH ×2 (09:13→20:45)
[2022-05-15] MEDS: LITHIUM CARBONATE 150 MG CAP PO SCH ×2 (09:14→20:45)
[2022-05-15] MEDS: AZELASTINE 137MCG NASAL SPY 30 ML (ASTELIN) SCH ×2 (09:14→20:44)
[2022-05-15] MEDS: OLANZapine 5 MG TAB PO SCH ×3 (09:19→15:45)
[2022-05-15] MEDS: INSULIN LISPRO (NovoLOG) PER UNIT SC SCH ×4 (09:20→20:45)
[2022-05-15] MEDS: VANCOMYCIN HCL 1,000 MG, VIAL MATE ADAPTER 1 EACH in D5W 250 ML IV SCH (10:12)
[2022-05-15] MEDS ORDERED: VANCOMYCIN HCL 500 MG in D5W MINI-BAG PLUS 100 ML IV ONE (11:00)
[2022-05-15] MEDS: CEFEPIME HCL 1 GM in D5W MINI-BAG PLUS 50 ML IV SCH (13:44)
[2022-05-15] MEDS: MULTIVITAMINS/MINERALS THERAP 1 TAB PO SCH (20:44)
[2022-05-15] MEDS: FLUTICASONE PROP 0.05% NASAL SPRAY 16 GM (FLONASE) NARES SCH (20:44)
[2022-05-15] MEDS: FINASTERIDE 5MG TAB PO SCH (20:44)
[2022-05-16] VITALS (28 sets, daily range): BP systolic 112–143; BP diastolic 65–88
[2022-05-16] MEDS: CEFEPIME HCL 1 GM in D5W MINI-BAG PLUS 50 ML IV SCH ×2 (00:19→12:14)
[2022-05-16] MEDS: PHENYLEPHRINE HCL INJ 50 MG in D5W 495 ML IV SCH (04:55)
[2022-05-16] MEDS: NS 1,000 ML IV SCH (06:13)
[2022-05-16] MEDS: OLANZapine 5 MG TAB PO SCH ×3 (06:13→16:29)
[2022-05-16] MEDS: INSULIN LISPRO (NovoLOG) PER UNIT SC SCH ×4 (07:30→20:05)
[2022-05-16 07:36] LABS: HEMATOCRIT 32.7 % (42.0-52.0); HEMOGLOBIN 10.2 g/dl (13.5-17.5); MEAN CORPUSCULAR HEMOGLOBIN 29.2 pg (27.0-33.0); MEAN CORPUSCULAR HGB CONC 31.2 g/dl (32.0-36.5); MEAN CORPUSCULAR VOLUME 93.7 fl (80.0-96.0); PLATELET COUNT, AUTOMATED 128 10^3/uL (150-450); RED BLOOD COUNT 3.49 10^6/uL (4.30-6.10); WHITE BLOOD COUNT 10.5 10^3/uL (4.0-10.0)
[2022-05-16 08:21] LABS: CALCIUM LEVEL 8.9 MG/DL (8.8-10.2); CREATININE FOR GFR 2.48 MG/DL (0.70-1.30); GLOMERULAR FILTRATION RATE 27.9 (>49); POTASSIUM SERUM 4.5 MEQ/L (3.5-5.1); VANCOMYCIN LEVEL TROUGH 11.2 UG/ML (10.0-20.0)
[2022-05-16] MEDS: lamoTRIgine 100MG TAB PO SCH ×2 (08:36→20:05)
[2022-05-16] MEDS: APIXABAN 5 MG TAB (ELIQUIS) PO SCH ×2 (08:36→20:05)
[2022-05-16] MEDS: LITHIUM CARBONATE 150 MG CAP PO SCH ×2 (08:36→20:05)
[2022-05-16] MEDS: BENZTROPINE 1 MG TAB PO SCH ×2 (08:37→20:04)
[2022-05-16] MEDS: PANTOPRAZOLE 40MG VIAL IV SCH (08:37)
[2022-05-16] MEDS: AZELASTINE 137MCG NASAL SPY 30 ML (ASTELIN) SCH ×2 (08:37→20:04)
[2022-05-16] MEDS ORDERED: CALCITRIOL 0.25 MCG CAP (S0169) PO SCH (09:00)
[2022-05-16] MEDS ORDERED: MIDODRINE 2.5 MG TAB PO SCH (09:00)
[2022-05-16] MEDS: DOCUSATE SODIUM 100MG CAPSULE PO SCH ×2 (09:00→20:04)
[2022-05-16 09:04] LABS: EOSINOPHILS 3 % (0-3); LYMPHOCYTES 5 % (16-44); MONOCYTES 6 % (0-5); NEUTROPHILS 67 % (28-66)
[2022-05-16 09:05] LABS: OVALOCYTES 4+; PLATELET ESTIMATE DECREASED (NORMAL)
[2022-05-16] MEDS: VANCOMYCIN HCL 1,000 MG, VIAL MATE ADAPTER 1 EACH in D5W 250 ML IV SCH (10:33)
[2022-05-16] MEDS: FLUTICASONE PROP 0.05% NASAL SPRAY 16 GM (FLONASE) NARES SCH (20:04)
[2022-05-16] MEDS: FINASTERIDE 5MG TAB PO SCH (20:04)
[2022-05-16] MEDS: MULTIVITAMINS/MINERALS THERAP 1 TAB PO SCH (20:05)
[2022-05-17] VITALS (21 sets, daily range): BP systolic 87–155; BP diastolic 52–91
[2022-05-17] MEDS: CEFEPIME HCL 1 GM in D5W MINI-BAG PLUS 50 ML IV SCH ×2 (00:05→12:55)
[2022-05-17] MEDS: OLANZapine 5 MG TAB PO SCH ×3 (06:22→15:54)
[2022-05-17] MEDS: INSULIN LISPRO (NovoLOG) PER UNIT SC SCH ×4 (07:46→20:54)
[2022-05-17] MEDS: PANTOPRAZOLE 40MG VIAL IV SCH (08:07)
[2022-05-17] MEDS: BENZTROPINE 1 MG TAB PO SCH ×2 (08:08→20:41)
[2022-05-17] MEDS: DOCUSATE SODIUM 100MG CAPSULE PO SCH ×2 (08:08→20:42)
[2022-05-17] MEDS: lamoTRIgine 100MG TAB PO SCH ×2 (08:08→20:41)
[2022-05-17] MEDS: LITHIUM CARBONATE 150 MG CAP PO SCH ×2 (08:08→20:41)
[2022-05-17] MEDS: APIXABAN 5 MG TAB (ELIQUIS) PO SCH ×2 (08:08→20:42)
[2022-05-17] MEDS: AZELASTINE 137MCG NASAL SPY 30 ML (ASTELIN) SCH ×2 (08:09→20:43)
[2022-05-17] MEDS: ALBUTEROL SULFATE 2.5 MG/0.5 ML INH NEB SOLN NEB PRN ×2 (08:33→18:43)
[2022-05-17 09:19] LABS: HEMATOCRIT 35.9 % (42.0-52.0); HEMOGLOBIN 11.3 g/dl (13.5-17.5); MEAN CORPUSCULAR HEMOGLOBIN 29.2 pg (27.0-33.0); MEAN CORPUSCULAR HGB CONC 31.5 g/dl (32.0-36.5); MEAN CORPUSCULAR VOLUME 92.8 fl (80.0-96.0); PLATELET COUNT, AUTOMATED 160 10^3/uL (150-450); RED BLOOD COUNT 3.87 10^6/uL (4.30-6.10); WHITE BLOOD COUNT 8.7 10^3/uL (4.0-10.0)
[2022-05-17 09:44] LABS: EOSINOPHILS 2 % (0-3); LYMPHOCYTES 13 % (16-44); MONOCYTES 6 % (0-5); NEUTROPHILS 64 % (28-66)
[2022-05-17 09:45] LABS: OVALOCYTES 4+; PLATELET ESTIMATE NORMAL (NORMAL)
[2022-05-17 10:05] LABS: ALBUMIN 3.1 GM/DL (3.2-5.2); BILIRUBIN,TOTAL 0.6 MG/DL (0.2-1.0); CALCIUM LEVEL 10.3 MG/DL (8.8-10.2); CREATININE FOR GFR 2.29 MG/DL (0.70-1.30); GLOMERULAR FILTRATION RATE 30.6 (>49); MAGNESIUM LEVEL 2.3 MG/DL (1.8-2.4); TOTAL PROTEIN 6.5 GM/DL (6.4-8.2); VANCOMYCIN LEVEL TROUGH 14.4 UG/ML (10.0-20.0)
[2022-05-17] MEDS: VANCOMYCIN HCL 1,000 MG, VIAL MATE ADAPTER 1 EACH in D5W 250 ML IV SCH (10:32)
[2022-05-17] MEDS ORDERED: CARVedilol 6.25 MG TAB PO SCH ×2 (13:10→21:00)
[2022-05-17] MEDS ORDERED: NITROGLYCERIN 0.4 MG SUBL TABLET SL STA (18:35)
[2022-05-17] MEDS ORDERED: METOPROLOL 5 MG/5 ML VIAL IV STA (19:02)
[2022-05-17] MEDS ORDERED: METOPROLOL 5 MG/5 ML VIAL As Ordered ONE (19:05)
[2022-05-17 19:38] LABS: HEMATOCRIT 33.9 % (42.0-52.0); MEAN CORPUSCULAR HEMOGLOBIN 28.9 pg (27.0-33.0); MEAN CORPUSCULAR HGB CONC 29.5 g/dl (32.0-36.5); PLATELET COUNT, AUTOMATED 158 10^3/uL (150-450); RED BLOOD COUNT 3.46 10^6/uL (4.30-6.10); WHITE BLOOD COUNT 10.2 10^3/uL (4.0-10.0)
[2022-05-17] MEDS: LORazepam 2 MG/ML VIAL IV PRN ×2 (19:45→19:55)
[2022-05-17] MEDS: LEVALBUTEROL 1.25 MG/0.5 ML CONCENTRATE NEB INH SCH (20:00)
[2022-05-17 20:04] LABS: BILIRUBIN,TOTAL 0.5 MG/DL (0.2-1.0); CALCIUM LEVEL 10.1 MG/DL (8.8-10.2); CREATININE FOR GFR 2.05 MG/DL (0.70-1.30); GLOMERULAR FILTRATION RATE 34.8 (>49); MAGNESIUM LEVEL 2.1 MG/DL (1.8-2.4); POTASSIUM SERUM 4.4 MEQ/L (3.5-5.1); TOTAL PROTEIN 6.3 GM/DL (6.4-8.2)
[2022-05-17] MEDS ORDERED: ACETAMINOPHEN 650 MG SUPP PR PRN (20:15)
[2022-05-17] MEDS: FINASTERIDE 5MG TAB PO SCH (20:41)
[2022-05-17] MEDS: MULTIVITAMINS/MINERALS THERAP 1 TAB PO SCH (20:42)
[2022-05-17] MEDS: FLUTICASONE PROP 0.05% NASAL SPRAY 16 GM (FLONASE) NARES SCH (20:43)
[2022-05-17] MEDS ORDERED: OLANZapine 10 MG TAB PO SCH (21:00)
[2022-05-17] MEDS ORDERED: LORazepam 2 MG/ML VIAL IV ONE (22:50)
[2022-05-18] VITALS (28 sets, daily range): BP systolic 76–128; BP diastolic 43–78
[2022-05-18] MEDS ORDERED: NS 250 ML IV ONE ×2 (00:50→00:55)
[2022-05-18] MEDS: LEVALBUTEROL 1.25 MG/0.5 ML CONCENTRATE NEB INH SCH ×4 (01:22→20:32)
[2022-05-18] MEDS: OLANZapine 5 MG TAB PO SCH ×3 (06:22→17:14)
[2022-05-18] MEDS: MOXIFLOXACIN 400 MG TAB PO SCH (06:22)
[2022-05-18] MEDS: INSULIN LISPRO (NovoLOG) PER UNIT SC SCH ×4 (07:30→20:09)
[2022-05-18 08:31] LABS: BASO % 0.4 % (0.0-1.0); EOS # 0.3 10^3/uL (0.0-0.5); EOS % 3.3 % (0.0-3.0); HEMATOCRIT 33.5 % (42.0-52.0); HEMOGLOBIN 10.3 g/dl (13.5-17.5); LYMPH # 0.8 10^3/uL (1.5-5.0); LYMPH % 10.3 % (24.0-44.0); MEAN CORPUSCULAR HEMOGLOBIN 29.3 pg (27.0-33.0); MEAN CORPUSCULAR HGB CONC 30.7 g/dl (32.0-36.5); MEAN CORPUSCULAR VOLUME 95.4 fl (80.0-96.0); MONO # 0.8 10^3/uL (0.0-0.8); NEUTROPHILS % 75.2 % (36.0-66.0); PLATELET COUNT, AUTOMATED 160 10^3/uL (150-450); RED BLOOD COUNT 3.51 10^6/uL (4.30-6.10)
[2022-05-18] MEDS: NICOTINE 7 MG/24 HR TRANSDERMAL TD SCH (09:00)
[2022-05-18 09:10] LABS: CALCIUM LEVEL 10.1 MG/DL (8.8-10.2); CREATININE FOR GFR 2.24 MG/DL (0.70-1.30); GLOMERULAR FILTRATION RATE 31.4 (>49); POTASSIUM SERUM 5.4 MEQ/L (3.5-5.1)
[2022-05-18] MEDS: PANTOPRAZOLE 40MG VIAL IV SCH (10:45)
[2022-05-18] MEDS: lamoTRIgine 100MG TAB PO SCH ×2 (10:45→20:08)
[2022-05-18] MEDS: DOCUSATE SODIUM 100MG CAPSULE PO SCH ×2 (10:46→20:07)
[2022-05-18] MEDS: LITHIUM CARBONATE 150 MG CAP PO SCH ×2 (10:46→20:07)
[2022-05-18] MEDS: BENZTROPINE 1 MG TAB PO SCH ×2 (10:46→20:11)
[2022-05-18] MEDS: APIXABAN 5 MG TAB (ELIQUIS) PO SCH ×2 (10:46→20:08)
[2022-05-18] MEDS: AZELASTINE 137MCG NASAL SPY 30 ML (ASTELIN) SCH ×2 (10:46→20:08)
[2022-05-18 12:10] LABS: PTH INTACT 85.4 PG/ML (18.5-88.0)
[2022-05-18] MEDS ORDERED: HumuLIN R (REGULAR) INSULIN (NovoLIN R) **100U/ML** PER UNIT IV STA (12:34)
[2022-05-18] MEDS ORDERED: DEXTROSE 50% 50 ML SYRINGE IV STA (12:34)
[2022-05-18 16:25] LABS: CALCIUM LEVEL 10.4 MG/DL (8.8-10.2); CREATININE FOR GFR 2.28 MG/DL (0.70-1.30); GLOMERULAR FILTRATION RATE 30.7 (>49); POTASSIUM SERUM 4.6 MEQ/L (3.5-5.1)
[2022-05-18] MEDS: FLUTICASONE PROP 0.05% NASAL SPRAY 16 GM (FLONASE) NARES SCH (20:08)
[2022-05-18] MEDS: FINASTERIDE 5MG TAB PO SCH (20:08)
[2022-05-18] MEDS: MULTIVITAMINS/MINERALS THERAP 1 TAB PO SCH (20:08)
[2022-05-18 20:13] LABS: CALCIUM LEVEL 10.2 MG/DL (8.8-10.2); CREATININE FOR GFR 2.25 MG/DL (0.70-1.30); GLOMERULAR FILTRATION RATE 31.2 (>49); POTASSIUM SERUM 4.8 MEQ/L (3.5-5.1)
[2022-05-18 23:46] LABS: CALCIUM LEVEL 10.3 MG/DL (8.8-10.2); CREATININE FOR GFR 2.21 MG/DL (0.70-1.30); GLOMERULAR FILTRATION RATE 31.9 (>49); POTASSIUM SERUM 4.9 MEQ/L (3.5-5.1)
[2022-05-19] VITALS (8 sets, daily range): BP systolic 96–125; BP diastolic 60–74
[2022-05-19] MEDS: LEVALBUTEROL 1.25 MG/0.5 ML CONCENTRATE NEB INH SCH ×4 (01:33→21:12)
[2022-05-19] MEDS ORDERED: OLANZapine INTRAMUSCULAR 10MG VIAL IM STA (02:41)
[2022-05-19] MEDS: MOXIFLOXACIN 400 MG TAB PO SCH (05:04)
[2022-05-19 05:08] LABS: BASO % 0.3 % (0.0-1.0); EOS # 0.2 10^3/uL (0.0-0.5); EOS % 4.1 % (0.0-3.0); HEMATOCRIT 31.8 % (42.0-52.0); HEMOGLOBIN 9.7 g/dl (13.5-17.5); LYMPH % 17.6 % (24.0-44.0); MEAN CORPUSCULAR HGB CONC 30.5 g/dl (32.0-36.5); MEAN CORPUSCULAR VOLUME 95.2 fl (80.0-96.0); MONO # 0.8 10^3/uL (0.0-0.8); MONO % 13.2 % (2.0-8.0); NEUTROPHILS # 3.8 10^3/uL (1.5-8.5); NEUTROPHILS % 63.4 % (36.0-66.0); PLATELET COUNT, AUTOMATED 153 10^3/uL (150-450); RED BLOOD COUNT 3.34 10^6/uL (4.30-6.10); WHITE BLOOD COUNT 5.9 10^3/uL (4.0-10.0)
[2022-05-19 05:33] LABS: CALCIUM LEVEL 10.3 MG/DL (8.8-10.2); CREATININE FOR GFR 2.21 MG/DL (0.70-1.30); GLOMERULAR FILTRATION RATE 31.9 (>49); POTASSIUM SERUM 4.7 MEQ/L (3.5-5.1)
[2022-05-19] MEDS: OLANZapine 5 MG TAB PO SCH ×3 (06:01→16:12)
[2022-05-19] MEDS: PANTOPRAZOLE 40MG VIAL IV SCH (08:14)
[2022-05-19] MEDS: INSULIN LISPRO (NovoLOG) PER UNIT SC SCH ×4 (08:15→20:30)
[2022-05-19] MEDS: NICOTINE 7 MG/24 HR TRANSDERMAL TD SCH (08:15)
[2022-05-19] MEDS: BENZTROPINE 1 MG TAB PO SCH ×2 (08:16→20:41)
[2022-05-19] MEDS: lamoTRIgine 100MG TAB PO SCH ×2 (08:16→20:41)
[2022-05-19] MEDS: APIXABAN 5 MG TAB (ELIQUIS) PO SCH ×2 (08:16→20:40)
[2022-05-19] MEDS: AZELASTINE 137MCG NASAL SPY 30 ML (ASTELIN) SCH ×2 (08:19→20:41)
[2022-05-19] MEDS: LITHIUM CARBONATE 150 MG CAP PO SCH ×2 (08:19→20:41)
[2022-05-19] MEDS: DOCUSATE SODIUM 100MG CAPSULE PO SCH ×2 (08:19→20:40)
[2022-05-19 09:35] LABS: CALCIUM LEVEL 10.6 MG/DL (8.8-10.2); CREATININE FOR GFR 2.24 MG/DL (0.70-1.30); GLOMERULAR FILTRATION RATE 31.4 (>49); POTASSIUM SERUM 4.6 MEQ/L (3.5-5.1)
[2022-05-19] MEDS ORDERED: D5W 1,000 ML IV SCH (10:00)
[2022-05-19 13:35] LABS: CALCIUM LEVEL 9.9 MG/DL (8.8-10.2); CREATININE FOR GFR 2.04 MG/DL (0.70-1.30); POTASSIUM SERUM 4.5 MEQ/L (3.5-5.1)
[2022-05-19] MEDS: FINASTERIDE 5MG TAB PO SCH (20:41)
[2022-05-19] MEDS: FLUTICASONE PROP 0.05% NASAL SPRAY 16 GM (FLONASE) NARES SCH (20:41)
[2022-05-19] MEDS: MULTIVITAMINS/MINERALS THERAP 1 TAB PO SCH (20:41)
[2022-05-20 02:00] VITALS: BP 105/68
[2022-05-20] MEDS: LEVALBUTEROL 1.25 MG/0.5 ML CONCENTRATE NEB INH SCH ×2 (02:00→06:57)
[2022-05-20] MEDS: OLANZapine 5 MG TAB PO SCH ×2 (05:56→11:49)
[2022-05-20] MEDS: MOXIFLOXACIN 400 MG TAB PO SCH (05:56)
[2022-05-20 06:00] VITALS: BP 106/69
[2022-05-20 08:30] LABS: BASO % 0.7 % (0.0-1.0); EOS # 0.3 10^3/uL (0.0-0.5); EOS % 5.4 % (0.0-3.0); HEMATOCRIT 31.6 % (42.0-52.0); HEMOGLOBIN 9.7 g/dl (13.5-17.5); LYMPH # 1.2 10^3/uL (1.5-5.0); LYMPH % 25.2 % (24.0-44.0); MEAN CORPUSCULAR HEMOGLOBIN 28.6 pg (27.0-33.0); MEAN CORPUSCULAR HGB CONC 30.7 g/dl (32.0-36.5); MEAN CORPUSCULAR VOLUME 93.2 fl (80.0-96.0); MONO # 0.5 10^3/uL (0.0-0.8); MONO % 11.7 % (2.0-8.0); NEUTROPHILS # 2.4 10^3/uL (1.5-8.5); PLATELET COUNT, AUTOMATED 171 10^3/uL (150-450); RED BLOOD COUNT 3.39 10^6/uL (4.30-6.10); WHITE BLOOD COUNT 4.6 10^3/uL (4.0-10.0)
[2022-05-20] MEDS: INSULIN LISPRO (NovoLOG) PER UNIT SC SCH ×2 (08:56→11:38)
[2022-05-20] MEDS: DOCUSATE SODIUM 100MG CAPSULE PO SCH (08:56)
[2022-05-20] MEDS: APIXABAN 5 MG TAB (ELIQUIS) PO SCH (08:56)
[2022-05-20] MEDS: PANTOPRAZOLE 40MG VIAL IV SCH (08:56)
[2022-05-20] MEDS: lamoTRIgine 100MG TAB PO SCH (08:57)
[2022-05-20] MEDS: BENZTROPINE 1 MG TAB PO SCH (08:57)
[2022-05-20] MEDS: AZELASTINE 137MCG NASAL SPY 30 ML (ASTELIN) SCH (08:59)
[2022-05-20] MEDS: NICOTINE 7 MG/24 HR TRANSDERMAL TD SCH (08:59)
[2022-05-20 09:03] LABS: CALCIUM LEVEL 9.8 MG/DL (8.8-10.2); CREATININE FOR GFR 2.11 MG/DL (0.70-1.30); GLOMERULAR FILTRATION RATE 33.6 (>49); POTASSIUM SERUM 4.6 MEQ/L (3.5-5.1)
[2022-05-20] MEDS: LITHIUM CARBONATE 150 MG CAP PO SCH (09:04)
[2022-05-20 10:00] VITALS: BP 108/74
[2022-05-20] MEDS ORDERED: MOXI400T11 PO (10:43)
== END 2022-05-20 12:48 | disposition home or self-care (01) | DRG 871 ==
LOC: EDBD 10:17 → M ED 10:17 → M ED INP 14:25 → ENRESERV 16:46 → M ICU 18:12 → M MSPAV 05-19 15:15
PROVIDERS: ADMIT Internal Medicine; ATTEND Family Medicine
DX: A41.9 Sepsis, unspecified organism (principal); J96.21 Acute and chronic respiratory failure with hypoxia; J96.22 Acute and chronic respiratory failure with hypercapnia; R65.21 Severe sepsis with septic shock; G93.41 Metabolic encephalopathy; N39.0 Urinary tract infection, site not specified; N17.9 Acute kidney failure, unspecified; I24.8 Other forms of acute ischemic heart disease; I82.501 Chronic embolism and thrombosis of unspecified deep veins of right lower extremity; N18.4 Chronic kidney disease, stage 4 (severe); E87.21 Acute metabolic acidosis; E87.0 Hyperosmolality and hypernatremia; L03.115 Cellulitis of right lower limb; N25.81 Secondary hyperparathyroidism of renal origin; E87.29 Other acidosis; J44.9 Chronic obstructive pulmonary disease, unspecified; I12.9 Hypertensive chronic kidney disease with stage 1 through stage 4 chronic kidney disease, or unspecified chronic kidney disease; E11.22 Type 2 diabetes mellitus with diabetic chronic kidney disease; K21.9 Gastro-esophageal reflux disease without esophagitis; G40.909 Epilepsy, unspecified, not intractable, without status epilepticus; I45.10 Unspecified right bundle-branch block; F25.9 Schizoaffective disorder, unspecified; Z79.01 Long term (current) use of anticoagulants; F79 Unspecified intellectual disabilities; Z86.718 Personal history of other venous thrombosis and embolism; F41.9 Anxiety disorder, unspecified; N40.0 Benign prostatic hyperplasia without lower urinary tract symptoms; Z88.6 Allergy status to analgesic agent; Z79.899 Other long term (current) drug therapy; E78.5 Hyperlipidemia, unspecified; D50.9 Iron deficiency anemia, unspecified; E87.5 Hyperkalemia; E83.52 Hypercalcemia

== ENCOUNTER → 2022-07-19 | Outpatient (REF) | payer MEDICARE, MEDICAID ==
[~2022-07-19] MED LIST changes: +AZEL1SPR3 NARES; -BENZ-52 PO; +BENZ1TAB5 PO; +CALC1CAP31 PO; +CILO0.3S OS; -DOXY-350 PO; +DOXY-444 PO; +LAMO200T3 PO; +MM S100C PO; +MOXI400T11 PO; +OMEP40CA5 PO; +SUCR1TA PO; +TRIPOIN9 TOP
[2022-07-19 17:27] LABS: IRON (FE) 69 UG/DL (65-175)
[2022-07-19 17:28] LABS: PERCENT SATURATION 23.5 % (19.7-50.0); TOTAL IRON BINDING CAPACITY 294 UG/DL (250-425)
[2022-07-19 17:34] LABS: VITAMIN B12 LEVEL 735 PG/ML (211-911)
[2022-07-19 17:35] LABS: FERRITIN 118.8 NG/ML (10.5-307.3)
[2022-07-19 17:37] LABS: TOTAL 25(OH) VITAMIN D 32.9 NG/ML (20.0-100.0)
[2022-07-19 17:40] LABS: FOLATE > 24.0 NG/ML (>5.4)
[2022-07-19 20:53] LABS: HEMOGLOBIN A1c 5.3 % (4.0-6.0)
== END ==
LOC: M SFHCADAM 11:26
PROVIDERS: ATTEND Physician Assistant
DX: E55.9 Vitamin D deficiency, unspecified (principal); E11.9 Type 2 diabetes mellitus without complications; D50.9 Iron deficiency anemia, unspecified; Z12.5 Encounter for screening for malignant neoplasm of prostate

== ENCOUNTER 2022-08-06 08:50 | Inpatient (IN) | payer MEDICARE, MEDICAID ==
[2022-08-06] VITALS (9 sets, daily range): BP systolic 85–108; BP diastolic 53–74
[~2022-08-06] VITALS: Ht 167.6 cm; Wt 83.6 kg
[~2022-08-06 08:50] MED LIST changes: +BENZ-52 PO; -BENZ1TAB5 PO; -CILO0.3S OS; -TRIPOIN9 TOP
[2022-08-06] MEDS ORDERED: NS 1,000 ML IV ONE (09:00)
[2022-08-06] MEDS ORDERED: CEFTAROLINE FOSAMIL 600 MG in D5W MINI-BAG PLUS 50 ML IV ONE (09:05)
[2022-08-06] MEDS ORDERED: ACETAMINOPHEN TAB 650MG DOSE (2X325MG) PO ONE (09:05)
[2022-08-06 09:50] LABS: HEMATOCRIT 35.1 % (42.0-52.0); HEMOGLOBIN 11.2 g/dl (13.5-17.5); MEAN CORPUSCULAR HEMOGLOBIN 30.1 pg (27.0-33.0); MEAN CORPUSCULAR HGB CONC 31.9 g/dl (32.0-36.5); MEAN CORPUSCULAR VOLUME 94.4 fl (80.0-96.0); PLATELET COUNT, AUTOMATED 143 10^3/uL (150-450); RED BLOOD COUNT 3.72 10^6/uL (4.30-6.10); WHITE BLOOD COUNT 15.7 10^3/uL (4.0-10.0)
[2022-08-06] MEDS ORDERED: NS 1,480 ML in IV 1 EA IV ONE (09:55)
[2022-08-06 10:15] LABS: ALBUMIN 2.9 G/DL (3.2-5.2); ALKALINE PHOSPHATASE 80 U/L (46-116); ALT/SGPT 40 U/L (7.0-40); AST/SGOT 27 U/L (<34); BILIRUBIN,DIRECT 0.2 MG/DL (<0.4); BILIRUBIN,TOTAL 0.7 MG/DL (0.3-1.2); BLOOD UREA NITROGEN 43 MG/DL (9-23); CALCIUM LEVEL 9.7 MG/DL (8.3-10.6); CARBON DIOXIDE LEVEL 27 MMOL/L (20-31); CHLORIDE LEVEL 108 MMOL/L (98-107); CREATININE FOR GFR 3.32 MG/DL (0.70-1.30); GLOMERULAR FILTRATION RATE 19.9 (>49); GLUCOSE, FASTING 150 MG/DL (74-106); INR 1.48; LIPASE 18 U/L (12-53); POTASSIUM SERUM 4.4 MMOL/L (3.5-5.1); PROTHROMBIN TIME 18.2 SECONDS (12.5-14.5); SODIUM LEVEL 142 MMOL/L (136-145); TOTAL PROTEIN 5.6 G/DL (5.7-8.2)
[2022-08-06 10:16] LABS: RSV AMPLIFICATION NEGATIVE (NEGATIVE)
[2022-08-06 10:16] LABS: PARTIAL THROMBOPLASTIN TIME 62.9 SECONDS (24.8-34.2)
[2022-08-06 10:36] LABS: ATYPICAL LYMPH 3 % (0-5); LYMPHOCYTES 11 % (16-44); MONOCYTES 2 % (0-5); NEUTROPHILS 76 % (28-66)
[2022-08-06 10:37] LABS: PLATELET ESTIMATE DECREASED (NORMAL)
[2022-08-06 10:38] LABS: ANISOCYTOSIS 1+
[2022-08-06 11:27] LABS: ERYTHROCYTE SEDIMENTATION RATE 52 mm/hr (0-20)
[2022-08-06] MEDS ORDERED: NOREPINEPHRINE 4MG IN D5 250ML 4 MG in IV 1 EA IV SCH ×2 (11:55)
[2022-08-06] MEDS ORDERED: INSULIN LISPRO (NovoLOG) PER UNIT SC SCH ×2 (12:00)
[2022-08-06] MEDS ORDERED: TRIPOIN9 TOP (12:34)
[2022-08-06] MEDS ORDERED: HOME MED LIST COMPLETE! XX SCH (12:50)
[2022-08-06] MEDS ORDERED: ALBUTEROL SULFATE 2.5MG/0.5ML INH NEB SOLN NEB PRN (13:45)
[2022-08-06] MEDS ORDERED: GLUCAGON INJ 1MG VIAL SC PRN ×2 (13:50→15:45)
[2022-08-06] MEDS ORDERED: VANCOMYCIN HCL 750 MG, VIAL MATE ADAPTER 1 EACH in NS 250 ML IV SCH (13:50)
[2022-08-06] MEDS ORDERED: DEXTROSE 50% 50ML SYRINGE IV PRN (13:50)
[2022-08-06] MEDS ORDERED: NS 1,000 ML IV SCH (13:50)
[2022-08-06] MEDS ORDERED: GLUCOSE 4GM CHEW TABLET PO PRN ×2 (13:50→15:45)
[2022-08-06] MEDS ORDERED: PIPERACILLIN/TAZOBACTAM SOD 2.25 GM in D5W MINI-BAG PLUS 50 ML IV SCH (14:00)
[2022-08-06] MEDS: NOREPINEPHRINE 4MG IN D5 250ML 4 MG in IV 1 EA IV SCH ×4 (14:15→19:54)
[2022-08-06] MEDS ORDERED: ACETAMINOPHEN TAB 650MG DOSE (2X325MG) PO PRN (14:50)
[2022-08-06] MEDS ORDERED: PIPERACILLIN/TAZOBACTAM SOD 3.375 GM in D5W MINI-BAG PLUS 50 ML IV SCH (15:00)
[2022-08-06] MEDS: OLANZapine 5 MG TAB PO SCH (16:38)
[2022-08-06] MEDS: MULTIVITAMINS/MINERALS THERAP 1 TAB PO SCH (16:38)
[2022-08-06] MEDS: VANCOMYCIN HCL 1,000 MG, VIAL MATE ADAPTER 1 EACH in D5W 250 ML IV SCH (16:38)
[2022-08-06] MEDS: FERROUS GLUCONATE 324 MG TAB PO SCH (16:38)
[2022-08-06] MEDS: PANTOPRAZOLE 40MG VIAL IV SCH (16:38)
[2022-08-06] MEDS: INSULIN LISPRO (NovoLOG) PER UNIT SC SCH ×2 (17:30→20:52)
[2022-08-06 17:38] LABS: LITHIUM LEVEL < 1.00 MEQ/L (0.60-1.20)
[2022-08-06] MEDS: CIPROFLOXACIN 0.3% OPHTH SOLN 2.5ML OS SCH ×2 (18:13→20:12)
[2022-08-06] MEDS: SUCRALFATE 1 GM TAB PO SCH ×2 (18:14→20:12)
[2022-08-06] MEDS: PIPERACILLIN/TAZOBACTAM SOD 3.375 GM in D5W MINI-BAG PLUS 50 ML IV SCH ×2 (18:14→23:49)
[2022-08-06] MEDS ORDERED: VANCOMYCIN HCL 500 MG in D5W MINI-BAG PLUS 100 ML IV ONE (20:00)
[2022-08-06] MEDS: APIXABAN 5 MG TAB (ELIQUIS) PO SCH (20:11)
[2022-08-06] MEDS: lamoTRIgine 100MG TAB PO SCH (20:11)
[2022-08-06] MEDS: FINASTERIDE 5MG TAB PO SCH (20:12)
[2022-08-06] MEDS: BENZTROPINE 1 MG TAB PO SCH (20:12)
[2022-08-06] MEDS: DOCUSATE SODIUM 100MG CAPSULE PO SCH (20:12)
[2022-08-06] MEDS ORDERED: LITHIUM CARBONATE 150 MG CAP PO ONE (21:35)
[2022-08-07] VITALS (33 sets, daily range): BP systolic 77–115; BP diastolic 37–74
[2022-08-07] MEDS: NOREPINEPHRINE 4MG IN D5 250ML 4 MG in IV 1 EA IV SCH ×4 (00:38→10:00)
[2022-08-07] MEDS: OLANZapine 5 MG TAB PO SCH ×3 (06:04→16:56)
[2022-08-07] MEDS: PIPERACILLIN/TAZOBACTAM SOD 3.375 GM in D5W MINI-BAG PLUS 50 ML IV SCH ×3 (06:04→21:28)
[2022-08-07] MEDS: INSULIN LISPRO (NovoLOG) PER UNIT SC SCH ×4 (07:30→21:00)
[2022-08-07] MEDS: SUCRALFATE 1 GM TAB PO SCH ×5 (07:56→21:00)
[2022-08-07] MEDS: NS 1,000 ML IV SCH ×2 (08:07→17:30)
[2022-08-07] MEDS: BENZTROPINE 1 MG TAB PO SCH ×2 (08:42→20:07)
[2022-08-07] MEDS: APIXABAN 5 MG TAB (ELIQUIS) PO SCH ×2 (08:42→20:07)
[2022-08-07] MEDS: LITHIUM CARBONATE 150 MG CAP PO SCH ×2 (08:42→20:08)
[2022-08-07] MEDS: PANTOPRAZOLE 40MG VIAL IV SCH (08:42)
[2022-08-07] MEDS: MULTIVITAMINS/MINERALS THERAP 1 TAB PO SCH (08:42)
[2022-08-07] MEDS: DOCUSATE SODIUM 100MG CAPSULE PO SCH ×3 (08:43→21:00)
[2022-08-07] MEDS: CIPROFLOXACIN 0.3% OPHTH SOLN 2.5ML OS SCH ×4 (08:43→20:08)
[2022-08-07] MEDS: FERROUS GLUCONATE 324 MG TAB PO SCH (08:43)
[2022-08-07] MEDS: lamoTRIgine 100MG TAB PO SCH ×2 (08:43→20:08)
[2022-08-07] MEDS ORDERED: LORazepam 2 MG/ML VIAL IV STA (15:03)
[2022-08-07] MEDS ORDERED: LORazepam 2 MG TAB PO ONE (15:05)
[2022-08-07] MEDS ORDERED: flumazeniL 0.5MG/5ML VIAL As Ordered ONE (15:16)
[2022-08-07] MEDS ORDERED: LIDOCAINE 1% MDV 20ML VIAL As Ordered ONE (15:45)
[2022-08-07] MEDS ORDERED: SODIUM CHLORIDE 0.9% INJ 10 ML SYR IV PRN (16:40)
[2022-08-07 17:32] LABS: HEMATOCRIT 29.9 % (42.0-52.0); HEMOGLOBIN 9.4 g/dl (13.5-17.5); MEAN CORPUSCULAR HEMOGLOBIN 29.9 pg (27.0-33.0); MEAN CORPUSCULAR HGB CONC 31.4 g/dl (32.0-36.5); MEAN CORPUSCULAR VOLUME 95.2 fl (80.0-96.0); PLATELET COUNT, AUTOMATED 129 10^3/uL (150-450); RED BLOOD COUNT 3.14 10^6/uL (4.30-6.10)
[2022-08-07 17:55] LABS: MAGNESIUM LEVEL 2.1 MG/DL (1.8-2.4)
[2022-08-07 17:56] LABS: ALBUMIN 2.6 G/DL (3.2-5.2); BILIRUBIN,TOTAL 0.4 MG/DL (0.3-1.2); CALCIUM LEVEL 9.3 MG/DL (8.3-10.6); CREATININE FOR GFR 2.42 MG/DL (0.70-1.30); GLOMERULAR FILTRATION RATE 28.7 (>49); POTASSIUM SERUM 4.1 MMOL/L (3.5-5.1); TOTAL PROTEIN 5.4 G/DL (5.7-8.2)
[2022-08-07] MEDS: VANCOMYCIN HCL 1,000 MG, VIAL MATE ADAPTER 1 EACH in D5W 250 ML IV SCH (18:00)
[2022-08-07] MEDS: SODIUM CHLORIDE 0.9% INJ 10 ML SYR IV SCH (18:01)
[2022-08-07 18:18] LABS: ATYPICAL LYMPH 2 % (0-5); BASOPHILS 1 % (0-1); EOSINOPHILS 3 % (0-3); LYMPHOCYTES 11 % (16-44); MONOCYTES 1 % (0-5); NEUTROPHILS 42 % (28-66); PLATELET ESTIMATE DECREASED (NORMAL)
[2022-08-07] MEDS: FINASTERIDE 5MG TAB PO SCH (20:07)
[2022-08-08] VITALS: BP 108/69
[2022-08-08] MEDS: PIPERACILLIN/TAZOBACTAM SOD 3.375 GM in D5W MINI-BAG PLUS 50 ML IV SCH ×3 (00:55→10:12)
[2022-08-08] MEDS: NS 1,000 ML IV SCH (02:55)
[2022-08-08 04:00] VITALS: BP 108/75
[2022-08-08] MEDS: OLANZapine 5 MG TAB PO SCH ×2 (06:15→12:16)
[2022-08-08] MEDS: SODIUM CHLORIDE 0.9% INJ 10 ML SYR IV SCH (06:15)
[2022-08-08 06:57] LABS: BASO % 0.2 % (0.0-1.0); EOS # 0.3 10^3/uL (0.0-0.5); EOS % 5.5 % (0.0-3.0); HEMATOCRIT 27.6 % (42.0-52.0); HEMOGLOBIN 8.6 g/dl (13.5-17.5); LYMPH # 0.7 10^3/uL (1.5-5.0); LYMPH % 13.3 % (24.0-44.0); MEAN CORPUSCULAR HEMOGLOBIN 29.9 pg (27.0-33.0); MEAN CORPUSCULAR HGB CONC 31.2 g/dl (32.0-36.5); MEAN CORPUSCULAR VOLUME 95.8 fl (80.0-96.0); MONO # 0.4 10^3/uL (0.0-0.8); MONO % 8.1 % (2.0-8.0); NEUTROPHILS # 3.7 10^3/uL (1.5-8.5); NEUTROPHILS % 72.5 % (36.0-66.0); PLATELET COUNT, AUTOMATED 123 10^3/uL (150-450); RED BLOOD COUNT 2.88 10^6/uL (4.30-6.10); WHITE BLOOD COUNT 5.1 10^3/uL (4.0-10.0)
[2022-08-08 07:20] LABS: MAGNESIUM LEVEL 1.9 MG/DL (1.8-2.4)
[2022-08-08 07:25] LABS: ALBUMIN 2.2 G/DL (3.2-5.2); BILIRUBIN,TOTAL 0.3 MG/DL (0.3-1.2); CALCIUM LEVEL 8.7 MG/DL (8.3-10.6); CREATININE FOR GFR 2.17 MG/DL (0.70-1.30); GLOMERULAR FILTRATION RATE 32.6 (>49); POTASSIUM SERUM 4.4 MMOL/L (3.5-5.1); TOTAL PROTEIN 5.1 G/DL (5.7-8.2)
[2022-08-08] MEDS: INSULIN LISPRO (NovoLOG) PER UNIT SC SCH ×2 (07:47→12:16)
[2022-08-08] MEDS: SUCRALFATE 1 GM TAB PO SCH ×2 (07:48→12:16)
[2022-08-08 08:00] VITALS: BP 93/58
[2022-08-08] MEDS: PANTOPRAZOLE 40MG VIAL IV SCH (08:40)
[2022-08-08] MEDS: DOCUSATE SODIUM 100MG CAPSULE PO SCH (08:41)
[2022-08-08] MEDS: LITHIUM CARBONATE 150 MG CAP PO SCH (08:41)
[2022-08-08] MEDS: APIXABAN 5 MG TAB (ELIQUIS) PO SCH (08:41)
[2022-08-08] MEDS: MULTIVITAMINS/MINERALS THERAP 1 TAB PO SCH (08:41)
[2022-08-08] MEDS: BENZTROPINE 1 MG TAB PO SCH (08:41)
[2022-08-08] MEDS: lamoTRIgine 100MG TAB PO SCH (08:41)
[2022-08-08] MEDS: CIPROFLOXACIN 0.3% OPHTH SOLN 2.5ML OS SCH ×2 (08:48→12:17)
[2022-08-08] MEDS: FERROUS GLUCONATE 324 MG TAB PO SCH (08:48)
[2022-08-08] MEDS ORDERED: DOXY-444 PO (10:40)
[2022-08-08] MEDS ORDERED: CILO0.3S OS (10:40)
[2022-08-08 12:00] VITALS: BP 125/75
[2022-08-08] MEDS ORDERED: VANCOMYCIN HCL 1,000 MG, VIAL MATE ADAPTER 1 EACH in D5W 250 ML IV SCH (12:00)
[2022-08-08 12:13] LABS: HEPATITIS B SURFACE ANTIGEN NEGATIVE (NEGATIVE)
[2022-08-08 12:25] LABS: HIV SCREEN CENTAUR SOURCE NEGATIVE (NEGATIVE)
== END 2022-08-08 14:27 | disposition home or self-care (01) | DRG 871 ==
LOC: EDBD 08:50 → M ED 08:50 → M ED INP 12:45 → ENRESERV 14:27 → M ICU 15:02
PROVIDERS: ADMIT Internal Medicine; ATTEND Family Medicine
PROC: 02HV33Z Insertion of Infusion Device into Superior Vena Cava, Percutaneous Approach (ICD-10-PCS; principal; 2022-08-07 15:00)
DX: A41.9 Sepsis, unspecified organism (principal); R65.21 Severe sepsis with septic shock; I13.0 Hypertensive heart and chronic kidney disease with heart failure and stage 1 through stage 4 chronic kidney disease, or unspecified chronic kidney disease; L03.115 Cellulitis of right lower limb; N17.9 Acute kidney failure, unspecified; E87.20 Acidosis, unspecified; E11.22 Type 2 diabetes mellitus with diabetic chronic kidney disease; F25.9 Schizoaffective disorder, unspecified; F70 Mild intellectual disabilities; N18.9 Chronic kidney disease, unspecified; K21.9 Gastro-esophageal reflux disease without esophagitis; I50.9 Heart failure, unspecified; R59.0 Localized enlarged lymph nodes; H10.9 Unspecified conjunctivitis; G40.909 Epilepsy, unspecified, not intractable, without status epilepticus; J44.9 Chronic obstructive pulmonary disease, unspecified; N40.0 Benign prostatic hyperplasia without lower urinary tract symptoms; R45.1 Restlessness and agitation; Z86.16 Personal history of COVID-19; Z88.6 Allergy status to analgesic agent; Z79.01 Long term (current) use of anticoagulants; Z86.718 Personal history of other venous thrombosis and embolism

== ENCOUNTER → 2022-08-17 | Outpatient (REF) | payer MEDICARE, MEDICAID ==
[~2022-08-17] MED LIST changes: -BENZ-52 PO; +BENZ1TAB5 PO; +CILO0.3S OS; +TRIPOIN9 TOP
[2022-08-17 17:14] LABS: BASO % 0.4 % (0.0-1.0); EOS # 0.2 10^3/uL (0.0-0.5); HEMATOCRIT 36.5 % (42.0-52.0); HEMOGLOBIN 11.6 g/dl (13.5-17.5); LYMPH # 1.9 10^3/uL (1.5-5.0); LYMPH % 24.2 % (24.0-44.0); MEAN CORPUSCULAR HEMOGLOBIN 30.2 pg (27.0-33.0); MEAN CORPUSCULAR HGB CONC 31.8 g/dl (32.0-36.5); MEAN CORPUSCULAR VOLUME 95.1 fl (80.0-96.0); MONO # 0.8 10^3/uL (0.0-0.8); MONO % 9.7 % (2.0-8.0); NEUTROPHILS % 62.7 % (36.0-66.0); PLATELET COUNT, AUTOMATED 259 10^3/uL (150-450); RED BLOOD COUNT 3.84 10^6/uL (4.30-6.10)
[2022-08-17 17:29] LABS: C REACTIVE PROTEIN QUANTITATIV < 0.40 MG/DL (<1.0)
[2022-08-17 17:30] LABS: BLOOD UREA NITROGEN 29 MG/DL (9-23); CALCIUM LEVEL 10.2 MG/DL (8.3-10.6); CARBON DIOXIDE LEVEL 31 MMOL/L (20-31); CHLORIDE LEVEL 105 MMOL/L (98-107); GLOMERULAR FILTRATION RATE 33.8 (>49); GLUCOSE, FASTING 129 MG/DL (74-106); IRON (FE) 114 UG/DL (65-175); PERCENT SATURATION 37.7 % (19.7-50.0); POTASSIUM SERUM 4.5 MMOL/L (3.5-5.1); SODIUM LEVEL 141 MMOL/L (136-145); TOTAL IRON BINDING CAPACITY 302 UG/DL (250-425)
== END ==
LOC: M SFHCADAM 13:19
PROVIDERS: ATTEND Physician Assistant
DX: L03.115 Cellulitis of right lower limb (principal); D50.9 Iron deficiency anemia, unspecified; N18.32 Chronic kidney disease, stage 3b

== ENCOUNTER 2022-11-02 12:24 | Emergency (ER) | payer MEDICARE, MEDICAID ==
[~2022-11-02] VITALS: Ht 154.9 cm; Wt 80.8 kg
[2022-11-02] MEDS ORDERED: NS 1,000 ML IV ONE (16:55)
[2022-11-02] MEDS ORDERED: VANCOMYCIN HCL 1,500 MG in IV FLUID PLACE HOLDER 1 EA IV ONE (16:55)
[2022-11-02] MEDS ORDERED: VANCOMYCIN HCL 750 MG, VIAL MATE ADAPTER 1 EACH in D5W 250 ML IV ONE ×2 (17:05→18:00)
[2022-11-02 17:25] LABS: BASO % 0.3 % (0.0-1.0); EOS # 0.3 10^3/uL (0.0-0.5); EOS % 2.6 % (0.0-3.0); HEMATOCRIT 36.9 % (42.0-52.0); HEMOGLOBIN 11.8 g/dl (13.5-17.5); MEAN CORPUSCULAR HEMOGLOBIN 30.1 pg (27.0-33.0); MEAN CORPUSCULAR VOLUME 94.1 fl (80.0-96.0); MONO # 0.9 10^3/uL (0.0-0.8); MONO % 9.3 % (2.0-8.0); NEUTROPHILS # 7.8 10^3/uL (1.5-8.5); NEUTROPHILS % 76.9 % (36.0-66.0); PLATELET COUNT, AUTOMATED 278 10^3/uL (150-450); RED BLOOD COUNT 3.92 10^6/uL (4.30-6.10); WHITE BLOOD COUNT 10.2 10^3/uL (4.0-10.0)
[2022-11-02 17:33] LABS: ERYTHROCYTE SEDIMENTATION RATE 90 mm/hr (0-20)
[2022-11-02 17:52] LABS: C REACTIVE PROTEIN QUANTITATIV 15.1 MG/DL (<1.0)
[2022-11-02 18:09] LABS: ALBUMIN 3.5 G/DL (3.2-5.2); BILIRUBIN,DIRECT 0.1 MG/DL (<0.4); BILIRUBIN,TOTAL 0.4 MG/DL (0.3-1.2); CALCIUM LEVEL 10.7 MG/DL (8.3-10.6); CREATININE FOR GFR 2.25 MG/DL (0.70-1.30); GLOMERULAR FILTRATION RATE 31.2 (>49); POTASSIUM SERUM 4.7 MMOL/L (3.5-5.1); TOTAL PROTEIN 6.7 G/DL (5.7-8.2)
[2022-11-02] MEDS ORDERED: BACT800T5 PO (20:55)
[2022-11-02 21:21] VITALS: BP 116/75
== END 2022-11-02 21:29 | disposition home or self-care (01) ==
LOC: M ED 12:24
DX: L02.31 Cutaneous abscess of buttock (principal); L03.317 Cellulitis of buttock; E11.9 Type 2 diabetes mellitus without complications; I10 Essential (primary) hypertension; E78.5 Hyperlipidemia, unspecified; F31.9 Bipolar disorder, unspecified; F41.9 Anxiety disorder, unspecified; F17.200 Nicotine dependence, unspecified, uncomplicated; F32.A Depression, unspecified; K21.9 Gastro-esophageal reflux disease without esophagitis; Z86.718 Personal history of other venous thrombosis and embolism; Z79.01 Long term (current) use of anticoagulants; Z88.6 Allergy status to analgesic agent; Z79.02 Long term (current) use of antithrombotics/antiplatelets; Z79.810 Long term (current) use of selective estrogen receptor modulators (SERMs); Z79.899 Other long term (current) drug therapy
CPT/HCPCS: 80048; 80076; 83605; 85025; 85652; 86140; 87040; 87070; 87077; 87186; 87205; 96365; 96366; 99284; J3370

== ENCOUNTER → 2022-12-11 | Outpatient (REF) | payer MEDICARE, MEDICAID ==
[~2022-12-11] MED LIST changes: +BACT800T5 PO
== END ==
LOC: M SFHCADAM 07:31
PROVIDERS: ATTEND Physician Assistant
DX: Z53.9 Procedure and treatment not carried out, unspecified reason (principal)

== ENCOUNTER 2023-01-31 13:33 | Inpatient (IN) | payer MEDICARE, MEDICAID ==
[~2023-01-31] VITALS: Ht 160 cm; Wt 86.2 kg
[~2023-01-31 13:33] MED LIST changes: +LORA1TAB23 PO; -LORA1TAB4 PO
[2023-01-31] MEDS ORDERED: NS 2,400 ML in IV 1 EA IV ONE (13:50)
[2023-01-31 14:43] LABS: BASO % 0.2 % (0.0-1.0); HEMOGLOBIN 10.9 g/dl (13.5-17.5); LYMPH # 0.4 10^3/uL (1.5-5.0); LYMPH % 2.2 % (24.0-44.0); MEAN CORPUSCULAR HEMOGLOBIN 29.6 pg (27.0-33.0); MEAN CORPUSCULAR HGB CONC 32.1 g/dl (32.0-36.5); MEAN CORPUSCULAR VOLUME 92.4 fl (80.0-96.0); MONO # 0.6 10^3/uL (0.0-0.8); MONO % 3.2 % (2.0-8.0); NEUTROPHILS % 93.2 % (36.0-66.0); PLATELET COUNT, AUTOMATED 177 10^3/uL (150-450); RED BLOOD COUNT 3.68 10^6/uL (4.30-6.10); WHITE BLOOD COUNT 18.2 10^3/uL (4.0-10.0)
[2023-01-31] MEDS ORDERED: VANCOMYCIN HCL 1,500 MG in NS 250 ML IV ONE (14:45)
[2023-01-31 14:56] LABS: INR 1.44; PROTHROMBIN TIME 17.8 SECONDS (12.5-14.5)
[2023-01-31] MEDS ORDERED: VANCOMYCIN HCL 750 MG, VIAL MATE ADAPTER 1 EACH in D5W 250 ML IV ONE ×2 (15:00→16:00)
[2023-01-31 15:16] LABS: ALBUMIN 3.4 G/DL (3.2-5.2); BILIRUBIN,DIRECT 0.3 MG/DL (<0.4); C REACTIVE PROTEIN QUANTITATIV 11.8 MG/DL (<1.0); CREATININE FOR GFR 3.84 MG/DL (0.70-1.30); GLOMERULAR FILTRATION RATE 16.8 (>49); POTASSIUM SERUM 4.9 MMOL/L (3.5-5.1); TOTAL PROTEIN 5.6 G/DL (5.7-8.2)
[2023-01-31 15:21] LABS: RSV AMPLIFICATION NEGATIVE (NEGATIVE)
[2023-01-31] MEDS ORDERED: MOM 30ML SUSPENSION UDC PO PRN (17:50)
[2023-01-31] MEDS ORDERED: MAALOX 30 ML SUSP *UDC PO PRN (17:50)
[2023-01-31] MEDS ORDERED: GLUCOSE 4GM CHEW TABLET PO PRN (17:50)
[2023-01-31] MEDS ORDERED: DEXTROSE 50% 50ML SYRINGE IV PRN (17:50)
[2023-01-31] MEDS ORDERED: GLUCAGON INJ 1MG VIAL SC PRN (17:50)
[2023-01-31 17:57] LABS: LITHIUM LEVEL 0.8 MMOL/L (0.60-1.20)
[2023-01-31] MEDS ORDERED: PIPERACILLIN/TAZOBACTAM SOD 3.375 GM in D5W MINI-BAG PLUS 50 ML IV ONE (18:30)
[2023-01-31] MEDS: ACETAMINOPHEN TAB 650MG DOSE (2X325MG) PO PRN (18:36)
[2023-01-31] MEDS: NS 1,000 ML IV SCH (18:37)
[2023-01-31] MEDS ORDERED: HOME MED LIST COMPLETE! XX SCH (19:20)
[2023-01-31 20:30] LABS: CREATININE,RANDOM URINE 56.7 MG/DL
[2023-01-31] MEDS ORDERED: NS 1,000 ML IV ONE ×2 (20:55→22:05)
[2023-01-31] MEDS: DOCUSATE SODIUM 100MG CAPSULE PO SCH (21:00)
[2023-01-31] MEDS: INSULIN LISPRO (NovoLOG) PER UNIT SC SCH (21:00)
[2023-01-31 21:03] LABS: ERYTHROCYTE SEDIMENTATION RATE 29 mm/hr (0-20)
[2023-01-31 21:05] VITALS: BP 84/51; TEMP 101.3; O2SAT 95
[2023-01-31 21:47] VITALS: BP 78/48
[2023-01-31] MEDS ORDERED: ACETAMINOPHEN 325 MG TAB PO ONE (22:05)
[2023-01-31 23:20] VITALS: BP 83/58; TEMP 100; O2SAT 94
[2023-02-01] VITALS (7 sets, daily range): BP systolic 90–118; BP diastolic 53–64; TEMP 99.8–102.3; O2SAT 96–99
[2023-02-01] MEDS: NS 1,000 ML IV SCH ×3 (00:12→15:05)
[2023-02-01] MEDS: PIPERACILLIN/TAZOBACTAM SOD 2.25 GM in D5W MINI-BAG PLUS 50 ML IV SCH ×5 (00:12→23:39)
[2023-02-01] MEDS: ACETAMINOPHEN TAB 650MG DOSE (2X325MG) PO PRN ×3 (03:40→17:17)
[2023-02-01 06:33] LABS: BASO % 0.2 % (0.0-1.0); HEMATOCRIT 28.3 % (42.0-52.0); HEMOGLOBIN 9.2 g/dl (13.5-17.5); LYMPH # 0.5 10^3/uL (1.5-5.0); LYMPH % 5.2 % (24.0-44.0); MEAN CORPUSCULAR HEMOGLOBIN 30.2 pg (27.0-33.0); MEAN CORPUSCULAR HGB CONC 32.5 g/dl (32.0-36.5); MEAN CORPUSCULAR VOLUME 92.8 fl (80.0-96.0); MONO # 0.3 10^3/uL (0.0-0.8); MONO % 2.8 % (2.0-8.0); NEUTROPHILS # 8.1 10^3/uL (1.5-8.5); NEUTROPHILS % 90.6 % (36.0-66.0); PLATELET COUNT, AUTOMATED 131 10^3/uL (150-450); RED BLOOD COUNT 3.05 10^6/uL (4.30-6.10); WHITE BLOOD COUNT 8.9 10^3/uL (4.0-10.0)
[2023-02-01 07:00] LABS: C REACTIVE PROTEIN QUANTITATIV 17.6 MG/DL (<1.0)
[2023-02-01 07:02] LABS: CALCIUM LEVEL 8.7 MG/DL (8.3-10.6); CREATININE FOR GFR 3.37 MG/DL (0.70-1.30); GLOMERULAR FILTRATION RATE 19.6 (>49); POTASSIUM SERUM 4.4 MMOL/L (3.5-5.1)
[2023-02-01] MEDS: INSULIN LISPRO (NovoLOG) PER UNIT SC SCH ×4 (07:30→21:00)
[2023-02-01] MEDS: VANCOMYCIN HCL 1,000 MG, VIAL MATE ADAPTER 1 EACH in D5W 250 ML IV SCH (07:34)
[2023-02-01] MEDS: DOCUSATE SODIUM 100MG CAPSULE PO SCH ×2 (08:13→21:00)
[2023-02-01] MEDS: FERROUS GLUCONATE 324 MG TAB PO SCH (11:13)
[2023-02-01] MEDS: OLANZapine 5 MG TAB PO SCH ×2 (11:13→15:04)
[2023-02-01] MEDS: SUCRALFATE 1 GM TAB PO SCH ×3 (11:13→20:53)
[2023-02-01] MEDS: BENZTROPINE 1 MG TAB PO SCH ×2 (11:14→20:54)
[2023-02-01] MEDS: OMEPRAZOLE 20MG CAP PO SCH ×2 (11:14→20:54)
[2023-02-01] MEDS: lamoTRIgine 100MG TAB PO SCH ×2 (11:15→20:54)
[2023-02-01] MEDS: APIXABAN 5 MG TAB (ELIQUIS) PO SCH ×2 (11:15→20:54)
[2023-02-01] MEDS: LITHIUM CARBONATE 150 MG CAP PO SCH ×2 (11:15→20:54)
[2023-02-01] MEDS: NEOSPORIN TOP OINT 15GM TOP SCH ×2 (11:15→20:55)
[2023-02-01] MEDS: TIOTROPIUM INHALER/CAPSULE (SPIRIVA) INH SCH (12:06)
[2023-02-01] MEDS: MULTIVITAMINS/MINERALS THERAP 1 TAB PO SCH (20:53)
[2023-02-01] MEDS: ATORVASTATIN 20 MG TAB PO SCH (20:53)
[2023-02-01] MEDS: FINASTERIDE 5MG TAB PO SCH (20:54)
[2023-02-02] VITALS (16 sets, daily range): BP systolic 87–133; BP diastolic 51–82; TEMP 97.9–99.5; O2SAT 93–100
[2023-02-02] MEDS: NS 1,000 ML IV SCH (03:54)
[2023-02-02] MEDS: PIPERACILLIN/TAZOBACTAM SOD 2.25 GM in D5W MINI-BAG PLUS 50 ML IV SCH ×2 (06:04→11:51)
[2023-02-02] MEDS: OLANZapine 5 MG TAB PO SCH ×3 (06:10→16:07)
[2023-02-02 07:07] LABS: BASO % 0.2 % (0.0-1.0); EOS # 0.2 10^3/uL (0.0-0.5); EOS % 2.3 % (0.0-3.0); HEMATOCRIT 31.4 % (42.0-52.0); LYMPH # 0.8 10^3/uL (1.5-5.0); LYMPH % 9.4 % (24.0-44.0); MEAN CORPUSCULAR HEMOGLOBIN 29.8 pg (27.0-33.0); MEAN CORPUSCULAR HGB CONC 31.8 g/dl (32.0-36.5); MEAN CORPUSCULAR VOLUME 93.5 fl (80.0-96.0); MONO # 0.7 10^3/uL (0.0-0.8); MONO % 8.3 % (2.0-8.0); NEUTROPHILS # 6.6 10^3/uL (1.5-8.5); NEUTROPHILS % 79.2 % (36.0-66.0); PLATELET COUNT, AUTOMATED 130 10^3/uL (150-450); RED BLOOD COUNT 3.36 10^6/uL (4.30-6.10); WHITE BLOOD COUNT 8.3 10^3/uL (4.0-10.0)
[2023-02-02 07:24] LABS: VANCOMYCIN LEVEL TROUGH 15.4 UG/ML (10.0-20.0)
[2023-02-02 07:25] LABS: CALCIUM LEVEL 8.9 MG/DL (8.3-10.6); CREATININE FOR GFR 2.69 MG/DL (0.70-1.30); GLOMERULAR FILTRATION RATE 25.4 (>49); POTASSIUM SERUM 4.5 MMOL/L (3.5-5.1)
[2023-02-02 07:26] LABS: C REACTIVE PROTEIN QUANTITATIV 15.2 MG/DL (<1.0)
[2023-02-02] MEDS: BENZTROPINE 1 MG TAB PO SCH ×2 (08:07→21:38)
[2023-02-02] MEDS: LITHIUM CARBONATE 150 MG CAP PO SCH ×2 (08:08→21:38)
[2023-02-02] MEDS: DOCUSATE SODIUM 100MG CAPSULE PO SCH ×2 (08:08→21:39)
[2023-02-02] MEDS: SUCRALFATE 1 GM TAB PO SCH ×4 (08:08→21:39)
[2023-02-02] MEDS: INSULIN LISPRO (NovoLOG) PER UNIT SC SCH ×4 (08:08→20:57)
[2023-02-02] MEDS: APIXABAN 5 MG TAB (ELIQUIS) PO SCH ×2 (08:08→21:39)
[2023-02-02] MEDS: lamoTRIgine 100MG TAB PO SCH ×2 (08:08→21:38)
[2023-02-02] MEDS: OMEPRAZOLE 20MG CAP PO SCH ×2 (08:08→21:39)
[2023-02-02] MEDS: FERROUS GLUCONATE 324 MG TAB PO SCH (08:09)
[2023-02-02] MEDS: NEOSPORIN TOP OINT 15GM TOP SCH ×2 (08:09→21:00)
[2023-02-02] MEDS: VANCOMYCIN HCL 1,000 MG, VIAL MATE ADAPTER 1 EACH in D5W 250 ML IV SCH (08:09)
[2023-02-02] MEDS: TIOTROPIUM INHALER/CAPSULE (SPIRIVA) INH SCH (08:14)
[2023-02-02] MEDS: ACETAMINOPHEN TAB 650MG DOSE (2X325MG) PO PRN (12:32)
[2023-02-02] MEDS: DOXYCYCLINE HYCLATE 100MG TABLET PO SCH (21:38)
[2023-02-02] MEDS: FINASTERIDE 5MG TAB PO SCH (21:38)
[2023-02-02] MEDS: ATORVASTATIN 20 MG TAB PO SCH (21:39)
[2023-02-02] MEDS: MULTIVITAMINS/MINERALS THERAP 1 TAB PO SCH (21:39)
[2023-02-02] MEDS: AUGMENTIN 500MG TAB PO SCH (21:39)
[2023-02-03 06:00] VITALS: BP 123/73; TEMP 97.7; O2SAT 95
[2023-02-03] MEDS: TIOTROPIUM INHALER/CAPSULE (SPIRIVA) INH SCH (07:46)
[2023-02-03] MEDS: lamoTRIgine 100MG TAB PO SCH (07:53)
[2023-02-03] MEDS: INSULIN LISPRO (NovoLOG) PER UNIT SC SCH (07:53)
[2023-02-03] MEDS: AUGMENTIN 500MG TAB PO SCH (07:53)
[2023-02-03] MEDS: BENZTROPINE 1 MG TAB PO SCH (07:53)
[2023-02-03] MEDS: APIXABAN 5 MG TAB (ELIQUIS) PO SCH (07:54)
[2023-02-03] MEDS: FERROUS GLUCONATE 324 MG TAB PO SCH (07:54)
[2023-02-03] MEDS: DOXYCYCLINE HYCLATE 100MG TABLET PO SCH (07:54)
[2023-02-03] MEDS: OLANZapine 5 MG TAB PO SCH (07:54)
[2023-02-03] MEDS: DOCUSATE SODIUM 100MG CAPSULE PO SCH (07:54)
[2023-02-03] MEDS: OMEPRAZOLE 20MG CAP PO SCH (07:54)
[2023-02-03] MEDS: SUCRALFATE 1 GM TAB PO SCH (07:54)
[2023-02-03] MEDS: LITHIUM CARBONATE 150 MG CAP PO SCH (07:54)
[2023-02-03] MEDS: NEOSPORIN TOP OINT 15GM TOP SCH (07:55)
[2023-02-03] MEDS ORDERED: AMOX500T2 PO (09:00)
[2023-02-03] MEDS ORDERED: DOXY100T PO (09:00)
== END 2023-02-03 10:03 | disposition home or self-care (01) | DRG 872 ==
LOC: M ED 13:33 → M ED INP 17:47 → M ICU 20:53 → M MSPAV 02-02 17:53
PROVIDERS: ADMIT Internal Medicine; ATTEND Internal Medicine
DX: A41.9 Sepsis, unspecified organism (principal); L03.115 Cellulitis of right lower limb; N17.9 Acute kidney failure, unspecified; E87.20 Acidosis, unspecified; F79 Unspecified intellectual disabilities; F25.9 Schizoaffective disorder, unspecified; I12.9 Hypertensive chronic kidney disease with stage 1 through stage 4 chronic kidney disease, or unspecified chronic kidney disease; E11.22 Type 2 diabetes mellitus with diabetic chronic kidney disease; N18.30 Chronic kidney disease, stage 3 unspecified; K21.9 Gastro-esophageal reflux disease without esophagitis; N40.0 Benign prostatic hyperplasia without lower urinary tract symptoms; E78.5 Hyperlipidemia, unspecified; G40.909 Epilepsy, unspecified, not intractable, without status epilepticus; D50.9 Iron deficiency anemia, unspecified; Z79.2 Long term (current) use of antibiotics; Z79.01 Long term (current) use of anticoagulants; Z79.899 Other long term (current) drug therapy; Z88.6 Allergy status to analgesic agent; Z20.822 Contact with and (suspected) exposure to COVID-19; Z86.718 Personal history of other venous thrombosis and embolism; Z86.16 Personal history of COVID-19

== ENCOUNTER → 2023-03-15 | Outpatient (REF) | payer MEDICARE, MEDICAID ==
[~2023-03-15] MED LIST changes: +AMOX500T2 PO
[2023-03-15 14:05] LABS: BASO % 0.8 % (0.0-1.0); EOS # 0.2 10^3/uL (0.0-0.5); EOS % 3.9 % (0.0-3.0); HEMATOCRIT 37.4 % (42.0-52.0); HEMOGLOBIN 11.9 g/dl (13.5-17.5); LYMPH # 1.6 10^3/uL (1.5-5.0); LYMPH % 30.9 % (24.0-44.0); MEAN CORPUSCULAR HEMOGLOBIN 29.9 pg (27.0-33.0); MEAN CORPUSCULAR HGB CONC 31.8 g/dl (32.0-36.5); MONO # 0.4 10^3/uL (0.0-0.8); MONO % 7.8 % (2.0-8.0); NEUTROPHILS # 2.9 10^3/uL (1.5-8.5); NEUTROPHILS % 56.2 % (36.0-66.0); PLATELET COUNT, AUTOMATED 206 10^3/uL (150-450); RED BLOOD COUNT 3.98 10^6/uL (4.30-6.10); WHITE BLOOD COUNT 5.1 10^3/uL (4.0-10.0)
[2023-03-15 14:29] LABS: ALBUMIN 4.1 G/DL (3.2-5.2); BILIRUBIN,TOTAL 0.5 MG/DL (0.3-1.2); CALCIUM LEVEL 10.2 MG/DL (8.3-10.6); CALCIUM LEVEL 10.4 MG/DL (8.3-10.6); CREATININE FOR GFR 2.07 MG/DL (0.70-1.30); GLOMERULAR FILTRATION RATE 34.3 (>49); HDL CHOLESTEROL 33.7 MG/DL (>40); LDL CHOLESTEROL 65.1 MG/DL (<100); NON-HDL-C 101.3 MG/DL; POTASSIUM SERUM 4.2 MMOL/L (3.5-5.1); POTASSIUM SERUM 4.4 MMOL/L (3.5-5.1); TOTAL PROTEIN 6.6 G/DL (5.7-8.2); TOTAL PROTEIN 6.8 G/DL (5.7-8.2)
[2023-03-15 14:31] LABS: LITHIUM LEVEL 0.76 MMOL/L (1.0-1.20); PROLACTIN 59.06 NG/ML (2.1-17.7)
[2023-03-15 14:35] LABS: HEMOGLOBIN A1c 5.8 % (4.0-6.0)
== END ==
LOC: M SFHCADAM 10:32
PROVIDERS: ATTEND Physician Assistant
DX: E11.22 Type 2 diabetes mellitus with diabetic chronic kidney disease (principal); I82.511 Chronic embolism and thrombosis of right femoral vein; E78.2 Mixed hyperlipidemia; Z79.899 Other long term (current) drug therapy

== ENCOUNTER → 2023-06-25 | Outpatient (REF) | payer MEDICARE, MEDICAID ==
[~2023-06-25] MED LIST changes: -CEFD300C41 PO; +CEFD300C42 PO
== END ==
LOC: M SFHCADAM 16:59
PROVIDERS: ATTEND Physician Assistant
DX: Z53.9 Procedure and treatment not carried out, unspecified reason (principal); R74.8 Abnormal levels of other serum enzymes; R44.3 Hallucinations, unspecified

== ENCOUNTER → 2023-07-04 | Outpatient (CLI) | payer MEDICARE, MEDICAID ==
[2023-07-04 11:43] LABS: INR 1.19; PROTHROMBIN TIME 14.7 SECONDS (12.5-14.5)
[2023-07-04 11:46] LABS: PARTIAL THROMBOPLASTIN TIME 55.5 SECONDS (24.8-34.2)
[2023-07-04 11:59] LABS: ALBUMIN 3.9 G/DL (3.2-5.2); ALKALINE PHOSPHATASE 154 U/L (46-116); ALT/SGPT 42 U/L (7.0-40); AST/SGOT 21 U/L (<34); BILIRUBIN,DIRECT 0.2 MG/DL (<0.4); BILIRUBIN,TOTAL 0.8 MG/DL (0.3-1.2); TOTAL PROTEIN 6.7 G/DL (5.7-8.2)
[2023-07-04 12:01] LABS: HEPATITIS B SURFACE ANTIBODY POSITIVE (POSITIVE)
[2023-07-04 12:33] LABS: HEPATITIS C VIRUS ABY INDEX 0.04 INDEX (<0.8)
[2023-07-05 23:07] LABS: ANA (HEP2) Negative (.); ANTI-MITOCHONDRIAL ANTIBODY <20.0 Units (0.0-20.0); HEPATITIS B CORE ANTIBODY IGG Positive (Negative)
== END ==
LOC: M LAB 10:21
PROVIDERS: ATTEND Physician Assistant
DX: R74.8 Abnormal levels of other serum enzymes (principal); R44.3 Hallucinations, unspecified; Z79.01 Long term (current) use of anticoagulants

== ENCOUNTER → 2023-07-10 | Outpatient (CLI) | payer MEDICARE, MEDICAID | LOC: M WHC 07-04 11:30 | PROVIDERS: ATTEND Physician Assistant | DX: R74.8 Abnormal levels of other serum enzymes (principal); R44.3 Hallucinations, unspecified; K76.0 Fatty (change of) liver, not elsewhere classified ==

== ENCOUNTER 2023-09-30 13:30 | Emergency (ER) | payer MEDICARE, MEDICAID ==
[~2023-09-30] VITALS: Ht 170.2 cm; Wt 78.2 kg
[~2023-09-30 13:30] MED LIST changes: +CEFD1CAP9 PO; -CEFD300C42 PO
[2023-09-30 17:16] LABS: BASO % 0.6 % (0.0-1.0); EOS # 0.3 10^3/uL (0.0-0.5); EOS % 4.9 % (0.0-3.0); HEMATOCRIT 37.1 % (42.0-52.0); HEMOGLOBIN 12.1 g/dl (13.5-17.5); LYMPH # 1.4 10^3/uL (1.5-5.0); LYMPH % 27.4 % (24.0-44.0); MEAN CORPUSCULAR HEMOGLOBIN 30.9 pg (27.0-33.0); MEAN CORPUSCULAR HGB CONC 32.6 g/dl (32.0-36.5); MEAN CORPUSCULAR VOLUME 94.6 fl (80.0-96.0); MONO # 0.5 10^3/uL (0.0-0.8); MONO % 9.4 % (2.0-8.0); NEUTROPHILS # 2.9 10^3/uL (1.5-8.5); NEUTROPHILS % 57.3 % (36.0-66.0); PLATELET COUNT, AUTOMATED 211 10^3/uL (150-450); RED BLOOD COUNT 3.92 10^6/uL (4.30-6.10); WHITE BLOOD COUNT 5.1 10^3/uL (4.0-10.0)
[2023-09-30 17:29] LABS: INR 1.06; PROTHROMBIN TIME 13.5 SECONDS (12.5-14.5)
[2023-09-30 17:30] LABS: PARTIAL THROMBOPLASTIN TIME 47.3 SECONDS (24.8-34.2)
[2023-09-30 17:35] LABS: C REACTIVE PROTEIN QUANTITATIV < 0.40 MG/DL (<1.0); CK-MB VALUE MASS < 1.0 NG/ML (<3.6)
[2023-09-30 17:36] LABS: AMYLASE 137 U/L (30-118); CPK CREATINE PHOSPHOKINASE 31 U/L (46-171); MB/CK RELATIVE INDEX 3.22 (< OR =4)
[2023-09-30 17:37] LABS: ALBUMIN 3.7 G/DL (3.2-5.2); ALKALINE PHOSPHATASE 153 U/L (46-116); ALT/SGPT 44 U/L (7.0-40); AST/SGOT 15 U/L (<34); BILIRUBIN,DIRECT < 0.1 MG/DL (<0.4); BILIRUBIN,TOTAL 0.3 MG/DL (0.3-1.2); BLOOD UREA NITROGEN 39 MG/DL (9-23); CALCIUM LEVEL 9.6 MG/DL (8.3-10.6); CARBON DIOXIDE LEVEL 29 MMOL/L (20-31); CHLORIDE LEVEL 111 MMOL/L (98-107); GLOMERULAR FILTRATION RATE 35.7 (>49); GLUCOSE, FASTING 128 MG/DL (74-106); POTASSIUM SERUM 4.8 MMOL/L (3.5-5.1); SODIUM LEVEL 144 MMOL/L (136-145); TOTAL PROTEIN 6.4 G/DL (5.7-8.2)
[2023-09-30 17:38] LABS: LITHIUM LEVEL 0.53 MMOL/L (1.0-1.20)
[2023-09-30 17:39] LABS: THYROID STIMULATING HORMONE 1.066 uIU/ML (0.55-4.78)
[2023-09-30 17:43] LABS: PROCALCITONIN 0.06 ng/ml
[2023-09-30 18:57] VITALS: BP 125/74; TEMP 98.1; O2SAT 99
[2023-09-30 18:59] VITALS: O2SAT 95
== END 2023-09-30 18:59 | disposition home or self-care (01) ==
LOC: M ED 13:30
DX: R53.1 Weakness (principal); W19.XXXA Unspecified fall, initial encounter; I44.0 Atrioventricular block, first degree; I45.10 Unspecified right bundle-branch block; I44.4 Left anterior fascicular block; E11.9 Type 2 diabetes mellitus without complications; I10 Essential (primary) hypertension; K21.9 Gastro-esophageal reflux disease without esophagitis; N18.30 Chronic kidney disease, stage 3 unspecified; F84.0 Autistic disorder; Z86.718 Personal history of other venous thrombosis and embolism; Z88.6 Allergy status to analgesic agent; Z79.01 Long term (current) use of anticoagulants; Z79.2 Long term (current) use of antibiotics; Z79.02 Long term (current) use of antithrombotics/antiplatelets; Z79.810 Long term (current) use of selective estrogen receptor modulators (SERMs); Z79.899 Other long term (current) drug therapy

== ENCOUNTER → 2023-10-08 | Outpatient (REF) | payer MEDICARE, MEDICAID ==
[2023-10-08 14:12] LABS: BASO % 0.5 % (0.0-1.0); EOS # 0.2 10^3/uL (0.0-0.5); EOS % 4.2 % (0.0-3.0); HEMATOCRIT 41.7 % (42.0-52.0); LYMPH # 1.3 10^3/uL (1.5-5.0); LYMPH % 23.1 % (24.0-44.0); MEAN CORPUSCULAR HGB CONC 31.2 g/dl (32.0-36.5); MEAN CORPUSCULAR VOLUME 96.1 fl (80.0-96.0); MONO # 0.5 10^3/uL (0.0-0.8); MONO % 8.6 % (2.0-8.0); NEUTROPHILS # 3.6 10^3/uL (1.5-8.5); NEUTROPHILS % 62.7 % (36.0-66.0); PLATELET COUNT, AUTOMATED 211 10^3/uL (150-450); RED BLOOD COUNT 4.34 10^6/uL (4.30-6.10); WHITE BLOOD COUNT 5.7 10^3/uL (4.0-10.0)
[2023-10-08 14:39] LABS: PSA SCREENING 0.23 NG/ML (< 4.00)
[2023-10-08 14:41] LABS: ALBUMIN 4.1 G/DL (3.2-5.2); BILIRUBIN,TOTAL 0.4 MG/DL (0.3-1.2); CALCIUM LEVEL 10.1 MG/DL (8.3-10.6); CREATININE FOR GFR 2.24 MG/DL (0.70-1.30); GLOMERULAR FILTRATION RATE 31.3 (>49); PERCENT SATURATION 21.4 % (19.7-50.0); POTASSIUM SERUM 4.8 MMOL/L (3.5-5.1); TOTAL PROTEIN 6.9 G/DL (5.7-8.2)
[2023-10-08 14:43] LABS: FERRITIN 113.3 NG/ML (10.5-307.3); FREE T4 1.08 NG/DL (0.89-1.76); THYROID STIMULATING HORMONE 0.779 uIU/ML (0.55-4.78)
[2023-10-08 14:48] LABS: HEMOGLOBIN A1c 5.7 % (4.0-6.0)
[2023-10-08 15:08] LABS: HIV 1&2 SCREEN NEGATIVE (NEGATIVE)
[2023-10-09 23:10] LABS: HBV HBV DNA not detected IU/mL (.)
== END ==
LOC: M SFHCADAM 09:46
PROVIDERS: ATTEND Physician Assistant
DX: R74.8 Abnormal levels of other serum enzymes (principal); Z86.19 Personal history of other infectious and parasitic diseases; Z13.1 Encounter for screening for diabetes mellitus; Z12.5 Encounter for screening for malignant neoplasm of prostate; L29.9 Pruritus, unspecified; Z79.899 Other long term (current) drug therapy; Z86.2 Personal history of diseases of the blood and blood-forming organs and certain disorders involving the immune mechanism
CPT/HCPCS: 80053; 82306; 82397; 82607; 82728; 83036; 83520; 83550; 83883; 84439; 84443; 84590; 84630; 85025; 87389; 87517; G0103

== ENCOUNTER → 2023-10-23 | Outpatient (CLI) | payer MEDICARE, MEDICAID | LOC: M RAD 10:41 | PROVIDERS: ATTEND Physician Assistant | DX: Z87.891 Personal history of nicotine dependence (principal) ==

== ENCOUNTER → 2023-12-19 | Outpatient (CLI) | payer MEDICARE, MEDICAID ==
[~2023-12-19] MED LIST changes: +DOXY-440 PO; -DOXY-444 PO
== END ==
LOC: M RAD 13:08
PROVIDERS: ATTEND Physician Assistant
DX: R91.1 Solitary pulmonary nodule (principal); F17.218 Nicotine dependence, cigarettes, with other nicotine-induced disorders

== ENCOUNTER 2024-03-25 12:44 | Inpatient (IN) | payer MEDICARE, MEDICAID ==
[~2024-03-25] VITALS: Ht 162.6 cm; Wt 85.2 kg
[~2024-03-25 12:44] MED LIST changes: -AZEL0.055; +AZEL1SPR4
[2024-03-25] MEDS: cefTRIAXone SOD 2 GM in D5W MINI-BAG PLUS 50 ML IV ONE (13:21)
[2024-03-25] MEDS: NS 2,520 ML in IV 1 EA IV ONE (13:22)
[2024-03-25 13:29] LABS: VENOUS BASE EXCESS 0.1 (-2.0-2.0); VENOUS HCO3 25.9 MMOL/L (23.0-27.0); VENOUS O2 SATURATION 78.4 % (60.0-80.0); VENOUS PARTIAL PRESSURE CO2 46.7 mmHg (38.0-50.0); VENOUS PARTIAL PRESSURE O2 39.9 mmHg (30.0-50.0); VENOUS PH 7.362 UNITS (7.330-7.430); VENOUS STANDARD HCO3 24.2 MMOL/L; VENOUS TOTAL CO2 27.3 MMOL/L (24.0-28.0)
[2024-03-25 13:37] LABS: BASO % 0.2 % (0.0-1.0); HEMATOCRIT 38.5 % (42.0-52.0); HEMOGLOBIN 12.3 g/dl (13.5-17.5); LYMPH # 0.6 10^3/uL (1.5-5.0); LYMPH % 4.6 % (24.0-44.0); MEAN CORPUSCULAR HGB CONC 31.9 g/dl (32.0-36.5); MONO # 0.8 10^3/uL (0.0-0.8); MONO % 5.6 % (2.0-8.0); NEUTROPHILS # 12.1 10^3/uL (1.5-8.5); NEUTROPHILS % 87.7 % (36.0-66.0); PLATELET COUNT, AUTOMATED 169 10^3/uL (150-450); RED BLOOD COUNT 3.97 10^6/uL (4.30-6.10); WHITE BLOOD COUNT 13.8 10^3/uL (4.0-10.0)
[2024-03-25] MEDS ORDERED: DEBR6.5S4 AU (13:45)
[2024-03-25] MEDS ORDERED: HALO1TAB19 PO (13:45)
[2024-03-25] MEDS ORDERED: OLAN7.5T8 PO (13:45)
[2024-03-25] MEDS ORDERED: TRIA1CRE5 TOP (13:50)
[2024-03-25] MEDS ORDERED: THERTAB52 PO (13:50)
[2024-03-25] MEDS ORDERED: OLOP2.5D7 OD (13:56)
[2024-03-25 13:57] LABS: INR 1.33; PROTHROMBIN TIME 16.1 SECONDS (12.5-14.5)
[2024-03-25 14:00] LABS: C REACTIVE PROTEIN QUANTITATIV 8.2 MG/DL (<1.0)
[2024-03-25] MEDS ORDERED: HOME MED LIST COMPLETE! XX SCH (14:00)
[2024-03-25 14:02] LABS: ALBUMIN 3.7 G/DL (3.2-5.2); BILIRUBIN,DIRECT 0.2 MG/DL (<0.4); BILIRUBIN,TOTAL 0.9 MG/DL (0.3-1.2); CALCIUM LEVEL 9.8 MG/DL (8.3-10.6); CREATININE FOR GFR 2.92 MG/DL (0.70-1.30); POTASSIUM SERUM 5.4 MMOL/L (3.5-5.1); TOTAL PROTEIN 6.5 G/DL (5.7-8.2)
[2024-03-25 14:13] LABS: PROCALCITONIN 19.99 ng/ml
[2024-03-25] MEDS: ACETAMINOPHEN 650MG SUPP PR ONE (14:20)
[2024-03-25] MEDS ORDERED: VANCOMYCIN HCL 750 MG, VIAL MATE ADAPTER 1 EACH in D5W 250 ML IV SCH (16:45)
[2024-03-25] MEDS ORDERED: MOM 30ML SUSPENSION UDC PO PRN (16:45)
[2024-03-25] MEDS ORDERED: HEPARIN SOD (PORCINE) 5000UNITS/ML 1ML VIAL/SYRINGE SC SCH (16:45)
[2024-03-25] MEDS: ACETAMINOPHEN 325 MG TAB PO ONE (17:10)
[2024-03-25] MEDS: ACETAMINOPHEN TAB 650MG DOSE (2X325MG) PO PRN (17:16)
[2024-03-25] MEDS ORDERED: VANCOMYCIN INTERMITTENT/PULSE DOSING BY CLINICAL PHARMACIST PER DOSING PROTOCOL XX SCH (17:55)
[2024-03-25] MEDS ORDERED: DEXTROSE 50% 50ML SYRINGE IV PRN (18:10)
[2024-03-25] MEDS ORDERED: GLUCAGON INJ 1MG VIAL SC PRN (18:10)
[2024-03-25] MEDS ORDERED: GLUCOSE 4 GM CHEW PO PRN (18:10)
[2024-03-25] MEDS: LR 1,000 ML IV ONE ×2 (18:35→23:58)
[2024-03-25] MEDS ORDERED: NOREPINEPHRINE 4MG IN D5 250ML 4 MG in IV 1 EA IV SCH (18:35)
[2024-03-25] MEDS: BENZTROPINE 1 MG TAB PO SCH (21:00)
[2024-03-25] MEDS: VANCOMYCIN HCL 750 MG, VIAL MATE ADAPTER 1 EACH in D5W 250 ML IV ONE (21:00)
[2024-03-25] MEDS: LITHIUM CARBONATE 150 MG CAP PO SCH (21:00)
[2024-03-25] MEDS: INSULIN LISPRO (NovoLOG) PER UNIT SC SCH (21:00)
[2024-03-25] MEDS: CEFEPIME HCL 1 GM in D5W MINI-BAG PLUS 50 ML IV SCH (21:30)
[2024-03-25] MEDS: PATIROMER SORBITEX CALCIUM 8.4 GM POWDER PACKET (VELTASSA) PO ONE (21:30)
[2024-03-25] MEDS: lamoTRIgine 100MG TAB PO SCH (21:31)
[2024-03-25] MEDS: FINASTERIDE 5MG TAB PO SCH (21:31)
[2024-03-25] MEDS: ATORVASTATIN 20 MG TAB PO SCH (21:31)
[2024-03-25] MEDS: DOCUSATE SODIUM 100MG CAPSULE PO SCH (21:32)
[2024-03-25] MEDS: OMEPRAZOLE 20MG CAP PO SCH (21:32)
[2024-03-25] MEDS: APIXABAN 5 MG TAB (ELIQUIS) PO SCH (21:32)
[2024-03-25] MEDS: OLANZapine 5 MG TAB PO SCH (21:32)
[2024-03-25] MEDS: VANCOMYCIN HCL 1,000 MG, VIAL MATE ADAPTER 1 EACH in D5W 250 ML IV ONE (23:18)
[2024-03-26] VITALS (19 sets, daily range): BP systolic 85–108; BP diastolic 52–72; TEMP 98.4–102.9; O2SAT 92–98
[2024-03-26] MEDS: ACETAMINOPHEN 325 MG TAB PO ONE (00:22)
[2024-03-26] MEDS: OLANZapine 2.5MG TABLET PO SCH (06:17)
[2024-03-26] MEDS: INSULIN LISPRO (NovoLOG) PER UNIT SC SCH (08:01)
[2024-03-26] MEDS: MULTIVITAMINS/MINERALS THERAP 1 TAB PO SCH (08:01)
[2024-03-26] MEDS: OLOPATADINE 0.1% OPHTH SOL 5ML(PATANOL) OD SCH (08:08)
[2024-03-26] MEDS: LR 1,000 ML IV SCH (08:08)
[2024-03-26 08:12] LABS: HEMATOCRIT 29.1 % (42.0-52.0); HEMOGLOBIN 9.3 g/dl (13.5-17.5); MEAN CORPUSCULAR HEMOGLOBIN 31.1 pg (27.0-33.0); MEAN CORPUSCULAR VOLUME 97.3 fl (80.0-96.0); PLATELET COUNT, AUTOMATED 126 10^3/uL (150-450); RED BLOOD COUNT 2.99 10^6/uL (4.30-6.10); WHITE BLOOD COUNT 8.1 10^3/uL (4.0-10.0)
[2024-03-26 08:44] LABS: VANCOMYCIN RANDOM 9.7 UG/ML
[2024-03-26 08:48] LABS: ALBUMIN 2.5 G/DL (3.2-5.2); BILIRUBIN,TOTAL 0.4 MG/DL (0.3-1.2); CALCIUM LEVEL 8.6 MG/DL (8.3-10.6); CREATININE FOR GFR 2.64 MG/DL (0.70-1.30); GLOMERULAR FILTRATION RATE 25.8 (>49); POTASSIUM SERUM 4.1 MMOL/L (3.5-5.1); TOTAL PROTEIN 4.9 G/DL (5.7-8.2)
[2024-03-26 08:56] LABS: ATYPICAL LYMPH 2 % (0-5); LYMPHOCYTES 5 % (16-44); MONOCYTES 2 % (0-5); NEUTROPHILS 74 % (28-66)
[2024-03-26 09:04] LABS: PLATELET ESTIMATE NORMAL (NORMAL)
[2024-03-26] MEDS: VANCOMYCIN HCL 1,000 MG, VIAL MATE ADAPTER 1 EACH in D5W 250 ML IV ONE (09:51)
[2024-03-26 15:10] LABS: ERYTHROCYTE SEDIMENTATION RATE 15 mm/hr (0-20)
[2024-03-26 15:29] LABS: APPEARANCE, URINE CLEAR (CLEAR); BACTERIA, URINE AUTO NEGATIVE (NEGATIVE); BILIRUBIN, URINE AUTO NEGATIVE (NEGATIVE); BLOOD, URINE BLOOD NEGATIVE (NEGATIVE); COLOR, URINE STRAW (YELLOW); GLUCOSE, URINE (UA) AUTO NEGATIVE (NEGATIVE); KETONE, URINE AUTO NEGATIVE (NEGATIVE); LEUKOCYTE ESTERASE, URINE AUTO TRACE (NEGATIVE); NITRITE, URINE AUTO NEGATIVE (NEGATIVE); PROTEIN, URINE AUTO NEGATIVE (NEGATIVE); RBC, URINE AUTO 2 /HPF (0-3); SPECIFIC GRAVITY URINE AUTO 1.004 (1.002-1.035); SQUAMOUS EPITHELIAL CELL UR AU 0 /HPF (0-6); UROBILINOGEN, URINE AUTO 0.2 mg/dL (0.0-2.0); WBC, URINE AUTO 1 /HPF (0-3)
[2024-03-26] MEDS: VANCOMYCIN HCL 500 MG in D5W MINI-BAG PLUS 100 ML IV ONE (20:30)
[2024-03-27] VITALS: BP 99/57; TEMP 99; O2SAT 93
[2024-03-27 04:00] VITALS: BP 108/69; TEMP 99; O2SAT 93
[2024-03-27 08:00] VITALS: BP 114/68; TEMP 99.3; O2SAT 93
[2024-03-27 09:17] LABS: HEMOGLOBIN 10.7 g/dl (13.5-17.5); MEAN CORPUSCULAR HEMOGLOBIN 30.6 pg (27.0-33.0); MEAN CORPUSCULAR HGB CONC 31.5 g/dl (32.0-36.5); MEAN CORPUSCULAR VOLUME 97.1 fl (80.0-96.0); PLATELET COUNT, AUTOMATED 134 10^3/uL (150-450); WHITE BLOOD COUNT 6.4 10^3/uL (4.0-10.0)
[2024-03-27 09:37] LABS: VANCOMYCIN RANDOM 18.6 UG/ML
[2024-03-27 09:43] LABS: ALBUMIN 2.8 G/DL (3.2-5.2); BILIRUBIN,TOTAL 0.4 MG/DL (0.3-1.2); CALCIUM LEVEL 9.6 MG/DL (8.3-10.6); CREATININE FOR GFR 2.44 MG/DL (0.70-1.30); GLOMERULAR FILTRATION RATE 28.3 (>49); PHOSPHORUS LEVEL 3.1 MG/DL (2.4-5.1); POTASSIUM SERUM 4.7 MMOL/L (3.5-5.1); TOTAL PROTEIN 5.7 G/DL (5.7-8.2)
[2024-03-27 10:08] LABS: ATYPICAL LYMPH 2 % (0-5); EOSINOPHILS 2 % (0-3); LYMPHOCYTES 12 % (16-44); MONOCYTES 9 % (0-5); NEUTROPHILS 67 % (28-66)
[2024-03-27 10:09] LABS: PLATELET ESTIMATE NORMAL (NORMAL)
[2024-03-27] MEDS: D5W 1,000 ML IV ONE (10:45)
[2024-03-27] MEDS ORDERED: DALV1SOL IV (11:19)
[2024-03-27 12:00] VITALS: BP 111/76; TEMP 99.5; O2SAT 93
== END 2024-03-27 13:40 | disposition home or self-care (01) | DRG 871 ==
LOC: M ED 12:44 → EDBD 12:44 → EEVIPCON 16:44 → M ED INP 16:44 → M ICU 23:33
PROVIDERS: ADMIT Student in an Organized Health Care Education/Training Program; ATTEND Student in an Organized Health Care Education/Training Program
DX: A41.9 Sepsis, unspecified organism (principal); R65.21 Severe sepsis with septic shock; G93.41 Metabolic encephalopathy; N25.81 Secondary hyperparathyroidism of renal origin; N18.4 Chronic kidney disease, stage 4 (severe); I50.32 Chronic diastolic (congestive) heart failure; I13.0 Hypertensive heart and chronic kidney disease with heart failure and stage 1 through stage 4 chronic kidney disease, or unspecified chronic kidney disease; L03.115 Cellulitis of right lower limb; N17.9 Acute kidney failure, unspecified; E87.20 Acidosis, unspecified; E87.5 Hyperkalemia; F79 Unspecified intellectual disabilities; F25.9 Schizoaffective disorder, unspecified; E11.22 Type 2 diabetes mellitus with diabetic chronic kidney disease; E78.5 Hyperlipidemia, unspecified; G40.909 Epilepsy, unspecified, not intractable, without status epilepticus; D50.9 Iron deficiency anemia, unspecified; K21.9 Gastro-esophageal reflux disease without esophagitis; K75.81 Nonalcoholic steatohepatitis (NASH); N40.0 Benign prostatic hyperplasia without lower urinary tract symptoms; H40.9 Unspecified glaucoma; Z86.16 Personal history of COVID-19; Z79.01 Long term (current) use of anticoagulants; Z79.899 Other long term (current) drug therapy; Z88.8 Allergy status to other drugs, medicaments and biological substances; R91.1 Solitary pulmonary nodule

== ENCOUNTER 2024-03-27 13:37 | Outpatient (CLI) | payer MEDICARE, MEDICAID ==
[~2024-03-27 13:37] MED LIST changes: +DALV1SOL IV; +DEBR6.5S4 AU; +HALO1TAB19 PO; +OLAN7.5T8 PO; +OLOP2.5D7 OD; +THERTAB52 PO; +TRIA1CRE5 TOP
[2024-03-27] MEDS: DALBAVANCIN 1,125 MG in D5W 250 ML IV ONE (15:04)
== END 2024-03-27 15:50 | disposition home or self-care (01) ==
LOC: M OPCLIICU 13:37 → M ICU 13:41 → M OPCLIICU 15:50
PROVIDERS: ATTEND Student in an Organized Health Care Education/Training Program
DX: L03.115 Cellulitis of right lower limb (principal); B95.62 Methicillin resistant Staphylococcus aureus infection as the cause of diseases classified elsewhere; Z88.6 Allergy status to analgesic agent
CPT/HCPCS: 96365; J0875

== ENCOUNTER 2024-04-19 17:28 | Emergency (ER) | payer MEDICARE, MEDICAID ==
[2024-04-19 17:52] VITALS: BP 113/72; TEMP 98.8; O2SAT 95
[2024-04-19 19:15] LABS: HEMATOCRIT 37.8 % (42.0-52.0); HEMOGLOBIN 11.9 g/dl (13.5-17.5); MEAN CORPUSCULAR HEMOGLOBIN 30.7 pg (27.0-33.0); MEAN CORPUSCULAR HGB CONC 31.5 g/dl (32.0-36.5); MEAN CORPUSCULAR VOLUME 97.4 fl (80.0-96.0); PLATELET COUNT, AUTOMATED 171 10^3/uL (150-450); RED BLOOD COUNT 3.88 10^6/uL (4.30-6.10); WHITE BLOOD COUNT 6.6 10^3/uL (4.0-10.0)
[2024-04-19 19:41] LABS: CALCIUM LEVEL 9.7 MG/DL (8.3-10.6); CREATININE FOR GFR 2.45 MG/DL (0.70-1.30); GLOMERULAR FILTRATION RATE 28.1 (>49); POTASSIUM SERUM 4.5 MMOL/L (3.5-5.1)
[2024-04-19] MEDS ORDERED: GABA-1171 PO (20:13)
== END 2024-04-19 23:09 | disposition home or self-care (01) ==
LOC: EDBD 17:28 → M ED 17:28
DX: U07.1 COVID-19 (principal); N18.30 Chronic kidney disease, stage 3 unspecified; N40.0 Benign prostatic hyperplasia without lower urinary tract symptoms; E11.9 Type 2 diabetes mellitus without complications; F31.9 Bipolar disorder, unspecified; F41.9 Anxiety disorder, unspecified; F25.9 Schizoaffective disorder, unspecified; Z79.01 Long term (current) use of anticoagulants; Z79.1 Long term (current) use of non-steroidal anti-inflammatories (NSAID); Z79.899 Other long term (current) drug therapy

== ENCOUNTER → 2024-07-09 | Outpatient (REF) | payer MEDICARE, MEDICAID ==
[~2024-07-09] MED LIST changes: -AZEL0.1S; +AZEL137S8; +GABA-1171 PO; +LEVA15HF2 INH; -LEVAINH INH; +NYST1POW3 TOP; -NYST1POW9 TOP
[2024-07-09 14:44] LABS: BASO % 0.6 % (0.0-1.0); EOS # 0.2 10^3/uL (0.0-0.5); EOS % 3.3 % (0.0-3.0); HEMATOCRIT 37.3 % (42.0-52.0); HEMOGLOBIN 11.7 g/dl (13.5-17.5); LYMPH # 1.8 10^3/uL (1.5-5.0); LYMPH % 28.1 % (24.0-44.0); MEAN CORPUSCULAR HEMOGLOBIN 30.2 pg (27.0-33.0); MEAN CORPUSCULAR HGB CONC 31.4 g/dl (32.0-36.5); MEAN CORPUSCULAR VOLUME 96.1 fl (80.0-96.0); MONO # 0.6 10^3/uL (0.0-0.8); MONO % 8.9 % (2.0-8.0); NEUTROPHILS # 3.7 10^3/uL (1.5-8.5); NEUTROPHILS % 58.5 % (36.0-66.0); PLATELET COUNT, AUTOMATED 224 10^3/uL (150-450); RED BLOOD COUNT 3.88 10^6/uL (4.30-6.10); WHITE BLOOD COUNT 6.3 10^3/uL (4.0-10.0)
[2024-07-09 14:46] LABS: LITHIUM LEVEL 0.81 MMOL/L (1.0-1.20)
[2024-07-09 14:47] LABS: ALBUMIN 3.9 G/DL (3.2-5.2); BILIRUBIN,TOTAL 0.5 MG/DL (0.3-1.2); CHOLESTEROL RISK RATIO 4.41 (<5); CREATININE FOR GFR 2.15 MG/DL (0.70-1.30); GLOMERULAR FILTRATION RATE 32.7 (>49); HDL CHOLESTEROL 31.5 MG/DL (>40); LDL CHOLESTEROL 61.7 MG/DL (<100); NON-HDL-C 107.5 MG/DL; POTASSIUM SERUM 4.5 MMOL/L (3.5-5.1); PROLACTIN 83.46 NG/ML (2.1-17.7); THYROID STIMULATING HORMONE 1.449 uIU/ML (0.55-4.78); TOTAL PROTEIN 6.7 G/DL (5.7-8.2)
[2024-07-09 15:35] LABS: HEMOGLOBIN A1c 5.8 % (4.0-6.0)
== END ==
LOC: M LABDRWAD 12:59
PROVIDERS: ATTEND Physician Assistant
DX: Z79.899 Other long term (current) drug therapy (principal)

== ENCOUNTER → 2024-10-06 | Outpatient (REF) | payer MEDICARE, MEDICAID ==
[~2024-10-06] MED LIST changes: -LORA2TA PO; +LORA2TAB15 PO
[2024-10-06 18:32] LABS: BASO % 0.5 % (0.0-1.0); EOS # 0.2 10^3/uL (0.0-0.5); EOS % 2.7 % (0.0-3.0); HEMATOCRIT 34.9 % (42.0-52.0); HEMOGLOBIN 10.9 g/dl (13.5-17.5); LYMPH # 1.6 10^3/uL (1.5-5.0); LYMPH % 25.2 % (24.0-44.0); MEAN CORPUSCULAR HEMOGLOBIN 29.9 pg (27.0-33.0); MEAN CORPUSCULAR HGB CONC 31.2 g/dl (32.0-36.5); MEAN CORPUSCULAR VOLUME 95.9 fl (80.0-96.0); MONO # 0.7 10^3/uL (0.0-0.8); MONO % 10.2 % (2.0-8.0); NEUTROPHILS # 3.9 10^3/uL (1.5-8.5); NEUTROPHILS % 61.1 % (36.0-66.0); PLATELET COUNT, AUTOMATED 201 10^3/uL (150-450); RED BLOOD COUNT 3.64 10^6/uL (4.30-6.10); WHITE BLOOD COUNT 6.4 10^3/uL (4.0-10.0)
[2024-10-06 18:35] LABS: PERCENT SATURATION 24.9 % (19.7-50.0)
[2024-10-06 18:36] LABS: ALBUMIN 3.7 G/DL (3.2-5.2); BILIRUBIN,TOTAL 0.4 MG/DL (0.3-1.2); CALCIUM LEVEL 9.2 MG/DL (8.3-10.6); CHOLESTEROL RISK RATIO 3.93 (<5); CREATININE FOR GFR 2.27 MG/DL (0.70-1.30); FERRITIN 84.8 NG/ML (10.5-307.3); GLOMERULAR FILTRATION RATE 30.7 (>49); HDL CHOLESTEROL 32.3 MG/DL (>40); LDL CHOLESTEROL 44.5 MG/DL (<100); NON-HDL-C 94.7 MG/DL; POTASSIUM SERUM 4.8 MMOL/L (3.5-5.1); PSA SCREENING 0.19 NG/ML (< 4.00); TOTAL PROTEIN 6.4 G/DL (5.7-8.2)
[2024-10-06 18:37] LABS: TOTAL 25(OH) VITAMIN D 41.2 NG/ML (20.0-100.0)
== END ==
LOC: M SFHCADAM 10:53
PROVIDERS: ATTEND Physician Assistant
DX: Z28.21 Immunization not carried out because of patient refusal (principal); R91.1 Solitary pulmonary nodule; N18.32 Chronic kidney disease, stage 3b; F17.211 Nicotine dependence, cigarettes, in remission; R19.5 Other fecal abnormalities; Z86.2 Personal history of diseases of the blood and blood-forming organs and certain disorders involving the immune mechanism; Z79.01 Long term (current) use of anticoagulants; Z12.5 Encounter for screening for malignant neoplasm of prostate; Z00.00 Encounter for general adult medical examination without abnormal findings; E78.5 Hyperlipidemia, unspecified
CPT/HCPCS: 80053; 80061; 82306; 82728; 83550; 85025; G0103

== ENCOUNTER → 2024-12-02 | Outpatient (CLI) | payer MEDICARE, MEDICAID | LOC: M WHC 10:31 | PROVIDERS: ATTEND Physician Assistant | DX: Z13.820 Encounter for screening for osteoporosis (principal) ==

== ENCOUNTER → 2024-12-22 | Outpatient (REF) | payer MEDICARE, MEDICAID ==
[~2024-12-22] MED LIST changes: -FLOM0.4C39 PO; +OLAN7.5T38 PO; -OLAN7.5T8 PO; +TAMS-18 PO; -TRIA25CR TOP; +TRIA80CR15 TOP
== END ==
LOC: M SFHCADAM 17:30
PROVIDERS: ATTEND Family Medicine
DX: R05.1 Acute cough (principal)

== ENCOUNTER → 2025-04-08 | Outpatient (REF) | payer MEDICARE, MEDICAID ==
[~2025-04-08] MED LIST changes: +AMMO12CR4 TOP; -AMMO12CR7 TOP; +OLAN20TA74 PO
[2025-04-08 17:29] LABS: BASO # 0.1 10^3/uL (0.0-0.2); BASO % 0.8 % (0.0-1.0); EOS # 0.2 10^3/uL (0.0-0.5); EOS % 2.7 % (0.0-3.0); LYMPH # 1.5 10^3/uL (1.5-5.0); LYMPH % 25.5 % (24.0-44.0); MONO # 0.5 10^3/uL (0.0-0.8); MONO % 9.0 % (2.0-8.0); NEUTROPHILS # 3.7 10^3/uL (1.5-8.5); NEUTROPHILS % 61.3 % (36.0-66.0); PLATELET COUNT, AUTOMATED 201 10^3/uL (150-450)
[2025-04-08 17:37] LABS: ALT/SGPT 76.0 U/L (7.0-40); AST/SGOT 36.0 U/L (<34); CALCIUM LEVEL 9.6 MG/DL (8.3-10.6); CARBON DIOXIDE LEVEL 32.0 MMOL/L (20-31); CHLORIDE LEVEL 107.0 MMOL/L (98-107); CREATININE FOR GFR 2.41 MG/DL (0.70-1.30); GLOMERULAR FILTRATION RATE 28.4 (>49); IRON (FE) 102.0 UG/DL (65-175); PERCENT SATURATION 35.2 % (19.7-50.0); POTASSIUM SERUM 4.8 MMOL/L (3.5-5.1); SODIUM LEVEL 146.0 MMOL/L (136-145)
[2025-04-08 17:38] LABS: FREE T4 1.07 NG/DL (0.89-1.76)
[2025-04-08 18:15] LABS: VITAMIN B12 LEVEL 1202.0 PG/ML (211-911)
[2025-04-08 18:38] LABS: ESTIMATED AVERAGE GLUCOSE 120.0 MG/DL (60-110)
== END ==
LOC: M SFHCADAM 12:07
PROVIDERS: ATTEND Physician Assistant
DX: D64.9 Anemia, unspecified (principal); K75.81 Nonalcoholic steatohepatitis (NASH); E11.22 Type 2 diabetes mellitus with diabetic chronic kidney disease; I10 Essential (primary) hypertension; N18.32 Chronic kidney disease, stage 3b; Z86.718 Personal history of other venous thrombosis and embolism; K21.9 Gastro-esophageal reflux disease without esophagitis; R19.5 Other fecal abnormalities; R40.0 Somnolence

== ENCOUNTER → 2025-04-13 | Outpatient (CLI) | payer MEDICARE, MEDICAID | LOC: M PLAIMG 08:02 | PROVIDERS: ATTEND Physician Assistant | DX: R91.1 Solitary pulmonary nodule (principal) ==

== ENCOUNTER → 2025-05-25 | Outpatient (CLI) | payer MEDICARE, MEDICAID ==
[2025-05-25 18:52] LABS: BASO # 0.0 10^3/uL (0.0-0.2); BASO % 0.8 % (0.0-1.0); EOS # 0.2 10^3/uL (0.0-0.5); EOS % 4.2 % (0.0-3.0); LYMPH # 1.5 10^3/uL (1.5-5.0); LYMPH % 28.8 % (24.0-44.0); MONO # 0.5 10^3/uL (0.0-0.8); MONO % 9.9 % (2.0-8.0); NEUTROPHILS # 2.8 10^3/uL (1.5-8.5); NEUTROPHILS % 55.5 % (36.0-66.0); PLATELET COUNT, AUTOMATED 237 10^3/uL (150-450)
== END ==
LOC: M PLALAB 14:46
PROVIDERS: ATTEND Student in an Organized Health Care Education/Training Program
DX: J06.9 Acute upper respiratory infection, unspecified (principal)